=== PATIENT | female | born 1945 | race Caucasian/White ===

== ENCOUNTER → 2016-06-04 | Outpatient (CLI) | payer MEDICARE ==
[~2016-06-04] MED LIST: AMOX-355 PO; ATEN1TAB46 PO; AZTH50T PO; CALC-80 PO; CLON2TAB3 PO; FLC1T PO; FLUO40CA PO; HYDR-3583 PO; HYDR1TAB PO; MAGN400T6 PO; OXAP600T2 PO; PANT40TA PO; POTA20PA3 PO; PRD20T PO; SIMV80TA3 PO
--- OUTSIDE RECORDS SUMMARY | 2016-06-04 14:27 | XMS REPORT | Continuity of Care Document ---
Author Author [facility] Organization [facility] Address Unknown Phone Unavailable Allergies Active Description Code Type Severity Reaction Onset Reported/Identified Relationship to Patient Clinical Status Yes latex [id number] Drug Allergy Unknown N/A 05/16/2005 Yes Sulfa (Sulfonamide Antibiotics) [id number] Drug Allergy Unknown N/A 05/16/2005 Medications Problems Date Dx Coded Attending Type Code Diagnosis Diagnosed By 02/11/2010 Ot 530.81 02/11/2010 Ot 535.40 02/28/2010 Ot 575.11 11/26/2010 Ot 558.9 11/26/2010 Ot 783.21 01/19/2011 Ot 787.91 03/02/2011 Ot 787.91 04/21/2014 MIRIAN ARNOLD MD Ot 401.9 04/21/2014 MIRIAN ARNOLD MD Ot 780.2 04/21/2014 MIRIAN ARNOLD MD Ot 780.4 04/21/2014 MIRIAN ARNOLD MD Ot V76.12 05/08/2014 MIRIAN ARNOLD MD Ot 401.9 05/08/2014 MIRIAN ARNOLD MD Ot 780.2 05/08/2014 MIRIAN ARNOLD MD Ot 780.4 05/08/2014 MIRIAN ARNOLD MD Ot V76.12 03/29/2015 Ot V76.12 03/29/2015 Ot 530.81 03/29/2015 Ot 575.8 03/29/2015 Ot V72.81 03/29/2015 Ot V74.8 03/29/2015 Ot 787.91 03/29/2015 Ot V49.81 03/29/2015 Ot V76.12 03/29/2015 Ot 787.91 03/29/2015 Ot 786.50 03/29/2015 Ot V76.12 03/29/2015 Ot 789.00 03/29/2015 Ot V81.5 03/29/2015 MIRIAN ARNOLD MD Ot 610.1 03/29/2015 MIRIAN ARNOLD MD Ot V76.12 03/29/2015 MIRIAN ARNOLD MD Ot 401.9 03/29/2015 MIRIAN ARNOLD MD Ot 780.2 03/29/2015 MIRIAN ARNOLD MD Ot 780.4 03/29/2015 MIRIAN ARNOLD MD Ot V76.12 04/19/2015 LILIAN DOBSON Ot Z12.31 Procedures Results Encounters ACCT No. Visit Date/Time Discharge Status Pt. Type Provider Facility Loc./Unit Complaint [id number] 03/31/2014 13:56:00 2013 23:59:59 CLS Outpatient MIRIAN ARNOLD MD [facility] RAD [id number] 03/28/2013 08:54:00 2012 23:59:59 CLS Outpatient MIRIAN ARNOLD MD [facility] RAD [id number] 03/29/2015 12:47:00 ACT Outpatient LILIAN DOBSON [facility] RAD [id number] 05/04/2012 08:32:00 Document Registration [id number] 03/10/2012 09:19:00 Document Registration [id number] 04/08/2011 06:10:00 Document Registration [id number] 03/03/2011 00:00:00 Document Registration [id number] 02/17/2011 08:47:00 Document Registration [id number] 01/20/2011 00:00:00 Document Registration [id number] 12/03/2010 10:49:00 Document Registration [id number] 11/26/2010 08:55:00 Document Registration [id number] 10/22/2010 10:15:00 Document Registration [id number] 02/28/2010 05:38:00 Document Registration [id number] 02/25/2010 09:09:00 Document Registration [id number] 02/12/2010 09:01:00 Document Registration [id number] 02/11/2010 07:52:00 Document Registration [id number] 02/05/2010 08:40:00 Document Registration
--- NOTE | 2016-06-04 18:59 | Diagnostic Imaging Report ---
Digital mammogram bilateral screening. This study was compared to the prior exams of 03/29/2015, 03/31/2014, and 03/28/2013. At this time, there are no current complaints. The current study was also evaluated with a Computer Aided Detection (CAD) system. FINDINGS: The fibroglandular tissue in both breasts is heterogeneously dense. This does limit the sensitivity of this exam. Overall, there does not appear to have been any significant change when compared to the prior study. No primary or secondary sign of malignancy is noted. IMPRESSION: There is no radiographic evidence for malignancy. ACR BI-RADS Category 2: Benign findings. Result letter will be mailed to the patient. Note: At least 10% of breast cancer is not imaged by mammography. Dictated by: Dictated on workstation # [id number]
== END ==
LOC: RAD 14:24
PROVIDERS: ATTEND Nurse Practitioner Family
DX: Z12.31 Encounter for screening mammogram for malignant neoplasm of breast (principal)
CPT/HCPCS: 77067

== ENCOUNTER 2016-11-19 11:18 | Inpatient (IN) | payer MEDICARE ==
[~2016-11-19] VITALS: Ht 154.9 cm; Wt 70.4 kg
[2016-11-19 11:33] LABS: BASOPHILS % (AUTO) 0 % (0-10); EOSINOPHILS # (AUTO) 0.1 10^3/uL (0.0-0.3); EOSINOPHILS % (AUTO) 1 % (0-10); LYMPHOCYTES # (AUTO) 1.3 X 10^3 (1.0-4.0); LYMPHOCYTES % (AUTO) 19 % (12-44); MEAN CORPUSCULAR HEMOGLOBIN 31 PG (25-34); MEAN CORPUSCULAR HGB CONC 34 G/DL (32-36); MEAN CORPUSCULAR VOLUME 93 FL (80-99); MEAN PLATELET VOLUME 8.7 FL (7.4-10.4); MONOCYTES # (AUTO) 0.7 X 10^3 (0.0-1.0); MONOCYTES % (AUTO) 9 % (0-12); NEUTROPHILS % (AUTO) 71 % (42-75); PLATELET COUNT 195 10^3/uL (130-400); RED CELL DISTRIBUTION WIDTH 12.8 % (10.0-14.5); WHITE BLOOD COUNT 7.1 10^3/uL (4.3-11.0)
[2016-11-19 11:44] LABS: INR 0.9 (0.8-1.4); PROTHROMBIN TIME PATIENT 12.1 SEC (12.2-14.7)
--- NOTE | 2016-11-19 11:52 | ED Neurological Problem ---
General Chief Complaint: Neuro-Stroke Like Symptoms Stated Complaint: UNSTEADY Nursing Triage Note: ASSISTED PT OUT OF CAR. STATES SHE STARTED ACTING DIFFERENT YESTERDAY. HAVING TROUBLE WALKING AND ACTING "LAZY LIKE". PT STATES THIS MORNING SHE IS HAVING TROUBLE WITH CORDINATION ET NOT ABLE TO HOLD THINGS OR MAKE HER BED ALSO HAVING TROUBLE SAYING WHAT SHE WANTS TO SAY. Nursing Sepsis Screen: No Definite Risk Source: patient Exam Limitations: no limitations History of Present Illness Time seen by provider: 11:22 Initial Comments Here with who reports that the patient has not been acting right since yesterday with increasing confusion and difficulty with moving all of her extremities. Reports that she seems to be terribly uncoordinated and is now having difficulty with speech. Unsure of the cause. Reports taking her meds as directed. No report of fever or vomiting. Patient is slow talking but does answer questions and follows simple commands but appears to be globally weak. No recent injuries reported or noted. Timing/Duration: increasing Severity: moderate, severe Associated Symptoms: confusion, No fever/chills, No nausea/vomiting, slurred speech, trouble walking, weakness Allergies and Home Medications Allergies Coded Allergies: Sulfa (Sulfonamide Antibiotics) (Verified Allergy, Unknown, 05/16/05) latex (Verified Allergy, Unknown, 05/16/05) Home Medications Atenolol/Chlorthalidone 1 Each Tablet, 1 EACH PO DAILY, (Reported) Azathioprine 50 Mg Tablet, 112.5 MG PO EVENING MEAL, (Reported) Calcium Carbonate/Vitamin D3 1 Each Tablet, 1 EACH PO BID, (Reported) Clonazepam 2 Mg Tablet, 10 MG PO HS, (Reported) Fluoxetine Hcl 40 Mg Capsule, 1 EACH PO DAILY, (Reported) Folic Acid 1 Mg Tab, 1 EACH PO HS, (Reported) Oxaprozin 600 Mg Tablet, 1,200 MG PO DAILY, (Reported) Pantoprazole Sodium 40 Mg Tablet.dr, 40 MG PO DAILY, (Reported) Potassium Chloride 20 Meq Packet, 40 MEQ PO BID, (Reported) Constitutional: see HPI, No chills, No fever, malaise, weakness Eyes: No Symptoms Reported Ears, Nose, Mouth, Throat: no symptoms reported Respiratory: no symptoms reported Cardiovascular: no symptoms reported Gastrointestinal: No abdominal pain, No nausea, No vomiting Genitourinary: No dysuria, No pain : No Musculoskeletal: No back pain Skin: no symptoms reported Psychiatric/Neurological: See HPI, Cognitive Dysfunction, Weakness Endocrine: No Symptoms Reported All Other Systems Reviewed Negative Unless Noted: Yes Past Erkncug-Quuznj-Jmgvos Hx Patient Social History Alcohol Use: Denies Use Recreational Drug Use: No Smoking Status: Never a Smoker Recent Foreign Travel: No Contact w/Someone Who Travel: No Recent Infectious Disease Expo: No Surgeries HX Surgeries: Yes Surgeries: Breast, Hysterectomy Respiratory Hx Respiratory Disorders: No Cardiovascular Hx Cardiac Disorders: Yes Cardiac Disorders: Hypertension Neurological Hx Neurological Disorders: Yes Reproductive System Hx Reproductive Disorders: No Sexually Transmitted Disease: No Genitourinary Hx Genitourinary Disorders: No Gastrointestinal Hx Gastrointestinal Disorders: Yes Gastrointestinal Disorders: Colitis, Gastroesophageal Reflux Musculoskeletal Hx Musculoskeletal Disorders: Yes (ARTHRITIS/CHRONIC FATIGUE SYNDROME) Endocrine Hx Endocrine Disorders: No HEENT HX ENT Disorders: No Psychosocial Hx Psychiatric Problems: No Behavioral Health Disorders: Anxiety Blood Transfusions Hx Blood Disorders: No Reviewed Nursing Assessment Reviewed/Agree w Nursing PMH: Yes Family Medical History Significant Family History: No Pertinent Family Hx Physical Exam Vital Signs Vital Sign - Last 12Hours 11/19/16 11:18 Temp 98.0 Pulse 58 Resp 16 B/P (MAP) 153/75 Pulse Ox 93 Capillary Refill : Less Than 3 Seconds General Appearance: WD/WN, mild distress (confusion) HEENT: PERRL/EOMI, pharynx normal Neck: full range of motion, supple Respiratory: lungs clear, normal breath sounds Cardiovascular: regular rate, rhythm, no murmur Peripheral Pulses: 2+ Dorsalis Pedis (R), 2+ Left Dors-Pedis (L), 2+ Radial Pulses (R), 2+ Radial Pulses (L) Gastrointestinal: non tender, soft Back: normal inspection, no CVA tenderness, no vertebral tenderness Extremities: non-tender, normal inspection Neurologic/Psychiatric: alert, motor weakness (global), depressed affect, disoriented x 3 Crainal Nerves: normal hearing, abnormal speech (slowed with word searching), No facial asymmetry, No facial paresthesias, No facial weakness Coordination/Gait: abnormal gait, other (slowed and discoordinated heel-to- porter bilaterally. Unable to perform finger to nose due to discoordination.) Motor/Sensory: no sensory deficit, weak motor strength RUE, weak motor strength LUE, weak motor strength RLE, weak motor strength LLE Skin: normal color, warm/dry Progress/Results/Core Measures Results/Orders Lab Results Laboratory Tests Test 11/19/16 11:25 11/19/16 11:55 Range/Units White Blood Count 7.1 4.3-11.0 10^3/uL Red Blood Count 4.30 L 4.35-5.85 10^6/uL Hemoglobin 13.5 11.5-16.0 G/DL Hematocrit 40 35-52 % Mean Corpuscular Volume 93 80-99 FL Mean Corpuscular Hemoglobin 31 25-34 PG Mean Corpuscular Hemoglobin Concent 34 32-36 G/DL Red Cell Distribution Width 12.8 10.0-14.5 % Platelet Count 195 130-400 10^3/uL Mean Platelet Volume 8.7 7.4-10.4 FL Neutrophils (%) (Auto) 71 42-75 % Lymphocytes (%) (Auto) 19 12-44 % Monocytes (%) (Auto) 9 0-12 % Eosinophils (%) (Auto) 1 0-10 % Basophils (%) (Auto) 0 0-10 % Neutrophils # (Auto) 5.0 1.8-7.8 X 10^3 Lymphocytes # (Auto) 1.3 1.0-4.0 X 10^3 Monocytes # (Auto) 0.7 0.0-1.0 X 10^3 Eosinophils # (Auto) 0.1 0.0-0.3 10^3/uL Basophils # (Auto) 0.0 0.0-0.1 10^3/uL Prothrombin Time 12.1 L 12.2-14.7 SEC INR Comment 0.9 0.8-1.4 Activated Partial Thromboplast Time 24 24-35 SEC D-Dimer 0.48 0.00-0.49 UG/ML Sodium Level 134 L 135-145 MMOL/L Potassium Level 4.5 3.6-5.0 MMOL/L Chloride Level 106 98-107 MMOL/L Carbon Dioxide Level 21 21-32 MMOL/L Anion Gap 7 5-14 MMOL/L Blood Urea Nitrogen 18 7-18 MG/DL Creatinine 1.10 0.60-1.30 MG/DL Estimat Glomerular Filtration Rate 49 BUN/Creatinine Ratio 16 Glucose Level 111 H 70-105 MG/DL Calcium Level 9.5 8.5-10.1 MG/DL Total Bilirubin 0.5 0.1-1.0 MG/DL Aspartate Amino Transf (AST/SGOT) 33 5-34 U/L Alanine Aminotransferase (ALT/SGPT) 27 0-55 U/L Alkaline Phosphatase 54 40-136 U/L Troponin I < 0.30 <0.30 NG/ML Total Protein 7.6 6.4-8.2 GM/DL Albumin 4.2 3.2-4.5 GM/DL Urine Color YELLOW Urine Clarity VERY CLOUDY H Urine pH 5 5-9 Urine Specific [place] 1.020 1.016-1.022 Urine Protein 1+ H NEGATIVE Urine Glucose (UA) NEGATIVE NEGATIVE Urine Ketones NEGATIVE NEGATIVE Urine Nitrite NEGATIVE NEGATIVE Urine Bilirubin NEGATIVE NEGATIVE Urine Urobilinogen NORMAL NORMAL MG/DL Urine Leukocyte Esterase 3+ H NEGATIVE Urine RBC (Auto) 1+ H NEGATIVE Urine RBC 0-2 /HPF Urine WBC 25-50 H /HPF Urine Squamous Epithelial Cells 25-50 H /HPF Urine Crystals NONE /LPF Urine Bacteria TRACE /HPF Urine Casts NONE /LPF Urine Mucus NEGATIVE /LPF Urine Culture Indicated YES My Orders Orders - PARI RAYA MD Cbc With Automated Diff (11/19/16 11:23) Protime With Inr (11/19/16 11:23) Partial Thromboplastin Time (11/19/16 11:23) Comprehensive Metabolic Panel (11/19/16 11:23) Fibrin Degradation Products (11/19/16 11:23) Troponin I (11/19/16 11:23) Ua Culture If Indicated (11/19/16 11:23) Chest 1 View, Ap/Pa Only (11/19/16 11:23) Ekg Tracing (11/19/16 11:23) Nothing By Mouth (11/19/16 Dinner) Accucheck Stat ONCE (11/19/16 11:23) Saline Lock/Iv-Start (11/19/16 11:23) Saline Lock/Iv-Start (11/19/16 11:23) Vital Signs - Stroke Q15M (11/19/16 11:23) Ct Head Wo-R/O Stroke (11/19/16 11:23) O2 (11/19/16 11:23) Intake & Output 06,14,22 (11/19/16 11:23) Monitor-Rhythm Ecg Trace Only (11/19/16 11:23) Dysphagia Screening Tool (11/19/16 11:23) Urine Culture (11/19/16 11:55) Acetaminophen Tablet (Tylenol Tablet) (11/19/16 13:19) Vital Signs/I&O Vital Sign - Last 12Hours 11/19/16 11:18 Temp 98.0 Pulse 58 Resp 16 B/P (MAP) 153/75 Pulse Ox 93 Blood Pressure Mean: 101 Point of Care Testing Finger Stick Blood Glucose: 110 Progress Note : Progress Note Seen and evaluated on arrival. Stroke activation done as last him well time 18- 24 hours ago. Stroke scale done and shows 4 on scale. See attached accurate. This is mostly related to local weakness and difficulty with speech. Patient is not candidate for TPA due to timeframe. This was discussed with the who verbalize understanding. IV, labs, EKG, CT, chest x-ray and UA ordered. Monitor patient. 1300: CT scan findings noted. 1309: Case discussed with Dr. Echeverria who accepts patient for admission, observation status. Patient has passed her dysphagia screen. Patient is complaining of headache but is doing better currently. Tylenol 1 g by mouth given. Patient and family agree with plan. ECG Initial ECG Impression Date: Nov 19, 2016 Initial ECG Impression Time: 11:32 Initial ECG Rate: 69 Initial ECG Rhythm: Normal Sinus Initial ECG Comparisson: Unchanged Comment Sinus rhythm with normal axis. No evidence of ST elevation ID. Similar to previous of 25 February 2010. Interpreted by me. Diagnostic Imaging Diagonstic Imaging: CT Plain Films/CT/US/NM/MRI: head Comments [facility] [place] NAME: MARINE SAMPSON [facility] REC#: [id number] PT STATUS: REG ER : 1945 PHYSICIAN: PARI RAYA MD ADMIT DATE: 11/19/16/ER Draft Date of Exam:11/19/16 CT HEAD WO-R/O STROKE INDICATION: Left-sided weakness. Altered mental status. COMPARISON: 03/31/2014 TECHNIQUE: Routine noncontrast CT of the head was performed. FINDINGS: Since the previous exam, there has been interval development of a fairly well-circumscribed area of decreased attenuation within the periventricular deep white matter of the posterior right frontal lobe adjacent to the posterior horn of the right lateral ventricle. The appearance is suggestive of nonacute infarct. 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 There is no large area of loss of rob-white matter junction differentiation to suggest a large acute territorial infarct. Ventricles and cortical sulci are age-appropriate. There is no significant mass effect or midline shift. There is no evidence of intra-or extra-axial intracranial hemorrhage. No extra-axial masses or fluid collections are seen. IMPRESSION: 1. Interval development of a well-circumscribed area of decreased attenuation within the periventricular deep white matter of the posterior right frontal lobe. Findings are consistent with old infarct. 2. Interval development of punctate areas of old lacunar infarcts within the bilateral cerebellar hemispheres. In lieu of the above findings, this also raises the suspicion for possible history of thromboembolic event. 3. No evidence of intracranial mass or hemorrhage. Dictated on workstation # [id number] Dict: 11/19/16 1149 Trans: 11/19/16 1205 [facility] [id number] Interpreted by: RUSS RUIZ Electronically signed by: Diagonstic Imaging: Xray Plain Films/CT/US/NM/MRI: chest Comments [facility]. [place], [place] NAME: MARINE SAMPSON [facility] REC#: [id number] PT STATUS: REG ER : 1945 PHYSICIAN: PARI RAYA MD ADMIT DATE: 11/19/16/ER Draft Date of Exam:11/19/16 CHEST 1 VIEW, AP/PA ONLY INDICATION: Unsteady gait. Weakness. COMPARISON: None FINDINGS: Single frontal view of the chest demonstrates normal heart size and pulmonary vascularity. The lungs are well aerated and clear. No large pleural effusion or pneumothorax is seen. The visualized osseous structures show no acute abnormalities. IMPRESSION: 1. No acute cardiopulmonary process. Dictated on workstation # [id number] Dict: 11/19/16 1155 Trans: 11/19/16 1202 [place] [id number] Interpreted by: RUSS RUIZ Electronically signed by: Departure Communication Time/Spoke to Admitting Phy: 13:09 Impression Impression: Primary Impression: Altered mental status Qualified Codes: R41.82 - Altered mental status, unspecified Disposition: ADMITTED INPATIENT Condition: Stable Decision to Admit Reason: Admit from ER (General) Decision to Admit/Date: Nov 19, 2016 Time/Decision to Admit Time: 13:09 Departure-Patient Inst. Referrals: CHRISTINE ECHEVERRIA MD (PCP/Family) Primary Care Physician PARI RAYA MD Nov 19, 2016 11:52
[2016-11-19 11:55] LABS: ALANINE AMINOTRANSFERASE 27 U/L (0-55); ALBUMIN 4.2 GM/DL (3.2-4.5); ANION GAP 7 MMOL/L (5-14); ASPARTATE AMINO TRANSFERASE 33 U/L (5-34); BILIRUBIN,TOTAL 0.5 MG/DL (0.1-1.0); BLOOD UREA NITROGEN 18 MG/DL (7-18); BUN/CREATININE RATIO 16; CALCIUM 9.5 MG/DL (8.5-10.1); CARBON DIOXIDE 21 MMOL/L (21-32); CHLORIDE 106 MMOL/L (98-107); GFR ESTIMATED 49; GLUCOSE 111 MG/DL (70-105); POTASSIUM 4.5 MMOL/L (3.6-5.0); SODIUM 134 MMOL/L (135-145); TOTAL PROTEIN 7.6 GM/DL (6.4-8.2)
[2016-11-19 12:01] LABS: TROPONIN I < 0.30 NG/ML (<0.30)
--- NOTE | 2016-11-19 12:03 | Diagnostic Imaging Report ---
INDICATION: Unsteady gait. Weakness. COMPARISON: None FINDINGS: Single frontal view of the chest demonstrates normal heart size and pulmonary vascularity. The lungs are well aerated and clear. No large pleural effusion or pneumothorax is seen. The visualized osseous structures show no acute abnormalities. IMPRESSION: 1. No acute cardiopulmonary process. Dictated by: Dictated on workstation # [id number]
--- NOTE | 2016-11-19 12:06 | Diagnostic Imaging Report ---
INDICATION: Left-sided weakness. Altered mental status. COMPARISON: 03/31/2014 TECHNIQUE: Routine noncontrast CT of the head was performed. FINDINGS: Since the previous exam, there has been interval development of a fairly well-circumscribed area of decreased attenuation within the periventricular deep white matter of the posterior right frontal lobe adjacent to the posterior horn of the right lateral ventricle. The appearance is suggestive of nonacute infarct. 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 There is no large area of loss of rob-white matter junction differentiation to suggest a large acute territorial infarct. Ventricles and cortical sulci are age-appropriate. There is no significant mass effect or midline shift. There is no evidence of intra-or extra-axial intracranial hemorrhage. No extra-axial masses or fluid collections are seen. IMPRESSION: 1. Interval development of a well-circumscribed area of decreased attenuation within the periventricular deep white matter of the posterior right frontal lobe. Findings are consistent with old infarct. 2. Interval development of punctate areas of old lacunar infarcts within the bilateral cerebellar hemispheres. In lieu of the above findings, this also raises the suspicion for possible history of thromboembolic event. 3. No evidence of intracranial mass or hemorrhage. Dictated by: Dictated on workstation # [id number]
[2016-11-19 12:16] LABS: BILIRUBIN,URINE NEGATIVE (NEGATIVE); KETONES,URINE NEGATIVE (NEGATIVE); LEUKOCYTE ESTERASE ,URINE 3+ (NEGATIVE); NITRITE,URINE NEGATIVE (NEGATIVE); PH,URINE 5 (5-9); PROTEIN,URINE 1+ (NEGATIVE); UROBILINOGEN,URINE NORMAL (NORMAL)
[2016-11-19 12:30] LABS: SQUAMOUS EPITHELIAL CELL,UR 25-50 /HPF; WBC,URINE 25-50 /HPF
[2016-11-19] MEDS ORDERED: ACETAMINOPHEN 500 MG TAB (TYLENOL) PO STA (13:19)
[2016-11-19] MEDS ORDERED: PRAV80TA2 PO (13:56)
[2016-11-19] MEDS ORDERED: MESA1.2T2 PO (13:56)
[2016-11-19] MEDS ORDERED: SPIR25TA3 PO (13:56)
[2016-11-19] MEDS ORDERED: CLON0.5T3 PO (13:56)
[2016-11-19] MEDS ORDERED: LOSA100T28 PO (13:56)
[2016-11-19] MEDS ORDERED: PRAM0.5T9 PO (13:56)
[2016-11-19] MEDS ORDERED: DENO60DI SQ (13:56)
[2016-11-19] MEDS ORDERED: SUCR1TAB PO (13:56)
[2016-11-19] MEDS ORDERED: TIMO5DRO5 OU (13:56)
[2016-11-19] MEDS ORDERED: DIPH1TAB25 PO (13:56)
[2016-11-19] MEDS ORDERED: OMEG-9 PO (13:56)
[2016-11-19] MEDS ORDERED: LORA10TA44 PO (13:56)
[2016-11-19] MEDS ORDERED: POTA20TA8 PO (13:56)
[2016-11-19] MEDS ORDERED: BIMA2.5D4 OU (13:56)
[2016-11-19 14:15] VITALS: BP 150/68
[2016-11-19] MEDS: NS IV 1000 ML 1,000 ML IV SCH (15:09)
[2016-11-19 16:50] VITALS: BP 145/80
[2016-11-19] MEDS ORDERED: SUCRALFATE 1 GM (CARAFATE) TAB PO PRN (19:15)
--- NOTE | 2016-11-19 19:15 | History & Physicial ---
History of Present Illness History of Present Illness Reason for visit/HPI PT REPORTS THAT SHE STARTED TO FEEL POORLY YESTERDAY. SHE REPORTS THAT SHE HAD A WEIRD SENSATION IN HER HEAD, FELT LIKE SHE HAD A VICE AROUND HER HEAD ALL DAY TODAY. SHE REPORTS A BAD NIGHT YESTERDAY - WITH SIGNIFICANTLY RESTLESS LEGS AND WOKE UP FEELING FUZZY HEADED AND WEAK. SHE REPORTS THAT SHE WAS NOT ABLE TO MOVE HER ARMS OR LEGS CORRECTLY AND COULD NOT STAND ON HER OWN. AT THIS TIME SHE IS FEELING BETTER, HER WEAKNESS IS IMPROVED, BUT SHE IS NOT YET BACK TO NORMAL. Date of Admission Nov 19, 2016 at 13:15 Date Seen by Provider: Nov 19, 2016 Time Seen by Provider: 18:30 I consulted on this patient on 11/19/16 19:10 Attending Physician Christine Echeverria MD Admitting Physician Christine Echeverria MD Consult Allergies and Home Medications Allergies Coded Allergies: Sulfa (Sulfonamide Antibiotics) (Verified Allergy, Unknown, 05/16/05) latex (Verified Allergy, Unknown, 05/16/05) Home Medications Azathioprine 50 Mg Tablet, 75 MG PO 1700, (Reported) TAKES 1 & 1/2 (50MG) TABLET Bimatoprost 2.5 Ml Drops, 1 DROP OU HS, (Reported) Calcium Carbonate/Vitamin D3 1 Each Tablet, 1 TAB PO HS, (Reported) Clonazepam 0.5 Mg Tablet, 1 MG PO HS, (Reported) TAKES 2 (0.5MG) TABLETS Denosumab 60 Mg/1 Ml Disp.syrin, 60 MG SQ EVERY 6 MONTHS, (Reported) Diphenoxylate HCl/Atropine 1 Each Tablet, 1 TAB PO HS PRN for DIARRHEA, ( Reported) Fluoxetine Hcl 40 Mg Capsule, 40 MG PO DAILY, (Reported) Folic Acid 1 Mg Tab, 1 MG PO 1200, (Reported) Loratadine 10 Mg Tab.rapdis, 10 MG PO DAILY, (Reported) Losartan Potassium 100 Mg Tablet, 100 MG PO HS, (Reported) Mesalamine 1.2 Gm Tablet.dr, 1.2 GM PO HS, (Reported) [place]-3/Dha/Epa/Fish Oil 1 Each Capsule.dr, 1,400 MG PO 1700, (Reported) Potassium Chloride 20 Meq Tab.er.prt, 20 MEQ PO DAILY, (Reported) Pramipexole Di-HCl 0.5 Mg Tablet, 0.5 MG PO HS, (Reported) Pravastatin Sodium 80 Mg Tablet, 80 MG PO HS, (Reported) Spironolactone 25 Mg Tablet, 25 MG PO DAILY, (Reported) Sucralfate 1 Gm Tablet, 1 GM PO BID PRN for STOMACH UPSET, (Reported) Timolol Maleate 5 Ml Drops, 1 DROP OU BID, (Reported) Past [id number] Hx Patient Social History Marrital Status: Living Status: LIVES AT HOME WITH SPOUSE Employed/Student: retired Alcohol Use: Denies Use Recreational Drug Use: No Smoking Status: Never a Smoker 2nd Hand Smoke Exposure: No Physical Abuse Screen: No Sexual Abuse: No Recent Foreign Travel: No Contact w/other who traveled: No Recent Hopitalizations: No (2005. strep, hysterectomy, lumpectomy, collapsed at work 15 years ago) Recent Infectious Disease Expo: No Seasonal Allergies Seasonal Allergies: No Surgeries HX Surgeries: Yes Surgeries: Breast, Hysterectomy Respiratory Hx Respiratory Disorders: No Cardiovascular Hx Cardiovascular Disorders: Yes Cardiac Disorders: Hypertension Neurological Hx Neurological Disorders: Yes Neurological Disorders: TIA Reproductive System : No Hx Reproductive Disorders: No Sexually Transmitted Disease: No Female Reproductive Disorders: Denies Genitourinary Hx Genitourinary Disorders: No Gastrointestinal Hx Gastrointestinal Disorders: Yes Gastrointestinal Disorders: Colitis, Gastroesophageal Reflux, Liver Disease/ Jaundice, Hemorrhoids Musculoskeletal Hx Musculoskeletal Disorders: Yes (ARTHRITIS/CHRONIC FATIGUE SYNDROME) Musculoskeletal Disorders: Arthritis Endocrine Hx Endocrine Disorders: No HEENT HX ENT Disorders: No HEENT Disorders: Cataract, Glaucoma Loss of Vision: Denies Hearing Impairment: Denies Cancer Hx Cancer: No Psychosocial Hx Psychiatric Problems: Yes Behavioral Health Disorders: Anxiety Blood Transfusions Hx Blood Disorders: No Adverse Reaction to a Blood Tr: No Reviewed Nursing Assessment Reviewed/Agree w Nursing PMH: Yes Family Medical History Significant Family History: Hypertension Constitutional: No chills, No fever, malaise, weakness EENTM: No blurred vision, No double vision, No hoarseness, No throat pain Respiratory: No cough, No dyspnea on exertion, No short of breath Cardiovascular: No chest pain, No edema, No palpitations Gastrointestinal: No abdominal pain, No constipation, No diarrhea, No nausea, No vomiting Genitourinary: no symptoms reported : No Musculoskeletal: muscle weakness Skin: No change in color, No lesions, No rash Psychiatric/Neurological: Anxiety, Weakness All Other Systems Reviewed Negative Unless Noted: Yes Physical Exam Vital Signs Vital Sign - Last 12Hours 11/19/16 11/19/16 11:18 14:10 Temp 98.0 Pulse 58 Resp 16 B/P (MAP) 153/75 Pulse Ox 93 O2 Delivery Room Air Capillary Refill : Less Than 3 Seconds General Appearance: No Apparent Distress, WD/WN Eyes: Bilateral Eye EOMI, Bilateral Eye Normal Inspection, Bilateral Eye PERRL HEENT: PERRL/EOMI, Pharynx Normal Neck: Full Range of Motion, Supple Respiratory: Chest Non Tender, Lungs Clear, Normal Breath Sounds, No Accessory Muscle Use, No Respiratory Distress Cardiovascular: Regular Rate, Rhythm, No Edema Gastrointestinal: Normal Bowel Sounds, No Organomegaly, Non Tender, Soft Rectal: Deferred Extremity: Normal Capillary Refill, Non Tender, No Calf Tenderness, No Pedal Edema Neurologic/Psychiatric: Alert, Oriented x3, No Motor/Sensory Deficits, Normal Mood/Affect, nuclear physician II-XII Norm as Tested Skin: Normal Color, Warm/Dry Lymphatic: No Adenopathy Assessment/Plan Assessment and Plan WEAKNESS CONFUSION HX OF TIA HYPERTENSION ANXIETY RESTLESS LEG SYNDROME WEAKNESS AND CONFUSION - IMPROVED AFTER IV FLUIDS, CONTINUE WITH SUPPORTIVE CARE. - CHECK MRI OF BRAIN AND CAROTID ULTRASOUND - CT OF HEAD SHOWED THE FOLLOWING: IMPRESSION: 1. Interval development of a well-circumscribed area of decreased attenuation within the periventricular deep white matter of the posterior right frontal lobe. Findings are consistent with old infarct. 2. Interval development of punctate areas of old lacunar infarcts within the bilateral cerebellar hemispheres. In lieu of the above findings, this also raises the suspicion for possible history of thromboembolic event. 3. No evidence of intracranial mass or hemorrhage. Dictated on workstation # [id number] Interpreted by: RUSS RUIZ Electronically signed by: RUSS RUIZ 11/19/16 2692 HYPERTENSION - START HOME REGIMEN OF [place], HOLD SPIRONOLACTONE. MONITOR BLOOD PRESSURES SERIALLY. ANXIETY - 1/2 DOSE OF CLONAZEPAM TO BE RESTARTED. RESTLESS LEG SYNDROME - REQUIP RESTARTED. DVT PROPHYLAXIS - START SCD'S GI PROPHYLAXIS - PEPCID TO BE STARTED. Problems: Admission Diagnosis WEAKNESS CONFUSION HX OF TIA HYPERTENSION ANXIETY RESTLESS LEG SYNDROME Clinical Quality Measures DVT/VTE Risk/Contraindication: Risk Factor Score Per Nursin RFS Level Per Nursing on Admit: 2=Moderate CHRISTINE ECHEVERRIA MD Nov 19, 2016 19:15
[2016-11-19] MEDS ORDERED: ASPIRIN E.C. 325 MG (ECOTRIN) TABLET PO NR (19:38)
[2016-11-19 20:00] VITALS: BP 144/68
[2016-11-19] MEDS: TIMOLOL MALEATE 0.5% 5 ML (TIMOPTIC) BTL OU SCH (20:31)
[2016-11-19] MEDS: LATANOPROST 0.005% (XALATAN) OPHTH SOLN 2.5 ML OU SCH (20:31)
[2016-11-19] MEDS: LOSARTAN 50 MG (COZAAR) TAB PO SCH (20:32)
[2016-11-19] MEDS: clonazePAM 0.5 MG (KlonoPIN) TAB PO SCH (20:33)
[2016-11-19] MEDS: PRAMIPEXOLE 0.5 MG TAB (MIRAPEX) PO SCH (20:34)
[2016-11-19] MEDS: ATORVASTATIN 80 MG (LIPITOR) TABLET PO SCH (20:34)
[2016-11-20] VITALS (7 sets, daily range): BP systolic 125–157; BP diastolic 60–84
[2016-11-20 06:19] LABS: BASOPHILS % (AUTO) 0 % (0-10); EOSINOPHILS # (AUTO) 0.1 10^3/uL (0.0-0.3); EOSINOPHILS % (AUTO) 1 % (0-10); LYMPHOCYTES # (AUTO) 1.6 X 10^3 (1.0-4.0); LYMPHOCYTES % (AUTO) 22 % (12-44); MEAN CORPUSCULAR HEMOGLOBIN 32 PG (25-34); MEAN CORPUSCULAR HGB CONC 34 G/DL (32-36); MEAN CORPUSCULAR VOLUME 93 FL (80-99); MEAN PLATELET VOLUME 9.1 FL (7.4-10.4); MONOCYTES # (AUTO) 0.7 X 10^3 (0.0-1.0); MONOCYTES % (AUTO) 9 % (0-12); NEUTROPHILS # (AUTO) 4.9 X 10^3 (1.8-7.8); NEUTROPHILS % (AUTO) 67 % (42-75); PLATELET COUNT 174 10^3/uL (130-400); RED BLOOD COUNT 3.98 10^6/uL (4.35-5.85); RED CELL DISTRIBUTION WIDTH 12.8 % (10.0-14.5); WHITE BLOOD COUNT 7.3 10^3/uL (4.3-11.0)
[2016-11-20 06:38] LABS: ALANINE AMINOTRANSFERASE 21 U/L (0-55); ALBUMIN 3.9 GM/DL (3.2-4.5); ANION GAP 9 MMOL/L (5-14); ASPARTATE AMINO TRANSFERASE 27 U/L (5-34); BILIRUBIN,TOTAL 0.5 MG/DL (0.1-1.0); BLOOD UREA NITROGEN 16 MG/DL (7-18); BUN/CREATININE RATIO 18; CALCIUM 8.9 MG/DL (8.5-10.1); CARBON DIOXIDE 20 MMOL/L (21-32); CHLORIDE 107 MMOL/L (98-107); CREATININE SERUM 0.88 MG/DL (0.60-1.30); GFR ESTIMATED > 60; GLUCOSE 99 MG/DL (70-105); POTASSIUM 4.1 MMOL/L (3.6-5.0); SODIUM 136 MMOL/L (135-145); TOTAL PROTEIN 6.8 GM/DL (6.4-8.2)
--- NOTE | 2016-11-20 09:01 | Progress Note (SOAP) ---
Subjective Date Seen by Provider: Nov 20, 2016 Time Seen by Provider: 09:00 Subjective/Events-last exam PT FEELING BETTER TODAY - SHE STATES THAT SHE DOES FEEL STRONGER TODAY. SHE STATES THAT SHE IS NOT HAVING DIZZINESS, NAUSEA CHEST PAIN. Review of Systems General: No Chills, Fatigue HEENT: No Head Aches Pulmonary: No Dyspnea, No Cough Cardiovascular: No: Chest Pain, Palpitations Gastrointestinal: No: Nausea, Abdominal Pain Neurological: Weakness Objective Exam Vital Signs Date Time Temp Pulse Resp B/P (MAP) Pulse Ox O2 Delivery O2 Flow Rate FiO2 11/20/16 08:00 97.4 65 16 132/79 98 Room Air 11/20/16 04:00 98.0 62 18 132/67 95 Room Air 11/20/16 00:00 98.6 61 16 130/60 94 Room Air 11/19/16 20:00 97.9 62 18 144/68 99 Room Air 11/19/16 16:50 97.5 61 18 145/80 97 Room Air 11/19/16 14:15 58 16 150/68 100 Room Air 11/19/16 14:10 Room Air 11/19/16 13:43 57 18 98 11/19/16 11:18 98.0 58 16 153/75 93 I & O 11/20/16 07:00 Intake Total 600 ml Output Total 800 ml Balance -200 ml Capillary Refill : Less Than 3 Seconds General Appearance: No Apparent Distress, WD/WN HEENT: PERRL/EOMI, Pharynx Normal Neck: Full Range of Motion, Supple Respiratory: Chest Non Tender, Lungs Clear, Normal Breath Sounds Cardiovascular: Regular Rate, Rhythm Gastrointestinal: normal bowel sounds, non tender, soft Extremity: No Pedal Edema Neurologic/Psychiatric: Alert, Oriented x3, No Motor/Sensory Deficits Skin: Warm/Dry Lymphatic: No Adenopathy Results Lab Laboratory Tests 11/19/16 11:25: White Blood Count 7.1, Red Blood Count 4.30L, Hemoglobin 13.5, Hematocrit 40, Mean Corpuscular Volume 93, Mean Corpuscular Hemoglobin 31, Mean Corpuscular Hemoglobin Concent 34, Red Cell Distribution Width 12.8, Platelet Count 195, Mean Platelet Volume 8.7, Neutrophils (%) (Auto) 71, Lymphocytes (%) (Auto) 19, Monocytes (%) (Auto) 9, Eosinophils (%) (Auto) 1, Basophils (%) (Auto) 0, Neutrophils # (Auto) 5.0, Lymphocytes # (Auto) 1.3, Monocytes # (Auto) 0.7, Eosinophils # (Auto) 0.1, Basophils # (Auto) 0.0, Prothrombin Time 12.1L, INR Comment 0.9, Activated Partial Thromboplast Time 24, D-Dimer 0.48, Sodium Level 134L, Potassium Level 4.5, Chloride Level 106, Carbon Dioxide Level 21, Anion Gap 7, Blood Urea Nitrogen 18, Creatinine 1.10, Estimat Glomerular Filtration Rate 49, BUN/Creatinine Ratio 16, Glucose Level 111H, Calcium Level 9.5, Total Bilirubin 0.5, Aspartate Amino Transf (AST/SGOT) 33, Alanine Aminotransferase ( ALT/SGPT) 27, Alkaline Phosphatase 54, Troponin I < 0.30, Total Protein 7.6, Albumin 4.2 11/19/16 11:37: Glucometer 110 11/19/16 11:55: Urine Color YELLOW, Urine Clarity VERY CLOUDYH, Urine pH 5, Urine Specific [place] 1.020, Urine Protein 1+H, Urine Glucose (UA) NEGATIVE, Urine Ketones NEGATIVE, Urine Nitrite NEGATIVE, Urine Bilirubin NEGATIVE, Urine Urobilinogen NORMAL, Urine Leukocyte Esterase 3+H, Urine RBC (Auto) 1+H, Urine RBC 0-2, Urine WBC 25-50H, Urine Squamous Epithelial Cells 25-50H, Urine Crystals NONE, Urine Bacteria TRACE, Urine Casts NONE, Urine Mucus NEGATIVE, Urine Culture Indicated YES 11/20/16 05:38: White Blood Count 7.3, Red Blood Count 3.98L, Hemoglobin 12.6, Hematocrit 37, Mean Corpuscular Volume 93, Mean Corpuscular Hemoglobin 32, Mean Corpuscular Hemoglobin Concent 34, Red Cell Distribution Width 12.8, Platelet Count 174, Mean Platelet Volume 9.1, Neutrophils (%) (Auto) 67, Lymphocytes (%) (Auto) 22, Monocytes (%) (Auto) 9, Eosinophils (%) (Auto) 1, Basophils (%) (Auto) 0, Neutrophils # (Auto) 4.9, Lymphocytes # (Auto) 1.6, Monocytes # (Auto) 0.7, Eosinophils # (Auto) 0.1, Basophils # (Auto) 0.0, Sodium Level 136, Potassium Level 4.1, Chloride Level 107, Carbon Dioxide Level 20L, Anion Gap 9, Blood Urea Nitrogen 16, Creatinine 0.88, Estimat Glomerular Filtration Rate > 60, BUN/ Creatinine Ratio 18, Glucose Level 99, Calcium Level 8.9, Total Bilirubin 0.5, Aspartate Amino Transf (AST/SGOT) 27, Alanine Aminotransferase (ALT/SGPT) 21, Alkaline Phosphatase 44, Total Protein 6.8, Albumin 3.9 Microbiology 11/19/16 Urine Culture - Preliminary, Resulted Group B Streptococci See Comments Assessment/Plan Assessment/Plan Assess & Plan/Chief Complaint WEAKNESS CONFUSION HX OF TIA HYPERTENSION ANXIETY RESTLESS LEG SYNDROME WEAKNESS AND CONFUSION - IMPROVED AFTER IV FLUIDS, CONTINUE WITH SUPPORTIVE CARE. - CHECK MRI OF BRAIN AND CAROTID ULTRASOUND - CT OF HEAD SHOWED THE FOLLOWING: IMPRESSION: 1. Interval development of a well-circumscribed area of decreased attenuation within the periventricular deep white matter of the posterior right frontal lobe. Findings are consistent with old infarct. 2. Interval development of punctate areas of old lacunar infarcts within the bilateral cerebellar hemispheres. In lieu of the above findings, this also raises the suspicion for possible history of thromboembolic event. 3. No evidence of intracranial mass or hemorrhage. Dictated on workstation # [id number] Interpreted by: RUSS RUIZ Electronically signed by: RUSS RUIZ 11/19/16 [id number] HYPERTENSION - START HOME REGIMEN OF [place], HOLD SPIRONOLACTONE. MONITOR BLOOD PRESSURES SERIALLY. ANXIETY - 1/2 DOSE OF CLONAZEPAM TO BE RESTARTED. RESTLESS LEG SYNDROME - REQUIP RESTARTED. DVT PROPHYLAXIS - START SCD'S GI PROPHYLAXIS - PEPCID TO BE STARTED. Clinical Quality Measures DVT/VTE Risk/Contraindication: Risk Factor Score Per Nursin RFS Level Per Nursing on Admit: 2=Moderate CHRISTIEN LUNDY MD Nov 20, 2016 09:01
--- NOTE | 2016-11-20 09:42 | Diagnostic Imaging Report ---
PROCEDURE: MR imaging of the brain without contrast. TECHNIQUE: Multiplanar, multisequence MR imaging of the brain was performed without contrast. INDICATION: Unsteadiness, weakness accompanied by head pain. Also with confusion. COMPARISON: 08/12/2007 FINDINGS: There are multiple predominantly right-sided supratentorial foci of edema and abnormal diffusion restriction in the parietal and occipital lobes suggestive of multiple small punctate foci of acute to subacute ischemia. The largest confluent area of suspected recent infarct adjacent to the posterior body of the right lateral ventricle measures 15 mm x 8mm. None of the foci exert a mass effect. There are at least 2 tiny peripheral cortical foci in the high posterior left frontal lobe and the high posterior left parietal lobes near the vertex. The brainstem and posterior fossa were unremarkable. Findings on the right suggest multiple foci of ischemia on a watershed infarct basis. Correlation with a CT angiography of the neck and head recommended as further evaluation. No hemorrhagic component or resultant mass effect. Orbits and paranasal sinuses are unremarkable. No abnormal extra-axial fluid collection. The basilar cisterns are patent. The sulci were non-effaced. IMPRESSION: Multiple small bilateral predominantly supratentorial, right greater than left, areas of small cortical infarct. On the right, these are predominately along the MCA/[employer] junction and are likely of a watershed basis. Correlative CT angio neck and head recommended as further evaluation. A few tiny left-sided cortical infarcts peripherally are noted, as well. No posterior fossa or brainstem ischemia. No hemorrhagic component or mass effect. I will phone these results to the ordering physician. Dictated by: Dictated on workstation # [id number]
[2016-11-20] MEDS: FLUoxetine HCL 20 MG (PROzac) CAP PO SCH (10:12)
[2016-11-20] MEDS: cefTRIAXone INJECTION 1,000 MG in NS (IVPB) 50 ML IV SCH (10:13)
[2016-11-20] MEDS: KCL 20 MEQ TAB (K-DUR) PO SCH (10:13)
[2016-11-20] MEDS: ASPIRIN E.C. 325 MG (ECOTRIN) TABLET PO SCH (10:13)
[2016-11-20] MEDS: TIMOLOL MALEATE 0.5% 5 ML (TIMOPTIC) BTL OU SCH ×2 (10:13→20:24)
[2016-11-20] MEDS ORDERED: CLOPIDOGREL 75 MG (PLAVIX) TABLET PO NR (10:15)
--- NOTE | 2016-11-20 11:00 | Diagnostic Imaging Report ---
PROCEDURE: US Carotid Duplex Bilateral. TECHNIQUE: Multiple real-time grayscale images were obtained over the carotid arteries in various projections bilaterally. Additional duplex Doppler and color Doppler images were also obtained. INDICATION: CVA. Altered mental status. Speech difficulty. FINDINGS: There is no significant plaque seen on grayscale images. Color Doppler demonstrates patency of the common, internal and external carotid arteries bilaterally. Antegrade flow in the vertebral arteries is seen on both sides. Peak systolic velocities in the right the ICA is 55, 69 and 70 cm/s from proximal to distal and on the left side is 77, 71 and 90 cm/s. ICA over CCA ratio is up to 1.3 on the right side and up to one on the left side. IMPRESSION: Estimated underlying stenosis is in the range of 0-40% bilaterally. Dictated by: Dictated on workstation # [id number]
[2016-11-20] MEDS ORDERED: IOHEXOL 350 MG/ML 100 ML (OMNIPAQUE 350) VIAL IV ONE (11:15)
[2016-11-20] MEDS: NS IV 1000 ML 1,000 ML IV SCH ×2 (11:34→16:07)
--- NOTE | 2016-11-20 14:45 | Physical Therapy Evaluation ---
PT Evaluation-General Medical Diagnosis Admission Date Nov 20, 2016 at 09:52 Medical Diagnosis: AMS Onset Date: Nov 19, 2016 Therapy Diagnosis Therapy Diagnosis: debility Height/Weight Height (Feet): 5 Height (Inches): 1.00 Weight (Pounds): 155 Weight (Ounces): 5.0 Precautions Precautions/Isolations: Fall Prevention, Standard Precautions Referral Physician: Juwan Reason for Referral: Evaluation/Treatment Medical History Pertinent Medical History: HTN Additional Medical History restless leg syndrome, anxiety Current History to ER via spouse; reported patient was acting "different", unable to hold things , etc. Reviewed History: Yes Social History Home: Multilevel Current Living Status: Spouse PT Steps Into Home: 3 PT Steps Inside Home: 14 Prior/Core FIM Prior Level of Function Functional [place] Measure 0=Not Assessed/NA 4=Minimal Assistance 1=Total Assistance 5=Supervision or Setup 2=Maximal Assistance 6=Modified [place] 3=Moderate Assistance 7=Complete [place] Bed Mobility: 7 Transfers (B,C,W/C) (FIM): 7 Gait: 7 PT Evaluation-Current Subjective Agrees to PT. Pain Numeric Pain Scale: 0-No Pain Location: No Pain Reported Objective Patient Orientation: Normal For Age Problem Solving: Fair ROM/Strength ROM Lower Extremities bilateral LE WNL Strenght Lower Extremities left knee flexion/extension 4/5; hip flexion 4/5; ankle dorsi/plantarflexion 4/5 right knee flexion/extension 4/5; hip flexion 4/5; ankle dorsi/plantarflexion 4/ 5 Integumentary/Posture Integumentary refer to nursing notes Bowel Incontinence: No Bladder Incontinence: No Posture WNL Neuromuscular (Tone, Coordination, Reflexes) grossly intact Sensory Vision: glaucoma Hearing: Functional Sensation Right Lower Extremit: Intact Sensation Left Lower Extremity: Intact Transfers Functional [place] Measure 0=Not Assessed/NA 4=Minimal Assistance 1=Total Assistance 5=Supervision or Setup 2=Maximal Assistance 6=Modified [place] 3=Moderate Assistance 7=Complete [place] Transfers (B, C, W/C) (FIM): 7 Scootin Rollin Supine to/from Sit: 7 Sit to/from Stand: 7 Gait Mode of Locomotion: Walk Anticipated Mode of Locomotion: Walk Gait (FIM): 6 Distance (FIM): 3=150 ft Distance: 800' Gait Level of Assist: 6 Gait Persons Needed: 1 Gait Assistive Device: FWW Comments/Gait Description safe and functional with FWW Stairs Stairs (FIM): 5 #of Steps: 12 Level of Assist: 5 Balance Sitting Static: Normal Sitting Dynamic: Normal Standing Static: Normal Standing Dynamic: Normal Assessment/Needs 71 y.o. female, will benefit from short term skilled PT to address functional strength and mobility to improve current LOF and to safely return to home at maximum. Rehab Potential: Good PT Short Term Goals Short Term Goals Time Frame: Nov 22, 2016 Transfers (B,C,W/C) (FIM): 7 Gait (FIM): 6 Distance (FIM): 3=150 ft Gait Level of Assist: 6 Gait Assistive Device: FWW PT Plan Treatment/Plan Treatment Plan: Continue Plan of Care Treatment Plan: Education, Functional Activity Noah, Functional Strength, Gait , Safety, Therapeutic Exercise Treatment Duration: Nov 22, 2016 Frequency: Daily Estimated Hrs Per Day: .25 hour per day Patient and/or Family Agrees t: Yes Safety Risks/Education Patient Education: Gait Training, Steps Teaching Recipient: Patient Teaching Methods: Demonstration, Discussion Response to Teaching: Verbalize Understanding, Return Demonstration Discharge Recommendations Therapy D/C Recommendations: Home w/ Family Support Equpiment Recommendations-D/C: Front Wheeled Walker Time/GCodes Time In: 1410 Time Out: 1435 Total Billed Treatment Time: 25 [facility] C[facility] Necessary: WILLIAMS Stone PT Nov 20, 2016 14:45
--- NOTE | 2016-11-20 16:48 | Occupational Therapy Eval ---
OT Evaluation-General/PLF Medical Diagnosis Admission Date Nov 20, 2016 at 09:52 Medical Diagnosis: AMS Onset Date: Nov 19, 2016 Therapy Diagnosis Therapy Diagnosis: Weakness Height/Weight Height (Feet): 5 Height (Inches): 1.00 Weight (Pounds): 155 Weight (Ounces): 5.0 Precautions Precautions/Isolations: Fall Prevention, Standard Precautions Safety Interventions: Bed Exit Alarm, Reorient-Attempt, Reorient-PRN Referral Physician: Juwan Referral Reason: Activity Tolerance, Self Care, Evaluation/Treatment, Strengthening/ROM Medical History Pertinent Medical History: Arthritis, GERD, HTN Additional Medical History Breast surgery, hysterectomy, anxiety, TIA, old infarct Current History Pt. states that she became very weak at home. States that she couldnt move her legs or arms well. States that she wasn't dizzy, but just wasnt "thinking" straight. Reviewed History: Yes Social History Home: Multilevel (Bedroom on second floor) Current Living Status: Spouse Entry Into Home: Stairs With Railing Steps Into Home: 3 Steps Inside Home: 14 ADL-Prior Level of Function ADL PLOF Comments Pt. states that she was independent with all tasks, and that her spouse assisted her. States that she does not drive due to visual issues. DME/Equipment: Bath Chair, Tub/Shower Occupation: Retired from [employer] Self: No OT Current Status Subjective No pain reported. Pt. states that she is "feeling better" today. Appearance Pt. in bed. Agrees to work with OT. Mental Status/Objective Patient Orientation: Person Attachments: IV Current Glasses/Contacts: Yes Hand Dominance: Right Upper Extremity ROM Pt. is able to demonstrate full ROM in bilateral UE. Upper Extremity Coordination intact Upper Extremity Strength 3+/5 bilateral UE strength ADL-Treatment Functional [place] Measure 0=Not Assessed/NA 4=Minimal Assistance 1=Total Assistance 5=Supervision or Setup 2=Maximal Assistance 6=Modified [place] 3=Moderate Assistance 7=Complete IndependenceIRFPAI Quality Coding Scale 6 Independent with activity with or without an assistive device 5 Patient requires set up or clean up by helper. Patient completes activity by themselves 4 Supervision or touching assist (CGA). [place] provide cues , steadying assist 3 The helper provides less than half the effort to complete the activity 2 The helper provides more than half the effort to complete the activity 1 Dependent. The helper does all the effort to complete an activity 7 Patient refused to complete or attempt activity 9 The patient did not perform the activity before the current illness or injury 88 Not attempted due to Medical conditions or safety concerns Bathing (FIM): 5 (Pt. completely showered with SBA. Pt. stood for most of shower, closed eyes to wash hair. Tolerated this well. OT close due to first time seeing pt. Pt. states that her spouse will be with her for these things at all times at home.) Lower Body Dressing (FIM): 7 (Pt. able to doff/don socks independently. No other street clothing available. Able to doff underwear, and was going to call spouse to bring her new ones.) Transfers (B, C, W/C) (FIM): 5 (Pt. requires SBA with walker due to stating that she still "feels a little week." Spouse will be with her.) Shower Transfer (FIM): 5 Other Treatments Pt. demonstrates ability to shower, and don hospital gown, socks. Pt. is educated on safety, energy conservation, and taking her time at home. Verbalizes understanding. Pt. states that she feels like she is doing better. Does report that her spouse will not "leave my side" when she gets home. Pt. is able to transfer back to bed independently after shower. Education OT Patient Education: Correct positioning, Energy conservation, Modified ADL techniques, Progress toward Goal/Update tx plan, Purpose of tx/functional activities, Reviewed precautions, Rehab process, Transfer techniques Teaching Recipient: Patient Teaching Methods: Demonstration, Discussion Response to Teaching: Verbalize Understanding, Return Demonstration OT Short Term Goals Short Term Goals Transfers (B,C,W/C) (FIM): 7 1=Demonstrate adherence to instructed precautions during ADL tasks. 2=Patient will verbalize/demonstrate understanding of assistive devices/ modifications for ADL. 3=Patient will improve strength/tolerance for activity to enable patient to perform ADL's. OT Improvement Rn Goals Halfway Goals Time Frame: Nov 20, 2016 Additional Goals: 1-Demonstrate ADL Tasks, 2-Verbalize Understanding, 3- ImproveStrength/Noah 1=Demonstrate adherence to instructed precautions during ADL tasks. 2=Patient will verbalize/demonstrate understanding of assistive devices/ modifications for ADL. 3=Patient will improve strength/tolerance for activity to enable patient to perform ADL's. All goals met. Pt. is able to complete ADL tasks with SBA/Mod I. Pt. will fully have SBA/supervision at home with spouse per her report. OT Education/Plan Problem List/Assessment Assessment: No Skilled OT Needs ID'd Discharge Recommendations Plan/Recommendations: Discharge/Goals Met Therapy D/C Recommendations: Home w/ Family Support Target Placement Home with spouse assist. Treatment Plan/Plan of Care Treatment,Training & Education: Yes Treatment Duration: Nov 20, 2016 Frequency: 1 time per month Estimated Hrs Per Day: .5 hour per day Agreement: Yes Rehab Potential: Good Time/GCodes Start Time: 14:35 Stop Time: 15:15 Total Time Billed (hr/min): 40 Billed Treatment Time 1, EVM x 15minutes, ADL x 25minutes TANNER GONZALEZ OT Nov 20, 2016 16:48
--- NOTE | 2016-11-20 17:09 | Diagnostic Imaging Report ---
PROCEDURE: CT angiography of the head and CT angiography of the neck with and without contrast. TECHNIQUE: Contiguous noncontrast images were obtained from the skull base through the vertex. After intravenous contrast administration, helical CT angiography of the neck was performed. Source data was reformatted into multiple MIP projections. Delayed post contrast acquisition was also obtained. INDICATION: Altered mental status. 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 FINDINGS: CTA neck: There is a right paratracheal area of fullness seen probably related to the unopacified azygos arch. The aortic arch is patent, and the origins of the great vessels are patent. The right common carotid and right subclavian and the brachiocephalic arteries are all patent. The internal carotid artery demonstrates no significant stenosis. The right vertebral artery is relatively small but appears patent. The left common carotid artery, the left internal and left external carotid arteries are all patent with no significant stenosis. The left vertebral artery appears patent. Soft tissues in the neck demonstrate symmetric parotid, submandibular, and thyroid glands with no definite abnormality. The larynx and the mucosal pharyngeal space appear intact. The paranasal sinuses appear clear. CTA head: The left vertebral artery is dominant, and the small right vertebral artery is patent. The basilar artery is patent. Both posterior cerebral arteries appear patent. In the anterior circulation, the internal carotid arteries demonstrate atherosclerotic plaque within the cavernous and supraclinoid segments without high-grade stenosis evident. The middle and anterior cerebral arteries appears patent. The major venous sinuses appear patent. The parenchymal phase demonstrates hypodensity in the right parietal region corresponding to the acute infarct earlier seen on MRI, although the hypodensity is slightly larger which may relate to background chronic ischemic findings in the white matter. There is no enhancing mass. IMPRESSION: CTA neck: There is no significant carotid artery stenosis. CTA head: 1. The major intracranial vessels are patent with no high-grade stenosis, occlusion, or aneurysm seen. 2. Right parietal periventricular white matter hypodensity corresponds to area of acute infarct seen on MRI with possible chronic component. Dictated by: Dictated on workstation # [id number]
[2016-11-20] MEDS: LATANOPROST 0.005% (XALATAN) OPHTH SOLN 2.5 ML OU SCH (20:24)
[2016-11-20] MEDS: PRAMIPEXOLE 0.5 MG TAB (MIRAPEX) PO SCH (20:25)
[2016-11-20] MEDS: clonazePAM 0.5 MG (KlonoPIN) TAB PO SCH (20:25)
[2016-11-20] MEDS: ATORVASTATIN 80 MG (LIPITOR) TABLET PO SCH (20:25)
[2016-11-20] MEDS: LOSARTAN 50 MG (COZAAR) TAB PO SCH (20:25)
[2016-11-21 04:02] VITALS: BP 153/63
--- NOTE | 2016-11-21 07:37 | Physician Query Clarification ---
PQ-Link Manifestation-Etiology Admission/Discharge Admission Date: Nov 20, 2016 at 09:52 Discharge Date: The medical record reflects the following clinical scenario: History/Risk Factors: Hypertension History of TIA Clinical Findings: Difficulty walking, unsteady gait,uncoordinated,muscle weakness, confusion, slurred speech,headache. Multiple small bilateral predominantly supratentorial, right greater than left, areas of small cortical infarct. Treatment: Plavix 75mg,Aspirin,325mg Question: Can you specify if the symptoms of difficulty walking, unsteadiness, muscle weakness, confusion, slurred speech and headache are due to/associated with TIA or CVA? Please clarify and document a response below PHYSICIAN RESPONSE Manifestation due to/assoic: Other,explanation/clinical finding (TIA, UTI) In responding to this query, please exercise your independent professional judgment. The purpose of this communication is to more accurately reflect the complexity of your patients condition. The fact that a question is asked does not imply that any particular answer is desired or expected. Thank you for your timely response to this clarification. Requestors name: Danuta Rodriguez [facility] Phone # [phone] [phone] THIS PHYSICIAN QUERY FORM IS A PERMANENT PART OF THE MEDICAL RECORD DANUTA RODRIGUEZ Nov 21, 2016 07:37 CHRISTINE LUNDY MD Nov 26, 2016 13:51
--- NOTE | 2016-11-21 07:48 | Physician Query Clarification ---
PQ-Intro New Diagnosis Admission/Discharge Admission Date: Nov 20, 2016 at 09:52 Discharge Date: The medical record reflects the following clinical scenario: History/Risk Factors: Weakness Altered mental status Clinical Findings: Urine clarity-Very Cloudy, UA-Urine protein 1+, Urine leukocyte Esterase 3+, Urine RBC 1+, Urine WBC 25-50 and Urine Squamous epith cells 25-50. Urine culture->100,000 Group B Strep Treatment: IV Cefriaxone Sodium/Sodium Chloride. Question: What condition best reflects the above clinical scenario? Please document below. 1. UTI due to Group B Strep. 2. Abnormal UA and positive urine culture only. 3. Other, with explanation of the clinical findings. 4. Clinically undetermined, no explanation for the clinical findings. PHYSICIAN RESPONSE What condition reflects above: 1 In responding to this query, please exercise your independent professional judgment. The purpose of this communication is to more accurately reflect the complexity of your patients condition. The fact that a question is asked does not imply that any particular answer is desired or expected. Thank you for your timely response to this clarification. Requestors name: Danuta Rodriguez [facility] Phone # ext [phone] or [phone] THIS PHYSICIAN QUERY FORM IS A PERMANENT PART OF THE MEDICAL RECORD DANUTA RODRIGUEZ Nov 21, 2016 07:48 CHRISTINE LUNDY MD Nov 26, 2016 13:51
[2016-11-21 07:51] VITALS: BP 138/60
[2016-11-21] MEDS: cefTRIAXone INJECTION 1,000 MG in NS (IVPB) 50 ML IV SCH (08:43)
[2016-11-21] MEDS: KCL 20 MEQ TAB (K-DUR) PO SCH (08:43)
[2016-11-21] MEDS: FLUoxetine HCL 20 MG (PROzac) CAP PO SCH (08:43)
[2016-11-21] MEDS: ASPIRIN E.C. 325 MG (ECOTRIN) TABLET PO SCH (08:43)
[2016-11-21] MEDS: TIMOLOL MALEATE 0.5% 5 ML (TIMOPTIC) BTL OU SCH (08:44)
[2016-11-21] MEDS ORDERED: CLOPIDOGREL 75 MG (PLAVIX) TABLET PO SCH (09:00)
[2016-11-21] MEDS ORDERED: CLOP75TA28 PO (10:11)
[2016-11-21] MEDS ORDERED: AMOX-358 PO (10:11)
[2016-11-21] MEDS ORDERED: ASPI-983 PO (10:11)
[2016-11-21] MEDS ORDERED: LACT1CAP87 PO (10:11)
--- NOTE | 2016-11-21 10:14 | Discharge Inst-Complex ---
PDI Med Rec & Follow Up Appt. New Medications: Amoxicillin/Potassium Clav (Augmentin 875-125 Tablet) 1 Each Tablet 1 EACH PO BID for 5 Days, #10 TAB Aspirin (Aspirin EC) 81 Mg Tablet.dr 81 MG PO DAILY for 30 Days, #30 TAB 11 Refills Lactobacillus Acidophilus (Acidophilus Lactobacilli) 1 Each Capsule 1 EACH PO BID for 7 Days, #14 CAP Clopidogrel Bisulfate (Clopidogrel) 75 Mg Tablet 75 MG PO DAILY for 30 Days, #30 TAB 6 Refills Continued Medications: Azathioprine (Imuran) 50 Mg Tablet 75 MG PO 1700, TAB TAKES 1 & 1/2 (50MG) TABLET Bimatoprost (Lumigan) 2.5 Ml Drops 1 DROP OU HS, DROPS Calcium Carbonate/Vitamin D3 (Calcium 600 + D Caplet) 1 Each Tablet 1 TAB PO HS, TAB Clonazepam (Clonazepam) 0.5 Mg Tablet 1 MG PO HS, TAB TAKES 2 (0.5MG) TABLETS Denosumab (Prolia) 60 Mg/1 Ml Disp.syrin 60 MG SQ EVERY 6 MONTHS, SYRINGE Diphenoxylate HCl/Atropine (Diphenoxylate-Atrop 2.5-0.025) 1 Each Tablet 1 TAB PO HS PRN for DIARRHEA, TAB Fluoxetine Hcl (Fluoxetine Hcl) 40 Mg Capsule 40 MG PO DAILY, CAP Folic Acid (Folic Acid Tab) 1 Mg Tab 1 MG PO 1200, TAB Loratadine (Alavert) 10 Mg Tab.rapdis 10 MG PO DAILY, TAB Losartan Potassium (Losartan Potassium) 100 Mg Tablet 100 MG PO HS, TAB Mesalamine (Lialda) 1.2 Gm Tablet. 1.2 GM PO HS, TAB [place]-3/Dha/Epa/Fish Oil (Fish Oil 1,400 mg Softgel) 1 Each Capsule.dr 1400 MG PO 1700, CAP Potassium Chloride (Klor-Con M20) 20 Meq Tab.er.prt 20 MEQ PO DAILY, TAB Pramipexole Di-HCl (Pramipexole Dihydrochloride) 0.5 Mg Tablet 0.5 MG PO HS, TAB Pravastatin Sodium (Pravastatin Sodium) 80 Mg Tablet 80 MG PO HS, TAB Spironolactone (Spironolactone) 25 Mg Tablet 25 MG PO DAILY, TAB Sucralfate (Sucralfate) 1 Gm Tablet 1 GM PO BID PRN for STOMACH UPSET, TAB Timolol Maleate (Timolol Maleate 0.5%) 5 Ml Drops 1 DROP OU BID, EA Prescription: Transmitted to Pharmacy Patient Instructions: [facility] APPT IN 2 WEEKS, [facility] WILL BE CALLING WITH AN APPT FOR DR. RM - NEUROLOGIST IN [place] Activity, Diet and PDI Resume Normal Activity: Yes Discharge Diet: Other Diet (RESUME HOME DIET) Drink 6-8 Glasses of Fluid/Day: Yes Driving Instructions: No Driving/Refer to Return to The Hospital For: ANY CONCERN FOR WORSENING SYMPTOMS, INCREASE IN CONFUSION, WORSENING WEAKNESS, ALTERED MENTAL STATUS, OR OTHER LIFETHREATENING CONCERNS Symptoms to Reoprt to : Fever Over 101 Degrees F, Pain/Pressure in Chest, Memory Changes Suddenly, Questions/Concerns, Shortness of Breath For Problems or Questions: Contact Your Physician, Go to Emergency Room CHRISTINE LUNDY MD Nov 21, 2016 10:13
--- NOTE | 2016-11-21 10:22 | Discharge Summary ---
Diagnosis/Chief Complaint Date of Admission Nov 20, 2016 at 09:52 Date of Discharge Discharge Date: Nov 21, 2016 Discharge Time: 1200 Admission Diagnosis Admission Diagnosis WEAKNESS CONFUSION HX OF TIA HYPERTENSION ANXIETY RESTLESS LEG SYNDROME Discharge Diagnosis PARIETAL STROKE WEAKNESS URINARY TRACT INFECTION CONFUSION HX OF TIA HYPERTENSION ANXIETY RESTLESS LEG SYNDROME Reason Hospital Visit PT REPORTS THAT SHE STARTED TO FEEL POORLY YESTERDAY. SHE REPORTS THAT SHE HAD A WEIRD SENSATION IN HER HEAD, FELT LIKE SHE HAD A VICE AROUND HER HEAD ALL DAY TODAY. SHE REPORTS A BAD NIGHT YESTERDAY - WITH SIGNIFICANTLY RESTLESS LEGS AND WOKE UP FEELING FUZZY HEADED AND WEAK. SHE REPORTS THAT SHE WAS NOT ABLE TO MOVE HER ARMS OR LEGS CORRECTLY AND COULD NOT STAND ON HER OWN. AT THIS TIME SHE IS FEELING BETTER, HER WEAKNESS IS IMPROVED, BUT SHE IS NOT YET BACK TO NORMAL. Discharge Summary Discharge Physical Examination Allergies: Coded Allergies: Sulfa (Sulfonamide Antibiotics) (Verified Allergy, Unknown, 05/16/05) latex (Verified Allergy, Unknown, 05/16/05) Vitals & I&Os Vital Signs Date Time Temp Pulse Resp B/P (MAP) Pulse Ox O2 Delivery O2 Flow Rate FiO2 11/21/16 07:51 97.3 64 18 138/60 98 Room Air General Appearance: Alert, Oriented X3, Cooperative, No Acute Distress HEENT: Atraumatic, PERRLA, Mucous Memb Moist/[place] Respiratory: Clear to Auscultation, Normal Air Movement Cardiovascular: Regular Rate Abdominal: Normal Bowel Sounds, Soft, No Tenderness Extremities: No Clubbing, No Cyanosis, No Edema, Normal Pulses, No Tenderness/ Swelling Skin: No Rashes, No Breakdown Neuro: Normal Gait, Normal Speech, Strength at 5/5 X4 Ext, Cranial Nerves 3-12 NL Psych/Mental Status: Mental Status NL, Mood NL Hospital Course PARIETAL STROKE WEAKNESS URINARY TRACT INFECTION CONFUSION HX OF TIA HYPERTENSION ANXIETY RESTLESS LEG SYNDROME ADMISSION NOTE: WEAKNESS AND CONFUSION - IMPROVED AFTER IV FLUIDS, CONTINUE WITH SUPPORTIVE CARE. - CHECK MRI OF BRAIN AND CAROTID ULTRASOUND - CT OF HEAD SHOWED THE FOLLOWING: IMPRESSION: 1. Interval development of a well-circumscribed area of decreased attenuation within the periventricular deep white matter of the posterior right frontal lobe. Findings are consistent with old infarct. 2. Interval development of punctate areas of old lacunar infarcts within the bilateral cerebellar hemispheres. In lieu of the above findings, this also raises the suspicion for possible history of thromboembolic event. 3. No evidence of intracranial mass or hemorrhage. Dictated on workstation # [id number] Interpreted by: RUSS RUIZ Electronically signed by: RUSS RUIZ 11/19/16 1707 HYPERTENSION - START HOME REGIMEN OF [place], HOLD SPIRONOLACTONE. MONITOR BLOOD PRESSURES SERIALLY. UTI - GROUP B STREP - AUGMENTIN OUTPATIENT X 5 MORE DAYS. ANXIETY - 1/2 DOSE OF CLONAZEPAM TO BE RESTARTED. RESTLESS LEG SYNDROME - REQUIP RESTARTED. DVT PROPHYLAXIS - START SCD'S GI PROPHYLAXIS - PEPCID TO BE STARTED. MRI OF BRAIN SHOWED THE FOLLOWING: IMPRESSION: Multiple small bilateral predominantly supratentorial, right greater than left, areas of small cortical infarct. On the right,these are predominately along the MCA/[employer] junction and are likely of a watershed basis. Correlative CT angio neck and head recommended as further evaluation. A few tiny left-sided cortical infarcts peripherally are noted,as well. No posterior fossa or brainstem ischemia. No hemorrhagic component or mass effect. Dictated by: Interpreted by: ROLANDO MORALES Electronically signed by: ROLANDO MORALES 11/20/16 1710 CAROTID ULTRASOUND:IMPRESSION: Estimated underlying stenosis is in the range of 0-40% bilaterally. REFERRAL TO DR. RM - NEUROLOGIST IN [place] - CONTINUE WITH PLAVIX AND ASPIRIN , STATIN, PHYSICAL THERAPY OUTPATIENT. DISCHARGE TO HOME TODAY Discharge Condition at discharge IMPROVING Instructions to patient/family Please see electonic discharge instructions given to patient. Discharge Medications Reviewed and agree with Discharge Medication list on patient's Discharge Instruction sheet Clinical Quality Measures DVT/VTE Risk/Contraindication: Risk Factor Score Per Nursin RFS Level Per Nursing on Admit: 2=Moderate CHRISTINE LUNDY MD Nov 21, 2016 10:22
== END 2016-11-21 11:20 | disposition home or self-care (01) | DRG 65 ==
LOC: EDUNIT# 11:18 → ER 11:21 → 4TH 13:15 → UNDOADMOB 13:15 → 4TH 14:10 → INTOOBSV 11-20 09:52 → OBSVTOIN 11-20 09:52 → UNDODISIN 11-21 11:20 → ENPENDDIS 11-21 12:00
PROVIDERS: ADMIT Family Medicine; ATTEND Family Medicine
DX: I63.511 Cerebral infarction due to unspecified occlusion or stenosis of right middle cerebral artery (principal); N39.0 Urinary tract infection, site not specified; B95.1 Streptococcus, group B, as the cause of diseases classified elsewhere; R26.81 Unsteadiness on feet; R26.89 Other abnormalities of gait and mobility; M62.81 Muscle weakness (generalized); R47.81 Slurred speech; R41.0 Disorientation, unspecified; I10 Essential (primary) hypertension; G25.81 Restless legs syndrome; K76.9 Liver disease, unspecified; H40.9 Unspecified glaucoma; K21.9 Gastro-esophageal reflux disease without esophagitis; M19.91 Primary osteoarthritis, unspecified site; R53.82 Chronic fatigue, unspecified; F41.9 Anxiety disorder, unspecified; Z86.73 Personal history of transient ischemic attack (TIA), and cerebral infarction without residual deficits
CPT/HCPCS: 36415; 70450; 70496; 70498; 70551; 71010; 80053; 81000; 82962; 84484; 85025; 85379; 85610; 85730; 87088; 93005; 93041; 93306; 93880; G0378

== ENCOUNTER 2017-01-07 09:56 | Outpatient (RCR) | payer MEDICARE ==
[~2017-01-07 09:56] MED LIST changes: +AMOX-358 PO; +ASPI-983 PO; +BIMA2.5D4 OU; +CLON0.5T3 PO; +CLOP75TA28 PO; +DENO60DI SQ; +DIPH1TAB25 PO; +LACT1CAP87 PO; +LORA10TA44 PO; +LOSA100T28 PO; +MESA1.2T2 PO; +OMEG-9 PO; +POTA20TA8 PO; +PRAM0.5T9 PO; +PRAV80TA2 PO; +SPIR25TA3 PO; +SUCR1TAB PO; +TIMO5DRO5 OU
== END 2017-01-10 | disposition home or self-care (01) ==
PROVIDERS: ATTEND Nurse Practitioner Family
DX: K21.9 Gastro-esophageal reflux disease without esophagitis; I69.991 Dysphagia following unspecified cerebrovascular disease

== ENCOUNTER 2017-05-24 09:01 | Inpatient (IN) | payer MEDICARE ==
[~2017-05-24] VITALS: Ht 157.5 cm; Wt 69.5 kg
[2017-05-24 09:20] LABS: BASOPHILS # (AUTO) 0.1 10^3/uL (0.0-0.1); BASOPHILS % (AUTO) 1 % (0-10); EOSINOPHILS % (AUTO) 0 % (0-10); HEMATOCRIT 43 % (35-52); HEMOGLOBIN 14.7 G/DL (11.5-16.0); LYMPHOCYTES # (AUTO) 1.5 X 10^3 (1.0-4.0); LYMPHOCYTES % (AUTO) 18 % (12-44); MEAN CORPUSCULAR HEMOGLOBIN 33 PG (25-34); MEAN CORPUSCULAR HGB CONC 34 G/DL (32-36); MEAN CORPUSCULAR VOLUME 95 FL (80-99); MONOCYTES # (AUTO) 0.9 X 10^3 (0.0-1.0); MONOCYTES % (AUTO) 10 % (0-12); NEUTROPHILS # (AUTO) 6.1 X 10^3 (1.8-7.8); NEUTROPHILS % (AUTO) 71 % (42-75); PLATELET COUNT 236 10^3/uL (130-400); RED BLOOD COUNT 4.49 10^6/uL (4.35-5.85); RED CELL DISTRIBUTION WIDTH 12.9 % (10.0-14.5); WHITE BLOOD COUNT 8.6 10^3/uL (4.3-11.0)
--- NOTE | 2017-05-24 09:21 | ED Neurological Problem ---
General Stated Complaint: POSSIBLE STROKE Source: patient, spouse Exam Limitations: clinical condition History of Present Illness Date Seen by Provider: May 24, 2017 Time Seen by Provider: 09:10 Initial Comments Patient presents to ER by primary conveyance with a chief complaint that last night her found her propped up against the wall after hearing a thud upstairs. She states she fell in her left side of her parietal scalp was hurting but she does not have a knot there. She doesn't member she had lost consciousness and does not member much or what she was doing prior to during or after the fall. She is complaining of some right side parietal scalp pain. She states she has a history of a TIA in the past. She is on aspirin and Plavix but no other blood thinners. She does not have any heart history although she has been put on a monitor by Dr. Andujar looking for atrial fibrillation. She's also been complaining of acid reflux the last day or so. She says she routinely takes Pepcid for this. She has no smoking or drinking history. She is prediabetic. Allergies and Home Medications Allergies Coded Allergies: Sulfa (Sulfonamide Antibiotics) (Verified Allergy, Unknown, 05/16/05) latex (Verified Allergy, Unknown, 05/16/05) Home Medications Amoxicillin/Potassium Clav 1 Each Tablet, 1 EACH PO BID for 5 Days, #10 Prescribed by: CHRISTINE LUNDY on 11/21/16 1011 Aspirin 81 Mg Tablet.dr, 81 MG PO DAILY for 30 Days, #30 Ref 11 Prescribed by: CHRISTINE LUNDY on 11/21/16 1011 Azathioprine 50 Mg Tablet, 75 MG PO 1700, (Reported) TAKES 1 & 1/2 (50MG) TABLET Bimatoprost 2.5 Ml Drops, 1 DROP OU HS, (Reported) Calcium Carbonate/Vitamin D3 1 Each Tablet, 1 TAB PO HS, (Reported) Clonazepam 0.5 Mg Tablet, 1 MG PO HS, (Reported) TAKES 2 (0.5MG) TABLETS Clopidogrel Bisulfate 75 Mg Tablet, 75 MG PO DAILY for 30 Days, #30 Ref 6 Prescribed by: CHRISTINE LUNDY on 11/21/16 1011 Denosumab 60 Mg/1 Ml Disp.syrin, 60 MG SQ EVERY 6 MONTHS, (Reported) Diphenoxylate HCl/Atropine 1 Each Tablet, 1 TAB PO HS PRN for DIARRHEA, ( Reported) Fluoxetine Hcl 40 Mg Capsule, 40 MG PO DAILY, (Reported) Folic Acid 1 Mg Tab, 1 MG PO 1200, (Reported) Lactobacillus Acidophilus 1 Each Capsule, 1 EACH PO BID for 7 Days, #14 Prescribed by: CHRISTINE LUNDY on 11/21/16 1011 Loratadine 10 Mg Tab.rapdis, 10 MG PO DAILY, (Reported) Losartan Potassium 100 Mg Tablet, 100 MG PO HS, (Reported) Mesalamine 1.2 Gm Tablet.dr, 1.2 GM PO HS, (Reported) [place]-3/Dha/Epa/Fish Oil 1 Each Capsule.dr, 1,400 MG PO 1700, (Reported) Potassium Chloride 20 Meq Tab.er.prt, 20 MEQ PO DAILY, (Reported) Pramipexole Di-HCl 0.5 Mg Tablet, 0.5 MG PO HS, (Reported) Pravastatin Sodium 80 Mg Tablet, 80 MG PO HS, (Reported) Spironolactone 25 Mg Tablet, 25 MG PO DAILY, (Reported) Sucralfate 1 Gm Tablet, 1 GM PO BID PRN for STOMACH UPSET, (Reported) Timolol Maleate 5 Ml Drops, 1 DROP OU BID, (Reported) Constitutional: No chills, No diaphoresis, No fever, No malaise Eyes: Denies Blindness, Denies Blurred Vision, Denies Pain, Denies Photophobia Ears, Nose, Mouth, Throat: denies ear pain, denies ear discharge Respiratory: No cough, No short of breath Cardiovascular: No chest pain, No edema, No palpitations Gastrointestinal: No abdominal pain, No constipation, No diarrhea, No nausea Genitourinary: No discharge, No dysuria Musculoskeletal: No back pain, No joint pain Skin: No pruritus, No rash Past Fokrpku-Ytvuke-Ohxqls Hx Patient Social History Alcohol Use: Denies Use Recreational Drug Use: No Smoking Status: Current Everyday Smoker 2nd Hand Smoke Exposure: No Recent Foreign Travel: No Contact w/Someone Who Travel: No Recent Hopitalizations: No (2005. strep, hysterectomy, lumpectomy, collapsed at work 15 years ago) Seasonal Allergies Seasonal Allergies: No Surgeries History of Surgeries: Yes Surgeries: Breast, Hysterectomy Respiratory History of Respiratory Disorde: No Currently Using CPAP: No Currently Using BIPAP: No Cardiovascular History of Cardiac Disorders: No Cardiac Disorders: Hypertension Neurological History of Neurological Disord: No Neurological Disorders: TIA Reproductive System Hx Reproductive Disorders: No Sexually Transmitted Disease: No Female Reproductive Disorders: Denies Genitourinary History of Genitourinary Disor: No Gastrointestinal History of Gastrointestinal Di: Yes Gastrointestinal Disorders: Colitis, Gastroesophageal Reflux, Liver Disease/ Jaundice, Hemorrhoids Musculoskeletal History of Musculoskeletal Dis: Yes Musculoskeletal Disorders: Arthritis Endocrine History of Endocrine Disorders: Yes (DIET CONTROLLED DM ) HEENT History of HEENT Disorders: Yes HEENT Disorders: Cataract, Glaucoma Loss of Vision: Denies Hearing Impairment: Denies Cancer History of Cancer: No Psychosocial History of Psychiatric Problem: Yes Behavioral Health Disorders: Anxiety Integumentary History of Skin or Integumenta: No Blood Transfusions History of Blood Disorders: No Adverse Reaction to a Blood Tr: No Family Medical History Significant Family History: Hypertension Physical Exam Vital Signs Vital Signs - First Documented 05/24/17 09:34 Temp 97.9 Pulse 62 Resp 22 B/P (MAP) 173/91 (118) Pulse Ox 97 Capillary Refill : General Appearance: WD/WN, no apparent distress HEENT: PERRL/EOMI, normal ENT inspection, TMs normal, pharynx normal Neck: non-tender, full range of motion, supple, normal inspection Respiratory: chest non-tender, lungs clear, normal breath sounds, no respiratory distress, no accessory muscle use Cardiovascular: normal peripheral pulses, regular rate, rhythm, systolic murmur Peripheral Pulses: 2+ Radial Pulses (R), 2+ Radial Pulses (L) Gastrointestinal: normal bowel sounds, non tender, soft Extremities: normal range of motion, non-tender, normal inspection, no pedal edema, no calf tenderness, normal capillary refill Neurologic/Psychiatric: alert, normal mood/affect, oriented x 3, other (right lower extremity 2 out of 5 strength and right upper extremity has some drift. She has little dysarthria difficulty getting out her words but no confusion, or other speech disorder.) Crainal Nerves: normal hearing, normal speech, PERRL Motor/Sensory: no sensory deficit Skin: normal color, warm/dry Stroke Onset of Symptoms Date of Onset of Symptoms: May 23, 2017 Time of Symptom Onset: 10:00 Onset of Symptoms: Yes Symptoms onset unknown: No NIH Stroke Scale Assessment Select: Initial Level of Consciousness: 0=Alert (0), Level of Consciousness- Questions: 0=Answers both month/age (0), LOC Commands: 0=Performs both tasks (0) , Gaze: Normal (0), Visual Tang: 0=No visual loss (0), Facial Movement ( Facial Paresis): 0=Normal symmetrical mnt (0), Motor Function-Arms Right: 1= Drift (1), Motor Function-Arms Left: 0=No drift (0), Motor Function-Legs Right: 2=Some effort/gravity (2), Motor Function-Legs Left: 0=No drift (0), Limb Ataxia : 0=Absent (0), Sensory: 0=Normal:no loss (0), Best Language: 0=No aphasia (0), Dysarthria: 1=Mild to moderate loss (1), Extinction & Inattention: 0=No abnormality (0), Total: 4 Stroke Thrombolytic Exclusion Age 18 or Over: Yes Acute intenal hemorrhage: No History of CVA: No Uncontrolled Coagulation Defec: No Intracranial Hemorrhage: No Severe Hypertension: No GI or Bleed: No Subarachnoid Hemorrhage: No Intracranial Neoplasm/Aneurysm: No Oral Anticoagulants: No Surgery or Trauma: No Puncture of Non-Compressible V: No Recent CPR: No Diabetic Hemorrhagic Retinopat: No Organ Biopsy: No Recent Obstetric Delivery: No Glucose: No Significant Hepatic Dysfunctio: No NIH Stoke Scale >22: No Bacterial Endocarditis: No Pericarditis: No Improving Symptoms: No Platelets: No TPA Contraindication: Yes IV - TPa Received IV - TPa Procedure Performed?: No Progress/Results/Core Measures Results/Orders Lab Results Laboratory Tests Test 05/24/17 09:14 05/24/17 11:41 Range/Units White Blood Count 8.6 4.3-11.0 10^3/uL Red Blood Count 4.49 4.35-5.85 10^6/uL Hemoglobin 14.7 11.5-16.0 G/DL Hematocrit 43 35-52 % Mean Corpuscular Volume 95 80-99 FL Mean Corpuscular Hemoglobin 33 25-34 PG Mean Corpuscular Hemoglobin Concent 34 32-36 G/DL Red Cell Distribution Width 12.9 10.0-14.5 % Platelet Count 236 130-400 10^3/uL Mean Platelet Volume 9.0 7.4-10.4 FL Neutrophils (%) (Auto) 71 42-75 % Lymphocytes (%) (Auto) 18 12-44 % Monocytes (%) (Auto) 10 0-12 % Eosinophils (%) (Auto) 0 0-10 % Basophils (%) (Auto) 1 0-10 % Neutrophils # (Auto) 6.1 1.8-7.8 X 10^3 Lymphocytes # (Auto) 1.5 1.0-4.0 X 10^3 Monocytes # (Auto) 0.9 0.0-1.0 X 10^3 Eosinophils # (Auto) 0.0 0.0-0.3 10^3/uL Basophils # (Auto) 0.1 0.0-0.1 10^3/uL Prothrombin Time 11.5 L 12.2-14.7 SEC INR Comment 0.8 0.8-1.4 Activated Partial Thromboplast Time 24 24-35 SEC D-Dimer 0.39 0.00-0.49 UG/ML Sodium Level 132 L 135-145 MMOL/L Potassium Level 5.6 H 3.6-5.0 MMOL/L Chloride Level 104 98-107 MMOL/L Carbon Dioxide Level 17 L 21-32 MMOL/L Anion Gap 11 5-14 MMOL/L Blood Urea Nitrogen 18 7-18 MG/DL Creatinine 1.11 0.60-1.30 MG/DL Estimat Glomerular Filtration Rate 49 BUN/Creatinine Ratio 16 Glucose Level 99 70-105 MG/DL Calcium Level 9.4 8.5-10.1 MG/DL Total Bilirubin 0.3 0.1-1.0 MG/DL Aspartate Amino Transf (AST/SGOT) 32 5-34 U/L Alanine Aminotransferase (ALT/SGPT) 23 0-55 U/L Alkaline Phosphatase 46 40-136 U/L Troponin I < 0.30 <0.30 NG/ML Total Protein 7.8 6.4-8.2 GM/DL Albumin 4.3 3.2-4.5 GM/DL Urine Color YELLOW Urine Clarity CLEAR Urine pH 6.5 5-9 Urine Specific [place] 1.005 L 1.016-1.022 Urine Protein NEGATIVE NEGATIVE Urine Glucose (UA) NEGATIVE NEGATIVE Urine Ketones NEGATIVE NEGATIVE Urine Nitrite NEGATIVE NEGATIVE Urine Bilirubin NEGATIVE NEGATIVE Urine Urobilinogen NORMAL NORMAL MG/DL Urine Leukocyte Esterase NEGATIVE NEGATIVE Urine RBC (Auto) NEGATIVE NEGATIVE Urine RBC NONE /HPF Urine WBC NONE /HPF Urine Squamous Epithelial Cells 10-25 H /HPF Urine Crystals NONE /LPF Urine Bacteria NEGATIVE /HPF Urine Casts NONE /LPF Urine Mucus NEGATIVE /LPF Urine Culture Indicated NO My Orders Orders - ZENAIDA NUR Cbc With Automated Diff (05/24/17:16) Protime With Inr (05/24/17 09:16) Partial Thromboplastin Time (05/24/17:16) Comprehensive Metabolic Panel (05/24/17:) Fibrin Degradation Products (05/24/17:) Troponin I (05/24/17:16) Ua Culture If Indicated (05/24/17:16) Chest 1 View, Ap/Pa Only (05/24/17:16) Ekg Tracing (05/24/17:16) Nothing By Mouth (05/24/17 Lunch) Accucheck Stat ONCE (05/24/17:16) Saline Lock/Iv-Start (05/24/17:16) Saline Lock/Iv-Start (05/24/17:16) Vital Signs - Stroke Q15M (05/24/17 09:16) Ct Head Wo-R/O Stroke (05/24/17:16) O2 (05/24/17:16) Intake & Output 06,14,22 (05/24/17:16) Monitor-Rhythm Ecg Trace Only (05/24/17:16) Dysphagia Screening Tool (05/24/17 09:16) Ct Angio Head/Neck (05/24/17 09:41) Iohexol Injection (Omnipaque 350 Mg/Ml 1 (05/24/17 10:00) Ns (Ivpb) (Sodium Chloride 0.9%) (05/24/17 10:00) Pharmacy Communication (Pharmacy Communi (05/24/17 09:46) Fentanyl Injection (Sublimaze Injection (05/24/17 10:00) Ns Iv 1000 Ml (Sodium Chloride 0.9%) (05/24/17 10:00) Medications Given in ED Current Medications Medications Dose Ordered Sig/Bety Route Start Time Stop Time Status Last Admin Dose Admin Fentanyl Citrate 50 mcg ONCE ONCE IVP 05/24/17 10:00 05/24/17 10:01 DC 05/24/17 10:56 50 MCG Iohexol 100 ml ONCE ONCE IV 05/24/17 10:00 05/24/17 10:01 DC 05/24/17 11:29 85 ML Sodium Chloride 250 ml ONCE ONCE IV 05/24/17 10:00 05/24/17 10:01 DC 05/24/17 11:29 80 ML Vital Signs/I&O Vital Sign - Last 12Hours 05/24/17 09:34 Temp 97.9 Pulse 62 Resp 22 B/P (MAP) 173/91 (118) Pulse Ox 97 Progress Note : Time: 09:37 Progress Note Fall, syncopal episode possible stroke versus TIA. She is outside the window for TPA. Initial CT scan is unremarkable. ECG Initial ECG Impression Date: May 24, 2017 Initial ECG Impression Time: 10:17 Initial ECG Rate: 62 Initial ECG Rhythm: Normal Sinus Initial ECG Intervals: Normal Initial ECG Impression: Normal Initial ECG Comparisson: Unchanged Comment No T-wave elevation or depression. Sinus rhythm Diagnostic Imaging Diagonstic Imaging: CT Plain Films/CT/US/NM/MRI: head Comments No acute intracranial hemorrhage, mass effect or tumor. [facility] [place] [place] NAME: MARINE SAMPSON [facility] REC#: [id number] PT STATUS: REG ER : 1945 PHYSICIAN: ZENAIDA NUR MD ADMIT DATE: 05/24/17/ER Draft Date of Exam:05/24/17 CT HEAD WO-R/O STROKE EXAM: CT HEAD WO-R/O STROKE INDICATION: Right leg weakness. Slow speech. COMPARISON: CTA head and neck 11/20/2016. 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 No CT evidence of an acute infarction. No intracranial hemorrhage, mass effect, hydrocephalus or extra-axial fluid collection. Osseous structures are intact. The visualized paranasal sinuses and mastoids are clear. IMPRESSION: No acute intracranial CT findings. Dictated on workstation # [id number] Dict: 05/24/17925 Trans: 05/24/17930 [id number] Interpreted by: ALEJO PLASENCIA MD Electronically signed by: Reviewed: Reviewed by Me Diagonstic Imaging: Xray Plain Films/CT/US/NM/MRI: chest (1v) Comments [facility] [place] [place] NAME: MARINE SAMPSON [facility] REC#: [id number] PT STATUS: REG ER : 1945 PHYSICIAN: ZENAIDA NUR MD ADMIT DATE: 05/24/17/ER Draft Date of Exam:05/24/17 CHEST 1 VIEW, AP/PA ONLY INDICATION: Stroke. Comparison is made with prior examination from 11/19/16. FINDINGS: The heart size, mediastinal configuration, and pulmonary vascularity are within normal limits. There is no pleural effusion, pneumothorax, or pneumonia. The osseous structures are unremarkable. IMPRESSION: No acute cardiopulmonary abnormality. Dictated on workstation # [id number] Dict: 05/24/1731 Trans: 05/24/17 0934 [facility] [id number] Interpreted by: MINNIE JADE MD Electronically signed by: Reviewed: Reviewed by Me Diagonstic Imaging: CT (angio) Plain Films/CT/US/NM/MRI: head (/neck) Comments NAME: MARINE SAMPSON [facility] REC#: [id number] PT STATUS: REG ER : 1945 PHYSICIAN: ZENAIDA NUR MD ADMIT DATE: 05/24/17/ER Draft Date of Exam:05/24/17 CT ANGIO HEAD/NECK PROCEDURE: CT angiography of the head and CT angiography of the neck with and without contrast. TECHNIQUE: Contiguous noncontrast images were obtained from the skull base through the vertex. After intravenous contrast administration, helical CT angiography of the neck was performed. Source data was reformatted into multiple MIP projections. Delayed post contrast acquisition was also obtained. INDICATION: Right leg weakness. Slurred speech. COMPARISON: CT head without contrast 05/24/2017. FINDINGS: A noncontrast head CT was not repeated. Again seen is chronic encephalomalacia in the posterior right frontal lobe. No abnormal intracranial enhancement. No hydrocephalus. No extra-axial fluid collections. Mild scattered atherosclerotic calcifications. Retropharyngeal course of the carotid arteries. Less than 50% narrowing of the cavernous ICAs bilaterally. The basilar, bilateral carotid, anterior cerebral, middle cerebral and posterior cerebral arteries demonstrate no high-grade narrowing, aneurysm or dissection. There is greater than 50% narrowing of the distal right vertebral artery at its confluence with the contralateral vertebral artery which has progressed since the prior exam. The superior, right anterior inferior and right posterior inferior cerebellar arteries are patent. The left posterior inferior and anterior inferior cerebellar arteries are not well seen, similar to the prior exam. The dural venous sinuses are patent. Moderate spondylotic changes in the cervical spine. The visualized paravertebral soft tissues are unremarkable. IMPRESSION: 1. High-grade narrowing of the distal right vertebral artery near its confluence with the left vertebral artery has progressed since the prior exam. The basilar remains widely patent. 2. Remainder stable. No other high-grade narrowing, aneurysm or dissection in the head and neck. 3. Although a noncontrast head CT was not repeated, there remains no acute intracranial CT findings on the contrast-enhanced images. Dictated on workstation # [id number] Dict: 05/24/17 1150 Trans: 05/24/17 1218 [place] [id number] Interpreted by: ALEJO PLASENCIA MD Electronically signed by: Reviewed: Reviewed by Me Consults Consults : Consults Notes [facility] neurologist called discussed and he agrees with not doing TPA because she is out of the window. He recommends inpatient workup for possible stroke. CTA head and neck. Departure Communication (Admissions) Time/Spoke to Admitting Phy: 12:24 Communication Discussed case lab imaging and findings with Dr. Kebede. He agrees that the findings on the CT angiogram do not correlate to today's symptoms. He will take care of the patient and tomorrow morning the primary care physician will take over the case and decide whether further workup besides the MRI labs and cardiac monitoring are necessary inpt. Impression Impression: Primary Impression: Transient cerebral ischemia Qualified Codes: G45.9 - Transient cerebral ischemic attack, unspecified Additional Impression: Acute right-sided weakness Disposition: ADMITTED INPATIENT Condition: Stable Admissions Decision to Admit Reason: Admit from ER (General) Decision to Admit/Date: May 24, 2017 Time/Decision to Admit Time: 12:35 Departure-Patient Inst. Referrals: CHRISTINE LUNDY MD (PCP/Family) Primary Care Physician Copy Copies To 1: CHRISTINE LUNDY MD, TITUS J May 24, 2017 09:21
[2017-05-24 09:29] LABS: INR 0.8 (0.8-1.4); PROTHROMBIN TIME PATIENT 11.5 SEC (12.2-14.7)
--- NOTE | 2017-05-24 09:31 | Diagnostic Imaging Report ---
EXAM: CT HEAD WO-R/O STROKE INDICATION: Right leg weakness. Slow speech. COMPARISON: CTA head and neck 11/20/2016. 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 No CT evidence of an acute infarction. No intracranial hemorrhage, mass effect, hydrocephalus or extra-axial fluid collection. Osseous structures are intact. The visualized paranasal sinuses and mastoids are clear. IMPRESSION: No acute intracranial CT findings. Dictated by: Dictated on workstation # [id number]
[2017-05-24 09:32] LABS: FIBRIN DEGRADATION PRODUCTS 0.39 UG/ML (0.00-0.49)
--- NOTE | 2017-05-24 09:34 | Diagnostic Imaging Report ---
INDICATION: Stroke. Comparison is made with prior examination from 11/19/16. FINDINGS: The heart size, mediastinal configuration, and pulmonary vascularity are within normal limits. There is no pleural effusion, pneumothorax, or pneumonia. The osseous structures are unremarkable. IMPRESSION: No acute cardiopulmonary abnormality. Dictated by: Dictated on workstation # [id number]
[2017-05-24 09:39] LABS: ALANINE AMINOTRANSFERASE 23 U/L (0-55); ALBUMIN 4.3 GM/DL (3.2-4.5); ALKALINE PHOSPHATASE 46 U/L (40-136); BILIRUBIN,TOTAL 0.3 MG/DL (0.1-1.0); BUN/CREATININE RATIO 16; CALCIUM 9.4 MG/DL (8.5-10.1); CARBON DIOXIDE 17 MMOL/L (21-32); CHLORIDE 104 MMOL/L (98-107); CREATININE SERUM 1.11 MG/DL (0.60-1.30); GFR ESTIMATED 49; GLUCOSE 99 MG/DL (70-105); SODIUM 132 MMOL/L (135-145); TOTAL PROTEIN 7.8 GM/DL (6.4-8.2)
[2017-05-24 09:50] LABS: POTASSIUM 5.6 MMOL/L (3.6-5.0)
[2017-05-24] MEDS ORDERED: NS IV 1000 ML 1,000 ML IV SCH (10:00)
[2017-05-24] MEDS ORDERED: fentaNYL INJECTION 100 MCG/2 ML AMP IVP ONE (10:00)
[2017-05-24] MEDS ORDERED: NS 250 ML (IVPB) BAG IV ONE (10:00)
[2017-05-24] MEDS ORDERED: IOHEXOL 350 MG/ML 100 ML (OMNIPAQUE 350) VIAL IV ONE (10:00)
[2017-05-24 11:56] LABS: BILIRUBIN,URINE NEGATIVE (NEGATIVE); CLARITY,URINE CLEAR; COLOR,URINE YELLOW; GLUCOSE, URINE (UA) NEGATIVE (NEGATIVE); KETONES,URINE NEGATIVE (NEGATIVE); LEUKOCYTE ESTERASE ,URINE NEGATIVE (NEGATIVE); NITRITE,URINE NEGATIVE (NEGATIVE); PH,URINE 6.5 (5-9); PROTEIN,URINE NEGATIVE (NEGATIVE); UROBILINOGEN,URINE NORMAL (NORMAL)
[2017-05-24 12:03] LABS: BACTERIA,URINE NEGATIVE /HPF
--- NOTE | 2017-05-24 12:18 | Diagnostic Imaging Report ---
PROCEDURE: CT angiography of the head and CT angiography of the neck with and without contrast. TECHNIQUE: Contiguous noncontrast images were obtained from the skull base through the vertex. After intravenous contrast administration, helical CT angiography of the neck was performed. Source data was reformatted into multiple MIP projections. Delayed post contrast acquisition was also obtained. INDICATION: Right leg weakness. Slurred speech. COMPARISON: CT head without contrast 05/24/2017. FINDINGS: A noncontrast head CT was not repeated. Again seen is chronic encephalomalacia in the posterior right frontal lobe. No abnormal intracranial enhancement. No hydrocephalus. No extra-axial fluid collections. Mild scattered atherosclerotic calcifications. Retropharyngeal course of the carotid arteries. Less than 50% narrowing of the cavernous ICAs bilaterally. The basilar, bilateral carotid, anterior cerebral, middle cerebral and posterior cerebral arteries demonstrate no high-grade narrowing, aneurysm or dissection. There is greater than 50% narrowing of the distal right vertebral artery at its confluence with the contralateral vertebral artery which has progressed since the prior exam. The superior, right anterior inferior and right posterior inferior cerebellar arteries are patent. The left posterior inferior and anterior inferior cerebellar arteries are not well seen, similar to the prior exam. The dural venous sinuses are patent. Moderate spondylotic changes in the cervical spine. The visualized paravertebral soft tissues are unremarkable. IMPRESSION: 1. High-grade narrowing of the distal right vertebral artery near its confluence with the left vertebral artery has progressed since the prior exam. The basilar remains widely patent. 2. Remainder stable. No other high-grade narrowing, aneurysm or dissection in the head and neck. 3. Although a noncontrast head CT was not repeated, there remains no acute intracranial CT findings on the contrast-enhanced images. Dictated by: Dictated on workstation # [id number]
[2017-05-24 14:38] VITALS: BP 173/91
[2017-05-24] MEDS ORDERED: ONDANSETRON 4 MG/2 ML (SDV) Z0FRAN IV PRN (15:45)
[2017-05-24] MEDS ORDERED: RECEIVED CONTRAST (Hold Metformin) IV SCH (15:45)
[2017-05-24] MEDS ORDERED: CATHETER FLUSH 10 ML SYR IV PRN (15:45)
[2017-05-24 17:14] VITALS: BP 140/64
[2017-05-24] MEDS ORDERED: FLUO40CA PO (17:21)
[2017-05-24] MEDS ORDERED: ASPI-983 PO (17:21)
[2017-05-24] MEDS ORDERED: CLOP75TA28 PO (17:21)
[2017-05-24] MEDS ORDERED: AZAT50TA PO (18:18)
[2017-05-24] MEDS ORDERED: FOLI1TAB24 PO (18:20)
[2017-05-24] MEDS ORDERED: FAMO-119 PO (18:48)
[2017-05-24 20:00] VITALS: BP 112/65
[2017-05-24] MEDS ORDERED: PATIENT MAY USE OWN MED,SINGLE MED PO SCH ×2 (20:30)
[2017-05-24] MEDS ORDERED: PRAMIPEXOLE 0.5 MG TAB (MIRAPEX) PO SCH (21:00)
[2017-05-24] MEDS ORDERED: LOSARTAN 100 MG (COZAAR) TABLET PO SCH (21:00)
[2017-05-24] MEDS: CATHETER FLUSH 10 ML SYR IV SCH (21:46)
[2017-05-25] VITALS (7 sets, daily range): BP systolic 124–153; BP diastolic 58–78
[2017-05-25 06:08] LABS: BASOPHILS % (AUTO) 0 % (0-10); EOSINOPHILS % (AUTO) 0 % (0-10); HEMATOCRIT 38 % (35-52); LYMPHOCYTES # (AUTO) 1.3 X 10^3 (1.0-4.0); LYMPHOCYTES % (AUTO) 17 % (12-44); MEAN CORPUSCULAR HEMOGLOBIN 33 PG (25-34); MEAN CORPUSCULAR HGB CONC 34 G/DL (32-36); MEAN CORPUSCULAR VOLUME 95 FL (80-99); MEAN PLATELET VOLUME 8.6 FL (7.4-10.4); MONOCYTES # (AUTO) 0.8 X 10^3 (0.0-1.0); MONOCYTES % (AUTO) 9 % (0-12); NEUTROPHILS # (AUTO) 5.9 X 10^3 (1.8-7.8); NEUTROPHILS % (AUTO) 73 % (42-75); PLATELET COUNT 188 10^3/uL (130-400); RED BLOOD COUNT 3.99 10^6/uL (4.35-5.85); RED CELL DISTRIBUTION WIDTH 12.8 % (10.0-14.5)
[2017-05-25] MEDS: CATHETER FLUSH 10 ML SYR IV SCH ×3 (06:10→21:15)
[2017-05-25 06:25] LABS: BUN/CREATININE RATIO 16; CALCIUM 8.7 MG/DL (8.5-10.1); CARBON DIOXIDE 18 MMOL/L (21-32); CHLORIDE 108 MMOL/L (98-107); CREATININE SERUM 0.87 MG/DL (0.60-1.30); GFR ESTIMATED > 60; GLUCOSE 97 MG/DL (70-105); POTASSIUM 4.2 MMOL/L (3.6-5.0); SODIUM 136 MMOL/L (135-145)
[2017-05-25] MEDS ORDERED: INFLUENZA TRIvalent 2017-2018 0.5 ML/45 MCG SYR IM ONE (07:45)
[2017-05-25] MEDS ORDERED: FLUoxetine HCL 20 MG (PROzac) CAP PO SCH (09:00)
[2017-05-25] MEDS ORDERED: CLOPIDOGREL 75 MG (PLAVIX) TABLET PO SCH (09:00)
--- NOTE | 2017-05-25 09:13 | History & Physicial ---
History of Present Illness History of Present Illness Reason for visit/HPI PT IS A 71 Y/O FEMALE WHO IS KNOWN TO ME FROM CLINIC. SHE PRESENTED TO THE HOSPITAL WITH SYMPTOMS OF RECURRENT STROKE. SHE WAS AT HOME, HER HEARD A LOUD NOISE AND FOUND HER AGAINST THE WALL WITH COMPLAINT OF WEAKNESS AND HER LEFT LEG NOT WORKING CORRECTLY. SHE HAD IMAGING WHICH SHOWED A CHANGE FROM HER CTA IN NOVEMBER OF 2016 - HER RIGHT DISTAL VERTEBRAL ARTERY HAS A HIGH GRADE STENOSIS. SHE WAS THUS ADMITTED FOR FURTHER WORK-UP AND THERAPY. Date of Admission May 24, 2017 at 12:30 Date Seen by Provider: May 25, 2017 Time Seen by Provider: 08:10 I consulted on this patient on 05/25/17 09:08 Attending Physician CHRISTINE ECHEVERRIA MD Admitting Physician Christine Echeverria MD Consult Allergies and Home Medications Allergies Coded Allergies: Sulfa (Sulfonamide Antibiotics) (Verified Allergy, Unknown, 05/16/05) latex (Verified Allergy, Unknown, 05/16/05) Home Medications Aspirin 81 Mg Tablet.dr, 81 MG PO DAILY, (Reported) Azathioprine 50 Mg Tablet, 75 MG PO DAILY, (Reported) TAKES 1 & 1/2 OF A (50 MG) TABLET Bimatoprost 2.5 Ml Drops, 1 DROP OU HS, (Reported) Clonazepam 0.5 Mg Tablet, 1 MG PO HS, (Reported) TAKES 2 (0.5MG) TABLETS Clopidogrel Bisulfate 75 Mg Tablet, 75 MG PO DAILY, (Reported) Denosumab 60 Mg/1 Ml Disp.syrin, 60 MG SQ EVERY 6 MONTHS, (Reported) Diphenoxylate HCl/Atropine 1 Each Tablet, 1 TAB PO HS PRN for DIARRHEA, ( Reported) Famotidine 20 Mg Tablet, 20 MG PO HS PRN for HEARTBURN, (Reported) Fluoxetine HCl 40 Mg Capsule, 40 MG PO DAILY, (Reported) Folic Acid 1 Mg Tablet, 1 MG PO 1200, (Reported) Losartan Potassium 100 Mg Tablet, 100 MG PO HS, (Reported) Mesalamine 1.2 Gm Tablet.dr, 1.2 GM PO HS, (Reported) [place]-3/Dha/Epa/Fish Oil 1 Each Capsule.dr, 1,400 MG PO 1700, (Reported) Pramipexole Di-HCl 0.5 Mg Tablet, 0.5 MG PO HS, (Reported) Pravastatin Sodium 80 Mg Tablet, 80 MG PO HS, (Reported) Spironolactone 25 Mg Tablet, 25 MG PO DAILY, (Reported) LAST FILLED 02/08/17 #90 Timolol Maleate 5 Ml Drops, 1 DROP OU BID, (Reported) Past Agmdjtm-Rtgfbk-Mawpet Hx Patient Social History Marrital Status: Employed/Student: retired Alcohol Use: Denies Use Recreational Drug Use: No Smoking Status: Never a Smoker 2nd Hand Smoke Exposure: No Physical Abuse Screen: No Sexual Abuse: No Recent Foreign Travel: No Contact w/other who traveled: No Recent Hopitalizations: No (2005. strep, hysterectomy, lumpectomy, collapsed at work 15 years ago) Recent Infectious Disease Expo: No Immunizations Up To Date Tetanus Booster (TDap): Unknown Date of Pneumonia Vaccine: Jan 11, 2017 Seasonal Allergies Seasonal Allergies: No Surgeries Yes Breast, Hysterectomy, Lumpectomy Respiratory No Currently Using CPAP: No Currently Using BIPAP: No Cardiovascular Yes Atrial Fibrillation, Hypertension Neurological Yes (chronic fatigue syndrome) TIA Reproductive System Hx Reproductive Disorders: No Sexually Transmitted Disease: No Female Reproductive Disorders: Denies Genitourinary No Gastrointestinal Yes Colitis, Gastroesophageal Reflux, Liver Disease/Jaundice, Hemorrhoids Musculoskeletal Yes Arthritis Endocrine History of Endocrine Disorders: Yes (DIET CONTROLLED DM ) Endocrine Disorders: Lupus HEENT History of HEENT Disorders: Yes HEENT Disorders: Cataract, Glaucoma Loss of Vision: Denies Hearing Impairment: Denies Cancer No Psychosocial History of Psychiatric Problem: Yes Behavioral Health Disorders: Anxiety Integumentary History of Skin or Integumenta: No Blood Transfusions History of Blood Disorders: No Adverse Reaction to a Blood Tr: No Reviewed Nursing Assessment Reviewed/Agree w Nursing PMH: Yes Family Medical History Significant Family History: Hypertension Constitutional: No chills, No fever, malaise, weakness EENTM: No hearing loss, No vision loss, No throat pain Respiratory: No cough, No dyspnea on exertion, No short of breath, No wheezing Cardiovascular: No chest pain, No edema, No palpitations Gastrointestinal: No abdominal pain, No nausea, No vomiting Genitourinary: No decreased output, No nocturia Musculoskeletal: No gout, No joint pain, muscle weakness (LEFT LEG) Psychiatric/Neurological: Denies Anxiety, Denies Depressed, Denies Numbness, Weakness (LEFT LEG AND HAND) All Other Systems Reviewed Negative Unless Noted: Yes Physical Exam Vital Signs Vital Signs - First Documented 05/24/17 05/24/17 09:34 14:30 Temp 97.9 Pulse 62 Resp 22 B/P (MAP) 173/91 (118) Pulse Ox 97 O2 Delivery Room Air Capillary Refill : Less Than 3 Seconds General Appearance: No Apparent Distress, WD/WN Eyes: Bilateral Eye Normal Inspection, Bilateral Eye PERRL, Bilateral Eye EOMI HEENT: PERRL/EOMI, Pharynx Normal Neck: Full Range of Motion, Supple Respiratory: Chest Non Tender, Lungs Clear, Normal Breath Sounds, No Accessory Muscle Use Cardiovascular: Regular Rate, Rhythm, No Edema, Normal Peripheral Pulses Gastrointestinal: Normal Bowel Sounds, Soft Rectal: Deferred Back: Normal Inspection Extremity: Normal Capillary Refill, Non Tender, No Pedal Edema Neurologic/Psychiatric: Alert, Oriented x3, Normal Mood/Affect, Motor Weakness (LEFT LEG WEAKNESS,LEFT HAND WEAKNESS) Lymphatic: No Adenopathy Assessment/Plan Assessment and Plan RIGHT VERTEBRAL ARTERY STENOSIS TIA HYPERTENSION GENERALIZED WEAKNESS HYPERLIPIDEMIA RIGHT VERTEBRAL ARTERY STENOSIS - PT'S CTA SHOWED RIGHT VERTEBRAL ARTERY STENOSIS - MRI PENDING, WILL NEED TO REFER TO NEUROLOGIST AT ON DISCHARGE, CONTINUE WITH PLAVIX AND ASPIRIN AND CHOLESTEROL CONTROL. TIA HYPERTENSION - RESUME HOME MEDICATIONS. GENERALIZED WEAKNESS - START PHYSICAL THERAPY HYPERLIPIDEMIA - RESUME HOME MEDICATIONS Problems: Admission Diagnosis RIGHT VERTEBRAL ARTERY STENOSIS TIA HYPERTENSION GENERALIZED WEAKNESS HYPERLIPIDEMIA Clinical Quality Measures DVT/VTE Risk/Contraindication: Risk Factor Score Per Nursin RFS Level Per Nursing on Admit: 2=Moderate Stroke: Date of last known well: May 23, 2017 Time of last known well: 10:00 Symptoms onset unknown: No CHRISTINE ECHEVERRIA MD May 25, 2017 09:13
[2017-05-25] MEDS ORDERED: FAMOTIDINE 20 MG (PEPCID) TABLET PO PRN (09:15)
[2017-05-25] MEDS ORDERED: DIPHENOXYLATE/ATROPINE 2.5MG/0.025MG (LOMOTIL) TAB PO PRN (10:13)
[2017-05-25] MEDS ORDERED: GADOBUTROL 7.5 MMOL/7.5 ML (GADAVIST) VIAL IV ONE (10:45)
[2017-05-25] MEDS: CLOPIDOGREL 75 MG (PLAVIX) TABLET PO SCH (10:48)
[2017-05-25] MEDS: azaTHIOprine (IMURAN) 50 MG TAB PO SCH (10:48)
[2017-05-25] MEDS: SPIRONOLACTONE 25 MG (ALDACTONE) TAB PO SCH (10:48)
[2017-05-25] MEDS: ASPIRIN 81 MG CHEW (CHILDREN'S ASA) PO SCH (10:48)
[2017-05-25] MEDS: FOLIC ACID 1 MG TAB PO SCH (10:48)
[2017-05-25] MEDS: FLUoxetine HCL 20 MG (PROzac) CAP PO SCH (10:50)
[2017-05-25] MEDS: TIMOLOL MALEATE 0.5% 5 ML (TIMOPTIC) BTL OU SCH ×2 (10:51→21:14)
--- NOTE | 2017-05-25 11:18 | Physical Therapy Evaluation ---
PT Evaluation-General Medical Diagnosis Admission Date May 24, 2017 at 12:30 Medical Diagnosis: TIA Onset Date: May 24, 2017 Therapy Diagnosis Therapy Diagnosis: generalized weakness/debility Height/Weight Height (Feet): 5 Height (Inches): 2.00 Weight (Pounds): 153 Weight (Ounces): 3.0 Precautions Precautions/Isolations: Fall Prevention Weight Bear Status Right Lower Extremity: Right Full Weight Bearing Left Lower Extremity: Left Full Weight Bearing Referral Physician: Delio Reason for Referral: Evaluation/Treatment Medical History Pertinent Medical History: Arthritis, GERD, HTN Additional Medical History TIA November 2016 Current History ED via spouse secondary to spouse found patient leaning against the wall after hearing a "thud". Slow speech Reviewed History: Yes Social History Home: Single Level Current Living Status: Spouse Prior/[facility] Prior Level of Function Functional [place] Measure 0=Not Assessed/NA 4=Minimal Assistance 1=Total Assistance 5=Supervision or Setup 2=Maximal Assistance 6=Modified [place] 3=Moderate Assistance 7=Complete [place] Bed Mobility: 7 Transfers (B,C,W/C) (FIM): 6 Gait: 6 patient uses FWW or cane PRN PT Evaluation-Current Subjective Patient agrees to PT. No c/o. Pain Numeric Pain Scale: 0-No Pain Location: No Pain Reported Objective Patient Orientation: Normal For Age Problem Solving: Fair ROM/Strength ROM Lower Extremities bilateral LE WNL Strength Lower Extremities right knee flexion/extension 4/5; hip flexion 4/5; DF/PF 4/5; abd/add 4/5 left knee flexion/extension 4/5; hip flexion 4/5; DF/PF 4/5; abd/add 4/5 Integumentary/Posture Integumentary refer to nursing notes Bowel Incontinence: No Bladder Incontinence: No Posture WNL Neuromuscular (Tone, Coordination, Reflexes) Grossly intact with tone and reflexes, Patient is inconsistent with coordination with demonstration of reciprocal pattern with good foot clearance and then a shuffle gait sequence. Sensory Vision: Wears Glasses Hearing: Functional Sensation Right Lower Extremit: Intact Sensation Left Lower Extremity: Intact Transfers Functional [place] Measure 0=Not Assessed/NA 4=Minimal Assistance 1=Total Assistance 5=Supervision or Setup 2=Maximal Assistance 6=Modified [place] 3=Moderate Assistance 7=Complete [place] Transfers (B, C, W/C) (FIM): 6 Scootin Rollin Supine to/from Sit: 6 Sit to/from Stand: 6 Gait Mode of Locomotion: Walk Anticipated Mode of Locomotion: Walk Gait (FIM): 6 Distance (FIM): 3=150 ft Distance: 275' Gait Level of Assist: 6 Gait Persons Needed: 1 Gait Assistive Device: FWW Comments/Gait Description very, very slow, reciprocal pattern/inconsistent shuffle gait to bilateral foot clearance no LOB or unsteadiness Balance Sitting Static: Normal Sitting Dynamic: Normal Standing Static: Normal Standing Dynamic: Normal Assessment/Needs 71 y.o. female, will be seen short term by skilled PT to address functional strength and mobility to ensure safe return to home. Patient findings are inconsistent in MMT, gait training, etc. Rehab Potential: Good PT Prison Goals Prison Goals PT Felt Strip Finisher Goals Time Frame: Jun 01, 2017 Transfers (B,C,W/C) (FIM): 6 Gait (FIM): 6 Gait distance (FIM): 3=150 ft Gait Level of Assist: 6 Gait Assistive Device: FWW Stairs (FIM): 5 # of Steps: 12 Stairs Level Of Assist: 5 PT Plan Treatment/Plan Treatment Plan: Continue Plan of Care Treatment Plan: Education, Functional Activity Noah, Functional Strength, Gait , Safety, Therapeutic Exercise, Transfers Treatment Duration: Jun 01, 2017 Frequency: 6 times per week Estimated Hrs Per Day: .25 hour per day Patient and/or Family Agrees t: Yes Safety Risks/Education Patient Education: Gait Training Teaching Recipient: Patient Teaching Methods: Demonstration, Discussion Response to Teaching: Return Demonstration, Reinforcement Needed Discharge Recommendations Therapy D/C Recommendations: Home w/ Family Support Time/GCodes Time In: 950 Time Out: 1005 Total Billed Treatment Time: 15 Total Billed Treatment 1 visit [facility] 15 min WILLIAMS LOPEZ PT May 25, 2017 11:18
--- NOTE | 2017-05-25 11:29 | Diagnostic Imaging Report ---
CLINICAL INDICATION: Patient has had right leg weakness x1 day. Patient has history of stroke in 11/2016. EXAM: MRI of the brain performed without and with 10 cc of Gadavist IV contrast. Sequences include axial DWI, ADC map, coronal gradient echo, axial T2, axial FLAIR, axial T1, axial T1 post IV contrast, coronal T1 fat-sat post IV contrast, and sagittal T1 post IV contrast. COMPARISON: None. FINDINGS: There is interval development of a roughly 2.1 cm x 0.5 cm area of diffusion restriction and mild high T2 signal involving the parasagittal posterior left frontal lobe region. There are no other areas of acute cerebral infarct seen. There is interval evolution of the previously seen patchy and scattered areas of acute cerebral infarct involving the posterior right cerebral hemisphere and small scattered areas involving the high left posterior cerebral hemisphere with associated residual high T2 signal and chronic infarct changes. There is an area of patchy increased DWI signal in the posterior right frontal lobe valentino radiata region which has normalized ADC map and no IV contrast enhancement. This area is located in the previous area of acute cerebral infarct and an area of subacute infarct cannot be completely excluded. There are focal and patchy areas of high T2 signal white matter changes seen within both cerebral hemispheres and bilateral cerebellum with evolution of the previously seen areas of acute cerebral infarct, as described above. There is no abnormal IV contrast enhancement seen on this exam. There is no intracranial hemorrhage, brain herniation, or hydrocephalus. The brain parenchymal volume appears appropriate for patient's age. The [place] vascular structures show no gross abnormality as visualized. Basal cisterns are unremarkable. Empty sella turcica is again seen. The extracranial soft tissue, skull, and orbits are unremarkable. Paranasal sinuses and temporal bone structures show no significant abnormality. IMPRESSION: 1: Interval development of a small area of acute cerebral infarct involving the posterior left frontal lobe parasagittal region. 2: There is a small area of possible subacute infarct involving the posterior right frontal lobe valentino radiata region, which is located in the area of previous acute cerebral infarct. 3: Interval evolution and now chronic ischemic changes involving the previously seen scattered and patchy areas of acute cerebral infarct involving the bilateral posterior cerebral hemispheres (right side much more than the left). 4: Chronic small vessel ischemic disease. Results of this report were discussed with Dr. Ray Kebede via the telephone on 05/25/2017 at 1120 hours. Dictated by: Dictated on workstation # [id number]
[2017-05-25] MEDS: OMEGA 3 (FISH OIL) 1000 MG CAP PO SCH (16:04)
--- NOTE | 2017-05-25 16:36 | Occupational Therapy Eval ---
OT Evaluation-General/PLF Medical Diagnosis Admission Date May 24, 2017 at 12:30 Medical Diagnosis: TIA Onset Date: May 24, 2017 Therapy Diagnosis Therapy Diagnosis: Weakness Height/Weight Height (Feet): 5 Height (Inches): 2.00 Weight (Pounds): 153 Weight (Ounces): 3.0 Precautions Precautions/Isolations: Fall Prevention, Standard Precautions Safety Interventions: Bed Exit Alarm Referral Physician: Delio Referral Reason: Activity Tolerance, Self Care, Evaluation/Treatment, Strengthening/ROM Medical History Pertinent Medical History: Arthritis, GERD, HTN Additional Medical History TIA, hysterectomy Current History Pt. fell at home. Brought to ER. Ruling out TIA vs. CVA with testing. Reviewed History: Yes Social History Home: Single Level Current Living Status: Spouse Entry Into Home: Level Entry Steps Inside Home: 14 (To second floor but doesn't use second floor.) ADL-Prior Level of Function ADL PLOF Comments Pt. states that she doesn't drive but was independent with ADLs. DME/Equipment: Tub/Shower DME/Equipment Comments Pt. has a walker, cane. States that she uses both. Drive Self: No OT Current Status Subjective Pt. states that she doesn't feel well, but can't articulate what hurts. Appearance Pt. in bed. Agrees to work with OT. Mental Status/Objective Patient Orientation: Unable to Assess Current Hand Dominance: Right Upper Extremity ROM Pt. demonstrates approximately 60 degrees shoulder flexion for OT in right shoulder. Full ROM noted in left shoulder. Upper Extremity Strength When pt. is asked to squeeze OT's hand with right hand, she can barely squeeze it. Left hand WFL. ADL-Treatment Functional [place] Measure 0=Not Assessed/NA 4=Minimal Assistance 1=Total Assistance 5=Supervision or Setup 2=Maximal Assistance 6=Modified [place] 3=Moderate Assistance 7=Complete IndependenceIRFPAI Quality Coding Scale 6 Independent with activity with or without an assistive device 5 Patient requires set up or clean up by helper. Patient completes activity by themselves 4 Supervision or touching assist (CGA). [place] provide cues , steadying assist 3 The helper provides less than half the effort to complete the activity 2 The helper provides more than half the effort to complete the activity 1 Dependent. The helper does all the effort to complete an activity 7 Patient refused to complete or attempt activity 9 The patient did not perform the activity before the current illness or injury 88 Not attempted due to Medical conditions or safety concerns Bathing (FIM): 4 (CGA in stance to spongebathe all parts.) Upper Body Dressing (FIM): 5 (SBA to doff shirt. No street clothing available so pt. dons hospital gown.) Lower Body Dressing (FIM): 4 (CGA in stance to pull down pants. Please see note.) Transfers (B, C, W/C) (FIM): 4 (CGA for sit-stand.) Other Treatments Pt. states that she remembers OT from last time. States, "you threw me in the shower with my clothes on and we had a good time!" OT brought up previous note and let pt. know how good she did last time. That she did shower with OT assist , but that she didn't need OT. Pt. laughs and says, "you are probably right." Pt. is somewhat inconsistent throughout treatment. Pt. can barely move right UE or demonstrate adequate strength with testing. However, demonstrates little difficulty to hold washcloth, wash all parts, and reach for items on table with right UE. Pt. asks OT to do things such as remove pants and socks. With prompting however, pt. is able to do this on her own. Pt. tells OT story about a nurse tech that had to be told to pull down her pants when she was toileting. However, during evaluation, it is noted that pt. has no trouble with this. Talked with nursing and PT after evaluation. PT had inconsistency as well. All needs were met in room and pt. comfortable. Will continue to assess pt. while she is in hospital. Education OT Patient Education: Correct positioning, Modified ADL techniques, Progress toward Goal/Update tx plan, Purpose of tx/functional activities, Reviewed precautions, Rehab process, Transfer techniques Teaching Recipient: Patient Teaching Methods: Demonstration, Discussion Response to Teaching: Verbalize Understanding, Return Demonstration OT Short Term Goals Short Term Goals 1=Demonstrate adherence to instructed precautions during ADL tasks. 2=Patient will verbalize/demonstrate understanding of assistive devices/ modifications for ADL. 3=Patient will improve strength/tolerance for activity to enable patient to perform ADL's. OT Lead Pharmacy Technician Goals Lead Pharmacy Technician Goals Time Frame: Jun 01, 2017 Eating (FIM): 6 Grooming(FIM): 6 Bathing(FIM): 5 Upper Body Dressing(FIM): 5 Lower Body Dressing(FIM): 5 Toileting(FIM): 6 Transfers (B,C,W/C) (FIM): 6 Toilet/Commode Transfer(FIM): 6 Shower Transfer(FIM): 5 Additional Goals: 1-Demonstrate ADL Tasks, 2-Verbalize Understanding, 3- ImproveStrength/Noah 1=Demonstrate adherence to instructed precautions during ADL tasks. 2=Patient will verbalize/demonstrate understanding of assistive devices/ modifications for ADL. 3=Patient will improve strength/tolerance for activity to enable patient to perform ADL's. OT Education/Plan Problem List/Assessment Assessment: Decreased Activ Tolerance, Decreased UE Strength, Dependent Transfers, Impaired Bed Mobility, Impaired Cognition, Impaired Coordination, Impaired Funct Balance, Impaired I ADL's, Impaired Self-Care Skills, Restricted Funct UE ROM Discharge Recommendations Plan/Recommendations: Continue POC Therapy D/C Recommendations: Home w/ Family Support Equpiment Recommendations-D/C: Extended Bath Bench Barriers to Progress Cognition and inconsistency with her own abilities. Target Placement Home with spouse. Treatment Plan/Plan of Care Treatment,Training & Education: Yes Patient would benefit from OT for education, treatment and training to promote independence in ADL's, mobility, safety and/or upper extremity function for ADL' s. Plan of Care: ADL Retraining, Functional Mobility, UE Funct Exercise/Act Treatment Duration: Jun 01, 2017 Frequency: 5 times per week Estimated Hrs Per Day: .25 hour per day Agreement: Yes Rehab Potential: Fair Time/GCodes Start Time: 11:30 Stop Time: 12:00 Total Time Billed (hr/min): 30 Billed Treatment Time 1, EVM x 15minutes, ADL x 15minutes TANNER GONZALEZ OT May 25, 2017 16:36
[2017-05-25] MEDS ORDERED: MESALAMINE 1.2 GM PO SCH (21:00)
[2017-05-25] MEDS: LOSARTAN 100 MG (COZAAR) TABLET PO SCH (21:14)
[2017-05-25] MEDS: clonazePAM 1 MG (KlonoPIN) TAB PO SCH (21:14)
[2017-05-25] MEDS: PRAMIPEXOLE 0.5 MG TAB (MIRAPEX) PO SCH (21:14)
[2017-05-25] MEDS: ATORVASTATIN 20 MG (LIPITOR) TABLET PO SCH (21:14)
[2017-05-25] MEDS: LATANOPROST 0.005% (XALATAN) OPHTH SOLN 2.5 ML OU SCH (21:14)
[2017-05-26 04:24] VITALS: BP 120/71
[2017-05-26] MEDS: CATHETER FLUSH 10 ML SYR IV SCH ×3 (06:32→22:01)
[2017-05-26 08:00] VITALS: BP 145/65
[2017-05-26] MEDS: SPIRONOLACTONE 25 MG (ALDACTONE) TAB PO SCH (08:48)
[2017-05-26] MEDS: CLOPIDOGREL 75 MG (PLAVIX) TABLET PO SCH (08:48)
[2017-05-26] MEDS: ASPIRIN 81 MG CHEW (CHILDREN'S ASA) PO SCH (08:48)
[2017-05-26] MEDS: azaTHIOprine (IMURAN) 50 MG TAB PO SCH (08:48)
[2017-05-26] MEDS: TIMOLOL MALEATE 0.5% 5 ML (TIMOPTIC) BTL OU SCH ×2 (08:49→20:40)
[2017-05-26] MEDS: FLUoxetine HCL 20 MG (PROzac) CAP PO SCH (08:49)
--- NOTE | 2017-05-26 09:11 | Progress Note (SOAP) ---
Subjective Date Seen by Provider: May 26, 2017 Time Seen by Provider: 08:46 Subjective/Events-last exam PT IS A 71 Y/O FEMALE WHO IS KNOWN TO ME FROM CLINIC. SHE STATES THAT SHE CONTINUES TO HAVE WEAKNESS OF HER LEFT AND RIGHT LOWER LEGS - LEFT GREATER THAN RIGHT. SHE DENIES CHEST PAIN, SHORTNESS OF BREATH, DIZZINESS, BUT DOES HAVE THE PERSISTENT WEAKNESS. SHE REPORTS THAT SHE THINKS THAT SHE HAD THE STROKE AFTER SHE REACHED ACROSS HER BODY WITH HER RIGHT ARM TO PUT SOMETHING UP IN THE CABINET AND SHE TURNED HER HEAD TO THE RIGHT LOOKING OVER HER RIGHT SHOULDER CAUSING A "KINK" IN HER NECK AND THEN SHE REPORTS THAT SHE BLINKED HER EYES AND WAS "DOWN" ON THE GROUND. Review of Systems General: Fatigue HEENT: No Head Aches, No Visual Changes Pulmonary: No Dyspnea, No Cough Cardiovascular: No: Chest Pain Gastrointestinal: No: Nausea, Abdominal Pain Musculoskeletal: No: neck pain Neurological: Weakness (LOWER LEGS AND UPPER EXTREMITIES - LEFT GREATER THAN RIGHT) Objective Exam Vital Signs Date Time Temp Pulse Resp B/P (MAP) Pulse Ox O2 Delivery O2 Flow Rate FiO2 05/26/17 07:00 54 05/26/17 04:24 96.9 57 18 120/71 (87) 97 Room Air 05/26/17 01:00 56 05/25/17 23:14 97.7 63 20 124/58 (80) 97 Room Air 05/25/17 20:43 97.7 66 18 126/58 (80) 98 Room Air 05/25/17 19:00 75 05/25/17 16:00 97.7 65 20 130/60 (83) 98 Room Air 05/25/17 13:00 66 05/25/17 12:30 98.7 68 20 148/78 (101) 98 Room Air I & O 05/26/17 07:00 Intake Total 1480 ml Output Total 1150 ml Balance 330 ml Capillary Refill : Less Than 3 SecondsLess Than 3 Seconds General Appearance: No Apparent Distress, WD/WN HEENT: PERRL/EOMI Respiratory: Chest Non Tender, Lungs Clear, Normal Breath Sounds Cardiovascular: Regular Rate, Rhythm Gastrointestinal: normal bowel sounds, non tender, soft Extremity: Normal Capillary Refill Neurologic/Psychiatric: Alert, Oriented x3, No Motor/Sensory Deficits, Normal Mood/Affect Skin: Warm/Dry Assessment/Plan Assessment/Plan Assess & Plan/Chief Complaint RIGHT VERTEBRAL ARTERY STENOSIS STROKE HYPERTENSION GENERALIZED WEAKNESS HYPERLIPIDEMIA RIGHT VERTEBRAL ARTERY STENOSIS - PT'S CTA SHOWED RIGHT VERTEBRAL ARTERY STENOSIS - MRI PENDING, WILL NEED TO REFER TO NEUROLOGIST AT ON DISCHARGE, CONTINUE WITH PLAVIX AND ASPIRIN AND CHOLESTEROL CONTROL. STROKE - MRI REPORT FOLLOWS:IMPRESSION: 1: Interval development of a small area of acute cerebral infarct involving the posterior left frontal lobe parasagittal region. 2: There is a small area of possible subacute infarct involving the posterior right frontal lobe valentino radiata region, which is located in the area of previous acute cerebral infarct. 3: Interval evolution and now chronic ischemic changes involving the previously seen scattered and patchy areas of acute cerebral infarct involving the bilateral posterior cerebral hemispheres (right side much more than the left). 4: Chronic small vessel ischemic disease. HYPERTENSION - RESUME HOME MEDICATIONS. GENERALIZED WEAKNESS - START PHYSICAL THERAPY HYPERLIPIDEMIA - RESUME HOME MEDICATIONS PLAN FOR THIS PATIENT IS TRANSFER FROM 4TH FLOOR TO INPATIENT REHAB - I HAVE ATTEMPTED TO CALL PT'S DTR-IN-LAW AT PT'S REQUEST. I WILL WORK ON GETTING PT AN APPT WITH NEUROLOGY OUTPATIENT TO EVALUATE POSSIBLE PROCEDURES/STENTING FOR HER POSTERIOR VERTEBRAL ARTERY. Clinical Quality Measures DVT/VTE Risk/Contraindication: Risk Factor Score Per Nursin RFS Level Per Nursing on Admit: 2=Moderate Stroke: Date of last known well: May 23, 2017 Time of last known well: 10:00 Symptoms onset unknown: CHRISTINE Novoa MD May 26, 2017 09:11
--- NOTE | 2017-05-26 10:35 | Occupational Ther Daily Note ---
OT Current Status-Daily Note Subjective Pt alert, sitting in recliner. Pt finishing up breakfast. Pt agreed to therapy. Mental Status/Objective Patient Orientation: Person, Place, Time, Situation Functional [place] Measure 0=Not Assessed/NA 4=Minimal Assistance 1=Total Assistance 5=Supervision or Setup 2=Maximal Assistance 6=Modified [place] 3=Moderate Assistance 7=Complete [place] Attachments: IV ADL-Treatment After set up, pt able to wash upper body and lower body with cleansing cloths. Pt takes increased time to complete tasks, slow movement. Pt stood with SBA to hike pants up and down over hips. Pt able to reach to feet. Pt has hospital gown and is able to thread arms through sleeves. After therapy, PT took over care of pt. Bathing (FIM): 5 Upper Body (FIM): 5 Lower Body Dressing (FIM): 5 OT Short Term Goals Short Term Goals 1=Demonstrate adherence to instructed precautions during ADL tasks. 2=Patient will verbalize/demonstrate understanding of assistive devices/ modifications for ADL. 3=Patient will improve strength/tolerance for activity to enable patient to perform ADL's. OT Prison Goals Prison Goals Time Frame: Jun 01, 2017 Eating (FIM): 6 Grooming(FIM): 6 Bathing(FIM): 5 Upper Body Dressing(FIM): 5 Lower Body Dressing(FIM): 5 Toileting(FIM): 6 Transfers (B,C,W/C) (FIM): 6 Toilet/Commode Transfer(FIM): 6 Shower Transfer(FIM): 5 Additional Goals: 1-Demonstrate ADL Tasks, 2-Verbalize Understanding, 3- ImproveStrength/Noah 1=Demonstrate adherence to instructed precautions during ADL tasks. 2=Patient will verbalize/demonstrate understanding of assistive devices/ modifications for ADL. 3=Patient will improve strength/tolerance for activity to enable patient to perform ADL's. OT Education/Plan Discharge Recommendations Plan/Recommendations: Continue POC Treatment Plan/Plan of Care Patient would benefit from OT for education, treatment and training to promote independence in ADL's, mobility, safety and/or upper extremity function for ADL' s. Plan of Care: ADL Retraining, Functional Mobility, UE Funct Exercise/Act Treatment Duration: Jun 01, 2017 Frequency: 5 times per week Estimated Hrs Per Day: .25 hour per day Agreement: Yes Rehab Potential: Fair Time/GCodes Start Time: 10:05 Stop Time: 10:25 Total Time Billed (hr/min): 20 Billed Treatment Time 1 visit-ADL 1 (20 min) FILIBERTO MEJIA May 26, 2017 10:35
--- NOTE | 2017-05-26 10:43 | Physical Therapy Daily Note ---
PT Daily Note-Current Subjective Patient just complete with OT. Agrees to PT. Pain Numeric Pain Scale: 0-No Pain Location: No Pain Reported Mental Status Patient Orientation: Normal For Age Transfers Functional [place] Measure 0=Not Assessed/NA 4=Minimal Assistance 1=Total Assistance 5=Supervision or Setup 2=Maximal Assistance 6=Modified [place] 3=Moderate Assistance 7=Complete IndependenceIRFPAI Quality Coding Scale 6 Independent with activity with or without an assistive device 5 Patient requires set up or clean up by helper. Patient completes activity by themselves 4 Supervision or touching assist (CGA). [place] provide cues , steadying assist 3 The helper provides less than half the effort to complete the activity 2 The helper provides more than half the effort to complete the activity 1 Dependent. The helper does all the effort to complete an activity 7 Patient refused to complete or attempt activity 9 The patient did not perform the activity before the current illness or injury 88 Not attempted due to Medical conditions or safety concerns Transfers (B, C, W/C) (FIM): 6 Scootin Sit to/from Stand: 6 Weight Bearing Right Lower Extremity: Right Full Weight Bearing Left Lower Extremity: Left Full Weight Bearing Gait Training Gait (FIM): 6 Distance (FIM): 3=150 ft Distance: 300' x 2 Gait Level of Assist: 6 Gait Assistive Device: FWW slow, reciprocal pattern, no deviation Stair Training Stair Training: Handrails/: 1 handrail Stairs (FIM): 5 #of Steps: 12 Stairs: Pattern: Step to Level of Assist: 5 Assessment Current Status: Excellent Progress Patient is currently at [facility] with all gross motor skills safely. Patient performed all tasks without difficulty and demonstrated safe functional mobility. All functional goals attained. PT Chcf Goals Chcf Goals PT Chcf Goals Time Frame: Jun 01, 2017 Transfers (B,C,W/C) (FIM): 6 Gait (FIM): 6 Gait distance (FIM): 3=150 ft Gait Level of Assist: 6 Gait Assistive Device: FWW Stairs (FIM): 5 # of Steps: 12 Stairs Level Of Assist: 5 PT Plan Treatment/Plan Treatment Plan: Continue Plan of Care (per dr ho) Treatment Plan: Education, Functional Activity Noah, Functional Strength, Gait , Safety, Therapeutic Exercise, Transfers Treatment Duration: Jun 01, 2017 Frequency: 6 times per week Estimated Hrs Per Day: .25 hour per day Patient and/or Family Agrees t: Yes Time/GCodes Time In: 1025 Time Out: 1037 Total Billed Treatment Time: 12 Total Billed Treatment 1 visit FA 12 min WILLIAMS LOPEZ PT May 26, 2017 10:43
[2017-05-26 12:00] VITALS: BP 134/63
[2017-05-26] MEDS: FOLIC ACID 1 MG TAB PO SCH (12:56)
[2017-05-26 15:49] VITALS: BP 131/73
[2017-05-26] MEDS: OMEGA 3 (FISH OIL) 1000 MG CAP PO SCH (17:56)
[2017-05-26 20:00] VITALS: BP_SYST 124; BP_SYST 133; BP_DIAS 57; BP_DIAS 63
[2017-05-26] MEDS: clonazePAM 1 MG (KlonoPIN) TAB PO SCH (20:39)
[2017-05-26] MEDS: ATORVASTATIN 20 MG (LIPITOR) TABLET PO SCH (20:39)
[2017-05-26] MEDS: LOSARTAN 100 MG (COZAAR) TABLET PO SCH (20:39)
[2017-05-26] MEDS: PRAMIPEXOLE 0.5 MG TAB (MIRAPEX) PO SCH (20:39)
[2017-05-26] MEDS: LATANOPROST 0.005% (XALATAN) OPHTH SOLN 2.5 ML OU SCH (20:40)
[2017-05-27] VITALS: BP 139/62
[2017-05-27 03:59] VITALS: BP 124/59
[2017-05-27] MEDS: CATHETER FLUSH 10 ML SYR IV SCH (06:29)
[2017-05-27 08:00] VITALS: BP 136/59
--- NOTE | 2017-05-27 09:18 | Discharge Summary ---
Diagnosis/Chief Complaint Date of Admission May 24, 2017 at 12:30 Date of Discharge Discharge Date: May 27, 2017 Discharge Time: 09:00 Admission Diagnosis Admission Diagnosis RIGHT VERTEBRAL ARTERY STENOSIS WITH STROKE HYPERTENSION GENERALIZED WEAKNESS HYPERLIPIDEMIA Discharge Diagnosis RIGHT VERTEBRAL ARTERY STENOSIS WITH STROKE HYPERTENSION GENERALIZED WEAKNESS HYPERLIPIDEMIA Reason Hospital Visit PT IS A 71 Y/O FEMALE WHO IS KNOWN TO ME FROM CLINIC. SHE PRESENTED TO THE HOSPITAL WITH SYMPTOMS OF RECURRENT STROKE. SHE WAS AT HOME, HER HEARD A LOUD NOISE AND FOUND HER AGAINST THE WALL WITH COMPLAINT OF WEAKNESS AND HER LEFT LEG NOT WORKING CORRECTLY. SHE HAD IMAGING WHICH SHOWED A CHANGE FROM HER CTA IN NOVEMBER OF 2016 - HER RIGHT DISTAL VERTEBRAL ARTERY HAS A HIGH GRADE STENOSIS. SHE WAS THUS ADMITTED FOR FURTHER WORK-UP AND THERAPY. Discharge Summary Discharge Physical Examination Allergies: Coded Allergies: Sulfa (Sulfonamide Antibiotics) (Verified Allergy, Unknown, 05/16/05) latex (Verified Allergy, Unknown, 05/16/05) Vitals & I&Os Vital Signs Date Time Temp Pulse Resp B/P (MAP) Pulse Ox O2 Delivery O2 Flow Rate FiO2 05/27/17 08:00 97.2 59 16 136/59 (84) 98 Room Air General Appearance: Alert, Oriented X3, Cooperative, No Acute Distress HEENT: Atraumatic, PERRLA, Mucous Memb Moist/[place] Respiratory: Clear to Auscultation, Normal Air Movement Cardiovascular: Regular Rate, Normal S1, Normal S2 Abdominal: Normal Bowel Sounds, Soft Extremities: No Clubbing, No Cyanosis Skin: No Rashes, No Breakdown Neuro: Cranial Nerves 3-12 NL, Other (RIGHT AND LEFT HAND WEAKNESS, LOWER EXTREMITY WEAKNESS, LEFT GREATER THAN RIGHT) Psych/Mental Status: Mental Status NL, Mood NL Hospital Course RIGHT VERTEBRAL ARTERY STENOSIS STROKE HYPERTENSION GENERALIZED WEAKNESS HYPERLIPIDEMIA RIGHT VERTEBRAL ARTERY STENOSIS - PT'S CTA SHOWED RIGHT VERTEBRAL ARTERY STENOSIS - MRI PENDING, WILL NEED TO REFER TO NEUROLOGIST AT ON DISCHARGE, CONTINUE WITH PLAVIX AND ASPIRIN AND CHOLESTEROL CONTROL. STROKE - MRI REPORT FOLLOWS:IMPRESSION: 1: Interval development of a small area of acute cerebral infarct involving the posterior left frontal lobe parasagittal region. 2: There is a small area of possible subacute infarct involving the posterior right frontal lobe valentino radiata region, which is located in the area of previous acute cerebral infarct. 3: Interval evolution and now chronic ischemic changes involving the previously seen scattered and patchy areas of acute cerebral infarct involving the bilateral posterior cerebral hemispheres (right side much more than the left). 4: Chronic small vessel ischemic disease. HYPERTENSION - RESUME HOME MEDICATIONS. GENERALIZED WEAKNESS - START PHYSICAL THERAPY HYPERLIPIDEMIA - RESUME HOME MEDICATIONS I HAVE DISCUSSED HER CASE WITH [facility] NEUROLOGIST AND HE RECOMMENDED CONTINUED TREATMENT OF HER STROKE WITH PLAVIX, ASPIRIN, PRAVASTATIN. HE STATES THAT HE WILL SEE HER IN HIS CLINIC IN THE NEXT 2-3 WEEKS AND THERE IS REALLY NO INTERVENTION THAT CAN OCCUR AT THIS TIME. THE PT IS TOO HIGH FUNCTIONING FOR INPATIENT REHAB AND SHE WOULD LIKE TO GO TO [facility] FOR THERAPY. Discharge Condition at discharge IMPROVING - SLOWLY Instructions to patient/family Please see electronic discharge instructions given to patient. Discharge Medications Reviewed and agree with Discharge Medication list on patient's Discharge Instruction sheet Clinical Quality Measures DVT/VTE Risk/Contraindication: Risk Factor Score Per Nursin RFS Level Per Nursing on Admit: 2=Moderate Stroke: Date of last known well: May 23, 2017 Time of last known well: 10:00 Symptoms onset unknown: No CHRISTINE LUNDY MD May 27, 2017 09:18
--- NOTE | 2017-05-27 09:22 | Discharge Inst-Skilled Nursing ---
Discharge Inst-Skilled NF Patient Instructions Patient Problems: RIGHT VERTEBRAL ARTERY STENOSIS STROKE HYPERTENSION GENERALIZED WEAKNESS HYPERLIPIDEMIA RIGHT VERTEBRAL ARTERY STENOSIS - PT'S CTA SHOWED RIGHT VERTEBRAL ARTERY STENOSIS - MRI PENDING, WILL NEED TO REFER TO NEUROLOGIST AT ON DISCHARGE, CONTINUE WITH PLAVIX AND ASPIRIN AND CHOLESTEROL CONTROL. STROKE - MRI REPORT FOLLOWS:IMPRESSION: 1: Interval development of a small area of acute cerebral infarct involving the posterior left frontal lobe parasagittal region. 2: There is a small area of possible subacute infarct involving the posterior right frontal lobe valentino radiata region, which is located in the area of previous acute cerebral infarct. 3: Interval evolution and now chronic ischemic changes involving the previously seen scattered and patchy areas of acute cerebral infarct involving the bilateral posterior cerebral hemispheres (right side much more than the left). 4: Chronic small vessel ischemic disease. Goal: HOME WITH IN 2 WEEKS Consult/Follow Up/Orders Follow Up Appt.: 1 WEEK WITH [facility] Skilled NF Admit to: [facility] Certification ([facility]) I certify that SNF services are required to be given on an inpatient basis because of the above named patient's need for fci care on a continuing basis for the conditions(s) for which he/she was receiving inpatient hospital services prior to his/her transfer to the SNF. Shelter Facility Order: Nursing Services, Explosive Operator Grenade-Evaluate & Treat, Physical Therapy-Evaluate & Treat Discharge Diet: Regular Diet Daily Activity as Tolerated: Yes New & Resume Previous Orders Christine Echeverria May 27, 2017 09:21 Medication List: Active Scripts Active Reported Pepcid (Famotidine) 20 Mg Tablet 20 Mg PO HS PRN Folic Acid 1 Mg Tablet 1 Mg PO 1200 Azathioprine 50 Mg Tablet 75 Mg PO DAILY TAKES 1 & 1/2 OF A (50 MG) TABLET Aspirin EC (Aspirin) 81 Mg Tablet. 81 Mg PO DAILY Fluoxetine HCl 40 Mg Capsule 40 Mg PO DAILY Clopidogrel (Clopidogrel Bisulfate) 75 Mg Tablet 75 Mg PO DAILY Spironolactone 25 Mg Tablet 25 Mg PO DAILY LAST FILLED 02/08/17 #90 Timolol Maleate 0.5% (Timolol Maleate) 5 Ml Drops 1 Drop OU BID Lumigan (Bimatoprost) 2.5 Ml Drops 1 Drop OU HS Fish Oil 1,400 mg Softgel ([place]-3/Dha/Epa/Fish Oil) 1 Each Capsule. 1,400 Mg PO 1700 Prolia (Denosumab) 60 Mg/1 Ml Disp.syrin 60 Mg SQ EVERY 6 MONTHS Pramipexole Dihydrochloride (Pramipexole Di-HCl) 0.5 Mg Tablet 0.5 Mg PO HS Clonazepam 0.5 Mg Tablet 1 Mg PO HS TAKES 2 (0.5MG) TABLETS Pravastatin Sodium 80 Mg Tablet 80 Mg PO HS Losartan Potassium 100 Mg Tablet 100 Mg PO HS Diphenoxylate-Atrop 2.5-0.025 (Diphenoxylate HCl/Atropine) 1 Each Tablet 1 Tab PO HS PRN Lialda (Mesalamine) 1.2 Gm Tablet. 1.2 Gm PO HS My orders: Orders - CHRISTINE ECHEVERRIA MD Attending Discharge (05/27/17 09:19) CHRISTINE ECHEVERRIA MD May 27, 2017 09:22
[2017-05-27] MEDS: FLUoxetine HCL 20 MG (PROzac) CAP PO SCH (09:29)
[2017-05-27] MEDS: ASPIRIN 81 MG CHEW (CHILDREN'S ASA) PO SCH (09:29)
[2017-05-27] MEDS: azaTHIOprine (IMURAN) 50 MG TAB PO SCH (09:29)
[2017-05-27] MEDS: TIMOLOL MALEATE 0.5% 5 ML (TIMOPTIC) BTL OU SCH (09:29)
[2017-05-27] MEDS: SPIRONOLACTONE 25 MG (ALDACTONE) TAB PO SCH (09:29)
[2017-05-27] MEDS: CLOPIDOGREL 75 MG (PLAVIX) TABLET PO SCH (09:30)
--- NOTE | 2017-05-27 10:34 | Physical Therapy Daily Note ---
PT Daily Note-Current Subjective Pt agreeable to PT. Reports her strength is improving. Reports on Thursday she could not move at all and now she can. Reports she has poor vision and has no peripheral vision. Pain Numeric Pain Scale: 0-No Pain Location: No Pain Reported Mental Status Patient Orientation: Person, Place, Time, Situation Transfers Functional [place] Measure 0=Not Assessed/NA 4=Minimal Assistance 1=Total Assistance 5=Supervision or Setup 2=Maximal Assistance 6=Modified [place] 3=Moderate Assistance 7=Complete IndependenceIRFPAI Quality Coding Scale 6 Independent with activity with or without an assistive device 5 Patient requires set up or clean up by helper. Patient completes activity by themselves 4 Supervision or touching assist (CGA). [place] provide cues , steadying assist 3 The helper provides less than half the effort to complete the activity 2 The helper provides more than half the effort to complete the activity 1 Dependent. The helper does all the effort to complete an activity 7 Patient refused to complete or attempt activity 9 The patient did not perform the activity before the current illness or injury 88 Not attempted due to Medical conditions or safety concerns Transfers (B, C, W/C) (FIM): 6 (requires extra time.) Supine to/from Sit: 6 Sit to/from Stand: 6 Pt requires extra time for transfers but does not need assist. Pt was able to use her R UE to work the lever to lower the foot rest on her recliner. Pt demonstrates correct hand placement with sit to from stand transfers and is able to transfer in a controlled manner. She transferred in/out of bed without assist. Weight Bearing Right Lower Extremity: Right Full Weight Bearing Left Lower Extremity: Left Full Weight Bearing Gait Training Gait (FIM): 6 Distance (FIM): 3=150 ft Distance: 200 ft Gait Level of Assist: 6 (mod indep) Gait Assistive Device: FWW Pt walks with a slow gait pattern but has equal step length, step through bilaterally, heel strike and toe off bilaterally. She was able to sidestep x 8 ft with FWW. She stopped on 2 occasions during gait to talk with this therapist and was able to lift her hands off the walker and stand unsupported in a steady and safe manner. No noted LOB throughout upright mobility. Treatments Functional gait and transfer training as well as standing static and dynamic balance. Assessment Current Status: Good Progress Pt is mod indep with functional gait and transfers. No noted LOB episodes throughout treatment time this date. Pt is slow with gait but steady. PT Information Systems Project Manager Goals Fdc Goals PT Fdc Goals Time Frame: Jun 01, 2017 Transfers (B,C,W/C) (FIM): 6 (met) Gait (FIM): 6 (met) Gait distance (FIM): 3=150 ft Gait Level of Assist: 6 Gait Assistive Device: FWW Stairs (FIM): 5 # of Steps: 12 Stairs Level Of Assist: 5 PT Plan Treatment/Plan Treatment Plan: Continue Plan of Care Treatment Plan: Education, Functional Activity [place], Functional Strength, Gait , Safety, Therapeutic Exercise, Transfers Treatment Duration: Jun 01, 2017 Frequency: 6 times per week Estimated Hrs Per Day: .25 hour per day Patient and/or Family Agrees t: Yes Safety Risks/Education Patient Education: Safety Issues Teaching Recipient: Patient Teaching Methods: Discussion Response to Teaching: Verbalize Understanding Pt expresses that her peripheral vision is impaired; educated pt on scanning the environment for safety with obstacles. Discharge Recommendations Therapy D/C Recommendations: Physical Therapy Home Care Time/GCodes Time In: 940 Time Out: 1005 Total Billed Treatment Time: 25 Total Billed Treatment visit FA 25 FILIBERTO RAMACHANDRAN PT May 27, 2017 10:34
--- NOTE | 2017-05-27 11:47 | Occupational Ther Daily Note ---
OT Current Status-Daily Note Subjective Pt sitting in chair, agrees to treatment. Mental Status/Objective Functional [place] Measure 0=Not Assessed/NA 4=Minimal Assistance 1=Total Assistance 5=Supervision or Setup 2=Maximal Assistance 6=Modified [place] 3=Moderate Assistance 7=Complete [place] ADL-Treatment Pt declined shower, but would like a sponge bath today. Pt completed sponge bath while seated in chair. Pt able to wash/dry all areas with modified independence and increased time. Pt does not have any clothes available so donned hospital gown after set up. Pt donned underwear with modified independence. Takes increased time to complete task, but no physical assist needed. Pt doffed/donned socks without assistance. Pt sit to stand with modified independence. Gait to restroom with FWW, no LOB noted. Pt stood at sink to brush teeth with modified independence. Pt has no difficulty opening toothpaste or taking soft work wrapper layer and examiner toothbrush. Pt demonstrated ability to perform toilet transfer with modified independence using grab bar. Pt returned to chair with modified independence. Pt requires increased time for all functional tasks, but does not need assist. Pt sitting in chair with needs met after session. Grooming (FIM): 6 Bathing (FIM): 6 Lower Body Dressing (FIM): 6 Toilet/Commode Transfer (FIM): 6 OT Short Term Goals Short Term Goals 1=Demonstrate adherence to instructed precautions during ADL tasks. 2=Patient will verbalize/demonstrate understanding of assistive devices/ modifications for ADL. 3=Patient will improve strength/tolerance for activity to enable patient to perform ADL's. OT Alf Goals Supervisor Grading Goals Time Frame: Jun 01, 2017 Eating (FIM): 6 Grooming(FIM): 6 Bathing(FIM): 5 Upper Body Dressing(FIM): 5 Lower Body Dressing(FIM): 5 Toileting(FIM): 6 Transfers (B,C,W/C) (FIM): 6 Toilet/Commode Transfer(FIM): 6 Shower Transfer(FIM): 5 Additional Goals: 1-Demonstrate ADL Tasks, 2-Verbalize Understanding, 3- ImproveStrength/Noah 1=Demonstrate adherence to instructed precautions during ADL tasks. 2=Patient will verbalize/demonstrate understanding of assistive devices/ modifications for ADL. 3=Patient will improve strength/tolerance for activity to enable patient to perform ADL's. OT Education/Plan Discharge Recommendations Plan/Recommendations: Continue POC Treatment Plan/Plan of Care Patient would benefit from OT for education, treatment and training to promote independence in ADL's, mobility, safety and/or upper extremity function for ADL' s. Plan of Care: ADL Retraining, Functional Mobility, UE Funct Exercise/Act Treatment Duration: Jun 01, 2017 Frequency: 5 times per week Estimated Hrs Per Day: .25 hour per day Agreement: Yes Rehab Potential: Fair Time/GCodes Start Time: 10:40 Stop Time: 11:19 Total Time Billed (hr/min): 39 Billed Treatment Time 1 visit, ADLx3(39minutes) TALIA HAMM OT May 27, 2017 11:47
[2017-05-27 12:00] VITALS: BP 145/65
[2017-05-27] MEDS: FOLIC ACID 1 MG TAB PO SCH (12:37)
--- OUTSIDE RECORDS SUMMARY | 2017-05-27 12:46 | XMS REPORT | CCD ---
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 Role Phone PP Unavailable CCM Unavailable Summary Purpose Interface Exchange Insurance Providers Payer name Policy type / Coverage type Covered libertarian ID Effective Begin Date Effective End Date WPS Medicare Part B Medicare Part B [id number] Unknown Unknown [facility] Medicare Part B [id number] Unknown Unknown Family history Mother Diagnosis Age At Onset Anemia Unknown Hyperlipidemia Unknown Osteoporosis Unknown Coronary Artery Disease Unknown Arthritis Unknown Glaucoma Unknown Father Diagnosis Age At Onset Hypertension Unknown Alcoholism Unknown Brother Diagnosis Age At Onset Colon cancer Unknown Sister Diagnosis Age At Onset Breast cancer Unknown Grandmother Diagnosis Age At Onset Heart Attack Unknown Aunt Diagnosis Age At Onset Diabetes Unknown Daughter Diagnosis Age At Onset No Family Disease Entered N/A Social History Social History Element Codes Description Effective Dates Marital status Unknown [place] 10/11/2014 Number of children Unknown 3 10/11/[address]: 627430786 Never smoker 10/11/[address]: 526287152 Never drinks alcohol 10/11/2014 Allergies, Adverse Reactions, Alerts Allergies, Adverse Reactions, Alerts data not found Past Medical History Illness Codes Condition Status Onset Date Resolved Date Essential (primary) hypertension ICD-9: 401.9 ICD-10: I10 Active 10/10/2014 Unknown Mixed hyperlipidemia ICD-9: 272.4 ICD-10: E78.2 Active 05/20/2016 Unknown Muscle weakness (generalized) ICD-9: 728.87 ICD-10: M62.81 Active 12/05/2016 Unknown Cerebral infarction, unspecified ICD-9: 434.91 ICD-10: I63.9 Active 12/05/2016 Unknown Allergic rhinitis due to pollen ICD-9: 477.0 ICD-10: J30.1 Active 12/05/2016 Unknown Gastro-esophageal reflux disease without esophagitis ICD-9: 530.81 ICD-10: K21.9 Active 12/05/2016 Unknown Encounter for general adult medical examination with abnormal findings ICD-9: V70.0 ICD-10: Z00.01 Active 08/21/2016 Unknown Type 2 diabetes mellitus without complications ICD-9: 250.00 ICD-10: E11.9 Active 01/22/2016 Unknown Encounter for immunization ICD-9: V03.82 ICD-10: Z23 Active 02/19/2016 Unknown Abnormal weight gain ICD-9: 783.1 ICD-10: R63.5 Active 01/22/2016 Unknown Actinic keratosis ICD- 9: 702.0 ICD-10: L57.0 Active 01/22/2016 Unknown Encounter for immunization ICD-9: V04.81 ICD-10: Z23 Active 01/22/2016 Unknown Family history of other endocrine, nutritional and metabolic diseases ICD-9: V18.19 ICD-10: Z83.49 Active 01/22/2016 Unknown Other fatigue ICD-9: 780.79 ICD-10: R53.83 Active 01/22/2016 Unknown Other depressive episodes ICD-9: 311 ICD-10: F32.8 Active 10/10/2014 Unknown Vitamin D deficiency, unspecified ICD-9: 268.9 ICD-10: E55.9 Active 08/22/2015 Unknown Encounter for general adult medical examination without abnormal findings ICD-9: V70.0 ICD-10: Z00.00 Active 07/18/2015 Unknown Diabetes Unknown Active 04/17/2015 Unknown Benign paroxysmal vertigo, unspecified ear ICD-9: 386.11 ICD-10: H81.10 Active 04/16/2015 Unknown Edema, unspecified ICD -9: 782.3 ICD-10: R60.9 Active 02/05/2015 Unknown DEPRESSIVE DISORDER NEC ICD-9: 311 Active 10/10/2014 Unknown ESOPHAGEAL REFLUX ICD- 9: 530.81 Active 10/10/2014 Unknown ESSENTIAL HYPERTENSION ICD-9: 401.9 Active 10/10/2014 Unknown HYPERLIPIDEMIA ICD-9: 272.4 Active 10/10/2014 Unknown RESTLESS LEGS SYNDROME ICD-9: 333.94 Active 10/10/2014 Unknown Depression Unknown Active 10/11/2014 Unknown Hyperlipidemia Unknown Active 10/11/2014 Unknown Hypertension Unknown Active 10/11/2014 Unknown Problems Condition Codes Effective Dates Condition Status Essential (primary) hypertension ICD-9: 401.9 ICD-10: I10 10/10/2014 Active Mixed hyperlipidemia ICD-9: 272.4 ICD-10: E78.2 05/20/2016 Active Muscle weakness (generalized) ICD-9: 728.87 ICD-10: M62.81 12/05/2016 Active Cerebral infarction, unspecified ICD-9: 434.91 ICD-10: I63.9 12/05/2016 Active Allergic rhinitis due to pollen ICD-9: 477.0 ICD-10: J30.1 12/05/2016 Active Gastro-esophageal reflux disease without esophagitis ICD-9: 530.81 ICD-10: K21.9 12/05/2016 Active Encounter for general adult medical examination with abnormal findings ICD-9: V70.0 ICD-10: Z00.01 08/21/2016 Active Type 2 diabetes mellitus without complications ICD-9: 250.00 ICD-10: E11.9 01/22/2016 Active Encounter for immunization ICD-9: V03.82 ICD-10: Z23 02/19/2016 Active Abnormal weight gain ICD-9: 783.1 ICD-10: R63.5 01/22/2016 Active Actinic keratosis ICD- 9: 702.0 ICD-10: L57.0 01/22/2016 Active Encounter for immunization ICD-9: V04.81 ICD-10: Z23 01/22/2016 Active Family history of other endocrine, nutritional and metabolic diseases ICD-9: V18.19 ICD-10: Z83.49 01/22/2016 Active Other fatigue ICD-9: 780.79 ICD-10: R53.83 01/22/2016 Active Other depressive episodes ICD-9: 311 ICD-10: F32.8 10/10/2014 Active Vitamin D deficiency, unspecified ICD-9: 268.9 ICD-10: E55.9 08/22/2015 Active Encounter for general adult medical examination without abnormal findings ICD-9: V70.0 ICD-10: Z00.00 07/18/2015 Active Diabetes Unknown 04/17/2015 Active Benign paroxysmal vertigo, unspecified ear ICD-9: 386.11 ICD-10: H81.10 04/16/2015 Active Edema, unspecified ICD -9: 782.3 ICD-10: R60.9 02/05/2015 Active DEPRESSIVE DISORDER NEC ICD-9: 311 10/10/2014 Active ESOPHAGEAL REFLUX ICD- 9: 530.81 10/10/2014 Active ESSENTIAL HYPERTENSION ICD-9: 401.9 10/10/2014 Active HYPERLIPIDEMIA ICD-9: 272.4 10/10/2014 Active RESTLESS LEGS SYNDROME ICD-9: 333.94 10/10/2014 Active Depression Unknown 10/11/2014 Active Hyperlipidemia Unknown 10/11/2014 Active Hypertension Unknown 10/11/2014 Active Medications Medication Codes Instructions Start Date Stop Date Status Fill Instructions hi5 Test strips RxNorm: TEST 1 TIME DAILY 201707/07/2018 Active clonazepam 0.5 mg tablet RxNorm: 507711 Tablet(s) TAKE 2 TABLETS BY MOUTH AT BEDTIME NEEDED 04/14/2017 07/12/2017 Active Lomotil 2.5 mg-0.025 mg tablet RxNorm: 6767928 1 Tablet(s) PO daily as needed 03/17/2017 09/12/2017 Active Mirapex 0.5 mg tablet RxNorm: 194686 TAKE ONE TABLET BY MOUTH EVERY NIGHT AT BEDTIME 01/19/2017 07/17/2017 Active clonazepam 0.5 mg tablet RxNorm: 450929 Tablet(s) TAKE 2 TABLETS BY MOUTH AT BEDTIME NEEDED 01/12/2017 04/09/2017 Inactive tramadol 50 mg tablet RxNorm: 028235 1-2 Tablet(s) PO Q6 PRN pain 12/31/2016 01/04/2017 Inactive folic acid 1 mg tablet RxNorm: 682585 TAKE ONE TABLET BY MOUTH DAILY 12/24/2016 12/18/2017 Active tramadol 50 mg tablet RxNorm: 086560 1-2 Tablet(s) PO Q6 PRN pain 12/12/2016 12/16/2016 Inactive tramadol 50 mg tablet RxNorm: 071965 1-2 Tablet(s) PO Q6 PRN pain 12/12/2016 12/11/2016 Inactive clonazepam 0.5 mg tablet RxNorm: 629589 Tablet(s) TAKE 2 TABLETS BY MOUTH AT BEDTIME NEEDED 12/09/2016 01/11/2017 Inactive pravastatin 80 mg tablet RxNorm: 084058 TAKE ONE TABLET BY MOUTH EVERY EVENING 11/11/2016 08/07/2017 Active Prozac 40 mg capsule RxNorm: 200420 TAKE ONE CAPSULE BY MOUTH DAILY 10/29/2016 07/25/2017 Active Mirapex 0.5 mg tablet RxNorm: 949993 TAKE ONE TABLET BY MOUTH EVERY NIGHT AT BEDTIME 10/29/2016 01/18/2017 Inactive spironolactone 25 mg tablet RxNorm: 079885 TAKE ONE TABLET BY MOUTH DAILY 10/29/2016 12/04/2016 Inactive clonazepam 0.5 mg tablet RxNorm: 579826 Tablet(s) TAKE 2 TABLETS BY MOUTH AT BEDTIME NEEDED 09/24/2016 11/22/2016 Inactive Lomotil 2.5 mg-0.025 mg tablet RxNorm: 2428572 1 Tablet(s) PO daily as needed 07/30/2016 01/23/2017 Inactive sucralfate 1 gram tablet RxNorm: 243644 TAKE ONE-HALF TABLET BY MOUTH TWO TIMES A DAY ONE HOUR BEFORE MEALS 07/28/201610/25 Inactive losartan 100 mg tablet RxNorm: 356828 TAKE ONE TABLET BY MOUTH DAILY 07/28/2016 01/23/2017 Inactive Lialda 1.2 gram tablet,delayed release RxNorm: 987536 3 Tablet(s) PO daily 07/02/2016 10/29/2016 Inactive Mirapex 0.5 mg tablet RxNorm: 514211 TAKE ONE TABLET BY MOUTH EVERY NIGHT AT BEDTIME 06/27/2016 10/24/2016 Inactive clonazepam 0.5 mg tablet RxNorm: 095020 Tablet(s) TAKE 2 TABLETS BY MOUTH AT BEDTIME NEEDED 06/27/2016 01/11/2017 Inactive clonazepam 0.5 mg tablet RxNorm: 764444 Tablet(s) TAKE 2 TABLETS BY MOUTH AT BEDTIME NEEDED 04/29/2016 06/25/2016 Inactive folic acid 1 mg tablet RxNorm: 851549 TAKE ONE TABLET BY MOUTH DAILY 02/28/2016 11/23/2016 Inactive clonazepam 0.5 mg tablet RxNorm: 011702 Tablet(s) TAKE 2 TABLETS BY MOUTH AT BEDTIME NEEDED 02/26/2016 01/11/2017 Inactive OneTouch Ultra Test strips RxNorm: TEST ONCE DAILY 02/25/2016 08/22/2016 Inactive sucralfate 1 gram tablet RxNorm: 441816 TAKE ONE-HALF TABLET BY MOUTH TWO TIMES A DAY ONE HOUR BEFORE MEALS 01/28/201607/25 Inactive Mirapex 0.5 mg tablet RxNorm: 665035 TAKE ONE TABLET BY MOUTH EVERY NIGHT AT BEDTIME 01/28/2016 06/25/2016 Inactive spironolactone 25 mg tablet RxNorm: 706018 TAKE ONE TABLET BY MOUTH DAILY 01/28/2016 10/23/2016 Inactive Klor-Con M20 mEq tablet,extended release RxNorm: 272049 TAKE ONE TABLET BY MOUTH THREE TIMES A DAY 12/05/2015 08/30/2016 Inactive Lomotil 2.5 mg-0.025 mg tablet RxNorm: 1488613 1 Tablet(s) PO daily as needed 12/05/2015 01/11/2017 Inactive losartan 100 mg tablet RxNorm: 635767 TAKE ONE TABLET BY MOUTH DAILY 11/22/2015 07/27/2016 Inactive amlodipine 5 mg tablet RxNorm: 915259 TAKE ONE TABLET BY MOUTH DAILY 11/13/2015 11/06/2016 Inactive Refill not appropriate clonazepam 0.5 mg tablet RxNorm: 472598 Tablet(s) TAKE 2 TABLETS BY MOUTH AT BEDTIME NEEDED 11/08/2015 01/11/2017 Inactive clonazepam 0.5 mg tablet RxNorm: 203104 Tablet(s) TAKE 2 TABLETS BY MOUTH AT BEDTIME NEEDED 11/02/2015 01/29/2016 Inactive Prozac 40 mg capsule RxNorm: 895390 1 Capsule(s) PO daily 10/3010/24/2016 Inactive pravastatin 80 mg tablet RxNorm: 657205 1 Tablet(s) PO QPM 10/23/2016 Inactive OneTouch Ultra Test strips RxNorm: TEST ONCE DAILY 10/30/2015 01/27/2016 Inactive Imuran 50 mg tablet RxNorm: 964917 1.5 (75) Tablet(s) PO daily 08/17/2015 08/10/2016 Inactive K75.4 clonazepam 0.5 mg tablet RxNorm: 797722 Tablet(s) TAKE 2 TABLETS BY MOUTH AT BEDTIME NEEDED 08/10/2015 01/11/2017 Inactive Imuran 50 mg tablet RxNorm: 539770 1.5 (75) Tablet(s) PO daily 08/10/2015 08/16/2015 Inactive OneTouch Ultra Test strips RxNorm: TEST ONCE DAILY 08/09/2015 10/29/2015 Inactive Vitamin D2 50,000 unit capsule RxNorm: 949428 1 Capsule(s) PO QW 08/07/2015 01/11/2017 Inactive Mirapex 0.5 mg tablet RxNorm: 504945 Tablet(s) TAKE ONE TABLET BY MOUTH EVERY NIGHT AT BEDTIME 07/19/2015 01/14/2016 Inactive Lomotil 2.5 mg-0.025 mg tablet RxNorm: 0715969 1 Tablet(s) PO daily as needed 06/06/2015 01/11/2017 Inactive clonazepam 0.5 mg tablet RxNorm: 475946 Tablet(s) TAKE 2 TABLETS BY MOUTH AT BEDTIME NEEDED 05/10/2015 08/06/2015 Inactive sucralfate 1 gram tablet RxNorm: 209304 TAKE ONE-HALF TABLET BY MOUTH TWO TIMES A DAY ONE HOUR BEFORE MEALS 05/04/201501/26 Inactive meclizine 25 mg tablet RxNorm: 228813 1/2-1 Tablet(s) PO Q6 PRN 03/15/2015 No Stop Date Active spironolactone 25 mg tablet RxNorm: 144208 1 Tablet(s) PO daily 03/14/2015 01/27/2016 Inactive spironolactone 25 mg tablet RxNorm: 235147 1 Tablet(s) PO daily 03/14/2015 03/13/2015 Inactive clonazepam 0.5 mg tablet RxNorm: 968932 TAKE 2 TABLETS BY MOUTH AT BEDTIME NEEDED 02/08/2015 05/02/2015 Inactive folic acid 1 mg tablet RxNorm: 280257 1 Tablet(s) PO daily 02/01/2016 Inactive clonazepam 0.5 mg tablet RxNorm: 776895 TAKE 2 TABLETS BY MOUTH AT BEDTIME NEEDED 02/06/2015 02/08/2015 Inactive amlodipine 10 mg tablet RxNorm: 159912 1/2 Tablet(s) PO daily 02/06/2015 07/18/2015 Inactive this replaces her 5mg pill OneTouch Ultra Test strips RxNorm: TEST ONCE DAILY 01/30/2015 07/28/2015 Inactive Mirapex 0.5 mg tablet RxNorm: 575960 TAKE ONE TABLET BY MOUTH EVERY NIGHT AT BEDTIME 01/29/2015 07/18/2015 Inactive sucralfate 1 gram tablet RxNorm: 256723 TAKE ONE-HALF TABLET BY MOUTH TWO TIMES A DAY ONE HOUR BEFORE MEALS 01/11/201504/10 Inactive OneTouch Ultra Test strips RxNorm: 1 Miscellaneous daily 11/1401/29/2015 Inactive amlodipine 10 mg tablet RxNorm: 197113 1 Tablet(s) PO daily 02/05/2015 Inactive this replaces her 5mg pill clonazepam 0.5 mg tablet RxNorm: 847026 2 Tablet(s) PO QHS 10/201402/05/2015 Inactive sucralfate 1 gram tablet RxNorm: 355333 1/2 Tablet(s) PO BID 1 hour before meal 10/11/2014 01/08/2015 Inactive losartan 100 mg tablet RxNorm: 648933 1 Tablet(s) PO daily 04/201410/05/2015 Inactive amlodipine 5 mg tablet RxNorm: 775197 1 Tablet(s) PO daily 04/201410/30/2014 Inactive Imuran 50 mg tablet RxNorm: 006393 1.5 (75) Tablet(s) PO daily 10/11/2014 08/09/2015 Inactive Lomotil 2.5 mg-0.025 mg tablet RxNorm: 2656053 1 Tablet(s) PO daily as needed 10/11/2014 06/05/2015 Inactive pravastatin 80 mg tablet RxNorm: 105535 1 Tablet(s) PO QPM 04/201410/05/2015 Inactive Klor-Con M20 mEq tablet,extended release RxNorm: 587605 1 Tablet(s) PO TID 10/11/2014 10/05/2015 Inactive Mirapex 0.5 mg tablet RxNorm: 417363 1 Tablet(s) PO QHS 201401/28/2015 Inactive Prozac 40 mg capsule RxNorm: 145505 1 Capsule(s) PO daily 10/1110/05/2015 Inactive Plavix 75 mg tablet RxNorm: 606142 1 Tablet(s) PO daily No Start Date Active Calcium + D oral RxNorm: 107034 oral No Start Date Active timolol 0.5 % eye drops RxNorm: 030994 1 Drop(s) OPH BID No Start Date Active Lumigan 0.01 % eye drops RxNorm: 3246761 1 Drop(s) OPH QHS No Start Date Active Prolia 60 mg/mL subcutaneous syringe RxNorm: 516882 1 Milliliter(s) SQ every 6 months No Start Date Active Alavert 10 mg disintegrating tablet RxNorm: 580455 1 Tablet(s) PO daily as needed No Start Date Active Vitamin D2 50,000 unit capsule RxNorm: 545905 1 Capsule(s) PO QW No Start Date 08/06/2015 Inactive OneTouch Ultra Test strips RxNorm: 1 Miscellaneous daily No Start Date 11/13/2014 Inactive Lomotil 2.5 mg-0.025 mg tablet RxNorm: 9678165 1 Tablet(s) PO daily as needed No Start Date 10/10/2014 Inactive folic acid 1 mg tablet RxNorm: 804523 1 Tablet(s) PO daily No Start Date 02/06/2015 Inactive amlodipine 5 mg tablet RxNorm: 408025 1 Tablet(s) PO daily No Start Date 10/10/2014 Inactive Imuran 50 mg tablet RxNorm: 158013 1 1/2 (75) Tablet(s) PO daily No Start Date 10/10/2014 Inactive Boniva 3 mg/3 mL intravenous syringe RxNorm: 167554 Milliliter(s) IV No Start Date 07/18/2015 Inactive potassium chloride 20 meq RxNorm: 368567 1 PO TID No Start Date 10/10/2014 Inactive sucralfate 1 gram tablet RxNorm: 185351 1/2 Tablet(s) PO BID 1 hour before meal No Start Date 10/10/2014 Inactive losartan 100 mg tablet RxNorm: 457425 1 Tablet(s) PO daily No Start Date 10/10/2014 Inactive Vitamin D3 2,000 unit tablet RxNorm: 317732 1 Tablet(s) PO daily No Start Date 08/23/2015 Inactive Prozac 40 mg capsule RxNorm: 422102 1 Capsule(s) PO daily No Start Date 10/10/2014 Inactive clonazepam 0.5 mg tablet RxNorm: 808120 2 Tablet(s) PO QHS No Start Date 10/16/2014 Inactive amlodipine 5 mg tablet RxNorm: 800023 1 Tablet(s) PO daily No Start Date 08/22/2015 Inactive pravastatin 80 mg tablet RxNorm: 972330 1 Tablet(s) PO QPM No Start Date 10/10/2014 Inactive Lialda 1.2 gram tablet,delayed release RxNorm: 083594 3 Tablet(s) PO daily No Start Date 07/01/2016 Inactive Medication Administered No Medication Administered data Immunizations Vaccine Codes Date Status Pneumococcal (Adult) CVX: 133 02/20/2016 completed Influenza CVX: 141 01/23/2016 completed Assessments Condition Codes Effective Dates Muscle weakness (generalized) ICD-10: M62.81 ICD-9: 728.87 02/17/2017 Essential (primary) hypertension ICD-10: I10 ICD-9: 401.9 02/17/2017 Mixed hyperlipidemia ICD-10: E78.2 ICD-9: 272.4 02/17/2017 Gastro-esophageal reflux disease without esophagitis ICD-10 : K21.9 ICD-9: 530.81 12/05/2016 Allergic rhinitis due to pollen ICD-10: J30.1 ICD-9: 477.0 12/05/2016 Cerebral infarction, unspecified ICD-10: I63.9 ICD-9: 434.91 12/05/2016 Encounter for general adult medical examination with abnormal findings ICD-10: Z00.01 ICD-9: V70.0 08/21/2016 Type 2 diabetes mellitus without complications ICD-10: E11.9 ICD-9: 250.00 08/19/2016 Encounter for immunization ICD-10: Z23 ICD-9: V03.82 02/20/2016 Family history of other endocrine, nutritional and metabolic diseases ICD-10: Z83.49 ICD-9: V18.19 01/23/2016 Actinic keratosis ICD-10: L57.0 ICD-9: 702.0 01/23/2016 Encounter for immunization ICD-10: Z23 ICD-9: V04.81 01/23/2016 Other fatigue ICD-10: R53.83 ICD-9: 780.79 01/23/2016 Abnormal weight gain ICD-10: R63.5 ICD-9: 783.1 01/23/2016 Vitamin D deficiency, unspecified ICD-10: E55.9 ICD-9: 268.9 08/23/2015 Other depressive episodes ICD-10: F32.8 ICD-9: 311 08/23/2015 Encounter for general adult medical examination without abnormal findings ICD-10: Z00.00 ICD-9: V70.0 07/19/2015 Benign paroxysmal vertigo, unspecified ear ICD-10: H81.10 ICD-9: 386.11 04/17/2015 Edema, unspecified ICD-10: R60.9 ICD-9: 782.3 02/06/2015 RESTLESS LEGS SYNDROME ICD-9: 333.94 05/2014 ESSENTIAL HYPERTENSION ICD-9: 401.9 12/13 DEPRESSIVE DISORDER NEC ICD-9: 311 2014 ESOPHAGEAL REFLUX ICD-9: 530.81 2014 HYPERLIPIDEMIA ICD-9: 272.4 12/13/2014 Reason For Visit Reason For Visit Effective Dates Notes hypertension 02/17/2017 hypertension 01/02/2017 hypertension 12/05/2016 Annual Medicare Wellness Exam 08/21/2016 diabetes mellitus 08/19/2016 diabetes mellitus 05/20/2016 diabetes mellitus 01/23/2016 diabetes mellitus 09/26/2015 vertigo 08/23/2015 Annual Medicare Wellness Exam 07/19/2015 vertigo 04/17/2015 vertigo 03/15/2015 edema 02/06/2015 hypertension 12/13/2014 hypertension 10/11/2014 Results Observation Observation Code Item Item Code Result Date Metabolic Ord15 NA 131 mEq/L 05/08/2017 Metabolic Ord15 K 4.0 mEq/L 05/08/2017 Metabolic Ord15 CL 100 mEq/L 05/08/2017 Metabolic Ord15 CO2 22.0 mEq/L 05/08/2017 Metabolic Ord15 GLUCOSE 98 mg/dL 05/08/2017 Metabolic Ord15 BUN 18 mg/dL 05/08/2017 Metabolic Ord15 Creat 1.0 mg/dL 05/08/2017 Metabolic Ord15 B/C Ratio 18.8 Ratio 05/08/2017 Metabolic Ord15 eGFR 61 ml/min/1.73m2 05/08/2017 Metabolic Ord15 Osmo 265 mOsmo 05/08/2017 Metabolic Ord15 ANION GAP 13 05/08/2017 Metabolic Ord15 CALCIUM 8.8 mg/dL 05/08/2017 Sed Rate Ord21 ESR 15 mm/hr 04/14/2017 Vitamin D 25 Oh [id number] VITAMIN D, 25 HYDROXY 29.88 ng/mL Comp Metabolic Mlg523 NA 136 mEq/L 04/14/2017 Comp Metabolic Wns499 K 4.4 mEq/L 04/14/2017 Comp Metabolic Vsi809 CL 104 mEq/L 04/14/2017 Comp Metabolic Ain361 CO2 21.0 mEq/L 04/14/2017 Comp Metabolic Myd617 ANION GAP 15 04/14/2017 Comp Metabolic Gwy056 GLUCOSE 112 mg/dL 04/14/2017 Comp Metabolic Bar985 Creat 1.1 mg/dL 04/14/2017 Comp Metabolic Mii546 eGFR 51 ml/min/1.73m2 04/14/2017 Comp Metabolic Mtq895 BUN 16 mg/dL 04/14/2017 Comp Metabolic Abp436 B/C Ratio 14.3 Ratio 04/14/2017 Comp Metabolic Hyc829 CALCIUM 8.9 mg/dL 04/14/2017 Comp Metabolic Tlv143 ALK PHOS 39 U/L 04/14/2017 Comp Metabolic Tqk210 AST(SGOT) 24 U/L 04/14/2017 Comp Metabolic Tkc262 ALT(SGPT) 18 U/L 04/14/2017 Comp Metabolic Jkg159 BILI T 0.5 mg/dL 04/14/2017 Comp Metabolic Kks723 ALBUMIN 4.3 g/dL 04/14/2017 Comp Metabolic Pob766 TPRO 6.8 g/dL 04/14/2017 Comp Metabolic Odq100 GLOB 2.5 g/dL 04/14/2017 Comp Metabolic Zml493 A/G Ratio 1.7 Ratio 04/14/2017 Comp Metabolic Tow594 Osmo 274 mOsmo 04/14/2017 Cbc With Differential Ord2 WBC 7.45 K/ul 04/14/2017 Cbc With Differential Ord2 RBC 4.20 M/ul 04/14/2017 Cbc With Differential Ord2 HGB 13.4 g/dl 04/14/2017 Cbc With Differential Ord2 HCT 40.3 % 04/14/2017 Cbc With Differential Ord2 Neut% 70.8 % 04/14/2017 Cbc With Differential Ord2 Lymph% 19.7 % 04/14/2017 Cbc With Differential Ord2 MCV 96.0 fl 04/14/2017 Cbc With Differential Ord2 MCH 31.9 pg 04/14/2017 Cbc With Differential Ord2 Ashley% 9.1 % 04/14/2017 Cbc With Differential Ord2 MCHC 33.3 pg 04/14/2017 Cbc With Differential Ord2 Eos% 0.1 % 04/14/2017 Cbc With Differential Ord2 Baso% 0.3 % 04/14/2017 Cbc With Differential Ord2 PLT 207 K/ul 04/14/2017 Cbc With Differential Ord2 Neut ABS# 5.27 K/ul 04/14/2017 Cbc With Differential Ord2 RDW 13.3 % 04/14/2017 Cbc With Differential Ord2 Lymph ABS# 1.47 K/ul 04/14/2017 Cbc With Differential Ord2 Ashley ABS# 0.7 K/ul 04/14/2017 Cbc With Differential Ord2 Eos ABS# 0.0 K/ul 04/14/2017 Cbc With Differential Ord2 Baso ABS# 0.0 K/ul 04/14/2017 C-Reactive Protein Qnt Crqnt CRP 0.1 mg/dl 04/14/2017 Vitamin D 25 Oh [id number] VITAMIN D, 25 HYDROXY 36.00 ng/mL Sed Rate Ord21 ESR 16 mm/hr 02/09/2017 C-Reactive Protein Qnt Crqnt CRP 0.1 mg/dl 02/09/2017 Comp Metabolic Aee157 NA 135 mEq/L 02/09/2017 Comp Metabolic Moj541 K 4.4 mEq/L 02/09/2017 Comp Metabolic Fyl523 CL 102 mEq/L 02/09/2017 Comp Metabolic Svd874 CO2 23.0 mEq/L 02/09/2017 Comp Metabolic Dcj438 ANION GAP 14 02/09/2017 Comp Metabolic Ozr352 GLUCOSE 98 mg/dL 02/09/2017 Comp Metabolic Fob586 Creat 0.9 mg/dL 02/09/2017 Comp Metabolic Nrt138 eGFR 65 ml/min/1.73m2 02/09/2017 Comp Metabolic Roz338 BUN 18 mg/dL 02/09/2017 Comp Metabolic Wkh458 B/C Ratio 19.8 Ratio 02/09/2017 Comp Metabolic Wso665 CALCIUM 9.2 mg/dL 02/09/2017 Comp Metabolic Xbv630 ALK PHOS 42 U/L 02/09/2017 Comp Metabolic Ppt680 AST(SGOT) 24 U/L 02/09/2017 Comp Metabolic Dxy467 ALT(SGPT) 16 U/L 02/09/2017 Comp Metabolic Rcl679 BILI T 0.4 mg/dL 02/09/2017 Comp Metabolic Drn904 ALBUMIN 4.4 g/dL 02/09/2017 Comp Metabolic Ktu163 TPRO 7.0 g/dL 02/09/2017 Comp Metabolic Vpt596 GLOB 2.6 g/dL 02/09/2017 Comp Metabolic Pxz991 A/G Ratio 1.7 Ratio 02/09/2017 Comp Metabolic Pki855 Osmo 272 mOsmo 02/09/2017 Cbc With Differential Ord2 WBC 7.27 K/ul 02/09/2017 Cbc With Differential Ord2 RBC 4.19 M/ul 02/09/2017 Cbc With Differential Ord2 HGB 13.6 g/dl 02/09/2017 Cbc With Differential Ord2 Neut% 75.8 % 02/09/2017 Cbc With Differential Ord2 HCT 39.7 % 02/09/2017 Cbc With Differential Ord2 Lymph% 14.6 % 02/09/2017 Cbc With Differential Ord2 MCV 94.7 fl 02/09/2017 Cbc With Differential Ord2 MCH 32.5 pg 02/09/2017 Cbc With Differential Ord2 Ashley% 8.7 % 02/09/2017 Cbc With Differential Ord2 Eos% 0.6 % 02/09/2017 Cbc With Differential Ord2 MCHC 34.3 pg 02/09/2017 Cbc With Differential Ord2 Baso% 0.3 % 02/09/2017 Cbc With Differential Ord2 PLT 221 K/ul 02/09/2017 Cbc With Differential Ord2 Neut ABS# 5.52 K/ul 02/09/2017 Cbc With Differential Ord2 RDW 13.4 % 02/09/2017 Cbc With Differential Ord2 Lymph ABS# 1.06 K/ul 02/09/2017 Cbc With Differential Ord2 Ashley ABS# 0.6 K/ul 02/09/2017 Cbc With Differential Ord2 Eos ABS# 0.0 K/ul 02/09/2017 Cbc With Differential Ord2 Baso ABS# 0.0 K/ul 02/09/2017 %Hba1C Hvd389 % HbA1c 80546-3 6.1 % 05/20/2016 %Hba1C Rwg132 Gluc Ave 128 mg/dL 05/20/2016 Lipid Ord30 CHOL 212 mg/dL 05/20/2016 Lipid Ord30 HDL 52.0 mg/dl 05/20/2016 Lipid Ord30 TRIG 149 mg/dL 05/20/2016 Lipid Ord30 LDL 130 mg/dL 05/20/2016 Lipid Ord30 C/HDL 4.1 Ratio 05/20/2016 Vitamin D 25 Oh [id number] VITAMIN D, 25 HYDROXY 51.65 ng/mL C-Reactive Protein Qnt Crqnt CRP 0.1 mg/dl 04/21/2016 Sed Rate Ord21 ESR 26 mm/hr 04/21/2016 Bili D Ord93 BILI D 0.1 mg/dL 04/21/2016 Bili D Ord93 BILI I 0.4 mg/dL 04/21/2016 Cbc With Differential Ord2 WBC 6.49 K/ul 04/21/2016 Cbc With Differential Ord2 RBC 4.28 M/ul 04/21/2016 Cbc With Differential Ord2 HGB 13.7 g/dl 04/21/2016 Cbc With Differential Ord2 HCT 40.9 % 04/21/2016 Cbc With Differential Ord2 Neut% 68.1 % 04/21/2016 Cbc With Differential Ord2 MCV 95.6 fl 04/21/2016 Cbc With Differential Ord2 Lymph% 21.4 % 04/21/2016 Cbc With Differential Ord2 MCH 32.0 pg 04/21/2016 Cbc With Differential Ord2 Ashley% 9.1 % 04/21/2016 Cbc With Differential Ord2 MCHC 33.5 pg 04/21/2016 Cbc With Differential Ord2 Eos% 1.1 % 04/21/2016 Cbc With Differential Ord2 PLT 190 K/ul 04/21/2016 Cbc With Differential Ord2 Baso% 0.3 % 04/21/2016 Cbc With Differential Ord2 Neut ABS# 4.42 K/ul 04/21/2016 Cbc With Differential Ord2 RDW 13.3 % 04/21/2016 Cbc With Differential Ord2 Lymph ABS# 1.39 K/ul 04/21/2016 Cbc With Differential Ord2 Ashley ABS# 0.6 K/ul 04/21/2016 Cbc With Differential Ord2 Eos ABS# 0.1 K/ul 04/21/2016 Cbc With Differential Ord2 Baso ABS# 0.0 K/ul 04/21/2016 Comp Metabolic Hly095 NA 134 mEq/L 04/21/2016 Comp Metabolic Sea481 K 5.0 mEq/L 04/21/2016 Comp Metabolic Dql179 CL 103 mEq/L 04/21/2016 Comp Metabolic Ttc998 CO2 24.0 mEq/L 04/21/2016 Comp Metabolic Php288 ANION GAP 12 04/21/2016 Comp Metabolic Mty483 GLUCOSE 122 mg/dL 04/21/2016 Comp Metabolic Kft949 Creat 1.1 mg/dL 04/21/2016 Comp Metabolic Xrv730 eGFR 52 ml/min/1.73m2 04/21/2016 Comp Metabolic Djo196 BUN 24 mg/dL 04/21/2016 Comp Metabolic Chv887 B/C Ratio 21.6 Ratio 04/21/2016 Comp Metabolic Ofk205 CALCIUM 9.7 mg/dL 04/21/2016 Comp Metabolic Bnn577 ALK PHOS 51 U/L 04/21/2016 Comp Metabolic Kxt609 AST(SGOT) 23 U/L 04/21/2016 Comp Metabolic Jmb735 ALT(SGPT) 17 U/L 04/21/2016 Comp Metabolic Vhm491 BILI T 0.5 mg/dL 04/21/2016 Comp Metabolic Fds508 ALBUMIN 4.4 g/dL 04/21/2016 Comp Metabolic Nyz672 TPRO 7.3 g/dL 04/21/2016 Comp Metabolic Dup577 GLOB 2.9 g/dL 04/21/2016 Comp Metabolic Nzo153 A/G Ratio 1.5 Ratio 04/21/2016 Comp Metabolic Kjo505 Osmo 274 mOsmo 04/21/2016 Comp Metabolic Qzg489 NA 133 mEq/L 03/18/2016 Comp Metabolic Nxj491 K 4.9 mEq/L 03/18/2016 Comp Metabolic Udf464 CL 102 mEq/L 03/18/2016 Comp Metabolic Qzn068 CO2 25.0 mEq/L 03/18/2016 Comp Metabolic Yhb734 ANION GAP 11 03/18/2016 Comp Metabolic Rsp884 GLUCOSE 114 mg/dL 03/18/2016 Comp Metabolic Uyt664 Creat 1.1 mg/dL 03/18/2016 Comp Metabolic Evc231 eGFR 54 ml/min/1.73m2 03/18/2016 Comp Metabolic Juw768 BUN 23 mg/dL 03/18/2016 Comp Metabolic Fjo071 B/C Ratio 21.3 Ratio 03/18/2016 Comp Metabolic Gmy089 CALCIUM 9.7 mg/dL 03/18/2016 Comp Metabolic Emi694 ALK PHOS 54 U/L 03/18/2016 Comp Metabolic Fxc106 AST(SGOT) 21 U/L 03/18/2016 Comp Metabolic Khn550 ALT(SGPT) 15 U/L 03/18/2016 Comp Metabolic Ied845 BILI T 0.4 mg/dL 03/18/2016 Comp Metabolic Taa346 ALBUMIN 4.4 g/dL 03/18/2016 Comp Metabolic Ijy363 TPRO 7.4 g/dL 03/18/2016 Comp Metabolic Izd945 GLOB 3.0 g/dL 03/18/2016 Comp Metabolic Sko761 A/G Ratio 1.5 Ratio 03/18/2016 Comp Metabolic Vla763 Osmo 271 mOsmo 03/18/2016 Vitamin D 25 Oh Tvn9133 VITAMIN D, 25 HYDROXY 46.10 ng/mL Sed Rate Ord21 ESR 26 mm/hr 02/13/2016 Comp Metabolic Tfj711 NA 133 mEq/L 02/13/2016 Comp Metabolic Uzi888 K 4.8 mEq/L 02/13/2016 Comp Metabolic Vdb465 CL 104 mEq/L 02/13/2016 Comp Metabolic Beo922 CO2 23.0 mEq/L 02/13/2016 Comp Metabolic Ehg824 ANION GAP 11 02/13/2016 Comp Metabolic Qzx034 GLUCOSE 104 mg/dL 02/13/2016 Comp Metabolic Urz496 Creat 1.0 mg/dL 02/13/2016 Comp Metabolic Zew489 eGFR 56 ml/min/1.73m2 02/13/2016 Comp Metabolic Poi883 BUN 25 mg/dL 02/13/2016 Comp Metabolic Ckl525 B/C Ratio 24.0 Ratio 02/13/2016 Comp Metabolic Bis248 CALCIUM 9.1 mg/dL 02/13/2016 Comp Metabolic Eev523 ALK PHOS 43 U/L 02/13/2016 Comp Metabolic Wpt086 AST(SGOT) 21 U/L 02/13/2016 Comp Metabolic Bhi498 ALT(SGPT) 17 U/L 02/13/2016 Comp Metabolic Uql723 BILI T 0.4 mg/dL 02/13/2016 Comp Metabolic Ikt034 ALBUMIN 4.3 g/dL 02/13/2016 Comp Metabolic Uab313 TPRO 7.1 g/dL 02/13/2016 Comp Metabolic Jfs109 GLOB 2.9 g/dL 02/13/2016 Comp Metabolic Qqd786 A/G Ratio 1.5 Ratio 02/13/2016 Comp Metabolic Haw494 Osmo 271 mOsmo 02/13/2016 C-Reactive Protein Qnt Crqnt CRP 0.1 mg/dl 02/13/2016 Cbc With Differential Ord2 WBC 6.31 K/ul 02/13/2016 Cbc With Differential Ord2 RBC 4.31 M/ul 02/13/2016 Cbc With Differential Ord2 HGB 13.6 g/dl 02/13/2016 Cbc With Differential Ord2 Neut% 70.7 % 02/13/2016 Cbc With Differential Ord2 HCT 40.3 % 02/13/2016 Cbc With Differential Ord2 MCV 93.5 fl 02/13/2016 Cbc With Differential Ord2 Lymph% 18.5 % 02/13/2016 Cbc With Differential Ord2 MCH 31.6 pg 02/13/2016 Cbc With Differential Ord2 Ashley% 9.7 % 02/13/2016 Cbc With Differential Ord2 MCHC 33.7 pg 02/13/2016 Cbc With Differential Ord2 Eos% 0.8 % 02/13/2016 Cbc With Differential Ord2 Baso% 0.3 % 02/13/2016 Cbc With Differential Ord2 PLT 203 K/ul 02/13/2016 Cbc With Differential Ord2 RDW 13.6 % 02/13/2016 Cbc With Differential Ord2 Neut ABS# 4.46 K/ul 02/13/2016 Cbc With Differential Ord2 Lymph ABS# 1.17 K/ul 02/13/2016 Cbc With Differential Ord2 Ashley ABS# 0.6 K/ul 02/13/2016 Cbc With Differential Ord2 Eos ABS# 0.1 K/ul 02/13/2016 Cbc With Differential Ord2 Baso ABS# 0.0 K/ul 02/13/2016 Comp Metabolic Fak605 NA 132 mEq/L 10/08/2015 Comp Metabolic Bei471 K 4.7 mEq/L 10/08/2015 Comp Metabolic Rlw301 CL 101 mEq/L 10/08/2015 Comp Metabolic Xmx528 CO2 24.0 mEq/L 10/08/2015 Comp Metabolic Kzp386 ANION GAP 12 10/08/2015 Comp Metabolic Bct111 GLUCOSE 85 mg/dL 10/08/2015 Comp Metabolic Lkm191 Creat 0.9 mg/dL 10/08/2015 Comp Metabolic Zak800 eGFR 66 ml/min/1.73m2 10/08/2015 Comp Metabolic Zdk409 BUN 29 mg/dL 10/08/2015 Comp Metabolic Vdi187 B/C Ratio 32.2 Ratio 10/08/2015 Comp Metabolic Crn140 CALCIUM 9.1 mg/dL 10/08/2015 Comp Metabolic Rhz414 ALK PHOS 40 U/L 10/08/2015 Comp Metabolic Tqq503 AST(SGOT) 18 U/L 10/08/2015 Comp Metabolic Oqx413 ALT(SGPT) 14 U/L 10/08/2015 Comp Metabolic Rit465 BILI T 0.3 mg/dL 10/08/2015 Comp Metabolic Hfl009 ALBUMIN 4.1 g/dL 10/08/2015 Comp Metabolic Kzs333 TPRO 6.8 g/dL 10/08/2015 Comp Metabolic Mpd095 GLOB 2.7 g/dL 10/08/2015 Comp Metabolic Yiv870 A/G Ratio 1.5 Ratio 10/08/2015 Comp Metabolic Qyl380 Osmo 270 mOsmo 10/08/2015 C-Reactive Protein Qnt Crqnt CRP 1.0 mg/dl 10/08/2015 Cbc With Differential Ord2 WBC 7.45 K/ul 10/08/2015 Cbc With Differential Ord2 RBC 3.98 M/ul 10/08/2015 Cbc With Differential Ord2 HGB 12.5 g/dl 10/08/2015 Cbc With Differential Ord2 HCT 38.2 % 10/08/2015 Cbc With Differential Ord2 Neut% 72.2 % 10/08/2015 Cbc With Differential Ord2 MCV 96.0 fl 10/08/2015 Cbc With Differential Ord2 Lymph% 16.6 % 10/08/2015 Cbc With Differential Ord2 MCH 31.4 pg 10/08/2015 Cbc With Differential Ord2 Ashley% 10.5 % 10/08/2015 Cbc With Differential Ord2 MCHC 32.7 pg 10/08/2015 Cbc With Differential Ord2 Eos% 0.4 % 10/08/2015 Cbc With Differential Ord2 PLT 189 K/ul 10/08/2015 Cbc With Differential Ord2 Baso% 0.3 % 10/08/2015 Cbc With Differential Ord2 RDW 13.2 % 10/08/2015 Cbc With Differential Ord2 Neut ABS# 5.38 K/ul 10/08/2015 Cbc With Differential Ord2 Lymph ABS# 1.24 K/ul 10/08/2015 Cbc With Differential Ord2 Ashley ABS# 0.8 K/ul 10/08/2015 Cbc With Differential Ord2 Eos ABS# 0.0 K/ul 10/08/2015 Cbc With Differential Ord2 Baso ABS# 0.0 K/ul 10/08/2015 Vitamin D 25 Oh Hxn9287 VITAMIN D, 25 HYDROXY 54.28 ng/mL Sed Rate Ord21 ESR 20 mm/hr 10/08/2015 Free T4 Cfx031 FREE T4 0.80 ng/dL 09/26/2015 Tsh Ord6 hTSH II 1.72 uIU/mL 09/26/2015 Comp Metabolic Fdk045 NA 133 mEq/L 08/06/2015 Comp Metabolic Rds196 K 4.6 mEq/L 08/06/2015 Comp Metabolic Pxd909 CL 102 mEq/L 08/06/2015 Comp Metabolic Yzx862 CO2 24.0 mEq/L 08/06/2015 Comp Metabolic Vjh552 ANION GAP 12 08/06/2015 Comp Metabolic Uop199 GLUCOSE 105 mg/dL 08/06/2015 Comp Metabolic Cvl686 Creat 1.0 mg/dL 08/06/2015 Comp Metabolic Mtm494 eGFR 60 ml/min/1.73m2 08/06/2015 Comp Metabolic Ugj846 BUN 28 mg/dL 08/06/2015 Comp Metabolic Yri725 B/C Ratio 28.6 Ratio 08/06/2015 Comp Metabolic Kdk807 CALCIUM 9.2 mg/dL 08/06/2015 Comp Metabolic Xtf952 ALK PHOS 42 U/L 08/06/2015 Comp Metabolic Ttj065 AST(SGOT) 20 U/L 08/06/2015 Comp Metabolic Flw910 ALT(SGPT) 16 U/L 08/06/2015 Comp Metabolic Ueu861 BILI T 0.3 mg/dL 08/06/2015 Comp Metabolic Ypw569 ALBUMIN 4.3 g/dL 08/06/2015 Comp Metabolic Aqj989 TPRO 6.9 g/dL 08/06/2015 Comp Metabolic Gym977 GLOB 2.7 g/dL 08/06/2015 Comp Metabolic Lcz629 A/G Ratio 1.6 Ratio 08/06/2015 Comp Metabolic Bfw168 Osmo 272 mOsmo 08/06/2015 C-Reactive Protein Qnt Crqnt CRP 0.00 mg/dl 08/06/2015 Vitamin D 25 Oh Ubm9965 VITAMIN D, 25 HYDROXY 36.25 ng/mL Sed Rate Ord21 ESR 17 mm/hr 08/06/2015 Cbc With Differential Ord2 WBC 6.41 K/ul 08/06/2015 Cbc With Differential Ord2 RBC 3.98 M/ul 08/06/2015 Cbc With Differential Ord2 HGB 12.6 g/dl 08/06/2015 Cbc With Differential Ord2 HCT 37.5 % 08/06/2015 Cbc With Differential Ord2 Neut% 69.9 % 08/06/2015 Cbc With Differential Ord2 MCV 94.2 fl 08/06/2015 Cbc With Differential Ord2 Lymph% 20.4 % 08/06/2015 Cbc With Differential Ord2 Ashley% 8.9 % 08/06/2015 Cbc With Differential Ord2 MCH 31.7 pg 08/06/2015 Cbc With Differential Ord2 Eos% 0.6 % 08/06/2015 Cbc With Differential Ord2 MCHC 33.6 pg 08/06/2015 Cbc With Differential Ord2 PLT 216 K/ul 08/06/2015 Cbc With Differential Ord2 Baso% 0.2 % 08/06/2015 Cbc With Differential Ord2 Neut ABS# 4.48 K/ul 08/06/2015 Cbc With Differential Ord2 RDW 13.6 % 08/06/2015 Cbc With Differential Ord2 Lymph ABS# 1.31 K/ul 08/06/2015 Cbc With Differential Ord2 Ashley ABS# 0.6 K/ul 08/06/2015 Cbc With Differential Ord2 Eos ABS# 0.0 K/ul 08/06/2015 Cbc With Differential Ord2 Baso ABS# 0.0 K/ul 08/06/2015 Cbc With Differential Ord2 New Analyzer Notice Please note new ref ranges starting 04-25-2015 due to implemntation of new five part differential hematolgy analyzer. 08/06/2015 Vitamin D 25 Oh Dfp6770 VITAMIN D, 25 HYDROXY 47.62 ng/mL C-Reactive Protein Qnt Crqnt CRP 0.00 mg/dl 04/04/2015 Cbc With Differential Ord2 WBC 5.1 K/uL 04/04/2015 Cbc With Differential Ord2 LYM 1.4 K/uL 04/04/2015 Cbc With Differential Ord2 LYM% 27.6 % 04/04/2015 Cbc With Differential Ord2 NEUT/GRAN 3.4 K/uL 04/04/2015 Cbc With Differential Ord2 NEUT/GRAN % 66.4 % 04/04/2015 Cbc With Differential Ord2 MID 0.3 K/uL 04/04/2015 Cbc With Differential Ord2 MID% 6.0 % 04/04/2015 Cbc With Differential Ord2 RBC 4.58 M/uL 04/04/2015 Cbc With Differential Ord2 HGB 13.8 g/dL 04/04/2015 Cbc With Differential Ord2 HCT 44.9 % 04/04/2015 Cbc With Differential Ord2 MCV 98 fL 04/04/2015 Cbc With Differential Ord2 MCH 30 pg 04/04/2015 Cbc With Differential Ord2 MCHC 31 g/dL 04/04/2015 Cbc With Differential Ord2 PLT 243 K/uL 04/04/2015 Cbc With Differential Ord2 RDW 13.0 % 04/04/2015 Comp Metabolic Svx440 NA 132 mEq/L 04/04/2015 Comp Metabolic Xwj105 K 4.6 mEq/L 04/04/2015 Comp Metabolic Mbo477 CL 100 mEq/L 04/04/2015 Comp Metabolic Oet609 CO2 22.0 mEq/L 04/04/2015 Comp Metabolic Nwt269 ANION GAP 15 04/04/2015 Comp Metabolic Hxv616 GLUCOSE 118 mg/dL 04/04/2015 Comp Metabolic Cqm125 Creat 1.0 mg/dL 04/04/2015 Comp Metabolic Vrk933 eGFR 60 ml/min/1.73m2 04/04/2015 Comp Metabolic Vqb338 BUN 18 mg/dL 04/04/2015 Comp Metabolic Fqg218 B/C Ratio 18.4 Ratio 04/04/2015 Comp Metabolic Tqs827 CALCIUM 9.6 mg/dL 04/04/2015 Comp Metabolic Qxw801 ALK PHOS 63 U/L 04/04/2015 Comp Metabolic Heb947 AST(SGOT) 17 U/L 04/04/2015 Comp Metabolic Dhw511 ALT(SGPT) 13 U/L 04/04/2015 Comp Metabolic Oat618 BILI T 0.5 mg/dL 04/04/2015 Comp Metabolic Mpd845 ALBUMIN 4.6 g/dL 04/04/2015 Comp Metabolic Clo634 TPRO 7.4 g/dL 04/04/2015 Comp Metabolic Flm309 GLOB 2.8 g/dL 04/04/2015 Comp Metabolic Cqk855 A/G Ratio 1.6 Ratio 04/04/2015 Comp Metabolic Icg697 Osmo 268 mOsmo 04/04/2015 Bili D Ord93 BILI D 0.1 mg/dL 04/04/2015 Bili D Ord93 BILI I 0.4 mg/dL 04/04/2015 %Hba1C Sob657 % HbA1c 41802-1 5.7 % 04/04/2015 %Hba1C Sue897 Gluc Ave 117 mg/dL 04/04/2015 Sed Rate Ord21 ESR 16 mm/hr 04/04/2015 Lipid Ord30 CHOL 214 mg/dL 04/04/2015 Lipid Ord30 HDL 61.0 mg/dl 04/04/2015 Lipid Ord30 TRIG 155 mg/dL 04/04/2015 Lipid Ord30 LDL 122 mg/dL 04/04/2015 Lipid Ord30 C/HDL 3.5 Ratio 04/04/2015 %Hba1C Iff363 % HbA1c 04746-6 5.9 % 11/28/2014 %Hba1C Smr051 Gluc Ave 123 mg/dL 11/28/2014 C-Reactive Protein Qnt Crqnt CRP 0.00 mg/dl 11/27/2014 Lipid Ord30 CHOL 196 mg/dL 11/27/2014 Lipid Ord30 HDL 60.0 mg/dl 11/27/2014 Lipid Ord30 TRIG 158 mg/dL 11/27/2014 Lipid Ord30 LDL 104 mg/dL 11/27/2014 Lipid Ord30 C/HDL 3.3 Ratio 11/27/2014 Hepatic Krg674 ALBUMIN 4.4 g/dL 11/27/2014 Hepatic Tof376 TPRO 7.0 g/dL 11/27/2014 Hepatic Zsf157 GLOB 2.6 g/dL 11/27/2014 Hepatic Zcq143 A/G Ratio 1.7 Ratio 11/27/2014 Hepatic Ilt031 ALK PHOS 63 U/L 11/27/2014 Hepatic Tsu870 ALT(SGPT) 14 U/L 11/27/2014 Hepatic Tyh715 AST(SGOT) 19 U/L 11/27/2014 Hepatic Sso261 BILI T 0.4 mg/dL 11/27/2014 Hepatic Fqo656 BILI D 0.1 mg/dL 11/27/2014 Hepatic Lfg090 BILI I 0.3 mg/dL 11/27/2014 Sed Rate Ord21 ESR 19 mm/hr 11/27/2014 Metabolic Ord15 NA 135 mEq/L 11/27/2014 Metabolic Ord15 K 4.4 mEq/L 11/27/2014 Metabolic Ord15 CL 102 mEq/L 11/27/2014 Metabolic Ord15 CO2 28.0 mEq/L 11/27/2014 Metabolic Ord15 GLUCOSE 119 mg/dL 11/27/2014 Metabolic Ord15 BUN 17 mg/dL 11/27/2014 Metabolic Ord15 Creat 0.9 mg/dL 11/27/2014 Metabolic Ord15 B/C Ratio 19.3 Ratio 11/27/2014 Metabolic Ord15 eGFR 68 ml/min/1.73m2 11/27/2014 Metabolic Ord15 Osmo 273 mOsmo 11/27/2014 Metabolic Ord15 ANION GAP 9 11/27/2014 Metabolic Ord15 CALCIUM 9.7 mg/dL 11/27/2014 Cbc With Differential Ord2 WBC 5.9 K/uL 11/27/2014 Cbc With Differential Ord2 LYM 1.4 K/uL 11/27/2014 Cbc With Differential Ord2 LYM% 24.5 % 11/27/2014 Cbc With Differential Ord2 NEUT/GRAN 4.0 K/uL 11/27/2014 Cbc With Differential Ord2 NEUT/GRAN % 68.5 % 11/27/2014 Cbc With Differential Ord2 MID 0.4 K/uL 11/27/2014 Cbc With Differential Ord2 MID% 7.0 % 11/27/2014 Cbc With Differential Ord2 RBC 4.31 M/uL 11/27/2014 Cbc With Differential Ord2 HGB 13.2 g/dL 11/27/2014 Cbc With Differential Ord2 HCT 40.9 % 11/27/2014 Cbc With Differential Ord2 MCV 95 fL 11/27/2014 Cbc With Differential Ord2 MCH 31 pg 11/27/2014 Cbc With Differential Ord2 MCHC 32 g/dL 11/27/2014 Cbc With Differential Ord2 PLT 211 K/uL 11/27/2014 Cbc With Differential Ord2 RDW 14.8 % 11/27/2014 Review of Systems System Result Effective Dates Constitutional No recent illness 2016 Constitutional No anorexia 02/17/2017 Constitutional No night sweats 2016 Constitutional No chills 02/17/2017 Constitutional No diaphoresis 02/17/2017 Constitutional fatigue 02/17/2017 Constitutional No fever 02/17/2017 Constitutional No insomnia 02/17/2017 Constitutional No malaise 02/17/2017 Eyes No eye discharge 02/17/2017 Eyes No eye erythema 02/17/2017 Ears/Nose/Throat/Neck No headache 2016 Ears/Nose/Throat/Neck nasal allergies 10/2016 Ears/Nose/Throat/Neck nasal discharge 10/2016 Cardiovascular No chest pain/pressure 10/2016 Cardiovascular No dyspnea 02/17/2017 Respiratory No productive sputum 2016 Respiratory No cough 02/17/2017 Respiratory No dyspnea 02/17/2017 Gastrointestinal No abdominal pain 2016 Gastrointestinal No constipation 2016 Gastrointestinal No diarrhea 02/17/2017 Gastrointestinal No gastroesophageal reflux 02/17/2017 Genitourinary/Nephrology No dysuria 02/17 Musculoskeletal No joint complaint 2016 Musculoskeletal muscle weakness 2016 Dermatologic No rash 02/17/2017 Neurologic No alteration of consciousness 02/17/2017 Endocrine No dry or coarse skin 2016 Psychiatric No anxiety 02/17/2017 Neurologic weakness 02/17/2017 Constitutional No recent illness 2016 Constitutional No anorexia 01/02/2017 Constitutional No night sweats 2016 Constitutional No chills 01/02/2017 Constitutional No diaphoresis 01/02/2017 Constitutional fatigue 01/02/2017 Constitutional No fever 01/02/2017 Constitutional No insomnia 01/02/2017 Constitutional No malaise 01/02/2017 Constitutional No weight loss 01/02/2017 Constitutional No weight gain 01/02/2017 Eyes No eye discharge 01/02/2017 Eyes No eye erythema 01/02/2017 Ears/Nose/Throat/Neck No headache 2016 Ears/Nose/Throat/Neck nasal allergies Ears/Nose/Throat/Neck nasal discharge Cardiovascular No chest pain/pressure Cardiovascular No dyspnea 01/02/2017 Respiratory No productive sputum 2016 Respiratory No cough 01/02/2017 Respiratory No dyspnea 01/02/2017 Gastrointestinal No abdominal pain 2016 Gastrointestinal No constipation 2016 Gastrointestinal No diarrhea 01/02/2017 Gastrointestinal No gastroesophageal reflux 01/02/2017 Genitourinary/Nephrology No dysuria 01/02 Musculoskeletal No joint complaint 2016 Musculoskeletal muscle weakness 2016 Dermatologic No rash 01/02/2017 Neurologic No alteration of consciousness 01/02/2017 Endocrine No dry or coarse skin 2016 Constitutional recent illness 12/05/2016 Constitutional No chills 12/05/2016 Constitutional No diaphoresis 12/05/2016 Constitutional No fever 12/05/2016 Eyes No eye discharge 12/05/2016 Eyes No eye erythema 12/05/2016 Ears/Nose/Throat/Neck nasal allergies Ears/Nose/Throat/Neck nasal discharge Cardiovascular No chest pain/pressure Cardiovascular No dyspnea 12/05/2016 Respiratory No cough 12/05/2016 Respiratory No dyspnea 12/05/2016 Gastrointestinal No abdominal pain 2016 Musculoskeletal No joint complaint 2016 Dermatologic No rash 12/05/2016 Neurologic No alteration of consciousness 12/05/2016 Constitutional No anorexia 12/05/2016 Constitutional No night sweats 2016 Constitutional fatigue 12/05/2016 Constitutional No malaise 12/05/2016 Constitutional No weight loss 12/05/2016 Constitutional No weight gain 12/05/2016 Constitutional No insomnia 12/05/2016 Ears/Nose/Throat/Neck No headache 2016 Respiratory No productive sputum 2016 Gastrointestinal No constipation 2016 Gastrointestinal No diarrhea 12/05/2016 Gastrointestinal No gastroesophageal reflux 12/05/2016 Genitourinary/Nephrology No dysuria 12/05 Musculoskeletal muscle weakness 2016 Endocrine No dry or coarse skin 2016 Constitutional No recent illness 2016 Constitutional No chills 08/21/2016 Constitutional No diaphoresis 08/21/2016 Constitutional No fever 08/21/2016 Eyes No eye discharge 08/21/2016 Eyes No eye erythema 08/21/2016 Ears/Nose/Throat/Neck nasal allergies 02/2017 Ears/Nose/Throat/Neck nasal discharge 02/2017 Cardiovascular No chest pain/pressure 02/2017 Cardiovascular No dyspnea 08/21/2016 Respiratory No cough 08/21/2016 Gastrointestinal No abdominal pain 2016 Musculoskeletal No joint complaint 2016 Dermatologic No rash 08/21/2016 Neurologic No alteration of consciousness 08/21/2016 Respiratory No dyspnea 08/21/2016 Constitutional No recent illness 2016 Constitutional No anorexia 08/19/2016 Constitutional No night sweats 2016 Constitutional No chills 08/19/2016 Constitutional No diaphoresis 08/19/2016 Constitutional fatigue 08/19/2016 Constitutional No fever 08/19/2016 Constitutional malaise 08/19/2016 Eyes No eye discharge 08/19/2016 Eyes No eye erythema 08/19/2016 Ears/Nose/Throat/Neck No headache 2016 Ears/Nose/Throat/Neck nasal allergies 12/2016 Ears/Nose/Throat/Neck nasal discharge 12/2016 Ears/Nose/Throat/Neck No sore throat 12/2016 Ears/Nose/Throat/Neck No otalgia 2016 Ears/Nose/Throat/Neck No sinus congestion 08/19/2016 Cardiovascular No chest pain/pressure 12/2016 Cardiovascular No dyspnea 08/19/2016 Cardiovascular No edema 08/19/2016 Respiratory No cough 08/19/2016 Gastrointestinal No abdominal pain 2016 Gastrointestinal gastroesophageal reflux 08/19/2016 Genitourinary/Nephrology No dysuria 08/19 Musculoskeletal No joint complaint 2016 Dermatologic No rash 08/19/2016 Dermatologic No sores 08/19/2016 Neurologic No alteration of consciousness 08/19/2016 Neurologic dizziness 08/19/2016 Psychiatric No anxiety 08/19/2016 Psychiatric No depression 08/19/2016 Constitutional No recent illness 2016 Constitutional No chills 05/20/2016 Constitutional No diaphoresis 05/20/2016 Constitutional No fever 05/20/2016 Eyes No eye discharge 05/20/2016 Eyes No eye erythema 05/20/2016 Ears/Nose/Throat/Neck No headache 2016 Ears/Nose/Throat/Neck No nasal allergies 05/20/2016 Ears/Nose/Throat/Neck No nasal discharge 05/20/2016 Ears/Nose/Throat/Neck No sore throat 10/2016 Ears/Nose/Throat/Neck No otalgia 2016 Ears/Nose/Throat/Neck No sinus congestion 05/20/2016 Cardiovascular No chest pain/pressure 10/2016 Cardiovascular No dyspnea 05/20/2016 Cardiovascular No edema 05/20/2016 Respiratory No cough 05/20/2016 Gastrointestinal No abdominal pain 2016 Musculoskeletal No joint complaint 2016 Dermatologic No rash 05/20/2016 Dermatologic No sores 05/20/2016 Neurologic No alteration of consciousness 05/20/2016 Ears/Nose/Throat/Neck dizziness 2016 Respiratory No dyspnea 05/20/2016 Neurologic No mental status change 2016 Constitutional recent illness 01/23/2016 Constitutional No anorexia 01/23/2016 Constitutional No night sweats 2015 Constitutional No chills 01/23/2016 Constitutional No diaphoresis 01/23/2016 Constitutional fatigue 01/23/2016 Constitutional No fever 01/23/2016 Constitutional malaise 01/23/2016 Eyes No eye discharge 01/23/2016 Eyes No eye erythema 01/23/2016 Ears/Nose/Throat/Neck dizziness 2015 Ears/Nose/Throat/Neck No headache 2015 Ears/Nose/Throat/Neck nasal allergies 03/2016 Ears/Nose/Throat/Neck nasal discharge 03/2016 Ears/Nose/Throat/Neck No sore throat 03/2016 Ears/Nose/Throat/Neck No otalgia 2015 Ears/Nose/Throat/Neck No sinus congestion 01/23/2016 Cardiovascular No chest pain/pressure 03/2016 Cardiovascular No dyspnea 01/23/2016 Cardiovascular No edema 01/23/2016 Respiratory No cough 01/23/2016 Gastrointestinal No abdominal pain 2015 Gastrointestinal gastroesophageal reflux 01/23/2016 Genitourinary/Nephrology No dysuria 01/22 Musculoskeletal No joint complaint 2015 Dermatologic No rash 01/23/2016 Dermatologic No sores 01/23/2016 Neurologic No alteration of consciousness 01/23/2016 Neurologic dizziness 01/23/2016 Psychiatric No anxiety 01/23/2016 Psychiatric No depression 01/23/2016 Constitutional recent illness 09/26/2015 Constitutional No anorexia 09/26/2015 Constitutional No night sweats 2015 Constitutional No chills 09/26/2015 Constitutional No diaphoresis 09/26/2015 Constitutional fatigue 09/26/2015 Constitutional No fever 09/26/2015 Constitutional No insomnia 09/26/2015 Constitutional No malaise 09/26/2015 Eyes No eye discharge 09/26/2015 Eyes No eye erythema 09/26/2015 Ears/Nose/Throat/Neck dizziness 2015 Ears/Nose/Throat/Neck No headache 2015 Ears/Nose/Throat/Neck nasal allergies Ears/Nose/Throat/Neck No nasal discharge 09/26/2015 Ears/Nose/Throat/Neck No sore throat Ears/Nose/Throat/Neck No otalgia 2015 Ears/Nose/Throat/Neck No sinus congestion 09/26/2015 Cardiovascular No chest pain/pressure Cardiovascular No dyspnea 09/26/2015 Cardiovascular No edema 09/26/2015 Respiratory No cough 09/26/2015 Gastrointestinal No abdominal pain 2015 Gastrointestinal gastroesophageal reflux 09/26/2015 Genitourinary/Nephrology No dysuria 09/25 Musculoskeletal No joint complaint 2015 Dermatologic No rash 09/26/2015 Dermatologic No sores 09/26/2015 Neurologic No alteration of consciousness 09/26/2015 Neurologic dizziness 09/26/2015 Psychiatric No anxiety 09/26/2015 Psychiatric No depression 09/26/2015 Constitutional recent illness 08/23/2015 Constitutional No anorexia 08/23/2015 Constitutional No night sweats 2015 Constitutional No chills 08/23/2015 Constitutional No diaphoresis 08/23/2015 Constitutional fatigue 08/23/2015 Constitutional No fever 08/23/2015 Constitutional No insomnia 08/23/2015 Constitutional No malaise 08/23/2015 Eyes No eye discharge 08/23/2015 Eyes No eye erythema 08/23/2015 Ears/Nose/Throat/Neck dizziness 2015 Ears/Nose/Throat/Neck No headache 2015 Ears/Nose/Throat/Neck nasal allergies 03/2016 Ears/Nose/Throat/Neck No nasal discharge 08/23/2015 Ears/Nose/Throat/Neck No sore throat 03/2016 Ears/Nose/Throat/Neck No otalgia 2015 Ears/Nose/Throat/Neck No sinus congestion 08/23/2015 Cardiovascular No chest pain/pressure 03/2016 Cardiovascular No dyspnea 08/23/2015 Cardiovascular No edema 08/23/2015 Respiratory No cough 08/23/2015 Gastrointestinal No abdominal pain 2015 Gastrointestinal gastroesophageal reflux 08/23/2015 Genitourinary/Nephrology No dysuria 08/22 Musculoskeletal No joint complaint 2015 Dermatologic No rash 08/23/2015 Dermatologic No sores 08/23/2015 Neurologic No alteration of consciousness 08/23/2015 Neurologic dizziness 08/23/2015 Psychiatric No anxiety 08/23/2015 Psychiatric No depression 08/23/2015 Constitutional No recent illness 2015 Constitutional No night sweats 2015 Constitutional No chills 07/19/2015 Constitutional No diaphoresis 07/19/2015 Constitutional fatigue 07/19/2015 Constitutional No fever 07/19/2015 Constitutional No insomnia 07/19/2015 Constitutional No malaise 07/19/2015 Eyes No eye discharge 07/19/2015 Eyes No eye erythema 07/19/2015 Ears/Nose/Throat/Neck No dizziness 2015 Ears/Nose/Throat/Neck No headache 2015 Ears/Nose/Throat/Neck nasal allergies 10/2015 Ears/Nose/Throat/Neck No nasal discharge 07/19/2015 Ears/Nose/Throat/Neck No sore throat 10/2015 Ears/Nose/Throat/Neck No otalgia 2015 Ears/Nose/Throat/Neck No sinus congestion 07/19/2015 Cardiovascular No chest pain/pressure 10/2015 Cardiovascular No dyspnea 07/19/2015 Cardiovascular No edema 07/19/2015 Respiratory No cough 07/19/2015 Gastrointestinal No abdominal pain 2015 Gastrointestinal gastroesophageal reflux 07/19/2015 Genitourinary/Nephrology No dysuria 07/18 Musculoskeletal No joint complaint 2015 Dermatologic No rash 07/19/2015 Dermatologic No sores 07/19/2015 Neurologic No alteration of consciousness 07/19/2015 Psychiatric No anxiety 07/19/2015 Psychiatric No depression 07/19/2015 Respiratory No chest congestion 2015 Gastrointestinal No vomiting 07/19/2015 Gastrointestinal No nausea 07/19/2015 Constitutional recent illness 04/17/2015 Constitutional No anorexia 04/17/2015 Constitutional No night sweats 2015 Constitutional No chills 04/17/2015 Constitutional No diaphoresis 04/17/2015 Constitutional fatigue 04/17/2015 Constitutional No fever 04/17/2015 Constitutional No insomnia 04/17/2015 Constitutional No malaise 04/17/2015 Eyes No eye discharge 04/17/2015 Eyes No eye erythema 04/17/2015 Ears/Nose/Throat/Neck dizziness 2015 Ears/Nose/Throat/Neck No headache 2015 Ears/Nose/Throat/Neck nasal allergies 08/2015 Ears/Nose/Throat/Neck No nasal discharge 04/17/2015 Ears/Nose/Throat/Neck No otalgia 2015 Ears/Nose/Throat/Neck No sinus congestion 04/17/2015 Ears/Nose/Throat/Neck No sore throat 08/2015 Cardiovascular No chest pain/pressure 08/2015 Cardiovascular No dyspnea 04/17/2015 Cardiovascular No edema 04/17/2015 Respiratory No cough 04/17/2015 Gastrointestinal No abdominal pain 2015 Gastrointestinal gastroesophageal reflux 04/17/2015 Genitourinary/Nephrology No dysuria 04/17 Musculoskeletal No joint complaint 2015 Dermatologic No rash 04/17/2015 Dermatologic No sores 04/17/2015 Neurologic No alteration of consciousness 04/17/2015 Neurologic dizziness 04/17/2015 Psychiatric No anxiety 04/17/2015 Psychiatric No depression 04/17/2015 Constitutional recent illness 03/15/2015 Constitutional No anorexia 03/15/2015 Constitutional No night sweats 2014 Constitutional No chills 03/15/2015 Constitutional No diaphoresis 03/15/2015 Constitutional fatigue 03/15/2015 Constitutional No fever 03/15/2015 Constitutional No insomnia 03/15/2015 Constitutional No malaise 03/15/2015 Constitutional No weight loss 03/15/2015 Constitutional No weight gain 03/15/2015 Eyes No eye discharge 03/15/2015 Eyes No eye erythema 03/15/2015 Ears/Nose/Throat/Neck dizziness 2014 Ears/Nose/Throat/Neck No headache 2014 Ears/Nose/Throat/Neck No nasal discharge 03/15/2015 Ears/Nose/Throat/Neck nasal allergies 06/2014 Ears/Nose/Throat/Neck No otalgia 2014 Ears/Nose/Throat/Neck No sinus congestion 03/15/2015 Ears/Nose/Throat/Neck No sore throat 06/2014 Cardiovascular No chest pain/pressure 06/2014 Cardiovascular No dyspnea 03/15/2015 Cardiovascular No edema 03/15/2015 Respiratory No cough 03/15/2015 Gastrointestinal gastroesophageal reflux 03/15/2015 Gastrointestinal No abdominal pain 2014 Genitourinary/Nephrology No dysuria 03/15 Musculoskeletal No joint complaint 2014 Dermatologic No rash 03/15/2015 Dermatologic No sores 03/15/2015 Neurologic No alteration of consciousness 03/15/2015 Neurologic dizziness 03/15/2015 Constitutional No recent illness 2014 Constitutional No anorexia 02/06/2015 Constitutional No night sweats 2014 Constitutional No chills 02/06/2015 Constitutional No diaphoresis 02/06/2015 Constitutional No fatigue 02/06/2015 Constitutional No fever 02/06/2015 Constitutional No insomnia 02/06/2015 Constitutional No malaise 02/06/2015 Constitutional No weight loss 02/06/2015 Constitutional No weight gain 02/06/2015 Eyes No eye discharge 02/06/2015 Eyes No eye erythema 02/06/2015 Ears/Nose/Throat/Neck nasal allergies Ears/Nose/Throat/Neck nasal discharge Ears/Nose/Throat/Neck No otalgia 2014 Ears/Nose/Throat/Neck No sinus congestion 02/06/2015 Ears/Nose/Throat/Neck No sore throat Cardiovascular No chest pain/pressure Cardiovascular No dyspnea 02/06/2015 Cardiovascular edema 02/06/2015 Respiratory No productive sputum 2014 Respiratory No chest congestion 2014 Respiratory cough 02/06/2015 Gastrointestinal No abdominal pain 2014 Gastrointestinal No constipation 2014 Gastrointestinal No diarrhea 02/06/2015 Genitourinary/Nephrology No dysuria 02/06 Musculoskeletal No joint complaint 2014 Dermatologic No rash 02/06/2015 Dermatologic No sores 02/06/2015 Neurologic No alteration of consciousness 02/06/2015 Gastrointestinal gastroesophageal reflux 02/06/2015 Constitutional No recent illness 2014 Constitutional No chills 12/13/2014 Constitutional fatigue 12/13/2014 Constitutional No fever 12/13/2014 Ears/Nose/Throat/Neck No dizziness 2014 Ears/Nose/Throat/Neck No dysphagia 2014 Ears/Nose/Throat/Neck No nasal allergies 12/13/2014 Ears/Nose/Throat/Neck No sore throat 05/2014 Ears/Nose/Throat/Neck No postnasal drip 12/13/2014 Cardiovascular No chest pain/pressure 05/2014 Cardiovascular No dyspnea 12/13/2014 Cardiovascular No edema 12/13/2014 Cardiovascular No exercise intolerance Cardiovascular No fatigue 12/13/2014 Cardiovascular No near-syncope/dizziness 12/13/2014 Respiratory No chest tightness 2014 Respiratory No cough 12/13/2014 Respiratory No dyspnea 12/13/2014 Respiratory No pedal edema 12/13/2014 Gastrointestinal No abdominal pain 2014 Gastrointestinal No constipation 2014 Gastrointestinal No diarrhea 12/13/2014 Gastrointestinal No gastroesophageal reflux 12/13/2014 Gastrointestinal No nausea 12/13/2014 Gastrointestinal No vomiting 12/13/2014 Genitourinary/Nephrology No dysuria 12/13 Genitourinary/Nephrology No nocturia 05/2014 Genitourinary/Nephrology No urinary incontinence 12/13/2014 Musculoskeletal stiffness 12/13/2014 Musculoskeletal No swelling 12/13/2014 Musculoskeletal arthralgia(s) 12/13/2014 Musculoskeletal No muscle weakness 2014 Musculoskeletal No myalgias 12/13/2014 Dermatologic No rash 12/13/2014 Dermatologic No sores 12/13/2014 Dermatologic No scar 12/13/2014 Neurologic No dizziness 12/13/2014 Neurologic No headache 12/13/2014 Neurologic No neck pain 12/13/2014 Neurologic No syncope 12/13/2014 Psychiatric No anxiety 12/13/2014 Psychiatric No depression 12/13/2014 Constitutional No recent illness 2014 Constitutional No chills 10/11/2014 Constitutional fatigue 10/11/2014 Constitutional No fever 10/11/2014 Constitutional No insomnia 10/11/2014 Constitutional No malaise 10/11/2014 Eyes No blindness 10/11/2014 Eyes No vision change 10/11/2014 Ears/Nose/Throat/Neck No dental pain 04/2014 Ears/Nose/Throat/Neck No dizziness 2014 Ears/Nose/Throat/Neck No dysphagia 2014 Ears/Nose/Throat/Neck No headache 2014 Ears/Nose/Throat/Neck No hearing loss 04/2014 Ears/Nose/Throat/Neck No nasal allergies 10/11/2014 Ears/Nose/Throat/Neck No sore throat 04/2014 Ears/Nose/Throat/Neck No postnasal drip 10/11/2014 Ears/Nose/Throat/Neck No sinus congestion 10/11/2014 Cardiovascular No chest pain/pressure 04/2014 Cardiovascular No dyspnea 10/11/2014 Cardiovascular No edema 10/11/2014 Cardiovascular No exercise intolerance Cardiovascular No fatigue 10/11/2014 Cardiovascular No near-syncope/dizziness 10/11/2014 Respiratory No chest tightness 2014 Respiratory No cough 10/11/2014 Respiratory No dyspnea 10/11/2014 Respiratory No pedal edema 10/11/2014 Gastrointestinal No abdominal pain 2014 Gastrointestinal No constipation 2014 Gastrointestinal No diarrhea 10/11/2014 Gastrointestinal No gastroesophageal reflux 10/11/2014 Gastrointestinal No nausea 10/11/2014 Gastrointestinal No vomiting 10/11/2014 Genitourinary/Nephrology No dysuria 10/11 Genitourinary/Nephrology No nocturia 04/2014 Genitourinary/Nephrology No urinary incontinence 10/11/2014 Musculoskeletal stiffness 10/11/2014 Musculoskeletal No swelling 10/11/2014 Musculoskeletal No muscle weakness 2014 Musculoskeletal No myalgias 10/11/2014 Dermatologic No rash 10/11/2014 Dermatologic No sores 10/11/2014 Dermatologic No scar 10/11/2014 Neurologic No dizziness 10/11/2014 Neurologic No headache 10/11/2014 Neurologic No neck pain 10/11/2014 Neurologic No syncope 10/11/2014 Psychiatric No anxiety 10/11/2014 Psychiatric No depression 10/11/2014 Musculoskeletal arthralgia(s) 10/11/2014 Physical Exam Exam Name System Name Item Name Status Result Effective Dates Notes Full Exam - General 1994 Constitutional general appearance Overall: well developed 02/17/2017 None Full Exam - General 1994 Constitutional general appearance Overall: in no acute distress 02/17/2017 None Full Exam - General 1994 Constitutional general appearance Overall: well nourished 02/17/2017 None Full Exam - General 1994 Constitutional general appearance Hygiene/Attention to Grooming: good hygiene 02/17/2017 None Full Exam - General 1994 Constitutional general appearance Assistive Device: cane 02/17/2017 None Full Exam - General 1994 Eyes conjunctiva /eyelids Overall: conjunctiva clear 02/17/2017 None Full Exam - General 1994 Eyes conjunctiva /eyelids Overall: eyelids normal 02/17/2017 None Full Exam - General 1994 Ears/Nose/Throat lips/teeth/gingiva Overall: benign lips 02/17/2017 None Full Exam - General 1994 Ears/Nose/Throat oral cavity/pharynx/larynx Overall: oral mucosa clear 02/17/2017 None Full Exam - General 1994 Respiratory auscultation Overall: breath sounds clear bilaterally 02/17/2017 None Full Exam - General 1994 Respiratory respiratory effort/rhythm Overall: no retractions 02/17/2017 None Full Exam - General 1994 Respiratory respiratory effort/rhythm Overall: normal rate 02/17/2017 None Full Exam - General 1994 Cardiovascular auscultation of heart Overall: regular rate 02/17/2017 None Full Exam - General 1994 Cardiovascular auscultation of heart Overall: normal heart sounds 02/17/2017 None Full Exam - General 1994 Abdomen abdominal exam Overall: no tenderness 02/17/2017 None Full Exam - General 1994 Abdomen abdominal exam Overall: normal bowel sounds 02/17/2017 None Full Exam - General 1994 Musculoskeletal spine, ribs and pelvis Overall: good posture 02/17/2017 None Full Exam - General 1994 Musculoskeletal head and neck Overall: head atraumatic 02/17/2017 None Full Exam - General 1994 Integument inspection of skin Overall: few scattered moles, no gross abnormalities 02/17/2017 None Full Exam - General 1994 Neurologic cranial nerves Overall: crainial nerves 2 - 12 grossly intact 02/17/2017 None Full Exam - General 1994 Psychiatric orientation/consciousness Overall: oriented to person, place and time 02/17/2017 None Full Exam - General 1994 Psychiatric mood and affect Overall: normal mood and affect 02/17/2017 None Full Exam - General 1994 Constitutional general appearance Overall: well developed 01/02/2017 None Full Exam - General 1994 Constitutional general appearance Overall: in no acute distress 01/02/2017 None Full Exam - General 1994 Constitutional general appearance Overall: well nourished 01/02/2017 None Full Exam - General 1994 Constitutional general appearance Hygiene/Attention to Grooming: good hygiene 01/02/2017 None Full Exam - General 1994 Eyes conjunctiva /eyelids Overall: conjunctiva clear 01/02/2017 None Full Exam - General 1994 Eyes conjunctiva /eyelids Overall: eyelids normal 01/02/2017 None Full Exam - General 1994 Ears/Nose/Throat lips/teeth/gingiva Overall: benign lips 01/02/2017 None Full Exam - General 1994 Ears/Nose/Throat oral cavity/pharynx/larynx Overall: oral mucosa clear 01/02/2017 None Full Exam - General 1994 Respiratory auscultation Overall: breath sounds clear bilaterally 01/02/2017 None Full Exam - General 1994 Respiratory respiratory effort/rhythm Overall: no retractions 01/02/2017 None Full Exam - General 1994 Respiratory respiratory effort/rhythm Overall: normal rate 01/02/2017 None Full Exam - General 1994 Cardiovascular auscultation of heart Overall: regular rate 01/02/2017 None Full Exam - General 1994 Cardiovascular auscultation of heart Overall: normal heart sounds 01/02/2017 None Full Exam - General 1994 Abdomen abdominal exam Overall: no tenderness 01/02/2017 None Full Exam - General 1994 Abdomen abdominal exam Overall: normal bowel sounds 01/02/2017 None Full Exam - General 1994 Musculoskeletal spine, ribs and pelvis Overall: good posture 01/02/2017 None Full Exam - General 1994 Musculoskeletal head and neck Overall: head atraumatic 01/02/2017 None Full Exam - General 1994 Integument inspection of skin Overall: few scattered moles, no gross abnormalities 01/02/2017 None Full Exam - General 1994 Neurologic cranial nerves Overall: crainial nerves 2 - 12 grossly intact 01/02/2017 None Full Exam - General 1994 Psychiatric orientation/consciousness Overall: oriented to person, place and time 01/02/2017 None Full Exam - General 1994 Psychiatric mood and affect Overall: normal mood and affect 01/02/2017 None Full Exam - General 1994 Constitutional general appearance Assistive Device: cane 01/02/2017 None Full Exam - General 1994 Constitutional general appearance Overall: well developed 12/05/2016 None Full Exam - General 1994 Constitutional general appearance Overall: in no acute distress 12/05/2016 None Full Exam - General 1994 Constitutional general appearance Overall: well nourished 12/05/2016 None Full Exam - General 1994 Constitutional general appearance Hygiene/Attention to Grooming: good hygiene 12/05/2016 None Full Exam - General 1994 Eyes conjunctiva /eyelids Overall: conjunctiva clear 12/05/2016 None Full Exam - General 1994 Eyes conjunctiva /eyelids Overall: eyelids normal 12/05/2016 None Full Exam - General 1994 Ears/Nose/Throat lips/teeth/gingiva Overall: benign lips 12/05/2016 None Full Exam - General 1994 Ears/Nose/Throat oral cavity/pharynx/larynx Overall: oral mucosa clear 12/05/2016 None Full Exam - General 1994 Respiratory auscultation Overall: breath sounds clear bilaterally 12/05/2016 None Full Exam - General 1994 Respiratory respiratory effort/rhythm Overall: no retractions 12/05/2016 None Full Exam - General 1994 Respiratory respiratory effort/rhythm Overall: normal rate 12/05/2016 None Full Exam - General 1994 Cardiovascular auscultation of heart Overall: regular rate 12/05/2016 None Full Exam - General 1994 Cardiovascular auscultation of heart Overall: normal heart sounds 12/05/2016 None Full Exam - General 1994 Musculoskeletal spine, ribs and pelvis Overall: good posture 12/05/2016 None Full Exam - General 1994 Musculoskeletal head and neck Overall: head atraumatic 12/05/2016 None Full Exam - General 1994 Neurologic cranial nerves Overall: crainial nerves 2 - 12 grossly intact 12/05/2016 None Full Exam - General 1994 Psychiatric orientation/consciousness Overall: oriented to person, place and time 12/05/2016 None Full Exam - General 1994 Psychiatric mood and affect Overall: normal mood and affect 12/05/2016 None Full Exam - General 1994 Constitutional general appearance Assistive Device: walker 12/05/2016 None Full Exam - General 1994 Abdomen abdominal exam Overall: normal bowel sounds 12/05/2016 None Full Exam - General 1994 Abdomen abdominal exam Overall: no tenderness 12/05/2016 None Full Exam - General 1994 Integument inspection of skin Overall: few scattered moles, no gross abnormalities 12/05/2016 None Full Exam - General 1994 Constitutional general appearance Hygiene/Attention to Grooming: good hygiene 08/21/2016 None Full Exam - General 1994 Eyes conjunctiva /eyelids Overall: conjunctiva clear 08/21/2016 None Full Exam - General 1994 Eyes conjunctiva /eyelids Overall: eyelids normal 08/21/2016 None Full Exam - General 1994 Ears/Nose/Throat lips/teeth/gingiva Overall: benign lips 08/21/2016 None Full Exam - General 1994 Ears/Nose/Throat oral cavity/pharynx/larynx Overall: oral mucosa clear 08/21/2016 None Full Exam - General 1994 Respiratory auscultation Overall: breath sounds clear bilaterally 08/21/2016 None Full Exam - General 1994 Respiratory respiratory effort/rhythm Overall: no retractions 08/21/2016 None Full Exam - General 1994 Respiratory respiratory effort/rhythm Overall: normal rate 08/21/2016 None Full Exam - General 1994 Cardiovascular auscultation of heart Overall: regular rate 08/21/2016 None Full Exam - General 1994 Cardiovascular auscultation of heart Overall: normal heart sounds 08/21/2016 None Full Exam - General 1994 Musculoskeletal spine, ribs and pelvis Overall: good posture 08/21/2016 None Full Exam - General 1994 Musculoskeletal head and neck Overall: head atraumatic 08/21/2016 None Full Exam - General 1994 Neurologic cranial nerves Overall: crainial nerves 2 - 12 grossly intact 08/21/2016 None Full Exam - General 1994 Psychiatric orientation/consciousness Overall: oriented to person, place and time 08/21/2016 None Full Exam - General 1994 Psychiatric mood and affect Overall: normal mood and affect 08/21/2016 None Full Exam - General 1994 Constitutional general appearance Overall: in no acute distress 08/21/2016 None Full Exam - General 1994 Constitutional general appearance Overall: well developed 08/21/2016 None Full Exam - General 1994 Constitutional general appearance Overall: well nourished 08/21/2016 None Full Exam - General 1994 Constitutional general appearance Development: well developed 08/19/2016 None Full Exam - General 1994 Constitutional general appearance Development: appears stated age 2508/19/2016 None Full Exam - General 1994 Constitutional general appearance Hygiene/Attention to Grooming: good hygiene 08/19/2016 None Full Exam - General 1994 Eyes conjunctiva /eyelids Overall: conjunctiva clear 08/19/2016 None Full Exam - General 1994 Eyes conjunctiva /eyelids Overall: cornea clear 08/19/2016 None Full Exam - General 1994 Eyes conjunctiva /eyelids Overall: eyelids normal 08/19/2016 None Full Exam - General 1994 Eyes pupils and irises Overall: pupils equal, round, reactive to light and accomodation 08/19/2016 None Full Exam - General 1994 Ears/Nose/Throat otoscopic exam Overall: external auditory canals clear 08/19/2016 None Full Exam - General 1994 Ears/Nose/Throat otoscopic exam Overall: tympanic membranes clear 08/19/2016 None Full Exam - General 1994 Ears/Nose/Throat lips/teeth/gingiva Overall: benign lips 08/19/2016 None Full Exam - General 1994 Ears/Nose/Throat lips/teeth/gingiva Overall: normal dentition 08/19/2016 None Full Exam - General 1994 Ears/Nose/Throat oral cavity/pharynx/larynx Overall: oral mucosa clear 08/19/2016 None Full Exam - General 1994 Ears/Nose/Throat oral cavity/pharynx/larynx Overall: oropharyngeal mucosa clear 08/19/2016 None Full Exam - General 1994 Ears/Nose/Throat oral cavity/pharynx/larynx Overall: hypopharynx benign 08/19/2016 None Full Exam - General 1994 Ears/Nose/Throat oral cavity/pharynx/larynx Overall: no masses 08/19/2016 None Full Exam - General 1994 Respiratory auscultation Overall: breath sounds clear bilaterally 08/19/2016 None Full Exam - General 1994 Respiratory respiratory effort/rhythm Overall: no retractions 08/19/2016 None Full Exam - General 1994 Respiratory respiratory effort/rhythm Overall: normal rate 08/19/2016 None Full Exam - General 1994 Cardiovascular extremities Edema present: severity 1+ - 4 +: trace 08/19/2016 None Full Exam - General 1994 Cardiovascular auscultation of heart Overall: regular rate 08/19/2016 None Full Exam - General 1994 Cardiovascular auscultation of heart Overall: normal heart sounds 08/19/2016 None Full Exam - General 1994 Abdomen abdominal exam Overall: no tenderness 08/19/2016 None Full Exam - General 1994 Abdomen abdominal exam Overall: normal bowel sounds 08/19/2016 None Full Exam - General 1994 Lymphatic neck nodes Overall: anterior cervical chain benign 08/19/2016 None Full Exam - General 1994 Lymphatic neck nodes Overall: posterior cervical chain benign 08/19/2016 None Full Exam - General 1994 Musculoskeletal spine, ribs and pelvis Overall: spine benign 08/19/2016 None Full Exam - General 1994 Musculoskeletal spine, ribs and pelvis Overall: sacroiliac joint benign 08/19/2016 None Full Exam - General 1994 Musculoskeletal spine, ribs and pelvis Overall: good posture 08/19/2016 None Full Exam - General 1994 Musculoskeletal head and neck Overall: head atraumatic 08/19/2016 None Full Exam - General 1994 Musculoskeletal head and neck Overall: cervical spine benign 08/19/2016 None Full Exam - General 1994 Integument inspection of skin Rash/Lesions: patch 08/19/2016 on left breast - inner upper quadrant - irritated lesion about 0.5cm in size - treated with cryotherapy today Full Exam - General 1994 Neurologic deep tendon reflexes Overall: deep tendon reflexes intact 08/19/2016 None Full Exam - General 1994 Neurologic cranial nerves Overall: crainial nerves 2 - 12 grossly intact 08/19/2016 None Full Exam - General 1994 Psychiatric orientation/consciousness Overall: oriented to person, place and time 08/19/2016 None Full Exam - General 1994 Psychiatric mood and affect Overall: normal mood and affect 08/19/2016 None Full Exam - General 1994 Constitutional general appearance Hygiene/Attention to Grooming: good hygiene 05/20/2016 None Full Exam - General 1994 Eyes conjunctiva /eyelids Overall: conjunctiva clear 05/20/2016 None Full Exam - General 1994 Eyes conjunctiva /eyelids Overall: eyelids normal 05/20/2016 None Full Exam - General 1994 Eyes pupils and irises Overall: pupils equal, round, reactive to light and accomodation 05/20/2016 None Full Exam - General 1994 Ears/Nose/Throat otoscopic exam Overall: external auditory canals clear 05/20/2016 None Full Exam - General 1994 Ears/Nose/Throat otoscopic exam Overall: tympanic membranes clear 05/20/2016 None Full Exam - General 1994 Ears/Nose/Throat lips/teeth/gingiva Overall: benign lips 05/20/2016 None Full Exam - General 1995 Ears/Nose/Throat lips/teeth/gingiva Overall: normal dentition 05/20/2016 None Full Exam - General 1995 Ears/Nose/Throat oral cavity/pharynx/larynx Overall: oral mucosa clear 05/20/2016 None Full Exam - General 1995 Ears/Nose/Throat oral cavity/pharynx/larynx Overall: oropharyngeal mucosa clear 05/20/2016 None Full Exam - General 1994 Ears/Nose/Throat oral cavity/pharynx/larynx Overall: no masses 05/20/2016 None Full Exam - General 1994 Respiratory auscultation Overall: breath sounds clear bilaterally 05/20/2016 None Full Exam - General 1994 Respiratory respiratory effort/rhythm Overall: no retractions 05/20/2016 None Full Exam - General 1994 Respiratory respiratory effort/rhythm Overall: normal rate 05/20/2016 None Full Exam - General 1994 Cardiovascular auscultation of heart Overall: regular rate 05/20/2016 None Full Exam - General 1994 Cardiovascular auscultation of heart Overall: normal heart sounds 05/20/2016 None Full Exam - General 1994 Abdomen abdominal exam Overall: normal bowel sounds 05/20/2016 None Full Exam - General 1994 Lymphatic neck nodes Overall: anterior cervical chain benign 05/20/2016 None Full Exam - General 1994 Lymphatic neck nodes Overall: posterior cervical chain benign 05/20/2016 None Full Exam - General 1994 Musculoskeletal spine, ribs and pelvis Overall: good posture 05/20/2016 None Full Exam - General 1994 Musculoskeletal head and neck Overall: head atraumatic 05/20/2016 None Full Exam - General 1994 Neurologic cranial nerves Overall: crainial nerves 2 - 12 grossly intact 05/20/2016 None Full Exam - General 1994 Psychiatric orientation/consciousness Overall: oriented to person, place and time 05/20/2016 None Full Exam - General 1994 Psychiatric mood and affect Overall: normal mood and affect 05/20/2016 None Full Exam - General 1994 Constitutional general appearance Overall: well developed 05/20/2016 None Full Exam - General 1994 Constitutional general appearance Overall: in no acute distress 05/20/2016 None Full Exam - General 1994 Constitutional general appearance Overall: well nourished 05/20/2016 None Full Exam - General 1994 Cardiovascular extremities Overall: no clubbing 05/20/2016 None Full Exam - General 1994 Musculoskeletal gait and station Overall: normal gait 05/20/2016 None Full Exam - General 1994 Musculoskeletal gait and station Overall: normal station 05/20/2016 None Full Exam - General 1994 Psychiatric appearance Overall: well-groomed, good eye contact 05/20/2016 None Full Exam - General 1994 Constitutional general appearance Development: well developed 01/23/2016 None Full Exam - General 1994 Constitutional general appearance Development: appears stated age 1001/23/2016 None Full Exam - General 1994 Constitutional general appearance Hygiene/Attention to Grooming: good hygiene 01/23/2016 None Full Exam - General 1994 Eyes conjunctiva /eyelids Overall: conjunctiva clear 01/23/2016 None Full Exam - General 1994 Eyes conjunctiva /eyelids Overall: cornea clear 01/23/2016 None Full Exam - General 1994 Eyes conjunctiva /eyelids Overall: eyelids normal 01/23/2016 None Full Exam - General 1994 Eyes pupils and irises Overall: pupils equal, round, reactive to light and accomodation 01/23/2016 None Full Exam - General 1994 Ears/Nose/Throat otoscopic exam Overall: external auditory canals clear 01/23/2016 None Full Exam - General 1994 Ears/Nose/Throat otoscopic exam Overall: tympanic membranes clear 01/23/2016 None Full Exam - General 1994 Ears/Nose/Throat lips/teeth/gingiva Overall: benign lips 01/23/2016 None Full Exam - General 1994 Ears/Nose/Throat lips/teeth/gingiva Overall: normal dentition 01/23/2016 None Full Exam - General 1994 Ears/Nose/Throat oral cavity/pharynx/larynx Overall: oral mucosa clear 01/23/2016 None Full Exam - General 1994 Ears/Nose/Throat oral cavity/pharynx/larynx Overall: oropharyngeal mucosa clear 01/23/2016 None Full Exam - General 1994 Ears/Nose/Throat oral cavity/pharynx/larynx Overall: hypopharynx benign 01/23/2016 None Full Exam - General 1994 Ears/Nose/Throat oral cavity/pharynx/larynx Overall: no masses 01/23/2016 None Full Exam - General 1994 Respiratory auscultation Overall: breath sounds clear bilaterally 01/23/2016 None Full Exam - General 1994 Respiratory respiratory effort/rhythm Overall: no retractions 01/23/2016 None Full Exam - General 1994 Respiratory respiratory effort/rhythm Overall: normal rate 01/23/2016 None Full Exam - General 1994 Cardiovascular extremities Edema present: severity 1+ - 4 +: trace 01/23/2016 None Full Exam - General 1994 Cardiovascular auscultation of heart Overall: regular rate 01/23/2016 None Full Exam - General 1994 Cardiovascular auscultation of heart Overall: normal heart sounds 01/23/2016 None Full Exam - General 1994 Abdomen abdominal exam Overall: no tenderness 01/23/2016 None Full Exam - General 1994 Abdomen abdominal exam Overall: normal bowel sounds 01/23/2016 None Full Exam - General 1994 Lymphatic neck nodes Overall: anterior cervical chain benign 01/23/2016 None Full Exam - General 1994 Lymphatic neck nodes Overall: posterior cervical chain benign 01/23/2016 None Full Exam - General 1994 Musculoskeletal spine, ribs and pelvis Overall: spine benign 01/23/2016 None Full Exam - General 1994 Musculoskeletal spine, ribs and pelvis Overall: sacroiliac joint benign 01/23/2016 None Full Exam - General 1994 Musculoskeletal spine, ribs and pelvis Overall: good posture 01/23/2016 None Full Exam - General 1994 Musculoskeletal head and neck Overall: head atraumatic 01/23/2016 None Full Exam - General 1994 Musculoskeletal head and neck Overall: cervical spine benign 01/23/2016 None Full Exam - General 1994 Integument inspection of skin Rash/Lesions: patch 01/23/2016 on left breast - inner upper quadrant - irritated lesion about 0.5cm in size - treated with cryotherapy today Full Exam - General 1994 Neurologic deep tendon reflexes Overall: deep tendon reflexes intact 01/23/2016 None Full Exam - General 1994 Neurologic cranial nerves Overall: crainial nerves 2 - 12 grossly intact 01/23/2016 None Full Exam - General 1994 Psychiatric orientation/consciousness Overall: oriented to person, place and time 01/23/2016 None Full Exam - General 1994 Psychiatric mood and affect Overall: normal mood and affect 01/23/2016 None Full Exam - General 1994 Constitutional general appearance Development: well developed 09/26/2015 None Full Exam - General 1994 Constitutional general appearance Development: appears stated age 0609/26/2015 None Full Exam - General 1994 Constitutional general appearance Hygiene/Attention to Grooming: good hygiene 09/26/2015 None Full Exam - General 1994 Eyes conjunctiva /eyelids Overall: conjunctiva clear 09/26/2015 None Full Exam - General 1994 Eyes conjunctiva /eyelids Overall: cornea clear 09/26/2015 None Full Exam - General 1994 Eyes conjunctiva /eyelids Overall: eyelids normal 09/26/2015 None Full Exam - General 1994 Eyes pupils and irises Overall: pupils equal, round, reactive to light and accomodation 09/26/2015 None Full Exam - General 1994 Ears/Nose/Throat otoscopic exam Overall: external auditory canals clear 09/26/2015 None Full Exam - General 1994 Ears/Nose/Throat otoscopic exam Overall: tympanic membranes clear 09/26/2015 None Full Exam - General 1994 Ears/Nose/Throat lips/teeth/gingiva Overall: benign lips 09/26/2015 None Full Exam - General 1994 Ears/Nose/Throat lips/teeth/gingiva Overall: normal dentition 09/26/2015 None Full Exam - General 1994 Ears/Nose/Throat oral cavity/pharynx/larynx Overall: oral mucosa clear 09/26/2015 None Full Exam - General 1994 Ears/Nose/Throat oral cavity/pharynx/larynx Overall: oropharyngeal mucosa clear 09/26/2015 None Full Exam - General 1994 Ears/Nose/Throat oral cavity/pharynx/larynx Overall: hypopharynx benign 09/26/2015 None Full Exam - General 1994 Ears/Nose/Throat oral cavity/pharynx/larynx Overall: no masses 09/26/2015 None Full Exam - General 1994 Respiratory auscultation Overall: breath sounds clear bilaterally 09/26/2015 None Full Exam - General 1994 Respiratory respiratory effort/rhythm Overall: no retractions 09/26/2015 None Full Exam - General 1994 Respiratory respiratory effort/rhythm Overall: normal rate 09/26/2015 None Full Exam - General 1994 Cardiovascular extremities Edema present: severity 1+ - 4 +: trace 09/26/2015 None Full Exam - General 1994 Cardiovascular auscultation of heart Overall: regular rate 09/26/2015 None Full Exam - General 1994 Cardiovascular auscultation of heart Overall: normal heart sounds 09/26/2015 None Full Exam - General 1994 Abdomen abdominal exam Overall: no tenderness 09/26/2015 None Full Exam - General 1994 Abdomen abdominal exam Overall: normal bowel sounds 09/26/2015 None Full Exam - General 1994 Lymphatic neck nodes Overall: anterior cervical chain benign 09/26/2015 None Full Exam - General 1994 Lymphatic neck nodes Overall: posterior cervical chain benign 09/26/2015 None Full Exam - General 1994 Musculoskeletal spine, ribs and pelvis Overall: spine benign 09/26/2015 None Full Exam - General 1994 Musculoskeletal spine, ribs and pelvis Overall: sacroiliac joint benign 09/26/2015 None Full Exam - General 1994 Musculoskeletal spine, ribs and pelvis Overall: good posture 09/26/2015 None Full Exam - General 1994 Musculoskeletal head and neck Overall: head atraumatic 09/26/2015 None Full Exam - General 1994 Musculoskeletal head and neck Overall: cervical spine benign 09/26/2015 None Full Exam - General 1994 Neurologic deep tendon reflexes Overall: deep tendon reflexes intact 09/26/2015 None Full Exam - General 1994 Neurologic cranial nerves Overall: crainial nerves 2 - 12 grossly intact 09/26/2015 None Full Exam - General 1994 Psychiatric orientation/consciousness Overall: oriented to person, place and time 09/26/2015 None Full Exam - General 1994 Psychiatric mood and affect Overall: normal mood and affect 09/26/2015 None Full Exam - General 1994 Integument inspection of skin Rash/Lesions: patch 09/26/2015 on left breast - inner upper quadrant - irritated lesion about 0.5cm in size - treated with cryotherapy today Full Exam - General 1994 Constitutional general appearance Development: well developed 08/23/2015 None Full Exam - General 1994 Constitutional general appearance Development: appears stated age 0508/23/2015 None Full Exam - General 1994 Constitutional general appearance Hygiene/Attention to Grooming: good hygiene 08/23/2015 None Full Exam - General 1994 Eyes conjunctiva /eyelids Overall: conjunctiva clear 08/23/2015 None Full Exam - General 1994 Eyes conjunctiva /eyelids Overall: cornea clear 08/23/2015 None Full Exam - General 1994 Eyes conjunctiva /eyelids Overall: eyelids normal 08/23/2015 None Full Exam - General 1994 Eyes pupils and irises Overall: pupils equal, round, reactive to light and accomodation 08/23/2015 None Full Exam - General 1994 Ears/Nose/Throat otoscopic exam Overall: external auditory canals clear 08/23/2015 None Full Exam - General 1994 Ears/Nose/Throat otoscopic exam Overall: tympanic membranes clear 08/23/2015 None Full Exam - General 1994 Ears/Nose/Throat lips/teeth/gingiva Overall: benign lips 08/23/2015 None Full Exam - General 1994 Ears/Nose/Throat lips/teeth/gingiva Overall: normal dentition 08/23/2015 None Full Exam - General 1994 Ears/Nose/Throat oral cavity/pharynx/larynx Overall: oral mucosa clear 08/23/2015 None Full Exam - General 1994 Ears/Nose/Throat oral cavity/pharynx/larynx Overall: oropharyngeal mucosa clear 08/23/2015 None Full Exam - General 1994 Ears/Nose/Throat oral cavity/pharynx/larynx Overall: hypopharynx benign 08/23/2015 None Full Exam - General 1994 Ears/Nose/Throat oral cavity/pharynx/larynx Overall: no masses 08/23/2015 None Full Exam - General 1994 Respiratory auscultation Overall: breath sounds clear bilaterally 08/23/2015 None Full Exam - General 1994 Respiratory respiratory effort/rhythm Overall: no retractions 08/23/2015 None Full Exam - General 1994 Respiratory respiratory effort/rhythm Overall: normal rate 08/23/2015 None Full Exam - General 1994 Cardiovascular extremities Edema present: severity 1+ - 4 +: trace 08/23/2015 None Full Exam - General 1994 Cardiovascular auscultation of heart Overall: regular rate 08/23/2015 None Full Exam - General 1994 Cardiovascular auscultation of heart Overall: normal heart sounds 08/23/2015 None Full Exam - General 1994 Abdomen abdominal exam Overall: no tenderness 08/23/2015 None Full Exam - General 1994 Abdomen abdominal exam Overall: normal bowel sounds 08/23/2015 None Full Exam - General 1994 Lymphatic neck nodes Overall: anterior cervical chain benign 08/23/2015 None Full Exam - General 1994 Lymphatic neck nodes Overall: posterior cervical chain benign 08/23/2015 None Full Exam - General 1994 Musculoskeletal spine, ribs and pelvis Overall: spine benign 08/23/2015 None Full Exam - General 1994 Musculoskeletal spine, ribs and pelvis Overall: sacroiliac joint benign 08/23/2015 None Full Exam - General 1994 Musculoskeletal spine, ribs and pelvis Overall: good posture 08/23/2015 None Full Exam - General 1994 Musculoskeletal head and neck Overall: head atraumatic 08/23/2015 None Full Exam - General 1994 Musculoskeletal head and neck Overall: cervical spine benign 08/23/2015 None Full Exam - General 1994 Integument inspection of skin Overall: few scattered moles, no gross abnormalities 08/23/2015 None Full Exam - General 1994 Neurologic deep tendon reflexes Overall: deep tendon reflexes intact 08/23/2015 None Full Exam - General 1994 Neurologic cranial nerves Overall: crainial nerves 2 - 12 grossly intact 08/23/2015 None Full Exam - General 1994 Psychiatric orientation/consciousness Overall: oriented to person, place and time 08/23/2015 None Full Exam - General 1994 Psychiatric mood and affect Overall: normal mood and affect 08/23/2015 None Full Exam - General 1994 Constitutional general appearance Development: well developed 07/19/2015 None Full Exam - General 1994 Constitutional general appearance Development: appears stated age 0407/19/2015 None Full Exam - General 1994 Constitutional general appearance Hygiene/Attention to Grooming: good hygiene 07/19/2015 None Full Exam - General 1994 Eyes conjunctiva /eyelids Overall: conjunctiva clear 07/19/2015 None Full Exam - General 1994 Eyes conjunctiva /eyelids Overall: cornea clear 07/19/2015 None Full Exam - General 1994 Eyes conjunctiva /eyelids Overall: eyelids normal 07/19/2015 None Full Exam - General 1994 Eyes pupils and irises Overall: pupils equal, round, reactive to light and accomodation 07/19/2015 None Full Exam - General 1994 Ears/Nose/Throat otoscopic exam Overall: external auditory canals clear 07/19/2015 None Full Exam - General 1994 Ears/Nose/Throat otoscopic exam Overall: tympanic membranes clear 07/19/2015 None Full Exam - General 1994 Ears/Nose/Throat lips/teeth/gingiva Overall: benign lips 07/19/2015 None Full Exam - General 1994 Ears/Nose/Throat lips/teeth/gingiva Overall: normal dentition 07/19/2015 None Full Exam - General 1994 Ears/Nose/Throat oral cavity/pharynx/larynx Overall: oral mucosa clear 07/19/2015 None Full Exam - General 1994 Ears/Nose/Throat oral cavity/pharynx/larynx Overall: oropharyngeal mucosa clear 07/19/2015 None Full Exam - General 1994 Ears/Nose/Throat oral cavity/pharynx/larynx Overall: no masses 07/19/2015 None Full Exam - General 1994 Respiratory auscultation Overall: breath sounds clear bilaterally 07/19/2015 None Full Exam - General 1994 Respiratory respiratory effort/rhythm Overall: no retractions 07/19/2015 None Full Exam - General 1994 Respiratory respiratory effort/rhythm Overall: normal rate 07/19/2015 None Full Exam - General 1994 Cardiovascular extremities Edema present: severity 1+ - 4 +: trace 07/19/2015 None Full Exam - General 1994 Cardiovascular auscultation of heart Overall: regular rate 07/19/2015 None Full Exam - General 1994 Cardiovascular auscultation of heart Overall: normal heart sounds 07/19/2015 None Full Exam - General 1994 Abdomen abdominal exam Overall: no tenderness 07/19/2015 None Full Exam - General 1994 Abdomen abdominal exam Overall: normal bowel sounds 07/19/2015 None Full Exam - General 1994 Lymphatic neck nodes Overall: anterior cervical chain benign 07/19/2015 None Full Exam - General 1994 Lymphatic neck nodes Overall: posterior cervical chain benign 07/19/2015 None Full Exam - General 1994 Musculoskeletal spine, ribs and pelvis Overall: good posture 07/19/2015 None Full Exam - General 1994 Musculoskeletal head and neck Overall: head atraumatic 07/19/2015 None Full Exam - General 1994 Musculoskeletal head and neck Overall: cervical spine benign 07/19/2015 None Full Exam - General 1994 Integument inspection of skin Overall: few scattered moles, no gross abnormalities 07/19/2015 None Full Exam - General 1994 Neurologic cranial nerves Overall: crainial nerves 2 - 12 grossly intact 07/19/2015 None Full Exam - General 1994 Psychiatric orientation/consciousness Overall: oriented to person, place and time 07/19/2015 None Full Exam - General 1994 Psychiatric mood and affect Overall: normal mood and affect 07/19/2015 None Full Exam - General 1994 Constitutional general appearance Development: well developed 04/17/2015 None Full Exam - General 1994 Constitutional general appearance Development: appears stated age 0104/17/2015 None Full Exam - General 1994 Constitutional general appearance Hygiene/Attention to Grooming: good hygiene 04/17/2015 None Full Exam - General 1994 Eyes conjunctiva /eyelids Overall: conjunctiva clear 04/17/2015 None Full Exam - General 1994 Eyes conjunctiva /eyelids Overall: cornea clear 04/17/2015 None Full Exam - General 1994 Eyes conjunctiva /eyelids Overall: eyelids normal 04/17/2015 None Full Exam - General 1994 Eyes pupils and irises Overall: pupils equal, round, reactive to light and accomodation 04/17/2015 None Full Exam - General 1994 Ears/Nose/Throat otoscopic exam Overall: external auditory canals clear 04/17/2015 None Full Exam - General 1994 Ears/Nose/Throat otoscopic exam Overall: tympanic membranes clear 04/17/2015 None Full Exam - General 1994 Ears/Nose/Throat lips/teeth/gingiva Overall: benign lips 04/17/2015 None Full Exam - General 1994 Ears/Nose/Throat lips/teeth/gingiva Overall: normal dentition 04/17/2015 None Full Exam - General 1994 Ears/Nose/Throat oral cavity/pharynx/larynx Overall: oral mucosa clear 04/17/2015 None Full Exam - General 1994 Ears/Nose/Throat oral cavity/pharynx/larynx Overall: oropharyngeal mucosa clear 04/17/2015 None Full Exam - General 1994 Ears/Nose/Throat oral cavity/pharynx/larynx Overall: hypopharynx benign 04/17/2015 None Full Exam - General 1994 Ears/Nose/Throat oral cavity/pharynx/larynx Overall: no masses 04/17/2015 None Full Exam - General 1994 Respiratory auscultation Overall: breath sounds clear bilaterally 04/17/2015 None Full Exam - General 1994 Respiratory respiratory effort/rhythm Overall: no retractions 04/17/2015 None Full Exam - General 1994 Respiratory respiratory effort/rhythm Overall: normal rate 04/17/2015 None Full Exam - General 1994 Cardiovascular extremities Edema present: severity 1+ - 4 +: trace 04/17/2015 None Full Exam - General 1994 Cardiovascular auscultation of heart Overall: regular rate 04/17/2015 None Full Exam - General 1994 Cardiovascular auscultation of heart Overall: normal heart sounds 04/17/2015 None Full Exam - General 1994 Abdomen abdominal exam Overall: no tenderness 04/17/2015 None Full Exam - General 1994 Abdomen abdominal exam Overall: normal bowel sounds 04/17/2015 None Full Exam - General 1994 Lymphatic neck nodes Overall: anterior cervical chain benign 04/17/2015 None Full Exam - General 1994 Lymphatic neck nodes Overall: posterior cervical chain benign 04/17/2015 None Full Exam - General 1994 Musculoskeletal spine, ribs and pelvis Overall: spine benign 04/17/2015 None Full Exam - General 1994 Musculoskeletal spine, ribs and pelvis Overall: sacroiliac joint benign 04/17/2015 None Full Exam - General 1994 Musculoskeletal spine, ribs and pelvis Overall: good posture 04/17/2015 None Full Exam - General 1994 Musculoskeletal head and neck Overall: head atraumatic 04/17/2015 None Full Exam - General 1994 Musculoskeletal head and neck Overall: cervical spine benign 04/17/2015 None Full Exam - General 1994 Integument inspection of skin Overall: few scattered moles, no gross abnormalities 04/17/2015 None Full Exam - General 1994 Neurologic deep tendon reflexes Overall: deep tendon reflexes intact 04/17/2015 None Full Exam - General 1994 Neurologic cranial nerves Overall: crainial nerves 2 - 12 grossly intact 04/17/2015 None Full Exam - General 1994 Psychiatric orientation/consciousness Overall: oriented to person, place and time 04/17/2015 None Full Exam - General 1994 Psychiatric mood and affect Overall: normal mood and affect 04/17/2015 None Full Exam - General 1994 Constitutional general appearance Development: well developed 03/15/2015 None Full Exam - General 1994 Constitutional general appearance Development: appears stated age 1203/15/2015 None Full Exam - General 1994 Constitutional general appearance Hygiene/Attention to Grooming: good hygiene 03/15/2015 None Full Exam - General 1994 Eyes conjunctiva /eyelids Overall: conjunctiva clear 03/15/2015 None Full Exam - General 1994 Eyes conjunctiva /eyelids Overall: cornea clear 03/15/2015 None Full Exam - General 1994 Eyes conjunctiva /eyelids Overall: eyelids normal 03/15/2015 None Full Exam - General 1994 Eyes pupils and irises Overall: pupils equal, round, reactive to light and accomodation 03/15/2015 None Full Exam - General 1994 Ears/Nose/Throat otoscopic exam Overall: external auditory canals clear 03/15/2015 None Full Exam - General 1994 Ears/Nose/Throat otoscopic exam Overall: tympanic membranes clear 03/15/2015 None Full Exam - General 1994 Ears/Nose/Throat lips/teeth/gingiva Overall: benign lips 03/15/2015 None Full Exam - General 1994 Ears/Nose/Throat lips/teeth/gingiva Overall: normal dentition 03/15/2015 None Full Exam - General 1994 Ears/Nose/Throat oral cavity/pharynx/larynx Overall: oral mucosa clear 03/15/2015 None Full Exam - General 1994 Ears/Nose/Throat oral cavity/pharynx/larynx Overall: oropharyngeal mucosa clear 03/15/2015 None Full Exam - General 1994 Ears/Nose/Throat oral cavity/pharynx/larynx Overall: hypopharynx benign 03/15/2015 None Full Exam - General 1994 Ears/Nose/Throat oral cavity/pharynx/larynx Overall: no masses 03/15/2015 None Full Exam - General 1994 Respiratory auscultation Overall: breath sounds clear bilaterally 03/15/2015 None Full Exam - General 1994 Respiratory respiratory effort/rhythm Overall: no retractions 03/15/2015 None Full Exam - General 1994 Respiratory respiratory effort/rhythm Overall: normal rate 03/15/2015 None Full Exam - General 1994 Cardiovascular auscultation of heart Overall: regular rate 03/15/2015 None Full Exam - General 1994 Cardiovascular auscultation of heart Overall: normal heart sounds 03/15/2015 None Full Exam - General 1994 Abdomen abdominal exam Overall: no tenderness 03/15/2015 None Full Exam - General 1994 Abdomen abdominal exam Overall: normal bowel sounds 03/15/2015 None Full Exam - General 1994 Lymphatic neck nodes Overall: anterior cervical chain benign 03/15/2015 None Full Exam - General 1994 Lymphatic neck nodes Overall: posterior cervical chain benign 03/15/2015 None Full Exam - General 1994 Musculoskeletal spine, ribs and pelvis Overall: spine benign 03/15/2015 None Full Exam - General 1994 Musculoskeletal spine, ribs and pelvis Overall: sacroiliac joint benign 03/15/2015 None Full Exam - General 1994 Musculoskeletal spine, ribs and pelvis Overall: good posture 03/15/2015 None Full Exam - General 1994 Musculoskeletal head and neck Overall: head atraumatic 03/15/2015 None Full Exam - General 1994 Musculoskeletal head and neck Overall: cervical spine benign 03/15/2015 None Full Exam - General 1994 Integument inspection of skin Overall: few scattered moles, no gross abnormalities 03/15/2015 None Full Exam - General 1994 Neurologic deep tendon reflexes Overall: deep tendon reflexes intact 03/15/2015 None Full Exam - General 1994 Neurologic cranial nerves Overall: crainial nerves 2 - 12 grossly intact 03/15/2015 None Full Exam - General 1994 Psychiatric orientation/consciousness Overall: oriented to person, place and time 03/15/2015 None Full Exam - General 1994 Psychiatric mood and affect Overall: normal mood and affect 03/15/2015 None Full Exam - General 1994 Cardiovascular extremities Edema present: severity 1+ - 4 +: trace 03/15/2015 None Full Exam - General 1994 Constitutional general appearance Development: well developed 02/06/2015 None Full Exam - General 1994 Constitutional general appearance Development: appears stated age 1002/06/2015 None Full Exam - General 1994 Constitutional general appearance Hygiene/Attention to Grooming: good hygiene 02/06/2015 None Full Exam - General 1994 Eyes conjunctiva /eyelids Overall: conjunctiva clear 02/06/2015 None Full Exam - General 1994 Eyes conjunctiva /eyelids Overall: cornea clear 02/06/2015 None Full Exam - General 1994 Eyes conjunctiva /eyelids Overall: eyelids normal 02/06/2015 None Full Exam - General 1994 Eyes pupils and irises Overall: pupils equal, round, reactive to light and accomodation 02/06/2015 None Full Exam - General 1994 Ears/Nose/Throat otoscopic exam Overall: external auditory canals clear 02/06/2015 None Full Exam - General 1994 Ears/Nose/Throat otoscopic exam Overall: tympanic membranes clear 02/06/2015 None Full Exam - General 1994 Ears/Nose/Throat lips/teeth/gingiva Overall: benign lips 02/06/2015 None Full Exam - General 1994 Ears/Nose/Throat lips/teeth/gingiva Overall: normal dentition 02/06/2015 None Full Exam - General 1994 Ears/Nose/Throat oral cavity/pharynx/larynx Overall: oral mucosa clear 02/06/2015 None Full Exam - General 1994 Ears/Nose/Throat oral cavity/pharynx/larynx Overall: oropharyngeal mucosa clear 02/06/2015 None Full Exam - General 1994 Ears/Nose/Throat oral cavity/pharynx/larynx Overall: hypopharynx benign 02/06/2015 None Full Exam - General 1994 Ears/Nose/Throat oral cavity/pharynx/larynx Overall: no masses 02/06/2015 None Full Exam - General 1994 Respiratory auscultation Overall: breath sounds clear bilaterally 02/06/2015 None Full Exam - General 1994 Respiratory respiratory effort/rhythm Overall: no retractions 02/06/2015 None Full Exam - General 1994 Respiratory respiratory effort/rhythm Overall: normal rate 02/06/2015 None Full Exam - General 1994 Cardiovascular auscultation of heart Overall: regular rate 02/06/2015 None Full Exam - General 1994 Cardiovascular auscultation of heart Overall: normal heart sounds 02/06/2015 None Full Exam - General 1994 Abdomen abdominal exam Overall: no tenderness 02/06/2015 None Full Exam - General 1994 Abdomen abdominal exam Overall: normal bowel sounds 02/06/2015 None Full Exam - General 1994 Lymphatic neck nodes Overall: anterior cervical chain benign 02/06/2015 None Full Exam - General 1994 Lymphatic neck nodes Overall: posterior cervical chain benign 02/06/2015 None Full Exam - General 1994 Musculoskeletal spine, ribs and pelvis Overall: spine benign 02/06/2015 None Full Exam - General 1994 Musculoskeletal spine, ribs and pelvis Overall: sacroiliac joint benign 02/06/2015 None Full Exam - General 1994 Musculoskeletal spine, ribs and pelvis Overall: good posture 02/06/2015 None Full Exam - General 1994 Musculoskeletal head and neck Overall: head atraumatic 02/06/2015 None Full Exam - General 1994 Musculoskeletal head and neck Overall: cervical spine benign 02/06/2015 None Full Exam - General 1994 Integument inspection of skin Overall: few scattered moles, no gross abnormalities 02/06/2015 None Full Exam - General 1994 Neurologic deep tendon reflexes Overall: deep tendon reflexes intact 02/06/2015 None Full Exam - General 1994 Neurologic cranial nerves Overall: crainial nerves 2 - 12 grossly intact 02/06/2015 None Full Exam - General 1994 Psychiatric orientation/consciousness Overall: oriented to person, place and time 02/06/2015 None Full Exam - General 1994 Psychiatric mood and affect Overall: normal mood and affect 02/06/2015 None Full Exam - General 1994 Cardiovascular extremities Edema present: severity 1+ - 4 +: 1-2+ L>R 02/06/2015 None Full Exam - General 1994 Constitutional general appearance Development: well developed 12/13/2014 None Full Exam - General 1994 Constitutional general appearance Development: appears stated age 0912/13/2014 None Full Exam - General 1994 Constitutional general appearance Hygiene/Attention to Grooming: good hygiene 12/13/2014 None Full Exam - General 1994 Eyes conjunctiva /eyelids Overall: conjunctiva clear 12/13/2014 None Full Exam - General 1994 Eyes conjunctiva /eyelids Overall: cornea clear 12/13/2014 None Full Exam - General 1994 Eyes conjunctiva /eyelids Overall: eyelids normal 12/13/2014 None Full Exam - General 1994 Eyes pupils and irises Overall: pupils equal, round, reactive to light and accomodation 12/13/2014 None Full Exam - General 1994 Ears/Nose/Throat otoscopic exam Overall: external auditory canals clear 12/13/2014 None Full Exam - General 1994 Ears/Nose/Throat otoscopic exam Overall: tympanic membranes clear 12/13/2014 None Full Exam - General 1994 Ears/Nose/Throat lips/teeth/gingiva Overall: benign lips 12/13/2014 None Full Exam - General 1994 Ears/Nose/Throat lips/teeth/gingiva Overall: normal dentition 12/13/2014 None Full Exam - General 1994 Ears/Nose/Throat oral cavity/pharynx/larynx Overall: oral mucosa clear 12/13/2014 None Full Exam - General 1994 Ears/Nose/Throat oral cavity/pharynx/larynx Overall: oropharyngeal mucosa clear 12/13/2014 None Full Exam - General 1994 Ears/Nose/Throat oral cavity/pharynx/larynx Overall: hypopharynx benign 12/13/2014 None Full Exam - General 1994 Ears/Nose/Throat oral cavity/pharynx/larynx Overall: no masses 12/13/2014 None Full Exam - General 1994 Respiratory auscultation Overall: breath sounds clear bilaterally 12/13/2014 None Full Exam - General 1994 Respiratory respiratory effort/rhythm Overall: no retractions 12/13/2014 None Full Exam - General 1994 Respiratory respiratory effort/rhythm Overall: normal rate 12/13/2014 None Full Exam - General 1994 Cardiovascular extremities Overall: no clubbing 12/13/2014 None Full Exam - General 1994 Cardiovascular auscultation of heart Overall: regular rate 12/13/2014 None Full Exam - General 1994 Cardiovascular auscultation of heart Overall: normal heart sounds 12/13/2014 None Full Exam - General 1994 Abdomen abdominal exam Overall: no tenderness 12/13/2014 None Full Exam - General 1994 Abdomen abdominal exam Overall: normal bowel sounds 12/13/2014 None Full Exam - General 1994 Lymphatic neck nodes Overall: anterior cervical chain benign 12/13/2014 None Full Exam - General 1994 Lymphatic neck nodes Overall: posterior cervical chain benign 12/13/2014 None Full Exam - General 1994 Musculoskeletal spine, ribs and pelvis Overall: spine benign 12/13/2014 None Full Exam - General 1994 Musculoskeletal spine, ribs and pelvis Overall: sacroiliac joint benign 12/13/2014 None Full Exam - General 1994 Musculoskeletal spine, ribs and pelvis Overall: good posture 12/13/2014 None Full Exam - General 1994 Musculoskeletal head and neck Overall: head atraumatic 12/13/2014 None Full Exam - General 1994 Musculoskeletal head and neck Overall: cervical spine benign 12/13/2014 None Full Exam - General 1994 Integument inspection of skin Overall: few scattered moles, no gross abnormalities 12/13/2014 None Full Exam - General 1994 Neurologic deep tendon reflexes Overall: deep tendon reflexes intact 12/13/2014 None Full Exam - General 1994 Neurologic cranial nerves Overall: crainial nerves 2 - 12 grossly intact 12/13/2014 None Full Exam - General 1994 Psychiatric orientation/consciousness Overall: oriented to person, place and time 12/13/2014 None Full Exam - General 1994 Psychiatric mood and affect Overall: normal mood and affect 12/13/2014 None Full Exam - General 1994 Constitutional general appearance Development: well developed 10/11/2014 None Full Exam - General 1994 Constitutional general appearance Development: appears stated age 0710/11/2014 None Full Exam - General 1994 Constitutional general appearance Hygiene/Attention to Grooming: good hygiene 10/11/2014 None Full Exam - General 1994 Eyes conjunctiva /eyelids Overall: conjunctiva clear 10/11/2014 None Full Exam - General 1994 Eyes conjunctiva /eyelids Overall: cornea clear 10/11/2014 None Full Exam - General 1994 Eyes conjunctiva /eyelids Overall: eyelids normal 10/11/2014 None Full Exam - General 1994 Eyes pupils and irises Overall: pupils equal, round, reactive to light and accomodation 10/11/2014 None Full Exam - General 1994 Ears/Nose/Throat otoscopic exam Overall: external auditory canals clear 10/11/2014 None Full Exam - General 1994 Ears/Nose/Throat otoscopic exam Overall: tympanic membranes clear 10/11/2014 None Full Exam - General 1994 Ears/Nose/Throat lips/teeth/gingiva Overall: benign lips 10/11/2014 None Full Exam - General 1994 Ears/Nose/Throat lips/teeth/gingiva Overall: normal dentition 10/11/2014 None Full Exam - General 1994 Ears/Nose/Throat oral cavity/pharynx/larynx Overall: oral mucosa clear 10/11/2014 None Full Exam - General 1994 Ears/Nose/Throat oral cavity/pharynx/larynx Overall: oropharyngeal mucosa clear 10/11/2014 None Full Exam - General 1994 Ears/Nose/Throat oral cavity/pharynx/larynx Overall: hypopharynx benign 10/11/2014 None Full Exam - General 1994 Ears/Nose/Throat oral cavity/pharynx/larynx Overall: no masses 10/11/2014 None Full Exam - General 1994 Respiratory auscultation Overall: breath sounds clear bilaterally 10/11/2014 None Full Exam - General 1994 Respiratory respiratory effort/rhythm Overall: no retractions 10/11/2014 None Full Exam - General 1994 Respiratory respiratory effort/rhythm Overall: normal rate 10/11/2014 None Full Exam - General 1994 Cardiovascular extremities Overall: no clubbing 10/11/2014 None Full Exam - General 1994 Cardiovascular auscultation of heart Overall: regular rate 10/11/2014 None Full Exam - General 1994 Cardiovascular auscultation of heart Overall: normal heart sounds 10/11/2014 None Full Exam - General 1994 Abdomen abdominal exam Overall: no tenderness 10/11/2014 None Full Exam - General 1994 Abdomen abdominal exam Overall: normal bowel sounds 10/11/2014 None Full Exam - General 1994 Lymphatic neck nodes Overall: anterior cervical chain benign 10/11/2014 None Full Exam - General 1994 Lymphatic neck nodes Overall: posterior cervical chain benign 10/11/2014 None Full Exam - General 1994 Musculoskeletal spine, ribs and pelvis Overall: spine benign 10/11/2014 None Full Exam - General 1994 Musculoskeletal spine, ribs and pelvis Overall: sacroiliac joint benign 10/11/2014 None Full Exam - General 1994 Musculoskeletal spine, ribs and pelvis Overall: good posture 10/11/2014 None Full Exam - General 1994 Musculoskeletal head and neck Overall: head atraumatic 10/11/2014 None Full Exam - General 1994 Musculoskeletal head and neck Overall: cervical spine benign 10/11/2014 None Full Exam - General 1994 Integument inspection of skin Overall: few scattered moles, no gross abnormalities 10/11/2014 None Full Exam - General 1994 Neurologic deep tendon reflexes Overall: deep tendon reflexes intact 10/11/2014 None Full Exam - General 1994 Neurologic cranial nerves Overall: crainial nerves 2 - 12 grossly intact 10/11/2014 None Full Exam - General 1994 Psychiatric orientation/consciousness Overall: oriented to person, place and time 10/11/2014 None Full Exam - General 1994 Psychiatric mood and affect Overall: normal mood and affect 10/11/2014 None Procedures Procedure Codes Date PPPS, SUBSEQ VISIT CPT -4: G0439 08/21/2016 PNEUMOCOCCAL VACC [address]: 11474308 CPT-4: 32993 02/20/2016 ADMIN PNEUMOCOCCAL VACCINE SNOMED CT: 76243022 CPT-4: G0009 02/20/2016 ADMIN INFLUENZA VIRUS VAC CPT-4: G0008 01/23/2016 FLU VACC 4 KATIE 3 YRS PLUS IM SNOMED CT: 10615571 CPT-4: 24667 01/23/2016 PPPS, SUBSEQ VISIT CPT -4: G0439 07/19/2015 Vital Signs Date Vital 02/17/2017 Blood Pressure 1: 144/86 Code : 8480-6 BMI: 28.7 Code : 90056-7 Heart Rate 1 : 64 bpm Height: 5'1" SpO2: 96% Weight: 152 lbs 01/02/2017 Blood Pressure 1: 132/78 Code : 8480-6 BMI: 28.3 Code : 53601-9 Heart Rate 1 : 71 bpm Height: 5'1" SpO2: 97% Weight: 150 lbs 12/05/2016 Blood Pressure 1: 140/76 Code : 8480-6 BMI: 29.5 Code : 22038-0 Heart Rate 1 : 66 bpm Height: 5'1" SpO2: 98% Weight: 156 lbs 08/21/2016 Blood Pressure 1: 142/78 Code : 8480-6 BMI: 29.9 Code : 29618-3 Heart Rate 1 : 62 bpm Height: 5'1" SpO2: 98% Waist Measure (cm): 79 cm Weight: 158 lbs 08/19/2016 Blood Pressure 1: 142/78 Code : 8480-6 BMI: 29.9 Code : 87569-1 Heart Rate 1 : 62 bpm Height: 5'1" SpO2: 98% Weight: 158 lbs 05/20/2016 Blood Pressure 1: 152/76 Code : 8480-6 Blood Pressure 1: 144/80 Code: 8480-6 BMI: 29.3 Code: 00943-6 Heart Rate 1: 60 bpm Height: 5'1" SpO2: 95% Weight: 155 lbs 01/23/2016 Blood Pressure 1: 138/78 Code : 8480-6 BMI: 29.7 Code : 76841-1 Heart Rate 1 : 64 bpm Height: 5'1" SpO2: 98% Weight: 157 lbs 09/26/2015 Blood Pressure 1: 136/76 Code : 8480-6 BMI: 28.3 Code : 49481-3 Heart Rate 1 : 70 bpm Height: 5'1" SpO2: 98% Weight: 150 lbs 08/23/2015 Blood Pressure 1: 126/78 Code : 8480-6 BMI: 27.8 Code : 85227-0 Heart Rate 1 : 68 bpm Height: 5'1" SpO2: 97% Weight: 147 lbs 07/19/2015 Blood Pressure 1: 146/70 Code : 8480-6 BMI: 26.8 Code : 35508-0 Heart Rate 1 : 58 bpm Height: 5'1" SpO2: 96% Waist Measure (cm): 84 cm Weight: 142 lbs 04/17/2015 Blood Pressure 1: 132/62 Code : 8480-6 BMI: 25.3 Code : 30591-6 Heart Rate 1 : 98 bpm Height: 5'1" SpO2: 97% Weight: 134 lbs 03/15/2015 Blood Pressure 1: 158/72 Code : 8480-6 Blood Pressure 1: 160/70 Code: 8480-6 BMI: 25.5 Code: 73470-4 Heart Rate 1: 74 bpm Heart Rate 1: 72 bpm Height: 5'1" Height: SpO2: 98% Weight: Weight: 135 lbs 02/06/2015 Blood Pressure 1: 142/82 Code : 8480-6 BMI: 25.5 Code : 06335-9 Heart Rate 1 : 82 bpm Height: 5'1" SpO2: 96% Weight: 135 lbs 12/13/2014 Blood Pressure 1: 136/64 Code : 8480-6 BMI: 24.9 Code : 75613-2 Heart Rate 1 : 86 bpm Height: 5'1" SpO2: 95% Weight: 132 lbs 10/11/2014 Blood Pressure 1: 140/80 Code : 8480-6 BMI: 25.1 Code : 96883-0 Heart Rate 1 : 72 bpm Height: 5'1" Weight: 133 lbs Functional Status No Functional Status data History of Present Illness Symptom Name Status Result Effective Date Notes hypertension Quality primary hypertension 02/17/2017 None hypertension Onset and Resolution ongoing 02/17/2017 None hypertension Onset of Symptom during adulthood 02/17/2017 None hypertension Blood Pressure Values pt checking blood pressure - see scanned document 02/17/2017 None hypertension Severity not consistently severe symptoms, the symptoms fluctuate from no symptoms to anxiety and headaches 02/17/2017 None hypertension Frequency of Episodes unchanged 02/17/2017 None hypertension Alleviating Factors medication 02/17/2017 None hypertension Pertinent Findings dizziness 02/17/2017 -has vertigo hypertension Pertinent Findings dyspnea 02/17/2017 with exertion- worse with this time of the year with allergies hypertension Pertinent Findings Denies edema 02/17/2017 None hypertension Quality primary hypertension 01/02/2017 None hypertension Onset and Resolution ongoing 01/02/2017 None hypertension Onset of Symptom during adulthood 01/02/2017 None hypertension Blood Pressure Values pt checking blood pressure - see scanned document 01/02/2017 None hypertension Severity not consistently severe symptoms, the symptoms fluctuate from no symptoms to anxiety and headaches 01/02/2017 None hypertension Frequency of Episodes unchanged 01/02/2017 None hypertension Alleviating Factors medication 01/02/2017 None hypertension Pertinent Findings dizziness 01/02/2017 -has vertigo hypertension Pertinent Findings dyspnea 01/02/2017 with exertion- worse with this time of the year with allergies hypertension Pertinent Findings Denies edema 01/02/2017 None hypertension Quality primary hypertension 12/05/2016 None hypertension Onset and Resolution ongoing 12/05/2016 None hypertension Onset of Symptom during adulthood 12/05/2016 None hypertension Blood Pressure Values pt checking blood pressure - see scanned document 12/05/2016 None hypertension Alleviating Factors medication 12/05/2016 None hypertension Pertinent Findings dizziness 12/05/2016 -has vertigo hypertension Pertinent Findings dyspnea 12/05/2016 with exertion- worse with this time of the year with allergies hypertension Pertinent Findings Denies edema 12/05/2016 None hypertension Severity not consistently severe symptoms, the symptoms fluctuate from no symptoms to anxiety and headaches 12/05/2016 None hypertension Frequency of Episodes unchanged 12/05/2016 None Annual Medicare Wellness Exam Alcohol Use does not drink any alcohol 08/21/2016 None Annual Medicare Wellness Exam Aspirin Use no 08/21/2016 None Annual Medicare Wellness Exam Blood Glucose (self reported) borderline high (100-125) 08/21/2016 None Annual Medicare Wellness Exam Blood Pressure (self reported ) low / normal (120/80) 08/21/2016 None Annual Medicare Wellness Exam Cholesterol (self reported) borderline high (200-239) 08/21/2016 None Annual Medicare Wellness Exam Depression (last 6 months) some of the time 08/21/2016 None Annual Medicare Wellness Exam Depression or Hopelessness almost never 08/21/2016 None Annual Medicare Wellness Exam Describe Your Health good 08/21/2016 None Annual Medicare Wellness Exam Exercise Habits exercises 7 days per week 08/21/2016 None Annual Medicare Wellness Exam Exercise Habits exercises 15 minutes per day 08/21/2016 None Annual Medicare Wellness Exam Handling Stress usually jean effectively 08/21/2016 None Annual Medicare Wellness Exam Hemaglobin A-1C (self reported ) don't know 08/21/2016 None Annual Medicare Wellness Exam Hemaglobin A-1C (self reported ) desireable (6 or lower) 08/21/2016 None Annual Medicare Wellness Exam Hours of Sleep 7 08/21/2016 None Annual Medicare Wellness Exam Interaction with Friends no 08/21/2016 None Annual Medicare Wellness Exam Interests & Pleasure some of the time 08/21/2016 None Annual Medicare Wellness Exam Life Satisfaction satisfied 08/21/2016 None Annual Medicare Wellness Exam Motor Vehicle Safety always fastens seat belt: y 08/21/2016 None Annual Medicare Wellness Exam Motor Vehicle Safety drives after drinking: n 08/21/2016 None Annual Medicare Wellness Exam Motor Vehicle Safety rides with someone who has been drinking: n 2016 None Annual Medicare Wellness Exam Nutrition servings of fried food / high fat foods per day: 0 2016 None Annual Medicare Wellness Exam Nutrition servings of high fiber / whole grain per day: 1 08/21/2016 None Annual Medicare Wellness Exam Nutrition servings of vegetables / fruit per day: 3 08/21/2016 None Annual Medicare Wellness Exam Smoking and Tobacco Use non smoker 08/21/2016 None Annual Medicare Wellness Exam Social & Emotional Support sometimes 08/21/2016 None Annual Medicare Wellness Exam Stress some of the time 08/21/2016 None Annual Medicare Wellness Exam Sun Exposure protects skin when outdoors: y 08/21/2016 None diabetes mellitus Quality non-insulin dependent 08/19/2016 None diabetes mellitus Severity mild 08/19/2016 None diabetes mellitus Alleviating Factors diet 08/19/2016 None diabetes mellitus Alleviating Factors exercise 08/19/2016 None diabetes mellitus Exacerbating Factors diet 08/19/2016 None diabetes mellitus Pertinent Findings nausea 08/19/2016 "sometimes" diabetes mellitus Pertinent Findings numbness 08/19/2016 "sometimes" diabetes mellitus Pertinent Findings tingling 08/19/2016 "sometimes" hypertension Onset and Resolution ongoing 08/19/2016 None hypertension Onset of Symptom during adulthood 08/19/2016 None hypertension Blood Pressure Values pt checking blood pressure - see scanned document 08/19/2016 None hypertension Alleviating Factors medication 08/19/2016 None hypertension Pertinent Findings dyspnea 08/19/2016 with exertion- worse with this time of the year with allergies hypertension Pertinent Findings Denies edema 08/19/2016 None hypertension Pertinent Findings dizziness 08/19/2016 -has vertigo diabetes mellitus Test results Pt checking blood glucose at home, see scanned readings 2016 None diabetes mellitus Glucose monitoring occasional glucose testing 08/19/2016 None cough Quality intermittent 08/19/2016 None cough Quality dry 12/2016 None cough Onset and Resolution ongoing 08/19/2016 None cough Onset of Symptom 3+ months ago 08/19/2016 None cough Pertinent Findings post nasal drip 08/19/2016 None cough Pertinent Findings nasal congestion 08/19/2016 None hypertension Quality primary hypertension 08/19/2016 None diabetes mellitus Quality non-insulin dependent 05/20/2016 None diabetes mellitus Severity mild 05/20/2016 None diabetes mellitus Alleviating Factors diet 05/20/2016 None diabetes mellitus Alleviating Factors exercise 05/20/2016 None diabetes mellitus Exacerbating Factors diet 05/20/2016 None diabetes mellitus Pertinent Findings nausea 05/20/2016 only when she has vertigo 2-3 times per month diabetes mellitus Pertinent Findings numbness 05/20/2016 "sometimes" diabetes mellitus Pertinent Findings tingling 05/20/2016 "sometimes" hypertension Onset and Resolution ongoing 05/20/2016 None hypertension Onset of Symptom during adulthood 05/20/2016 None hypertension Blood Pressure Values pt checking blood pressure - see scanned document 05/20/2016 None hypertension Alleviating Factors medication 05/20/2016 None hypertension Pertinent Findings dyspnea 05/20/2016 with exertion- nothing new hypertension Pertinent Findings edema 05/20/2016 in bilateral legs- she does have compression socks, but she has not worn them often diabetes mellitus Quality non-insulin dependent 01/23/2016 None diabetes mellitus Severity mild 01/23/2016 None diabetes mellitus Alleviating Factors diet 01/23/2016 None diabetes mellitus Alleviating Factors exercise 01/23/2016 None diabetes mellitus Exacerbating Factors diet 01/23/2016 None diabetes mellitus Pertinent Findings nausea 01/23/2016 only when she has vertigo 2-3 times per month diabetes mellitus Pertinent Findings numbness 01/23/2016 "sometimes" diabetes mellitus Pertinent Findings tingling 01/23/2016 "sometimes" hypertension Onset and Resolution ongoing 01/23/2016 None hypertension Onset of Symptom during adulthood 01/23/2016 None hypertension Blood Pressure Values pt checking blood pressure - see scanned document 01/23/2016 None hypertension Alleviating Factors medication 01/23/2016 None hypertension Pertinent Findings dyspnea 01/23/2016 with exertion- nothing new hypertension Pertinent Findings edema 01/23/2016 in bilateral legs- she does have compression socks, but she has not worn them often diabetes mellitus Test results Pt checking blood glucose at home, see scanned readings 2015 None diabetes mellitus Glucose monitoring occasional glucose testing 01/23/2016 (3 times per week) nasal discharge Location in both nares 01/23/2016 None nasal discharge Quality intermittent 01/23/2016 None nasal discharge Onset and Resolution ongoing 01/23/2016 None nasal discharge Exacerbating Factors allergen exposure 01/23/2016 None diabetes mellitus Quality non-insulin dependent 09/26/2015 None diabetes mellitus Severity mild 09/26/2015 None diabetes mellitus Alleviating Factors diet 09/26/2015 None diabetes mellitus Alleviating Factors exercise 09/26/2015 None diabetes mellitus Exacerbating Factors diet 09/26/2015 None diabetes mellitus Pertinent Findings nausea 09/26/2015 only when she has vertigo diabetes mellitus Pertinent Findings Denies numbness 09/26/2015 None diabetes mellitus Pertinent Findings Denies tingling 09/26/2015 None hypertension Onset and Resolution ongoing 09/26/2015 None hypertension Onset of Symptom during adulthood 09/26/2015 None hypertension Alleviating Factors medication 09/26/2015 None hypertension Pertinent Findings Denies dyspnea 09/26/2015 None hypertension Pertinent Findings edema 09/26/2015 in her right ankle/lower leg mainly diabetes mellitus Test results Pt checking blood glucose at home, see scanned readings 2015 None diabetes mellitus Glucose monitoring occasional glucose testing 09/26/2015 - checks about every 3rd day- fasting hypertension Blood Pressure Values pt checking blood pressure - see scanned document 09/26/2015 None vertigo Quality intermittent 08/23/2015 None vertigo Onset and Resolution ongoing 08/23/2015 None vertigo Pertinent Findings dizziness 08/23/2015 None vertigo Frequency of Episodes weekly 08/23/2015 3-4 times per month diabetes mellitus Quality non-insulin dependent 08/23/2015 None diabetes mellitus Severity mild 08/23/2015 None diabetes mellitus Test results Pt checking blood glucose at home, see scanned readings 2015 None diabetes mellitus Glucose monitoring occasional glucose testing 08/23/2015 - checking every 3rd day diabetes mellitus Alleviating Factors diet 08/23/2015 None diabetes mellitus Alleviating Factors exercise 08/23/2015 None diabetes mellitus Exacerbating Factors diet 08/23/2015 None diabetes mellitus Pertinent Findings nausea 08/23/2015 only when she has vertigo diabetes mellitus Pertinent Findings Denies numbness 08/23/2015 None diabetes mellitus Pertinent Findings Denies tingling 08/23/2015 None hypertension Onset and Resolution ongoing 08/23/2015 None hypertension Onset of Symptom during adulthood 08/23/2015 None hypertension Alleviating Factors medication 08/23/2015 None hypertension Pertinent Findings Denies dyspnea 08/23/2015 None hypertension Pertinent Findings edema 08/23/2015 in her right ankle/lower leg mainly Annual Medicare Wellness Exam Alcohol Use does not drink any alcohol 07/19/2015 None Annual Medicare Wellness Exam Aspirin Use no 07/19/2015 None Annual Medicare Wellness Exam Blood Glucose (self reported) borderline high (100-125) 07/19/2015 None Annual Medicare Wellness Exam Blood Pressure (self reported ) borderline (120/80 - 139/89) 07/19/2015 None Annual Medicare Wellness Exam Cholesterol (self reported) borderline high (200-239) 07/19/2015 None Annual Medicare Wellness Exam Depression (last 6 months) almost never 07/19/2015 None Annual Medicare Wellness Exam Depression or Hopelessness almost never 07/19/2015 None Annual Medicare Wellness Exam Describe Your Health fair 07/19/2015 None Annual Medicare Wellness Exam Exercise Habits does not exercise 07/19/2015 None Annual Medicare Wellness Exam Handling Stress often has problems coping 07/19/2015 None Annual Medicare Wellness Exam Hemaglobin A-1C (self reported ) desireable (6 or lower) 07/19/2015 None Annual Medicare Wellness Exam Hours of Sleep 8 07/19/2015 None Annual Medicare Wellness Exam Interaction with Friends no 07/19/2015 None Annual Medicare Wellness Exam Interests & Pleasure some of the time 07/19/2015 None Annual Medicare Wellness Exam Life Satisfaction satisfied 07/19/2015 None Annual Medicare Wellness Exam Motor Vehicle Safety always fastens seat belt: y 07/19/2015 None Annual Medicare Wellness Exam Motor Vehicle Safety drives after drinking: n 07/19/2015 None Annual Medicare Wellness Exam Motor Vehicle Safety rides with someone who has been drinking: n 2015 None Annual Medicare Wellness Exam Nutrition servings of fried food / high fat foods per day: 0 2015 None Annual Medicare Wellness Exam Nutrition servings of high fiber / whole grain per day: 2 07/19/2015 None Annual Medicare Wellness Exam Nutrition servings of vegetables / fruit per day: 1 07/19/2015 None Annual Medicare Wellness Exam Social & Emotional Support rarely 07/19/2015 None Annual Medicare Wellness Exam Stress some of the time 07/19/2015 None Annual Medicare Wellness Exam Sun Exposure protects skin when outdoors: y 07/19/2015 None vertigo Quality intermittent 04/17/2015 None vertigo Onset and Resolution ongoing 04/17/2015 None vertigo Pertinent Findings dizziness 04/17/2015 None blood pressure followup Quality chronic 04/17/2015 None blood pressure followup Onset and Resolution ongoing 04/17/2015 None blood pressure followup Onset of Symptom during adulthood 04/17/2015 None blood pressure followup Blood Pressure Values pt checking blood pressure - see scanned document 04/17 None blood pressure followup Severity mild 04/17/2015 None blood pressure followup Frequency of Episodes increasing 04/17/2015 None blood pressure followup Triggers pt checking blood pressure - see scanned document 04/17/2015 None blood pressure followup Alleviating Factors medication 04/17/2015 None vertigo Quality intermittent 03/15/2015 None vertigo Onset and Resolution ongoing 03/15/2015 None vertigo Pertinent Findings dizziness 03/15/2015 None blood pressure followup Quality chronic 03/15/2015 None blood pressure followup Onset and Resolution ongoing 03/15/2015 None blood pressure followup Onset of Symptom during adulthood 03/15/2015 None blood pressure followup Blood Pressure Values pt checking blood pressure - see scanned document 03/15 None blood pressure followup Severity mild 03/15/2015 None blood pressure followup Frequency of Episodes increasing 03/15/2015 None blood pressure followup Triggers pt checking blood pressure - see scanned document 03/15/2015 None blood pressure followup Alleviating Factors medication 03/15/2015 None edema Onset and Resolution sudden in onset 02/06/2015 None edema Onset of Symptom 1 months ago 02/06/2015 None edema Pertinent Findings Denies dyspnea 02/06/2015 None cough Quality dry None cough Quality hacking 02/06/2015 None cough Onset of Symptom 6 months ago 02/06/2015 None cough Pertinent Findings Denies chest discomfort 02/06/2015 None edema Limitation on Activities does not limit activities 02/06/2015 None edema Frequency of Episodes unchanged 02/06/2015 None edema Triggers no known associated factors 02/06/2015 None edema Exacerbating Factors medication 02/06/2015 amlodipine edema Quality chronic 02/06/2015 None hypertension Quality intermittent 12/13/2014 None hypertension Blood Pressure Values patient checking blood pressure at home - did not bring in readings 12/13/2014 occasionally- reports seems to be controlled hypertension Pertinent Findings dizziness 12/13/2014 occasional spells- had a CT done a few months ago, but unsure of results hypertension Pertinent Findings Denies dyspnea 12/13/2014 None hypertension Pertinent Findings edema 12/13/2014 evening her feet and ankle at night fatigue Onset and Resolution ongoing 12/13/2014 chronic fatigue syndrome- sees Jaswant Brooks in [place] diabetes mellitus Quality NIDDM 12/13/2014 None diabetes mellitus Pertinent Findings dizziness 12/13/2014 occasional diabetes mellitus Pertinent Findings Denies dyspnea 12/13/2014 None hyperlipidemia Onset and Resolution ongoing 12/13/2014 None diabetes mellitus Quality NIDDM 10/11/2014 None diabetes mellitus Glucose monitoring twice daily 10/11/2014 no meds, just diet - bs this am 104 hyperlipidemia Onset and Resolution ongoing 10/11/2014 None fatigue Onset and Resolution ongoing 10/11/2014 chronic fatigue syndrome- sees Jaswant Brooks in [place] hypertension Quality intermittent 10/11/2014 None hypertension Blood Pressure Values patient checking blood pressure at home - did not bring in readings 10/11/2014 occasionally- reports seems to be controlled hypertension Pertinent Findings dizziness 10/11/2014 occasional spells- had a CT done a few months ago, but unsure of results hypertension Pertinent Findings edema 10/11/2014 evening her feet and ankle at night hypertension Pertinent Findings Denies dyspnea 10/11/2014 None diabetes mellitus Pertinent Findings dizziness 10/11/2014 occasional diabetes mellitus Pertinent Findings Denies dyspnea 10/11/2014 None Advance Directives No Advance Directive data Encounters Encounter Performer Location Codes Date ([id number]) [id number] EST. PATIENT, LEVEL IV Diagnosis: Essential (primary) hypertension[ICD10: I10] Diagnosis: Muscle weakness (generalized)[ICD10: M62.81] Diagnosis: Mixed hyperlipidemia[ICD10: E78.2] Maria Luisa Echeverria MD, [facility] CPT-4: 08361 02/17/2017 ([id number]) 79392 EST. PATIENT, LEVEL III Diagnosis: Essential (primary) hypertension[ICD10: I10] Diagnosis: Muscle weakness (generalized)[ICD10: M62.81] Diamond Echeverria MD, [facility] CPT-4: 70776 01/02/2017 ([id number]) 00087 EST. PATIENT, LEVEL IV Diagnosis: Muscle weakness (generalized)[ICD10: M62.81] Diagnosis: Cerebral infarction, unspecified[ICD10: I63.9] Diagnosis: Essential (primary) hypertension[ICD10: I10] Diagnosis: Gastro-esophageal reflux disease without esophagitis[ICD10: K21.9] Diagnosis: Allergic rhinitis due to pollen[ICD10: J30.1] Diamond Echeverria MD, [facility] CPT-4: 96517 12/05/2016 ([id number]) 94498 EST. PATIENT, LEVEL IV Diagnosis: Essential (primary) hypertension[ICD10: I10] Diagnosis: Type 2 diabetes mellitus without complications[ICD10: E11.9] Maria Luisa Echeverria MD [facility] CPT-4: 23904 08/19/2016 [id number] EST. PATIENT, LEVEL IV Diagnosis: Essential (primary) hypertension[ICD10: I10] Diagnosis: Type 2 diabetes mellitus without complications[ICD10: E11.9] Diagnosis: Mixed hyperlipidemia[ICD10: E78.2] Ashley Echeverria MD, [facility] CPT-4: 74323 05/20/2016 ([id number]) 49454 EST. PATIENT, LEVEL IV Diagnosis: Type 2 diabetes mellitus without complications[ICD10: E11.9] Diagnosis: Family history of other endocrine, nutritional and metabolic diseases [ICD10: Z83.49] Diagnosis: Other fatigue[ICD10: R53.83] Diagnosis: Abnormal weight gain[ICD10: R63.5] Diagnosis: Actinic keratosis[ICD10: L57.0] Maria Luisa Echeverria MD [facility] CPT- 4: 02271 01/23/2016 ([id number]) 05751 EST. PATIENT, LEVEL IV Diagnosis: Family history of other endocrine, nutritional and metabolic diseases [ICD10: Z83.49] Diagnosis: Other fatigue[ICD10: R53.83] Diagnosis: Abnormal weight gain[ICD10: R63.5] Diagnosis: Actinic keratosis[ICD10: L57.0] Diagnosis: Type 2 diabetes mellitus without complications[ICD10: E11.9] Maria Luisa Echeverria MD, [facility] CPT-4: 51183 09/26/2015 [id number]) [id number] EST. PATIENT, LEVEL IV Diagnosis: Essential (primary) hypertension[ICD10: I10] Diagnosis: Type 2 diabetes mellitus without complications[ICD10: E11.9] Diagnosis: Other depressive episodes[ICD10: F32.8] Diagnosis: Vitamin D deficiency, unspecified[ICD10: E55.9] Maria Luisa Echeverria MD [facility] CPT-4: 05180 08/23/2015 [id number] 19586 EST. PATIENT, LEVEL IV Diagnosis: Essential (primary) hypertension[ICD10: I10] Diagnosis: Benign paroxysmal vertigo, unspecified ear[ICD10: H81.10] Diagnosis: Type 2 diabetes mellitus without complications[ICD10: E11.9] Maria Luisa Echeverria MD, [facility] CPT-4: 63934 04/17/2015 ([id number] EST. PATIENT, LEVEL III Diagnosis: Essential (primary) hypertension[ICD10: I10] Diagnosis: Benign paroxysmal vertigo, unspecified ear[ICD10: H81.10] Diamond Echeverria MD , [facility] CPT-4: 07553 03/15/2015 ([id number]) 61413 EST. PATIENT, LEVEL III Diagnosis: Essential (primary) hypertension[ICD10: I10] Diagnosis: Edema, unspecified[ICD10: R60.9] Diamond Echeverria MD, [facility] CPT-4: 04541 02/06/2015 ([id number]) 13977 EST. PATIENT, LEVEL IV Diagnosis: ESSENTIAL HYPERTENSION[ICD9: 401.9] Diagnosis: HYPERLIPIDEMIA[ICD9: 272.4] Diagnosis: DEPRESSIVE DISORDER NEC[ICD9: 311] Diagnosis: ESOPHAGEAL REFLUX[ICD9: 530.81] Diagnosis: RESTLESS LEGS SYNDROME[ICD9: 333.94] Maria Luisa Echeverria MD, [facility] CPT-4: 56218 12/13/2014 ([id number]) OFFICE VISIT, NEW - LEVEL 4 Diagnosis: ESSENTIAL HYPERTENSION[ICD9: 401.9] Diagnosis: HYPERLIPIDEMIA[ICD9: 272.4] Diagnosis: DEPRESSIVE DISORDER NEC[ICD9: 311] Diagnosis: ESOPHAGEAL REFLUX[ICD9: 530.81] Diagnosis: RESTLESS LEGS SYNDROME[ICD9: 333.94] Maria Luisa Echeverria MD, [facility] CPT-4: 07087 10/11/2014 Plan of Care Planned Activity Notes Codes Status Date Appointment: Maria Luisa Echeverria WPtel: [address] [place], [place] [id number] (15 min) Moderate 02/17/2017 Patient Education: Patient Medication Summary Completed 02/17/2017 Care Plan: Referral Order SNOMED-CT : [id number] Pending 02/17/2017 Appointment: Diamond Sawyer WPtel: [address] [place], [place] [phone] (30 min) Complex 01/02/2017 Patient Education: Patient Medication Summary Completed 01/02/2017 [facility] [phone] [phone] [place] (15 min) Moderate 12/05/2016 Patient Education: Patient Medication Summary Completed 12/05/2016 Patient Education: Hypertension Completed 12/05/2016 App[facility]ment: [facility] [phone] [facility] [place] [facility] - Annual Wellness Visit 08/21/2016 Patient Education: Patient Medication Summary Completed 08/21/2016 Appointment: Maria Luisa Echeverria WPtel: [facility] [place] (15 min) Moderate 08/19/2016 Patient Education: Patient Medication Summary Completed 08/19/2016 Appointment: Ashley Wooten WPtel: [facility] [place] (15 min) Moderate 05/20/2016 Patient Education: Patient Medication Summary Completed 05/20/2016 Care Plan: Free T4 Pending 03/07/2016 Care Plan: Tsh Pending 03/07/2016 Appointment: Injection 02/20/2016 Patient Education: Patient Medication Summary Completed 02/20/2016 Appointment: Maria Luisa Echeverria WPtel: [facility] [place] (15 min) Moderate 01/23/2016 Patient Education: Patient Medication Summary Completed 01/23/2016 Appointment: [facility] [place] (15 min) Moderate 09/26/2015 Patient Education: Patient Medication Summary Completed 09/26/2015 Patient Education: Patient Medication Summary Completed 08/23/2015 Appointment: Maria Luisa [facility]verria [facility] [place] (15 min) Moderate 08/22/2015 Appointment: Maria Luisa Echeverria WPtel: [facility] [place] (15 min) Moderate 08/15/2015 Appointment: [facility] - Annual Wellness Visit 07/19/2015 Patient Education: Patient Medication Summary Completed 07/19/2015 Appointment: [facility] [phone] [phone] (15 min) Moderate 04/17/2015 Patient Education: Patient Medication Summary Completed 04/17/2015 Patient Education: Hypertension Completed 04/17/2015 Appointment: (15 min) Moderate 03/15/2015 Patient Education: Patient Medication Summary Completed 03/15/2015 Patient Education: Hypertension Completed 03/15/2015 Appointment: (15 min) Moderate 02/06/2015 Patient Education: Patient Medication Summary Completed 02/06/2015 Patient Education: Hypertension Completed 02/06/2015 Appointment: [facility] [phone] [facility] (15 min) Moderate 12/13/2014 Patient Education: Patient Medication Summary Completed 12/13/2014 Appointment: Mraia Luisa [facility] [phone] [facility] [place] ([place] New Patient 10/11/2014 Appointment: Maria Luisa [facility]cheverria [facility] (15 min) Moderate 10/11/2014 Patient Education: Patient Medication Summary Completed 10/11/2014 Patient Education: Hypertension Completed 10/11/2014 Referral: Lizz Andujar Referral Completed Instructions No Instructions
--- OUTSIDE RECORDS SUMMARY | 2017-05-27 12:49 | XMS REPORT | CCD ---
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 Role Phone PP Unavailable CCM Unavailable Summary Purpose Interface Exchange Insurance Providers Payer name Policy type / Coverage type Covered democrat ID Effective Begin Date Effective End Date WPS Medicare Part B Medicare Part B [id number] Unknown Unknown [facility] Medicare Part B [id number] Unknown Unknown Family history Mother Diagnosis Age [...] Unknown 5 10/11/[address]: 906579454 Never smoker 10/11/[address]: 081329737 Never drinks alcohol 10/11/2014 Allergies, Adverse Reactions, [...] Start Date Stop Date Status Fill Instructions losartan 100 mg tablet RxNorm: 025657 TAKE ONE TABLET BY MOUTH DAILY 05/11/2017 05/05/2018 Active OneTouch Ultra Test strips RxNorm: TEST 1 TIME DAILY 201707/07/2018 Active clonazepam 0.5 mg tablet RxNorm: 756323 Tablet(s) TAKE 2 TABLETS BY MOUTH AT BEDTIME NEEDED 04/14/2017 07/12/2017 Active Lomotil 2.5 mg-0.025 mg tablet RxNorm: 2593629 1 Tablet(s) PO daily as needed 03/17/2017 09/12/2017 Active Mirapex 0.5 mg tablet RxNorm: 816677 TAKE ONE TABLET BY MOUTH EVERY NIGHT AT BEDTIME 01/19/2017 07/17/2017 Active clonazepam 0.5 mg tablet RxNorm: 789028 Tablet(s) TAKE 2 TABLETS BY MOUTH AT BEDTIME NEEDED 01/12/2017 04/09/2017 Inactive tramadol 50 mg tablet RxNorm: 501661 1-2 Tablet(s) PO Q6 PRN pain 12/31/2016 01/04/2017 Inactive folic acid 1 mg tablet RxNorm: 291103 TAKE ONE TABLET BY MOUTH DAILY 12/24/2016 12/18/2017 Active tramadol 50 mg tablet RxNorm: 359241 1-2 Tablet(s) PO Q6 PRN pain 12/12/2016 12/16/2016 Inactive tramadol 50 mg tablet RxNorm: 031147 1-2 Tablet(s) PO Q6 PRN pain 12/12/2016 12/11/2016 Inactive clonazepam 0.5 mg tablet RxNorm: 360815 Tablet(s) TAKE 2 TABLETS BY MOUTH AT BEDTIME NEEDED 12/09/2016 01/11/2017 Inactive pravastatin 80 mg tablet RxNorm: 883662 TAKE ONE TABLET BY MOUTH EVERY EVENING 11/11/2016 08/07/2017 Active Prozac 40 mg capsule RxNorm: 240361 TAKE ONE CAPSULE BY MOUTH DAILY 10/29/2016 07/25/2017 Active Mirapex 0.5 mg tablet RxNorm: 656735 TAKE ONE TABLET BY MOUTH EVERY NIGHT AT BEDTIME 10/29/2016 01/18/2017 Inactive spironolactone 25 mg tablet RxNorm: 909962 TAKE ONE TABLET BY MOUTH DAILY 10/29/2016 12/04/2016 Inactive clonazepam 0.5 mg tablet RxNorm: 207913 Tablet(s) TAKE 2 TABLETS BY MOUTH AT BEDTIME NEEDED 09/24/2016 11/22/2016 Inactive Lomotil 2.5 mg-0.025 mg tablet RxNorm: 5279534 1 Tablet(s) PO daily as needed 07/30/2016 01/23/2017 Inactive sucralfate 1 gram tablet RxNorm: 496300 TAKE ONE-HALF TABLET BY MOUTH TWO TIMES A DAY ONE HOUR BEFORE MEALS 07/28/201610/25 Inactive losartan 100 mg tablet RxNorm: 829505 TAKE ONE TABLET BY MOUTH DAILY 07/28/2016 01/23/2017 Inactive Lialda 1.2 gram tablet,delayed release RxNorm: 044710 3 Tablet(s) PO daily 07/02/2016 10/29/2016 Inactive Mirapex 0.5 mg tablet RxNorm: 651740 TAKE ONE TABLET BY MOUTH EVERY NIGHT AT BEDTIME 06/27/2016 10/24/2016 Inactive clonazepam 0.5 mg tablet RxNorm: 813961 Tablet(s) TAKE 2 TABLETS BY MOUTH AT BEDTIME NEEDED 06/27/2016 01/11/2017 Inactive clonazepam 0.5 mg tablet RxNorm: 288725 Tablet(s) TAKE 2 TABLETS BY MOUTH AT BEDTIME NEEDED 04/29/2016 06/25/2016 Inactive folic acid 1 mg tablet RxNorm: 240796 TAKE ONE TABLET BY MOUTH DAILY 02/28/2016 11/23/2016 Inactive clonazepam 0.5 mg tablet RxNorm: 814286 Tablet(s) TAKE 2 TABLETS BY MOUTH AT BEDTIME NEEDED 02/26/2016 01/11/2017 Inactive OneTouch Ultra Test strips RxNorm: TEST ONCE DAILY 02/25/2016 08/22/2016 Inactive sucralfate 1 gram tablet RxNorm: 933380 TAKE ONE-HALF TABLET BY MOUTH TWO TIMES A DAY ONE HOUR BEFORE MEALS 01/28/201607/25 Inactive Mirapex 0.5 mg tablet RxNorm: 014125 TAKE ONE TABLET BY MOUTH EVERY NIGHT AT BEDTIME 01/28/2016 06/25/2016 Inactive spironolactone 25 mg tablet RxNorm: 504845 TAKE ONE TABLET BY MOUTH DAILY 01/28/2016 10/23/2016 Inactive Klor-Con M20 mEq tablet,extended release RxNorm: 817659 TAKE ONE TABLET BY MOUTH THREE TIMES A DAY 12/05/2015 08/30/2016 Inactive Lomotil 2.5 mg-0.025 mg tablet RxNorm: 7346774 1 Tablet(s) PO daily as needed 12/05/2015 01/11/2017 Inactive losartan 100 mg tablet RxNorm: 377893 TAKE ONE TABLET BY MOUTH DAILY 11/22/2015 07/27/2016 Inactive amlodipine 5 mg tablet RxNorm: 570900 TAKE ONE TABLET BY MOUTH DAILY 11/13/2015 11/06/2016 Inactive Refill not appropriate clonazepam 0.5 mg tablet RxNorm: 968215 Tablet(s) TAKE 2 TABLETS BY MOUTH AT BEDTIME NEEDED 11/08/2015 01/11/2017 Inactive clonazepam 0.5 mg tablet RxNorm: 862539 Tablet(s) TAKE 2 TABLETS BY MOUTH AT BEDTIME NEEDED 11/02/2015 01/29/2016 Inactive Prozac 40 mg capsule RxNorm: 954431 1 Capsule(s) PO daily 10/3010/24/2016 Inactive pravastatin 80 mg tablet RxNorm: 742431 1 Tablet(s) PO QPM 10/23/2016 Inactive OneTouch Ultra Test strips RxNorm: TEST ONCE DAILY 10/30/2015 01/27/2016 Inactive Imuran 50 mg tablet RxNorm: 585974 1.5 (75) Tablet(s) PO daily 08/17/2015 08/10/2016 Inactive K75.4 clonazepam 0.5 mg tablet RxNorm: 361990 Tablet(s) TAKE 2 TABLETS BY MOUTH AT BEDTIME NEEDED 08/10/2015 01/11/2017 Inactive Imuran 50 mg tablet RxNorm: 815858 1.5 (75) Tablet(s) PO daily 08/10/2015 08/16/2015 Inactive OneTouch Ultra Test strips RxNorm: TEST ONCE DAILY 08/09/2015 10/29/2015 Inactive Vitamin D2 50,000 unit capsule RxNorm: 614182 1 Capsule(s) PO QW 08/07/2015 01/11/2017 Inactive Mirapex 0.5 mg tablet RxNorm: 429004 Tablet(s) TAKE ONE TABLET BY MOUTH EVERY NIGHT AT BEDTIME 07/19/2015 01/14/2016 Inactive Lomotil 2.5 mg-0.025 mg tablet RxNorm: 3534779 1 Tablet(s) PO daily as needed 06/06/2015 01/11/2017 Inactive clonazepam 0.5 mg tablet RxNorm: 544697 Tablet(s) TAKE 2 TABLETS BY MOUTH AT BEDTIME NEEDED 05/10/2015 08/06/2015 Inactive sucralfate 1 gram tablet RxNorm: 751975 TAKE ONE-HALF TABLET BY MOUTH TWO TIMES A DAY ONE HOUR BEFORE MEALS 05/04/201501/26 Inactive meclizine 25 mg tablet RxNorm: 180928 1/2-1 Tablet(s) PO Q6 PRN 03/15/2015 No Stop Date Active spironolactone 25 mg tablet RxNorm: 360985 1 Tablet(s) PO daily 03/14/2015 01/27/2016 Inactive spironolactone 25 mg tablet RxNorm: 558109 1 Tablet(s) PO daily 03/14/2015 03/13/2015 Inactive clonazepam 0.5 mg tablet RxNorm: 723914 TAKE 2 TABLETS BY MOUTH AT BEDTIME NEEDED 02/08/2015 05/02/2015 Inactive folic acid 1 mg tablet RxNorm: 625603 1 Tablet(s) PO daily 02/01/2016 Inactive clonazepam 0.5 mg tablet RxNorm: 564522 TAKE 2 TABLETS BY MOUTH AT BEDTIME NEEDED 02/06/2015 02/08/2015 Inactive amlodipine 10 mg tablet RxNorm: 753347 1/2 Tablet(s) PO daily 02/06/2015 07/18/2015 Inactive this replaces her 5mg pill OneTouch Ultra Test strips RxNorm: TEST ONCE DAILY 01/30/2015 07/28/2015 Inactive Mirapex 0.5 mg tablet RxNorm: 445223 TAKE ONE TABLET BY MOUTH EVERY NIGHT AT BEDTIME 01/29/2015 07/18/2015 Inactive sucralfate 1 gram tablet RxNorm: 867441 TAKE ONE-HALF TABLET BY MOUTH TWO TIMES A DAY ONE HOUR BEFORE MEALS 01/11/201504/10 Inactive OneTouch Ultra Test strips RxNorm: 1 Miscellaneous daily 11/1401/29/2015 Inactive amlodipine 10 mg tablet RxNorm: 725510 1 Tablet(s) PO daily 02/05/2015 Inactive this replaces her 5mg pill clonazepam 0.5 mg tablet RxNorm: 444608 2 Tablet(s) PO QHS 10/201402/05/2015 Inactive sucralfate 1 gram tablet RxNorm: 316846 1/2 Tablet(s) PO BID 1 hour before meal 10/11/2014 01/08/2015 Inactive losartan 100 mg tablet RxNorm: 941911 1 Tablet(s) PO daily 04/201410/05/2015 Inactive amlodipine 5 mg tablet RxNorm: 021204 1 Tablet(s) PO daily 04/201410/30/2014 Inactive Imuran 50 mg tablet RxNorm: 076024 1.5 (75) Tablet(s) PO daily 10/11/2014 08/09/2015 Inactive Lomotil 2.5 mg-0.025 mg tablet RxNorm: 5902571 1 Tablet(s) PO daily as needed 10/11/2014 06/05/2015 Inactive pravastatin 80 mg tablet RxNorm: 602747 1 Tablet(s) PO QPM 04/201410/05/2015 Inactive Klor-Con M20 mEq tablet,extended release RxNorm: 929271 1 Tablet(s) PO TID 10/11/2014 10/05/2015 Inactive Mirapex 0.5 mg tablet RxNorm: 524265 1 Tablet(s) PO QHS 201401/28/2015 Inactive Prozac 40 mg capsule RxNorm: 788663 1 Capsule(s) PO daily 10/1110/05/2015 Inactive Plavix 75 mg tablet RxNorm: 755794 1 Tablet(s) PO daily No Start Date Active Calcium + D oral RxNorm: 416243 oral No Start Date Active timolol 0.5 % eye drops RxNorm: 001529 1 Drop(s) OPH BID No Start Date Active Lumigan 0.01 % eye drops RxNorm: 8474031 1 Drop(s) OPH QHS No Start Date Active Prolia 60 mg/mL subcutaneous syringe RxNorm: 673176 1 Milliliter(s) SQ every 6 months No Start Date Active Alavert 10 mg disintegrating tablet RxNorm: 107133 1 Tablet(s) PO daily as needed No Start Date Active Vitamin D2 50,000 unit capsule RxNorm: 508805 1 Capsule(s) PO QW No Start Date 08/06/2015 Inactive OneTouch Ultra Test strips RxNorm: 1 Miscellaneous daily No Start Date 11/13/2014 Inactive Lomotil 2.5 mg-0.025 mg tablet RxNorm: 6016110 1 Tablet(s) PO daily as needed No Start Date 10/10/2014 Inactive folic acid 1 mg tablet RxNorm: 294669 1 Tablet(s) PO daily No Start Date 02/06/2015 Inactive amlodipine 5 mg tablet RxNorm: 280348 1 Tablet(s) PO daily No Start Date 10/10/2014 Inactive Imuran 50 mg tablet RxNorm: 427864 1 1/2 (75) Tablet(s) PO daily No Start Date 10/10/2014 Inactive Boniva 3 mg/3 mL intravenous syringe RxNorm: 610202 Milliliter(s) IV No Start Date 07/18/2015 Inactive potassium chloride 20 meq RxNorm: 087868 1 PO TID No Start Date 10/10/2014 Inactive sucralfate 1 gram tablet RxNorm: 842662 1/2 Tablet(s) PO BID 1 hour before meal No Start Date 10/10/2014 Inactive losartan 100 mg tablet RxNorm: 602341 1 Tablet(s) PO daily No Start Date 10/10/2014 Inactive Vitamin D3 2,000 unit tablet RxNorm: 760370 1 Tablet(s) PO daily No Start Date 08/23/2015 Inactive Prozac 40 mg capsule RxNorm: 732063 1 Capsule(s) PO daily No Start Date 10/10/2014 Inactive clonazepam 0.5 mg tablet RxNorm: 808745 2 Tablet(s) PO QHS No Start Date 10/16/2014 Inactive amlodipine 5 mg tablet RxNorm: 590346 1 Tablet(s) PO daily No Start Date 08/22/2015 Inactive pravastatin 80 mg tablet RxNorm: 720428 1 Tablet(s) PO QPM No Start Date 10/10/2014 Inactive Lialda 1.2 gram tablet,delayed release RxNorm: 951694 3 Tablet(s) PO daily No Start Date 07/01/2016 Inactive Medication Administered No Medication Administered data Immunizations Vaccine Codes Date Status Pneumococcal (Adult) CVX: 133 02/20/2016 completed Influenza CVX: 141 01/23/2016 completed Assessments Condition Codes Effective Dates Muscle weakness (generalized) ICD-10: M62.81 ICD-9: 728.87 02/17/2017 Mixed hyperlipidemia ICD-10: E78.2 ICD-9: 272.4 02/17/2017 Essential (primary) hypertension ICD-10: I10 ICD-9: 401.9 02/17/2017 Gastro-esophageal reflux disease without esophagitis ICD-10 : K21.9 ICD-9: 530.81 12/05/2016 Cerebral infarction, unspecified ICD-10: I63.9 ICD-9: 434.91 12/05/2016 Allergic rhinitis due to pollen ICD-10: J30.1 ICD-9: 477.0 12/05/2016 Encounter for general adult medical examination with abnormal findings ICD-10: Z00.01 ICD-9: V70.0 08/21/2016 Type 2 diabetes mellitus without complications ICD-10: E11.9 ICD-9: 250.00 08/19/2016 Encounter for immunization ICD-10: Z23 ICD-9: V03.82 02/20/2016 Abnormal weight gain ICD-10: R63.5 ICD-9: 783.1 01/23/2016 Family history of other endocrine, nutritional and metabolic diseases ICD-10: Z83.49 ICD-9: V18.19 01/23/2016 Actinic keratosis ICD-10: L57.0 ICD-9: 702.0 01/23/2016 Other fatigue ICD-10: R53.83 ICD-9: 780.79 01/23/2016 Encounter for immunization ICD-10: Z23 ICD-9: V04.81 01/23/2016 Vitamin D deficiency, unspecified ICD-10: E55.9 ICD-9: 268.9 08/23/2015 Other depressive episodes ICD-10: F32.8 ICD-9: 311 08/23/2015 Encounter for general adult medical examination without abnormal findings ICD-10: Z00.00 ICD-9: V70.0 07/19/2015 Benign paroxysmal vertigo, unspecified ear ICD-10: H81.10 ICD-9: 386.11 04/17/2015 Edema, unspecified ICD-10: R60.9 ICD-9: 782.3 02/06/2015 RESTLESS LEGS SYNDROME ICD-9: 333.94 05/2014 ESSENTIAL HYPERTENSION ICD-9: 401.9 12/13 HYPERLIPIDEMIA ICD-9: 272.4 12/13/2014 ESOPHAGEAL REFLUX ICD-9: 530.81 2014 DEPRESSIVE DISORDER NEC ICD-9: 311 2014 Reason For Visit Reason For Visit Effective [...] 05/08/2017 Metabolic Ord15 CALCIUM 8.8 mg/dL 05/08/2017 Cbc With Differential Ord2 WBC 7.45 K/ul 04/14/2017 Cbc With Differential Ord2 RBC 4.20 M/ul 04/14/2017 Cbc With Differential Ord2 HGB 13.4 g/dl 04/14/2017 Cbc With Differential Ord2 Neut% 70.8 % 04/14/2017 Cbc With Differential Ord2 HCT 40.3 % 04/14/2017 Cbc With Differential Ord2 MCV 96.0 fl 04/14/2017 Cbc With Differential Ord2 Lymph% 19.7 % 04/14/2017 Cbc With Differential Ord2 MCH 31.9 pg 04/14/2017 Cbc With Differential Ord2 Door% 9.1 % 04/14/2017 Cbc With Differential Ord2 MCHC 33.3 pg 04/14/2017 Cbc With Differential Ord2 Eos% 0.1 % 04/14/2017 Cbc With Differential Ord2 PLT 207 K/ul 04/14/2017 Cbc With Differential Ord2 Baso% 0.3 % 04/14/2017 Cbc With Differential Ord2 RDW 13.3 % 04/14/2017 Cbc With Differential Ord2 Neut ABS# 5.27 K/ul 04/14/2017 Cbc With Differential Ord2 Lymph ABS# 1.47 K/ul 04/14/2017 Cbc With Differential Ord2 Door ABS# 0.7 K/ul 04/14/2017 Cbc With Differential Ord2 Eos ABS# 0.0 K/ul 04/14/2017 Cbc With Differential Ord2 Baso ABS# 0.0 K/ul 04/14/2017 Comp Metabolic Mwg745 NA 136 mEq/L 04/14/2017 Comp Metabolic Lvn827 K 4.4 mEq/L 04/14/2017 Comp Metabolic Bka311 CL 104 mEq/L 04/14/2017 Comp Metabolic Olb458 CO2 21.0 mEq/L 04/14/2017 Comp Metabolic Ivr484 ANION GAP 15 04/14/2017 Comp Metabolic Tbk767 GLUCOSE 112 mg/dL 04/14/2017 Comp Metabolic Vvy018 Creat 1.1 mg/dL 04/14/2017 Comp Metabolic Hdn553 eGFR 51 ml/min/1.73m2 04/14/2017 Comp Metabolic Ain132 BUN 16 mg/dL 04/14/2017 Comp Metabolic Tmb042 B/C Ratio 14.3 Ratio 04/14/2017 Comp Metabolic Hnl588 CALCIUM 8.9 mg/dL 04/14/2017 Comp Metabolic Cng366 ALK PHOS 39 U/L 04/14/2017 Comp Metabolic Ufd831 AST(SGOT) 24 U/L 04/14/2017 Comp Metabolic Ywj965 ALT(SGPT) 18 U/L 04/14/2017 Comp Metabolic Hvb350 BILI T 0.5 mg/dL 04/14/2017 Comp Metabolic Ozp308 ALBUMIN 4.3 g/dL 04/14/2017 Comp Metabolic Kck986 TPRO 6.8 g/dL 04/14/2017 Comp Metabolic Sih787 GLOB 2.5 g/dL 04/14/2017 Comp Metabolic Jqz259 A/G Ratio 1.7 Ratio 04/14/2017 Comp Metabolic Ozo547 Osmo 274 mOsmo 04/14/2017 Vitamin D 25 Oh Pbx4355 VITAMIN D, 25 HYDROXY 29.88 ng/mL Sed Rate Ord21 ESR 15 mm/hr 04/14/2017 C-Reactive Protein Qnt Crqnt CRP 0.1 mg/dl 04/14/2017 Vitamin D 25 Oh Dlq1487 VITAMIN D, 25 HYDROXY 36.00 ng/mL Sed Rate Ord21 ESR 16 mm/hr 02/09/2017 Cbc With Differential Ord2 WBC 7.27 K/ul 02/09/2017 Cbc With Differential Ord2 RBC 4.19 M/ul 02/09/2017 Cbc With Differential Ord2 HGB 13.6 g/dl 02/09/2017 Cbc With Differential Ord2 Neut% 75.8 % 02/09/2017 Cbc With Differential Ord2 HCT 39.7 % 02/09/2017 Cbc With Differential Ord2 MCV 94.7 fl 02/09/2017 Cbc With Differential Ord2 Lymph% 14.6 % 02/09/2017 Cbc With Differential Ord2 MCH 32.5 pg 02/09/2017 Cbc With Differential Ord2 Door% 8.7 % 02/09/2017 Cbc With Differential Ord2 Eos% 0.6 % 02/09/2017 Cbc With Differential Ord2 MCHC 34.3 pg 02/09/2017 Cbc With Differential Ord2 Baso% 0.3 % 02/09/2017 Cbc With Differential Ord2 PLT 221 K/ul 02/09/2017 Cbc With Differential Ord2 RDW 13.4 % 02/09/2017 Cbc With Differential Ord2 Neut ABS# 5.52 K/ul 02/09/2017 Cbc With Differential Ord2 Lymph ABS# 1.06 K/ul 02/09/2017 Cbc With Differential Ord2 Door ABS# 0.6 K/ul 02/09/2017 Cbc With Differential Ord2 Eos ABS# 0.0 K/ul 02/09/2017 Cbc With Differential Ord2 Baso ABS# 0.0 K/ul 02/09/2017 Comp Metabolic Wqx713 NA 135 mEq/L 02/09/2017 Comp Metabolic Zbl167 K 4.4 mEq/L 02/09/2017 Comp Metabolic Knl110 CL 102 mEq/L 02/09/2017 Comp Metabolic Zgb579 CO2 23.0 mEq/L 02/09/2017 Comp Metabolic Lcy659 ANION GAP 14 02/09/2017 Comp Metabolic Hrz328 GLUCOSE 98 mg/dL 02/09/2017 Comp Metabolic Wgd409 Creat 0.9 mg/dL 02/09/2017 Comp Metabolic Ion624 eGFR 65 ml/min/1.73m2 02/09/2017 Comp Metabolic Akn115 BUN 18 mg/dL 02/09/2017 Comp Metabolic Gsy983 B/C Ratio 19.8 Ratio 02/09/2017 Comp Metabolic Jrq764 CALCIUM 9.2 mg/dL 02/09/2017 Comp Metabolic Sve705 ALK PHOS 42 U/L 02/09/2017 Comp Metabolic Vjg606 AST(SGOT) 24 U/L 02/09/2017 Comp Metabolic Diu193 ALT(SGPT) 16 U/L 02/09/2017 Comp Metabolic Osx286 BILI T 0.4 mg/dL 02/09/2017 Comp Metabolic Wwa485 ALBUMIN 4.4 g/dL 02/09/2017 Comp Metabolic Ftp922 TPRO 7.0 g/dL 02/09/2017 Comp Metabolic Upm802 GLOB 2.6 g/dL 02/09/2017 Comp Metabolic Fwf126 A/G Ratio 1.7 Ratio 02/09/2017 Comp Metabolic Lie198 Osmo 272 mOsmo 02/09/2017 C-Reactive Protein Qnt Crqnt CRP 0.1 mg/dl 02/09/2017 %Hba1C Fyy560 % HbA1c 21243-3 6.1 % 05/20/2016 %Hba1C Wsv226 Gluc Ave 128 mg/dL 05/20/2016 Lipid Ord30 CHOL 212 mg/dL 05/20/2016 Lipid Ord30 HDL 52.0 mg/dl 05/20/2016 Lipid Ord30 TRIG 149 mg/dL 05/20/2016 Lipid Ord30 LDL 130 mg/dL 05/20/2016 Lipid Ord30 C/HDL 4.1 Ratio 05/20/2016 Comp Metabolic Jed171 NA 134 mEq/L 04/21/2016 Comp Metabolic Faz904 K 5.0 mEq/L 04/21/2016 Comp Metabolic Lsh143 CL 103 mEq/L 04/21/2016 Comp Metabolic Exz369 CO2 24.0 mEq/L 04/21/2016 Comp Metabolic Chi864 ANION GAP 12 04/21/2016 Comp Metabolic Jiu780 GLUCOSE 122 mg/dL 04/21/2016 Comp Metabolic Xns294 Creat 1.1 mg/dL 04/21/2016 Comp Metabolic Loq074 eGFR 52 ml/min/1.73m2 04/21/2016 Comp Metabolic Jzw624 BUN 24 mg/dL 04/21/2016 Comp Metabolic Tck579 B/C Ratio 21.6 Ratio 04/21/2016 Comp Metabolic Pzl052 CALCIUM 9.7 mg/dL 04/21/2016 Comp Metabolic Pae816 ALK PHOS 51 U/L 04/21/2016 Comp Metabolic Vyb841 AST(SGOT) 23 U/L 04/21/2016 Comp Metabolic Txb416 ALT(SGPT) 17 U/L 04/21/2016 Comp Metabolic Nlo806 BILI T 0.5 mg/dL 04/21/2016 Comp Metabolic Fws677 ALBUMIN 4.4 g/dL 04/21/2016 Comp Metabolic Mcf312 TPRO 7.3 g/dL 04/21/2016 Comp Metabolic Dvj428 GLOB 2.9 g/dL 04/21/2016 Comp Metabolic Sxr660 A/G Ratio 1.5 Ratio 04/21/2016 Comp Metabolic Bwp344 Osmo 274 mOsmo 04/21/2016 Cbc With Differential Ord2 WBC 6.49 K/ul 04/21/2016 Cbc With Differential Ord2 RBC 4.28 M/ul 04/21/2016 Cbc With Differential Ord2 HGB 13.7 g/dl 04/21/2016 Cbc With Differential Ord2 HCT 40.9 % 04/21/2016 Cbc With Differential Ord2 Neut% 68.1 % 04/21/2016 Cbc With Differential Ord2 Lymph% 21.4 % 04/21/2016 Cbc With Differential Ord2 MCV 95.6 fl 04/21/2016 Cbc With Differential Ord2 MCH 32.0 pg 04/21/2016 Cbc With Differential Ord2 Door% 9.1 % 04/21/2016 Cbc With Differential Ord2 MCHC 33.5 pg 04/21/2016 Cbc With Differential Ord2 Eos% 1.1 % 04/21/2016 Cbc With Differential Ord2 Baso% 0.3 % 04/21/2016 Cbc With Differential Ord2 PLT 190 K/ul 04/21/2016 Cbc With Differential Ord2 RDW 13.3 % 04/21/2016 Cbc With Differential Ord2 Neut ABS# 4.42 K/ul 04/21/2016 Cbc With Differential Ord2 Lymph ABS# 1.39 K/ul 04/21/2016 Cbc With Differential Ord2 Door ABS# 0.6 K/ul 04/21/2016 Cbc With Differential Ord2 Eos ABS# 0.1 K/ul 04/21/2016 Cbc With Differential Ord2 Baso ABS# 0.0 K/ul 04/21/2016 Vitamin D 25 Oh Qcx6728 VITAMIN D, 25 HYDROXY 51.65 ng/mL Bili D Ord93 BILI D 0.1 mg/dL 04/21/2016 Bili D Ord93 BILI I 0.4 mg/dL 04/21/2016 Sed Rate Ord21 ESR 26 mm/hr 04/21/2016 C-Reactive Protein Qnt Crqnt CRP 0.1 mg/dl 04/21/2016 Comp Metabolic Nao541 NA 133 mEq/L 03/18/2016 Comp Metabolic Bpx444 K 4.9 mEq/L 03/18/2016 Comp Metabolic Gxu044 CL 102 mEq/L 03/18/2016 Comp Metabolic Iof861 CO2 25.0 mEq/L 03/18/2016 Comp Metabolic Bav385 ANION GAP 11 03/18/2016 Comp Metabolic Rzh122 GLUCOSE 114 mg/dL 03/18/2016 Comp Metabolic Fmj152 Creat 1.1 mg/dL 03/18/2016 Comp Metabolic Cqq931 eGFR 54 ml/min/1.73m2 03/18/2016 Comp Metabolic Iml479 BUN 23 mg/dL 03/18/2016 Comp Metabolic Pii437 B/C Ratio 21.3 Ratio 03/18/2016 Comp Metabolic Sbs331 CALCIUM 9.7 mg/dL 03/18/2016 Comp Metabolic Nzb798 ALK PHOS 54 U/L 03/18/2016 Comp Metabolic Jba613 AST(SGOT) 21 U/L 03/18/2016 Comp Metabolic Jec689 ALT(SGPT) 15 U/L 03/18/2016 Comp Metabolic Kgv491 BILI T 0.4 mg/dL 03/18/2016 Comp Metabolic Kkh870 ALBUMIN 4.4 g/dL 03/18/2016 Comp Metabolic Xba636 TPRO 7.4 g/dL 03/18/2016 Comp Metabolic Nsd192 GLOB 3.0 g/dL 03/18/2016 Comp Metabolic Pfa809 A/G Ratio 1.5 Ratio 03/18/2016 Comp Metabolic Exc980 Osmo 271 mOsmo 03/18/2016 Sed Rate Ord21 ESR 26 mm/hr 02/13/2016 Cbc With Differential Ord2 WBC 6.31 [...] 31.6 pg 02/13/2016 Cbc With Differential Ord2 Door% 9.7 % 02/13/2016 Cbc With Differential Ord2 Eos% 0.8 % 02/13/2016 Cbc With Differential Ord2 MCHC 33.7 pg 02/13/2016 Cbc With Differential Ord2 Baso% 0.3 % 02/13/2016 Cbc With Differential Ord2 PLT 203 K/ul 02/13/2016 Cbc With Differential Ord2 RDW 13.6 % 02/13/2016 Cbc With Differential Ord2 Neut ABS# 4.46 K/ul 02/13/2016 Cbc With Differential Ord2 Lymph ABS# 1.17 K/ul 02/13/2016 Cbc With Differential Ord2 Door ABS# 0.6 K/ul 02/13/2016 Cbc With Differential Ord2 Eos ABS# 0.1 K/ul 02/13/2016 Cbc With Differential Ord2 Baso ABS# 0.0 K/ul 02/13/2016 C-Reactive Protein Qnt Crqnt CRP 0.1 mg/dl 02/13/2016 Comp Metabolic Mwa382 NA 133 mEq/L 02/13/2016 Comp Metabolic Wzw016 K 4.8 mEq/L 02/13/2016 Comp Metabolic Qxq310 CL 104 mEq/L 02/13/2016 Comp Metabolic Dwq511 CO2 23.0 mEq/L 02/13/2016 Comp Metabolic Beh542 ANION GAP 11 02/13/2016 Comp Metabolic Wck606 GLUCOSE 104 mg/dL 02/13/2016 Comp Metabolic Xjz623 Creat 1.0 mg/dL 02/13/2016 Comp Metabolic Rad447 eGFR 56 ml/min/1.73m2 02/13/2016 Comp Metabolic Pin197 BUN 25 mg/dL 02/13/2016 Comp Metabolic Tgd622 B/C Ratio 24.0 Ratio 02/13/2016 Comp Metabolic Jwv215 CALCIUM 9.1 mg/dL 02/13/2016 Comp Metabolic Zde238 ALK PHOS 43 U/L 02/13/2016 Comp Metabolic Aht656 AST(SGOT) 21 U/L 02/13/2016 Comp Metabolic Lso072 ALT(SGPT) 17 U/L 02/13/2016 Comp Metabolic Ylm860 BILI T 0.4 mg/dL 02/13/2016 Comp Metabolic Ped789 ALBUMIN 4.3 g/dL 02/13/2016 Comp Metabolic Zdx131 TPRO 7.1 g/dL 02/13/2016 Comp Metabolic Zbl333 GLOB 2.9 g/dL 02/13/2016 Comp Metabolic Euz932 A/G Ratio 1.5 Ratio 02/13/2016 Comp Metabolic Pue566 Osmo 271 mOsmo 02/13/2016 Vitamin D 25 Oh Qvm3380 VITAMIN D, 25 HYDROXY 46.10 ng/mL Vitamin D 25 Oh Pku5798 VITAMIN D, 25 HYDROXY 54.28 ng/mL Cbc With Differential Ord2 WBC 7.45 K/ul 10/08/2015 Cbc With Differential Ord2 RBC 3.98 M/ul 10/08/2015 Cbc With Differential Ord2 HGB 12.5 g/dl 10/08/2015 Cbc With Differential Ord2 HCT 38.2 % 10/08/2015 Cbc With Differential Ord2 Neut% 72.2 % 10/08/2015 Cbc With Differential Ord2 MCV 96.0 fl 10/08/2015 Cbc With Differential Ord2 Lymph% 16.6 % 10/08/2015 Cbc With Differential Ord2 Door% 10.5 % 10/08/2015 Cbc With Differential Ord2 MCH 31.4 pg 10/08/2015 Cbc With Differential Ord2 MCHC 32.7 pg 10/08/2015 Cbc With Differential Ord2 Eos% 0.4 % 10/08/2015 Cbc With Differential Ord2 Baso% 0.3 % 10/08/2015 Cbc With Differential Ord2 PLT 189 K/ul 10/08/2015 Cbc With Differential Ord2 RDW 13.2 % 10/08/2015 Cbc With Differential Ord2 Neut ABS# 5.38 K/ul 10/08/2015 Cbc With Differential Ord2 Lymph ABS# 1.24 K/ul 10/08/2015 Cbc With Differential Ord2 Door ABS# 0.8 K/ul 10/08/2015 Cbc With Differential Ord2 Eos ABS# 0.0 K/ul 10/08/2015 Cbc With Differential Ord2 Baso ABS# 0.0 K/ul 10/08/2015 C-Reactive Protein Qnt Crqnt CRP 1.0 mg/dl 10/08/2015 Comp Metabolic Tnt959 NA 132 mEq/L 10/08/2015 Comp Metabolic Fre045 K 4.7 mEq/L 10/08/2015 Comp Metabolic Bqo754 CL 101 mEq/L 10/08/2015 Comp Metabolic Bfn894 CO2 24.0 mEq/L 10/08/2015 Comp Metabolic Pka031 ANION GAP 12 10/08/2015 Comp Metabolic Oso976 GLUCOSE 85 mg/dL 10/08/2015 Comp Metabolic Yxc475 Creat 0.9 mg/dL 10/08/2015 Comp Metabolic Ukg519 eGFR 66 ml/min/1.73m2 10/08/2015 Comp Metabolic Emn740 BUN 29 mg/dL 10/08/2015 Comp Metabolic Hea926 B/C Ratio 32.2 Ratio 10/08/2015 Comp Metabolic Ofi764 CALCIUM 9.1 mg/dL 10/08/2015 Comp Metabolic Mho273 ALK PHOS 40 U/L 10/08/2015 Comp Metabolic Dnq877 AST(SGOT) 18 U/L 10/08/2015 Comp Metabolic Byu139 ALT(SGPT) 14 U/L 10/08/2015 Comp Metabolic Yok441 BILI T 0.3 mg/dL 10/08/2015 Comp Metabolic Chv131 ALBUMIN 4.1 g/dL 10/08/2015 Comp Metabolic Wax180 TPRO 6.8 g/dL 10/08/2015 Comp Metabolic Hbt920 GLOB 2.7 g/dL 10/08/2015 Comp Metabolic Fsk297 A/G Ratio 1.5 Ratio 10/08/2015 Comp Metabolic Zhs918 Osmo 270 mOsmo 10/08/2015 Sed Rate Ord21 ESR 20 mm/hr 10/08/2015 Tsh Ord6 hTSH II 1.72 uIU/mL 09/26/2015 Free T4 Grl960 FREE T4 0.80 ng/dL 09/26/2015 Comp Metabolic Snp366 NA 133 mEq/L 08/06/2015 Comp Metabolic Gke001 K 4.6 mEq/L 08/06/2015 Comp Metabolic Fhx419 CL 102 mEq/L 08/06/2015 Comp Metabolic Ewq492 CO2 24.0 mEq/L 08/06/2015 Comp Metabolic Uif637 ANION GAP 12 08/06/2015 Comp Metabolic Ttj839 GLUCOSE 105 mg/dL 08/06/2015 Comp Metabolic Iee252 Creat 1.0 mg/dL 08/06/2015 Comp Metabolic Hfk802 eGFR 60 ml/min/1.73m2 08/06/2015 Comp Metabolic Beo386 BUN 28 mg/dL 08/06/2015 Comp Metabolic Pbf716 B/C Ratio 28.6 Ratio 08/06/2015 Comp Metabolic Cbx508 CALCIUM 9.2 mg/dL 08/06/2015 Comp Metabolic Duu496 ALK PHOS 42 U/L 08/06/2015 Comp Metabolic Azt371 AST(SGOT) 20 U/L 08/06/2015 Comp Metabolic Mdz975 ALT(SGPT) 16 U/L 08/06/2015 Comp Metabolic Hsy749 BILI T 0.3 mg/dL 08/06/2015 Comp Metabolic Fyh165 ALBUMIN 4.3 g/dL 08/06/2015 Comp Metabolic Coc692 TPRO 6.9 g/dL 08/06/2015 Comp Metabolic Kio264 GLOB 2.7 g/dL 08/06/2015 Comp Metabolic Vbe372 A/G Ratio 1.6 Ratio 08/06/2015 Comp Metabolic Gph944 Osmo 272 mOsmo 08/06/2015 C-Reactive Protein Qnt Crqnt CRP 0.00 mg/dl 08/06/2015 Vitamin D 25 Oh Ubs3593 VITAMIN D, 25 HYDROXY 36.25 ng/mL Cbc With Differential Ord2 WBC 6.41 K/ul 08/06/2015 Cbc With Differential Ord2 RBC 3.98 M/ul 08/06/2015 Cbc With Differential Ord2 HGB 12.6 g/dl 08/06/2015 Cbc With Differential Ord2 Neut% 69.9 % 08/06/2015 Cbc With Differential Ord2 HCT 37.5 % 08/06/2015 Cbc With Differential Ord2 Lymph% 20.4 % 08/06/2015 Cbc With Differential Ord2 MCV 94.2 fl 08/06/2015 Cbc With Differential Ord2 MCH 31.7 pg 08/06/2015 Cbc With Differential Ord2 Door% 8.9 % 08/06/2015 Cbc With Differential Ord2 MCHC 33.6 pg 08/06/2015 Cbc With Differential Ord2 Eos% 0.6 % 08/06/2015 Cbc With Differential Ord2 Baso% 0.2 % 08/06/2015 Cbc With Differential Ord2 PLT 216 K/ul 08/06/2015 Cbc With Differential Ord2 RDW 13.6 % 08/06/2015 Cbc With Differential Ord2 Neut ABS# 4.48 K/ul 08/06/2015 Cbc With Differential Ord2 Lymph ABS# 1.31 K/ul 08/06/2015 Cbc With Differential Ord2 Door ABS# 0.6 K/ul 08/06/2015 Cbc With Differential Ord2 Eos ABS# 0.0 K/ul 08/06/2015 Cbc With Differential Ord2 Baso ABS# 0.0 K/ul 08/06/2015 Cbc With Differential Ord2 New Analyzer Notice Please note new ref ranges starting 04-25-2015 due to implemntation of new five part differential hematolgy analyzer. 08/06/2015 Sed Rate Ord21 ESR 17 mm/hr 08/06/2015 %Hba1C Ymp923 % HbA1c 95925-6 5.7 % 04/04/2015 %Hba1C Qhs646 Gluc Ave 117 mg/dL 04/04/2015 C-Reactive Protein Qnt Crqnt CRP 0.00 mg/dl 04/04/2015 Sed Rate Ord21 ESR 16 mm/hr 04/04/2015 Lipid Ord30 CHOL 214 mg/dL 04/04/2015 Lipid Ord30 HDL 61.0 mg/dl 04/04/2015 Lipid Ord30 TRIG 155 mg/dL 04/04/2015 Lipid Ord30 LDL 122 mg/dL 04/04/2015 Lipid Ord30 C/HDL 3.5 Ratio 04/04/2015 Bili D Ord93 BILI D 0.1 mg/dL 04/04/2015 Bili D Ord93 BILI I 0.4 mg/dL 04/04/2015 Vitamin D 25 Oh Niu0488 VITAMIN D, 25 HYDROXY 47.62 ng/mL Cbc With Differential Ord2 WBC 5.1 K/uL [...] Ord2 RDW 13.0 % 04/04/2015 Comp Metabolic Vyc471 NA 132 mEq/L 04/04/2015 Comp Metabolic Cik138 K 4.6 mEq/L 04/04/2015 Comp Metabolic Bxc161 CL 100 mEq/L 04/04/2015 Comp Metabolic Kqr316 CO2 22.0 mEq/L 04/04/2015 Comp Metabolic Wqh042 ANION GAP 15 04/04/2015 Comp Metabolic Bfu626 GLUCOSE 118 mg/dL 04/04/2015 Comp Metabolic Yat612 Creat 1.0 mg/dL 04/04/2015 Comp Metabolic Hvl644 eGFR 60 ml/min/1.73m2 04/04/2015 Comp Metabolic Hga378 BUN 18 mg/dL 04/04/2015 Comp Metabolic Bxs543 B/C Ratio 18.4 Ratio 04/04/2015 Comp Metabolic Exp626 CALCIUM 9.6 mg/dL 04/04/2015 Comp Metabolic Tro530 ALK PHOS 63 U/L 04/04/2015 Comp Metabolic Ugr264 AST(SGOT) 17 U/L 04/04/2015 Comp Metabolic Jsa168 ALT(SGPT) 13 U/L 04/04/2015 Comp Metabolic Jox015 BILI T 0.5 mg/dL 04/04/2015 Comp Metabolic Vcq018 ALBUMIN 4.6 g/dL 04/04/2015 Comp Metabolic Zrg733 TPRO 7.4 g/dL 04/04/2015 Comp Metabolic Jlv007 GLOB 2.8 g/dL 04/04/2015 Comp Metabolic Tui468 A/G Ratio 1.6 Ratio 04/04/2015 Comp Metabolic Bdj586 Osmo 268 mOsmo 04/04/2015 %Hba1C Jfa645 % HbA1c 57836-9 5.9 % 11/28/2014 %Hba1C Koi526 Gluc Ave 123 mg/dL 11/28/2014 C-Reactive Protein Qnt Crqnt CRP 0.00 mg/dl 11/27/2014 Lipid Ord30 CHOL 196 mg/dL 11/27/2014 Lipid Ord30 HDL 60.0 mg/dl 11/27/2014 Lipid Ord30 TRIG 158 mg/dL 11/27/2014 Lipid Ord30 LDL 104 mg/dL 11/27/2014 Lipid Ord30 C/HDL 3.3 Ratio 11/27/2014 Hepatic Mzv572 ALBUMIN 4.4 g/dL 11/27/2014 Hepatic Qjl242 TPRO 7.0 g/dL 11/27/2014 Hepatic Qos689 GLOB 2.6 g/dL 11/27/2014 Hepatic Xgf653 A/G Ratio 1.7 Ratio 11/27/2014 Hepatic Fdh564 ALK PHOS 63 U/L 11/27/2014 Hepatic Gbc854 ALT(SGPT) 14 U/L 11/27/2014 Hepatic Ika705 AST(SGOT) 19 U/L 11/27/2014 Hepatic Jsq397 BILI T 0.4 mg/dL 11/27/2014 Hepatic Hsj092 BILI D 0.1 mg/dL 11/27/2014 Hepatic Vrs214 BILI I 0.3 mg/dL 11/27/2014 Sed Rate [...] Exam - General 1995 Ears/Nose/Throat lips/teeth/gingiva Overall: benign lips 05/20/2016 None [...] PNEUMOCOCCAL VACC [address]: 92829759 CPT-4: 86901 02/20/2016 ADMIN PNEUMOCOCCAL VACCINE SNOMED CT: 00163024 CPT-4: G0009 02/20/2016 ADMIN INFLUENZA VIRUS VAC CPT-4: G0008 01/23/2016 FLU VACC 4 KATIE 3 YRS PLUS IM SNOMED CT: 00054596 CPT-4: 41980 01/23/2016 PPPS, SUBSEQ VISIT CPT -4: G0439 07/19/2015 Vital Signs Date Vital 02/17/2017 Blood Pressure 1: 144/86 Code : 8480-6 BMI: 28.7 Code : 03137-7 Heart Rate 1 : 64 bpm Height: 5'1" SpO2: 96% Weight: 152 lbs 01/02/2017 Blood Pressure 1: 132/78 Code : 8480-6 BMI: 28.3 Code : 86099-7 Heart Rate 1 : 71 bpm Height: 5'1" SpO2: 97% Weight: 150 lbs 12/05/2016 Blood Pressure 1: 140/76 Code : 8480-6 BMI: 29.5 Code : 79073-7 Heart Rate 1 : 66 bpm Height: 5'1" SpO2: 98% Weight: 156 lbs 08/21/2016 Blood Pressure 1: 142/78 Code : 8480-6 BMI: 29.9 Code : 34340-1 Heart Rate 1 : 62 bpm Height: 5'1" SpO2: 98% Waist Measure (cm): 79 cm Weight: 158 lbs 08/19/2016 Blood Pressure 1: 14278 Code : 8480-6 BMI: 29.9 Code : 96638-2 Heart Rate 1 : 62 bpm Height: 5'1" SpO2: 98% Weight: 158 lbs 05/20/2016 Blood Pressure 1: 152/76 Code : 8480-6 Blood Pressure 1: 144/80 Code: 8480-6 BMI: 29.3 Code: 05918-6 Heart Rate 1: 60 bpm Height: 5'1" SpO2: 95% Weight: 155 lbs 01/23/2016 Blood Pressure 1: 138/78 Code : 8480-6 BMI: 29.7 Code : 68418-4 Heart Rate 1 : 64 bpm Height: 5'1" SpO2: 98% Weight: 157 lbs 09/26/2015 Blood Pressure 1: 136/76 Code : 8480-6 BMI: 28.3 Code : 40323-3 Heart Rate 1 : 70 bpm Height: 5'1" SpO2: 98% Weight: 150 lbs 08/23/2015 Blood Pressure 1: 126/78 Code : 8480-6 BMI: 27.8 Code : 48333-5 Heart Rate 1 : 68 bpm Height: 5'1" SpO2: 97% Weight: 147 lbs 07/19/2015 Blood Pressure 1: 146/70 Code : 8480-6 BMI: 26.8 Code : 85566-7 Heart Rate 1 : 58 bpm Height: 5'1" SpO2: 96% Waist Measure (cm): 84 cm Weight: 142 lbs 04/17/2015 Blood Pressure 1: 132/62 Code : 8480-6 BMI: 25.3 Code : 78039-8 Heart Rate 1 : 98 bpm Height: 5'1" SpO2: 97% Weight: 134 lbs 03/15/2015 Blood Pressure 1: 158/72 Code : 8480-6 Blood Pressure 1: 160/70 Code: 8480-6 BMI: 25.5 Code: 85334-4 Heart Rate 1: 74 bpm Heart Rate 1: 72 bpm Height: 5'1" Height: SpO2: 98% Weight: 135 lbs Weight: 02/06/2015 Blood Pressure 1: 142/82 Code : 8480-6 BMI: 25.5 Code : 30619-4 Heart Rate 1 : 82 bpm Height: 5'1" SpO2: 96% Weight: 135 lbs 12/13/2014 Blood Pressure 1: 136/64 Code : 8480-6 BMI: 24.9 Code : 67482-0 Heart Rate 1 : 86 bpm Height: 5'1" SpO2: 95% Weight: 132 lbs 10/11/2014 Blood Pressure 1: 140/80 Code : 8480-6 BMI: 25.1 Code : 35147-6 Heart Rate 1 : 72 bpm Height: [...] data Encounters Encounter Performer Location Codes Date ([id number]) 82476 EST. PATIENT, LEVEL IV Diagnosis: Essential (primary) hypertension[ICD10: I10] Diagnosis: Muscle weakness (generalized)[ICD10: M62.81] Diagnosis: Mixed hyperlipidemia[ICD10: E78.2] Maria Luisa Echeverria MD, [facility] CPT-4: 75310 02/17/2017 [id number]) [id number] EST. PATIENT, LEVEL III Diagnosis: Essential (primary) hypertension[ICD10: I10] Diagnosis: Muscle weakness (generalized)[ICD10: M62.81] Diamond Echeverria MD, [facility] CPT-4: 52279 01/02/2017 [id number]) 30719 EST. PATIENT, LEVEL IV Diagnosis: Muscle weakness (generalized)[ICD10: M62.81] Diagnosis: Cerebral infarction, unspecified[ICD10: I63.9] Diagnosis: Essential (primary) hypertension[ICD10: I10] Diagnosis: Gastro-esophageal reflux disease without esophagitis[ICD10: K21.9] Diagnosis: Allergic rhinitis due to pollen[ICD10: J30.1] Diamond Echeverria MD, [facility] CPT-4: 39246 12/05/2016 [id number]) [id number] EST. PATIENT, LEVEL IV Diagnosis: Essential (primary) hypertension[ICD10: I10] Diagnosis: Type 2 diabetes mellitus without complications[ICD10: E11.9] Maria Luisa Echeverria MD [facility] CPT-4: 25865 08/19/2016 88795 EST. PATIENT, LEVEL IV Diagnosis: Essential (primary) hypertension[ICD10: I10] Diagnosis: Type 2 diabetes mellitus without complications[ICD10: E11.9] Diagnosis: Mixed hyperlipidemia[ICD10: E78.2] Ashley Echeverria MD [facility] CPT-4: 49726 05/20/2016 ([id number]) 85899 EST. PATIENT, LEVEL IV Diagnosis: Type 2 diabetes mellitus without complications[ICD10: E11.9] Diagnosis: Family history of other endocrine, nutritional and metabolic diseases [ICD10: Z83.49] Diagnosis: Other fatigue[ICD10: R53.83] Diagnosis: Abnormal weight gain[ICD10: R63.5] Diagnosis: Actinic keratosis[ICD10: L57.0] Maria Luisa Echeverria MD [facility] CPT- 4: 54833 01/23/2016 ([id number]) 59832 EST. PATIENT, LEVEL IV Diagnosis: Family history of other endocrine, nutritional and metabolic diseases [ICD10: Z83.49] Diagnosis: Other fatigue[ICD10: R53.83] Diagnosis: Abnormal weight gain[ICD10: R63.5] Diagnosis: Actinic keratosis[ICD10: L57.0] Diagnosis: Type 2 diabetes mellitus without complications[ICD10: E11.9] Maria Luisa Echeverria MD [facility] CPT-4: 17150 09/26/2015 ([id number]) 13485 EST. PATIENT, LEVEL IV Diagnosis: Essential (primary) hypertension[ICD10: I10] Diagnosis: Type 2 diabetes mellitus without complications[ICD10: E11.9] Diagnosis: Other depressive episodes[ICD10: F32.8] Diagnosis: Vitamin D deficiency, unspecified[ICD10: E55.9] Maria Luisa Echeverria MD [facility] CPT-4: 53036 08/23/2015 ([id number]) 00640 EST. PATIENT, LEVEL IV Diagnosis: Essential (primary) hypertension[ICD10: I10] Diagnosis: Benign paroxysmal vertigo, unspecified ear[ICD10: H81.10] Diagnosis: Type 2 diabetes mellitus without complications[ICD10: E11.9] Maria Luisa Echeverria MD, [facility] CPT-4: 53431 04/17/2015 [id number] 53715 EST. PATIENT, LEVEL III Diagnosis: Essential (primary) hypertension[ICD10: I10] Diagnosis: Benign paroxysmal vertigo, unspecified ear[ICD10: H81.10] Diamond Echeverria MD , [facility] CPT-4: 58950 03/15/2015 ([id number] 33836 EST. PATIENT, LEVEL III Diagnosis: Essential (primary) hypertension[ICD10: I10] Diagnosis: Edema, unspecified[ICD10: R60.9] Diamond Echeverria MD, [facility] CPT-4: 10662 02/06/2015 ([id number]) 06368 EST. PATIENT, LEVEL IV Diagnosis: ESSENTIAL HYPERTENSION[ICD9: 401.9] Diagnosis: HYPERLIPIDEMIA[ICD9: 272.4] Diagnosis: DEPRESSIVE DISORDER NEC[ICD9: 311] Diagnosis: ESOPHAGEAL REFLUX[ICD9: 530.81] Diagnosis: RESTLESS LEGS SYNDROME[ICD9: 333.94] Maria Luisa Echeverria MD, [facility] CPT-4: 91133 12/13/2014 ([id number]) OFFICE VISIT, NEW - LEVEL 4 Diagnosis: ESSENTIAL HYPERTENSION[ICD9: 401.9] Diagnosis: HYPERLIPIDEMIA[ICD9: 272.4] Diagnosis: DEPRESSIVE DISORDER NEC[ICD9: 311] Diagnosis: ESOPHAGEAL REFLUX[ICD9: 530.81] Diagnosis: RESTLESS LEGS SYNDROME[ICD9: 333.94] Maria Luisa Echeverrai MD, [facility] CPT-4: 69018 10/11/2014 Plan of Care Planned Activity Notes Codes Status Date Visit Plan: Hypertension - well controlled - continue with current medications, continue with no added salt diet. Pt has been encouraged to exercise daily. The pt has been advised to call the office if there are any acute concerns about change in blood pressure readings at home. Stroke - question of afib - recommendation of Neurologist is for a referral to Dr. Andujar - possibly needs a lynxs device. Hyperlipidemia - pt has been counseled about appropriate diet, exercise, and need for low fat food choices. I have discussed the need for the patient to take medications as prescribed. If the patient has negative side effects from the medication, they are to CALL the office and not abruptly discontinue the medication without discussion with a practitioner in the office. We will check labs in 3-6 months for follow up on the patient's chronic medical problem and to assure normal liver response to medications. 02/17/2017 Appointment: Maria Luisa Echeverria WPtel: [facility] (15 min) Moderate 02/17/2017 Patient Education: Patient Medication Summary Completed 02/17/2017 Care Plan: Referral Order SNOMED-CT : [id number] Pending 02/17/2017 Visit Plan: Hypertension - well controlled - continue with current medications, continue with no added salt diet. Pt has been encouraged to exercise daily. The pt has been advised to call the office if there are any acute concerns about change in blood pressure readings at home. Weakness-recent stroke-strength improving-no changes 01/02/2017 Appointment: Diamond Sawyer WPtel: [phone] (30 min) Complex 01/02/2017 Patient Education: Patient Medication Summary Completed 01/02/2017 Visit Plan: Hypertension - well controlled - continue with current medications, continue with no added salt diet. Pt has been encouraged to exercise daily. The pt has been advised to call the office if there are any acute concerns about change in blood pressure readings at home. Generalized weakness-gait fgtjdghoqwd-VML-lvyhkqja PT-patient to use 4 wheeled walker GERD- dysphagia-refer for speech eval-start pepcid twice daily Allergies-chronic- restart allergy pill as directed 12/05/2016 Appointment: Diamond Sawyer WPtel: [phone] [place] (15 min) Moderate 12/05/2016 Patient Education: Patient Medication Summary Completed 12/05/2016 Patient Education: Hypertension Completed 12/05/2016 Visit Plan: Medicare Exam - today we discussed the patients past history, immunizations, preventative exams/evaluations - colonoscopy, fecal occult blood testing, routine labs for renal function, glucose, cholesterol, osteoporosis evaluations, cardiovascular testing and cancer screenings. We have also discussed mental health and the signs/symptoms of depression. The patient was advised of home safety evaluations and the need to make sure that as the aging process continues, we need to be aware of different ways to make the home a safer place to reside. The patient has also been counseled that exercise is necessary - and of utmost importance as we age to help decrease fall risk and to maintain independence in the home. Today we discussed the need for the patient to create paperwork for Advanced directives as well as for the patient to provide this office with a copy of her DOPA paperwork for health care surrogate. 08/21/2016 Appointment: Ashley Wooten WPtel: [phone] [facility] [facility] - Annual Wellness Visit 08/21/2016 Patient Education: Patient Medication Summary Completed 08/21/2016 Visit Plan: Hypertension - well controlled - continue with current medications, continue with no added salt diet. Pt has been encouraged to exercise daily. The pt has been advised to call the office if there are any acute concerns about change in blood pressure readings at home. Diabetes Mellitus - controlled - per recent FSBS reports. I have recommended for the patient to have follow up labs prior to the next office visit. The patient has been instructed to continue with current medications as previously directed, continue with regular FSBS monitoring to assure continued control of diabetes. Pt to call for any acute concerns, complaints, or if the blood glucose readings are starting to become less controlled. 08/19/2016 Appointment: Maria Luisa Echeverria WPtel: [phone] [facility] (15 min) Moderate 08/19/2016 Patient Education: Patient Medication Summary Completed 08/19/2016 Visit Plan: Hypertension - well controlled - continue with current medications, continue with no added salt diet. Pt has been encouraged to exercise daily. The pt has been advised to call the office if there are any acute concerns about change in blood pressure readings at home. Diabetes Mellitus - controlled - per recent FSBS reports. I have recommended for the patient to have follow up labs prior to the next office visit. The patient has been instructed to continue with current medications as previously directed, continue with regular FSBS monitoring to assure continued control of diabetes. Pt to call for any acute concerns, complaints, or if the blood glucose readings are starting to become less controlled. Hyperlipidemia - pt has been counseled about appropriate diet, exercise, and need for low fat food choices. I have discussed the need for the patient to take medications as prescribed. If the patient has negative side effects from the medication, they are to CALL the office and not abruptly discontinue the medication without discussion with a practitioner in the office. We will check labs in 3-6 months for follow up on the patient's chronic medical problem and to assure normal liver response to medications. 05/20/2016 Appointment: Ashley Wooten WPtel: [phone] [facility] (15 min) Moderate 05/20/2016 Patient Education: Patient Medication Summary Completed 05/20/2016 Care Plan: Free T4 Pending 03/07/2016 Care Plan: Tsh Pending 03/07/2016 Appointment: Injection 02/20/2016 Patient Education: Patient Medication Summary Completed 02/20/2016 Visit Plan: Diabetes Mellitus - controlled - per recent FSBS reports. I have recommended for the patient to have follow up labs prior to the next office visit. The patient has been instructed to continue with current medications as previously directed, continue with regular FSBS monitoring to assure continued control of diabetes. Pt to call for any acute concerns, complaints, or if the blood glucose readings are starting to become less controlled. Hypertension - well controlled - continue with current medications, continue with no added salt diet. Pt has been encouraged to exercise daily. The pt has been advised to call the office if there are any acute concerns about change in blood pressure readings at home. FLU SHOT TODAY 01/23/2016 Appointment: Maria Luisa Echeverria [facility]el[phone] [place] (15 min) Moderate 01/23/2016 Patient Education: Patient Medication Summary Completed 01/23/2016 Visit Plan: Diabetes Mellitus - controlled - per recent FSBS reports. I have recommended for the patient to have follow up labs prior to the next office visit. The patient has been instructed to continue with current medications as previously directed, continue with regular FSBS monitoring to assure continued control of diabetes. Pt to call for any acute concerns, complaints, or if the blood glucose readings are starting to become less controlled. Hypertension - well controlled - continue with current medications, continue with no added salt diet. Pt has been encouraged to exercise daily. The pt has been advised to call the office if there are any acute concerns about change in blood pressure readings at home. 09/26/2015 Appointment: Maria Luisa Echeverria WPtel: [facility]5 [facility] (15 min) Moderate 09/26/2015 Patient Education: Patient Medication Summary Completed 09/26/2015 Visit Plan: Hypertension - well controlled - continue with current medications, continue with no added salt diet. Pt has been encouraged to exercise daily. The pt has been advised to call the office if there are any acute concerns about change in blood pressure readings at home. Diabetes Mellitus - controlled - per recent FSBS reports. I have recommended for the patient to have follow up labs prior to the next office visit. The patient has been instructed to continue with current medications as previously directed, continue with regular FSBS monitoring to assure continued control of diabetes. Pt to call for any acute concerns, complaints, or if the blood glucose readings are starting to become less controlled. Depression - stable Vitamin D Deficiency - continue with supplementation as previously directed. 08/23/2015 Patient Education: Patient Medication Summary Completed 08/23/2015 Appointment: Maria Luisa Echeverria WPtel: [facility] (15 min) Moderate 08/22/2015 Appointment: Maria Luisa Echeverria WPtel: [facility] (15 min) Moderate 08/15/2015 Visit Plan: Medicare Exam - today we discussed the patients past history, immunizations, preventative exams/evaluations - colonoscopy, fecal occult blood testing, routine labs for renal function, glucose, cholesterol, osteoporosis evaluations, cardiovascular testing and cancer screenings. We have also discussed mental health and the signs/symptoms of depression. The patient was advised of home safety evaluations and the need to make sure that as the aging process continues, we need to be aware of different ways to make the home a safer place to reside. The patient has also been counseled that exercise is necessary - and of utmost importance as we age to help decrease fall risk and to maintain independece in the home. Today we discussed the need for the patient to create paperwork for Advanced directives as well as for the patient to provide this office with a copy of her DOPA paperwork for health care surrogate. 07/19/2015 Appointment: [facility] - Annual Wellness Visit 07/19/2015 Patient Education: Patient Medication Summary Completed 07/19/2015 Visit Plan: Hypertension - uncontrolled - the patient's medications have been modified as documented in the visit note. The patient has been counseled to cut back on salt in diet for a no added salt diet, low fat diet, start an exercise program with low weight bearing exercises and higher aerobic activity for heart health. The patient is to check blood pressure readings as an outpatient and either fax, call, or email the readings to the office next week for practitioner to review. The pt is to call for acute concerns. BPPV - Benign Paroxysmal Positional Vertigo - discussed diagnosis with the patient, offered the pt the appropriate additional information in hand- out. Pt instructed in home exercises to help alleviate and prevent future recurrent episodes of vertigo. Pt informed that if symptoms worsen, call the office for further instructions/medication interventions. Diet controlled DM - no current medications - monitor symtoms, pt can decrease FSBS checks to three times a week. 04/17/2015 Appointment: Maria Luisa Echeverria WPtel: [facility] (15 min) Moderate 04/17/2015 Patient Education: Patient Medication Summary Completed 04/17/2015 Patient Education: Hypertension Completed 04/17/2015 Visit Plan: Hypertension - well controlled - continue with current medications, continue with no added salt diet. Pt has been encouraged to exercise daily. The pt has been advised to call the office if there are any acute concerns about change in blood pressure readings at home. BPPV - Benign Paroxysmal Positional Vertigo - discussed diagnosis with the patient, offered the pt the appropriate additional information in hand-out. Pt instructed in home exercises to help alleviate and prevent future recurrent episodes of vertigo. Pt informed that if symptoms worsen, call the office for further instructions/medication interventions. 03/15/2015 Appointment: (15 min) Moderate 03/15/2015 Patient Education: Patient Medication Summary Completed 03/15/2015 Patient Education: Hypertension Completed 03/15/2015 Visit Plan: Hypertension - uncontrolled - the patient's medications have been modified as documented in the visit note. The patient has been counseled to cut back on salt in diet for a no added salt diet, low fat diet, start an exercise program with low weight bearing exercises and higher aerobic activity for heart health. The patient is to check blood pressure readings as an outpatient and either fax, call, or email the readings to the office next week for practitioner to review. The pt is to call for acute concerns. Edema - pt has been advised to elevate legs to prevent dependent edema , compression has been recommended to help to naturally decrease peripheral edema. Diuretic use has been discussed and pt has been instructed in appropriate use of such medication as necessary to further attempt to reduce peripheral edema. 02/06/2015 Appointment: (15 min) Moderate 02/06/2015 Patient Education: Patient Medication Summary Completed 02/06/2015 Patient Education: Hypertension Completed 02/06/2015 Visit Plan: Diabetes Mellitus - controlled - per recent FSBS reports. I have recommended for the patient to have follow up labs prior to the next office visit. The patient has been instructed to continue with current medications as previously directed, continue with regular FSBS monitoring to assure continued control of diabetes. Pt to call for any acute concerns, complaints, or if the blood glucose readings are starting to become less controlled. Hypertension - well controlled - continue with current medications, continue with no added salt diet. Pt has been encouraged to exercise daily. The pt has been advised to call the office if there are any acute concerns about change in blood pressure readings at home. Hyperlipidemia - pt has been counseled about appropriate diet, exercise, and need for low fat food choices. I have discussed the need for the patient to take medications as prescribed. If the patient has negative side effects from the medication, they are to CALL the office and not abruptly discontinue the medication without discussion with a practitioner in the office. We will check labs in 3-6 months for follow up on the patient's chronic medical problem and to assure normal liver response to medications. 12/13/2014 Appointment: Maria Luisa Echeverria WPtel: [phone] [id number] (15 min) Moderate 12/13/2014 Patient Education: Patient Medication Summary Completed 12/13/2014 Visit Plan: Hypertension - well controlled - continue with current medications, continue with no added salt diet. Pt has been encouraged to exercise daily. The pt has been advised to call the office if there are any acute concerns about change in blood pressure readings at home. Hyperlipidemia - pt has been counseled about appropriate diet, exercise, and need for low fat food choices. I have discussed the need for the patient to take medications as prescribed. If the patient has negative side effects from the medication, they are to CALL the office and not abruptly discontinue the medication without discussion with a practitioner in the office. We will check labs in 3-6 months for follow up on the patient's chronic medical problem and to assure normal liver response to medications. Restless Leg Syndrome - uncontrolled symptoms - I have recommended pt to start on a low dose of iron two to three times a week - to take with orange juice. Pt is to alert me if the symptoms do not improve and we will start on a medication such as mirapex. Esophageal Reflux - the patient has been counseled against excessive intake of caffeine, spicy foods, peppermint, and cinnamon - all of which can exacerbate esophageal reflux. The patient is to take medications as prescribed and call the office if the symptoms are not improving. Chronic Depression and anxiety - the pt has symptoms of chronic anxiety and depression that have been fairly well controlled since the last office visit. The pt has expected periods of exacerbation with abatement of the symptoms with change in situational exposure. No change in current medications. 10/11/2014 Appointment: Maria Luisa Echeverria WPtel: [id number] [place] ([place] New Patient 10/11/2014 Appointment: Maria Luisa Echeverria WPtel: [id number] (15 min) Moderate 10/11/2014 Patient Education: Patient Medication Summary Completed 10/11/2014 Patient Education: Hypertension Completed 10/11/2014 Referral: Lizz Andujar Referral Completed Instructions Comment DECREASE SODIUM/SALT INTAKE COMPRESSION STOCKINGS INCREASE WATER INTAKE DEREASE AMLODIPINE TO 1/2 TAB DAILY COMPRESSION STOCKINGS -ON IN THE MORNING AND OFF AT BEDTIME . Hypertension - uncontrolled - the patient's medications have been modified as documented in the visit note. The patient has been counseled to cut back on salt in diet for a no added salt diet, low fat diet, start an exercise program with low weight bearing exercises and higher aerobic activity for heart health. The patient is to check blood pressure readings as an outpatient and either fax , call, or email the readings to the office next week for practitioner to review. The pt is to call for acute concerns. Edema - pt has been advised to elevate legs to prevent dependent edema, compression has been recommended to help to naturally decrease peripheral edema. Diuretic use has been discussed and pt has been instructed in appropriate use of such medication as necessary to further attempt to reduce peripheral edema. . Diabetes Mellitus - controlled - per recent FSBS reports. I have recommended for the patient to have follow up labs prior to the next office visit. The patient has been instructed to continue with current medications as previously directed, continue with regular FSBS monitoring to assure continued control of diabetes. Pt to call for any acute concerns, complaints, or if the blood glucose readings are starting to become less controlled. Hypertension - well controlled - continue with current medications, continue with no added salt diet. Pt has been encouraged to exercise daily. The pt has been advised to call the office if there are any acute concerns about change in blood pressure readings at home. . Hypertension - well controlled - continue with current medications, continue with no added salt diet. Pt has been encouraged to exercise daily. The pt has been advised to call the office if there are any acute concerns about change in blood pressure readings at home. Diabetes Mellitus - controlled - per recent FSBS reports. I have recommended for the patient to have follow up labs prior to the next office visit. The patient has been instructed to continue with current medications as previously directed, continue with regular FSBS monitoring to assure continued control of diabetes. Pt to call for any acute concerns, complaints, or if the blood glucose readings are starting to become less controlled. START SPIRONOLACTONE 25MG DAILY CONTINUE AMLODIPINE 5MG DAILY MONITOR BLOOD PRESSURE AND PULSE AT HOME AND BRING IN READINGS FOR REVIEW . Hypertension - well controlled - continue with current medications, continue with no added salt diet. Pt has been encouraged to exercise daily. The pt has been advised to call the office if there are any acute concerns about change in blood pressure readings at home. BPPV - Benign Paroxysmal Positional Vertigo - discussed diagnosis with the patient, offered the pt the appropriate additional information in hand-out. Pt instructed in home exercises to help alleviate and prevent future recurrent episodes of vertigo. Pt informed that if symptoms worsen, call the office for further instructions/medication interventions. . Hypertension - well controlled - continue with current medications, continue with no added salt diet. Pt has been encouraged to exercise daily. The pt has been advised to call the office if there are any acute concerns about change in blood pressure readings at home. Weakness-recent stroke-strength improving-no changes . Medicare Exam - today we discussed the patients past history, immunizations, preventative exams/evaluations - colonoscopy, fecal occult blood testing, routine labs for renal function, glucose, cholesterol, osteoporosis evaluations, cardiovascular testing and cancer screenings. We have also discussed mental health and the signs/symptoms of depression. The patient was advised of home safety evaluations and the need to make sure that as the aging process continues, we need to be aware of different ways to make the home a safer place to reside. The patient has also been counseled that exercise is necessary - and of utmost importance as we age to help decrease fall risk and to maintain independece in the home. Today we discussed the need for the patient to create paperwork for Advanced directives as well as for the patient to provide this office with a copy of her DOPA paperwork for health care surrogate. . Diabetes Mellitus - controlled - per recent FSBS reports. I have recommended for the patient to have follow up labs prior to the next office visit. The patient has been instructed to continue with current medications as previously directed, continue with regular FSBS monitoring to assure continued control of diabetes. Pt to call for any acute concerns, complaints, or if the blood glucose readings are starting to become less controlled. Hypertension - well controlled - continue with current medications, continue with no added salt diet. Pt has been encouraged to exercise daily. The pt has been advised to call the office if there are any acute concerns about change in blood pressure readings at home. Hyperlipidemia - pt has been counseled about appropriate diet, exercise, and need for low fat food choices. I have discussed the need for the patient to take medications as prescribed. If the patient has negative side effects from the medication, they are to CALL the office and not abruptly discontinue the medication without discussion with a practitioner in the office. We will check labs in 3-6 months for follow up on the patient's chronic medical problem and to assure normal liver response to medications. stop AMLODIPINE - due to swelling in ankles vitamin D 2000 units three times weekly while on the Vitamin D 50,000 unit and then once this is finished, take the 2000 units daily. . Hypertension - well controlled - continue with current medications, continue with no added salt diet. Pt has been encouraged to exercise daily. The pt has been advised to call the office if there are any acute concerns about change in blood pressure readings at home. Diabetes Mellitus - controlled - per recent FSBS reports. I have recommended for the patient to have follow up labs prior to the next office visit. The patient has been instructed to continue with current medications as previously directed, continue with regular FSBS monitoring to assure continued control of diabetes. Pt to call for any acute concerns, complaints, or if the blood glucose readings are starting to become less controlled. Depression - stable Vitamin D Deficiency - continue with supplementation as previously directed. PEPCID 20MG TWICE DAILY OK TO RESTART ALLERGY PILL SPEECH THERAPY TO EVALUATE AND TREAT . Hypertension - well controlled - continue with current medications, continue with no added salt diet. Pt has been encouraged to exercise daily. The pt has been advised to call the office if there are any acute concerns about change in blood pressure readings at home. Generalized weakness-gait lacgmxeccsq-WIL-cfaeaapt PT-patient to use 4 wheeled walker LMLM-wgrhqvfcn-hoqur for speech eval-start pepcid twice daily Bkcmqzepa-cvouzuw-onghiwd allergy pill as directed . Hypertension - well controlled - continue with current medications, continue with no added salt diet. Pt has been encouraged to exercise daily. The pt has been advised to call the office if there are any acute concerns about change in blood pressure readings at home. Stroke - question of afib - recommendation of Neurologist is for a referral to Dr. Andujar - possibly needs a lynxs device. Hyperlipidemia - pt has been counseled about appropriate diet, exercise, and need for low fat food choices. I have discussed the need for the patient to take medications as prescribed. If the patient has negative side effects from the medication, they are to CALL the office and not abruptly discontinue the medication without discussion with a practitioner in the office. We will check labs in 3-6 months for follow up on the patient's chronic medical problem and to assure normal liver response to medications. . Hypertension - well controlled - continue with current medications, continue with no added salt diet. Pt has been encouraged to exercise daily. The pt has been advised to call the office if there are any acute concerns about change in blood pressure readings at home. Diabetes Mellitus - controlled - per recent FSBS reports. I have recommended for the patient to have follow up labs prior to the next office visit. The patient has been instructed to continue with current medications as previously directed, continue with regular FSBS monitoring to assure continued control of diabetes. Pt to call for any acute concerns, complaints, or if the blood glucose readings are starting to become less controlled. Hyperlipidemia - pt has been counseled about appropriate diet, exercise, and need for low fat food choices. I have discussed the need for the patient to take medications as prescribed. If the patient has negative side effects from the medication, they are to CALL the office and not abruptly discontinue the medication without discussion with a practitioner in the office. We will check labs in 3-6 months for follow up on the patient's chronic medical problem and to assure normal liver response to medications. mirapex is for night-time dose at night to be used for restless legs at night . Hypertension - well controlled - continue with current medications, continue with no added salt diet. Pt has been encouraged to exercise daily. The pt has been advised to call the office if there are any acute concerns about change in blood pressure readings at home. Hyperlipidemia - pt has been counseled about appropriate diet, exercise, and need for low fat food choices. I have discussed the need for the patient to take medications as prescribed. If the patient has negative side effects from the medication, they are to CALL the office and not abruptly discontinue the medication without discussion with a practitioner in the office. We will check labs in 3-6 months for follow up on the patient's chronic medical problem and to assure normal liver response to medications. Restless Leg Syndrome - uncontrolled symptoms - I have recommended pt to start on a low dose of iron two to three times a week - to take with orange juice. Pt is to alert me if the symptoms do not improve and we will start on a medication such as mirapex. Esophageal Reflux - the patient has been counseled against excessive intake of caffeine, spicy foods, peppermint, and cinnamon - all of which can exacerbate esophageal reflux. The patient is to take medications as prescribed and call the office if the symptoms are not improving. Chronic Depression and anxiety - the pt has symptoms of chronic anxiety and depression that have been fairly well controlled since the last office visit. The pt has expected periods of exacerbation with abatement of the symptoms with change in situational exposure. No change in current medications. . Medicare Exam - today we discussed the patients past history, immunizations, preventative exams/evaluations - colonoscopy, fecal occult blood testing, routine labs for renal function, glucose, cholesterol, osteoporosis evaluations, cardiovascular testing and cancer screenings. We have also discussed mental health and the signs/symptoms of depression. The patient was advised of home safety evaluations and the need to make sure that as the aging process continues, we need to be aware of different ways to make the home a safer place to reside. The patient has also been counseled that exercise is necessary - and of utmost importance as we age to help decrease fall risk and to maintain independence in the home. Today we discussed the need for the patient to create paperwork for Advanced directives as well as for the patient to provide this office with a copy of her DOPA paperwork for health care surrogate. change the time of the losartan to evening dosing and keep the norvasc and spironolactone as currently taking. . Hypertension - uncontrolled - the patient's medications have been modified as documented in the visit note. The patient has been counseled to cut back on salt in diet for a no added salt diet, low fat diet, start an exercise program with low weight bearing exercises and higher aerobic activity for heart health. The patient is to check blood pressure readings as an outpatient and either fax , call, or email the readings to the office next week for practitioner to review. The pt is to call for acute concerns. BPPV - Benign Paroxysmal Positional Vertigo - discussed diagnosis with the patient, offered the pt the appropriate additional information in hand-out. Pt instructed in home exercises to help alleviate and prevent future recurrent episodes of vertigo. Pt informed that if symptoms worsen, call the office for further instructions/medication interventions. Diet controlled DM - no current medications - monitor symtoms, pt can decrease FSBS checks to three times a week. . Diabetes Mellitus - controlled - per recent FSBS reports. I have recommended for the patient to have follow up labs prior to the next office visit. The patient has been instructed to continue with current medications as previously directed, continue with regular FSBS monitoring to assure continued control of diabetes. Pt to call for any acute concerns, complaints, or if the blood glucose readings are starting to become less controlled. Hypertension - well controlled - continue with current medications, continue with no added salt diet. Pt has been encouraged to exercise daily. The pt has been advised to call the office if there are any acute concerns about change in blood pressure readings at home. FLU SHOT TODAY
--- OUTSIDE RECORDS SUMMARY | 2017-05-27 12:49 | XMS REPORT | Continuity of Care Document ---
Author Author [facility] Organization [facility] Address Unknown Phone Unavailable Allergies Active Description Code Type Severity Reaction Onset Reported/Identified Relationship to Patient Clinical Status Yes latex [id number] Drug Allergy Unknown N/A 05/16/2005 Yes Sulfa (Sulfonamide Antibiotics) [id number] Drug Allergy Unknown N/A 2005 Yes No Allergy Information Available [id number] Drug Allergy Unknown N/A 2016 Medications There is no data. Problems Date Dx Coded Attending Type Code Diagnosis Diagnosed By 02/11/2010 Ot 530.81 02/11/2010 Ot 535.40 02/28/2010 Ot 575.11 11/26/2010 Ot 558.9 11/26/2010 Ot 783.21 01/19/2011 Ot 787.91 DIARRHEA 03/02/2011 Ot 787.91 DIARRHEA 04/21/2014 MIRIAN ARNOLD MD Ot 401.9 04/21/2014 [...] 03/29/2015 Ot 789.00 03/29/2015 Ot V81.5 03/29/2015 CLAYTON KANG, MIRIAN Israel Ot 610.1 03/29/2015 CLAYTON KANG, MIRIAN Israel Ot V76.12 03/29/2015 CLAYTON KANG, MIRIAN Israel Ot 401.9 03/29/2015 CLAYTON KANG, MIRIAN Israel Ot 780.2 03/29/2015 CLAYTON KANG, MIRIAN Israel Ot 780.4 03/29/2015 CLAYTON KANG, MIRIAN Israel Ot V76.12 04/19/2015 LILIAN DOBSON Ot Z12.31 06/03/2016 Ot 787.91 DIARRHEA 06/03/2016 Ot V49.81 ASYMPT POSTMENOPAUSAL STATUS (AGE-RELATE 06/03/2016 Ot V76.12 OTH SCREEN MAMMO-MALIGN NEOPLASM OF MARK 06/03/2016 Ot 787.91 DIARRHEA 06/03/2016 Ot 786.50 CHEST PAIN NOS 06/03/2016 Ot V76.12 OTH SCREEN MAMMO-MALIGN NEOPLASM OF MARK 06/03/2016 Ot 789.00 ABDOMINAL PAIN, UNSPECIFIED SITE 06/03/2016 Ot V81.5 SCREEN FOR NEPHROPATHY 06/03/2016 MIRIAN ARNOLD MD Ot 610.1 DIFFUS CYSTIC MASTOPATHY 06/03/2016 MIRIAN ARNOLD MD Ot V76.12 OTH SCREEN MAMMO-MALIGN NEOPLASM OF MARK 06/03/2016 MIRIAN ARNOLD MD Ot 401.9 HYPERTENSION NOS 06/03/2016 MIRIAN ARNOLD MD Ot 780.2 SYNCOPE AND COLLAPSE 06/03/2016 MIRIAN ARNOLD MD Ot 780.4 DIZZINESS AND GIDDINESS 06/03/2016 MIRIAN ARNOLD MD Ot V76.12 OTH SCREEN MAMMO-MALIGN NEOPLASM OF MARK 06/03/2016 LILIAN DOBSON Ot Z12.31 ENCNTR SCREEN MAMMOGRAM FOR MALIGNANT NE 06/05/2016 TABITHA ALEJO APRN Ot Z12.31 ENCNTR SCREEN MAMMOGRAM FOR MALIGNANT NE 06/05/2016 TABITHA ALEJO APRN Ot Z12.31 ENCNTR SCREEN MAMMOGRAM FOR MALIGNANT NE 06/25/2016 TABITHA ALEJO APRN Ot Z12.31 ENCNTR SCREEN MAMMOGRAM FOR MALIGNANT NE 11/21/2016 CHRISTINE LUNDY MD Ot B95.1 STREPTOCOCCUS, GROUP B, CAUSING DISEASES 11/21/2016 CHRISTINE LUNDY MD Ot F41.9 ANXIETY DISORDER, UNSPECIFIED 11/21/2016 CHRISTINE LUNDY MD Ot G25.81 RESTLESS LEGS SYNDROME 11/21/2016 CHRISTINE LUNDY MD Ot H40.9 UNSPECIFIED GLAUCOMA 11/21/2016 CHRISTINE LUNDY MD Ot I10 ESSENTIAL (PRIMARY) HYPERTENSION 11/21/2016 CHRISTINE LUNDY MD Ot I63.511 CEREB INFRC D/T UNSP OCCLS OR STENOS OF 11/21/2016 CHRISTINE LUNDY MD Ot K21.9 GASTRO-ESOPHAGEAL REFLUX DISEASE WITHOUT 11/21/2016 CHRISTINE LUNDY MD Ot K76.9 LIVER DISEASE, UNSPECIFIED 11/21/2016 CHRISTINE LUNDY MD Ot M19.91 PRIMARY OSTEOARTHRITIS, UNSPECIFIED SITE 11/21/2016 CHRISTINE LUNDY MD Ot M62.81 MUSCLE WEAKNESS (GENERALIZED) 11/21/2016 CHRISTINE LUNDY MD Ot N39.0 URINARY TRACT INFECTION, SITE NOT SPECIF 11/21/2016 CHRISTINE LUNDY MD Ot R26.2 DIFFICULTY IN WALKING, NOT ELSEWHERE CLA 11/21/2016 CHRISTINE LUNDY MD Ot R26.81 UNSTEADINESS ON FEET 11/21/2016 CHRISTINE LUNDY MD Ot R26.89 OTHER ABNORMALITIES OF GAIT AND MOBILITY 11/21/2016 CHRISTINE LUNDY MD Ot R41.0 DISORIENTATION, UNSPECIFIED 11/21/2016 CHRISTINE LUNDY MD Ot R47.81 SLURRED SPEECH 11/21/2016 CHRISTINE LUNDY MD Ot R51 HEADACHE 11/21/2016 CHRISTINE LUNDY MD Ot R53.82 CHRONIC FATIGUE, UNSPECIFIED 11/21/2016 CHRISTINE LUNDY MD Ot Z86.73 PRSNL HX OF TIA (TIA), AND CEREB INFRC W 11/21/2016 CHRISTINE LUNDY MD Ot F41.9 ANXIETY DISORDER, UNSPECIFIED 11/21/2016 CHRISTINE LUNDY MD Ot G25.81 RESTLESS LEGS SYNDROME 11/21/2016 NIKKIE MD, CHRISTINE A Ot H40.9 UNSPECIFIED GLAUCOMA 11/21/2016 CHRISTINE LUNDY MD Ot I10 ESSENTIAL (PRIMARY) HYPERTENSION 11/21/2016 CHRISTINE LUNDY MD, Ot K21.9 GASTRO-ESOPHAGEAL REFLUX DISEASE WITHOUT 11/21/2016 CHRISITNE LUNDY MD Ot K76.9 LIVER DISEASE, UNSPECIFIED 11/21/2016 CHRISTINE LUNDY MD Ot M19.91 PRIMARY OSTEOARTHRITIS, UNSPECIFIED SITE 11/21/2016 CHRISTINE LUNDY MD Ot M62.81 MUSCLE WEAKNESS (GENERALIZED) 11/21/2016 CHRISTINE LUNDY MD Ot R26.2 DIFFICULTY IN WALKING, NOT ELSEWHERE CLA 11/21/2016 CHRISTINE LUNDY MD Ot R26.81 UNSTEADINESS ON FEET 11/21/2016 CHRISTINE LUNDY MD Ot R26.89 OTHER ABNORMALITIES OF GAIT AND MOBILITY 11/21/2016 CHRISTINE LUNDY MD Ot R41.0 DISORIENTATION, UNSPECIFIED 11/21/2016 CHRISTINE LUNDY MD Ot R47.81 SLURRED SPEECH 11/21/2016 CHRISTINE LUNDY MD Ot R51 HEADACHE 11/21/2016 CHRISTINE LUNDY MD Ot R53.82 CHRONIC FATIGUE, UNSPECIFIED 11/21/2016 CHRISTINE LUNDY MD Ot Z86.73 PRSNL HX OF TIA (TIA), AND CEREB INFRC W 11/21/2016 CHRISTINE LUNDY MD Ot F41.9 ANXIETY DISORDER, UNSPECIFIED 11/21/2016 CHRISTINE LUNDY MD, Ot G25.81 RESTLESS LEGS SYNDROME 11/21/2016 CHRISTINE LUNDY MD Ot H40.9 UNSPECIFIED GLAUCOMA 11/21/2016 CHRISTINE LUNDY MD Ot I10 ESSENTIAL (PRIMARY) HYPERTENSION 11/21/2016 CHRISTINE LUNDY MD, Ot K21.9 GASTRO-ESOPHAGEAL REFLUX DISEASE WITHOUT 11/21/2016 CHRISTINE LUNDY MD Ot K76.9 LIVER DISEASE, UNSPECIFIED 11/21/2016 CHRISTINE LUNDY MD Ot M19.91 PRIMARY OSTEOARTHRITIS, UNSPECIFIED SITE 11/21/2016 CHRISTINE LUNDY MD Ot M62.81 MUSCLE WEAKNESS (GENERALIZED) 11/21/2016 CHRISTINE LUNDY MD Ot R26.2 DIFFICULTY IN WALKING, NOT ELSEWHERE CLA 11/21/2016 NIKKIE MD, CHRISTINE A Ot R26.81 UNSTEADINESS ON FEET 11/21/2016 CHRISTINE LUNDY MD Ot R26.89 OTHER ABNORMALITIES OF GAIT AND MOBILITY 11/21/2016 CHRISTINE LUNDY MD Ot R41.0 DISORIENTATION, UNSPECIFIED 11/21/2016 CHRISTINE LUNDY MD Ot R47.81 SLURRED SPEECH 11/21/2016 CHRISTINE LUNDY MD Ot R51 HEADACHE 11/21/2016 CHRISTINE LUNDY MD Ot R53.82 CHRONIC FATIGUE, UNSPECIFIED 11/21/2016 CHRISTINE LUNDY MD Ot Z86.73 PRSNL HX OF TIA (TIA), AND CEREB INFRC W 12/04/2016 LILIAN DOBSON TREE GIRDLER Ot I63.9 CEREBRAL INFARCTION, UNSPECIFIED 12/08/2016 LILIAN DOBSON TREE GIRDLER Ot I63.9 CEREBRAL INFARCTION, UNSPECIFIED 01/10/2017 LILIAN DOBSON TREE GIRDLER Ot 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 01/10/2017 LILIAN DOBSONP Ot K21.9 GASTRO-ESOPHAGEAL REFLUX DISEASE WITHOUT 01/14/2017 LILIAN DOBSON TREE GIRDLER Ot I63.9 CEREBRAL INFARCTION, UNSPECIFIED 02/13/2017 LILIAN DOBSON TREE GIRDLER Ot I63.9 CEREBRAL INFARCTION, UNSPECIFIED 03/23/2017 IVAN BAH MD Ot E11.9 TYPE 2 DIABETES MELLITUS WITHOUT COMPLIC 03/23/2017 IVAN BAH MD Ot E78.2 MIXED HYPERLIPIDEMIA 03/23/2017 IVAN BAH MD Ot I10 ESSENTIAL (PRIMARY) HYPERTENSION 03/23/2017 IVAN BAH MD Ot I63.9 CEREBRAL INFARCTION, UNSPECIFIED 03/23/2017 IVAN BAH MD Ot I65.23 OCCLUSION AND STENOSIS OF BILATERAL CARRILLO 03/23/2017 IVAN BAH MD Ot M81.0 AGE-RELATED OSTEOPOROSIS W/O CURRENT PAT 03/23/2017 IVAN BAH MD, Ot Z82.49 FAMILY HX OF ISCHEM HEART DIS AND OTH DI 03/23/2017 IVAN BAH MD Ot Z88.2 ALLERGY STATUS TO SULFONAMIDES STATUS 04/09/2017 IVAN BAH MD Ot E11.9 TYPE 2 DIABETES MELLITUS WITHOUT COMPLIC 04/09/2017 IVAN BAH MD Ot E78.2 MIXED HYPERLIPIDEMIA 04/09/2017 IVAN BAH MD Ot I10 ESSENTIAL (PRIMARY) HYPERTENSION 04/09/2017 IVAN BAH MD Ot I63.9 CEREBRAL INFARCTION, UNSPECIFIED 04/09/2017 IVAN BAH MD Ot I65.23 OCCLUSION AND STENOSIS OF BILATERAL CARRILLO 04/09/2017 IVAN BAH MD Ot M81.0 AGE-RELATED OSTEOPOROSIS W/O CURRENT PAT 04/09/2017 IVAN BAH MD Ot Z82.49 FAMILY HX OF ISCHEM HEART DIS AND OTH DI 04/09/2017 IVAN BAH MD Ot Z88.2 ALLERGY STATUS TO SULFONAMIDES STATUS 04/17/2017 IVAN BAH MD Ot E11.9 TYPE 2 DIABETES MELLITUS WITHOUT COMPLIC 04/17/2017 IVAN BAH MD Ot E78.2 MIXED HYPERLIPIDEMIA 04/17/2017 IVAN BAH MD Ot I10 ESSENTIAL (PRIMARY) HYPERTENSION 04/17/2017 IVAN BAH MD Ot I63.9 CEREBRAL INFARCTION, UNSPECIFIED 04/17/2017 IVAN BAH MD Ot I65.23 OCCLUSION AND STENOSIS OF BILATERAL CARRILLO 04/17/2017 IVAN BAH MD Ot M81.0 AGE-RELATED OSTEOPOROSIS W/O CURRENT PAT 04/17/2017 IVAN BAH MD Ot Z82.49 FAMILY HX OF ISCHEM HEART DIS AND OTH DI 04/17/2017 IVAN BAH MD Ot Z88.2 ALLERGY STATUS TO SULFONAMIDES STATUS Procedures There is no data. Results Test Result Range Complete blood count (CBC) with automated white blood cell (WBC) differential - 11/19/16 11:25 Blood leukocytes automated count (number/volume) 7.1 10*3/uL 4.3-11.0 Blood erythrocytes automated count (number/volume) 4.30 10*6/uL 4.35-5.85 Venous blood hemoglobin measurement (mass/volume) 13.5 g/dL 11.5-16.0 Blood hematocrit (volume fraction) 40 % 35-52 Automated erythrocyte mean corpuscular volume 93 [foz_us] 80-99 Automated erythrocyte mean corpuscular hemoglobin (mass per erythrocyte) 31 pg 25-34 Automated erythrocyte mean corpuscular hemoglobin concentration measurement ( mass/volume) 34 g/dL 32-36 Automated erythrocyte distribution width ratio 12.8 % 10.0-14.5 Automated blood platelet count (count/volume) 195 10*3/uL 130-400 Automated blood platelet mean volume measurement 8.7 [foz_us] 7.4-10.4 Automated blood neutrophils/100 leukocytes 71 % 42-75 Automated blood lymphocytes/100 leukocytes 19 % 12-44 Blood monocytes/100 leukocytes 9 % 0-12 Automated blood eosinophils/100 leukocytes 1 % 0-10 Automated blood basophils/100 leukocytes 0 % 0-10 Blood neutrophils automated count (number/volume) 5.0 10*3 1.8-7.8 Blood lymphocytes automated count (number/volume) 1.3 10*3 1.0-4.0 Blood monocytes automated count (number/volume) 0.7 10*3 0.0-1.0 Automated eosinophil count 0.1 10*3/uL 0.0-0.3 Automated blood basophil count (count/volume) 0.0 10*3/uL 0.0-0.1 PT panel in platelet poor plasma by coagulation assay - 11/19/16 11:25 Prothrombin time (PT) in platelet poor plasma by coagulation assay 12.1 s 12.2-14.7 INR in platelet poor plasma or blood by coagulation assay 0.9 0.8-1.4 Activated partial thromboplastin time (aPTT) in platelet poor plasma bycoagulation assay - 11/19/16 11:25 Activated partial thromboplastin time (aPTT) in platelet poor plasma bycoagulation assay 24 s 24-35 Fibrin D-dimer FEU measurement in platelet poor plasma (mass/volume) - 11:25 Fibrin D-dimer FEU measurement in platelet poor plasma (mass/volume) 0.48 ug/mL 0.00-0.49 Comprehensive metabolic panel - 11/19/16 11:25 Serum or plasma sodium measurement (moles/volume) 134 mmol/L 135-145 Serum or plasma potassium measurement (moles/volume) 4.5 mmol/L 3.6-5.0 Serum or plasma chloride measurement (moles/volume) 106 mmol/L 98-107 Carbon dioxide 21 mmol/L 21-32 Serum or plasma anion gap determination (moles/volume) 7 mmol/L 5-14 Serum or plasma urea nitrogen measurement (mass/volume) 18 mg/dL 7-18 Serum or plasma creatinine measurement (mass/volume) 1.10 mg/dL 0.60-1.30 Serum or plasma urea nitrogen/creatinine mass ratio 16 NRG Serum or plasma creatinine measurement with calculation of estimated glomerular filtration rate 49 NRG Serum or plasma glucose measurement (mass/volume) 111 mg/dL 70-105 Serum or plasma calcium measurement (mass/volume) 9.5 mg/dL 8.5-10.1 Serum or plasma total bilirubin measurement (mass/volume) 0.5 mg/dL 0.1-1.0 Serum or plasma alkaline phosphatase measurement (enzymatic activity/volume) 54 U/L 40-136 Serum or plasma aspartate aminotransferase measurement (enzymatic activity/ volume) 33 U/L 5-34 Serum or plasma alanine aminotransferase measurement (enzymatic activity/volume ) 27 U/L 0-55 Serum or plasma protein measurement (mass/volume) 7.6 g/dL 6.4-8.2 Serum or plasma albumin measurement (mass/volume) 4.2 g/dL 3.2-4.5 Serum or plasma troponin i.cardiac measurement (mass/volume) - 11/19/16 11:25 Serum or plasma troponin i.cardiac measurement (mass/volume) < ng/ mL <0.30 Capillary blood glucose measurement by glucometer (mass/volume) - 11/19/16 11: 37 Capillary blood glucose measurement by glucometer (mass/volume) 110 mg/dL 70-110 Complete urinalysis with reflex to culture - 11/19/16 11:55 Urine color determination YELLOW NRG Urine clarity determination VERY CLOUDY NRG Urine pH measurement by test strip 5 5-9 Specific gravity of urine by test strip 1.020 1.016- 1.022 Urine protein assay by test strip, semi-quantitative 1+ NEGATIVE Urine glucose detection by automated test strip NEGATIVE NEGATIVE Erythrocytes detection in urine sediment by light microscopy 1+ NEGATIVE Urine ketones detection by automated test strip NEGATIVE NEGATIVE Urine nitrite detection by test strip NEGATIVE NEGATIVE Urine total bilirubin detection by test strip NEGATIVE NEGATIVE Urine urobilinogen measurement by automated test strip (mass/volume) NORMAL NORMAL Urine leukocyte esterase detection by dipstick 3+ NEGATIVE Automated urine sediment erythrocyte count by microscopy (number/high power field) [HPF] NRG Automated urine sediment leukocyte count by microscopy (number/high power field ) [HPF] NRG Bacteria detection in urine sediment by light microscopy TRACE NRG Squamous epithelial cells detection in urine sediment by light microscopy 25-50 NRG Crystals detection in urine sediment by light microscopy NONE NRG Casts detection in urine sediment by light microscopy NONE NRG Mucus detection in urine sediment by light microscopy NEGATIVE NRG Complete urinalysis with reflex to culture YES NRG Bacterial urine culture - 11/19/16 11:55 Bacterial urine culture SEE COMMEN NRG COLONY COUNT . NRG Complete blood count (CBC) with automated white blood cell (WBC) differential - 11/20/16 05:38 Blood leukocytes automated count (number/volume) 7.3 10*3/uL 4.3-11.0 Blood erythrocytes automated count (number/volume) 3.98 10*6/uL 4.35-5.85 Venous blood hemoglobin measurement (mass/volume) 12.6 g/dL 11.5-16.0 Blood hematocrit (volume fraction) 37 % 35-52 Automated erythrocyte mean corpuscular volume 93 [foz_us] 80-99 Automated erythrocyte mean corpuscular hemoglobin (mass per erythrocyte) 32 pg 25-34 Automated erythrocyte mean corpuscular hemoglobin concentration measurement ( mass/volume) 34 g/dL 32-36 Automated erythrocyte distribution width ratio 12.8 % 10.0-14.5 Automated blood platelet count (count/volume) 174 10*3/uL 130-400 Automated blood platelet mean volume measurement 9.1 [foz_us] 7.4-10.4 Automated blood neutrophils/100 leukocytes 67 % 42-75 Automated blood lymphocytes/100 leukocytes 22 % 12-44 Blood monocytes/100 leukocytes 9 % 0-12 Automated blood eosinophils/100 leukocytes 1 % 0-10 Automated blood basophils/100 leukocytes 0 % 0-10 Blood neutrophils automated count (number/volume) 4.9 10*3 1.8-7.8 Blood lymphocytes automated count (number/volume) 1.6 10*3 1.0-4.0 Blood monocytes automated count (number/volume) 0.7 10*3 0.0-1.0 Automated eosinophil count 0.1 10*3/uL 0.0-0.3 Automated blood basophil count (count/volume) 0.0 10*3/uL 0.0-0.1 Comprehensive metabolic panel - 11/20/16 05:38 Serum or plasma sodium measurement (moles/volume) 136 mmol/L 135-145 Serum or plasma potassium measurement (moles/volume) 4.1 mmol/L 3.6-5.0 Serum or plasma chloride measurement (moles/volume) 107 mmol/L 98-107 Carbon dioxide 20 mmol/L 21-32 Serum or plasma anion gap determination (moles/volume) 9 mmol/L 5-14 Serum or plasma urea nitrogen measurement (mass/volume) 16 mg/dL 7-18 Serum or plasma creatinine measurement (mass/volume) 0.88 mg/dL 0.60-1.30 Serum or plasma urea nitrogen/creatinine mass ratio 18 NRG Serum or plasma creatinine measurement with calculation of estimated glomerular filtration rate > NRG Serum or plasma glucose measurement (mass/volume) 99 mg/dL 70-105 Serum or plasma calcium measurement (mass/volume) 8.9 mg/dL 8.5-10.1 Serum or plasma total bilirubin measurement (mass/volume) 0.5 mg/dL 0.1-1.0 Serum or plasma alkaline phosphatase measurement (enzymatic activity/volume) 44 U/L 40-136 Serum or plasma aspartate aminotransferase measurement (enzymatic activity/ volume) 27 U/L 5-34 Serum or plasma alanine aminotransferase measurement (enzymatic activity/volume ) 21 U/L 0-55 Serum or plasma protein measurement (mass/volume) 6.8 g/dL 6.4-8.2 Serum or plasma albumin measurement (mass/volume) 3.9 g/dL 3.2-4.5 Encounters ACCT No. Visit Date/Time Discharge Status Pt. Type Provider Facility Loc./Unit Complaint [id number] 02/25/2017 08:36:00 02/25/2017 23:59:59 CLS Outpatient IVAN BAH MD [facility] CATH CRYPTOGENIC CVA [id number] 02/13/2017 13:30:00 02/13/2017 15:33:00 DIS Outpatient LILIAN DOBSON [facility] REHAB CVA;REFLUX, DYSPHAGIA POST STROKE [id number] 01/07/2017 09:56:00 01/10/2017 00:01:00 DIS Outpatient LILIAN DOBSON [facility] REHAB CVA;REFLUX, DYSPHAGIA POST STROKE [id number] 11/20/2016 09:52:00 11/21/2016 11:20:00 DIS Inpatient NIKKIE KANG, CHRISTINE Bolaños [facility] 4TH AMS [id number] 06/04/2016 14:24:00 06/04/2016 23:59:59 CLS Outpatient MELO TABITHAMESHA Israel APRN [facility] RAD SCREENING [id number] 03/29/2015 12:47:00 03/29/2015 23:59:59 CLS Outpatient LILIAN DOBSON [facility] RAD ROUTINE SCREENING [id number] 03/31/2014 13:56:00 03/31/2014 23:59:59 CLS Outpatient MIRIAN ARNOLD MD [facility] RAD HTN,SYNCOPE,VERTIGO, SCREENING [id number] 03/28/2013 08:54:00 03/28/2013 23:59:59 CLS Outpatient MIRIAN ARNOLD MD [facility] RAD SCREENING [id number] 05/26/2017 09:15:00 Document Registration [id number] 05/04/2012 08:32:00 Document Registration [id number] 03/10/2012 09:19:00 Document Registration [id number] 04/08/2011 06:10:00 Document Registration [id number] 03/03/2011 00:00:00 Document Registration [id number] 02/17/2011 08:47:00 Document Registration [id number] 01/20/2011 00:00:00 Document Registration [id number] 12/03/2010 10:49:00 Document Registration [id number] 11/26/2010 08:55:00 Document Registration [id number] 10/22/2010 10:15:00 Document Registration [id number] 02/28/2010 05:38:00 Document Registration [id number] 02/25/2010 09:09:00 Document Registration [id number] 02/12/2010 09:01:00 Document Registration [id number] 02/11/2010 07:52:00 Document Registration [id number] 02/05/2010 08:40:00 Document Registration
[2017-05-27 15:46] VITALS: BP 145/65
--- OUTSIDE RECORDS SUMMARY | 2017-05-28 09:44 | XMS REPORT | Continuity of Care Document ---
Author Author [facility] Organization [facility] Address Unknown Phone Unavailable Allergies Active Description Code Type Severity Reaction Onset Reported/Identified Relationship to Patient Clinical Status Yes latex [id number] Drug Allergy Unknown N/A 05/16/2005 Yes Sulfa (Sulfonamide Antibiotics) [id number] Drug Allergy Unknown N/A 2005 Yes No Allergy Information Available [id number] Drug Allergy Unknown N/A 2016 Medications There [...] LUNDY MD Ot H40.9 UNSPECIFIED GLAUCOMA 11/21/2016 CHRSITINE LUNDY MD Ot I10 ESSENTIAL (PRIMARY) HYPERTENSION [...] AND CEREB INFRC W 12/04/2016 LILIAN DOBSON NURSE WOUND Ot I63.9 CEREBRAL INFARCTION, UNSPECIFIED 12/08/2016 LILIAN DOBSON NURSE WOUND Ot I63.9 CEREBRAL INFARCTION, UNSPECIFIED 01/10/2017 LILIAN DOBSON NURSE WOUND Ot 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 Type Provider Facility Loc./Unit Complaint [id number] 02/25/2017 08:36:00 02/25/2017 23:59:59 CLS Outpatient IVAN BAH MD [facility] CATH CRYPTOGENIC CVA [id number] 02/13/2017 13:30:00 02/13/2017 15:33:00 DIS Outpatient LILIAN DOBSON [facility] REHAB CVA;REFLUX, DYSPHAGIA POST STROKE [id number] 01/07/2017 09:56:00 01/10/2017 00:01:00 DIS Outpatient LILIAN DOSBON [facility] REHAB CVA;REFLUX, DYSPHAGIA POST STROKE [id number] 11/20/2016 09:52:00 11/21/2016 11:20:00 DIS Inpatient NIKIKE KANG, CHRISTINE Bolaños [facility] 4TH AMS [id number] 06/04/2016 14:24:00 06/04/2016 23:59:59 CLS Outpatient MELO TABITHAMESHA Israel APRN [facility] RAD SCREENING [id number] 03/29/2015 12:47:00 03/29/2015 23:59:59 CLS Outpatient LILIAN DOBSON [facility] RAD ROUTINE SCREENING [id number] 03/31/2014 13:56:00 03/31/2014 23:59:59 CLS Outpatient MIRIAN ARNOLD MD [facility] RAD HTN,SYNCOPE,VERTIGO, SCREENING [id number] 03/28/2013 08:54:00 03/28/2013 23:59:59 CLS Outpatient MIRIAN ARNOLD MD [facility] RAD SCREENING [id number] 05/26/2017 09:15:00 Document Registration [id number] 05/04/2012 08:32:00 Document Registration [id number] 03/10/2012 09:19:00 Document Registration [id number] 04/08/2011 06:10:00 Document Registration [id number] 03/03/2011 00:00:00 Document Registration [id number] 02/17/2011 08:47:00 Document Registration [id number] 01/20/2011 00:00:00 Document Registration [id number] 12/03/2010 10:49:00 Document Registration [id number] 11/26/2010 08:55:00 Document Registration [id number] 10/22/2010 10:15:00 Document Registration [id number] 02/28/2010 05:38:00 Document Registration [id number] 02/25/2010 09:09:00 Document Registration [id number] 02/12/2010 09:01:00 Document Registration [id number] 02/11/2010 07:52:00 Document Registration [id number] 02/05/2010 08:40:00 Document Registration
== END 2017-05-27 15:15 | DRG 65 ==
LOC: EDUNIT# 09:01 → ER 09:02 → ICU 12:30 → 4TH 14:52
PROVIDERS: ADMIT Internal Medicine; ATTEND Internal Medicine
DX: I63.211 Cerebral infarction due to unspecified occlusion or stenosis of right vertebral artery (principal); G81.94 Hemiplegia, unspecified affecting left nondominant side; R47.1 Dysarthria and anarthria; R51 Headache; R29.704 NIHSS score 4; I10 Essential (primary) hypertension; I48.91 Unspecified atrial fibrillation; E11.9 Type 2 diabetes mellitus without complications; K21.9 Gastro-esophageal reflux disease without esophagitis; R53.82 Chronic fatigue, unspecified; F17.200 Nicotine dependence, unspecified, uncomplicated; L93.0 Discoid lupus erythematosus; E78.00 Pure hypercholesterolemia, unspecified; E78.5 Hyperlipidemia, unspecified; M19.91 Primary osteoarthritis, unspecified site; H40.9 Unspecified glaucoma; F41.9 Anxiety disorder, unspecified; K76.9 Liver disease, unspecified; K64.9 Unspecified hemorrhoids; W19.XXXA Unspecified fall, initial encounter; Y92.009 Unspecified place in unspecified non-institutional (private) residence as the place of occurrence of the external cause; Z86.73 Personal history of transient ischemic attack (TIA), and cerebral infarction without residual deficits; Z79.02 Long term (current) use of antithrombotics/antiplatelets; Z79.82 Long term (current) use of aspirin; Z87.19 Personal history of other diseases of the digestive system; Z88.2 Allergy status to sulfonamides
CPT/HCPCS: 36415; 70450; 70496; 70498; 70553; 71045; 80048; 80053; 81000; 84484; 85025; 85379; 85610; 85730; 93005; 93041; 96361; 96374

== ENCOUNTER 2017-10-16 12:35 | Outpatient (CLI) | payer MEDICARE ==
[~2017-10-16] VITALS: Ht 157.5 cm; Wt 69.5 kg
[~2017-10-16 12:35] MED LIST changes: +AZAT50TA PO; +CLON0.5T13 PO; -CLON0.5T3 PO; +FAMO-119 PO; +FOLI1TAB24 PO; -SPIR25TA3 PO; +SPIR25TA5 PO
[2017-10-16 12:40] VITALS: BP 150/61
[2017-10-16 15:13] LABS: APPEARANCE,CSF CLEAR; COLOR,CSF COLORLESS; CSF TUBE NUMBER 4; RED BLOOD CELL,CSF 0 CELLS (0-0); WHITE BLOOD CELL,CSF 0 CELLS (0-5)
--- NOTE | 2017-10-16 15:13 | Anesthesia-Procedure Note ---
Procedures/Interventions Procedure Start/Stop/Diagnosis Date of Procedure: Oct 16, 2017 Start Time: 14:35 Referring Physician: Ashley Wooten APRN Stop Time: 14:55 Lumbar Puncture Discussed Risk,Benefits: Yes Patient Consents: Yes Position: Lying, Left Sterile Technique: Yes Opening Pressure: 20.5 Fluid Color: Clear Spinal Needle Used: Other (25 g pencan) Procedure Notes To SDC. Patient to left side lying position. Hips and back palpated. L3/4 interspace ID'd. beta prep x 3, Fenestrated drape placed on back, wiped dry. 4cc of 1% lidocaine skin local. 18g introducer with 25 g Pencan. Multiple redirections. +CSF flow, opening pressure as above. 4 vials of CSF with 1-2cc in each, labeled and to lab by RN. Needle removed. To supine position. Instructed not to take blood thinners until tomorrow. May be dismissed in 30 minutes as long as not problems noted. VANESSA MARTINEZ CRNA Oct 16, 2017 15:13
[2017-10-16 15:33] LABS: CSF GLUCOSE 54 MG/DL (50-80); CSF TOTAL PROTEIN 79 MG/DL (15-40)
== END 2017-10-16 15:45 | disposition home or self-care (01) ==
LOC: SDC 12:35
PROVIDERS: ATTEND Nurse Practitioner Family
DX: I63.9 Cerebral infarction, unspecified (principal); D89.89 Other specified disorders involving the immune mechanism, not elsewhere classified
CPT/HCPCS: 82945; 84157; 89051

== ENCOUNTER 2017-11-19 14:10 | Outpatient (RCR) | payer MEDICARE | END 2017-11-19 15:19 | disposition home or self-care (01) | PROVIDERS: ATTEND Family Medicine | DX: I69.351 Hemiplegia and hemiparesis following cerebral infarction affecting right dominant side (principal); E11.9 Type 2 diabetes mellitus without complications; M32.9 Systemic lupus erythematosus, unspecified ==

== ENCOUNTER 2017-12-23 10:52 | Emergency (ER) | payer MEDICARE ==
[~2017-12-23] VITALS: Ht 154.9 cm; Wt 68.0 kg
[~2017-12-23 10:52] MED LIST changes: -LOSA100T28 PO; +LOSA100T8 PO
--- OUTSIDE RECORDS SUMMARY | 2017-12-23 10:57 | XMS REPORT | Encounter Summary ---
Author Author [facility] Organization [facility] Address Unknown Phone Unavailable Care Team Providers Care Edging Machine Operator Name Role Phone Maria Luisa Echeverria MD PCP Encounter Details Date Type Department Care Team Description 10/02/2017 Ancillary Rad Outpatient, Radiologist Diagnosis unknown Orders [address] [place] [address] Social History Tobacco Use Types Packs/Day Years Used Date Never Smoker Smokeless Tobacco: Never Used Alcohol Use Drinks/Week oz/Week Comments No Sex Assigned at Date Recorded Not on file as of this encounter Plan of Treatment Not on fileas of this encounter Results * MRI HEAD EXTERNAL IMAGING (05/25/2017) Narrative Performed At This order has been auto finalized and does not contain a result. in this encounter Visit Diagnoses Diagnosis Diagnosis unknown Other unknown and unspecified cause of morbidity or mortality
--- OUTSIDE RECORDS SUMMARY | 2017-12-23 10:57 | XMS REPORT | Encounter Summary ---
Author Author [facility] Organization [facility] Address Unknown Phone Unavailable Care Team Providers Care Research & Insights Executive Name Role Phone Maria Luisa Echeverria MD PCP Reason for Visit * Reason Comments General Question Encounter Details Date Type Department Care Team Description 10/09/2017 Telephone [facility] Edmar Macario DO General Question Physicians-Neurology [address] [facility] [place] [address] [place] [address] [place], [place] [phone] Social History Tobacco Use Types Packs/Day Years Used Date Never Smoker Smokeless Tobacco: Never Used Alcohol Use Drinks/Week oz/Week Comments No Sex Assigned at Date Recorded Not on file as of this encounter Miscellaneous Notes * Telephone Encounter - Sri Roque LPN - 10/09/2017 1:07 PM CDT PCP office notified of diagnosis * Telephone Encounter - Sri Roque LPN - 10/09/2017 7:29 AM CDT Received phone call from pt's PCP office stating that Dr. Macario wanted pt to have a LP done. They were wanting to know what the associated diagnosis is for that procedure. Please advise? in this encounter Plan of Treatment Not on fileas of this encounter Visit Diagnoses Not on filein this encounter
--- OUTSIDE RECORDS SUMMARY | 2017-12-23 10:57 | XMS REPORT | Clinical Summary ---
Author Author [facility] Organization [facility] Address Unknown Phone Unavailable Care Team Providers Care [employer] Name Role Phone Maria Luisa Echeverria MD PCP Source Comments Some departments are not documenting in the electronic medical record. If you do not see the information that you expected, contact Release of Information in the Health Information Management department at [phone] for further assistance in locating additional records.[facility] Allergies Active Allergy Reactions Severity Noted Date Comments Latex ANAPHYLAXIS High 09/16/2017 Sulfa (Sulfonamide RASH Medium 09/16/2017 Antibiotics) Current Medications Prescription Sig. Disp. Refills Start End Date Status Date clonazePAM (KLONOPIN) 0.5 Take 0.5 mg by mouth Active mg tablet twice daily. amLODIPine (NORVASC) 5 mg Take 5 mg by mouth daily. Active tablet fluoxetine(+) (PROZAC) 40 Take 40 mg by mouth Active mg capsule daily. folic acid (FOLVITE) 1 mg Take 1 mg by mouth daily. Active tablet azaTHIOprine (IMURAN) 50 Take 50 mg by mouth Active mg tabletIndications: daily. Take 1.5 daily ergocalciferol (VITAMIN Take 1 capsule by mouth Active D-2) 50,000 unit capsule every 7 days. clopiDOGrel (PLAVIX) 75 Take 75 mg by mouth Active mg tablet daily. blood-glucose meter (ONE Use as directed. Active TOUCH ULTRA BONUS PACK MISC) pravastatin (PRAVACHOL) Take 80 mg by mouth at Active 80 mg tablet bedtime daily. diphenoxylate/atropine Take 1 tablet by mouth Active (LOMOTIL) 2.5/0.025 mg four times daily as tablet needed for Diarrhea. losartan(+) (COZAAR) 100 Take 100 mg by mouth Active mg tablet daily. pramipexole (MIRAPEX) 0.5 Take 0.5 mg by mouth Active mg tablet three times daily. timolol maleate 1 drop twice daily. Active (TIMOPTIC) 0.5 % ophthalmic drops Bimatoprost (LUMIGAN) Place into or around Active 0.01 % drop eye(s). denosumab (PROLIA) 60 Inject 60 mg under the Active mg/mL syrg skin once. 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 The etiology of her stroke remains cryptogenic at this time. With the scattered appearance of her infarcts I would be most concerned for a cardiac source. She has been evaluated for this and in fact already had the implantable monitor in place when she had her second stroke. Without any clear evidence of a cardiac source, my differential would also include an autoimmune or vasculitis type etiology with her history. The vertebral artery stenosis does not appear to be the cause of her most recent stroke because it was located in an area supplied by the anterior circulation. It is somewhat concerning that it developed within 6 months are less. - She is currently on ASA and Plavix. From a stroke standpoint she may continue on monotherapy with ASA or Plavix. There is no evidence for terminal block assembler dual antiplatelet therapy for stroke - Agree with cardiology evaluation and recommend to continue with Linq, implantable cafeteria monitor - Recommend Lumbar puncture to evaluate for any autoimmune or inflammatory process. Would check CSF cell count, glucose, and protein. Could on additional test if results are abnormal. If there is evidence of an autoimmune process she will need to follow up with her radiation safety officer. - Consider repeat CTA neck to evaluate area of stenosis to determine if it has progressed further and/or to see if may have been an etiology other than athero - ongoing secondary stroke risk factor modification o Goal LDL less than 100 o Goal Hgb A1C less than 7 o Goal SBP less than 140 - Stroke education provided to patient and Encounters Date Type Specialty Care Team Description 10/09/2017 Telephone Neurology Edmar Macario DO General Question 10/02/2017 Ancillary Radiology Outpatient, Radiologist Diagnosis unknown Orders from Last 3 Months Social History Tobacco Use Types Packs/Day Years Used Date Never Smoker Smokeless Tobacco: Never Used Alcohol Use Drinks/Week oz/Week Comments No Sex Assigned at Date Recorded Not on file Last Filed Vital Signs Vital Sign Reading Time Taken Blood Pressure 165/76 09/16/2017 11:45 AM CDT Pulse 61 09/16/2017 11:45 AM CDT Temperature - - Respiratory Rate - - Oxygen Saturation - - Inhaled Oxygen - - Concentration Weight 72.6 kg (160 lb) 09/16/2017 11:45 AM CDT Height 154.9 cm (5' 1") 09/16/2017 11:45 AM CDT Body Mass Index 30.23 09/16/2017 11:45 AM CDT Plan of Treatment Health Maintenance Due Date Last Done Comments HEPATITIS C SCREENING 1945 PHYSICAL (COMPREHENSIVE) 11/15/1954 EXAM PERTUSSIS VACCINE 11/15/1958 TETANUS VACCINE 11/15/1964 BREAST CANCER SCREENING 1987 COLORECTAL CANCER 11/15/1997 SCREENING SHINGLES RECOMBINANT 11/15/1997 VACCINE (1 of 2) OSTEOPOROSIS SCREENING 11/15/2012 PNEUMONIA (PCV13/PPSV23) 11/15/2012 VACCINES (1 of 2 - PCV13) INFLUENZA VACCINE 01/11/2018 Results Not on filefrom Last 3 Months
--- OUTSIDE RECORDS SUMMARY | 2017-12-23 11:05 | XMS REPORT | Continuity of Care Document ---
Author Author [facility] Organization [facility] Address Unknown Phone Unavailable Allergies Active Description Code Type Severity Reaction Onset Reported/Identified Relationship to Patient Clinical Status Yes latex [id number] Drug Allergy Unknown N/A 05/16/2005 Yes Sulfa (Sulfonamide Antibiotics) [id number] Drug Allergy Unknown N/A 2005 Yes No Allergy Information Available [id number] Drug Allergy Unknown N/A 2016 Medications There [...] AND CEREB INFRC W 12/04/2016 LILIAN DOBSON [employer] Ot I63.9 CEREBRAL INFARCTION, UNSPECIFIED 12/08/2016 LILIAN DOBSON [employer] OPERATOR Ot I63.9 CEREBRAL INFARCTION, UNSPECIFIED 01/10/2017 LILIAN DOBSON [employer] OPERATOR Ot 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 01/10/2017 LILIAN DOBSONP Ot K21.9 GASTRO-ESOPHAGEAL REFLUX DISEASE WITHOUT 01/14/2017 LILIAN DOBSON [employer] OPERATOR Ot I63.9 CEREBRAL INFARCTION, UNSPECIFIED 02/13/2017 LILIAN DOBSON [employer] OPERATOR Ot I63.9 CEREBRAL INFARCTION, UNSPECIFIED 03/23/2017 IVAN [...] Ot Z88.2 ALLERGY STATUS TO SULFONAMIDES STATUS 05/27/2017 FALLON KANG, STEPHANE Sheikh Ot E11.9 TYPE 2 DIABETES MELLITUS WITHOUT COMPLIC 05/27/2017 FALLON KANG, STEPHANE Sheikh Ot E78.00 PURE HYPERCHOLESTEROLEMIA, UNSPECIFIED 05/27/2017 FALLON KANG, STEPHANE Sheikh Ot E78.5 HYPERLIPIDEMIA, UNSPECIFIED 05/27/2017 FALLON KANG, STEPHANE Sheikh Ot F17.200 NICOTINE DEPENDENCE, UNSPECIFIED, UNCOMP 05/27/2017 STEPHANE LEHMAN MD Ot F41.9 ANXIETY DISORDER, UNSPECIFIED 05/27/2017 FALLON KANG, STEPHANE Sheikh Ot G81.94 HEMIPLEGIA, UNSPECIFIED AFFECTING LEFT N 05/27/2017 STEPHANE LEHMAN MD Ot H40.9 UNSPECIFIED GLAUCOMA 05/27/2017 STEPHANE LEHMAN MD Ot I10 ESSENTIAL (PRIMARY) HYPERTENSION 05/27/2017 FALLON KANG, STEPHANE Sheikh Ot I48.91 UNSPECIFIED ATRIAL FIBRILLATION 05/27/2017 STEPHANE LEHMAN MD Ot I63.211 CEREBRAL INFRC DUE TO UNSP OCCLS OR STEN 05/27/2017 STEPHANE LEHMAN MD Ot K21.9 GASTRO-ESOPHAGEAL REFLUX DISEASE WITHOUT 05/27/2017 STEPHANE LEHMAN MD Ot K64.9 UNSPECIFIED HEMORRHOIDS 05/27/2017 STEPHANE LEHMAN MD, Ot K76.9 LIVER DISEASE, UNSPECIFIED 05/27/2017 STEPHANE LEHMAN MD Ot L93.0 DISCOID LUPUS ERYTHEMATOSUS 05/27/2017 STEPHANE LEHMAN MD, Ot M19.91 PRIMARY OSTEOARTHRITIS, UNSPECIFIED SITE 05/27/2017 STEPHANE LEHMAN MD, Ot R29.704 NIHSS SCORE 4 05/27/2017 STEPHANE LEHMAN MD, Ot R47.1 DYSARTHRIA AND ANARTHRIA 05/27/2017 STEPHANE LEHMAN MD, Ot R51 HEADACHE 05/27/2017 STEPHANE LEHMNA MD, Ot R53.82 CHRONIC FATIGUE, UNSPECIFIED 05/27/2017 STEPHANE LEHMAN MD Ot W19.XXXA UNSPECIFIED FALL, INITIAL ENCOUNTER 05/27/2017 FALLON KANG, STEPHANE Sheikh Ot Y92.[address] [facility] ([facility] 05/27/2017 STEPHANE LEHMAN MD Ot Z79.02 [facility] (CURRENT) USE OF ANTITHROMBOTI 05/27/2017 STEPHANE LEHMAN MD Ot Z79.82 [facility] (CURRENT) USE OF ASPIRIN 05/27/2017 STEPHANE LEHMAN MD Ot Z86.73 PRSNL HX OF TIA (TIA), AND CEREB INFRC W 05/27/2017 STEPHANE LEHMAN MD Ot Z87.19 PERSONAL HISTORY OF OTHER DISEASES OF TH 05/27/2017 STEPHANE LEHMAN MD Ot Z88.2 ALLERGY STATUS TO SULFONAMIDES STATUS 10/07/2017 CHRISTINE LUNDY MD Ot E11.9 TYPE 2 DIABETES MELLITUS WITHOUT COMPLIC 10/07/2017 CHRISTINE LUNDY MD Ot I69.351 HEMIPLGA FOLLOWING CEREBRAL INFRC AFF RI 10/07/2017 CHRISTINE LUNDY MD, Ot M32.9 SYSTEMIC LUPUS ERYTHEMATOSUS, UNSPECIFIE 10/08/2017 TABITHA ALEJO APRN Ot Z01.818 ENCOUNTER FOR OTHER PREPROCEDURAL EXAMIN 10/08/2017 TABITHA ALEJO APRN Ot Z86.2 PRSNL HISTORY OF DIS OF THE BLD/BLD-FORM 10/08/2017 MELOTABITHA [employer] PU[employer] Ot Z86.73 PRSNL HX OF TIA (TIA), AND CEREB INFRC W 10/16/2017 Ot 789.00 ABDOMINAL PAIN, UNSPECIFIED SITE 10/16/2017 Ot V81.5 SCREEN FOR NEPHROPATHY 10/16/2017 MIRIAN ARNOLD MD Ot 610.1 DIFFUS CYSTIC MASTOPATHY 10/16/2017 MIRIAN ARNOLD MD Ot V76.12 OTH SCREEN MAMMO-MALIGN NEOPLASM OF MARK 10/16/2017 MIRIAN ARNOLD MD Ot 401.9 HYPERTENSION NOS 10/16/2017 MIRIAN ARNOLD MD Ot 780.2 SYNCOPE AND COLLAPSE 10/16/2017 MIRIAN ARNOLD MD Ot 780.4 DIZZINESS AND GIDDINESS 10/16/2017 MIRIAN ARNOLD MD Ot V76.12 OTH SCREEN MAMMO-MALIGN NEOPLASM OF MARK 10/16/2017 LILIAN DOBSON Ot Z12.31 ENCNTR SCREEN MAMMOGRAM FOR MALIGNANT NE 10/16/2017 TABITHA ALEJO APRN Ot Z12.31 ENCNTR SCREEN MAMMOGRAM FOR MALIGNANT NE 10/16/2017 IVAN BAH MD Ot E11.9 TYPE 2 DIABETES MELLITUS WITHOUT COMPLIC 10/16/2017 IVAN BAH MD Ot E78.2 MIXED HYPERLIPIDEMIA 10/16/2017 IVAN BAH MD Ot I10 ESSENTIAL (PRIMARY) HYPERTENSION 10/16/2017 IVAN BAH MD Ot I63.9 CEREBRAL INFARCTION, UNSPECIFIED 10/16/2017 IVAN BAH MD Ot I65.23 OCCLUSION AND STENOSIS OF BILATERAL CARRILLO 10/16/2017 IVAN BAH MD Ot M81.0 AGE-RELATED OSTEOPOROSIS W/O CURRENT PAT 10/16/2017 IVAN BAH MD Ot Z82.49 FAMILY HX OF ISCHEM HEART DIS AND OTH DI 10/16/2017 IVAN BAH MD Ot Z88.2 ALLERGY STATUS TO SULFONAMIDES STATUS 10/16/2017 CHRISTINE LUNDY MD Ot E11.9 TYPE 2 DIABETES MELLITUS WITHOUT COMPLIC 10/16/2017 CHRISTINE LUNDY MD Ot I69.351 HEMIPLGA FOLLOWING CEREBRAL INFRC AFF RI 10/16/2017 CHRISTINE LUNDY MD Ot M32.9 SYSTEMIC LUPUS ERYTHEMATOSUS, UNSPECIFIE 10/16/2017 TABITHA ALEJO APRN Ot Z01.818 ENCOUNTER FOR OTHER PREPROCEDURAL EXAMIN 10/16/2017 TABITHA ALEJO [employer] Ot Z86.2 PRSNL HISTORY OF DIS OF THE BLD/BLD-FORM 10/16/2017 TABITHA ALEJO [employer] Ot Z86.73 PRSNL HX OF TIA (TIA), AND CEREB INFRC W 10/16/2017 TABITHA ALEJO APRN Ot 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 MECHANISM 10/16/2017 TABITHA ALEJO [employer] Ot I63.9 CEREBRAL INFARCTION, UNSPECIFIED 10/19/2017 TABITHA ALEJO APRN Ot 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 MECHANISM 10/19/2017 TABITHA ALEJO APRN Ot I63.9 CEREBRAL INFARCTION, UNSPECIFIED 10/27/2017 TABITHA ALEJO APRN Ot Z01.818 ENCOUNTER FOR OTHER PREPROCEDURAL EXAMIN 10/27/2017 TABITHA ALEJO APRN Ot Z86.2 PRSNL HISTORY OF DIS OF THE BLD/BLD-FORM 10/27/2017 TABITHA ALEJO APRN Ot Z86.73 PRSNL HX OF TIA (TIA), AND CEREB INFRC W 11/02/2017 CHRISTINE LUNDY MD Ot E11.9 TYPE 2 DIABETES MELLITUS WITHOUT COMPLIC 11/02/2017 CHRISTINE LUNDY MD Ot I69.351 HEMIPLGA FOLLOWING CEREBRAL INFRC AFF RI 11/02/2017 CHRISTINE LUNDY MD Ot M32.9 SYSTEMIC LUPUS ERYTHEMATOSUS, UNSPECIFIE 11/04/2017 TABITHA ALEJO APRN Ot Z01.818 ENCOUNTER FOR OTHER PREPROCEDURAL EXAMIN 11/04/2017 TABITHA ALEJO APRN Ot Z86.2 PRSNL HISTORY OF DIS OF THE BLD/BLD-FORM 11/04/2017 TABITHA ALEJO APRN Ot Z86.73 PRSNL HX OF TIA (TIA), AND CEREB INFRC W 11/04/2017 CHRISTINE LUNDY MD Ot E11.9 TYPE 2 DIABETES MELLITUS WITHOUT COMPLIC 11/04/2017 NIKKIE KANG, CHRISTINE Miky Ot I69.351 HEMIPLGA FOLLOWING CEREBRAL INFRC AFF RI 11/04/2017 CHRISTINE LUNDY MD Miky Ot M32.9 SYSTEMIC LUPUS ERYTHEMATOSUS, UNSPECIFIE 11/19/2017 CHRISTINE LUNDY MD Ot E11.9 TYPE 2 DIABETES MELLITUS WITHOUT COMPLIC 11/19/2017 CHRISTINE LUNDY MD Ot I69.351 HEMIPLGA FOLLOWING CEREBRAL INFRC AFF RI 11/19/2017 CHRISTINE LUNDY MD Miky Ot M32.9 SYSTEMIC LUPUS ERYTHEMATOSUS, UNSPECIFIE Procedures There is no data. Results Test [...] plasma albumin measurement (mass/volume) 3.9 g/dL 3.2-4.5 Complete blood count (CBC) with automated white blood cell (WBC) differential - 05/24/17 09:14 Blood leukocytes automated count (number/volume) 8.6 10*3/uL 4.3-11.0 Blood erythrocytes automated count (number/volume) 4.49 10*6/uL 4.35-5.85 Venous blood hemoglobin measurement (mass/volume) 14.7 g/dL 11.5-16.0 Blood hematocrit (volume fraction) 43 % 35-52 Automated erythrocyte mean corpuscular volume 95 [foz_us] 80-99 Automated erythrocyte mean corpuscular hemoglobin (mass per erythrocyte) 33 pg 25-34 Automated erythrocyte mean corpuscular hemoglobin concentration measurement ( mass/volume) 34 g/dL 32-36 Automated erythrocyte distribution width ratio 12.9 % 10.0-14.5 Automated blood platelet count (count/volume) 236 10*3/uL 130-400 Automated blood platelet mean volume measurement 9.0 [foz_us] 7.4-10.4 Automated blood neutrophils/100 leukocytes 71 % 42-75 Automated blood lymphocytes/100 leukocytes 18 % 12-44 Blood monocytes/100 leukocytes 10 % 0-12 Automated blood eosinophils/100 leukocytes 0 % 0-10 Automated blood basophils/100 leukocytes 1 % 0-10 Blood neutrophils automated count (number/volume) 6.1 10*3 1.8-7.8 Blood lymphocytes automated count (number/volume) 1.5 10*3 1.0-4.0 Blood monocytes automated count (number/volume) 0.9 10*3 0.0-1.0 Automated eosinophil count 0.0 10*3/uL 0.0-0.3 Automated blood basophil count (count/volume) 0.1 10*3/uL 0.0-0.1 PT panel in platelet poor plasma by coagulation assay - 05/24/17 09:14 Prothrombin time (PT) in platelet poor plasma by coagulation assay 11.5 s 12.2-14.7 INR in platelet poor plasma or blood by coagulation assay 0.8 0.8-1.4 Activated partial thromboplastin time (aPTT) in platelet poor plasma bycoagulation assay - 05/24/17 09:14 Activated partial thromboplastin time (aPTT) in platelet poor plasma bycoagulation assay 24 s 24-35 Fibrin D-dimer FEU measurement in platelet poor plasma (mass/volume) - 09:14 Fibrin D-dimer FEU measurement in platelet poor plasma (mass/volume) 0.39 ug/mL 0.00-0.49 Comprehensive metabolic panel - 05/24/17 09:14 Serum or plasma sodium measurement (moles/volume) 132 mmol/L 135-145 Serum or plasma potassium measurement (moles/volume) 5.6 mmol/L 3.6-5.0 Serum or plasma chloride measurement (moles/volume) 104 mmol/L 98-107 Carbon dioxide 17 mmol/L 21-32 Serum or plasma anion gap determination (moles/volume) 11 mmol/L 5-14 Serum or plasma urea nitrogen measurement (mass/volume) 18 mg/dL 7-18 Serum or plasma creatinine measurement (mass/volume) 1.11 mg/dL 0.60-1.30 Serum or plasma urea nitrogen/creatinine mass ratio 16 NRG Serum or plasma creatinine measurement with calculation of estimated glomerular filtration rate 49 NRG Serum or plasma glucose measurement (mass/volume) 99 mg/dL 70-105 Serum or plasma calcium measurement (mass/volume) 9.4 mg/dL 8.5-10.1 Serum or plasma total bilirubin measurement (mass/volume) 0.3 mg/dL 0.1-1.0 Serum or plasma alkaline phosphatase measurement (enzymatic activity/volume) 46 U/L 40-136 Serum or plasma aspartate aminotransferase measurement (enzymatic activity/ volume) 32 U/L 5-34 Serum or plasma alanine aminotransferase measurement (enzymatic activity/volume ) 23 U/L 0-55 Serum or plasma protein measurement (mass/volume) 7.8 g/dL 6.4-8.2 Serum or plasma albumin measurement (mass/volume) 4.3 g/dL 3.2-4.5 Serum or plasma troponin i.cardiac measurement (mass/volume) - 05/24/17 09:14 Serum or plasma troponin i.cardiac measurement (mass/volume) < ng/ mL <0.30 Complete urinalysis with reflex to culture - 05/24/17 11:41 Urine color determination YELLOW NRG Urine clarity determination CLEAR NRG Urine pH measurement by test strip 6.5 5-9 Specific gravity of urine by test strip 1.005 1.016- 1.022 Urine protein assay by test strip, semi-quantitative NEGATIVE NEGATIVE Urine glucose detection by automated test strip NEGATIVE NEGATIVE Erythrocytes detection in urine sediment by light microscopy NEGATIVE NEGATIVE Urine ketones detection by automated test strip NEGATIVE NEGATIVE Urine nitrite detection by test strip NEGATIVE NEGATIVE Urine total bilirubin detection by test strip NEGATIVE NEGATIVE Urine urobilinogen measurement by automated test strip (mass/volume) NORMAL NORMAL Urine leukocyte esterase detection by dipstick NEGATIVE NEGATIVE Automated urine sediment erythrocyte count by microscopy (number/high power field) NONE NRG Automated urine sediment leukocyte count by microscopy (number/high power field ) NONE NRG Bacteria detection in urine sediment by light microscopy NEGATIVE NRG Squamous epithelial cells detection in urine sediment by light microscopy 10-25 NRG Crystals detection in urine sediment by light microscopy NONE NRG Casts detection in urine sediment by light microscopy NONE NRG Mucus detection in urine sediment by light microscopy NEGATIVE NRG Complete urinalysis with reflex to culture NO NRG Complete blood count (CBC) with automated white blood cell (WBC) differential - 05/25/17 06:01 Blood leukocytes automated count (number/volume) 8.0 10*3/uL 4.3-11.0 Blood erythrocytes automated count (number/volume) 3.99 10*6/uL 4.35-5.85 Venous blood hemoglobin measurement (mass/volume) 13.0 g/dL 11.5-16.0 Blood hematocrit (volume fraction) 38 % 35-52 Automated erythrocyte mean corpuscular volume 95 [foz_us] 80-99 Automated erythrocyte mean corpuscular hemoglobin (mass per erythrocyte) 33 pg 25-34 Automated erythrocyte mean corpuscular hemoglobin concentration measurement ( mass/volume) 34 g/dL 32-36 Automated erythrocyte distribution width ratio 12.8 % 10.0-14.5 Automated blood platelet count (count/volume) 188 10*3/uL 130-400 Automated blood platelet mean volume measurement 8.6 [foz_us] 7.4-10.4 Automated blood neutrophils/100 leukocytes 73 % 42-75 Automated blood lymphocytes/100 leukocytes 17 % 12-44 Blood monocytes/100 leukocytes 9 % 0-12 Automated blood eosinophils/100 leukocytes 0 % 0-10 Automated blood basophils/100 leukocytes 0 % 0-10 Blood neutrophils automated count (number/volume) 5.9 10*3 1.8-7.8 Blood lymphocytes automated count (number/volume) 1.3 10*3 1.0-4.0 Blood monocytes automated count (number/volume) 0.8 10*3 0.0-1.0 Automated eosinophil count 0.0 10*3/uL 0.0-0.3 Automated blood basophil count (count/volume) 0.0 10*3/uL 0.0-0.1 Whole blood basic metabolic panel - 05/25/17 06:01 Serum or plasma sodium measurement (moles/volume) 136 mmol/L 135-145 Serum or plasma potassium measurement (moles/volume) 4.2 mmol/L 3.6-5.0 Serum or plasma chloride measurement (moles/volume) 108 mmol/L 98-107 Carbon dioxide 18 mmol/L 21-32 Serum or plasma anion gap determination (moles/volume) 10 mmol/L 5-14 Serum or plasma urea nitrogen measurement (mass/volume) 14 mg/dL 7-18 Serum or plasma creatinine measurement (mass/volume) 0.87 mg/dL 0.60-1.30 Serum or plasma urea nitrogen/creatinine mass ratio 16 NRG Serum or plasma creatinine measurement with calculation of estimated glomerular filtration rate > NRG Serum or plasma glucose measurement (mass/volume) 97 mg/dL 70-105 Serum or plasma calcium measurement (mass/volume) 8.7 mg/dL 8.5-10.1 Complete blood count (CBC) with automated white blood cell (WBC) differential - 10/07/17 09:12 Blood leukocytes automated count (number/volume) 6.2 10*3/uL 4.3-11.0 Blood erythrocytes automated count (number/volume) 4.11 10*6/uL 4.35-5.85 Venous blood hemoglobin measurement (mass/volume) 13.3 g/dL 11.5-16.0 Blood hematocrit (volume fraction) 39 % 35-52 Automated erythrocyte mean corpuscular volume 94 [foz_us] 80-99 Automated erythrocyte mean corpuscular hemoglobin (mass per erythrocyte) 32 pg 25-34 Automated erythrocyte mean corpuscular hemoglobin concentration measurement ( mass/volume) 35 g/dL 32-36 Automated erythrocyte distribution width ratio 13.3 % 10.0-14.5 Automated blood platelet count (count/volume) 217 10*3/uL 130-400 Automated blood platelet mean volume measurement 8.8 [foz_us] 7.4-10.4 Automated blood neutrophils/100 leukocytes 69 % 42-75 Automated blood lymphocytes/100 leukocytes 21 % 12-44 Blood monocytes/100 leukocytes 9 % 0-12 Automated blood eosinophils/100 leukocytes 0 % 0-10 Automated blood basophils/100 leukocytes 1 % 0-10 Blood neutrophils automated count (number/volume) 4.3 10*3 1.8-7.8 Blood lymphocytes automated count (number/volume) 1.3 10*3 1.0-4.0 Blood monocytes automated count (number/volume) 0.6 10*3 0.0-1.0 Automated eosinophil count 0.0 10*3/uL 0.0-0.3 Automated blood basophil count (count/volume) 0.0 10*3/uL 0.0-0.1 PT panel in platelet poor plasma by coagulation assay - 10/07/17 09:12 Prothrombin time (PT) in platelet poor plasma by coagulation assay 12.0 s 12.2-14.7 INR in platelet poor plasma or blood by coagulation assay 0.9 0.8-1.4 Activated partial thromboplastin time (aPTT) in platelet poor plasma bycoagulation assay - 10/07/17 09:12 Activated partial thromboplastin time (aPTT) in platelet poor plasma bycoagulation assay 24 s 24-35 Cerebrospinal fluid cell count - 10/16/17 14:51 Cerebrospinal fluid appearance description CLEAR NRG Cerebrospinal fluid color identification COLORLESS NRG Cerebrospinal fluid leukocytes count (number/volume) 0 % 0-5 Cerebrospinal fluid erythrocytes count (number/volume) 0 % 0-0 Manual cerebrospinal fluid lymphocytes/100 leukocytes TNP NRG Manual cerebrospinal fluid mononuclear cells/100 leukocytes TNP NRG Manual cerebrospinal fluid polymorphonuclear cells/100 leukocytes TNP NRG Cerebrospinal fluid cell count on specimen from last tube collected 4 NRG Cerebrospinal fluid glucose measurement (mass/volume) - 10/16/17 14:51 Cerebrospinal fluid glucose measurement (mass/volume) 54 mg/dL 50-80 Cerebrospinal fluid protein measurement (mass/volume) - 10/16/17 14:51 Cerebrospinal fluid protein measurement (mass/volume) 79 mg/dL 15-40 Encounters ACCT No. Visit Date/Time Discharge Status Pt. Type Provider Facility Loc./Unit Complaint [id number] 11/09/2017 09:57:00 11/09/2017 23:59:59 CLS Outpatient CHRISTINE LUNDY MD [facility] REHAB UPPER AND LOWER EXT WEAKNESS; HX OF STROKE [id number] 10/16/2017 12:35:00 10/16/2017 15:45:00 DIS Outpatient [facility] MULTIPLE CRYPTOGENIC STROKES [id number] 10/07/2017 08:31:00 10/07/2017 23:59:59 CLS Outpatient TABITHA ALEJO APRN [facility] RAD HX STROKE,AUTO IMMUNE [id number] 05/24/2017 12:30:00 05/27/2017 15:15:00 DIS Inpatient FALLON KANG, STEPHANE Sheikh [facility] 4TH POSS CVA/TIA [id number] 02/25/2017 08:36:00 02/25/2017 23:59:59 CLS Outpatient NIURKA KANG, IVAN Gimenez [facility] CATH CRYPTOGENIC CVA [id number] 02/13/2017 13:30:00 02/13/2017 15:33:00 DIS Outpatient LILIAN DOBSON [facility] REHAB CVA;REFLUX, DYSPHAGIA POST STROKE [id number] 01/07/2017 09:56:00 01/10/2017 00:01:00 DIS Outpatient LILIAN DOBSON [facility] REHAB CVA;REFLUX, DYSPHAGIA POST STROKE [id number] 11/20/2016 09:52:00 11/21/2016 11:20:00 DIS Inpatient CHRISTINE LUNDY MD [facility] 4TH AMS [id number] 06/04/2016 14:24:00 06/04/2016 23:59:59 CLS Outpatient TABITHA ALEJO APRN [facility] RAD SCREENING [id number] 03/29/2015 12:47:00 03/29/2015 23:59:59 CLS Outpatient LILIAN DOBSON [facility] RAD ROUTINE SCREENING [id number] 03/31/2014 13:56:00 03/31/2014 23:59:59 CLS Outpatient MIRIAN ARNOLD MD [facility] RAD HTN,SYNCOPE,VERTIGO, SCREENING [id number] 03/28/2013 08:54:00 03/28/2013 23:59:59 CLS Outpatient MIRIAN ARNODL MD [facility] RAD SCREENING [id number] 12/23/2017 10:53:00 ACT Emergency ZENAIDA NUR MD [facility] ER ALLERGIC REACTION [id number] 05/04/2012 08:32:00 Document Registration [id number] 03/10/2012 09:19:00 Document Registration [id number] 04/08/2011 06:10:00 Document Registration [id number] 03/03/2011 00:00:00 Document Registration [id number] 02/17/2011 08:47:00 Document Registration [id number] 01/20/2011 00:00:00 Document Registration [id number] 12/03/2010 10:49:00 Document Registration [id number] 11/26/2010 08:55:00 Document Registration [id number] 10/22/2010 10:15:00 Document Registration [id number] 02/28/2010 05:38:00 Document Registration [id number] 02/25/2010 09:09:00 Document Registration [id number] 02/12/2010 09:01:00 Document Registration [id number] 02/11/2010 07:52:00 Document Registration [id number] 02/05/2010 08:40:00 Document Registration
--- NOTE | 2017-12-23 11:33 | ED Integumentary General ---
General Chief Complaint: Allergic Reaction Stated Complaint: ALLERGIC REACTION Nursing Triage Note: PT STATES SHE STARTED A NEW MEDICATION, AMLODAPINE, AND HAS DEVELOPED A FACIAL RASH, VERBALIZED HER TONGUE FEELS ENLARGED AND IS REPORTING SHALLOW FEELING RESPIRATIONS. SYMPTOMS BEGAM IN THE SECOND WEEK OF AUGUST, PRESENTING TODAY BECAUSE SYMPTOMS WORSENED PER PT Source: patient, spouse Exam Limitations: no limitations History of Present Illness Date Seen by Provider: Dec 23, 2017 Time Seen by Provider: 11:10 Initial Comments Patient present to ER by private conveyance with her and a chief complaint that since middle of August she started having a rash on her face and feeling like her throat was closing off. She's had no problems breathing or stridor or wheezing. She says last couple days got worse. Most recently she was seen by her certified ophthalmic technician and he started her on a steroid cream but she has not picked up and started using it yet. She does use Alavert occasionally and Pepcid occasionally. 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 She thinks that since she started amlodipine within a few weeks prior to her rash starting up that the amlodipine is to cause and her certified ophthalmic technician has told her to stop it so she stopped using it yesterday. She is just worried that this might progress and get worse so she decided to come on at the ER to be checked out. She has an appointment next week on Thursday with Dr. Echeverria and next week on Thursday she is seeing the certified ophthalmic technician again for her liver ultrasound. Allergies and Home Medications Allergies Coded Allergies: Sulfa (Sulfonamide Antibiotics) (Verified Allergy, Unknown, 05/16/05) latex (Verified Allergy, Unknown, 05/16/05) Home Medications Aspirin 81 Mg Tablet.dr, 81 MG PO DAILY, (Reported) Azathioprine 50 Mg Tablet, 75 MG PO DAILY, (Reported) TAKES 1 & 1/2 OF A (50 MG) TABLET Bimatoprost 2.5 Ml Drops, 1 DROP OU HS, (Reported) Clonazepam 0.5 Mg Tablet, 1 MG PO HS, (Reported) TAKES 2 (0.5MG) TABLETS Clopidogrel Bisulfate 75 Mg Tablet, 75 MG PO DAILY, (Reported) Denosumab 60 Mg/1 Ml Disp.syrin, 60 MG SQ EVERY 6 MONTHS, (Reported) Diphenoxylate HCl/Atropine 1 Each Tablet, 1 TAB PO HS PRN for DIARRHEA, ( Reported) Famotidine 20 Mg Tablet, 20 MG PO HS PRN for HEARTBURN, (Reported) Fluoxetine HCl 40 Mg Capsule, 40 MG PO DAILY, (Reported) Folic Acid 1 Mg Tablet, 1 MG PO 1200, (Reported) Losartan Potassium 100 Mg Tablet, 100 MG PO HS, (Reported) Mesalamine 1.2 Gm Tablet.dr, 1.2 GM PO HS, (Reported) Echo-3/Dha/Epa/Fish Oil 1 Each Capsule.dr, 1,400 MG PO 1700, (Reported) Pramipexole Di-HCl 0.5 Mg Tablet, 0.5 MG PO HS, (Reported) Pravastatin Sodium 80 Mg Tablet, 80 MG PO HS, (Reported) Timolol Maleate 5 Ml Drops, 1 DROP OU BID, (Reported) Patient Home Medication List Home Medication List Reviewed: Yes Review of Systems Review of Systems Constitutional: No chills, No diaphoresis EENTM: No ear pain, No eye pain Respiratory: No cough, No short of breath, No stridor, No wheezing Cardiovascular: No chest pain, No palpitations Gastrointestinal: No abdominal pain, No nausea, No vomiting Past Tqqwpkf-Jiauym-Pldyer Hx Patient Social History Alcohol Use: Denies Use Recreational Drug Use: No Smoking Status: Never a Smoker 2nd Hand Smoke Exposure: No Recent Foreign Travel: No Contact w/Someone Who Travel: No Recent Infectious Disease Expo: No Recent Hopitalizations: No (2005. strep, hysterectomy, lumpectomy, collapsed at work 15 years ago) Immunizations Up To Date Tetanus Booster (TDap): Unknown Date of Pneumonia Vaccine: Jan 11, 2017 Seasonal Allergies Seasonal Allergies: No Past Medical History Surgeries: Yes Breast, Hysterectomy, Lumpectomy Respiratory: No Currently Using CPAP: No Currently Using BIPAP: No Cardiac: Yes (STENT PLACEMENT) Atrial Fibrillation, Hypertension Neurological: Yes (chronic fatigue syndrome) TIA : No Reproductive Disorders: No Female Reproductive Disorders: Denies Sexually Transmitted Disease: No Genitourinary: No Gastrointestinal: Yes Colitis, Gastroesophageal Reflux, Liver Disease/Jaundice, Hemorrhoids Musculoskeletal: Yes Arthritis Endocrine: Yes (DIET CONTROLLED DM ) Diabetes, Non-Insulin dep, Lupus HEENT: Yes Cataract, Glaucoma Loss of Vision: Denies Hearing Impairment: Denies Cancer: No Psychosocial: Yes Anxiety Integumentary: No Blood Disorders: No Adverse Reaction/Blood Tranf: No Family Medical History Hypertension Physical Exam Vital Signs Vital Signs - First Documented 12/23/17 11:03 Temp 97.9 Pulse 64 Resp 20 B/P (MAP) 143/72 (95) Pulse Ox 96 O2 Delivery Room Air Capillary Refill : Less Than 3 Seconds General Appearance: WD/WN, no apparent distress HEENT: PERRL/EOMI, pharynx normal Neck: non-tender, full range of motion, supple, normal inspection Cardiovascular: normal peripheral pulses, regular rate, rhythm, no edema Respiratory: chest non-tender, lungs clear, normal breath sounds, no respiratory distress, no accessory muscle use Neurologic/Psychiatric: alert, normal mood/affect, oriented x 3 Skin: other (nasolabial rash in the folds under the lower bilateral eyelid, erythematous mildly scaling plaque) Progress/Results/Core Measures Results/Orders Vital Signs/I&O 12/23/17 11:03 Temp 97.9 Pulse 64 Resp 20 B/P (MAP) 143/72 (95) Pulse Ox 96 O2 Delivery Room Air Blood Pressure Mean: 95 Progress Progress Note : Time: 11:33 Progress Note We have assured her done counseling and I recommended she go and excelsior picker the steroid cream and use it as prescribed. Discontinue the use amlodipine and just to help placate her concerns for angioedema since August we'll encourage for the next 5-7 days that she take Pepcid twice a day and Alavert twice a day. She already has these medicines at home. Departure Impression Primary Impression: Rash of face Disposition: HOME, SELF-CARE Condition: Stable Departure-Patient Inst. Decision time for Depature: 11:34 Referrals: CHRISTINE ECHEVERRIA MD (PCP/Family) Primary Care Physician Patient Instructions: Skin Rash (DC) Add. Discharge Instructions: Start taking your Pepcid one tablet twice a day for the next 7 days. Start taking your Alavert one tablet twice a day for the next 7 days. Keep your follow-up appointments with your certified ophthalmic technician and primary care provider next week. Return to the ER if you have difficulty breathing. All discharge instructions reviewed with patient and/or family. Voiced understanding. ZENAIDA NUR Dec 23, 2017 11:33
[2017-12-23 11:52] VITALS: BP 143/72
== END 2017-12-23 11:50 | disposition home or self-care (01) ==
LOC: EDUNIT# 10:52 → ER 10:53
DX: R21 Rash and other nonspecific skin eruption (principal); I48.91 Unspecified atrial fibrillation; I10 Essential (primary) hypertension; E11.65 Type 2 diabetes mellitus with hyperglycemia; F41.9 Anxiety disorder, unspecified; K21.9 Gastro-esophageal reflux disease without esophagitis; Z87.19 Personal history of other diseases of the digestive system; Z86.73 Personal history of transient ischemic attack (TIA), and cerebral infarction without residual deficits; Z88.2 Allergy status to sulfonamides; Z91.040 Latex allergy status; Z79.82 Long term (current) use of aspirin; Z79.02 Long term (current) use of antithrombotics/antiplatelets; Z90.710 Acquired absence of both cervix and uterus; Z95.5 Presence of coronary angioplasty implant and graft
CPT/HCPCS: 99282

== ENCOUNTER 2018-04-05 12:30 | Observation (INO) | payer MEDICARE ==
[2018-04-05] VITALS (8 sets, daily range): BP systolic 119–166; BP diastolic 49–93
[~2018-04-05] VITALS: Ht 154.9 cm; Wt 73.1 kg
--- NOTE | 2018-04-05 12:49 | ED Neurological Problem ---
General Stated Complaint: L SIDE WEAKNESS/NUMBNESS Source: patient Exam Limitations: no limitations (TEENA DURÁN APRN) History of Present Illness Date Seen by Provider: Apr 05, 2018 Time Seen by Provider: 12:46 Initial Comments To ER complaint by her with reports of right sided arm and leg weakness. She has a history of stroke in November 2016 and May 2017. During the May 2017 stroke she had right arm and leg weakness. These were her lasting deficits. However these deficits did improve with physical therapy and rehabilitation. This morning she awakened at 9 AM feeling fine and normal per her baseline. Shortly thereafter between 9 and 10 (exact time unknown) she developed shaking of the right arm and right leg and the shaking has resolved but now she feels weakness in the right arm and right leg more than typical. She denies any other current illnesses aside from a runny nose. Timing/Duration: 1-3 hours Severity: moderate Associated Symptoms: nausea/vomiting (TEENA DURÁN APRN) Allergies and Home Medications Allergies Coded Allergies: Sulfa (Sulfonamide Antibiotics) (Verified Allergy, Unknown, 04/05/18) latex (Verified Allergy, Unknown, 04/05/18) Home Medications Aspirin 81 Mg Tablet.dr, 81 MG PO DAILY, (Reported) Azathioprine 50 Mg Tablet, 75 MG PO DAILY, (Reported) TAKES 1 & 1/2 OF A (50 MG) TABLET Bimatoprost 2.5 Ml Drops, 1 DROP OU HS, (Reported) Clonazepam 0.5 Mg Tablet, 1 MG PO HS, (Reported) TAKES 2 (0.5MG) TABLETS Clopidogrel Bisulfate 75 Mg Tablet, 75 MG PO DAILY, (Reported) Denosumab 60 Mg/1 Ml Disp.syrin, 60 MG SQ EVERY 6 MONTHS, (Reported) Diphenoxylate HCl/Atropine 1 Each Tablet, 1 TAB PO HS PRN for DIARRHEA, ( Reported) Famotidine 20 Mg Tablet, 20 MG PO HS PRN for HEARTBURN, (Reported) Fluoxetine HCl 40 Mg Capsule, 40 MG PO DAILY, (Reported) Folic Acid 1 Mg Tablet, 1 MG PO 1200, (Reported) Losartan Potassium 100 Mg Tablet, 100 MG PO HS, (Reported) Mesalamine 1.2 Gm Tablet.dr, 1.2 GM PO HS, (Reported) [place]-3/Dha/Epa/Fish Oil 1 Each Capsule.dr, 1,400 MG PO 1700, (Reported) Pramipexole Di-HCl 0.5 Mg Tablet, 0.5 MG PO HS, (Reported) Pravastatin Sodium 80 Mg Tablet, 80 MG PO HS, (Reported) Timolol Maleate 5 Ml Drops, 1 DROP OU BID, (Reported) Patient Home Medication List Home Medication List Reviewed: Yes (TEENA DURÁN APRN) Review of Systems Review of Systems Constitutional: see HPI Eyes: No Symptoms Reported Ears, Nose, Mouth, Throat: no symptoms reported Respiratory: no symptoms reported Cardiovascular: no symptoms reported Genitourinary: no symptoms reported Musculoskeletal: see HPI Skin: no symptoms reported Psychiatric/Neurological: See HPI Endocrine: No Symptoms Reported Hematologic/Lymphatic: No Symptoms Reported (TEENA DURÁN APRN) Past Ozqxojh-Rgjwvq-Uemjjv Hx Patient Social History 2nd Hand Smoke Exposure: No Recent Foreign Travel: No Contact w/Someone Who Travel: No Recent Hopitalizations: No (2005. strep, hysterectomy, lumpectomy, collapsed at work 15 years ago) (TEENA DURÁN APRN) Immunizations Up To Date Tetanus Booster (TDap): Unknown Date of Pneumonia Vaccine: Jan 11, 2017 (TEENA DURÁN APRN) Seasonal Allergies Seasonal Allergies: No (TEENA DURÁN APRN) Past Medical History Surgeries: Yes Breast, Hysterectomy, Lumpectomy Respiratory: No Currently Using CPAP: No Currently Using BIPAP: No Cardiac: Yes (STENT PLACEMENT) Atrial Fibrillation, Hypertension Neurological: Yes (chronic fatigue syndrome) TIA Reproductive Disorders: No Female Reproductive Disorders: Denies Sexually Transmitted Disease: No Genitourinary: No Gastrointestinal: Yes Colitis, Gastroesophageal Reflux, Liver Disease/Jaundice, Hemorrhoids Musculoskeletal: Yes Arthritis Endocrine: Yes (DIET CONTROLLED DM ) Diabetes, Non-Insulin dep, Lupus HEENT: Yes Cataract, Glaucoma Loss of Vision: Denies Hearing Impairment: Denies Cancer: No Psychosocial: Yes Anxiety Integumentary: No Blood Disorders: No Adverse Reaction/Blood Tranf: No (TEENA DURÁN APRN) Family Medical History Hypertension (TEENA DURÁN APRN) Physical Exam Vital Signs Capillary Refill : (TEENA DURÁN APRN) Height, Weight, BMI Height: 5'1.00" Weight: 150lbs. 3.0oz. [id number]; 28.0 BMI Method:Stated General Appearance: WD/WN, no apparent distress HEENT: PERRL/EOMI, normal ENT inspection Neck: non-tender, full range of motion Respiratory: no respiratory distress, no accessory muscle use Cardiovascular: regular rate, rhythm, no murmur Gastrointestinal: normal bowel sounds, soft Extremities: normal range of motion, non-tender Neurologic/Psychiatric: alert, normal mood/affect, oriented x 3 Crainal Nerves: normal hearing, normal speech, PERRL Motor/Sensory: sensory deficit, weak motor strength RLE Skin: normal color, warm/dry (TEENA DURÁN APRN) Stroke Onset of Symptoms Date of Onset of Symptoms: Apr 05, 2018 Time of Symptom Onset: 12:49 Onset of Symptoms: Yes Symptoms onset unknown: Yes (TEENA DURÁN APRN) NIH Stroke Scale Assessment Select: Initial Level of Consciousness: 0=Alert (0), Level of Consciousness- Questions: 0=Answers both month/age (0), LOC Commands: 0=Performs both tasks (0) , Gaze: Normal (0), Visual Tang: 0=No visual loss (0), Facial Movement ( Facial Paresis): 0=Normal symmetrical mnt (0), Motor Function-Arms Right: 0=No drift (0), Motor Function-Arms Left: 0=No drift (0), Motor Function-Legs Right: 1=Drift (1), Motor Function-Legs Left: 0=No drift (0), Limb Ataxia: 1=Present in one limb (1), Sensory: 1=Mild to Moderate loss (1), Best Language: 0=No aphasia (0), Dysarthria: 0=Normal (0), Extinction & Inattention: 0=No abnormality (0), Total: 3 Stroke Thrombolytic Exclusion Age 18 or Over: Yes Acute intenal hemorrhage: No History of CVA: No Uncontrolled Coagulation Defec: Yes Intracranial Hemorrhage: No Severe Hypertension: Yes GI or Bleed: No Subarachnoid Hemorrhage: No Intracranial Neoplasm/Aneurysm: No Oral Anticoagulants: No Surgery or Trauma: No Puncture of Non-Compressible V: No Recent CPR: No Diabetic Hemorrhagic Retinopat: No Organ Biopsy: No Recent Obstetric Delivery: No Glucose: No Significant Hepatic Dysfunctio: No NIH Stoke Scale >22: No Bacterial Endocarditis: No Pericarditis: No Improving Symptoms: No Platelets: No TPA Contraindication: Yes (TEENA DURÁN APRN) Progress/Results/Core Measures Results/Orders Lab Results Laboratory Tests Test 04/05/18 13:00 04/05/18 13:07 04/05/18 13:45 Range/Units Prothrombin Time 11.8 L 12.2-14.7 SEC INR Comment 0.9 0.8-1.4 Activated Partial Thromboplast Time 25 24-35 SEC D-Dimer 0.39 0.00-0.49 UG/ML White Blood Count 6.5 4.3-11.0 10^3/uL Red Blood Count 4.48 4.35-5.85 10^6/uL Hemoglobin 14.5 11.5-16.0 G/DL Hematocrit 42 35-52 % Mean Corpuscular Volume 93 80-99 FL Mean Corpuscular Hemoglobin 32 25-34 PG Mean Corpuscular Hemoglobin Concent 35 32-36 G/DL Red Cell Distribution Width 13.2 10.0-14.5 % Platelet Count 191 130-400 10^3/uL Mean Platelet Volume 8.7 7.4-10.4 FL Neutrophils (%) (Auto) 69 42-75 % Lymphocytes (%) (Auto) 21 12-44 % Monocytes (%) (Auto) 9 0-12 % Eosinophils (%) (Auto) 1 0-10 % Basophils (%) (Auto) 1 0-10 % Neutrophils # (Auto) 4.5 1.8-7.8 X 10^3 Lymphocytes # (Auto) 1.3 1.0-4.0 X 10^3 Monocytes # (Auto) 0.6 0.0-1.0 X 10^3 Eosinophils # (Auto) 0.1 0.0-0.3 10^3/uL Basophils # (Auto) 0.0 0.0-0.1 10^3/uL Sodium Level 136 135-145 MMOL/L Potassium Level 4.2 3.6-5.0 MMOL/L Chloride Level 107 98-107 MMOL/L Carbon Dioxide Level 19 L 21-32 MMOL/L Anion Gap 10 5-14 MMOL/L Blood Urea Nitrogen 12 7-18 MG/DL Creatinine 0.87 0.60-1.30 MG/DL Estimat Glomerular Filtration Rate > 60 BUN/Creatinine Ratio 14 Glucose Level 98 70-105 MG/DL Calcium Level 8.8 8.5-10.1 MG/DL Corrected Calcium 8.6 8.5-10.1 MG/DL Total Bilirubin 0.4 0.1-1.0 MG/DL Aspartate Amino Transf (AST/SGOT) 47 H 5-34 U/L Alanine Aminotransferase (ALT/SGPT) 31 0-55 U/L Alkaline Phosphatase 42 40-136 U/L Troponin I < 0.30 <0.30 NG/ML Total Protein 7.1 6.4-8.2 GM/DL Albumin 4.2 3.2-4.5 GM/DL Urine Color YELLOW Urine Clarity CLEAR Urine pH 8 5-9 Urine Specific [place] 1.010 L 1.016-1.022 Urine Protein NEGATIVE NEGATIVE Urine Glucose (UA) NEGATIVE NEGATIVE Urine Ketones NEGATIVE NEGATIVE Urine Nitrite NEGATIVE NEGATIVE Urine Bilirubin NEGATIVE NEGATIVE Urine Urobilinogen NORMAL NORMAL MG/DL Urine Leukocyte Esterase NEGATIVE NEGATIVE Urine RBC (Auto) NEGATIVE NEGATIVE Urine RBC NONE /HPF Urine WBC RARE /HPF Urine Squamous Epithelial Cells 0-2 /HPF Urine Crystals NONE /LPF Urine Bacteria NEGATIVE /HPF Urine Casts NONE /LPF Urine Mucus NEGATIVE /LPF Urine Culture Indicated NO (PARI RAYA MD) Medications Given in ED Current Medications Medications Dose Ordered Sig/Bety Route Start Time Stop Time Status Last Admin Dose Admin Carvedilol 3.125 mg ONCE ONCE PO 04/05/18 13:00 04/05/18 13:01 DC 04/05/18 13:53 3.125 MG (PARI RAYA MD) Progress Progress Note : Progress Note Seen and evaluated with Teena Durán APRN. I agree with above except as indicated. I have reviewed and agree with the plan of care. I have reviewed patient's past medical history including MRI. We will do a stroke workup. Continue to monitor patient. 1430: Choked workup and labs essentially negative. We are evaluating blood pressure to see if that is a part of the issue. Patient was given her home med dosing. Monitor patient. (PARI RAYA MD) Initial ECG Impression Date: Apr 05, 2018 Initial ECG Impression Time: 13:40 Initial ECG Rate: 56 Initial ECG Rhythm: Normal Sinus Initial ECG Impression: Normal Comment Sinus rhythm with normal axis. No evidence of ST elevation IA. Similar to previous. Interpreted by me. (PARI RAYA MD) Departure Communication (Admissions) Time/Spoke to Admitting Phy: 18:02 Patient's symptoms did transiently improve before she developed "tightness in her body" and flushing. We will admit for observation.Discussed with Dr Truong and she agrees with observation admission. 1424-I discussed the case with Dr. Raya who has also examined the patient. Symptoms may be due to hypertensive urgency. Blood pressure is still 175/115. Heart rate 80s to 90s sinus without ectopy. She still reports right-sided weakness. I'll give her her home dose of olmesartan since she did not have that or her carvedilol this morning. 1612-blood pressure down to 149/71. Alert and oriented and visiting with family at the bedside. States she is overall feeling better. (TEENA DURÁN APRN) Impression Primary Impression: Right sided weakness Additional Impressions: History of CVA (cerebrovascular accident) Hypertensive urgency Disposition: ADMITTED INPATIENT Condition: Stable Admissions Decision to Admit Reason: Admit from ER (General) Decision to Admit/Date: Apr 05, 2018 Time/Decision to Admit Time: 17:30 (TEENA DURÁN APRN) Departure-Patient Inst. Decision time for Depature: 14:05 (TEENA DURÁN APRN) Referrals: CHRISTINE LUNDY MD (PCP/Family) Primary Care Physician Patient Instructions: High Blood Pressure Emergencies Add. Discharge Instructions: 1. Return to ER for any concerns 2. Follow-up with your doctor next week 3. TEENA DURÁN APRN Apr 05, 2018 12:49 PARI RAYA MD Apr 05, 2018 14:33
[2018-04-05] MEDS ORDERED: CARVEDILOL 3.125 MG (COREG) TABLET PO ONE (13:00)
[2018-04-05 13:20] LABS: BASOPHILS % (AUTO) 1 % (0-10); EOSINOPHILS # (AUTO) 0.1 10^3/uL (0.0-0.3); EOSINOPHILS % (AUTO) 1 % (0-10); HEMATOCRIT 42 % (35-52); HEMOGLOBIN 14.5 G/DL (11.5-16.0); LYMPHOCYTES # (AUTO) 1.3 X 10^3 (1.0-4.0); LYMPHOCYTES % (AUTO) 21 % (12-44); MEAN CORPUSCULAR HEMOGLOBIN 32 PG (25-34); MEAN CORPUSCULAR HGB CONC 35 G/DL (32-36); MEAN CORPUSCULAR VOLUME 93 FL (80-99); MEAN PLATELET VOLUME 8.7 FL (7.4-10.4); MONOCYTES # (AUTO) 0.6 X 10^3 (0.0-1.0); MONOCYTES % (AUTO) 9 % (0-12); NEUTROPHILS # (AUTO) 4.5 X 10^3 (1.8-7.8); NEUTROPHILS % (AUTO) 69 % (42-75); PLATELET COUNT 191 10^3/uL (130-400); RED BLOOD COUNT 4.48 10^6/uL (4.35-5.85); RED CELL DISTRIBUTION WIDTH 13.2 % (10.0-14.5); WHITE BLOOD COUNT 6.5 10^3/uL (4.3-11.0)
--- NOTE | 2018-04-05 13:20 | Diagnostic Imaging Report ---
INDICATION: Left-sided weakness. TIME OF EXAM: 1:11 PM COMPARISON: Correlation is made with prior chest from 05/24/2017. FINDINGS: Cardiac monitoring device overlies the left heart. Lungs are clear. No infiltrate or failure is detected. No effusion or pneumothorax is identified. IMPRESSION: No acute cardiopulmonary process is detected. Dictated by: Dictated on workstation # [id number]
[2018-04-05 13:31] LABS: FIBRIN DEGRADATION PRODUCTS 0.39 UG/ML (0.00-0.49); INR 0.9 (0.8-1.4); PROTHROMBIN TIME PATIENT 11.8 SEC (12.2-14.7)
--- NOTE | 2018-04-05 13:33 | Diagnostic Imaging Report ---
PROCEDURE: CT head wo r/o stroke. TECHNIQUE: Multiple contiguous axial images were obtained through the brain without the use of intravenous contrast. INDICATION: Left-sided weakness and numbness. Comparison is made with prior head CT from 10/07/2017. The ventricular size and sulcal pattern appear stable. Small areas of encephalomalacia right valentino radiata and right occipital lobe appears similar to prior exam and consistent with prior infarct. No midline shift or hemorrhage is detected. Cisterns are patent. Visualized paranasal sinuses are clear. IMPRESSION: Stable chronic changes when compared with exam from 10/07/2017. No acute features detected. Results were called to the emergency department prior to this dictation. Dictated by: Dictated on workstation # [id number]
[2018-04-05 13:34] LABS: ALANINE AMINOTRANSFERASE 31 U/L (0-55); ALBUMIN 4.2 GM/DL (3.2-4.5); ALKALINE PHOSPHATASE 42 U/L (40-136); BILIRUBIN,TOTAL 0.4 MG/DL (0.1-1.0); BUN/CREATININE RATIO 14; CALCIUM 8.8 MG/DL (8.5-10.1); CARBON DIOXIDE 19 MMOL/L (21-32); CHLORIDE 107 MMOL/L (98-107); CREATININE SERUM 0.87 MG/DL (0.60-1.30); GFR ESTIMATED > 60; GLUCOSE 98 MG/DL (70-105); POTASSIUM 4.2 MMOL/L (3.6-5.0); SODIUM 136 MMOL/L (135-145); TOTAL PROTEIN 7.1 GM/DL (6.4-8.2)
[2018-04-05 13:55] LABS: BILIRUBIN,URINE NEGATIVE (NEGATIVE); CLARITY,URINE CLEAR; COLOR,URINE YELLOW; GLUCOSE, URINE (UA) NEGATIVE (NEGATIVE); KETONES,URINE NEGATIVE (NEGATIVE); LEUKOCYTE ESTERASE ,URINE NEGATIVE (NEGATIVE); NITRITE,URINE NEGATIVE (NEGATIVE); PH,URINE 8 (5-9); PROTEIN,URINE NEGATIVE (NEGATIVE); UROBILINOGEN,URINE NORMAL (NORMAL)
[2018-04-05 14:02] LABS: BACTERIA,URINE NEGATIVE /HPF; SQUAMOUS EPITHELIAL CELL,UR 0-2 /HPF; WBC,URINE RARE /HPF
[2018-04-05] MEDS ORDERED: OLMESARTAN 20 MG (BENICAR) TABLET PO ONE (14:15)
[2018-04-05] MEDS ORDERED: cloNIDine 0.1 MG (CATAPRES) TAB PO ONE (15:15)
[2018-04-05] MEDS ORDERED: hydrALAZINE (APESOLINE) 20 MG/ML VIAL IV ONE (15:15)
[2018-04-05] MEDS ORDERED: KETOROLAC 30 MG/ML VIAL IVP ONE (16:15)
[2018-04-05] MEDS ORDERED: FAMOTIDINE 20MG/2ML IV (PEPCID) IV STA (16:34)
[2018-04-05] MEDS ORDERED: methylPREDNISolone 125 MG (Solu-MEDROL) VIAL IV STA (16:34)
[2018-04-05] MEDS ORDERED: diphenhydrAMINE 25 MG TAB (BENADRYL) PO ONE (16:45)
--- OUTSIDE RECORDS SUMMARY | 2018-04-05 17:18 | XMS REPORT | Clinical Summary ---
Author Author [facility] Organization [facility] Address Unknown Phone Unavailable Care Team Providers Care Fur Tinter Name Role Phone PCP Unavailable Allergies Not on File Current Medications Not on file Active Problems Not on file Social History Tobacco Use Types Packs/Day Years Used Date Never Assessed Sex Assigned at Date Recorded Not on file Last Filed Vital Signs Not on file Plan of Treatment Not on file Results Not on filefrom Last 3 Months
--- OUTSIDE RECORDS SUMMARY | 2018-04-05 17:19 | XMS REPORT | Clinical Summary ---
Author Author [facility] Organization [facility] Address Unknown Phone Unavailable Care Team Providers Care Sausage Stringer Name Role Phone Maria Luisa Echeverria MD PCP Source Comments Some departments are not documenting in the electronic medical record. If you do not see the information that you expected, contact Release of Information in the Health Information Management department at [phone] for further assistance in locating additional records.[facility] Allergies Comments Active Allergy Reactions Severity Noted Date Latex ANAPHYLAXIS High 09/16/2017 Sulfa (Sulfonamide RASH Medium 09/16/2017 Antibiotics) Medications End Date Status Medication Sig Dispensed Refills Start Date Active clonazePAM (KLONOPIN) 0.5 Take 0.5 mg 0 mg tablet by mouth twice daily. Active amLODIPine (NORVASC) 5 mg Take 5 mg by 0 tablet mouth daily. Active fluoxetine(+) (PROZAC) 40 Take 40 mg by 0 mg capsule mouth daily. Active folic acid (FOLVITE) 1 mg Take 1 mg by 0 tablet mouth daily. Active azaTHIOprine (IMURAN) 50 Take 50 mg by 0 mg tabletIndications: mouth daily. Take 1.5 daily Active ergocalciferol (VITAMIN Take 1 0 D-2) 50,000 unit capsule capsule by mouth every 7 days. Active clopiDOGrel (PLAVIX) 75 Take 75 mg by 0 mg tablet mouth daily. Active blood-glucose meter (ONE Use as 0 TOUCH ULTRA BONUS PACK directed. [facility] [place]) Active pravastatin (PRAVACHOL) Take 80 mg by 0 80 mg tablet mouth at bedtime daily. Active diphenoxylate/atropine Take 1 tablet 0 (LOMOTIL) 2.5/0.025 mg by mouth four tablet times daily as needed for Diarrhea. Active losartan(+) (COZAAR) 100 Take 100 mg 0 mg tablet by mouth daily. Active pramipexole (MIRAPEX) 0.5 Take 0.5 mg 0 mg tablet by mouth three times daily. Active timolol maleate 1 drop twice 0 (TIMOPTIC) 0.5 % daily. ophthalmic drops Active Bimatoprost (LUMIGAN) Place into 0 0.01 % drop or around eye(s). Active denosumab (PROLIA) 60 Inject 60 mg 0 mg/mL syrg under the skin once. Active Problems Problem Noted Date [...] or Plavix. There is no evidence for correction dual antiplatelet therapy for stroke - Agree with cardiology evaluation and recommend to continue with Linq, implantable teletypesetter monitor - Recommend Lumbar puncture to evaluate for any autoimmune or inflammatory process. Would check CSF cell count, glucose, and protein. Could on additional test if results are abnormal. If there is evidence of an autoimmune process she will need to follow up with her repair order clerk. - Consider repeat CTA neck to evaluate area of stenosis to determine if it has progressed further and/or to see if may have been an etiology other than athero - ongoing secondary stroke risk factor modification o Goal LDL less than 100 o Goal Hgb A1C less than 7 o Goal SBP less than 140 - Stroke education provided to patient and Social History Date Tobacco Use Types Packs/Day Years Used Never Smoker Smokeless Tobacco: Never Used Alcohol Use Drinks/Week oz/Week Comments No Sex Assigned at Date Recorded Not on file Industry Job Start Date Occupation Not on file Not on file Not on file Travel End Travel History Travel Start No recent travel history available. Last Filed Vital Signs Time Taken Vital Sign Reading 09/16/2017 11:45 AM CDT Blood Pressure 165/76 09/16/2017 11:45 AM CDT Pulse 61 - Temperature - - Respiratory Rate - - Oxygen Saturation - - Inhaled Oxygen - Concentration 09/16/2017 11:45 AM CDT Weight 72.6 kg (160 lb) 09/16/2017 11:45 AM CDT Height 154.9 cm (5' 1") 09/16/2017 11:45 AM CDT Body Mass Index 30.23 Plan of Treatment Health Maintenance Due Date Last Done Comments HEPATITIS C SCREENING 1945 PHYSICAL (COMPREHENSIVE) 11/15/1954 EXAM DTAP/TDAP VACCINES (1 - 11/15/1965 Tdap) BREAST CANCER SCREENING 1987 COLORECTAL CANCER 11/15/1997 SCREENING SHINGLES RECOMBINANT 11/15/1997 VACCINE (1 of 2) OSTEOPOROSIS 11/15/2012 SCREENING/MONITORING PNEUMONIA (PCV13/PPSV23) 11/15/2012 VACCINES (1 of 2 - PCV13) INFLUENZA VACCINE 11/11/2017 Results Not on filefrom Last 3 Months Insurance Payer Benefit Subscriber ID Type Phone Address Plan / Group MEDICARE MEDICARE xxxxxxxxxx Medicare PART A AND B BCBS [place] [employer]BS xxxxxxxxxxxx Medicare SUPPLEMENT Advance Directives Patient has advance care planning documents on file. For more information, please contact: [facility] [address] [place] [address]
--- OUTSIDE RECORDS SUMMARY | 2018-04-05 17:23 | XMS REPORT | CCD ---
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 Name Role Phone PP Unavailable CCM Unavailable Summary Purpose Interface Exchange Insurance Providers Payer name Policy type / Coverage type Covered green party ID Effective Begin Date Effective End Date WPS Medicare Part B Medicare Part B [id number] 2017 Unknown [facility] Medicare Part B [id number] Unknown Family history Mother Diagnosis Age At [...] Unknown 5 10/11/[address]: 772705889 Never smoker 10/11/[address]: 361429703 Never drinks alcohol 10/11/2014 Allergies, Adverse Reactions, Alerts Substance Reaction Codes Entered Date Inactivated Date Status Latex Unknown 10/11/2014 No Inactive Date Active SULFA(SULFONAMIDE ANTIBIOTICS) Unknown 10/11/2014 No Inactive Date Active THIAZIDE-RELATED- BENZHYDRAZIDES Unknown 10/11/2014 No Inactive Date Active Past Medical History Illness Codes Condition Status Onset Date Resolved Date Encounter for immunization ICD-9: V03.82 ICD-10: Z23 Active 02/19/2016 Unknown Essential (primary) hypertension ICD-9: 401.1 ICD-10: I10 Active 08/25/2017 Unknown Muscle weakness (generalized) ICD-9: 728.87 ICD-10: M62.81 Active 12/05/2016 Unknown Type 2 diabetes mellitus without complications ICD-9: 250.00 ICD-10: E11.9 Active 01/22/2016 Unknown Encounter for general adult medical examination with abnormal findings ICD-9: V70.0 ICD-10: Z00.01 Active 08/21/2016 Unknown 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 artery ICD-9: 434.10 ICD-10: I66.01 Active 06/17/2017 Unknown Cerebral infarction, unspecified ICD-9: 434.91 ICD-10: I63.9 Active 12/05/2016 Unknown Essential (primary) hypertension ICD-9: 401.9 ICD-10: I10 Active 10/10/2014 Unknown Mixed hyperlipidemia ICD-9: 272.4 ICD-10: E78.2 Active 05/20/2016 Unknown Allergic rhinitis due to pollen ICD-9: 477.0 ICD-10: J30.1 Active 12/05/2016 Unknown Gastro-esophageal reflux disease without esophagitis ICD-9: 530.81 ICD-10: K21.9 Active 12/05/2016 Unknown Abnormal weight gain ICD-9: 783.1 ICD-10: [...] Problems Condition Codes Effective Dates Condition Status Encounter for immunization ICD-9: V03.82 ICD-10: Z23 02/19/2016 Active Essential (primary) hypertension ICD-9: 401.1 ICD-10: I10 08/25/2017 Active Muscle weakness (generalized) ICD-9: 728.87 ICD-10: M62.81 12/05/2016 Active Type 2 diabetes mellitus without complications ICD-9: 250.00 ICD-10: E11.9 01/22/2016 Active Encounter for general adult medical examination with abnormal findings ICD-9: V70.0 ICD-10: Z00.01 08/21/2016 Active 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 artery ICD-9: 434.10 ICD-10: I66.01 06/17/2017 Active Cerebral infarction, unspecified ICD-9: 434.91 ICD-10: I63.9 12/05/2016 Active Essential (primary) hypertension ICD-9: 401.9 ICD-10: I10 10/10/2014 Active Mixed hyperlipidemia ICD-9: 272.4 ICD-10: E78.2 05/20/2016 Active Allergic rhinitis due to pollen ICD-9: 477.0 ICD-10: J30.1 12/05/2016 Active Gastro-esophageal reflux disease without esophagitis ICD-9: 530.81 ICD-10: K21.9 12/05/2016 Active Abnormal weight gain ICD-9: 783.1 ICD-10: [...] Start Date Stop Date Status Fill Instructions Benicar 40 mg tablet RxNorm: 460386 1 Tablet(s) PO daily 201707/23/2018 Active This replaces losartan Benicar 40 mg tablet RxNorm: 159420 1 Tablet(s) PO daily 201702/23/2018 Inactive This replaces losartan clonazepam 0.5 mg tablet RxNorm: 844879 Tablet(s) TAKE 2 TABLETS BY MOUTH AT BEDTIME NEEDED 01/20/2018 04/19/2018 Active Coreg 3.125 mg tablet RxNorm: 994659 1/2 Tablet(s) PO BID 201704/27/2018 Active Mirapex 0.5 mg tablet RxNorm: 418731 TAKE ONE TABLET BY MOUTH EVERY NIGHT AT BEDTIME 12/21/2017 05/19/2018 Active Plavix 75 mg tablet RxNorm: 237125 TAKE ONE TABLET BY MOUTH DAILY 12/11/2017 03/05/2019 Active folic acid 1 mg tablet RxNorm: 753510 TAKE ONE TABLET BY MOUTH DAILY 12/11/2017 12/05/2018 Active Aspirin Low Dose 81 mg tablet,delayed release RxNorm: 497397 TAKE ONE TABLET BY MOUTH DAILY 11/24/2017 12/28/2017 Inactive Request already responded to by other means (e.g. phone or fax) Aspirin Low Dose 81 mg tablet,delayed release RxNorm: 391813 1 Tablet(s) PO daily 11/18/2017 11/17/2017 Inactive Aspirin Low Dose 81 mg tablet,delayed release RxNorm: 564922 1 Tablet(s) PO daily 11/18/2017 11/23/2017 Inactive clonazepam 0.5 mg tablet RxNorm: 414842 Tablet(s) TAKE 2 TABLETS BY MOUTH AT BEDTIME NEEDED 10/23/2017 01/19/2018 Inactive Lomotil 2.5 mg-0.025 mg tablet RxNorm: 8720904 1 Tablet(s) PO daily as needed 09/28/2017 03/26/2018 Active pravastatin 80 mg tablet RxNorm: 557500 TAKE ONE TABLET BY MOUTH EVERY EVENING 08/19/2017 11/11/2018 Active clonazepam 0.5 mg tablet RxNorm: 762038 Tablet(s) TAKE 2 TABLETS BY MOUTH AT BEDTIME NEEDED 07/24/2017 10/20/2017 Inactive Mirapex 0.5 mg tablet RxNorm: 899725 TAKE ONE TABLET BY MOUTH EVERY NIGHT AT BEDTIME 07/23/2017 12/19/2017 Inactive Vitamin D2 50,000 unit capsule RxNorm: 780004 1 Capsule(s) PO QW 07/22/2017 07/21/2017 Inactive Vitamin D2 50,000 unit capsule RxNorm: 817096 1 Capsule(s) PO QW 07/22/2017 10/19/2017 Inactive amlodipine 5 mg tablet RxNorm: 253113 1 Tablet(s) PO daily 01/201812/28/2017 Inactive Refill not appropriate Prozac 40 mg capsule RxNorm: 937535 TAKE ONE CAPSULE BY MOUTH DAILY 06/24/2017 06/18/2018 Active Plavix 75 mg tablet RxNorm: 255209 TAKE ONE TABLET BY MOUTH DAILY 06/18/2017 12/10/2017 Inactive Lomotil 2.5 mg-0.025 mg tablet RxNorm: 9818849 1 Tablet(s) PO daily as needed 06/04/2017 11/17/2017 Inactive losartan 100 mg tablet RxNorm: 159265 TAKE ONE TABLET BY MOUTH DAILY 05/11/2017 02/23/2018 Inactive OneTouch Ultra Test strips RxNorm: TEST 1 TIME DAILY 201707/07/2018 Active clonazepam 0.5 mg tablet RxNorm: 862696 Tablet(s) TAKE 2 TABLETS BY MOUTH AT BEDTIME NEEDED 04/14/2017 11/17/2017 Inactive Lomotil 2.5 mg-0.025 mg tablet RxNorm: 7350662 1 Tablet(s) PO daily as needed 03/17/2017 06/03/2017 Inactive Mirapex 0.5 mg tablet RxNorm: 462943 TAKE ONE TABLET BY MOUTH EVERY NIGHT AT BEDTIME 01/19/2017 07/17/2017 Inactive clonazepam 0.5 mg tablet RxNorm: 419031 Tablet(s) TAKE 2 TABLETS BY MOUTH AT BEDTIME NEEDED 01/12/2017 04/09/2017 Inactive tramadol 50 mg tablet RxNorm: 383965 1-2 Tablet(s) PO Q6 PRN pain 12/31/2016 08/24/2017 Inactive folic acid 1 mg tablet RxNorm: 802141 TAKE ONE TABLET BY MOUTH DAILY 12/24/2016 12/10/2017 Inactive tramadol 50 mg tablet RxNorm: 188759 1-2 Tablet(s) PO Q6 PRN pain 12/12/2016 12/16/2016 Inactive tramadol 50 mg tablet RxNorm: 595305 1-2 Tablet(s) PO Q6 PRN pain 12/12/2016 12/11/2016 Inactive clonazepam 0.5 mg tablet RxNorm: 755315 Tablet(s) TAKE 2 TABLETS BY MOUTH AT BEDTIME NEEDED 12/09/2016 01/11/2017 Inactive pravastatin 80 mg tablet RxNorm: 125890 TAKE ONE TABLET BY MOUTH EVERY EVENING 11/11/2016 08/07/2017 Inactive Mirapex 0.5 mg tablet RxNorm: 388831 TAKE ONE TABLET BY MOUTH EVERY NIGHT AT BEDTIME 10/29/2016 01/18/2017 Inactive Prozac 40 mg capsule RxNorm: 043201 TAKE ONE CAPSULE BY MOUTH DAILY 10/29/2016 06/23/2017 Inactive spironolactone 25 mg tablet RxNorm: 896709 TAKE ONE TABLET BY MOUTH DAILY 10/29/2016 12/04/2016 Inactive clonazepam 0.5 mg tablet RxNorm: 455248 Tablet(s) TAKE 2 TABLETS BY MOUTH AT BEDTIME NEEDED 09/24/2016 11/22/2016 Inactive Lomotil 2.5 mg-0.025 mg tablet RxNorm: 5071703 1 Tablet(s) PO daily as needed 07/30/2016 01/23/2017 Inactive sucralfate 1 gram tablet RxNorm: 701365 TAKE ONE-HALF TABLET BY MOUTH TWO TIMES A DAY ONE HOUR BEFORE MEALS 07/28/201608/24 Inactive losartan 100 mg tablet RxNorm: 656127 TAKE ONE TABLET BY MOUTH DAILY 07/28/2016 01/23/2017 Inactive Lialda 1.2 gram tablet,delayed release RxNorm: 696297 3 Tablet(s) PO daily 07/02/2016 08/24/2017 Inactive Mirapex 0.5 mg tablet RxNorm: 798542 TAKE ONE TABLET BY MOUTH EVERY NIGHT AT BEDTIME 06/27/2016 10/24/2016 Inactive clonazepam 0.5 mg tablet RxNorm: 331773 Tablet(s) TAKE 2 TABLETS BY MOUTH AT BEDTIME NEEDED 06/27/2016 01/11/2017 Inactive clonazepam 0.5 mg tablet RxNorm: 002965 Tablet(s) TAKE 2 TABLETS BY MOUTH AT BEDTIME NEEDED 04/29/2016 06/25/2016 Inactive folic acid 1 mg tablet RxNorm: 174842 TAKE ONE TABLET BY MOUTH DAILY 02/28/2016 11/23/2016 Inactive clonazepam 0.5 mg tablet RxNorm: 525377 Tablet(s) TAKE 2 TABLETS BY MOUTH AT BEDTIME NEEDED 02/26/2016 01/11/2017 Inactive OneTouch Ultra Test strips RxNorm: TEST ONCE DAILY 02/25/2016 08/22/2016 Inactive sucralfate 1 gram tablet RxNorm: 236125 TAKE ONE-HALF TABLET BY MOUTH TWO TIMES A DAY ONE HOUR BEFORE MEALS 01/28/201607/25 Inactive Mirapex 0.5 mg tablet RxNorm: 094016 TAKE ONE TABLET BY MOUTH EVERY NIGHT AT BEDTIME 01/28/2016 06/25/2016 Inactive spironolactone 25 mg tablet RxNorm: 518933 TAKE ONE TABLET BY MOUTH DAILY 01/28/2016 10/23/2016 Inactive Lomotil 2.5 mg-0.025 mg tablet RxNorm: 8364662 1 Tablet(s) PO daily as needed 12/05/2015 01/11/2017 Inactive Klor-Con M20 mEq tablet,extended release RxNorm: 321846 TAKE ONE TABLET BY MOUTH THREE TIMES A DAY 12/05/2015 08/24/2017 Inactive losartan 100 mg tablet RxNorm: 586249 TAKE ONE TABLET BY MOUTH DAILY 11/22/2015 07/27/2016 Inactive amlodipine 5 mg tablet RxNorm: 835053 TAKE ONE TABLET BY MOUTH DAILY 11/13/2015 11/06/2016 Inactive Refill not appropriate clonazepam 0.5 mg tablet RxNorm: 171798 Tablet(s) TAKE 2 TABLETS BY MOUTH AT BEDTIME NEEDED 11/08/2015 01/11/2017 Inactive clonazepam 0.5 mg tablet RxNorm: 543457 Tablet(s) TAKE 2 TABLETS BY MOUTH AT BEDTIME NEEDED 11/02/2015 01/29/2016 Inactive Prozac 40 mg capsule RxNorm: 958300 1 Capsule(s) PO daily 10/3010/24/2016 Inactive pravastatin 80 mg tablet RxNorm: 539791 1 Tablet(s) PO QPM 10/23/2016 Inactive OneTouch Ultra Test strips RxNorm: TEST ONCE DAILY 10/30/2015 01/27/2016 Inactive Imuran 50 mg tablet RxNorm: 262899 1.5 (75) Tablet(s) PO daily 08/17/2015 08/10/2016 Inactive K75.4 clonazepam 0.5 mg tablet RxNorm: 866513 Tablet(s) TAKE 2 TABLETS BY MOUTH AT BEDTIME NEEDED 08/10/2015 01/11/2017 Inactive Imuran 50 mg tablet RxNorm: 233898 1.5 (75) Tablet(s) PO daily 08/10/2015 08/16/2015 Inactive OneTouch Ultra Test strips RxNorm: TEST ONCE DAILY 08/09/2015 10/29/2015 Inactive Vitamin D2 50,000 unit capsule RxNorm: 022000 1 Capsule(s) PO QW 08/07/2015 01/11/2017 Inactive Mirapex 0.5 mg tablet RxNorm: 686312 Tablet(s) TAKE ONE TABLET BY MOUTH EVERY NIGHT AT BEDTIME 07/19/2015 01/14/2016 Inactive Lomotil 2.5 mg-0.025 mg tablet RxNorm: 7888325 1 Tablet(s) PO daily as needed 06/06/2015 01/11/2017 Inactive clonazepam 0.5 mg tablet RxNorm: 750202 Tablet(s) TAKE 2 TABLETS BY MOUTH AT BEDTIME NEEDED 05/10/2015 08/06/2015 Inactive sucralfate 1 gram tablet RxNorm: 432952 TAKE ONE-HALF TABLET BY MOUTH TWO TIMES A DAY ONE HOUR BEFORE MEALS 05/04/201501/26 Inactive meclizine 25 mg tablet RxNorm: 401598 1/2-1 Tablet(s) PO Q6 PRN 03/15/2015 08/24/2017 Inactive spironolactone 25 mg tablet RxNorm: 931123 1 Tablet(s) PO daily 03/14/2015 01/27/2016 Inactive spironolactone 25 mg tablet RxNorm: 472812 1 Tablet(s) PO daily 03/14/2015 03/13/2015 Inactive clonazepam 0.5 mg tablet RxNorm: 479231 TAKE 2 TABLETS BY MOUTH AT BEDTIME NEEDED 02/08/2015 05/02/2015 Inactive folic acid 1 mg tablet RxNorm: 315019 1 Tablet(s) PO daily 02/01/2016 Inactive clonazepam 0.5 mg tablet RxNorm: 812408 TAKE 2 TABLETS BY MOUTH AT BEDTIME NEEDED 02/06/2015 02/08/2015 Inactive amlodipine 10 mg tablet RxNorm: 123032 1/2 Tablet(s) PO daily 02/06/2015 07/18/2015 Inactive this replaces her 5mg pill OneTouch Ultra Test strips RxNorm: TEST ONCE DAILY 01/30/2015 07/28/2015 Inactive Mirapex 0.5 mg tablet RxNorm: 925157 TAKE ONE TABLET BY MOUTH EVERY NIGHT AT BEDTIME 01/29/2015 07/18/2015 Inactive sucralfate 1 gram tablet RxNorm: 870454 TAKE ONE-HALF TABLET BY MOUTH TWO TIMES A DAY ONE HOUR BEFORE MEALS 01/11/201504/10 Inactive OneTouch Ultra Test strips RxNorm: 1 Miscellaneous daily 11/1401/29/2015 Inactive amlodipine 10 mg tablet RxNorm: 655442 1 Tablet(s) PO daily 02/05/2015 Inactive this replaces her 5mg pill clonazepam 0.5 mg tablet RxNorm: 621899 2 Tablet(s) PO QHS 10/201402/05/2015 Inactive sucralfate 1 gram tablet RxNorm: 871936 1/2 Tablet(s) PO BID 1 hour before meal 10/11/2014 01/08/2015 Inactive losartan 100 mg tablet RxNorm: 953793 1 Tablet(s) PO daily 04/201410/05/2015 Inactive amlodipine 5 mg tablet RxNorm: 835533 1 Tablet(s) PO daily 04/201410/30/2014 Inactive Imuran 50 mg tablet RxNorm: 930232 1.5 (75) Tablet(s) PO daily 10/11/2014 08/09/2015 Inactive Lomotil 2.5 mg-0.025 mg tablet RxNorm: 6230899 1 Tablet(s) PO daily as needed 10/11/2014 06/05/2015 Inactive pravastatin 80 mg tablet RxNorm: 410519 1 Tablet(s) PO QPM 04/201410/05/2015 Inactive Klor-Con M20 mEq tablet,extended release RxNorm: 308214 1 Tablet(s) PO TID 10/11/2014 10/05/2015 Inactive Mirapex 0.5 mg tablet RxNorm: 379213 1 Tablet(s) PO QHS 201401/28/2015 Inactive Prozac 40 mg capsule RxNorm: 587856 1 Capsule(s) PO daily 10/1110/05/2015 Inactive Colazal 750 mg capsule RxNorm: 973640 1 Capsule(s) PO TID No Start Date Active Combigan 0.2 %-0.5 % eye drops RxNorm: 797261 1 Drop(s) ophthalmic (eye) BID No Start Date Active Lumigan 0.01 % eye drops RxNorm: 9788293 1 Drop(s) OPH QHS No Start Date Active Prolia 60 mg/mL subcutaneous syringe RxNorm: 631878 1 Milliliter(s) SQ every 6 months No Start Date Active Vitamin D2 50,000 unit capsule RxNorm: 309803 1 Capsule(s) PO QW No Start Date 08/06/2015 Inactive OneTouch Ultra Test strips RxNorm: 1 Miscellaneous daily No Start Date 11/13/2014 Inactive Plavix 75 mg tablet RxNorm: 265088 1 Tablet(s) PO daily No Start Date 06/17/2017 Inactive Lomotil 2.5 mg-0.025 mg tablet RxNorm: 7928635 1 Tablet(s) PO daily as needed No Start Date 10/10/2014 Inactive folic acid 1 mg tablet RxNorm: 934935 1 Tablet(s) PO daily No Start Date 02/06/2015 Inactive amlodipine 5 mg tablet RxNorm: 848529 1 Tablet(s) PO daily No Start Date 10/10/2014 Inactive Imuran 50 mg tablet RxNorm: 713262 1 1/2 (75) Tablet(s) PO daily No Start Date 10/10/2014 Inactive Boniva 3 mg/3 mL intravenous syringe RxNorm: 152786 Milliliter(s) IV No Start Date 07/18/2015 Inactive potassium chloride 20 meq RxNorm: 429942 1 PO TID No Start Date 10/10/2014 Inactive sucralfate 1 gram tablet RxNorm: 783019 1/2 Tablet(s) PO BID 1 hour before meal No Start Date 10/10/2014 Inactive losartan 100 mg tablet RxNorm: 798671 1 Tablet(s) PO daily No Start Date 10/10/2014 Inactive Vitamin D3 2,000 unit tablet RxNorm: 781457 1 Tablet(s) PO daily No Start Date 08/23/2015 Inactive Calcium + D oral RxNorm: 165381 oral No Start Date 08/24/2017 Inactive Prozac 40 mg capsule RxNorm: 231641 1 Capsule(s) PO daily No Start Date 10/10/2014 Inactive timolol 0.5 % eye drops RxNorm: 630297 1 Drop(s) OPH BID No Start Date 12/28/2017 Inactive clonazepam 0.5 mg tablet RxNorm: 421417 2 Tablet(s) PO QHS No Start Date 10/16/2014 Inactive amlodipine 5 mg tablet RxNorm: 841016 1 Tablet(s) PO daily No Start Date 08/22/2015 Inactive pravastatin 80 mg tablet RxNorm: 785193 1 Tablet(s) PO QPM No Start Date 10/10/2014 Inactive Lialda 1.2 gram tablet,delayed release RxNorm: 700414 3 Tablet(s) PO daily No Start Date 07/01/2016 Inactive Alavert 10 mg disintegrating tablet RxNorm: 819836 1 Tablet(s) PO daily as needed No Start Date 08/24/2017 Inactive Medication Administered No Medication Administered data Immunizations Vaccine Codes Date Status Influenza CVX: 141 12/29/2017 completed Pneumococcal (Adult) CVX: 133 02/20/2016 completed Influenza CVX: 141 01/23/2016 completed Assessments Condition Codes Effective Dates Encounter for immunization ICD-10: Z23 ICD-9: V03.82 01/12/2018 Muscle weakness (generalized) ICD-10: M62.81 ICD-9: 728.87 01/12/2018 Type 2 diabetes mellitus without complications ICD-10: E11.9 ICD-9: 250.00 01/12/2018 Essential (primary) hypertension ICD-10: I10 ICD-9: 401.1 01/12/2018 Encounter for general adult medical examination with abnormal findings ICD-10: Z00.01 ICD-9: V70.0 09/17/2017 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 artery ICD- 10: I66.01 ICD-9: 434.10 08/25/2017 Essential (primary) hypertension ICD-10: I10 ICD-9: 401.9 07/21/2017 Mixed hyperlipidemia ICD-10: E78.2 ICD-9: 272.4 02/17/2017 Gastro-esophageal reflux disease without esophagitis ICD-10 : K21.9 ICD-9: 530.81 12/05/2016 Cerebral infarction, unspecified ICD-10: I63.9 ICD-9: 434.91 12/05/2016 Allergic rhinitis due to pollen ICD-10: J30.1 ICD-9: 477.0 12/05/2016 Abnormal weight gain ICD-10: R63.5 ICD-9: 783.1 [...] Reason For Visit Effective Dates Notes hypertension 01/12/2018 hypertension 12/29/2017 Annual Medicare Wellness Exam 09/17/2017 hypertension 08/25/2017 hypertension 07/21/2017 hypertension 06/17/2017 hypertension 02/17/2017 hypertension 01/02/2017 hypertension 12/05/2016 Annual Medicare Wellness Exam 08/21/2016 diabetes mellitus 08/19/2016 diabetes mellitus 05/20/2016 diabetes mellitus 01/23/2016 diabetes mellitus 09/26/2015 vertigo 08/23/2015 Annual Medicare Wellness Exam 07/19/2015 vertigo 04/17/2015 vertigo 03/15/2015 edema 02/06/2015 hypertension 12/13/2014 hypertension 10/11/2014 Results Observation Observation Code Item Item Code Result Date C-Reactive Protein Qnt Crqnt CRP 0.1 mg/dl 02/23/2018 Cbc With Differential Ord2 WBC 5.82 K/ul 02/23/2018 Cbc With Differential Ord2 RBC 4.42 M/ul 02/23/2018 Cbc With Differential Ord2 HGB 14.1 g/dl 02/23/2018 Cbc With Differential Ord2 Neut% 68.6 % 02/23/2018 Cbc With Differential Ord2 HCT 41.5 % 02/23/2018 Cbc With Differential Ord2 MCV 93.9 fl 02/23/2018 Cbc With Differential Ord2 Lymph% 21.3 % 02/23/2018 Cbc With Differential Ord2 Todd% 8.8 % 02/23/2018 Cbc With Differential Ord2 MCH 31.9 pg 02/23/2018 Cbc With Differential Ord2 MCHC 34.0 pg 02/23/2018 Cbc With Differential Ord2 Eos% 1.0 % 02/23/2018 Cbc With Differential Ord2 Baso% 0.3 % 02/23/2018 Cbc With Differential Ord2 PLT 199 K/ul 02/23/2018 Cbc With Differential Ord2 Neut ABS# 3.99 K/ul 02/23/2018 Cbc With Differential Ord2 RDW 13.5 % 02/23/2018 Cbc With Differential Ord2 Lymph ABS# 1.24 K/ul 02/23/2018 Cbc With Differential Ord2 Todd ABS# 0.5 K/ul 02/23/2018 Cbc With Differential Ord2 Eos ABS# 0.1 K/ul 02/23/2018 Cbc With Differential Ord2 Baso ABS# 0.0 K/ul 02/23/2018 Comp Metabolic Pmw443 NA 136 mEq/L 02/23/2018 Comp Metabolic Btc182 K 4.0 mEq/L 02/23/2018 Comp Metabolic Wqp266 CL 105 mEq/L 02/23/2018 Comp Metabolic Ngw563 CO2 20.0 mEq/L 02/23/2018 Comp Metabolic Teb586 ANION GAP 15 02/23/2018 Comp Metabolic Zya699 GLUCOSE 129 mg/dL 02/23/2018 Comp Metabolic Rao650 Creat 0.9 mg/dL 02/23/2018 Comp Metabolic Qna047 eGFR 66 ml/min/1.73m2 02/23/2018 Comp Metabolic Jib179 BUN 11 mg/dL 02/23/2018 Comp Metabolic Cdx540 B/C Ratio 12.2 Ratio 02/23/2018 Comp Metabolic Exv516 CALCIUM 8.6 mg/dL 02/23/2018 Comp Metabolic Pzu082 ALK PHOS 43 U/L 02/23/2018 Comp Metabolic Exl719 AST(SGOT) 33 U/L 02/23/2018 Comp Metabolic Wdx576 ALT(SGPT) 24 U/L 02/23/2018 Comp Metabolic Yaq915 BILI T 0.5 mg/dL 02/23/2018 Comp Metabolic Oqs126 ALBUMIN 4.2 g/dL 02/23/2018 Comp Metabolic Cpf165 TPRO 6.8 g/dL 02/23/2018 Comp Metabolic Asy951 GLOB 2.6 g/dL 02/23/2018 Comp Metabolic Bqp738 A/G Ratio 1.6 Ratio 02/23/2018 Comp Metabolic Ovi604 Osmo 273 mOsmo 02/23/2018 Vitamin D 25 Oh [id number] VITAMIN D, 25 HYDROXY 29.25 ng/mL Sed Rate Ord21 ESR 8 mm/hr 02/23/2018 Hepatic Ukg371 ALBUMIN 4.3 g/dL 01/05/2018 Hepatic Lkp774 TPRO 6.7 g/dL 01/05/2018 Hepatic Yjj029 GLOB 2.5 g/dL 01/05/2018 Hepatic Emf659 A/G Ratio 1.7 Ratio 01/05/2018 Hepatic Hnv947 ALK PHOS 53 U/L 01/05/2018 Hepatic Rui777 ALT(SGPT) 31 U/L 01/05/2018 Hepatic Tee428 AST(SGOT) 44 U/L 01/05/2018 Hepatic Wsq605 BILI T 0.4 mg/dL 01/05/2018 Hepatic Tta933 BILI D 0.1 mg/dL 01/05/2018 Hepatic Dby572 BILI I 0.3 mg/dL 01/05/2018 Comp Metabolic Gei499 NA 133 mEq/L 10/20/2017 Comp Metabolic Cud447 K 4.1 mEq/L 10/20/2017 Comp Metabolic Hia750 CL 103 mEq/L 10/20/2017 Comp Metabolic Ovx986 CO2 23.0 mEq/L 10/20/2017 Comp Metabolic Mfq157 ANION GAP 11 10/20/2017 Comp Metabolic Etz967 GLUCOSE 118 mg/dL 10/20/2017 Comp Metabolic Whn534 Creat 0.9 mg/dL 10/20/2017 Comp Metabolic Ajm033 eGFR 64 ml/min/1.73m2 10/20/2017 Comp Metabolic Btw869 BUN 14 mg/dL 10/20/2017 Comp Metabolic Xva894 B/C Ratio 15.2 Ratio 10/20/2017 Comp Metabolic Vca418 CALCIUM 8.8 mg/dL 10/20/2017 Comp Metabolic Bzg680 ALK PHOS 43 U/L 10/20/2017 Comp Metabolic Alp930 AST(SGOT) 31 U/L 10/20/2017 Comp Metabolic Ulf074 ALT(SGPT) 25 U/L 10/20/2017 Comp Metabolic Myk485 BILI T 0.4 mg/dL 10/20/2017 Comp Metabolic Jgb947 ALBUMIN 4.1 g/dL 10/20/2017 Comp Metabolic Sti184 TPRO 6.6 g/dL 10/20/2017 Comp Metabolic Zii699 GLOB 2.5 g/dL 10/20/2017 Comp Metabolic Sfe086 A/G Ratio 1.6 Ratio 10/20/2017 Comp Metabolic Dzo776 Osmo 268 mOsmo 10/20/2017 Vitamin D 25 Oh Nin4998 VITAMIN D, 25 HYDROXY 42.65 ng/mL C-Reactive Protein Qnt Crqnt CRP 0.1 mg/dl 10/20/2017 Cbc With Differential Ord2 WBC 5.46 K/ul 10/20/2017 Cbc With Differential Ord2 RBC 4.41 M/ul 10/20/2017 Cbc With Differential Ord2 HGB 14.1 g/dl 10/20/2017 Cbc With Differential Ord2 Neut% 69.3 % 10/20/2017 Cbc With Differential Ord2 HCT 41.6 % 10/20/2017 Cbc With Differential Ord2 Lymph% 21.2 % 10/20/2017 Cbc With Differential Ord2 MCV 94.3 fl 10/20/2017 Cbc With Differential Ord2 MCH 32.0 pg 10/20/2017 Cbc With Differential Ord2 Todd% 8.6 % 10/20/2017 Cbc With Differential Ord2 MCHC 33.9 pg 10/20/2017 Cbc With Differential Ord2 Eos% 0.5 % 10/20/2017 Cbc With Differential Ord2 Baso% 0.4 % 10/20/2017 Cbc With Differential Ord2 PLT 209 K/ul 10/20/2017 Cbc With Differential Ord2 RDW 13.1 % 10/20/2017 Cbc With Differential Ord2 Neut ABS# 3.78 K/ul 10/20/2017 Cbc With Differential Ord2 Lymph ABS# 1.16 K/ul 10/20/2017 Cbc With Differential Ord2 Todd ABS# 0.5 K/ul 10/20/2017 Cbc With Differential Ord2 Eos ABS# 0.0 K/ul 10/20/2017 Cbc With Differential Ord2 Baso ABS# 0.0 K/ul 10/20/2017 Sed Rate Ord21 ESR 10 mm/hr 10/20/2017 Cbc With Differential Ord2 WBC 6.41 K/ul 07/21/2017 Cbc With Differential Ord2 RBC 4.35 M/ul 07/21/2017 Cbc With Differential Ord2 HGB 14.0 g/dl 07/21/2017 Cbc With Differential Ord2 Neut% 70.8 % 07/21/2017 Cbc With Differential Ord2 HCT 41.3 % 07/21/2017 Cbc With Differential Ord2 MCV 94.9 fl 07/21/2017 Cbc With Differential Ord2 Lymph% 18.7 % 07/21/2017 Cbc With Differential Ord2 Todd% 9.7 % 07/21/2017 Cbc With Differential Ord2 MCH 32.2 pg 07/21/2017 Cbc With Differential Ord2 MCHC 33.9 pg 07/21/2017 Cbc With Differential Ord2 Eos% 0.5 % 07/21/2017 Cbc With Differential Ord2 PLT 216 K/ul 07/21/2017 Cbc With Differential Ord2 Baso% 0.3 % 07/21/2017 Cbc With Differential Ord2 RDW 13.3 % 07/21/2017 Cbc With Differential Ord2 Neut ABS# 4.54 K/ul 07/21/2017 Cbc With Differential Ord2 Lymph ABS# 1.20 K/ul 07/21/2017 Cbc With Differential Ord2 Todd ABS# 0.6 K/ul 07/21/2017 Cbc With Differential Ord2 Eos ABS# 0.0 K/ul 07/21/2017 Cbc With Differential Ord2 Baso ABS# 0.0 K/ul 07/21/2017 Sed Rate Ord21 ESR 14 mm/hr 07/21/2017 Comp Metabolic Lbz047 NA 135 mEq/L 07/21/2017 Comp Metabolic Abx176 K 4.5 mEq/L 07/21/2017 Comp Metabolic Cnv011 CL 101 mEq/L 07/21/2017 Comp Metabolic Bap155 CO2 26.0 mEq/L 07/21/2017 Comp Metabolic Iia502 ANION GAP 13 07/21/2017 Comp Metabolic Aqa434 GLUCOSE 97 mg/dL 07/21/2017 Comp Metabolic Xdp958 Creat 0.9 mg/dL 07/21/2017 Comp Metabolic Rdd734 eGFR 66 ml/min/1.73m2 07/21/2017 Comp Metabolic Kuu608 BUN 13 mg/dL 07/21/2017 Comp Metabolic Rso081 B/C Ratio 14.4 Ratio 07/21/2017 Comp Metabolic Qwx899 CALCIUM 9.2 mg/dL 07/21/2017 Comp Metabolic Nau440 ALK PHOS 46 U/L 07/21/2017 Comp Metabolic Rxs857 AST(SGOT) 31 U/L 07/21/2017 Comp Metabolic Zbb993 ALT(SGPT) 19 U/L 07/21/2017 Comp Metabolic Lid675 BILI T 0.5 mg/dL 07/21/2017 Comp Metabolic Osl785 ALBUMIN 4.5 g/dL 07/21/2017 Comp Metabolic Ett767 TPRO 7.2 g/dL 07/21/2017 Comp Metabolic Oga830 GLOB 2.7 g/dL 07/21/2017 Comp Metabolic Pnv125 A/G Ratio 1.7 Ratio 07/21/2017 Comp Metabolic Cmg676 Osmo 270 mOsmo 07/21/2017 Vitamin D 25 Oh [id number] VITAMIN D, 25 HYDROXY 31.39 ng/mL C-Reactive Protein Qnt Crqnt CRP 0.1 mg/dl 07/21/2017 Metabolic Ord15 NA 131 mEq/L 05/08/2017 Metabolic [...] 40.3 % 04/14/2017 Cbc With Differential Ord2 Lymph% 19.7 % 04/14/2017 Cbc With Differential Ord2 MCV 96.0 fl 04/14/2017 Cbc With Differential Ord2 Todd% 9.1 % 04/14/2017 Cbc With Differential Ord2 MCH 31.9 pg 04/14/2017 Cbc With Differential Ord2 MCHC 33.3 pg 04/14/2017 Cbc With Differential Ord2 Eos% 0.1 % 04/14/2017 Cbc With Differential Ord2 Baso% 0.3 % 04/14/2017 Cbc With Differential Ord2 PLT 207 K/ul 04/14/2017 Cbc With Differential Ord2 Neut ABS# 5.27 K/ul 04/14/2017 Cbc With Differential Ord2 RDW 13.3 % 04/14/2017 Cbc With Differential Ord2 Lymph ABS# 1.47 K/ul 04/14/2017 Cbc With Differential Ord2 Todd ABS# 0.7 K/ul 04/14/2017 Cbc With Differential Ord2 Eos ABS# 0.0 K/ul 04/14/2017 Cbc With Differential Ord2 Baso ABS# 0.0 K/ul 04/14/2017 Comp Metabolic Auy415 NA 136 mEq/L 04/14/2017 Comp Metabolic Bwt797 K 4.4 mEq/L 04/14/2017 Comp Metabolic Dgb410 CL 104 mEq/L 04/14/2017 Comp Metabolic Dbj630 CO2 21.0 mEq/L 04/14/2017 Comp Metabolic Wno795 ANION GAP 15 04/14/2017 Comp Metabolic Jzo860 GLUCOSE 112 mg/dL 04/14/2017 Comp Metabolic Vlq971 Creat 1.1 mg/dL 04/14/2017 Comp Metabolic Fri715 eGFR 51 ml/min/1.73m2 04/14/2017 Comp Metabolic Iml008 BUN 16 mg/dL 04/14/2017 Comp Metabolic Ldv404 B/C Ratio 14.3 Ratio 04/14/2017 Comp Metabolic Opa565 CALCIUM 8.9 mg/dL 04/14/2017 Comp Metabolic Pol942 ALK PHOS 39 U/L 04/14/2017 Comp Metabolic Pcv918 AST(SGOT) 24 U/L 04/14/2017 Comp Metabolic Ohb525 ALT(SGPT) 18 U/L 04/14/2017 Comp Metabolic Rej127 BILI T 0.5 mg/dL 04/14/2017 Comp Metabolic Pek706 ALBUMIN 4.3 g/dL 04/14/2017 Comp Metabolic Vhh244 TPRO 6.8 g/dL 04/14/2017 Comp Metabolic Jet872 GLOB 2.5 g/dL 04/14/2017 Comp Metabolic Gud949 A/G Ratio 1.7 Ratio 04/14/2017 Comp Metabolic Qgu855 Osmo 274 mOsmo 04/14/2017 Vitamin D 25 Oh Sli7025 VITAMIN D, 25 HYDROXY 29.88 ng/mL Sed Rate Ord21 ESR 15 mm/hr 04/14/2017 C-Reactive Protein Qnt Crqnt CRP 0.1 mg/dl 04/14/2017 C-Reactive Protein Qnt Crqnt CRP 0.1 mg/dl 02/09/2017 Comp Metabolic Hgk472 NA 135 mEq/L 02/09/2017 Comp Metabolic Tdr903 K 4.4 mEq/L 02/09/2017 Comp Metabolic Flf979 CL 102 mEq/L 02/09/2017 Comp Metabolic Vfv915 CO2 23.0 mEq/L 02/09/2017 Comp Metabolic Xoq748 ANION GAP 14 02/09/2017 Comp Metabolic Cwk396 GLUCOSE 98 mg/dL 02/09/2017 Comp Metabolic Oxi705 Creat 0.9 mg/dL 02/09/2017 Comp Metabolic Brj198 eGFR 65 ml/min/1.73m2 02/09/2017 Comp Metabolic Ktq602 BUN 18 mg/dL 02/09/2017 Comp Metabolic Djh042 B/C Ratio 19.8 Ratio 02/09/2017 Comp Metabolic Ody705 CALCIUM 9.2 mg/dL 02/09/2017 Comp Metabolic Bha903 ALK PHOS 42 U/L 02/09/2017 Comp Metabolic Guh712 AST(SGOT) 24 U/L 02/09/2017 Comp Metabolic Ayl694 ALT(SGPT) 16 U/L 02/09/2017 Comp Metabolic Cme417 BILI T 0.4 mg/dL 02/09/2017 Comp Metabolic Yxu037 ALBUMIN 4.4 g/dL 02/09/2017 Comp Metabolic Aoo319 TPRO 7.0 g/dL 02/09/2017 Comp Metabolic Xoz626 GLOB 2.6 g/dL 02/09/2017 Comp Metabolic Xtk708 A/G Ratio 1.7 Ratio 02/09/2017 Comp Metabolic Ufp798 Osmo 272 mOsmo 02/09/2017 Cbc With Differential Ord2 WBC 7.27 K/ul 02/09/2017 Cbc With Differential Ord2 RBC 4.19 M/ul 02/09/2017 Cbc With Differential Ord2 HGB 13.6 g/dl 02/09/2017 Cbc With Differential Ord2 HCT 39.7 % 02/09/2017 Cbc With Differential Ord2 Neut% 75.8 % 02/09/2017 Cbc With Differential Ord2 Lymph% 14.6 % 02/09/2017 Cbc With Differential Ord2 MCV 94.7 fl 02/09/2017 Cbc With Differential Ord2 MCH 32.5 pg 02/09/2017 Cbc With Differential Ord2 Todd% 8.7 % 02/09/2017 Cbc With Differential Ord2 [...] 1.06 K/ul 02/09/2017 Cbc With Differential Ord2 Todd ABS# 0.6 K/ul 02/09/2017 Cbc With Differential Ord2 Eos ABS# 0.0 K/ul 02/09/2017 Cbc With Differential Ord2 Baso ABS# 0.0 K/ul 02/09/2017 Vitamin D 25 Oh Xav7869 VITAMIN D, 25 HYDROXY 36.00 ng/mL Sed Rate Ord21 ESR 16 mm/hr 02/09/2017 %Hba1C Kpg134 % HbA1c 46896-9 6.1 % 05/20/2016 %Hba1C Wkm641 Gluc Ave 128 mg/dL 05/20/2016 Lipid Ord30 CHOL 212 mg/dL 05/20/2016 Lipid Ord30 HDL 52.0 mg/dl 05/20/2016 Lipid Ord30 TRIG 149 mg/dL 05/20/2016 Lipid Ord30 LDL 130 mg/dL 05/20/2016 Lipid Ord30 C/HDL 4.1 Ratio 05/20/2016 Comp Metabolic Zpk629 NA 134 mEq/L 04/21/2016 Comp Metabolic Dil563 K 5.0 mEq/L 04/21/2016 Comp Metabolic Kib211 CL 103 mEq/L 04/21/2016 Comp Metabolic Twf952 CO2 24.0 mEq/L 04/21/2016 Comp Metabolic Xki348 ANION GAP 12 04/21/2016 Comp Metabolic Vbs270 GLUCOSE 122 mg/dL 04/21/2016 Comp Metabolic Lrt677 Creat 1.1 mg/dL 04/21/2016 Comp Metabolic Hwa514 eGFR 52 ml/min/1.73m2 04/21/2016 Comp Metabolic Dgp963 BUN 24 mg/dL 04/21/2016 Comp Metabolic Qqj286 B/C Ratio 21.6 Ratio 04/21/2016 Comp Metabolic Cpi454 CALCIUM 9.7 mg/dL 04/21/2016 Comp Metabolic Geb770 ALK PHOS 51 U/L 04/21/2016 Comp Metabolic Buw609 AST(SGOT) 23 U/L 04/21/2016 Comp Metabolic Bna040 ALT(SGPT) 17 U/L 04/21/2016 Comp Metabolic Gxu164 BILI T 0.5 mg/dL 04/21/2016 Comp Metabolic Guj469 ALBUMIN 4.4 g/dL 04/21/2016 Comp Metabolic Sea970 TPRO 7.3 g/dL 04/21/2016 Comp Metabolic Iac045 GLOB 2.9 g/dL 04/21/2016 Comp Metabolic Lin870 A/G Ratio 1.5 Ratio 04/21/2016 Comp Metabolic Txy896 Osmo 274 mOsmo 04/21/2016 Cbc With Differential [...] 32.0 pg 04/21/2016 Cbc With Differential Ord2 Todd% 9.1 % 04/21/2016 Cbc With Differential Ord2 MCHC 33.5 pg 04/21/2016 Cbc With Differential Ord2 Eos% 1.1 % 04/21/2016 Cbc With Differential Ord2 PLT 190 K/ul 04/21/2016 Cbc With Differential Ord2 Baso% 0.3 % 04/21/2016 Cbc With Differential Ord2 RDW 13.3 % 04/21/2016 Cbc With Differential Ord2 Neut ABS# 4.42 K/ul 04/21/2016 Cbc With Differential Ord2 Lymph ABS# 1.39 K/ul 04/21/2016 Cbc With Differential Ord2 Todd ABS# 0.6 K/ul 04/21/2016 Cbc With Differential Ord2 Eos ABS# 0.1 K/ul 04/21/2016 Cbc With Differential Ord2 Baso ABS# 0.0 K/ul 04/21/2016 Bili D Ord93 BILI D 0.1 mg/dL 04/21/2016 Bili D Ord93 BILI I 0.4 mg/dL 04/21/2016 Vitamin D 25 Oh Qjd4038 VITAMIN D, 25 HYDROXY 51.65 ng/mL Sed Rate Ord21 ESR 26 mm/hr 04/21/2016 C-Reactive Protein Qnt Crqnt CRP 0.1 mg/dl 04/21/2016 Comp Metabolic Hzi383 NA 133 mEq/L 03/18/2016 Comp Metabolic Ywv015 K 4.9 mEq/L 03/18/2016 Comp Metabolic Myp949 CL 102 mEq/L 03/18/2016 Comp Metabolic Tnv641 CO2 25.0 mEq/L 03/18/2016 Comp Metabolic Isf815 ANION GAP 11 03/18/2016 Comp Metabolic Rrn384 GLUCOSE 114 mg/dL 03/18/2016 Comp Metabolic Zib951 Creat 1.1 mg/dL 03/18/2016 Comp Metabolic Hvd836 eGFR 54 ml/min/1.73m2 03/18/2016 Comp Metabolic Jvq701 BUN 23 mg/dL 03/18/2016 Comp Metabolic Ktv933 B/C Ratio 21.3 Ratio 03/18/2016 Comp Metabolic Cbr749 CALCIUM 9.7 mg/dL 03/18/2016 Comp Metabolic Yay948 ALK PHOS 54 U/L 03/18/2016 Comp Metabolic Pyl597 AST(SGOT) 21 U/L 03/18/2016 Comp Metabolic Tfd134 ALT(SGPT) 15 U/L 03/18/2016 Comp Metabolic Iei454 BILI T 0.4 mg/dL 03/18/2016 Comp Metabolic Jvc721 ALBUMIN 4.4 g/dL 03/18/2016 Comp Metabolic Ato446 TPRO 7.4 g/dL 03/18/2016 Comp Metabolic Jch548 GLOB 3.0 g/dL 03/18/2016 Comp Metabolic Oct371 A/G Ratio 1.5 Ratio 03/18/2016 Comp Metabolic Zqr288 Osmo 271 mOsmo 03/18/2016 Vitamin D 25 Oh Qhp6403 VITAMIN D, 25 HYDROXY 46.10 ng/mL Sed Rate Ord21 ESR 26 mm/hr 02/13/2016 Comp Metabolic Qmo266 NA 133 mEq/L 02/13/2016 Comp Metabolic Gkk687 K 4.8 mEq/L 02/13/2016 Comp Metabolic Akk593 CL 104 mEq/L 02/13/2016 Comp Metabolic Mmf985 CO2 23.0 mEq/L 02/13/2016 Comp Metabolic Vwo597 ANION GAP 11 02/13/2016 Comp Metabolic Byn006 GLUCOSE 104 mg/dL 02/13/2016 Comp Metabolic Xfs497 Creat 1.0 mg/dL 02/13/2016 Comp Metabolic Asn840 eGFR 56 ml/min/1.73m2 02/13/2016 Comp Metabolic Gjt424 BUN 25 mg/dL 02/13/2016 Comp Metabolic Mcv048 B/C Ratio 24.0 Ratio 02/13/2016 Comp Metabolic Kkb098 CALCIUM 9.1 mg/dL 02/13/2016 Comp Metabolic Isy938 ALK PHOS 43 U/L 02/13/2016 Comp Metabolic Dzi105 AST(SGOT) 21 U/L 02/13/2016 Comp Metabolic Kfi623 ALT(SGPT) 17 U/L 02/13/2016 Comp Metabolic Rmt598 BILI T 0.4 mg/dL 02/13/2016 Comp Metabolic Ysd795 ALBUMIN 4.3 g/dL 02/13/2016 Comp Metabolic Ori417 TPRO 7.1 g/dL 02/13/2016 Comp Metabolic Meq046 GLOB 2.9 g/dL 02/13/2016 Comp Metabolic Xvq702 A/G Ratio 1.5 Ratio 02/13/2016 Comp Metabolic Kzw816 Osmo 271 mOsmo 02/13/2016 C-Reactive Protein Qnt Crqnt CRP 0.1 mg/dl 02/13/2016 Cbc With Differential Ord2 WBC 6.31 K/ul 02/13/2016 Cbc With Differential Ord2 RBC 4.31 M/ul 02/13/2016 Cbc With Differential Ord2 HGB 13.6 g/dl 02/13/2016 Cbc With Differential Ord2 HCT 40.3 % 02/13/2016 Cbc With Differential Ord2 Neut% 70.7 % 02/13/2016 Cbc With Differential Ord2 Lymph% 18.5 % 02/13/2016 Cbc With Differential Ord2 MCV 93.5 fl 02/13/2016 Cbc With Differential Ord2 Todd% 9.7 % 02/13/2016 Cbc With Differential Ord2 MCH 31.6 pg 02/13/2016 Cbc With Differential Ord2 MCHC 33.7 pg 02/13/2016 Cbc With Differential Ord2 Eos% 0.8 % 02/13/2016 Cbc With Differential Ord2 Baso% 0.3 % 02/13/2016 Cbc With Differential Ord2 PLT 203 K/ul 02/13/2016 Cbc With Differential Ord2 Neut ABS# 4.46 K/ul 02/13/2016 Cbc With Differential Ord2 RDW 13.6 % 02/13/2016 Cbc With Differential Ord2 Lymph ABS# 1.17 K/ul 02/13/2016 Cbc With Differential Ord2 Todd ABS# 0.6 K/ul 02/13/2016 Cbc With Differential Ord2 Eos ABS# 0.1 K/ul 02/13/2016 Cbc With Differential Ord2 Baso ABS# 0.0 K/ul 02/13/2016 Comp Metabolic Wkt739 NA 132 mEq/L 10/08/2015 Comp Metabolic Byz343 K 4.7 mEq/L 10/08/2015 Comp Metabolic Wrv951 CL 101 mEq/L 10/08/2015 Comp Metabolic Blg862 CO2 24.0 mEq/L 10/08/2015 Comp Metabolic Owk747 ANION GAP 12 10/08/2015 Comp Metabolic Loh832 GLUCOSE 85 mg/dL 10/08/2015 Comp Metabolic Pvs991 Creat 0.9 mg/dL 10/08/2015 Comp Metabolic Kzt884 eGFR 66 ml/min/1.73m2 10/08/2015 Comp Metabolic Fin833 BUN 29 mg/dL 10/08/2015 Comp Metabolic Pdy721 B/C Ratio 32.2 Ratio 10/08/2015 Comp Metabolic Llw296 CALCIUM 9.1 mg/dL 10/08/2015 Comp Metabolic Wub767 ALK PHOS 40 U/L 10/08/2015 Comp Metabolic Qjr294 AST(SGOT) 18 U/L 10/08/2015 Comp Metabolic Xqg575 ALT(SGPT) 14 U/L 10/08/2015 Comp Metabolic Yry604 BILI T 0.3 mg/dL 10/08/2015 Comp Metabolic Fls248 ALBUMIN 4.1 g/dL 10/08/2015 Comp Metabolic Qfg291 TPRO 6.8 g/dL 10/08/2015 Comp Metabolic Ldj599 GLOB 2.7 g/dL 10/08/2015 Comp Metabolic Wrh611 A/G Ratio 1.5 Ratio 10/08/2015 Comp Metabolic Tkw281 Osmo 270 mOsmo 10/08/2015 C-Reactive Protein Qnt Crqnt CRP 1.0 mg/dl 10/08/2015 Cbc With Differential Ord2 WBC 7.45 K/ul 10/08/2015 Cbc With Differential Ord2 RBC 3.98 M/ul 10/08/2015 Cbc With Differential Ord2 HGB 12.5 g/dl 10/08/2015 Cbc With Differential Ord2 HCT 38.2 % 10/08/2015 Cbc With Differential Ord2 Neut% 72.2 % 10/08/2015 Cbc With Differential Ord2 Lymph% 16.6 % 10/08/2015 Cbc With Differential Ord2 MCV 96.0 fl 10/08/2015 Cbc With Differential Ord2 Todd% 10.5 % 10/08/2015 Cbc With Differential Ord2 MCH 31.4 pg 10/08/2015 Cbc With Differential Ord2 Eos% 0.4 % 10/08/2015 Cbc With Differential Ord2 MCHC 32.7 pg 10/08/2015 Cbc With Differential Ord2 PLT 189 K/ul 10/08/2015 Cbc With Differential Ord2 Baso% 0.3 % 10/08/2015 Cbc With Differential Ord2 RDW 13.2 % 10/08/2015 Cbc With Differential Ord2 Neut ABS# 5.38 K/ul 10/08/2015 Cbc With Differential Ord2 Lymph ABS# 1.24 K/ul 10/08/2015 Cbc With Differential Ord2 Todd ABS# 0.8 K/ul 10/08/2015 Cbc With Differential Ord2 Eos ABS# 0.0 K/ul 10/08/2015 Cbc With Differential Ord2 Baso ABS# 0.0 K/ul 10/08/2015 Sed Rate Ord21 ESR 20 mm/hr 10/08/2015 Vitamin D 25 Oh Glb6941 VITAMIN D, 25 HYDROXY 54.28 ng/mL Tsh Ord6 hTSH II 1.72 uIU/mL 09/26/2015 Free T4 Ueg768 FREE T4 0.80 ng/dL 09/26/2015 Comp Metabolic Hpx677 NA 133 mEq/L 08/06/2015 Comp Metabolic Qky560 K 4.6 mEq/L 08/06/2015 Comp Metabolic Xhz242 CL 102 mEq/L 08/06/2015 Comp Metabolic Xbz649 CO2 24.0 mEq/L 08/06/2015 Comp Metabolic Cgf835 ANION GAP 12 08/06/2015 Comp Metabolic Kmr477 GLUCOSE 105 mg/dL 08/06/2015 Comp Metabolic Hrl795 Creat 1.0 mg/dL 08/06/2015 Comp Metabolic Jqp998 eGFR 60 ml/min/1.73m2 08/06/2015 Comp Metabolic Xql176 BUN 28 mg/dL 08/06/2015 Comp Metabolic Anv722 B/C Ratio 28.6 Ratio 08/06/2015 Comp Metabolic Poh105 CALCIUM 9.2 mg/dL 08/06/2015 Comp Metabolic Lvy723 ALK PHOS 42 U/L 08/06/2015 Comp Metabolic Lfl141 AST(SGOT) 20 U/L 08/06/2015 Comp Metabolic Caa829 ALT(SGPT) 16 U/L 08/06/2015 Comp Metabolic Yky657 BILI T 0.3 mg/dL 08/06/2015 Comp Metabolic Cge482 ALBUMIN 4.3 g/dL 08/06/2015 Comp Metabolic Ceq427 TPRO 6.9 g/dL 08/06/2015 Comp Metabolic Akv920 GLOB 2.7 g/dL 08/06/2015 Comp Metabolic Bsr315 A/G Ratio 1.6 Ratio 08/06/2015 Comp Metabolic Owq735 Osmo 272 mOsmo 08/06/2015 C-Reactive Protein Qnt Crqnt CRP 0.00 mg/dl 08/06/2015 Vitamin D 25 Oh Hps6783 VITAMIN D, 25 HYDROXY 36.25 ng/mL Cbc [...] 20.4 % 08/06/2015 Cbc With Differential Ord2 Todd% 8.9 % 08/06/2015 Cbc With Differential Ord2 MCH 31.7 pg 08/06/2015 Cbc With Differential Ord2 MCHC 33.6 pg 08/06/2015 Cbc With Differential Ord2 Eos% 0.6 % 08/06/2015 Cbc With Differential Ord2 PLT 216 K/ul 08/06/2015 Cbc With Differential Ord2 Baso% 0.2 % 08/06/2015 Cbc With Differential Ord2 RDW 13.6 % 08/06/2015 Cbc With Differential Ord2 Neut ABS# 4.48 K/ul 08/06/2015 Cbc With Differential Ord2 Lymph ABS# 1.31 K/ul 08/06/2015 Cbc With Differential Ord2 Todd ABS# 0.6 K/ul 08/06/2015 Cbc With Differential Ord2 Eos ABS# 0.0 K/ul 08/06/2015 Cbc With Differential Ord2 Baso ABS# 0.0 K/ul 08/06/2015 Cbc With Differential Ord2 New Analyzer Notice Please note new ref ranges starting 04-25-2015 due to implemntation of new five part differential hematolgy analyzer. 08/06/2015 Sed Rate Ord21 ESR 17 mm/hr 08/06/2015 Bili D Ord93 BILI D 0.1 mg/dL 04/04/2015 Bili D Ord93 BILI I 0.4 mg/dL 04/04/2015 %Hba1C Sra082 % HbA1c 41223-0 5.7 % 04/04/2015 %Hba1C Rmb448 Gluc Ave 117 mg/dL 04/04/2015 Vitamin D 25 Oh Omx4375 VITAMIN D, 25 HYDROXY 47.62 ng/mL C-Reactive [...] Ord2 RDW 13.0 % 04/04/2015 Comp Metabolic Tnw669 NA 132 mEq/L 04/04/2015 Comp Metabolic Utr127 K 4.6 mEq/L 04/04/2015 Comp Metabolic Rhg420 CL 100 mEq/L 04/04/2015 Comp Metabolic Gqb516 CO2 22.0 mEq/L 04/04/2015 Comp Metabolic Zvr345 ANION GAP 15 04/04/2015 Comp Metabolic Cet106 GLUCOSE 118 mg/dL 04/04/2015 Comp Metabolic Bnh471 Creat 1.0 mg/dL 04/04/2015 Comp Metabolic Mqg853 eGFR 60 ml/min/1.73m2 04/04/2015 Comp Metabolic Uba445 BUN 18 mg/dL 04/04/2015 Comp Metabolic Psb944 B/C Ratio 18.4 Ratio 04/04/2015 Comp Metabolic Hqf424 CALCIUM 9.6 mg/dL 04/04/2015 Comp Metabolic Eyz536 ALK PHOS 63 U/L 04/04/2015 Comp Metabolic Awx156 AST(SGOT) 17 U/L 04/04/2015 Comp Metabolic Knz358 ALT(SGPT) 13 U/L 04/04/2015 Comp Metabolic Ryz059 BILI T 0.5 mg/dL 04/04/2015 Comp Metabolic Ymv745 ALBUMIN 4.6 g/dL 04/04/2015 Comp Metabolic Bvq953 TPRO 7.4 g/dL 04/04/2015 Comp Metabolic Oju786 GLOB 2.8 g/dL 04/04/2015 Comp Metabolic Rpv441 A/G Ratio 1.6 Ratio 04/04/2015 Comp Metabolic Tny966 Osmo 268 mOsmo 04/04/2015 Sed Rate Ord21 ESR 16 mm/hr 04/04/2015 Lipid Ord30 CHOL 214 mg/dL 04/04/2015 Lipid Ord30 HDL 61.0 mg/dl 04/04/2015 Lipid Ord30 TRIG 155 mg/dL 04/04/2015 Lipid Ord30 LDL 122 mg/dL 04/04/2015 Lipid Ord30 C/HDL 3.5 Ratio 04/04/2015 %Hba1C Ljg160 % HbA1c 35589-5 5.9 % 11/28/2014 %Hba1C Yyp824 Gluc Ave 123 mg/dL 11/28/2014 Sed Rate Ord21 ESR 19 mm/hr 11/27/2014 C-Reactive Protein Qnt Crqnt CRP 0.00 mg/dl 11/27/2014 Cbc With Differential Ord2 WBC 5.9 [...] With Differential Ord2 RDW 14.8 % 11/27/2014 Lipid Ord30 CHOL 196 mg/dL 11/27/2014 Lipid Ord30 HDL 60.0 mg/dl 11/27/2014 Lipid Ord30 TRIG 158 mg/dL 11/27/2014 Lipid Ord30 LDL 104 mg/dL 11/27/2014 Lipid Ord30 C/HDL 3.3 Ratio 11/27/2014 Metabolic Ord15 NA 135 mEq/L 11/27/2014 [...] 11/27/2014 Metabolic Ord15 CALCIUM 9.7 mg/dL 11/27/2014 Hepatic Zkm395 ALBUMIN 4.4 g/dL 11/27/2014 Hepatic Jnh014 TPRO 7.0 g/dL 11/27/2014 Hepatic Llp639 GLOB 2.6 g/dL 11/27/2014 Hepatic Ruc691 A/G Ratio 1.7 Ratio 11/27/2014 Hepatic Rlt803 ALK PHOS 63 U/L 11/27/2014 Hepatic Rze640 ALT(SGPT) 14 U/L 11/27/2014 Hepatic Fum192 AST(SGOT) 19 U/L 11/27/2014 Hepatic Mdg182 BILI T 0.4 mg/dL 11/27/2014 Hepatic Zyx153 BILI D 0.1 mg/dL 11/27/2014 Hepatic Czc897 BILI I 0.3 mg/dL 11/27/2014 Review of Systems System Result Effective Dates Constitutional recent illness 01/12/2018 Constitutional No anorexia 01/12/2018 Constitutional No night sweats 2017 Constitutional No chills 01/12/2018 Constitutional No diaphoresis 01/12/2018 Constitutional fatigue 01/12/2018 Constitutional No fever 01/12/2018 Constitutional malaise 01/12/2018 Eyes No eye discharge 01/12/2018 Eyes No eye erythema 01/12/2018 Ears/Nose/Throat/Neck dizziness 2017 Ears/Nose/Throat/Neck No headache 2017 Ears/Nose/Throat/Neck nasal allergies 05/2017 Ears/Nose/Throat/Neck nasal discharge 05/2017 Ears/Nose/Throat/Neck No sore throat 05/2017 Ears/Nose/Throat/Neck No otalgia 2017 Ears/Nose/Throat/Neck No sinus congestion 01/12/2018 Cardiovascular No chest pain/pressure 05/2017 Cardiovascular No dyspnea 01/12/2018 Cardiovascular No edema 01/12/2018 Respiratory No cough 01/12/2018 Gastrointestinal No abdominal pain 2017 Gastrointestinal gastroesophageal reflux 01/12/2018 Genitourinary/Nephrology No dysuria 01/12 Musculoskeletal No joint complaint 2017 Neurologic No alteration of consciousness 01/12/2018 Neurologic dizziness 01/12/2018 Psychiatric No anxiety 01/12/2018 Psychiatric No depression 01/12/2018 Cardiovascular hypertension 01/12/2018 Cardiovascular fatigue 01/12/2018 Constitutional recent illness 12/29/2017 Constitutional No anorexia 12/29/2017 Constitutional No night sweats 2017 Constitutional No chills 12/29/2017 Constitutional No diaphoresis 12/29/2017 Constitutional fatigue 12/29/2017 Constitutional No fever 12/29/2017 Constitutional malaise 12/29/2017 Eyes No eye discharge 12/29/2017 Eyes No eye erythema 12/29/2017 Ears/Nose/Throat/Neck dizziness 2017 Ears/Nose/Throat/Neck No headache 2017 Ears/Nose/Throat/Neck nasal allergies Ears/Nose/Throat/Neck nasal discharge Ears/Nose/Throat/Neck No sore throat Ears/Nose/Throat/Neck No otalgia 2017 Ears/Nose/Throat/Neck No sinus congestion 12/29/2017 Cardiovascular No chest pain/pressure Cardiovascular No dyspnea 12/29/2017 Cardiovascular No edema 12/29/2017 Respiratory No cough 12/29/2017 Gastrointestinal No abdominal pain 2017 Gastrointestinal gastroesophageal reflux 12/29/2017 Genitourinary/Nephrology No dysuria 12/29 Musculoskeletal No joint complaint 2017 Dermatologic No rash 12/29/2017 Dermatologic No sores 12/29/2017 Neurologic No alteration of consciousness 12/29/2017 Neurologic dizziness 12/29/2017 Psychiatric No anxiety 12/29/2017 Psychiatric No depression 12/29/2017 Constitutional No recent illness 2017 Constitutional No chills 09/17/2017 Constitutional No diaphoresis 09/17/2017 Constitutional No fever 09/17/2017 Eyes No eye erythema 09/17/2017 Ears/Nose/Throat/Neck No nasal discharge 09/17/2017 Cardiovascular No chest pain/pressure 10/2017 Cardiovascular No dyspnea 09/17/2017 Respiratory No cough 09/17/2017 Respiratory No dyspnea 09/17/2017 Neurologic No alteration of consciousness 09/17/2017 Neurologic No mental status change 2017 Constitutional recent illness 08/25/2017 Constitutional No anorexia 08/25/2017 Constitutional No night sweats 2017 Constitutional No chills 08/25/2017 Constitutional No diaphoresis 08/25/2017 Constitutional fatigue 08/25/2017 Constitutional No fever 08/25/2017 Constitutional malaise 08/25/2017 Eyes No eye discharge 08/25/2017 Eyes No eye erythema 08/25/2017 Ears/Nose/Throat/Neck dizziness 2017 Ears/Nose/Throat/Neck No headache 2017 Ears/Nose/Throat/Neck nasal allergies Ears/Nose/Throat/Neck nasal discharge Ears/Nose/Throat/Neck No sore throat Ears/Nose/Throat/Neck No otalgia 2017 Ears/Nose/Throat/Neck No sinus congestion 08/25/2017 Cardiovascular No chest pain/pressure Cardiovascular No dyspnea 08/25/2017 Cardiovascular No edema 08/25/2017 Respiratory No cough 08/25/2017 Gastrointestinal No abdominal pain 2017 Gastrointestinal gastroesophageal reflux 08/25/2017 Genitourinary/Nephrology No dysuria 08/25 Musculoskeletal No joint complaint 2017 Dermatologic No rash 08/25/2017 Dermatologic No sores 08/25/2017 Neurologic No alteration of consciousness 08/25/2017 Neurologic dizziness 08/25/2017 Psychiatric No anxiety 08/25/2017 Psychiatric No depression 08/25/2017 Constitutional recent illness 07/21/2017 Constitutional No anorexia 07/21/2017 Constitutional No night sweats 2017 Constitutional No chills 07/21/2017 Constitutional No diaphoresis 07/21/2017 Constitutional fatigue 07/21/2017 Constitutional No fever 07/21/2017 Constitutional malaise 07/21/2017 Eyes No eye discharge 07/21/2017 Eyes No eye erythema 07/21/2017 Ears/Nose/Throat/Neck dizziness 2017 Ears/Nose/Throat/Neck No headache 2017 Ears/Nose/Throat/Neck nasal allergies 01/2018 Ears/Nose/Throat/Neck nasal discharge 01/2018 Ears/Nose/Throat/Neck No sore throat 01/2018 Ears/Nose/Throat/Neck No otalgia 2017 Ears/Nose/Throat/Neck No sinus congestion 07/21/2017 Cardiovascular No chest pain/pressure 01/2018 Cardiovascular No dyspnea 07/21/2017 Cardiovascular No edema 07/21/2017 Respiratory No cough 07/21/2017 Gastrointestinal No abdominal pain 2017 Gastrointestinal gastroesophageal reflux 07/21/2017 Genitourinary/Nephrology No dysuria 07/21 Musculoskeletal No joint complaint 2017 Dermatologic No rash 07/21/2017 Dermatologic No sores 07/21/2017 Neurologic No alteration of consciousness 07/21/2017 Neurologic dizziness 07/21/2017 Psychiatric No anxiety 07/21/2017 Psychiatric No depression 07/21/2017 Constitutional recent illness 06/17/2017 Constitutional No anorexia 06/17/2017 Constitutional No night sweats 2017 Constitutional No chills 06/17/2017 Constitutional No diaphoresis 06/17/2017 Constitutional fatigue 06/17/2017 Constitutional No fever 06/17/2017 Constitutional malaise 06/17/2017 Eyes No eye discharge 06/17/2017 Eyes No eye erythema 06/17/2017 Ears/Nose/Throat/Neck dizziness 2017 Ears/Nose/Throat/Neck No headache 2017 Ears/Nose/Throat/Neck nasal allergies 10/2017 Ears/Nose/Throat/Neck nasal discharge 10/2017 Ears/Nose/Throat/Neck No sore throat 10/2017 Ears/Nose/Throat/Neck No otalgia 2017 Ears/Nose/Throat/Neck No sinus congestion 06/17/2017 Cardiovascular No chest pain/pressure 10/2017 Cardiovascular No dyspnea 06/17/2017 Cardiovascular No edema 06/17/2017 Respiratory No cough 06/17/2017 Gastrointestinal No abdominal pain 2017 Gastrointestinal gastroesophageal reflux 06/17/2017 Genitourinary/Nephrology No dysuria 06/17 Musculoskeletal No joint complaint 2017 Dermatologic No rash 06/17/2017 Dermatologic No sores 06/17/2017 Neurologic No alteration of consciousness 06/17/2017 Neurologic dizziness 06/17/2017 Psychiatric No anxiety 06/17/2017 Psychiatric No depression 06/17/2017 Constitutional No recent illness 2016 Constitutional No [...] 1994 Constitutional general appearance Development: well developed 01/12/2018 None Full Exam - General 1994 Constitutional general appearance Development: appears stated age 1001/12/2018 None Full Exam - General 1994 Constitutional general appearance Hygiene/Attention to Grooming: good hygiene 01/12/2018 None Full Exam - General 1994 Eyes conjunctiva /eyelids Overall: conjunctiva clear 01/12/2018 None Full Exam - General 1994 Eyes conjunctiva /eyelids Overall: cornea clear 01/12/2018 None Full Exam - General 1994 Eyes conjunctiva /eyelids Overall: eyelids normal 01/12/2018 None Full Exam - General 1994 Eyes pupils and irises Overall: pupils equal, round, reactive to light and accomodation 01/12/2018 None Full Exam - General 1994 Ears/Nose/Throat otoscopic exam Overall: external auditory canals clear 01/12/2018 None Full Exam - General 1994 Ears/Nose/Throat otoscopic exam Overall: tympanic membranes clear 01/12/2018 None Full Exam - General 1994 Ears/Nose/Throat lips/teeth/gingiva Overall: benign lips 01/12/2018 None Full Exam - General 1994 Ears/Nose/Throat lips/teeth/gingiva Overall: normal dentition 01/12/2018 None Full Exam - General 1994 Ears/Nose/Throat oral cavity/pharynx/larynx Overall: oral mucosa clear 01/12/2018 None Full Exam - General 1995 Ears/Nose/Throat oral cavity/pharynx/larynx Overall: oropharyngeal mucosa clear 01/12/2018 None Full Exam - General 1995 Ears/Nose/Throat oral cavity/pharynx/larynx Overall: hypopharynx benign 01/12/2018 None Full Exam - General 1995 Ears/Nose/Throat oral cavity/pharynx/larynx Overall: no masses 01/12/2018 None Full Exam - General 1994 Respiratory auscultation Overall: breath sounds clear bilaterally 01/12/2018 None Full Exam - General 1994 Respiratory respiratory effort/rhythm Overall: no retractions 01/12/2018 None Full Exam - General 1994 Respiratory respiratory effort/rhythm Overall: normal rate 01/12/2018 None Full Exam - General 1994 Cardiovascular extremities Edema present: severity 1+ - 4 +: trace 01/12/2018 None Full Exam - General 1994 Cardiovascular auscultation of heart Overall: regular rate 01/12/2018 None Full Exam - General 1994 Cardiovascular auscultation of heart Overall: normal heart sounds 01/12/2018 None Full Exam - General 1994 Musculoskeletal spine, ribs and pelvis Overall: good posture 01/12/2018 None Full Exam - General 1994 Musculoskeletal head and neck Overall: head atraumatic 01/12/2018 None Full Exam - General 1994 Musculoskeletal head and neck Overall: cervical spine benign 01/12/2018 None Full Exam - General 1994 Psychiatric orientation/consciousness Overall: oriented to person, place and time 01/12/2018 None Full Exam - General 1994 Psychiatric mood and affect Overall: normal mood and affect 01/12/2018 None Full Exam - General 1994 Constitutional general appearance Development: well developed 12/29/2017 None Full Exam - General 1994 Constitutional general appearance Development: appears stated age 0912/29/2017 None Full Exam - General 1994 Constitutional general appearance Hygiene/Attention to Grooming: good hygiene 12/29/2017 None Full Exam - General 1994 Eyes conjunctiva /eyelids Overall: conjunctiva clear 12/29/2017 None Full Exam - General 1994 Eyes conjunctiva /eyelids Overall: cornea clear 12/29/2017 None Full Exam - General 1994 Eyes conjunctiva /eyelids Overall: eyelids normal 12/29/2017 None Full Exam - General 1994 Eyes pupils and irises Overall: pupils equal, round, reactive to light and accomodation 12/29/2017 None Full Exam - General 1994 Ears/Nose/Throat otoscopic exam Overall: external auditory canals clear 12/29/2017 None Full Exam - General 1994 Ears/Nose/Throat otoscopic exam Overall: tympanic membranes clear 12/29/2017 None Full Exam - General 1994 Ears/Nose/Throat lips/teeth/gingiva Overall: benign lips 12/29/2017 None Full Exam - General 1994 Ears/Nose/Throat lips/teeth/gingiva Overall: normal dentition 12/29/2017 None Full Exam - General 1994 Ears/Nose/Throat oral cavity/pharynx/larynx Overall: oral mucosa clear 12/29/2017 None Full Exam - General 1994 Ears/Nose/Throat oral cavity/pharynx/larynx Overall: oropharyngeal mucosa clear 12/29/2017 None Full Exam - General 1994 Ears/Nose/Throat oral cavity/pharynx/larynx Overall: hypopharynx benign 12/29/2017 None Full Exam - General 1994 Ears/Nose/Throat oral cavity/pharynx/larynx Overall: no masses 12/29/2017 None Full Exam - General 1994 Respiratory auscultation Overall: breath sounds clear bilaterally 12/29/2017 None Full Exam - General 1994 Respiratory respiratory effort/rhythm Overall: no retractions 12/29/2017 None Full Exam - General 1994 Respiratory respiratory effort/rhythm Overall: normal rate 12/29/2017 None Full Exam - General 1994 Cardiovascular extremities Edema present: severity 1+ - 4 +: trace 12/29/2017 None Full Exam - General 1994 Cardiovascular auscultation of heart Overall: regular rate 12/29/2017 None Full Exam - General 1994 Cardiovascular auscultation of heart Overall: normal heart sounds 12/29/2017 None Full Exam - General 1994 Abdomen abdominal exam Overall: no tenderness 12/29/2017 None Full Exam - General 1994 Abdomen abdominal exam Overall: normal bowel sounds 12/29/2017 None Full Exam - General 1994 Lymphatic neck nodes Overall: anterior cervical chain benign 12/29/2017 None Full Exam - General 1994 Lymphatic neck nodes Overall: posterior cervical chain benign 12/29/2017 None Full Exam - General 1994 Musculoskeletal spine, ribs and pelvis Overall: spine benign 12/29/2017 None Full Exam - General 1994 Musculoskeletal spine, ribs and pelvis Overall: sacroiliac joint benign 12/29/2017 None Full Exam - General 1994 Musculoskeletal spine, ribs and pelvis Overall: good posture 12/29/2017 None Full Exam - General 1994 Musculoskeletal head and neck Overall: head atraumatic 12/29/2017 None Full Exam - General 1994 Musculoskeletal head and neck Overall: cervical spine benign 12/29/2017 None Full Exam - General 1994 Integument inspection of skin Rash/Lesions: patch 12/29/2017 on left breast - inner upper quadrant - irritated lesion about 0.5cm in size - treated with cryotherapy today Full Exam - General 1994 Neurologic cranial nerves Overall: crainial nerves 2 - 12 grossly intact 12/29/2017 None Full Exam - General 1994 Psychiatric orientation/consciousness Overall: oriented to person, place and time 12/29/2017 None Full Exam - General 1994 Psychiatric mood and affect Overall: normal mood and affect 12/29/2017 None Full Exam - General 1994 Constitutional general appearance Overall: well developed 09/17/2017 None Full Exam - General 1994 Constitutional general appearance Overall: in no acute distress 09/17/2017 None Full Exam - General 1994 Constitutional general appearance Overall: well nourished 09/17/2017 None Full Exam - General 1994 Eyes conjunctiva /eyelids Overall: conjunctiva clear 09/17/2017 None Full Exam - General 1994 Eyes conjunctiva /eyelids Overall: eyelids normal 09/17/2017 None Full Exam - General 1994 Ears/Nose/Throat lips/teeth/gingiva Overall: benign lips 09/17/2017 None Full Exam - General 1994 Respiratory respiratory effort/rhythm Overall: no retractions 09/17/2017 None Full Exam - General 1994 Respiratory respiratory effort/rhythm Overall: normal rate 09/17/2017 None Full Exam - General 1994 Musculoskeletal head and neck Overall: head atraumatic 09/17/2017 None Full Exam - General 1994 Neurologic cranial nerves Overall: crainial nerves 2 - 12 grossly intact 09/17/2017 None Full Exam - General 1994 Psychiatric orientation/consciousness Overall: oriented to person, place and time 09/17/2017 None Full Exam - General 1994 Psychiatric mood and affect Overall: normal mood and affect 09/17/2017 None Full Exam - General 1994 Psychiatric appearance Overall: well-groomed, good eye contact 09/17/2017 None Full Exam - General 1994 Constitutional general appearance Development: well developed 08/25/2017 None Full Exam - General 1994 Constitutional general appearance Development: appears stated age 0508/25/2017 None Full Exam - General 1994 Constitutional general appearance Hygiene/Attention to Grooming: good hygiene 08/25/2017 None Full Exam - General 1994 Eyes conjunctiva /eyelids Overall: conjunctiva clear 08/25/2017 None Full Exam - General 1994 Eyes conjunctiva /eyelids Overall: cornea clear 08/25/2017 None Full Exam - General 1994 Eyes conjunctiva /eyelids Overall: eyelids normal 08/25/2017 None Full Exam - General 1994 Eyes pupils and irises Overall: pupils equal, round, reactive to light and accomodation 08/25/2017 None Full Exam - General 1994 Ears/Nose/Throat otoscopic exam Overall: external auditory canals clear 08/25/2017 None Full Exam - General 1994 Ears/Nose/Throat otoscopic exam Overall: tympanic membranes clear 08/25/2017 None Full Exam - General 1994 Ears/Nose/Throat lips/teeth/gingiva Overall: benign lips 08/25/2017 None Full Exam - General 1994 Ears/Nose/Throat lips/teeth/gingiva Overall: normal dentition 08/25/2017 None Full Exam - General 1994 Ears/Nose/Throat oral cavity/pharynx/larynx Overall: oral mucosa clear 08/25/2017 None Full Exam - General 1994 Ears/Nose/Throat oral cavity/pharynx/larynx Overall: oropharyngeal mucosa clear 08/25/2017 None Full Exam - General 1994 Ears/Nose/Throat oral cavity/pharynx/larynx Overall: hypopharynx benign 08/25/2017 None Full Exam - General 1994 Ears/Nose/Throat oral cavity/pharynx/larynx Overall: no masses 08/25/2017 None Full Exam - General 1994 Respiratory auscultation Overall: breath sounds clear bilaterally 08/25/2017 None Full Exam - General 1994 Respiratory respiratory effort/rhythm Overall: no retractions 08/25/2017 None Full Exam - General 1994 Respiratory respiratory effort/rhythm Overall: normal rate 08/25/2017 None Full Exam - General 1994 Cardiovascular extremities Edema present: severity 1+ - 4 +: trace 08/25/2017 None Full Exam - General 1994 Cardiovascular auscultation of heart Overall: regular rate 08/25/2017 None Full Exam - General 1994 Cardiovascular auscultation of heart Overall: normal heart sounds 08/25/2017 None Full Exam - General 1994 Abdomen abdominal exam Overall: no tenderness 08/25/2017 None Full Exam - General 1994 Abdomen abdominal exam Overall: normal bowel sounds 08/25/2017 None Full Exam - General 1994 Lymphatic neck nodes Overall: anterior cervical chain benign 08/25/2017 None Full Exam - General 1994 Lymphatic neck nodes Overall: posterior cervical chain benign 08/25/2017 None Full Exam - General 1994 Musculoskeletal spine, ribs and pelvis Overall: spine benign 08/25/2017 None Full Exam - General 1994 Musculoskeletal spine, ribs and pelvis Overall: sacroiliac joint benign 08/25/2017 None Full Exam - General 1994 Musculoskeletal spine, ribs and pelvis Overall: good posture 08/25/2017 None Full Exam - General 1994 Musculoskeletal head and neck Overall: head atraumatic 08/25/2017 None Full Exam - General 1994 Musculoskeletal head and neck Overall: cervical spine benign 08/25/2017 None Full Exam - General 1994 Integument inspection of skin Rash/Lesions: patch 08/25/2017 on left breast - inner upper quadrant - irritated lesion about 0.5cm in size - treated with cryotherapy today Full Exam - General 1994 Neurologic cranial nerves Overall: crainial nerves 2 - 12 grossly intact 08/25/2017 None Full Exam - General 1994 Psychiatric orientation/consciousness Overall: oriented to person, place and time 08/25/2017 None Full Exam - General 1994 Psychiatric mood and affect Overall: normal mood and affect 08/25/2017 None Full Exam - General 1994 Constitutional general appearance Development: well developed 07/21/2017 None Full Exam - General 1994 Constitutional general appearance Development: appears stated age 0407/21/2017 None Full Exam - General 1994 Constitutional general appearance Hygiene/Attention to Grooming: good hygiene 07/21/2017 None Full Exam - General 1994 Eyes conjunctiva /eyelids Overall: conjunctiva clear 07/21/2017 None Full Exam - General 1994 Eyes conjunctiva /eyelids Overall: cornea clear 07/21/2017 None Full Exam - General 1994 Eyes conjunctiva /eyelids Overall: eyelids normal 07/21/2017 None Full Exam - General 1994 Eyes pupils and irises Overall: pupils equal, round, reactive to light and accomodation 07/21/2017 None Full Exam - General 1994 Ears/Nose/Throat otoscopic exam Overall: external auditory canals clear 07/21/2017 None Full Exam - General 1994 Ears/Nose/Throat otoscopic exam Overall: tympanic membranes clear 07/21/2017 None Full Exam - General 1994 Ears/Nose/Throat lips/teeth/gingiva Overall: benign lips 07/21/2017 None Full Exam - General 1994 Ears/Nose/Throat lips/teeth/gingiva Overall: normal dentition 07/21/2017 None Full Exam - General 1994 Ears/Nose/Throat oral cavity/pharynx/larynx Overall: oral mucosa clear 07/21/2017 None Full Exam - General 1994 Ears/Nose/Throat oral cavity/pharynx/larynx Overall: oropharyngeal mucosa clear 07/21/2017 None Full Exam - General 1994 Ears/Nose/Throat oral cavity/pharynx/larynx Overall: hypopharynx benign 07/21/2017 None Full Exam - General 1994 Ears/Nose/Throat oral cavity/pharynx/larynx Overall: no masses 07/21/2017 None Full Exam - General 1994 Respiratory auscultation Overall: breath sounds clear bilaterally 07/21/2017 None Full Exam - General 1994 Respiratory respiratory effort/rhythm Overall: no retractions 07/21/2017 None Full Exam - General 1994 Respiratory respiratory effort/rhythm Overall: normal rate 07/21/2017 None Full Exam - General 1994 Cardiovascular extremities Edema present: severity 1+ - 4 +: trace 07/21/2017 None Full Exam - General 1994 Cardiovascular auscultation of heart Overall: regular rate 07/21/2017 None Full Exam - General 1994 Cardiovascular auscultation of heart Overall: normal heart sounds 07/21/2017 None Full Exam - General 1994 Abdomen abdominal exam Overall: no tenderness 07/21/2017 None Full Exam - General 1994 Abdomen abdominal exam Overall: normal bowel sounds 07/21/2017 None Full Exam - General 1994 Lymphatic neck nodes Overall: anterior cervical chain benign 07/21/2017 None Full Exam - General 1994 Lymphatic neck nodes Overall: posterior cervical chain benign 07/21/2017 None Full Exam - General 1994 Musculoskeletal spine, ribs and pelvis Overall: spine benign 07/21/2017 None Full Exam - General 1994 Musculoskeletal spine, ribs and pelvis Overall: sacroiliac joint benign 07/21/2017 None Full Exam - General 1994 Musculoskeletal spine, ribs and pelvis Overall: good posture 07/21/2017 None Full Exam - General 1994 Musculoskeletal head and neck Overall: head atraumatic 07/21/2017 None Full Exam - General 1994 Musculoskeletal head and neck Overall: cervical spine benign 07/21/2017 None Full Exam - General 1994 Integument inspection of skin Rash/Lesions: patch 07/21/2017 on left breast - inner upper quadrant - irritated lesion about 0.5cm in size - treated with cryotherapy today Full Exam - General 1994 Neurologic cranial nerves Overall: crainial nerves 2 - 12 grossly intact 07/21/2017 None Full Exam - General 1994 Psychiatric orientation/consciousness Overall: oriented to person, place and time 07/21/2017 None Full Exam - General 1994 Psychiatric mood and affect Overall: normal mood and affect 07/21/2017 None Full Exam - General 1994 Constitutional general appearance Development: well developed 06/17/2017 None Full Exam - General 1994 Constitutional general appearance Development: appears stated age 0306/17/2017 None Full Exam - General 1994 Constitutional general appearance Hygiene/Attention to Grooming: good hygiene 06/17/2017 None Full Exam - General 1994 Eyes conjunctiva /eyelids Overall: conjunctiva clear 06/17/2017 None Full Exam - General 1994 Eyes conjunctiva /eyelids Overall: cornea clear 06/17/2017 None Full Exam - General 1994 Eyes conjunctiva /eyelids Overall: eyelids normal 06/17/2017 None Full Exam - General 1994 Eyes pupils and irises Overall: pupils equal, round, reactive to light and accomodation 06/17/2017 None Full Exam - General 1994 Ears/Nose/Throat otoscopic exam Overall: external auditory canals clear 06/17/2017 None Full Exam - General 1994 Ears/Nose/Throat otoscopic exam Overall: tympanic membranes clear 06/17/2017 None Full Exam - General 1994 Ears/Nose/Throat lips/teeth/gingiva Overall: benign lips 06/17/2017 None Full Exam - General 1994 Ears/Nose/Throat lips/teeth/gingiva Overall: normal dentition 06/17/2017 None Full Exam - General 1994 Ears/Nose/Throat oral cavity/pharynx/larynx Overall: oral mucosa clear 06/17/2017 None Full Exam - General 1994 Ears/Nose/Throat oral cavity/pharynx/larynx Overall: oropharyngeal mucosa clear 06/17/2017 None Full Exam - General 1994 Ears/Nose/Throat oral cavity/pharynx/larynx Overall: hypopharynx benign 06/17/2017 None Full Exam - General 1994 Ears/Nose/Throat oral cavity/pharynx/larynx Overall: no masses 06/17/2017 None Full Exam - General 1994 Respiratory auscultation Overall: breath sounds clear bilaterally 06/17/2017 None Full Exam - General 1994 Respiratory respiratory effort/rhythm Overall: no retractions 06/17/2017 None Full Exam - General 1994 Respiratory respiratory effort/rhythm Overall: normal rate 06/17/2017 None Full Exam - General 1994 Cardiovascular extremities Edema present: severity 1+ - 4 +: trace 06/17/2017 None Full Exam - General 1994 Cardiovascular auscultation of heart Overall: regular rate 06/17/2017 None Full Exam - General 1994 Cardiovascular auscultation of heart Overall: normal heart sounds 06/17/2017 None Full Exam - General 1994 Abdomen abdominal exam Overall: no tenderness 06/17/2017 None Full Exam - General 1994 Abdomen abdominal exam Overall: normal bowel sounds 06/17/2017 None Full Exam - General 1994 Lymphatic neck nodes Overall: anterior cervical chain benign 06/17/2017 None Full Exam - General 1994 Lymphatic neck nodes Overall: posterior cervical chain benign 06/17/2017 None Full Exam - General 1994 Musculoskeletal spine, ribs and pelvis Overall: spine benign 06/17/2017 None Full Exam - General 1994 Musculoskeletal spine, ribs and pelvis Overall: sacroiliac joint benign 06/17/2017 None Full Exam - General 1994 Musculoskeletal spine, ribs and pelvis Overall: good posture 06/17/2017 None Full Exam - General 1994 Musculoskeletal head and neck Overall: head atraumatic 06/17/2017 None Full Exam - General 1994 Musculoskeletal head and neck Overall: cervical spine benign 06/17/2017 None Full Exam - General 1994 Integument inspection of skin Rash/Lesions: patch 06/17/2017 on left breast - inner upper quadrant - irritated lesion about 0.5cm in size - treated with cryotherapy today Full Exam - General 1994 Neurologic deep tendon reflexes Overall: deep tendon reflexes intact 06/17/2017 None Full Exam - General 1994 Neurologic cranial nerves Overall: crainial nerves 2 - 12 grossly intact 06/17/2017 None Full Exam - General 1994 Psychiatric orientation/consciousness Overall: oriented to person, place and time 06/17/2017 None Full Exam - General 1994 Psychiatric mood and affect Overall: normal mood and affect 06/17/2017 None Full Exam - General 1994 Constitutional [...] lips 05/20/2016 None Full Exam - General 1994 Ears/Nose/Throat lips/teeth/gingiva Overall: normal dentition 05/20/2016 None Full Exam - General 1994 [...] lips 12/13/2014 None Full Exam - General 1995 Ears/Nose/Throat lips/teeth/gingiva Overall: normal dentition 12/13/2014 None Full Exam - General 1994 Ears/Nose/Throat oral cavity/pharynx/larynx Overall: oral mucosa clear 12/13/2014 None Full Exam - General 1994 Ears/Nose/Throat oral cavity/pharynx/larynx Overall: oropharyngeal mucosa clear 12/13/2014 None Full Exam - General 1995 Ears/Nose/Throat oral cavity/pharynx/larynx Overall: hypopharynx benign 12/13/2014 [...] affect 10/11/2014 None Procedures Procedure Codes Date ADMIN INFLUENZA VIRUS VAC CPT-4: G0008 12/29/2017 FLU VACC PRSV FREE INC ANTIG Formatting Model/CDA Sections, Assigned to/Tabitha Velasquez CPT-4: 48061Hihomzf 12/29/2017 PPPS, SUBSEQ VISIT CPT -4: G0439 09/17/2017 PPPS, SUBSEQ VISIT CPT -4: G0439 08/21/2016 PNEUMOCOCCAL VACC [address]: 12220763 CPT-4: 16618 02/20/2016 ADMIN PNEUMOCOCCAL VACCINE SNOMED CT: 89784011 CPT-4: G0009 02/20/2016 ADMIN INFLUENZA VIRUS VAC CPT-4: G0008 01/23/2016 FLU VACC 4 KATIE 3 YRS PLUS IM SNOMED CT: 48191576 CPT-4: 55895 01/23/2016 PPPS, SUBSEQ VISIT CPT -4: G0439 07/19/2015 Vital Signs Date Vital 01/12/2018 Blood Pressure 1: 124/70 Code : 8480-6 BMI: 30.2 Code : 22230-9 Heart Rate 1 : 59 bpm Height: 5'1" SpO2: 98% Weight: 160 lbs 12/29/2017 Blood Pressure 1: 148/82 Code : 8480-6 BMI: 30.4 Code : 98901-8 Heart Rate 1 : 60 bpm Height: 5'1" SpO2: 99% Weight: 161 lbs 09/17/2017 Height: Weight: 08/25/2017 Blood Pressure 1: 130/72 Code : 8480-6 BMI: 29.9 Code : 19438-6 Heart Rate 1 : 70 bpm Height: 5'1" SpO2: 93% Weight: 158 lbs 07/21/2017 Blood Pressure 1: 150/84 Code : 8480-6 BMI: 29.5 Code : 72922-7 Heart Rate 1 : 62 bpm Height: 5'1" SpO2: 98% Weight: 156 lbs 06/17/2017 Blood Pressure 1: 148/86 Code : 8480-6 BMI: 29.5 Code : 60705-6 Heart Rate 1 : 64 bpm Height: 5'1" SpO2: 98% Weight: 156 lbs 02/17/2017 Blood Pressure 1: 144/86 Code : 8480-6 BMI: 28.7 Code : 06664-4 Heart Rate 1 : 64 bpm Height: 5'1" SpO2: 96% Weight: 152 lbs 01/02/2017 Blood Pressure 1: 132/78 Code : 8480-6 BMI: 28.3 Code : 20932-0 Heart Rate 1 : 71 bpm Height: 5'1" SpO2: 97% Weight: 150 lbs 12/05/2016 Blood Pressure 1: 140/76 Code : 8480-6 BMI: 29.5 Code : 41143-8 Heart Rate 1 : 66 bpm Height: 5'1" SpO2: 98% Weight: 156 lbs 08/21/2016 Blood Pressure 1: 142/78 Code : 8480-6 BMI: 29.9 Code : 12145-1 Heart Rate 1 : 62 bpm Height: 5'1" SpO2: 98% Waist Measure (cm): 79 cm Weight: 158 lbs 08/19/2016 Blood Pressure 1: 142/78 Code : 8480-6 BMI: 29.9 Code : 07749-7 Heart Rate 1 : 62 bpm Height: 5'1" SpO2: 98% Weight: 158 lbs 05/20/2016 Blood Pressure 1: 152/76 Code : 8480-6 Blood Pressure 1: 144/80 Code: 8480-6 BMI: 29.3 Code: 86001-0 Heart Rate 1: 60 bpm Height: 5'1" SpO2: 95% Weight: 155 lbs 01/23/2016 Blood Pressure 1: 138/78 Code : 8480-6 BMI: 29.7 Code : 45451-6 Heart Rate 1 : 64 bpm Height: 5'1" SpO2: 98% Weight: 157 lbs 09/26/2015 Blood Pressure 1: 136/76 Code : 8480-6 BMI: 28.3 Code : 72275-3 Heart Rate 1 : 70 bpm Height: 5'1" SpO2: 98% Weight: 150 lbs 08/23/2015 Blood Pressure 1: 126/78 Code : 8480-6 BMI: 27.8 Code : 05478-8 Heart Rate 1 : 68 bpm Height: 5'1" SpO2: 97% Weight: 147 lbs 07/19/2015 Blood Pressure 1: 146/70 Code : 8480-6 BMI: 26.8 Code : 68324-4 Heart Rate 1 : 58 bpm Height: 5'1" SpO2: 96% Waist Measure (cm): 84 cm Weight: 142 lbs 04/17/2015 Blood Pressure 1: 132/62 Code : 8480-6 BMI: 25.3 Code : 19057-8 Heart Rate 1 : 98 bpm Height: 5'1" SpO2: 97% Weight: 134 lbs 03/15/2015 Blood Pressure 1: 158/72 Code : 8480-6 Blood Pressure 1: 160/70 Code: 8480-6 BMI: 25.5 Code: 86024-2 Heart Rate 1: 74 bpm Heart Rate 1: 72 bpm Height: 5'1" Height: SpO2: 98% Weight: 135 lbs Weight: 02/06/2015 Blood Pressure 1: 142/82 Code : 8480-6 BMI: 25.5 Code : 28280-6 Heart Rate 1 : 82 bpm Height: 5'1" SpO2: 96% Weight: 135 lbs 12/13/2014 Blood Pressure 1: 136/64 Code : 8480-6 BMI: 24.9 Code : 44672-2 Heart Rate 1 : 86 bpm Height: 5'1" SpO2: 95% Weight: 132 lbs 10/11/2014 Blood Pressure 1: 140/80 Code : 8480-6 BMI: 25.1 Code : 76138-5 Heart Rate 1 : 72 bpm Height: 5'1" Weight: 133 lbs Functional Status No Functional Status data History of Present Illness Symptom Name Status Result Effective Date Notes hypertension Quality chronic 01/12/2018 None hypertension Quality primary hypertension 01/12/2018 None hypertension Onset and Resolution ongoing 01/12/2018 None hypertension Onset of Symptom during adulthood 01/12/2018 None hypertension Blood Pressure Values pt checking blood pressure - see scanned document 01/12/2018 None hypertension Alleviating Factors medication 01/12/2018 None hypertension Pertinent Findings Denies dyspnea 01/12/2018 on exertion hypertension Pertinent Findings edema 01/12/2018 in the legs, ankles, and feet in the evenings diabetes mellitus Quality non-insulin dependent 01/12/2018 None diabetes mellitus Quality chronic 01/12/2018 None diabetes mellitus Alleviating Factors diet only 01/12/2018 None diabetes mellitus Exacerbating Factors diet 01/12/2018 None diabetes mellitus Glucose monitoring daily 01/12/2018 None diabetes mellitus Pertinent Findings Denies numbness 01/12/2018 None hypertension Quality primary hypertension 12/29/2017 None hypertension Onset and Resolution ongoing 12/29/2017 None hypertension Onset of Symptom during adulthood 12/29/2017 None hypertension Alleviating Factors medication 12/29/2017 None hypertension Pertinent Findings dyspnea 12/29/2017 on exertion hypertension Pertinent Findings edema 12/29/2017 in the legs, ankles, and feet in the evenings rash Location-Major on the upper body 12/29/2017 None rash Location-Head/Neck in the periorbital area 12/29/2017 None rash Location-Head/Neck in the perioral area 12/29/2017 None rash Triggers no known triggers 12/29/2017 None rash Quality acute None rash Quality improving 12/29/2017 None rash Onset and Resolution ongoing 12/29/2017 None rash Onset of Symptom several months ago 12/29/2017 None rash Color erythematous 12/29/2017 None rash Pertinent Findings itching 12/29/2017 and burning hypertension Quality chronic 12/29/2017 None hypertension Blood Pressure Values pt checking blood pressure - see scanned document 12/29/2017 None diabetes mellitus Quality non-insulin dependent 12/29/2017 None diabetes mellitus Glucose monitoring daily 12/29/2017 None diabetes mellitus Test results Pt checking blood glucose at home, see scanned readings 2017 None diabetes mellitus Alleviating Factors diet only 12/29/2017 None diabetes mellitus Exacerbating Factors diet 12/29/2017 None diabetes mellitus Quality chronic 12/29/2017 None Annual Medicare Wellness Exam Alcohol Use does not drink any alcohol 09/17/2017 None Annual Medicare Wellness Exam Aspirin Use yes 09/17/2017 81mg Annual Medicare Wellness Exam Blood Glucose (self reported) borderline high (100-125) 09/17/2017 None Annual Medicare Wellness Exam Blood Pressure (self reported ) borderline (120/80 - 139/89) 09/17/2017 None Annual Medicare Wellness Exam Cholesterol (self reported) don't know 09/17/2017 None Annual Medicare Wellness Exam Depression (last 6 months) some of the time 09/17/2017 None Annual Medicare Wellness Exam Depression or Hopelessness almost never 09/17/2017 None Annual Medicare Wellness Exam Describe Your Health good 09/17/2017 None Annual Medicare Wellness Exam Exercise Habits does not exercise 09/17/2017 None Annual Medicare Wellness Exam Handling Stress usually jean effectively 09/17/2017 None Annual Medicare Wellness Exam Hemaglobin A-1C (self reported ) don't know 09/17/2017 None Annual Medicare Wellness Exam Hours of Sleep 7 09/17/2017 None Annual Medicare Wellness Exam Interaction with Friends yes 09/17/2017 None Annual Medicare Wellness Exam Interests & Pleasure almost never 09/17/2017 None Annual Medicare Wellness Exam Life Satisfaction satisfied 09/17/2017 None Annual Medicare Wellness Exam Motor Vehicle Safety always fastens seat belt: y 09/17/2017 None Annual Medicare Wellness Exam Nutrition servings of vegetables / fruit per day: 2-3 09/17/2017 None Annual Medicare Wellness Exam Smoking and Tobacco Use non smoker 09/17/2017 None Annual Medicare Wellness Exam Social & Emotional Support sometimes 09/17/2017 None Annual Medicare Wellness Exam Stress some of the time 09/17/2017 None Annual Medicare Wellness Exam Sun Exposure protects skin when outdoors: n 09/17/2017 None hypertension Quality primary hypertension 08/25/2017 None hypertension Onset and Resolution ongoing 08/25/2017 None hypertension Onset of Symptom during adulthood 08/25/2017 None hypertension Blood Pressure Values patient checking blood pressure at home - did not bring in readings 08/25/2017 None hypertension Alleviating Factors medication 08/25/2017 None hypertension Pertinent Findings Denies dizziness 08/25/2017 -has not had any vertigo since stroke in February hypertension Pertinent Findings dyspnea 08/25/2017 on exertion hypertension Pertinent Findings edema 08/25/2017 ankles, tops of feet, hands muscle weakness Quality right-sided 08/25/2017 None muscle weakness Quality improving 08/25/2017 None muscle weakness Onset and Resolution improved during the day 08/25/2017 None muscle weakness Onset and Resolution ongoing 08/25/2017 None muscle weakness Frequency of Episodes daily 08/25/2017 None hypertension Pertinent Findings Denies anxiety 08/25/2017 None hypertension Pertinent Findings Denies decreased energy 08/25/2017 None hypertension Triggers no known associated factors 08/25/2017 None hypertension Quality primary hypertension 07/21/2017 None hypertension Onset and Resolution ongoing 07/21/2017 None hypertension Onset of Symptom during adulthood 07/21/2017 None hypertension Blood Pressure Values patient checking blood pressure at home - did not bring in readings 07/21/2017 None hypertension Alleviating Factors medication 07/21/2017 None hypertension Pertinent Findings Denies dizziness 07/21/2017 -has not had any vertigo since stroke in February hypertension Pertinent Findings dyspnea 07/21/2017 "some" hypertension Pertinent Findings Denies edema 07/21/2017 None muscle weakness Quality right-sided 07/21/2017 None muscle weakness Quality improving 07/21/2017 None muscle weakness Onset and Resolution ongoing 07/21/2017 None muscle weakness Frequency of Episodes daily 07/21/2017 None muscle weakness Onset and Resolution improved during the day 07/21/2017 None hypertension Quality primary hypertension 06/17/2017 None hypertension Onset and Resolution ongoing 06/17/2017 None hypertension Onset of Symptom during adulthood 06/17/2017 None hypertension Alleviating Factors medication 06/17/2017 None hypertension Pertinent Findings Denies dizziness 06/17/2017 -has not had any vertigo since stroke in February hypertension Pertinent Findings dyspnea 06/17/2017 "some" hypertension Pertinent Findings Denies edema 06/17/2017 None hypertension Blood Pressure Values patient checking blood pressure at home - did not bring in readings 06/17/2017 None muscle weakness Quality right-sided 06/17/2017 None muscle weakness Onset and Resolution ongoing 06/17/2017 None muscle weakness Quality improving 06/17/2017 None muscle weakness Frequency of Episodes daily 06/17/2017 None hypertension Quality primary hypertension 02/17/2017 None hypertension [...] Findings Denies dyspnea 10/11/2014 None Advance Directives Advance Directives Present Encounters Encounter Performer Location Codes Date ) 61951 EST. PATIENT, LEVEL III Diagnosis: Essential (primary) hypertension[ICD10: I10] Diagnosis: Type 2 diabetes mellitus without complications[ICD10: E11.9] Diagnosis: Encounter for immunization[ICD10: Z23] Diagnosis: Muscle weakness (generalized)[ICD10: M62.81] Maria Luisa Echeverria MD, [facility] CPT-4: 13167 01/12/2018 [id number]) 10199 EST. PATIENT, LEVEL IV Diagnosis: Essential (primary) hypertension[ICD10: I10] Diagnosis: Type 2 diabetes mellitus without complications[ICD10: E11.9] Diagnosis: Encounter for immunization[ICD10: Z23] Diagnosis: Muscle weakness (generalized)[ICD10: M62.81] Maria Luisa Echeverria MD, [facility] CPT-4: 00400 12/29/2017 ([id number]) 18785 EST. 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 PATIENT, LEVEL IV Diagnosis: Essential (primary) hypertension[ICD10: I10] Diagnosis: Muscle weakness (generalized)[ICD10: M62.81] Diagnosis: Mixed hyperlipidemia[ICD10: E78.2] Maria Luisa Echeverria MD [facility] CPT-4: 26648 02/17/2017 ([id number]) 11716 EST. PATIENT, LEVEL III Diagnosis: Essential (primary) hypertension[ICD10: I10] Diagnosis: Muscle weakness (generalized)[ICD10: M62.81] Diamond Echeverria MD, [facility] CPT-4: 08847 01/02/2017 ([id number]) 79906 EST. PATIENT, LEVEL IV Diagnosis: Muscle weakness (generalized)[ICD10: M62.81] Diagnosis: Cerebral infarction, unspecified[ICD10: I63.9] Diagnosis: Essential (primary) hypertension[ICD10: I10] Diagnosis: Gastro-esophageal reflux disease without esophagitis[ICD10: K21.9] Diagnosis: Allergic rhinitis due to pollen[ICD10: J30.1] Diamond Echeverria MD [facility] CPT-4: 61762 12/05/2016 [id number]) 90396 EST. PATIENT, LEVEL IV Diagnosis: Essential (primary) hypertension[ICD10: I10] Diagnosis: Type 2 diabetes mellitus without complications[ICD10: E11.9] Maria Luisa Echeverria MD [facility] CPT-4: 56781 08/19/2016 66936 EST. PATIENT, LEVEL IV Diagnosis: Essential (primary) hypertension[ICD10: I10] Diagnosis: Type 2 diabetes mellitus without complications[ICD10: E11.9] Diagnosis: Mixed hyperlipidemia[ICD10: E78.2] Ashley Echeverria MD, [facility] CPT-4: 45518 05/20/2016 [id number] 46762 EST. PATIENT, LEVEL IV Diagnosis: Type 2 diabetes mellitus without complications[ICD10: E11.9] Diagnosis: Family history of other endocrine, nutritional and metabolic diseases [ICD10: Z83.49] Diagnosis: Other fatigue[ICD10: R53.83] Diagnosis: Abnormal weight gain[ICD10: R63.5] Diagnosis: Actinic keratosis[ICD10: L57.0] Maria Luisa Echeverria MD, [facility] CPT- 4: 70173 01/23/2016 [id number]) 07170 EST. PATIENT, LEVEL IV Diagnosis: Family history of other endocrine, nutritional and metabolic diseases [ICD10: Z83.49] Diagnosis: Other fatigue[ICD10: R53.83] Diagnosis: Abnormal weight gain[ICD10: R63.5] Diagnosis: Actinic keratosis[ICD10: L57.0] Diagnosis: Type 2 diabetes mellitus without complications[ICD10: E11.9] Maria Luisa Echeverria MD, [facility] CPT-4: 00510 09/26/2015 [id number] 46062 EST. PATIENT, LEVEL IV Diagnosis: Essential (primary) hypertension[ICD10: I10] Diagnosis: Type 2 diabetes mellitus without complications[ICD10: E11.9] Diagnosis: Other depressive episodes[ICD10: F32.8] Diagnosis: Vitamin D deficiency, unspecified[ICD10: E55.9] Maria Luisa Echeverria MD [facility] CPT-4: 64566 08/23/2015 [id number]) 80066 EST. PATIENT, LEVEL IV Diagnosis: Essential (primary) hypertension[ICD10: I10] Diagnosis: Benign paroxysmal vertigo, unspecified ear[ICD10: H81.10] Diagnosis: Type 2 diabetes mellitus without complications[ICD10: E11.9] Maria Luisa Echeverria MD [facility] CPT-4: 59204 04/17/2015 [id number] 03520 EST. PATIENT, LEVEL III Diagnosis: Essential (primary) hypertension[ICD10: I10] Diagnosis: Benign paroxysmal vertigo, unspecified ear[ICD10: H81.10] Diamond Echeverria MD [facility] CPT-4: 92902 03/15/2015 [id number]) 18706 EST. PATIENT, LEVEL III Diagnosis: Essential (primary) hypertension[ICD10: I10] Diagnosis: Edema, unspecified[ICD10: R60.9] Diamond Echeverria MD, [facility] CPT-4: 20112 02/06/2015 ([id number]) 37986 EST. PATIENT, LEVEL IV Diagnosis: ESSENTIAL HYPERTENSION[ICD9: 401.9] Diagnosis: HYPERLIPIDEMIA[ICD9: 272.4] Diagnosis: DEPRESSIVE DISORDER NEC[ICD9: 311] Diagnosis: ESOPHAGEAL REFLUX[ICD9: 530.81] Diagnosis: RESTLESS LEGS SYNDROME[ICD9: 333.94] Maria Luisa Echeverria MD, [facility] CPT-4: 73445 12/13/2014 ([id number]) OFFICE VISIT, NEW - LEVEL 4 Diagnosis: ESSENTIAL HYPERTENSION[ICD9: 401.9] Diagnosis: HYPERLIPIDEMIA[ICD9: 272.4] Diagnosis: DEPRESSIVE DISORDER NEC[ICD9: 311] Diagnosis: ESOPHAGEAL REFLUX[ICD9: 530.81] Diagnosis: RESTLESS LEGS SYNDROME[ICD9: 333.94] Maria Luisa Echeverria MD, [facility] CPT-4: 96291 10/11/2014 Plan of Care Planned Activity Notes Codes Status Date Visit Plan: Hypertension - improved control - continue with current medications, continue with no added salt diet. Pt has been encouraged to exercise daily. The pt has been advised to call the office if there are any acute concerns about change in blood pressure readings at home. 01/12/2018 Appointment: Maria Luisa Echeverria WPtel: [address] [place], [place] [phone] (15 min) Moderate 01/12/2018 Patient Education: Patient Medication Summary Completed 01/12/2018 Patient Education: Diabetes Completed 01/12/2018 Visit Plan: Hypertension - well controlled - continue with current medications, continue with no added salt diet. Pt has been encouraged to exercise daily. The pt has been advised to call the office if there are any acute concerns about change in blood pressure readings at home. Abnormal glucose - discussed with pt - continue with daily blood glucose readings - supportive care at this time - no medications needed. Gait instability -she has finished therapy at this point in time - she reports that she stopped therapy when she [place] the [place]. She states that she does struggle with her strength. She states that she would rather do activities on her own rather than going to physical therapy. high dose flu shot today due to autoimmune deficiency 12/29/2017 Appointment: [facility] [phone] [facility] (15 min) Moderate 12/29/2017 Patient Education: Patient Medication Summary Completed 12/29/2017 Patient Education: Diabetes Completed 12/29/2017 Visit Plan: Medicare Exam - today we [...] her DOPA paperwork for health care surrogate. 09/17/2017 Patient Education: Patient Medication Summary Completed 09/17/2017 Visit Plan: Hypertension - well controlled - continue with current medications, continue with no added salt diet. Pt has been encouraged to exercise daily. The pt has been advised to call the office if there are any acute concerns about change in blood pressure readings at home. Right Middle Cerebral artery stroke - appt with neurology with Dr. Macario at [facility]. -pt has paperwork that she has to send in for the neurology department she has her appt on September 16. Gait instability -she has finished therapy at this point in time - she reports that she stopped therapy when she left the jail. She states that she does struggle with her strength. She states that she would rather do activities on her own rather than going to physical therapy. 08/25/2017 Appointment: Maria Luisa Echeverria [facility] [phone] [facility] (15 min) Moderate 08/25/2017 Patient Education: Patient Medication Summary Completed 08/25/2017 Visit Plan: Hypertension - uncontrolled - the [...] pt is to call for acute concerns. Restart amlodipine. Right Middle Cerebral artery stroke - appt with neurology with Dr. Macario at [facility]. - we had attempted to set this up - for the second time - apparently EDITH called her Dtr-In-Law - who informed them to call her - but she never got a phone call about the appointment and she would like it to be rescheduled. We will call EDITH again about scheduling her for an appt with Dr. Macario. Gait instability - continue with therapy. 07/21/2017 Appointment: Maria Luisa Echeverria [facility] [phone] [facility] (15 min) Moderate 07/21/2017 Patient Education: Patient Medication Summary Completed 07/21/2017 Visit Plan: Right Middle Cerebral artery stroke - appt with neurology with Dr. Macario at [facility]. Gait instability - appt with out physical therapy Hypertension - stable - continue with current treatment - monitor symptoms DM - diet controlled - 06/17/2017 Appointment: Maria Luisa Echeverria [facility] [phone] [facility] (15 min) Moderate 06/17/2017 Patient Education: Patient Medication Summary Completed 06/17/2017 Visit Plan: Hypertension - well controlled - [...] medications. 02/17/2017 Appointment: Maria Luisa Echeverria WPtel: [facility] (15 min) Moderate 02/17/2017 Patient Education: Patient Medication Summary Completed 02/17/2017 Care Plan: Referral Order SNOMED-CT : [id number] Pending 02/17/2017 Visit Plan: Hypertension - well controlled - continue with current medications, continue with no added salt diet. Pt has been encouraged to exercise daily. The pt has been advised to call the office if there are any acute concerns about change in blood pressure readings at home. Weakness-recent stroke-strength improving-no changes 01/02/2017 Appointment: Diamond Sawyer WPtel: [phone] [phone] (30 min) Complex 01/02/2017 Patient Education: Patient Medication Summary Completed 01/02/2017 Visit Plan: Hypertension - well controlled - continue with current medications, continue with no added salt diet. Pt has been encouraged to exercise daily. The pt has been advised to call the office if there are any acute concerns about change in blood pressure readings at home. Generalized weakness-gait awvaykbobnt-YVA-xnpcqqmf PT-patient to use 4 wheeled walker GERD- dysphagia-refer for speech eval-start pepcid twice daily Allergies-chronic- restart allergy pill as directed 12/05/2016 Appointment: Diamond Sawyer WPtel: [phone] [phone] [place] (15 min) Moderate 12/05/2016 Patient Education: [...] care surrogate. 08/21/2016 [facility]ment: [facility] [phone] [facility] [facility] - Annual Wellness Visit 08/21/2016 Patient Education: [...] controlled. 08/19/2016 Appointment: Maria Luisa Echeverria [facility] [phone] [facility] (15 min) Moderate 08/19/2016 Patient Education: Patient [...] to medications. 05/20/2016 Appointment: [facility] [phone] [facility] (15 min) Moderate 05/20/2016 Patient Education: Patient [...] TODAY 01/23/2016 Appointment: Maria Luisa Echeverria [facility] [phone] [facility] [place] (15 min) Moderate 01/23/2016 Patient Education: [...] home. 09/26/2015 Appointment: Maria Luisa Echeverria WPtel: [id number] (15 min) Moderate 09/26/2015 Patient Education: Patient [...] Completed 08/23/2015 Appointment: Maria Luisa Echeverria WPtel: [facility] (15 min) Moderate 08/22/2015 Appointment: Maria Luisa Echeverria WPtel: [facility] (15 min) Moderate 08/15/2015 Visit Plan: Medicare [...] paperwork for health care surrogate. 07/19/2015 Appointment: [facility] - Annual Wellness Visit 07/19/2015 Patient [...] week. 04/17/2015 Appointment: Maria Luisa Echeverria [facility] [phone] [facility] (15 min) Moderate 04/17/2015 Patient Education: Patient [...] 12/13/2014 Appointment: Maria Luisa Echeverria [facility]: [phone] [facility] (15 min) Moderate 12/13/2014 Patient Education: Patient [...] medications. 10/11/2014 Appointment: Maria Luisa Echeverria WPtel: [facility] [place] ([place] New Patient 10/11/2014 Appointment: Maria Luisa Echeverria WPtel: [facility] (15 min) Moderate 10/11/2014 Patient Education: Patient [...] further attempt to reduce peripheral edema. . Hypertension - uncontrolled - the patient's [...] pt is to call for acute concerns. Restart amlodipine. Right Middle Cerebral artery stroke - appt with neurology with Dr. Macario at [facility]. - we had attempted to set this up - for the second time - apparently EDITH called her Dtr-In-Law - who informed them to call her - but she never got a phone call about the appointment and she would like it to be rescheduled. We will call EDITH again about scheduling her for an appt with Dr. Macario. Gait instability - continue with therapy. . Diabetes Mellitus - controlled - per [...] to assure normal liver response to medications. stay off of the amlodipine and start on coreg 1/2 pill twice daily. get over the counter XYLIMELT tablets -these help with dry mouth . Hypertension - well controlled - continue with current medications, continue with no added salt diet. Pt has been encouraged to exercise daily. The pt has been advised to call the office if there are any acute concerns about change in blood pressure readings at home. Abnormal glucose - discussed with pt - continue with daily blood glucose readings - supportive care at this time - no medications needed. Gait instability -she has finished therapy at this point in time - she reports that she stopped therapy when she left the jail. She states that she does struggle with her strength. She states that she would rather do activities on her own rather than going to physical therapy. high dose flu shot today due to autoimmune deficiency . Medicare Exam - today we discussed [...] her DOPA paperwork for health care surrogate. PEPCID 20MG TWICE DAILY OK TO RESTART ALLERGY PILL SPEECH THERAPY TO EVALUATE AND TREAT . Hypertension - well controlled - continue with current medications, continue with no added salt diet. Pt has been encouraged to exercise daily. The pt has been advised to call the office if there are any acute concerns about change in blood pressure readings at home. Generalized weakness-gait xlihebtamml-NFY-jmwamnds PT-patient to use 4 wheeled walker MHWI-humhvgrst-ctcoc for speech eval-start pepcid twice daily Qzcnfxisc-awylkez-xoetfjq allergy pill as directed . Hypertension - improved control - continue with current medications, continue with no added salt diet. Pt has been encouraged to exercise daily. The pt has been advised to call the office if there are any acute concerns about change in blood pressure readings at home. . Right Middle Cerebral artery stroke - appt with neurology with Dr. Macario at [facility]. Gait instability - appt with outpt physical therapy Hypertension - stable - continue with current treatment - monitor symptoms DM - diet controlled - stop AMLODIPINE - due to swelling in [...] - continue with supplementation as previously directed. . Diabetes Mellitus - controlled - per [...] pressure readings at home. FLU SHOT TODAY change the time of the losartan to [...] change in blood pressure readings at home. Right Middle Cerebral artery stroke - appt with neurology with Dr. Macario at [facility]. -pt has paperwork that she has to send in for the neurology department she has her appt on September 16. Gait instability -she has finished therapy at this point in time - she reports that she stopped therapy when she left the jail. She states that she does struggle with her strength. She states that she would rather do activities on her own rather than going to physical therapy. . Medicare Exam - today we discussed [...] her DOPA paperwork for health care surrogate. mirapex is for night-time dose at night [...] DOPA paperwork for health care surrogate. . Hypertension - well controlled - continue with current medications, continue with no added salt diet. Pt has been encouraged to exercise daily. The pt has been advised to call the office if there are any acute concerns about change in blood pressure readings at home. Weakness-recent stroke-strength improving-no changes
--- OUTSIDE RECORDS SUMMARY | 2018-04-05 17:27 | XMS REPORT | CCD ---
Author Author [facility] Organization [facility] Address [address] [place] [address] Phone Care Team Providers Care Life Skills Educator Name Role Phone PP Unavailable CCM Unavailable Summary Purpose Interface Exchange Insurance Providers Payer name Policy type / Coverage type Covered libertarian ID Effective Begin Date Effective End Date WPS Medicare Part B Medicare Part B [id number] 2017 Unknown [facility] Medicare Part B [id number] Unknown Family history Mother Diagnosis Age At [...] Unknown 3 10/11/[address]: 007527931 Never smoker 10/11/[address]: 832065242 Never drinks alcohol 10/11/2014 Allergies, Adverse Reactions, [...] Start Date Stop Date Status Fill Instructions clonazepam 0.5 mg tablet RxNorm: 311880 Tablet(s) TAKE 2 TABLETS BY MOUTH AT BEDTIME NEEDED 01/20/2018 04/19/2018 Active Coreg 3.125 mg tablet RxNorm: 801988 1/2 Tablet(s) PO BID 201704/27/2018 Active Mirapex 0.5 mg tablet RxNorm: 854824 TAKE ONE TABLET BY MOUTH EVERY NIGHT AT BEDTIME 12/21/2017 05/19/2018 Active Plavix 75 mg tablet RxNorm: 493917 TAKE ONE TABLET BY MOUTH DAILY 12/11/2017 03/05/2019 Active folic acid 1 mg tablet RxNorm: 160591 TAKE ONE TABLET BY MOUTH DAILY 12/11/2017 12/05/2018 Active Aspirin Low Dose 81 mg tablet,delayed release RxNorm: 847132 TAKE ONE TABLET BY MOUTH DAILY 11/24/2017 12/28/2017 Inactive Request already responded to by other means (e.g. phone or fax) Aspirin Low Dose 81 mg tablet,delayed release RxNorm: 844759 1 Tablet(s) PO daily 11/18/2017 11/17/2017 Inactive Aspirin Low Dose 81 mg tablet,delayed release RxNorm: 294011 1 Tablet(s) PO daily 11/18/2017 11/23/2017 Inactive clonazepam 0.5 mg tablet RxNorm: 351150 Tablet(s) TAKE 2 TABLETS BY MOUTH AT BEDTIME NEEDED 10/23/2017 01/19/2018 Inactive Lomotil 2.5 mg-0.025 mg tablet RxNorm: 1892128 1 Tablet(s) PO daily as needed 09/28/2017 03/26/2018 Active pravastatin 80 mg tablet RxNorm: 585740 TAKE ONE TABLET BY MOUTH EVERY EVENING 08/19/2017 11/11/2018 Active clonazepam 0.5 mg tablet RxNorm: 446372 Tablet(s) TAKE 2 TABLETS BY MOUTH AT BEDTIME NEEDED 07/24/2017 10/20/2017 Inactive Mirapex 0.5 mg tablet RxNorm: 836993 TAKE ONE TABLET BY MOUTH EVERY NIGHT AT BEDTIME 07/23/2017 12/19/2017 Inactive Vitamin D2 50,000 unit capsule RxNorm: 791829 1 Capsule(s) PO QW 07/22/2017 07/21/2017 Inactive Vitamin D2 50,000 unit capsule RxNorm: 558865 1 Capsule(s) PO QW 07/22/2017 10/19/2017 Inactive amlodipine 5 mg tablet RxNorm: 209061 1 Tablet(s) PO daily 01/201812/28/2017 Inactive Refill not appropriate Prozac 40 mg capsule RxNorm: 756758 TAKE ONE CAPSULE BY MOUTH DAILY 06/24/2017 06/18/2018 Active Plavix 75 mg tablet RxNorm: 717803 TAKE ONE TABLET BY MOUTH DAILY 06/18/2017 12/10/2017 Inactive Lomotil 2.5 mg-0.025 mg tablet RxNorm: 7064861 1 Tablet(s) PO daily as needed 06/04/2017 11/17/2017 Inactive losartan 100 mg tablet RxNorm: 658535 TAKE ONE TABLET BY MOUTH DAILY 05/11/2017 05/05/2018 Active OneTouch Ultra Test strips RxNorm: TEST 1 TIME DAILY 201707/07/2018 Active clonazepam 0.5 mg tablet RxNorm: 197194 Tablet(s) TAKE 2 TABLETS BY MOUTH AT BEDTIME NEEDED 04/14/2017 11/17/2017 Inactive Lomotil 2.5 mg-0.025 mg tablet RxNorm: 6124027 1 Tablet(s) PO daily as needed 03/17/2017 06/03/2017 Inactive Mirapex 0.5 mg tablet RxNorm: 129732 TAKE ONE TABLET BY MOUTH EVERY NIGHT AT BEDTIME 01/19/2017 07/17/2017 Inactive clonazepam 0.5 mg tablet RxNorm: 978737 Tablet(s) TAKE 2 TABLETS BY MOUTH AT BEDTIME NEEDED 01/12/2017 04/09/2017 Inactive tramadol 50 mg tablet RxNorm: 104305 1-2 Tablet(s) PO Q6 PRN pain 12/31/2016 08/24/2017 Inactive folic acid 1 mg tablet RxNorm: 573643 TAKE ONE TABLET BY MOUTH DAILY 12/24/2016 12/10/2017 Inactive tramadol 50 mg tablet RxNorm: 730015 1-2 Tablet(s) PO Q6 PRN pain 12/12/2016 12/16/2016 Inactive tramadol 50 mg tablet RxNorm: 388013 1-2 Tablet(s) PO Q6 PRN pain 12/12/2016 12/11/2016 Inactive clonazepam 0.5 mg tablet RxNorm: 590641 Tablet(s) TAKE 2 TABLETS BY MOUTH AT BEDTIME NEEDED 12/09/2016 01/11/2017 Inactive pravastatin 80 mg tablet RxNorm: 511777 TAKE ONE TABLET BY MOUTH EVERY EVENING 11/11/2016 08/07/2017 Inactive Mirapex 0.5 mg tablet RxNorm: 514697 TAKE ONE TABLET BY MOUTH EVERY NIGHT AT BEDTIME 10/29/2016 01/18/2017 Inactive Prozac 40 mg capsule RxNorm: 115957 TAKE ONE CAPSULE BY MOUTH DAILY 10/29/2016 06/23/2017 Inactive spironolactone 25 mg tablet RxNorm: 097253 TAKE ONE TABLET BY MOUTH DAILY 10/29/2016 12/04/2016 Inactive clonazepam 0.5 mg tablet RxNorm: 155912 Tablet(s) TAKE 2 TABLETS BY MOUTH AT BEDTIME NEEDED 09/24/2016 11/22/2016 Inactive Lomotil 2.5 mg-0.025 mg tablet RxNorm: 0686959 1 Tablet(s) PO daily as needed 07/30/2016 01/23/2017 Inactive sucralfate 1 gram tablet RxNorm: 424405 TAKE ONE-HALF TABLET BY MOUTH TWO TIMES A DAY ONE HOUR BEFORE MEALS 07/28/201608/24 Inactive losartan 100 mg tablet RxNorm: 856359 TAKE ONE TABLET BY MOUTH DAILY 07/28/2016 01/23/2017 Inactive Lialda 1.2 gram tablet,delayed release RxNorm: 322862 3 Tablet(s) PO daily 07/02/2016 08/24/2017 Inactive Mirapex 0.5 mg tablet RxNorm: 664374 TAKE ONE TABLET BY MOUTH EVERY NIGHT AT BEDTIME 06/27/2016 10/24/2016 Inactive clonazepam 0.5 mg tablet RxNorm: 325100 Tablet(s) TAKE 2 TABLETS BY MOUTH AT BEDTIME NEEDED 06/27/2016 01/11/2017 Inactive clonazepam 0.5 mg tablet RxNorm: 514646 Tablet(s) TAKE 2 TABLETS BY MOUTH AT BEDTIME NEEDED 04/29/2016 06/25/2016 Inactive folic acid 1 mg tablet RxNorm: 692242 TAKE ONE TABLET BY MOUTH DAILY 02/28/2016 11/23/2016 Inactive clonazepam 0.5 mg tablet RxNorm: 729505 Tablet(s) TAKE 2 TABLETS BY MOUTH AT BEDTIME NEEDED 02/26/2016 01/11/2017 Inactive OneTouch Ultra Test strips RxNorm: TEST ONCE DAILY 02/25/2016 08/22/2016 Inactive sucralfate 1 gram tablet RxNorm: 867087 TAKE ONE-HALF TABLET BY MOUTH TWO TIMES A DAY ONE HOUR BEFORE MEALS 01/28/201607/25 Inactive Mirapex 0.5 mg tablet RxNorm: 940307 TAKE ONE TABLET BY MOUTH EVERY NIGHT AT BEDTIME 01/28/2016 06/25/2016 Inactive spironolactone 25 mg tablet RxNorm: 721691 TAKE ONE TABLET BY MOUTH DAILY 01/28/2016 10/23/2016 Inactive Lomotil 2.5 mg-0.025 mg tablet RxNorm: 4746505 1 Tablet(s) PO daily as needed 12/05/2015 01/11/2017 Inactive Klor-Con M20 mEq tablet,extended release RxNorm: 021888 TAKE ONE TABLET BY MOUTH THREE TIMES A DAY 12/05/2015 08/24/2017 Inactive losartan 100 mg tablet RxNorm: 833244 TAKE ONE TABLET BY MOUTH DAILY 11/22/2015 07/27/2016 Inactive amlodipine 5 mg tablet RxNorm: 336170 TAKE ONE TABLET BY MOUTH DAILY 11/13/2015 11/06/2016 Inactive Refill not appropriate clonazepam 0.5 mg tablet RxNorm: 228853 Tablet(s) TAKE 2 TABLETS BY MOUTH AT BEDTIME NEEDED 11/08/2015 01/11/2017 Inactive clonazepam 0.5 mg tablet RxNorm: 261500 Tablet(s) TAKE 2 TABLETS BY MOUTH AT BEDTIME NEEDED 11/02/2015 01/29/2016 Inactive Prozac 40 mg capsule RxNorm: 021273 1 Capsule(s) PO daily 10/3010/24/2016 Inactive pravastatin 80 mg tablet RxNorm: 942036 1 Tablet(s) PO QPM 10/23/2016 Inactive OneTouch Ultra Test strips RxNorm: TEST ONCE DAILY 10/30/2015 01/27/2016 Inactive Imuran 50 mg tablet RxNorm: 930438 1.5 (75) Tablet(s) PO daily 08/17/2015 08/10/2016 Inactive K75.4 clonazepam 0.5 mg tablet RxNorm: 839622 Tablet(s) TAKE 2 TABLETS BY MOUTH AT BEDTIME NEEDED 08/10/2015 01/11/2017 Inactive Imuran 50 mg tablet RxNorm: 052369 1.5 (75) Tablet(s) PO daily 08/10/2015 08/16/2015 Inactive OneTouch Ultra Test strips RxNorm: TEST ONCE DAILY 08/09/2015 10/29/2015 Inactive Vitamin D2 50,000 unit capsule RxNorm: 761741 1 Capsule(s) PO QW 08/07/2015 01/11/2017 Inactive Mirapex 0.5 mg tablet RxNorm: 092513 Tablet(s) TAKE ONE TABLET BY MOUTH EVERY NIGHT AT BEDTIME 07/19/2015 01/14/2016 Inactive Lomotil 2.5 mg-0.025 mg tablet RxNorm: 9348680 1 Tablet(s) PO daily as needed 06/06/2015 01/11/2017 Inactive clonazepam 0.5 mg tablet RxNorm: 710128 Tablet(s) TAKE 2 TABLETS BY MOUTH AT BEDTIME NEEDED 05/10/2015 08/06/2015 Inactive sucralfate 1 gram tablet RxNorm: 607123 TAKE ONE-HALF TABLET BY MOUTH TWO TIMES A DAY ONE HOUR BEFORE MEALS 05/04/201501/26 Inactive meclizine 25 mg tablet RxNorm: 219352 1/2-1 Tablet(s) PO Q6 PRN 03/15/2015 08/24/2017 Inactive spironolactone 25 mg tablet RxNorm: 969363 1 Tablet(s) PO daily 03/14/2015 01/27/2016 Inactive spironolactone 25 mg tablet RxNorm: 608741 1 Tablet(s) PO daily 03/14/2015 03/13/2015 Inactive clonazepam 0.5 mg tablet RxNorm: 672125 TAKE 2 TABLETS BY MOUTH AT BEDTIME NEEDED 02/08/2015 05/02/2015 Inactive folic acid 1 mg tablet RxNorm: 991743 1 Tablet(s) PO daily 02/01/2016 Inactive clonazepam 0.5 mg tablet RxNorm: 108161 TAKE 2 TABLETS BY MOUTH AT BEDTIME NEEDED 02/06/2015 02/08/2015 Inactive amlodipine 10 mg tablet RxNorm: 299392 1/2 Tablet(s) PO daily 02/06/2015 07/18/2015 Inactive this replaces her 5mg pill OneTouch Ultra Test strips RxNorm: TEST ONCE DAILY 01/30/2015 07/28/2015 Inactive Mirapex 0.5 mg tablet RxNorm: 332584 TAKE ONE TABLET BY MOUTH EVERY NIGHT AT BEDTIME 01/29/2015 07/18/2015 Inactive sucralfate 1 gram tablet RxNorm: 128930 TAKE ONE-HALF TABLET BY MOUTH TWO TIMES A DAY ONE HOUR BEFORE MEALS 01/11/201504/10 Inactive OneTouch Ultra Test strips RxNorm: 1 Miscellaneous daily 11/1401/29/2015 Inactive amlodipine 10 mg tablet RxNorm: 902440 1 Tablet(s) PO daily 02/05/2015 Inactive this replaces her 5mg pill clonazepam 0.5 mg tablet RxNorm: 834996 2 Tablet(s) PO QHS 10/201402/05/2015 Inactive sucralfate 1 gram tablet RxNorm: 819317 1/2 Tablet(s) PO BID 1 hour before meal 10/11/2014 01/08/2015 Inactive losartan 100 mg tablet RxNorm: 784381 1 Tablet(s) PO daily 04/201410/05/2015 Inactive amlodipine 5 mg tablet RxNorm: 099535 1 Tablet(s) PO daily 04/201410/30/2014 Inactive Imuran 50 mg tablet RxNorm: 404350 1.5 (75) Tablet(s) PO daily 10/11/2014 08/09/2015 Inactive Lomotil 2.5 mg-0.025 mg tablet RxNorm: 7890726 1 Tablet(s) PO daily as needed 10/11/2014 06/05/2015 Inactive pravastatin 80 mg tablet RxNorm: 449306 1 Tablet(s) PO QPM 04/201410/05/2015 Inactive Klor-Con M20 mEq tablet,extended release RxNorm: 673596 1 Tablet(s) PO TID 10/11/2014 10/05/2015 Inactive Mirapex 0.5 mg tablet RxNorm: 535418 1 Tablet(s) PO QHS 201401/28/2015 Inactive Prozac 40 mg capsule RxNorm: 874170 1 Capsule(s) PO daily 10/1110/05/2015 Inactive Colazal 750 mg capsule RxNorm: 354531 1 Capsule(s) PO TID No Start Date Active Combigan 0.2 %-0.5 % eye drops RxNorm: 960973 1 Drop(s) ophthalmic (eye) BID No Start Date Active Lumigan 0.01 % eye drops RxNorm: 2708375 1 Drop(s) OPH QHS No Start Date Active Prolia 60 mg/mL subcutaneous syringe RxNorm: 782292 1 Milliliter(s) SQ every 6 months No Start Date Active Vitamin D2 50,000 unit capsule RxNorm: 795214 1 Capsule(s) PO QW No Start Date 08/06/2015 Inactive OneTouch Ultra Test strips RxNorm: 1 Miscellaneous daily No Start Date 11/13/2014 Inactive Plavix 75 mg tablet RxNorm: 305210 1 Tablet(s) PO daily No Start Date 06/17/2017 Inactive Lomotil 2.5 mg-0.025 mg tablet RxNorm: 7320535 1 Tablet(s) PO daily as needed No Start Date 10/10/2014 Inactive folic acid 1 mg tablet RxNorm: 433007 1 Tablet(s) PO daily No Start Date 02/06/2015 Inactive amlodipine 5 mg tablet RxNorm: 253596 1 Tablet(s) PO daily No Start Date 10/10/2014 Inactive Imuran 50 mg tablet RxNorm: 338278 1 1/2 (75) Tablet(s) PO daily No Start Date 10/10/2014 Inactive Boniva 3 mg/3 mL intravenous syringe RxNorm: 703230 Milliliter(s) IV No Start Date 07/18/2015 Inactive potassium chloride 20 meq RxNorm: 128473 1 PO TID No Start Date 10/10/2014 Inactive sucralfate 1 gram tablet RxNorm: 475254 1/2 Tablet(s) PO BID 1 hour before meal No Start Date 10/10/2014 Inactive losartan 100 mg tablet RxNorm: 750922 1 Tablet(s) PO daily No Start Date 10/10/2014 Inactive Vitamin D3 2,000 unit tablet RxNorm: 017365 1 Tablet(s) PO daily No Start Date 08/23/2015 Inactive Calcium + D oral RxNorm: 831218 oral No Start Date 08/24/2017 Inactive Prozac 40 mg capsule RxNorm: 332145 1 Capsule(s) PO daily No Start Date 10/10/2014 Inactive timolol 0.5 % eye drops RxNorm: 908381 1 Drop(s) OPH BID No Start Date 12/28/2017 Inactive clonazepam 0.5 mg tablet RxNorm: 119035 2 Tablet(s) PO QHS No Start Date 10/16/2014 Inactive amlodipine 5 mg tablet RxNorm: 827360 1 Tablet(s) PO daily No Start Date 08/22/2015 Inactive pravastatin 80 mg tablet RxNorm: 791389 1 Tablet(s) PO QPM No Start Date 10/10/2014 Inactive Lialda 1.2 gram tablet,delayed release RxNorm: 658414 3 Tablet(s) PO daily No Start Date 07/01/2016 Inactive Alavert 10 mg disintegrating tablet RxNorm: 615892 1 Tablet(s) PO daily as needed No [...] Observation Code Item Item Code Result Date Cbc With Differential Ord2 WBC 5.82 K/ul 02/23/2018 Cbc With Differential Ord2 RBC 4.42 M/ul 02/23/2018 Cbc With Differential Ord2 HGB 14.1 g/dl 02/23/2018 Cbc With Differential Ord2 Neut% 68.6 % 02/23/2018 Cbc With Differential Ord2 HCT 41.5 % 02/23/2018 Cbc With Differential Ord2 MCV 93.9 fl 02/23/2018 Cbc With Differential Ord2 Lymph% 21.3 % 02/23/2018 Cbc With Differential Ord2 MCH 31.9 pg 02/23/2018 Cbc With Differential Ord2 [place]% 8.8 % 02/23/2018 Cbc With Differential Ord2 MCHC 34.0 pg 02/23/2018 Cbc With Differential Ord2 Eos% 1.0 % 02/23/2018 Cbc With Differential Ord2 PLT 199 K/ul 02/23/2018 Cbc With Differential Ord2 Baso% 0.3 % 02/23/2018 Cbc With Differential Ord2 RDW 13.5 % 02/23/2018 Cbc With Differential Ord2 Neut ABS# 3.99 K/ul 02/23/2018 Cbc With Differential Ord2 Lymph ABS# 1.24 K/ul 02/23/2018 Cbc With Differential Ord2 [place] ABS# 0.5 K/ul 02/23/2018 Cbc With Differential Ord2 Eos ABS# 0.1 K/ul 02/23/2018 Cbc With Differential Ord2 Baso ABS# 0.0 K/ul 02/23/2018 Hepatic Sow797 ALBUMIN 4.3 g/dL 01/05/2018 Hepatic Qbo369 TPRO 6.7 g/dL 01/05/2018 Hepatic Hra020 GLOB 2.5 g/dL 01/05/2018 Hepatic Tbb169 A/G Ratio 1.7 Ratio 01/05/2018 Hepatic Zcd363 ALK PHOS 53 U/L 01/05/2018 Hepatic Viw642 ALT(SGPT) 31 U/L 01/05/2018 Hepatic Gps217 AST(SGOT) 44 U/L 01/05/2018 Hepatic Gmy394 BILI T 0.4 mg/dL 01/05/2018 Hepatic Nyb118 BILI D 0.1 mg/dL 01/05/2018 Hepatic Nlk631 BILI I 0.3 mg/dL 01/05/2018 Comp Metabolic Rvc573 NA 133 mEq/L 10/20/2017 Comp Metabolic Wwp231 K 4.1 mEq/L 10/20/2017 Comp Metabolic Vfv489 CL 103 mEq/L 10/20/2017 Comp Metabolic Fwx896 CO2 23.0 mEq/L 10/20/2017 Comp Metabolic Zbs062 ANION GAP 11 10/20/2017 Comp Metabolic Vnc409 GLUCOSE 118 mg/dL 10/20/2017 Comp Metabolic Ojy838 Creat 0.9 mg/dL 10/20/2017 Comp Metabolic Wso103 eGFR 64 ml/min/1.73m2 10/20/2017 Comp Metabolic Pgm462 BUN 14 mg/dL 10/20/2017 Comp Metabolic Cvf606 B/C Ratio 15.2 Ratio 10/20/2017 Comp Metabolic Ouu184 CALCIUM 8.8 mg/dL 10/20/2017 Comp Metabolic Orc528 ALK PHOS 43 U/L 10/20/2017 Comp Metabolic Xfr851 AST(SGOT) 31 U/L 10/20/2017 Comp Metabolic Wbn852 ALT(SGPT) 25 U/L 10/20/2017 Comp Metabolic Lmz582 BILI T 0.4 mg/dL 10/20/2017 Comp Metabolic Ikv150 ALBUMIN 4.1 g/dL 10/20/2017 Comp Metabolic Eoc482 TPRO 6.6 g/dL 10/20/2017 Comp Metabolic Hii725 GLOB 2.5 g/dL 10/20/2017 Comp Metabolic Vae230 A/G Ratio 1.6 Ratio 10/20/2017 Comp Metabolic Stp903 Osmo 268 mOsmo 10/20/2017 Cbc With Differential Ord2 WBC 5.46 K/ul 10/20/2017 Cbc With Differential Ord2 RBC 4.41 M/ul 10/20/2017 Cbc With Differential Ord2 HGB 14.1 g/dl 10/20/2017 Cbc With Differential Ord2 HCT 41.6 % 10/20/2017 Cbc With Differential Ord2 Neut% 69.3 % 10/20/2017 Cbc With Differential Ord2 MCV 94.3 fl 10/20/2017 Cbc With Differential Ord2 Lymph% 21.2 % 10/20/2017 Cbc With Differential Ord2 MCH 32.0 pg 10/20/2017 Cbc With Differential Ord2 [place]% 8.6 % 10/20/2017 Cbc With Differential Ord2 Eos% 0.5 % 10/20/2017 Cbc With Differential Ord2 MCHC 33.9 pg 10/20/2017 Cbc With Differential Ord2 Baso% 0.4 % 10/20/2017 Cbc With Differential Ord2 PLT 209 K/ul 10/20/2017 Cbc With Differential Ord2 Neut ABS# 3.78 K/ul 10/20/2017 Cbc With Differential Ord2 RDW 13.1 % 10/20/2017 Cbc With Differential Ord2 Lymph ABS# 1.16 K/ul 10/20/2017 Cbc With Differential Ord2 [place] ABS# 0.5 K/ul 10/20/2017 Cbc With Differential Ord2 Eos ABS# 0.0 K/ul 10/20/2017 Cbc With Differential Ord2 Baso ABS# 0.0 K/ul 10/20/2017 Sed Rate Ord21 ESR 10 mm/hr 10/20/2017 Vitamin D 25 Oh Owc0006 VITAMIN D, 25 HYDROXY 42.65 ng/mL C-Reactive Protein Qnt Crqnt CRP 0.1 mg/dl 10/20/2017 Sed Rate Ord21 ESR 14 mm/hr 07/21/2017 Vitamin D 25 Oh Uuw6535 VITAMIN D, 25 HYDROXY 31.39 ng/mL Cbc With Differential Ord2 WBC 6.41 K/ul 07/21/2017 Cbc With Differential Ord2 RBC 4.35 M/ul 07/21/2017 Cbc With Differential Ord2 HGB 14.0 g/dl 07/21/2017 Cbc With Differential Ord2 Neut% 70.8 % 07/21/2017 Cbc With Differential Ord2 HCT 41.3 % 07/21/2017 Cbc With Differential Ord2 MCV 94.9 fl 07/21/2017 Cbc With Differential Ord2 Lymph% 18.7 % 07/21/2017 Cbc With Differential Ord2 [place]% 9.7 % 07/21/2017 Cbc With Differential Ord2 MCH 32.2 pg 07/21/2017 Cbc With Differential Ord2 Eos% 0.5 % 07/21/2017 Cbc With Differential Ord2 MCHC 33.9 pg 07/21/2017 Cbc With Differential Ord2 PLT 216 K/ul 07/21/2017 Cbc With Differential Ord2 Baso% 0.3 % 07/21/2017 Cbc With Differential Ord2 RDW 13.3 % 07/21/2017 Cbc With Differential Ord2 Neut ABS# 4.54 K/ul 07/21/2017 Cbc With Differential Ord2 Lymph ABS# 1.20 K/ul 07/21/2017 Cbc With Differential Ord2 [place] ABS# 0.6 K/ul 07/21/2017 Cbc With Differential Ord2 Eos ABS# 0.0 K/ul 07/21/2017 Cbc With Differential Ord2 Baso ABS# 0.0 K/ul 07/21/2017 Comp Metabolic Unb994 NA 135 mEq/L 07/21/2017 Comp Metabolic Gjq756 K 4.5 mEq/L 07/21/2017 Comp Metabolic Poe733 CL 101 mEq/L 07/21/2017 Comp Metabolic Sjx475 CO2 26.0 mEq/L 07/21/2017 Comp Metabolic Exh623 ANION GAP 13 07/21/2017 Comp Metabolic Syb491 GLUCOSE 97 mg/dL 07/21/2017 Comp Metabolic Twt226 Creat 0.9 mg/dL 07/21/2017 Comp Metabolic Msi878 eGFR 66 ml/min/1.73m2 07/21/2017 Comp Metabolic Niz354 BUN 13 mg/dL 07/21/2017 Comp Metabolic Rcc833 B/C Ratio 14.4 Ratio 07/21/2017 Comp Metabolic Ruv930 CALCIUM 9.2 mg/dL 07/21/2017 Comp Metabolic Jmt015 ALK PHOS 46 U/L 07/21/2017 Comp Metabolic Ozh365 AST(SGOT) 31 U/L 07/21/2017 Comp Metabolic Sud769 ALT(SGPT) 19 U/L 07/21/2017 Comp Metabolic Mrv842 BILI T 0.5 mg/dL 07/21/2017 Comp Metabolic Zvh391 ALBUMIN 4.5 g/dL 07/21/2017 Comp Metabolic Hdk626 TPRO 7.2 g/dL 07/21/2017 Comp Metabolic Znp768 GLOB 2.7 g/dL 07/21/2017 Comp Metabolic Jbn417 A/G Ratio 1.7 Ratio 07/21/2017 Comp Metabolic Ugs446 Osmo 270 mOsmo 07/21/2017 C-Reactive Protein Qnt Crqnt CRP 0.1 mg/dl [...] 05/08/2017 Metabolic Ord15 CALCIUM 8.8 mg/dL 05/08/2017 Vitamin D 25 Oh Mhb9532 VITAMIN D, 25 HYDROXY 29.88 ng/mL C-Reactive Protein Qnt Crqnt CRP 0.1 mg/dl 04/14/2017 Cbc With Differential Ord2 WBC 7.45 K/ul 04/14/2017 Cbc With Differential Ord2 RBC 4.20 M/ul 04/14/2017 Cbc With Differential Ord2 HGB 13.4 g/dl 04/14/2017 Cbc With Differential Ord2 HCT 40.3 % 04/14/2017 Cbc With Differential Ord2 Neut% 70.8 % 04/14/2017 Cbc With Differential Ord2 Lymph% 19.7 % 04/14/2017 Cbc With Differential Ord2 MCV 96.0 fl 04/14/2017 Cbc With Differential Ord2 [place]% 9.1 % 04/14/2017 Cbc With Differential Ord2 [...] 1.47 K/ul 04/14/2017 Cbc With Differential Ord2 [place] ABS# 0.7 K/ul 04/14/2017 Cbc With Differential Ord2 Eos ABS# 0.0 K/ul 04/14/2017 Cbc With Differential Ord2 Baso ABS# 0.0 K/ul 04/14/2017 Comp Metabolic Gzq251 NA 136 mEq/L 04/14/2017 Comp Metabolic Wdo480 K 4.4 mEq/L 04/14/2017 Comp Metabolic Aml233 CL 104 mEq/L 04/14/2017 Comp Metabolic Otm311 CO2 21.0 mEq/L 04/14/2017 Comp Metabolic Wgf267 ANION GAP 15 04/14/2017 Comp Metabolic Tkx421 GLUCOSE 112 mg/dL 04/14/2017 Comp Metabolic Syn520 Creat 1.1 mg/dL 04/14/2017 Comp Metabolic Fbt665 eGFR 51 ml/min/1.73m2 04/14/2017 Comp Metabolic Mgf225 BUN 16 mg/dL 04/14/2017 Comp Metabolic Rai938 B/C Ratio 14.3 Ratio 04/14/2017 Comp Metabolic Exu616 CALCIUM 8.9 mg/dL 04/14/2017 Comp Metabolic Brp636 ALK PHOS 39 U/L 04/14/2017 Comp Metabolic Gxl378 AST(SGOT) 24 U/L 04/14/2017 Comp Metabolic Zql854 ALT(SGPT) 18 U/L 04/14/2017 Comp Metabolic Phs158 BILI T 0.5 mg/dL 04/14/2017 Comp Metabolic Fsg814 ALBUMIN 4.3 g/dL 04/14/2017 Comp Metabolic Azs568 TPRO 6.8 g/dL 04/14/2017 Comp Metabolic Gzx273 GLOB 2.5 g/dL 04/14/2017 Comp Metabolic Xpm918 A/G Ratio 1.7 Ratio 04/14/2017 Comp Metabolic Eti786 Osmo 274 mOsmo 04/14/2017 Sed Rate Ord21 ESR 15 mm/hr 04/14/2017 C-Reactive Protein Qnt Crqnt CRP 0.1 mg/dl 02/09/2017 Cbc With Differential Ord2 WBC 7.27 K/ul 02/09/2017 Cbc With Differential Ord2 RBC 4.19 M/ul 02/09/2017 Cbc With Differential Ord2 HGB 13.6 g/dl 02/09/2017 Cbc With Differential Ord2 HCT 39.7 % 02/09/2017 Cbc With Differential Ord2 Neut% 75.8 % 02/09/2017 Cbc With Differential Ord2 MCV 94.7 fl 02/09/2017 Cbc With Differential Ord2 Lymph% 14.6 % 02/09/2017 Cbc With Differential Ord2 MCH 32.5 pg 02/09/2017 Cbc With Differential Ord2 [place]% 8.7 % 02/09/2017 Cbc With Differential Ord2 Eos% 0.6 % 02/09/2017 Cbc With Differential Ord2 MCHC 34.3 pg 02/09/2017 Cbc With Differential Ord2 PLT 221 K/ul 02/09/2017 Cbc With Differential Ord2 Baso% 0.3 % 02/09/2017 Cbc With Differential Ord2 Neut ABS# 5.52 K/ul 02/09/2017 Cbc With Differential Ord2 RDW 13.4 % 02/09/2017 Cbc With Differential Ord2 Lymph ABS# 1.06 K/ul 02/09/2017 Cbc With Differential Ord2 [place] ABS# 0.6 K/ul 02/09/2017 Cbc With Differential Ord2 Eos ABS# 0.0 K/ul 02/09/2017 Cbc With Differential Ord2 Baso ABS# 0.0 K/ul 02/09/2017 Vitamin D 25 Oh Buf6293 VITAMIN D, 25 HYDROXY 36.00 ng/mL Sed Rate Ord21 ESR 16 mm/hr 02/09/2017 Comp Metabolic Vwl597 NA 135 mEq/L 02/09/2017 Comp Metabolic Kzr181 K 4.4 mEq/L 02/09/2017 Comp Metabolic Ucf595 CL 102 mEq/L 02/09/2017 Comp Metabolic Vgn375 CO2 23.0 mEq/L 02/09/2017 Comp Metabolic Iro023 ANION GAP 14 02/09/2017 Comp Metabolic Jrn499 GLUCOSE 98 mg/dL 02/09/2017 Comp Metabolic Nll509 Creat 0.9 mg/dL 02/09/2017 Comp Metabolic Nkl252 eGFR 65 ml/min/1.73m2 02/09/2017 Comp Metabolic Pry510 BUN 18 mg/dL 02/09/2017 Comp Metabolic Nyz321 B/C Ratio 19.8 Ratio 02/09/2017 Comp Metabolic Jpi535 CALCIUM 9.2 mg/dL 02/09/2017 Comp Metabolic Xhj868 ALK PHOS 42 U/L 02/09/2017 Comp Metabolic Lbe247 AST(SGOT) 24 U/L 02/09/2017 Comp Metabolic Azk818 ALT(SGPT) 16 U/L 02/09/2017 Comp Metabolic Tdb720 BILI T 0.4 mg/dL 02/09/2017 Comp Metabolic Hoo935 ALBUMIN 4.4 g/dL 02/09/2017 Comp Metabolic Phl345 TPRO 7.0 g/dL 02/09/2017 Comp Metabolic Jlk632 GLOB 2.6 g/dL 02/09/2017 Comp Metabolic Swp860 A/G Ratio 1.7 Ratio 02/09/2017 Comp Metabolic Lga650 Osmo 272 mOsmo 02/09/2017 %Hba1C Gjh353 % HbA1c 94307-4 6.1 % 05/20/2016 %Hba1C Psh000 Gluc Ave 128 mg/dL 05/20/2016 Lipid Ord30 CHOL 212 mg/dL 05/20/2016 Lipid Ord30 HDL 52.0 mg/dl 05/20/2016 Lipid Ord30 TRIG 149 mg/dL 05/20/2016 Lipid Ord30 LDL 130 mg/dL 05/20/2016 Lipid Ord30 C/HDL 4.1 Ratio 05/20/2016 Sed Rate Ord21 ESR 26 mm/hr 04/21/2016 C-Reactive Protein Qnt Crqnt CRP 0.1 mg/dl 04/21/2016 Comp Metabolic Ali666 NA 134 mEq/L 04/21/2016 Comp Metabolic Kxs051 K 5.0 mEq/L 04/21/2016 Comp Metabolic Yhw335 CL 103 mEq/L 04/21/2016 Comp Metabolic Gef127 CO2 24.0 mEq/L 04/21/2016 Comp Metabolic Zgy577 ANION GAP 12 04/21/2016 Comp Metabolic Als695 GLUCOSE 122 mg/dL 04/21/2016 Comp Metabolic Lhs936 Creat 1.1 mg/dL 04/21/2016 Comp Metabolic Cfy995 eGFR 52 ml/min/1.73m2 04/21/2016 Comp Metabolic Nro836 BUN 24 mg/dL 04/21/2016 Comp Metabolic Afe377 B/C Ratio 21.6 Ratio 04/21/2016 Comp Metabolic Vwg851 CALCIUM 9.7 mg/dL 04/21/2016 Comp Metabolic Wmw090 ALK PHOS 51 U/L 04/21/2016 Comp Metabolic Eer872 AST(SGOT) 23 U/L 04/21/2016 Comp Metabolic Bbb631 ALT(SGPT) 17 U/L 04/21/2016 Comp Metabolic Wlu805 BILI T 0.5 mg/dL 04/21/2016 Comp Metabolic Wic273 ALBUMIN 4.4 g/dL 04/21/2016 Comp Metabolic Hab843 TPRO 7.3 g/dL 04/21/2016 Comp Metabolic Wgq740 GLOB 2.9 g/dL 04/21/2016 Comp Metabolic Jbb909 A/G Ratio 1.5 Ratio 04/21/2016 Comp Metabolic Ahe948 Osmo 274 mOsmo 04/21/2016 Bili D Ord93 BILI D 0.1 [...] 32.0 pg 04/21/2016 Cbc With Differential Ord2 [place]% 9.1 % 04/21/2016 Cbc With Differential Ord2 Eos% 1.1 % 04/21/2016 Cbc With Differential Ord2 MCHC 33.5 pg 04/21/2016 Cbc With Differential Ord2 PLT 190 K/ul 04/21/2016 Cbc With Differential Ord2 Baso% 0.3 % 04/21/2016 Cbc With Differential Ord2 Neut ABS# 4.42 K/ul 04/21/2016 Cbc With Differential Ord2 RDW 13.3 % 04/21/2016 Cbc With Differential Ord2 Lymph ABS# 1.39 K/ul 04/21/2016 Cbc With Differential Ord2 [place] ABS# 0.6 K/ul 04/21/2016 Cbc With Differential Ord2 Eos ABS# 0.1 K/ul 04/21/2016 Cbc With Differential Ord2 Baso ABS# 0.0 K/ul 04/21/2016 Vitamin D 25 Oh Ahv8019 VITAMIN D, 25 HYDROXY 51.65 ng/mL Comp Metabolic Pdo140 NA 133 mEq/L 03/18/2016 Comp Metabolic Hxo720 K 4.9 mEq/L 03/18/2016 Comp Metabolic Bfm359 CL 102 mEq/L 03/18/2016 Comp Metabolic Agt935 CO2 25.0 mEq/L 03/18/2016 Comp Metabolic Mzy978 ANION GAP 11 03/18/2016 Comp Metabolic Bii216 GLUCOSE 114 mg/dL 03/18/2016 Comp Metabolic Dhg297 Creat 1.1 mg/dL 03/18/2016 Comp Metabolic Wnb719 eGFR 54 ml/min/1.73m2 03/18/2016 Comp Metabolic Gkc193 BUN 23 mg/dL 03/18/2016 Comp Metabolic Rdm154 B/C Ratio 21.3 Ratio 03/18/2016 Comp Metabolic Zzn145 CALCIUM 9.7 mg/dL 03/18/2016 Comp Metabolic Khe420 ALK PHOS 54 U/L 03/18/2016 Comp Metabolic Fjs843 AST(SGOT) 21 U/L 03/18/2016 Comp Metabolic Dbt578 ALT(SGPT) 15 U/L 03/18/2016 Comp Metabolic Gud472 BILI T 0.4 mg/dL 03/18/2016 Comp Metabolic Afa278 ALBUMIN 4.4 g/dL 03/18/2016 Comp Metabolic Sxo430 TPRO 7.4 g/dL 03/18/2016 Comp Metabolic Ucp758 GLOB 3.0 g/dL 03/18/2016 Comp Metabolic Pvy890 A/G Ratio 1.5 Ratio 03/18/2016 Comp Metabolic Wib810 Osmo 271 mOsmo 03/18/2016 Vitamin D 25 Oh Bun3067 VITAMIN D, 25 HYDROXY 46.10 ng/mL Sed Rate Ord21 ESR 26 mm/hr 02/13/2016 Cbc With Differential Ord2 WBC 6.31 K/ul 02/13/2016 Cbc With Differential Ord2 RBC 4.31 M/ul 02/13/2016 Cbc With Differential Ord2 HGB 13.6 g/dl 02/13/2016 Cbc With Differential Ord2 HCT 40.3 % 02/13/2016 Cbc With Differential Ord2 Neut% 70.7 % 02/13/2016 Cbc With Differential Ord2 MCV 93.5 fl 02/13/2016 Cbc With Differential Ord2 Lymph% 18.5 % 02/13/2016 Cbc With Differential Ord2 [place]% 9.7 % 02/13/2016 Cbc With Differential Ord2 [...] 1.17 K/ul 02/13/2016 Cbc With Differential Ord2 [place] ABS# 0.6 K/ul 02/13/2016 Cbc With Differential Ord2 Eos ABS# 0.1 K/ul 02/13/2016 Cbc With Differential Ord2 Baso ABS# 0.0 K/ul 02/13/2016 C-Reactive Protein Qnt Crqnt CRP 0.1 mg/dl 02/13/2016 Comp Metabolic Kty123 NA 133 mEq/L 02/13/2016 Comp Metabolic Wus355 K 4.8 mEq/L 02/13/2016 Comp Metabolic Lah984 CL 104 mEq/L 02/13/2016 Comp Metabolic Ygo461 CO2 23.0 mEq/L 02/13/2016 Comp Metabolic Pfr949 ANION GAP 11 02/13/2016 Comp Metabolic Zxb236 GLUCOSE 104 mg/dL 02/13/2016 Comp Metabolic Alx120 Creat 1.0 mg/dL 02/13/2016 Comp Metabolic Crx711 eGFR 56 ml/min/1.73m2 02/13/2016 Comp Metabolic Rfl780 BUN 25 mg/dL 02/13/2016 Comp Metabolic Tyq130 B/C Ratio 24.0 Ratio 02/13/2016 Comp Metabolic Ihb447 CALCIUM 9.1 mg/dL 02/13/2016 Comp Metabolic Dvb759 ALK PHOS 43 U/L 02/13/2016 Comp Metabolic Pej323 AST(SGOT) 21 U/L 02/13/2016 Comp Metabolic Zvy725 ALT(SGPT) 17 U/L 02/13/2016 Comp Metabolic Amp257 BILI T 0.4 mg/dL 02/13/2016 Comp Metabolic Nkj056 ALBUMIN 4.3 g/dL 02/13/2016 Comp Metabolic Hfr023 TPRO 7.1 g/dL 02/13/2016 Comp Metabolic Ngt844 GLOB 2.9 g/dL 02/13/2016 Comp Metabolic Fen324 A/G Ratio 1.5 Ratio 02/13/2016 Comp Metabolic Ofr674 Osmo 271 mOsmo 02/13/2016 Comp Metabolic Swh017 NA 132 mEq/L 10/08/2015 Comp Metabolic Ljh607 K 4.7 mEq/L 10/08/2015 Comp Metabolic Ppb984 CL 101 mEq/L 10/08/2015 Comp Metabolic Ckk206 CO2 24.0 mEq/L 10/08/2015 Comp Metabolic Tpi880 ANION GAP 12 10/08/2015 Comp Metabolic Tak552 GLUCOSE 85 mg/dL 10/08/2015 Comp Metabolic Bti452 Creat 0.9 mg/dL 10/08/2015 Comp Metabolic Ost479 eGFR 66 ml/min/1.73m2 10/08/2015 Comp Metabolic Jdr806 BUN 29 mg/dL 10/08/2015 Comp Metabolic Zng775 B/C Ratio 32.2 Ratio 10/08/2015 Comp Metabolic Ysg124 CALCIUM 9.1 mg/dL 10/08/2015 Comp Metabolic Hzf574 ALK PHOS 40 U/L 10/08/2015 Comp Metabolic Iyr706 AST(SGOT) 18 U/L 10/08/2015 Comp Metabolic Rja028 ALT(SGPT) 14 U/L 10/08/2015 Comp Metabolic Kbv923 BILI T 0.3 mg/dL 10/08/2015 Comp Metabolic Uje247 ALBUMIN 4.1 g/dL 10/08/2015 Comp Metabolic Spi060 TPRO 6.8 g/dL 10/08/2015 Comp Metabolic Pri489 GLOB 2.7 g/dL 10/08/2015 Comp Metabolic Czu050 A/G Ratio 1.5 Ratio 10/08/2015 Comp Metabolic Qnp201 Osmo 270 mOsmo 10/08/2015 Cbc With Differential Ord2 WBC 7.45 K/ul 10/08/2015 Cbc With Differential Ord2 RBC 3.98 M/ul 10/08/2015 Cbc With Differential Ord2 HGB 12.5 g/dl 10/08/2015 Cbc With Differential Ord2 HCT 38.2 % 10/08/2015 Cbc With Differential Ord2 Neut% 72.2 % 10/08/2015 Cbc With Differential Ord2 Lymph% 16.6 % 10/08/2015 Cbc With Differential Ord2 MCV 96.0 fl 10/08/2015 Cbc With Differential Ord2 [place]% 10.5 % 10/08/2015 Cbc With Differential Ord2 MCH 31.4 pg 10/08/2015 Cbc With Differential Ord2 Eos% 0.4 % 10/08/2015 Cbc With Differential Ord2 MCHC 32.7 pg 10/08/2015 Cbc With Differential Ord2 Baso% 0.3 % 10/08/2015 Cbc With Differential Ord2 PLT 189 K/ul 10/08/2015 Cbc With Differential Ord2 Neut ABS# 5.38 K/ul 10/08/2015 Cbc With Differential Ord2 RDW 13.2 % 10/08/2015 Cbc With Differential Ord2 Lymph ABS# 1.24 K/ul 10/08/2015 Cbc With Differential Ord2 [place] ABS# 0.8 K/ul 10/08/2015 Cbc With Differential Ord2 Eos ABS# 0.0 K/ul 10/08/2015 Cbc With Differential Ord2 Baso ABS# 0.0 K/ul 10/08/2015 Sed Rate Ord21 ESR 20 mm/hr 10/08/2015 C-Reactive Protein Qnt Crqnt CRP 1.0 mg/dl 10/08/2015 Vitamin D 25 Oh Zlt4980 VITAMIN D, 25 HYDROXY 54.28 ng/mL Free T4 Lxm604 FREE T4 0.80 ng/dL 09/26/2015 Tsh Ord6 hTSH II 1.72 uIU/mL 09/26/2015 C-Reactive Protein Qnt Crqnt CRP 0.00 mg/dl 08/06/2015 Vitamin D 25 Oh Qzt7514 VITAMIN D, 25 HYDROXY 36.25 ng/mL Cbc [...] 94.2 fl 08/06/2015 Cbc With Differential Ord2 [place]% 8.9 % 08/06/2015 Cbc With Differential Ord2 MCH 31.7 pg 08/06/2015 Cbc With Differential Ord2 Eos% 0.6 % 08/06/2015 Cbc With Differential Ord2 MCHC 33.6 pg 08/06/2015 Cbc With Differential Ord2 Baso% 0.2 % 08/06/2015 Cbc With Differential Ord2 PLT 216 K/ul 08/06/2015 Cbc With Differential Ord2 Neut ABS# 4.48 K/ul 08/06/2015 Cbc With Differential Ord2 RDW 13.6 % 08/06/2015 Cbc With Differential Ord2 Lymph ABS# 1.31 K/ul 08/06/2015 Cbc With Differential Ord2 [place] ABS# 0.6 K/ul 08/06/2015 Cbc With Differential Ord2 Eos ABS# 0.0 K/ul 08/06/2015 Cbc With Differential Ord2 Baso ABS# 0.0 K/ul 08/06/2015 Cbc With Differential Ord2 New Analyzer Notice Please note new ref ranges starting 04-25-2015 due to implemntation of new five part differential hematolgy analyzer. 08/06/2015 Sed Rate Ord21 ESR 17 mm/hr 08/06/2015 Comp Metabolic Heq109 NA 133 mEq/L 08/06/2015 Comp Metabolic Bvh456 K 4.6 mEq/L 08/06/2015 Comp Metabolic Sfb234 CL 102 mEq/L 08/06/2015 Comp Metabolic Odr344 CO2 24.0 mEq/L 08/06/2015 Comp Metabolic Uin853 ANION GAP 12 08/06/2015 Comp Metabolic Ynr228 GLUCOSE 105 mg/dL 08/06/2015 Comp Metabolic Dem679 Creat 1.0 mg/dL 08/06/2015 Comp Metabolic Jzz659 eGFR 60 ml/min/1.73m2 08/06/2015 Comp Metabolic Jjq906 BUN 28 mg/dL 08/06/2015 Comp Metabolic Bez754 B/C Ratio 28.6 Ratio 08/06/2015 Comp Metabolic Ecg756 CALCIUM 9.2 mg/dL 08/06/2015 Comp Metabolic Xvf550 ALK PHOS 42 U/L 08/06/2015 Comp Metabolic Maw569 AST(SGOT) 20 U/L 08/06/2015 Comp Metabolic Iyy411 ALT(SGPT) 16 U/L 08/06/2015 Comp Metabolic Kah473 BILI T 0.3 mg/dL 08/06/2015 Comp Metabolic Vuk360 ALBUMIN 4.3 g/dL 08/06/2015 Comp Metabolic Pcc628 TPRO 6.9 g/dL 08/06/2015 Comp Metabolic Zek779 GLOB 2.7 g/dL 08/06/2015 Comp Metabolic Txc973 A/G Ratio 1.6 Ratio 08/06/2015 Comp Metabolic Phg115 Osmo 272 mOsmo 08/06/2015 Bili D Ord93 BILI D 0.1 mg/dL 04/04/2015 Bili D Ord93 BILI I 0.4 mg/dL 04/04/2015 C-Reactive Protein Qnt Crqnt CRP 0.00 mg/dl 04/04/2015 Comp Metabolic Unk660 NA 132 mEq/L 04/04/2015 Comp Metabolic Ozx239 K 4.6 mEq/L 04/04/2015 Comp Metabolic Skd416 CL 100 mEq/L 04/04/2015 Comp Metabolic Spe740 CO2 22.0 mEq/L 04/04/2015 Comp Metabolic Qat751 ANION GAP 15 04/04/2015 Comp Metabolic Hrg465 GLUCOSE 118 mg/dL 04/04/2015 Comp Metabolic Vlp647 Creat 1.0 mg/dL 04/04/2015 Comp Metabolic Tgk445 eGFR 60 ml/min/1.73m2 04/04/2015 Comp Metabolic Xvb503 BUN 18 mg/dL 04/04/2015 Comp Metabolic Huu952 B/C Ratio 18.4 Ratio 04/04/2015 Comp Metabolic Uji535 CALCIUM 9.6 mg/dL 04/04/2015 Comp Metabolic Tcx458 ALK PHOS 63 U/L 04/04/2015 Comp Metabolic Jwu454 AST(SGOT) 17 U/L 04/04/2015 Comp Metabolic Bxn787 ALT(SGPT) 13 U/L 04/04/2015 Comp Metabolic Udg725 BILI T 0.5 mg/dL 04/04/2015 Comp Metabolic Eln530 ALBUMIN 4.6 g/dL 04/04/2015 Comp Metabolic Plz888 TPRO 7.4 g/dL 04/04/2015 Comp Metabolic Dzl238 GLOB 2.8 g/dL 04/04/2015 Comp Metabolic Njz367 A/G Ratio 1.6 Ratio 04/04/2015 Comp Metabolic Tyf096 Osmo 268 mOsmo 04/04/2015 Sed Rate Ord21 ESR 16 mm/hr 04/04/2015 Cbc With Differential Ord2 WBC 5.1 [...] With Differential Ord2 RDW 13.0 % 04/04/2015 Vitamin D 25 Oh Auu3680 VITAMIN D, 25 HYDROXY 47.62 ng/mL %Hba1C Som247 % HbA1c 99178-5 5.7 % 04/04/2015 %Hba1C Hxy011 Gluc Ave 117 mg/dL 04/04/2015 Lipid Ord30 CHOL 214 mg/dL 04/04/2015 Lipid Ord30 HDL 61.0 mg/dl 04/04/2015 Lipid Ord30 TRIG 155 mg/dL 04/04/2015 Lipid Ord30 LDL 122 mg/dL 04/04/2015 Lipid Ord30 C/HDL 3.5 Ratio 04/04/2015 %Hba1C Hbm842 % HbA1c 85710-3 5.9 % 11/28/2014 %Hba1C Yhu438 Gluc Ave 123 mg/dL 11/28/2014 Sed Rate [...] Metabolic Ord15 CALCIUM 9.7 mg/dL 11/27/2014 Hepatic Fvb756 ALBUMIN 4.4 g/dL 11/27/2014 Hepatic Riq184 TPRO 7.0 g/dL 11/27/2014 Hepatic Lqy290 GLOB 2.6 g/dL 11/27/2014 Hepatic Lql389 A/G Ratio 1.7 Ratio 11/27/2014 Hepatic Efm095 ALK PHOS 63 U/L 11/27/2014 Hepatic Ylm236 ALT(SGPT) 14 U/L 11/27/2014 Hepatic Kzu893 AST(SGOT) 19 U/L 11/27/2014 Hepatic Ztg604 BILI T 0.4 mg/dL 11/27/2014 Hepatic Ifx904 BILI D 0.1 mg/dL 11/27/2014 Hepatic Yub184 BILI I 0.3 mg/dL 11/27/2014 Review of [...] dentition 01/12/2018 None Full Exam - General 1995 Ears/Nose/Throat oral cavity/pharynx/larynx Overall: oral mucosa clear 01/12/2018 None Full Exam - General 1995 Ears/Nose/Throat oral cavity/pharynx/larynx Overall: oropharyngeal mucosa clear 01/12/2018 None Full Exam - General 1994 Ears/Nose/Throat oral cavity/pharynx/larynx Overall: hypopharynx benign 01/12/2018 None Full Exam - General 1994 Ears/Nose/Throat oral cavity/pharynx/larynx Overall: no masses 01/12/2018 [...] sounds 05/20/2016 None Full Exam - General 1995 Lymphatic neck nodes Overall: anterior cervical chain [...] Formatting Model/CDA Sections, Assigned to/Tabitha Velasquez CPT-4: [id number] 12/29/2017 PPPS, SUBSEQ VISIT CPT -4: G0439 09/17/2017 PPPS, SUBSEQ VISIT CPT -4: G0439 08/21/2016 PNEUMOCOCCAL VACC [address]: 12570251 CPT-4: 97439 02/20/2016 ADMIN PNEUMOCOCCAL VACCINE SNOMED CT: 29004626 CPT-4: G0009 02/20/2016 ADMIN INFLUENZA VIRUS VAC CPT-4: G0008 01/23/2016 FLU VACC 4 KATIE 3 YRS PLUS IM SNOMED CT: 81387014 CPT-4: 40299 01/23/2016 PPPS, SUBSEQ VISIT CPT -4: G0439 07/19/2015 Vital Signs Date Vital 01/12/2018 Blood Pressure 1: 124/70 Code : 8480-6 BMI: 30.2 Code : 52154-8 Heart Rate 1 : 59 bpm Height: 5'1" SpO2: 98% Weight: 160 lbs 12/29/2017 Blood Pressure 1: 148/82 Code : 8480-6 BMI: 30.4 Code : 39516-1 Heart Rate 1 : 60 bpm Height: 5'1" SpO2: 99% Weight: 161 lbs 09/17/2017 Height: Weight: 08/25/2017 Blood Pressure 1: 130/72 Code : 8480-6 BMI: 29.9 Code : 07181-1 Heart Rate 1 : 70 bpm Height: 5'1" SpO2: 93% Weight: 158 lbs 07/21/2017 Blood Pressure 1: 150/84 Code : 8480-6 BMI: 29.5 Code : 97629-7 Heart Rate 1 : 62 bpm Height: 5'1" SpO2: 98% Weight: 156 lbs 06/17/2017 Blood Pressure 1: 148/86 Code : 8480-6 BMI: 29.5 Code : 35023-7 Heart Rate 1 : 64 bpm Height: 5'1" SpO2: 98% Weight: 156 lbs 02/17/2017 Blood Pressure 1: 144/86 Code : 8480-6 BMI: 28.7 Code : 98957-6 Heart Rate 1 : 64 bpm Height: 5'1" SpO2: 96% Weight: 152 lbs 01/02/2017 Blood Pressure 1: 132/78 Code : 8480-6 BMI: 28.3 Code : 27656-8 Heart Rate 1 : 71 bpm Height: 5'1" SpO2: 97% Weight: 150 lbs 12/05/2016 Blood Pressure 1: 140/76 Code : 8480-6 BMI: 29.5 Code : 45285-8 Heart Rate 1 : 66 bpm Height: 5'1" SpO2: 98% Weight: 156 lbs 08/21/2016 Blood Pressure 1: 142/78 Code : 8480-6 BMI: 29.9 Code : 48899-9 Heart Rate 1 : 62 bpm Height: 5'1" SpO2: 98% Waist Measure (cm): 79 cm Weight: 158 lbs 08/19/2016 Blood Pressure 1: 142/78 Code : 8480-6 BMI: 29.9 Code : 63714-7 Heart Rate 1 : 62 bpm Height: 5'1" SpO2: 98% Weight: 158 lbs 05/20/2016 Blood Pressure 1: 152/76 Code : 8480-6 Blood Pressure 1: 144/80 Code: 8480-6 BMI: 29.3 Code: 46698-6 Heart Rate 1: 60 bpm Height: 5'1" SpO2: 95% Weight: 155 lbs 01/23/2016 Blood Pressure 1: 138/78 Code : 8480-6 BMI: 29.7 Code : 79337-0 Heart Rate 1 : 64 bpm Height: 5'1" SpO2: 98% Weight: 157 lbs 09/26/2015 Blood Pressure 1: 136/76 Code : 8480-6 BMI: 28.3 Code : 27587-3 Heart Rate 1 : 70 bpm Height: 5'1" SpO2: 98% Weight: 150 lbs 08/23/2015 Blood Pressure 1: 126/78 Code : 8480-6 BMI: 27.8 Code : 87220-1 Heart Rate 1 : 68 bpm Height: 5'1" SpO2: 97% Weight: 147 lbs 07/19/2015 Blood Pressure 1: 146/70 Code : 8480-6 BMI: 26.8 Code : 07804-4 Heart Rate 1 : 58 bpm Height: 5'1" SpO2: 96% Waist Measure (cm): 84 cm Weight: 142 lbs 04/17/2015 Blood Pressure 1: 132/62 Code : 8480-6 BMI: 25.3 Code : 10333-1 Heart Rate 1 : 98 bpm Height: 5'1" SpO2: 97% Weight: 134 lbs 03/15/2015 Blood Pressure 1: 160/70 Code : 8480-6 Blood Pressure 1: 158/72 Code: 8480-6 BMI: 25.5 Code: 80944-4 Heart Rate 1: 72 bpm Heart Rate 1: 74 bpm Height: 5'1" Height: SpO2: 98% Weight: Weight: 135 lbs 02/06/2015 Blood Pressure 1: 142/82 Code : 8480-6 BMI: 25.5 Code : 83434-6 Heart Rate 1 : 82 bpm Height: 5'1" SpO2: 96% Weight: 135 lbs 12/13/2014 Blood Pressure 1: 136/64 Code : 8480-6 BMI: 24.9 Code : 63631-0 Heart Rate 1 : 86 bpm Height: 5'1" SpO2: 95% Weight: 132 lbs 10/11/2014 Blood Pressure 1: 140/80 Code : 8480-6 BMI: 25.1 Code : 66167-7 Heart Rate 1 : 72 bpm Height: [...] chronic fatigue syndrome- sees Jaswant Brooks in diabetes mellitus Quality NIDDM 12/13/2014 None diabetes [...] chronic fatigue syndrome- sees Jaswant Brooks in hypertension Quality intermittent 10/11/2014 None hypertension Blood [...] Present Encounters Encounter Performer Location Codes Date ([id number]) [id number] EST. PATIENT, LEVEL III Diagnosis: Essential (primary) hypertension[ICD10: I10] Diagnosis: Type 2 diabetes mellitus without complications[ICD10: E11.9] Diagnosis: Encounter for immunization[ICD10: Z23] Diagnosis: Muscle weakness (generalized)[ICD10: M62.81] [facility] CPT-4: 68921 01/12/2018 ([id number]) 27739 EST. PATIENT, LEVEL IV Diagnosis: Essential (primary) hypertension[ICD10: I10] Diagnosis: Type 2 diabetes mellitus without complications[ICD10: E11.9] Diagnosis: Encounter for immunization[ICD10: Z23] Diagnosis: Muscle weakness (generalized)[ICD10: M62.81] [facility] CPT-4: 76501 12/29/2017 ([id number]) 62967 EST. PATIENT, LEVEL IV Diagnosis: Essential (primary) hypertension[ICD10: I10] Diagnosis: Muscle weakness (generalized)[ICD10: M62.81] Diagnosis: 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 artery[ICD10: I66.01 ] [facility] CPT-4: 14872 08/25/2017 ([id number]) 43180 EST. PATIENT, LEVEL IV Diagnosis: Essential (primary) hypertension[ICD10: I10] Diagnosis: 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 artery[ICD10: I66.01 ] Maria Luisa Echeverria MD [facility] CPT-4: 74423 07/21/2017 ([id number]) 28562 EST. PATIENT, LEVEL IV Diagnosis: Essential (primary) hypertension[ICD10: I10] Diagnosis: Type 2 diabetes mellitus without complications[ICD10: E11.9] Diagnosis: 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 artery[ICD10: I66.01 ] Maria Luisa Echeverria MD [facility] CPT-4: 59383 06/17/2017 ([id number]) 79043 EST. PATIENT, LEVEL IV Diagnosis: Essential (primary) hypertension[ICD10: I10] Diagnosis: Muscle weakness (generalized)[ICD10: M62.81] Diagnosis: Mixed hyperlipidemia[ICD10: E78.2] Maria Luisa Echeverria MD [facility] CPT-4: 39258 02/17/2017 ([id number]) 74036 EST. PATIENT, LEVEL III Diagnosis: Essential (primary) hypertension[ICD10: I10] Diagnosis: Muscle weakness (generalized)[ICD10: M62.81] Diamond Echeverria MD [facility] CPT-4: 56305 01/02/2017 ([id number]) 14967 EST. PATIENT, LEVEL IV Diagnosis: Muscle weakness (generalized)[ICD10: M62.81] Diagnosis: Cerebral infarction, unspecified[ICD10: I63.9] Diagnosis: Essential (primary) hypertension[ICD10: I10] Diagnosis: Gastro-esophageal reflux disease without esophagitis[ICD10: K21.9] Diagnosis: Allergic rhinitis due to pollen[ICD10: J30.1] Diamond Echeverria MD [facility] CPT-4: 63452 12/05/2016 ([id number]) 19657 EST. PATIENT, LEVEL IV Diagnosis: Essential (primary) hypertension[ICD10: I10] Diagnosis: Type 2 diabetes mellitus without complications[ICD10: E11.9] Maria Luisa Echeverria MD [facility] CPT-4: 43960 08/19/2016 21921 EST. PATIENT, LEVEL IV Diagnosis: Essential (primary) hypertension[ICD10: I10] Diagnosis: Type 2 diabetes mellitus without complications[ICD10: E11.9] Diagnosis: Mixed hyperlipidemia[ICD10: E78.2] Ashley Echeverria MD, [facility] CPT-4: 78425 05/20/2016 ([id number]) 14271 EST. PATIENT, LEVEL IV Diagnosis: Type 2 diabetes mellitus without complications[ICD10: E11.9] Diagnosis: Family history of other endocrine, nutritional and metabolic diseases [ICD10: Z83.49] Diagnosis: Other fatigue[ICD10: R53.83] Diagnosis: Abnormal weight gain[ICD10: R63.5] Diagnosis: Actinic keratosis[ICD10: L57.0] Maria Luisa Echeverria MD, [facility] CPT- 4: 28262 01/23/2016 ([id number]) 19417 EST. PATIENT, LEVEL IV Diagnosis: Family history of other endocrine, nutritional and metabolic diseases [ICD10: Z83.49] Diagnosis: Other fatigue[ICD10: R53.83] Diagnosis: Abnormal weight gain[ICD10: R63.5] Diagnosis: Actinic keratosis[ICD10: L57.0] Diagnosis: Type 2 diabetes mellitus without complications[ICD10: E11.9] Maria Luisa Echeverria MD, [facility] CPT-4: 32692 09/26/2015 ([id number]) 90162 EST. PATIENT, LEVEL IV Diagnosis: Essential (primary) hypertension[ICD10: I10] Diagnosis: Type 2 diabetes mellitus without complications[ICD10: E11.9] Diagnosis: Other depressive episodes[ICD10: F32.8] Diagnosis: Vitamin D deficiency, unspecified[ICD10: E55.9] Maria Luisa Echeverria MD, [facility] CPT-4: 27278 08/23/2015 ([id number]) 65833 EST. PATIENT, LEVEL IV Diagnosis: Essential (primary) hypertension[ICD10: I10] Diagnosis: Benign paroxysmal vertigo, unspecified ear[ICD10: H81.10] Diagnosis: Type 2 diabetes mellitus without complications[ICD10: E11.9] Maria Luisa Echeverria MD, [facility] CPT-4: 21908 04/17/2015 ([id number]) 88760 EST. PATIENT, LEVEL III Diagnosis: Essential (primary) hypertension[ICD10: I10] Diagnosis: Benign paroxysmal vertigo, unspecified ear[ICD10: H81.10] Diamond Echeverria MD , [facility] CPT-4: 67469 03/15/2015 ([id number]) 59486 EST. PATIENT, LEVEL III Diagnosis: Essential (primary) hypertension[ICD10: I10] Diagnosis: Edema, unspecified[ICD10: R60.9] Diamond Echeverria MD, [facility] CPT-4: 66864 02/06/2015 ([id number]) 33116 EST. PATIENT, LEVEL IV Diagnosis: ESSENTIAL HYPERTENSION[ICD9: 401.9] Diagnosis: HYPERLIPIDEMIA[ICD9: 272.4] Diagnosis: DEPRESSIVE DISORDER NEC[ICD9: 311] Diagnosis: ESOPHAGEAL REFLUX[ICD9: 530.81] Diagnosis: RESTLESS LEGS SYNDROME[ICD9: 333.94] Maria Luisa Echeverria MD, [facility] CPT-4: 41933 12/13/2014 ([id number]) OFFICE VISIT, NEW - LEVEL 4 Diagnosis: ESSENTIAL HYPERTENSION[ICD9: 401.9] Diagnosis: HYPERLIPIDEMIA[ICD9: 272.4] Diagnosis: DEPRESSIVE DISORDER NEC[ICD9: 311] Diagnosis: ESOPHAGEAL REFLUX[ICD9: 530.81] Diagnosis: RESTLESS LEGS SYNDROME[ICD9: 333.94] Maria Luisa Echeverria MD, [facility] CPT-4: 56523 10/11/2014 Plan of Care Planned Activity Notes Codes Status Date Visit Plan: Hypertension - improved control - continue with current medications, continue with no added salt diet. Pt has been encouraged to exercise daily. The pt has been advised to call the office if there are any acute concerns about change in blood pressure readings at home. 01/12/2018 Appointment: Maria Luisa Echeverria WPtel: [address] [place], [place] [phone] (15 min) Moderate 01/12/2018 Patient Education: Patient [...] today due to autoimmune deficiency 12/29/2017 Appointment: [facility] [phone] [facility] (15 min) Moderate 12/29/2017 Patient Education: Patient [...] 08/25/2017 Appointment: [facility] [phone] [facility] (15 min) Moderate 08/25/2017 Patient Education: Patient [...] stroke - appt with neurology with Dr. Macraio at Neurology. - we had attempted to set this up - for the second time - apparently called her Dtr-In-Law - who informed them to call her - but she never got a phone call about the appointment and she would like it to be rescheduled. We will call again about scheduling her for an appt with Dr. Macario. Gait instability - continue with therapy. 07/21/2017 Appointment: Maria Luisa Echeverria WPtel: [facility] (15 min) Moderate 07/21/2017 Patient Education: Patient Medication Summary Completed 07/21/2017 Visit Plan: Right Middle Cerebral artery stroke - appt with neurology with Dr. Macario at Neurology. Gait instability - appt with [facility] physical therapy Hypertension - stable - continue with current treatment - monitor symptoms DM - diet controlled - 06/17/2017 Appointment: Maria Luisa Echeverria WPtel: [facility] (15 min) Moderate 06/17/2017 Patient Education: Patient [...] Maria Luisa Echeverria WPtel: [facility] (15 min) Moderate 02/17/2017 Patient Education: Patient Medication Summary Completed 02/17/2017 Care Plan: Referral Order SNOMED-CT : [id number] Pending 02/17/2017 Visit Plan: Hypertension - well controlled - continue with current medications, continue with no added salt diet. Pt has been encouraged to exercise daily. The pt has been advised to call the office if there are any acute concerns about change in blood pressure readings at home. Weakness-recent stroke-strength improving-no changes 01/02/2017 Appointment: Diamond Sawyer WPtel: [facility] [place] [phone] (30 min) Complex 01/02/2017 Patient Education: Patient Medication Summary Completed 01/02/2017 Visit Plan: Hypertension - well controlled - continue with current medications, continue with no added salt diet. Pt has been encouraged to exercise daily. The pt has been advised to call the office if there are any acute concerns about change in blood pressure readings at home. Generalized weakness-gait pyuhqfvjhks-MSD-fwlrfxgk PT-patient to use 4 wheeled walker GERD- dysphagia-refer for speech eval-start pepcid twice daily Allergies-chronic- restart allergy pill as directed 12/05/2016 Appointment: Diamond Sawyer WPtel: [phone] (15 min) Moderate 12/05/2016 Patient Education: Patient [...] surrogate. 08/21/2016 Appointment: Ashley Woot[facility] [phone] [facility] [facility] - Annual Wellness Visit 08/21/2016 Patient [...] 08/19/2016 Appointment: [facility]verria [facility] [phone] [facility] (15 min) Moderate 08/19/2016 Patient Education: Patient [...] to medications. 05/20/2016 Appointment: [facility] [address] [facility] (15 min) Moderate 05/20/2016 Patient Education: Patient [...] TODAY 01/23/2016 Appointment: [facility]verria [facility] [phone] [facility] (15 min) Moderate 01/23/2016 Patient Education: Patient [...] Maria Luisa Echeverria WPtel: [facility] (15 min) Moderate 09/26/2015 Patient Education: Patient [...] Maria Luisa Echeverria WPtel[facility] (15 min) Moderate 08/22/2015 Appointment: Maria Luisa Echeverria WPtel: [address] [place], [place] [id number] (15 min) Moderate 08/15/2015 Visit Plan: Medicare [...] paperwork for health care surrogate. 07/19/2015 Appointment: [facility] - Annual Wellness Visit 07/19/2015 Patient Education: [...] Maria Luisa Echeverria WPtel: [facility] (15 min) Moderate 04/17/2015 Patient Education: Patient [...] medications. 12/13/2014 Appointment: Maria Luisa Echeverria WPtel: [facility] [id number] (15 min) Moderate 12/13/2014 Patient Education: Patient [...] Maria Luisa Echeverria WPtel: [facility] [place] [place] ([place] New Patient 10/11/2014 Appointment: Maria Luisa Echeverria WPtel: [facility] [place] [place] (15 min) Moderate 10/11/2014 Patient Education: Patient Medication Summary Completed 10/11/2014 Patient Education: Hypertension Completed 10/11/2014 Referral: Lizz Andujar Referral Completed Instructions Comment . Hypertension - well controlled - continue [...] to assure normal liver response to medications. change the time of the losartan to [...] pressure readings at home. FLU SHOT TODAY stop AMLODIPINE - due to swelling in [...] continue with supplementation as previously directed. . Right Middle Cerebral artery stroke - appt with neurology with Dr. Macario at Neurology. Gait instability - appt with outpt physical therapy Hypertension - stable - continue with current treatment - monitor symptoms DM - diet controlled - . Hypertension - improved control - continue with current medications, continue with no added salt diet. Pt has been encouraged to exercise daily. The pt has been advised to call the office if there are any acute concerns about change in blood pressure readings at home. 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 Hypertension - well controlled - continue [...] to assure normal liver response to medications. START SPIRONOLACTONE 25MG DAILY CONTINUE AMLODIPINE 5MG [...] readings are starting to become less controlled. . Diabetes Mellitus - controlled - per [...] pressure readings at home. . Hypertension - uncontrolled - the patient's [...] - for the second time - apparently called her Dtr-In-Law - who informed them to call her - but she never got a phone call about the appointment and she would like it to be rescheduled. We will call again about scheduling her for an appt with Dr. Macario. Gait instability - continue with therapy. DECREASE SODIUM/SALT INTAKE COMPRESSION STOCKINGS INCREASE WATER [...] to reduce peripheral edema. . Hypertension - well controlled - continue [...] own rather than going to physical therapy. PEPCID 20MG TWICE DAILY OK TO RESTART ALLERGY PILL SPEECH THERAPY TO EVALUATE AND TREAT . Hypertension - well controlled - continue with current medications, continue with no added salt diet. Pt has been encouraged to exercise daily. The pt has been advised to call the office if there are any acute concerns about change in blood pressure readings at home. Generalized weakness-gait jstawjexkdw-TRV-utzpbpib PT-patient to use 4 wheeled walker MQWT-owiydwimm-nuokn for speech eval-start pepcid twice daily Rjxksbonw-yilkmyy-outveum allergy pill as directed . Medicare Exam - today we discussed [...]
--- OUTSIDE RECORDS SUMMARY | 2018-04-05 17:32 | XMS REPORT | Continuity of Care Document ---
Author Author [facility] Organization [facility] Address Unknown Phone Unavailable Allergies Active Description Code Type Severity Reaction Onset Reported/Identified Relationship to Patient Clinical Status Yes latex [id number] Drug Allergy Unknown N/A 05/16/2005 Yes Sulfa (Sulfonamide Antibiotics) [id number] Drug Allergy Unknown N/A 2005 Yes No Allergy Information Available [id number] Drug Allergy Unknown N/A 2016 Medications There [...] MD Ot H40.9 UNSPECIFIED GLAUCOMA 11/21/2016 CHRISTINE LUNYD MD Ot I10 ESSENTIAL (PRIMARY) HYPERTENSION 11/21/2016 [...] AND CEREB INFRC W 12/04/2016 LILIAN DOBSON FILLING AND STAPLING MACHINE OPERATOR Ot I63.9 CEREBRAL INFARCTION, UNSPECIFIED 12/08/2016 LILIAN DOBSON FILLING AND STAPLING MACHINE OPERATOR Ot I63.9 CEREBRAL INFARCTION, UNSPECIFIED 01/10/2017 LILIAN DOBSON FILLING AND STAPLING MACHINE OPERATOR Ot 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 01/10/2017 LILIAN DOBSONP Ot K21.9 GASTRO-ESOPHAGEAL REFLUX DISEASE WITHOUT 01/14/2017 LILIAN DOBSON FILLING AND STAPLING MACHINE OPERATOR Ot I63.9 CEREBRAL INFARCTION, UNSPECIFIED 02/13/2017 LILIAN DOBSON FILLING AND STAPLING MACHINE OPERATOR Ot I63.9 CEREBRAL INFARCTION, UNSPECIFIED 03/23/2017 [...] HEART DIS AND OTH DI 04/09/2017 IVAN ABH MD Ot Z88.2 ALLERGY STATUS TO SULFONAMIDES [...] LEHMAN MD, Ot R51 HEADACHE 05/27/2017 STEPHANE LEHMAN MD, Ot R53.82 CHRONIC FATIGUE, UNSPECIFIED 05/27/2017 STEPHANE LEHMAN MD Ot W19.XXXA UNSPECIFIED FALL, INITIAL ENCOUNTER 05/27/2017 FALLON KANG, STEPHANE Sheikh Ot Y92.[address] [facility]PR[facility] 05/27/2017 STEPHANE LEHMAN MD Ot Z79.02 JAIL (CURRENT) USE OF ANTITHROMBOTI 05/27/2017 STEPHANE LEHMAN MD Ot Z79.82 JAIL (CURRENT) USE OF ASPIRIN 05/27/2017 STEPHANE LEHMAN [...] OF DIS OF THE BLD/BLD-FORM 10/08/2017 MELOTABITHA CATALOGUE ILLUSTRATOR Ot Z86.73 PRSNL HX OF TIA (TIA), [...] FOR OTHER PREPROCEDURAL EXAMIN 10/16/2017 TABITHA ALEJO CATALOGUE ILLUSTRATOR Ot Z86.2 PRSNL HISTORY OF DIS OF THE BLD/BLD-FORM 10/16/2017 TABITHA ALEJO CATALOGUE ILLUSTRATOR Ot Z86.73 PRSNL HX OF TIA (TIA), AND CEREB INFRC W 10/16/2017 TABITHA ALEJO APRN Ot 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 MECHANISM 10/16/2017 TABITHA ALEJO CATALOGUE ILLUSTRATOR Ot I63.9 CEREBRAL INFARCTION, UNSPECIFIED 10/19/2017 TABITHA ALEJO APRN Ot 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 MECHANISM 10/19/2017 TABITHA ALEJO APRN Ot I63.9 CEREBRAL INFARCTION, UNSPECIFIED 10/27/2017 TABITHA LAEJO APRN Ot Z01.818 ENCOUNTER FOR OTHER PREPROCEDURAL [...] TYPE 2 DIABETES MELLITUS WITHOUT COMPLIC 11/04/2017 CHRISTINE LUNDY MD Ot I69.351 HEMIPLGA FOLLOWING CEREBRAL INFRC AFF RI 11/04/2017 CHRISTINE LUNDY MD Ot M32.9 SYSTEMIC LUPUS ERYTHEMATOSUS, UNSPECIFIE 11/19/2017 CHRISTINE LUNDY MD Ot E11.9 TYPE 2 DIABETES MELLITUS WITHOUT COMPLIC 11/19/2017 CHRISTINE LUNDY MD Ot I69.351 HEMIPLGA FOLLOWING CEREBRAL INFRC AFF RI 11/19/2017 CHRISTINE LUNDY MD Ot M32.9 SYSTEMIC LUPUS ERYTHEMATOSUS, UNSPECIFIE 12/23/2017 ZENAIDA NUR MD Ot E11.65 TYPE 2 DIABETES MELLITUS WITH HYPERGLYCE 12/23/2017 ZENAIDA NUR MD Ot F41.9 ANXIETY DISORDER, UNSPECIFIED 12/23/2017 ZENAIDA NUR MD Ot I10 ESSENTIAL (PRIMARY) HYPERTENSION 12/23/2017 ZENAIDA NUR MD Ot I48.91 UNSPECIFIED ATRIAL FIBRILLATION 12/23/2017 ZENAIDA NUR MD Ot K21.9 GASTRO-ESOPHAGEAL REFLUX DISEASE WITHOUT 12/23/2017 ZENAIDA NUR MD Ot R21 RASH AND OTHER NONSPECIFIC SKIN ERUPTION 12/23/2017 ZENAIDA NUR MD Ot Z79.02 OPERATIONS DIRECTOR (CURRENT) USE OF ANTITHROMBOTI 12/23/2017 ZENAIDA NUR MD Ot Z79.82 JAIL (CURRENT) USE OF ASPIRIN 12/23/2017 ZENAIDA NUR MD Ot Z86.73 PRSNL HX OF TIA (TIA), AND CEREB INFRC W 12/23/2017 ZENAIDA NUR MD Ot Z87.19 PERSONAL HISTORY OF OTHER DISEASES OF TH 12/23/2017 ZENAIDA NUR MD Ot Z88.2 ALLERGY STATUS TO SULFONAMIDES STATUS 12/23/2017 ZENAIDA NUR MD Ot Z90.710 ACQUIRED ABSENCE OF BOTH CERVIX AND UTER 12/23/2017 ZENAIDA NUR MD Ot Z91.040 LATEX ALLERGY STATUS 12/23/2017 ZENAIDA NUR MD Ot Z95.5 PRESENCE OF CORONARY ANGIOPLASTY IMPLANT 12/25/2017 ZENAIDA NUR MD Ot E11.65 TYPE 2 DIABETES MELLITUS WITH HYPERGLYCE 12/25/2017 ZENAIDA NUR MD Ot F41.9 ANXIETY DISORDER, UNSPECIFIED 12/25/2017 ZENAIDA NUR MD Ot I10 ESSENTIAL (PRIMARY) HYPERTENSION 12/25/2017 ZENAIDA NRU MD Ot I48.91 UNSPECIFIED ATRIAL FIBRILLATION 12/25/2017 ZENAIDA NUR MD Ot K21.9 GASTRO-ESOPHAGEAL REFLUX DISEASE WITHOUT 12/25/2017 ZENAIDA NUR MD Ot R21 RASH AND OTHER NONSPECIFIC SKIN ERUPTION 12/25/2017 ZENAIDA NUR MD Ot Z79.02 JAIL (CURRENT) USE OF ANTITHROMBOTI 12/25/2017 ZENAIDA NUR MD Ot Z79.82 JAIL (CURRENT) USE OF ASPIRIN 12/25/2017 ZENAIDA NUR MD Ot Z86.73 PRSNL HX OF TIA (TIA), AND CEREB INFRC W 12/25/2017 ZENAIDA NUR MD Ot Z87.19 PERSONAL HISTORY OF OTHER DISEASES OF TH 12/25/2017 ZENAIDA NUR MD Ot Z88.2 ALLERGY STATUS TO SULFONAMIDES STATUS 12/25/2017 ZENAIDA NUR MD Ot Z90.710 ACQUIRED ABSENCE OF BOTH CERVIX AND UTER 12/25/2017 ZENAIDA NUR MD Ot Z91.040 LATEX ALLERGY STATUS 12/25/2017 ZENAIDA NUR MD Ot Z95.5 PRESENCE OF CORONARY ANGIOPLASTY IMPLANT 12/29/2017 ZENAIDA NUR MD Ot E11.65 TYPE 2 DIABETES MELLITUS WITH HYPERGLYCE 12/29/2017 ZENAIDA NUR MD Ot F41.9 ANXIETY DISORDER, UNSPECIFIED 12/29/2017 ZENAIDA NUR MD Ot I10 ESSENTIAL (PRIMARY) HYPERTENSION 12/29/2017 ZENAIDA NUR MD Ot I48.91 UNSPECIFIED ATRIAL FIBRILLATION 12/29/2017 ZENAIDA NUR MD Ot K21.9 GASTRO-ESOPHAGEAL REFLUX DISEASE WITHOUT 12/29/2017 ZENAIDA NUR MD Ot R21 RASH AND OTHER NONSPECIFIC SKIN ERUPTION 12/29/2017 ZENAIDA NRU MD Ot Z79.02 OPERATIONS DIRECTOR (CURRENT) USE OF ANTITHROMBOTI 12/29/2017 ZENAIDA NUR MD Ot Z79.82 JAIL (CURRENT) USE OF ASPIRIN 12/29/2017 ZENAIDA NUR MD Ot Z86.73 PRSNL HX OF TIA (TIA), AND CEREB INFRC W 12/29/2017 ZENAIDA NUR MD Ot Z87.19 PERSONAL HISTORY OF OTHER DISEASES OF TH 12/29/2017 ZENAIDA NUR MD Ot Z88.2 ALLERGY STATUS TO SULFONAMIDES STATUS 12/29/2017 ZENAIDA NUR MD Ot Z90.710 ACQUIRED ABSENCE OF BOTH CERVIX AND UTER 12/29/2017 ZENAIDA NUR MD Ot Z91.040 LATEX ALLERGY STATUS 12/29/2017 ZENAIDA NUR MD Ot Z95.5 PRESENCE OF CORONARY ANGIOPLASTY IMPLANT Procedures There is no data. Results Test [...] Status Pt. Type Provider Facility Loc./Unit Complaint [id number] 12/23/2017 10:53:00 12/23/2017 11:50:00 DIS Emergency BOOM KANG, ZENAIDA Gimenez [facility] ER ALLERGIC REACTION [id number] 11/09/2017 09:57:00 11/09/2017 23:59:59 CLS Outpatient CHRISTINE LUNDY MD [facility] REHAB UPPER AND LOWER EXT WEAKNESS; HX OF STROKE [id number] 10/16/2017 12:35:00 10/16/2017 15:45:00 DIS Outpatient TABITHA ALEJO APRN [facility] MULTIPLE CRYPTOGENIC STROKES [id number] 10/07/2017 08:31:00 10/07/2017 23:59:59 CLS Outpatient TABITHA ALEJO APRN [facility] RAD HX STROKE,AUTO IMMUNE [id number] 05/24/2017 12:30:00 05/27/2017 15:15:00 DIS Inpatient FALLON KANG, STEPHANE Sheikh [facility] 4TH POSS CVA/TIA [id number] 02/25/2017 08:36:00 02/25/2017 23:59:59 CLS Outpatient IVAN BAH MD [facility] CATH CRYPTOGENIC CVA [id number] 02/13/2017 13:30:00 02/13/2017 15:33:00 DIS Outpatient LILIAN DOBSON [facility] REHAB CVA;REFLUX, DYSPHAGIA POST STROKE [id number] 01/07/2017 09:56:00 01/10/2017 00:01:00 DIS Outpatient LILIAN DOBSON [facility] REHAB CVA;REFLUX, DYSPHAGIA POST STROKE [id number] 11/20/2016 09:52:00 11/21/2016 11:20:00 DIS Inpatient CHRISTINE LUNDY MD [facility] 4TH AMS [id number] 06/04/2016 14:24:00 06/04/2016 23:59:59 CLS Outpatient TABITHA ALEJO APRN [facility] RAD SCREENING [id number] 03/29/2015 12:47:00 03/29/2015 23:59:59 CLS Outpatient LILIAN DOBSON [facility] RAD ROUTINE SCREENING [id number] 03/31/2014 13:56:00 03/31/2014 23:59:59 CLS Outpatient MIRIAN ARNOLD MD [facility] RAD HTN,SYNCOPE,VERTIGO, SCREENING [id number] 03/28/2013 08:54:00 03/28/2013 23:59:59 CLS Outpatient MIRIAN ARNOLD MD [facility] RAD SCREENING [id number] 05/04/2012 08:32:00 Document Registration [id number] 03/10/2012 09:19:00 Document Registration [id number] 04/08/2011 06:10:00 Document Registration [id number] 03/03/2011 00:00:00 Document Registration [id number] 02/17/2011 08:47:00 Document Registration [id number] 01/20/2011 00:00:00 Document Registration [id number] 12/03/2010 10:49:00 Document Registration [id number] 11/26/2010 08:55:00 Document Registration [id number] 10/22/2010 10:15:00 Document Registration [id number] 02/28/2010 05:38:00 Document Registration [id number] 02/25/2010 09:09:00 Document Registration [id number] 02/12/2010 09:01:00 Document Registration [id number] 02/11/2010 07:52:00 Document Registration [id number] 02/05/2010 08:40:00 Document Registration
[2018-04-05] MEDS ORDERED: CATHETER FLUSH 10 ML SYR IV PRN (18:15)
[2018-04-05] MEDS: CATHETER FLUSH 10 ML SYR IV SCH (21:20)
[2018-04-05] MEDS: CARVEDILOL 3.125 MG (COREG) TABLET PO SCH (21:20)
[2018-04-05] MEDS ORDERED: NON-FORMULARY MEDICATION 1 EA EA (Famotidine (Pepcid) 20 MG) PO PRN (22:30)
[2018-04-05] MEDS ORDERED: FAMOTIDINE 20 MG (PEPCID) TABLET PO PRN (23:15)
[2018-04-06] VITALS (9 sets, daily range): BP systolic 91–154; BP diastolic 53–93
[2018-04-06 04:14] LABS: CHOLESTEROL 206 MG/DL (< 200); HDL CHOLESTEROL 64 MG/DL (40-60); TRIGLYCERIDES 70 MG/DL (<150); VLDL CHOLESTEROL 14 MG/DL (5-40)
[2018-04-06] MEDS: CATHETER FLUSH 10 ML SYR IV SCH ×2 (06:18→13:58)
[2018-04-06] MEDS: CARVEDILOL 3.125 MG (COREG) TABLET PO SCH (08:17)
[2018-04-06] MEDS ORDERED: FLUoxetine HCL 20 MG (PROzac) CAP PO SCH (09:00)
[2018-04-06] MEDS ORDERED: TIMOLOL MALEATE 0.5% 5 ML (TIMOPTIC) BTL OU SCH (09:00)
[2018-04-06] MEDS ORDERED: CLOPIDOGREL 75 MG (PLAVIX) TABLET PO SCH (09:00)
[2018-04-06] MEDS ORDERED: ASPIRIN E.C. 81 MG (ECOTRIN) TAB PO SCH (09:00)
[2018-04-06] MEDS ORDERED: NON-FORMULARY MEDICATION 1 EA EA (Fluoxetine HCl 40 MG) PO SCH (09:00)
[2018-04-06] MEDS ORDERED: LOSARTAN 100 MG (COZAAR) TABLET PO SCH ×2 (09:00→21:00)
--- NOTE | 2018-04-06 10:22 | Short Stay Summary-Hospitalist ---
History of Present Illness HPI/Chief Complaint This is a 72-year-old white female well known to me. She presents to the emergency room after having had her right side feel weak and she fell down. She also felt like her head was in a vice. She had no nausea or vomiting. She presented to the emergency room with similar complaints and was found to be severely hypertensive. It was found that she had a little bit of weakness on the right side but she said this was subjectively improving. CT confirmed an old stroke in the past that was unchanged. Dr. Mayberry felt that TPA was not indicated at this time as the patient was improving and the blood pressure was out of control. The patient was given hydralazine to see if the blood pressure could be decreased but the patient then had a left great deal of flushing with that and felt like she was out of her body. She was then given Benadryl and Solu-Medrol with resolution of the flushing but then was unstable and unsteady and felt that she could not go home. Because of the lability of blood pressure she was admitted for observation overnight. This morning at the time of my interview she is almost completely back to her baseline and feels like perhaps she is subjectively just a little bit weaker than she had been. Her blood pressure has been stable overnight. Source: patient Exam Limitations: no limitations Date Seen 04/06/18 Time Seen by a Provider: 09:00 Attending Physician Karla Truong MD PCP Christine Echeverria MD Referring Physician Date of Admission Apr 05, 2018 at 16:57 Home Medications & Allergies Home Medications Reviewed patient Home Medication Reconciliation performed by pharmacy medication reconciliations structured cabling technician and/or nursing. Patients Allergies have been reviewed. Allergies Allergies Coded Allergies Sulfa (Sulfonamide Antibiotics) (Verified Allergy, Unknown, 04/05/18) latex (Verified Allergy, Unknown, 04/05/18) Past Jxpednj-Dpdurm-Gnjoyx Hx Past Med/Social Hx: Reviewed Nursing Past Med/Soc Hx Patient Social History Marrital Status: Employed/Student: retired Alcohol Use: Denies Use Recreational Drug Use: No Smoking Status: Never a Smoker 2nd Hand Smoke Exposure: No Physical Abuse Screen: No Sexual Abuse: No Recent Foreign Travel: No Contact w/other who traveled: No Recent Hopitalizations: No Recent Infectious Disease Expo: No Immunizations Up To Date Tetanus Booster (TDap): Unknown Date of Pneumonia Vaccine: Jan 11, 2017 Date of Influenza Vaccine: Dec 12, 2017 Seasonal Allergies Seasonal Allergies: No Past Medical History Surgeries: Breast, Hysterectomy, Lumpectomy Currently Using CPAP: No Currently Using BIPAP: No Cardiac: Atrial Fibrillation, Hypertension Neurological: Stroke, TIA Reproductive: No Sexually Transmitted Disease: No Female Reproductive Disorders: Denies Gastrointestinal: Colitis, Gastroesophageal Reflux, Liver Disease/Jaundice, Hemorrhoids Musculoskeletal: Arthritis Endocrine: Diabetes, Non-Insulin dep, Lupus Are Your Blood Sugars Over 250: No HEENT: Cataract, Glaucoma Loss of Vision: Bilateral Hearing Impairment: Denies Psychosocial: Anxiety History of Blood Disorders: No Adverse Reaction to Blood Adame: No Family History Completed stroke G8 BROTHER G8 SISTER Hypertension 19 MOTHER Neoplasm G8 BROTHER (colon cancer) Hypertension Review of Systems Constitutional: weakness EENTM: vision loss (From glaucoma) Respiratory: no symptoms reported Cardiovascular: no symptoms reported Gastrointestinal: no symptoms reported Genitourinary: no symptoms reported Musculoskeletal: muscle weakness (Right side), neck pain Skin: rash (Flushing of face) Physical Exam Physical Exam Vital Signs Vital Signs - First Documented 04/05/18 12:31 Temp 97.7 Pulse 62 Resp 17 B/P (MAP) 207/100 (135) Pulse Ox 100 O2 Delivery Room Air Capillary Refill : Less Than 3 Seconds Height, Weight, BMI Height: 5'1.00" Weight: 161lbs. 2.0oz. 73.295799ph; 30.2 BMI Method:Stated General Appearance: No Apparent Distress, WD/WN HEENT: Other (Pupils poorly reactive) Neck: Limited Range of Motion Respiratory: Chest Non Tender, Lungs Clear, Normal Breath Sounds, No Accessory Muscle Use, No Respiratory Distress Cardiovascular: Regular Rate, Rhythm, No Edema, No Gallop, No Murmur, Normal Peripheral Pulses Gastrointestinal: Normal Bowel Sounds, No Organomegaly, Non Tender, Soft Rectal: Deferred Back: Normal Inspection, No CVA Tenderness, No Vertebral Tenderness Extremity: Normal Inspection, Normal Range of Motion, No Pedal Edema Neurologic/Psychiatric: Alert, Oriented x3, No Motor/Sensory Deficits, summer law associate II- XII Norm as Tested, Depressed Affect Skin: Normal Color, Warm/Dry Results Results/Procedures Labs Laboratory Tests 04/05/18 13:07 Patient resulted labs reviewed. Imaging: Reviewed Imaging Report Short Stay Diagnosis Discharge Diagnosis-Short Stay Admission Diagnosis Hypertensive urgency Previous CVA with exacerbation previous symptoms secondary to hypertension resolved History of A. fib-currently in sinus Allergic reaction to hydralazine Final Discharge Diagnosis Hypertensive urgency Previous CVA with temporary exacerbation of symptoms resolved History of A. fib in sinus Conclusion Plan Plan is to continue to monitor her blood pressure throughout the day and then discharge her later this afternoon. Pressures been stable and I will probably not change any of her blood pressure medicines at this time as she has been on Coreg and Benicar as of outpatient with good control. Clinical Quality Measures DVT/VTE Risk/Contraindication: Risk Factor Score Per Nursin RFS Level Per Nursing on Admit: 4+=Very High Stroke: Date of last known well: Apr 05, 2018 Time of last known well: 12:49 Symptoms onset unknown: Yes Copy Copies To 1: CHRISTINE ECHEVERRIA MD, KATHLEEN M MD Apr 06, 2018 10:22
[2018-04-06] MEDS ORDERED: FOLIC ACID 1 MG TAB PO SCH (12:00)
[2018-04-06] MEDS ORDERED: clonazePAM 0.5 MG (KlonoPIN) TAB PO SCH (21:00)
[2018-04-06] MEDS ORDERED: LATANOPROST 0.005% (XALATAN) OPHTH SOLN 2.5 ML OU SCH (21:00)
[2018-04-06] MEDS ORDERED: NON-FORMULARY MEDICATION 1 EA EA (Bimatoprost (Lumigan) 1 DROP) OU SCH (21:00)
[2018-04-06] MEDS ORDERED: MESALAMINE 1.2 GM PO SCH (21:00)
[2018-04-06] MEDS ORDERED: PRAMIPEXOLE DI HCL 0.5 MG PO SCH (21:00)
[2018-04-06] MEDS ORDERED: ATORVASTATIN 20 MG (LIPITOR) TABLET PO SCH (21:00)
[2018-04-06] MEDS ORDERED: PRAMIPEXOLE 0.5 MG TAB (MIRAPEX) PO SCH (21:00)
[2018-04-06] MEDS ORDERED: NON-FORMULARY MEDICATION 1 EA EA (Pravastatin Sodium 80 MG) PO SCH (21:00)
== END 2018-04-06 10:33 | disposition home or self-care (01) ==
LOC: EDUNIT# 12:30 → ER 12:31 → UNDOADMOB 16:57 → ICU 16:57 → UNDODISOB 04-06 18:00
PROVIDERS: ADMIT Internal Medicine; ATTEND Internal Medicine
DX: I16.0 Hypertensive urgency (principal); G81.91 Hemiplegia, unspecified affecting right dominant side; I48.91 Unspecified atrial fibrillation; E11.9 Type 2 diabetes mellitus without complications; K21.9 Gastro-esophageal reflux disease without esophagitis; F41.9 Anxiety disorder, unspecified; R53.82 Chronic fatigue, unspecified; R23.2 Flushing; T46.5X5A Adverse effect of other antihypertensive drugs, initial encounter; Z86.73 Personal history of transient ischemic attack (TIA), and cerebral infarction without residual deficits; Z79.82 Long term (current) use of aspirin; Z79.899 Other long term (current) drug therapy
CPT/HCPCS: 36415; 51702; 70450; 71045; 80053; 80061; 81000; 82962; 84484; 85025; 85379; 85610; 85730; 93041

== ENCOUNTER → 2018-06-17 | Outpatient (CLI) | payer MEDICARE ==
[~2018-06-17] MED LIST changes: +LOSA100T57 PO; -LOSA100T8 PO
== END ==
LOC: CARD 10:42
PROVIDERS: ATTEND Physician Assistant
DX: I63.9 Cerebral infarction, unspecified (principal); I10 Essential (primary) hypertension; E78.2 Mixed hyperlipidemia; E66.9 Obesity, unspecified; I08.0 Rheumatic disorders of both mitral and aortic valves
CPT/HCPCS: 93306

== ENCOUNTER 2018-07-02 14:06 | Emergency (ER) | payer MEDICARE ==
[~2018-07-02] VITALS: Ht 165.1 cm; Wt 77.1 kg
--- OUTSIDE RECORDS SUMMARY | 2018-07-02 14:12 | XMS REPORT | Clinical Summary ---
Author Author [facility] Organization [facility] Address Unknown Phone Unavailable Care Team Providers Care Mine Utility Operator Name Role Phone PCP Unavailable Allergies Not [...]
--- OUTSIDE RECORDS SUMMARY | 2018-07-02 14:12 | XMS REPORT | Clinical Summary ---
Author Author [facility] Organization [facility] Address Unknown Phone Unavailable Care Team Providers Care Mill Hand Name Role Phone Maria Luisa Echeverria MD PCP Source Comments Some departments are not documenting in the electronic medical record. If you do not see the information that you expected, contact Release of Information in the Health Information Management department at [phone] for further assistance in locating additional records.[facility] Allergies Comments Active Allergy Reactions Severity Noted [...] as 0 TOUCH ULTRA BONUS PACK directed. [facility]) Active pravastatin (PRAVACHOL) Take 80 mg by [...] or Plavix. There is no evidence for fpc dual antiplatelet therapy for stroke - Agree with cardiology evaluation and recommend to continue with Linq, implantable surveillance system monitor - Recommend Lumbar puncture to evaluate for any autoimmune or inflammatory process. Would check CSF cell count, glucose, and protein. Could on additional test if results are abnormal. If there is evidence of an autoimmune process she will need to follow up with her special police officer. - Consider repeat CTA neck to [...] Not on filefrom Last 3 Months Insurance Type Payer Benefit Subscriber ID Effective Phone Address Plan / Dates Group Medicare MEDICARE MEDICARE xxxxxxxxxx 1995- PART A AND Present B Medicare BCBS [place] [employer] xxxxxxxxxxxx 2017-P SUPPLEMENT resent Advance Directives Patient has advance care planning documents on file. For more information, please contact: [facility] [address] [place] [address]
--- OUTSIDE RECORDS SUMMARY | 2018-07-02 14:16 | XMS REPORT | CCD ---
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 Name Role Phone PP Unavailable CCM Unavailable Summary Purpose Interface Exchange Insurance Providers Payer name Policy type / Coverage type Covered constitution party ID Effective Begin Date Effective End Date WPS Medicare Part B Medicare Part B [id number] 2017 Unknown [facility] Medicare Part B [id number] Unknown Family history Mother Diagnosis Age At [...] Unknown 3 10/11/[address]: 662892471 Never smoker 10/11/[address]: 667240025 Never drinks alcohol 10/11/2014 Allergies, Adverse Reactions, Alerts Substance Reaction Codes Entered Date Inactivated Date Status Latex Unknown 10/11/2014 No Inactive Date Active HYDRALAZINE hives Unknown 04/19/2018 No Inactive Date Active SULFA(SULFONAMIDE ANTIBIOTICS) Unknown 10/11/2014 No Inactive Date Active THIAZIDE-RELATED- BENZHYDRAZIDES Unknown 10/11/2014 No Inactive Date Active Past Medical History Illness Codes Condition Status Onset Date Resolved Date Essential (primary) hypertension ICD-9: 401.1 ICD-10: I10 Active 08/25/2017 Unknown Muscle weakness (generalized) ICD-9: 728.87 ICD-10: M62.81 Active 12/05/2016 Unknown Type 2 diabetes mellitus without complications ICD-9: 250.00 ICD-10: E11.9 Active 01/22/2016 Unknown Encounter for immunization ICD-9: V03.82 ICD-10: Z23 Active 02/19/2016 Unknown Encounter for general adult medical examination [...] Dates Condition Status Essential (primary) hypertension ICD-9: 401.1 ICD-10: I10 08/25/2017 Active Muscle weakness (generalized) ICD-9: 728.87 ICD-10: M62.81 12/05/2016 Active Type 2 diabetes mellitus without complications ICD-9: 250.00 ICD-10: E11.9 01/22/2016 Active Encounter for immunization ICD-9: V03.82 ICD-10: Z23 02/19/2016 Active Encounter for general adult medical examination [...] Start Date Stop Date Status Fill Instructions Prozac 40 mg capsule RxNorm: 733077 TAKE ONE CAPSULE BY MOUTH DAILY 06/25/2018 03/21/2019 Active losartan 100 mg tablet RxNorm: 417127 Tablet(s) TAKE ONE TABLET BY MOUTH DAILY 05/25/2018 05/19/2019 Active Mirapex 0.5 mg tablet RxNorm: 345047 TAKE ONE TABLET BY MOUTH EVERY NIGHT AT BEDTIME 05/25/2018 01/19/2019 Active Coreg 3.125 mg tablet RxNorm: 820706 1 Tablet(s) QAM 05/11/2018 10/07/2018 Active Lomotil 2.5 mg-0.025 mg tablet RxNorm: 8701565 1 Tablet(s) PO daily as needed 05/11/2018 11/04/2018 Active Plavix 75 mg tablet RxNorm: 353278 TAKE ONE TABLET BY MOUTH DAILY 04/26/2018 12/21/2018 Active Request already responded to by other means (e.g. phone or fax) clonazepam 0.5 mg tablet RxNorm: 851501 Tablet(s) TAKE 2 TABLETS BY MOUTH AT BEDTIME NEEDED 04/19/2018 07/17/2018 Active Plavix 75 mg tablet RxNorm: 942360 Tablet(s) TAKE ONE TABLET BY MOUTH DAILY 04/19/2018 04/25/2018 Inactive Coreg 3.125 mg tablet RxNorm: 603600 TAKE ONE-HALF TABLET BY MOUTH TWICE A DAY 04/19/2018 05/10/2018 Inactive Dabble DBuch Ultra Test strips RxNorm: TEST 1 TIME DAILY 201804/08/2019 Active Benicar 40 mg tablet RxNorm: 122510 1 Tablet(s) PO daily 201707/23/2018 Active This replaces losartan Benicar 40 mg tablet RxNorm: 545089 1 Tablet(s) PO daily 201702/23/2018 Inactive This replaces losartan clonazepam 0.5 mg tablet RxNorm: 307700 Tablet(s) TAKE 2 TABLETS BY MOUTH AT BEDTIME NEEDED 01/20/2018 04/18/2018 Inactive Coreg 3.125 mg tablet RxNorm: 906358 1/2 Tablet(s) PO BID 201704/18/2018 Inactive Mirapex 0.5 mg tablet RxNorm: 234241 TAKE ONE TABLET BY MOUTH EVERY NIGHT AT BEDTIME 12/21/2017 05/19/2018 Inactive folic acid 1 mg tablet RxNorm: 626482 TAKE ONE TABLET BY MOUTH DAILY 12/11/2017 12/05/2018 Active Plavix 75 mg tablet RxNorm: 164212 TAKE ONE TABLET BY MOUTH DAILY 12/11/2017 04/18/2018 Inactive Aspirin Low Dose 81 mg tablet,delayed release RxNorm: 264095 TAKE ONE TABLET BY MOUTH DAILY 11/24/2017 12/28/2017 Inactive Request already responded to by other means (e.g. phone or fax) Aspirin Low Dose 81 mg tablet,delayed release RxNorm: 367718 1 Tablet(s) PO daily 11/18/2017 11/17/2017 Inactive Aspirin Low Dose 81 mg tablet,delayed release RxNorm: 798332 1 Tablet(s) PO daily 11/18/2017 11/23/2017 Inactive clonazepam 0.5 mg tablet RxNorm: 613961 Tablet(s) TAKE 2 TABLETS BY MOUTH AT BEDTIME NEEDED 10/23/2017 04/18/2018 Inactive Lomotil 2.5 mg-0.025 mg tablet RxNorm: 2865755 1 Tablet(s) PO daily as needed 09/28/2017 03/25/2018 Inactive pravastatin 80 mg tablet RxNorm: 405167 TAKE ONE TABLET BY MOUTH EVERY EVENING 08/19/2017 11/11/2018 Active clonazepam 0.5 mg tablet RxNorm: 404274 Tablet(s) TAKE 2 TABLETS BY MOUTH AT BEDTIME NEEDED 07/24/2017 10/20/2017 Inactive Mirapex 0.5 mg tablet RxNorm: 443574 TAKE ONE TABLET BY MOUTH EVERY NIGHT AT BEDTIME 07/23/2017 12/19/2017 Inactive Vitamin D2 50,000 unit capsule RxNorm: 219095 1 Capsule(s) PO QW 07/22/2017 07/21/2017 Inactive Vitamin D2 50,000 unit capsule RxNorm: 543456 1 Capsule(s) PO QW 07/22/2017 10/19/2017 Inactive amlodipine 5 mg tablet RxNorm: 874672 1 Tablet(s) PO daily 01/201812/28/2017 Inactive Refill not appropriate Prozac 40 mg capsule RxNorm: 617222 TAKE ONE CAPSULE BY MOUTH DAILY 06/24/2017 06/18/2018 Inactive Plavix 75 mg tablet RxNorm: 958404 TAKE ONE TABLET BY MOUTH DAILY 06/18/2017 12/10/2017 Inactive Lomotil 2.5 mg-0.025 mg tablet RxNorm: 6293136 1 Tablet(s) PO daily as needed 06/04/2017 11/17/2017 Inactive losartan 100 mg tablet RxNorm: 530382 TAKE ONE TABLET BY MOUTH DAILY 05/11/2017 02/23/2018 Inactive OneTouch Ultra Test strips RxNorm: TEST 1 TIME DAILY 201704/13/2018 Inactive clonazepam 0.5 mg tablet RxNorm: 221989 Tablet(s) TAKE 2 TABLETS BY MOUTH AT BEDTIME NEEDED 04/14/2017 11/17/2017 Inactive Lomotil 2.5 mg-0.025 mg tablet RxNorm: 3102920 1 Tablet(s) PO daily as needed 03/17/2017 06/03/2017 Inactive Mirapex 0.5 mg tablet RxNorm: 909389 TAKE ONE TABLET BY MOUTH EVERY NIGHT AT BEDTIME 01/19/2017 07/17/2017 Inactive clonazepam 0.5 mg tablet RxNorm: 967987 Tablet(s) TAKE 2 TABLETS BY MOUTH AT BEDTIME NEEDED 01/12/2017 04/09/2017 Inactive tramadol 50 mg tablet RxNorm: 535462 1-2 Tablet(s) PO Q6 PRN pain 12/31/2016 08/24/2017 Inactive folic acid 1 mg tablet RxNorm: 503040 TAKE ONE TABLET BY MOUTH DAILY 12/24/2016 12/10/2017 Inactive tramadol 50 mg tablet RxNorm: 406357 1-2 Tablet(s) PO Q6 PRN pain 12/12/2016 12/16/2016 Inactive tramadol 50 mg tablet RxNorm: 735595 1-2 Tablet(s) PO Q6 PRN pain 12/12/2016 12/11/2016 Inactive clonazepam 0.5 mg tablet RxNorm: 090860 Tablet(s) TAKE 2 TABLETS BY MOUTH AT BEDTIME NEEDED 12/09/2016 01/11/2017 Inactive pravastatin 80 mg tablet RxNorm: 580037 TAKE ONE TABLET BY MOUTH EVERY EVENING 11/11/2016 08/07/2017 Inactive Mirapex 0.5 mg tablet RxNorm: 456354 TAKE ONE TABLET BY MOUTH EVERY NIGHT AT BEDTIME 10/29/2016 01/18/2017 Inactive Prozac 40 mg capsule RxNorm: 008100 TAKE ONE CAPSULE BY MOUTH DAILY 10/29/2016 06/23/2017 Inactive spironolactone 25 mg tablet RxNorm: 487651 TAKE ONE TABLET BY MOUTH DAILY 10/29/2016 12/04/2016 Inactive clonazepam 0.5 mg tablet RxNorm: 661906 Tablet(s) TAKE 2 TABLETS BY MOUTH AT BEDTIME NEEDED 09/24/2016 11/22/2016 Inactive Lomotil 2.5 mg-0.025 mg tablet RxNorm: 2887118 1 Tablet(s) PO daily as needed 07/30/2016 01/23/2017 Inactive sucralfate 1 gram tablet RxNorm: 326705 TAKE ONE-HALF TABLET BY MOUTH TWO TIMES A DAY ONE HOUR BEFORE MEALS 07/28/201608/24 Inactive losartan 100 mg tablet RxNorm: 690678 TAKE ONE TABLET BY MOUTH DAILY 07/28/2016 01/23/2017 Inactive Lialda 1.2 gram tablet,delayed release RxNorm: 439719 3 Tablet(s) PO daily 07/02/2016 08/24/2017 Inactive Mirapex 0.5 mg tablet RxNorm: 111513 TAKE ONE TABLET BY MOUTH EVERY NIGHT AT BEDTIME 06/27/2016 10/24/2016 Inactive clonazepam 0.5 mg tablet RxNorm: 175686 Tablet(s) TAKE 2 TABLETS BY MOUTH AT BEDTIME NEEDED 06/27/2016 01/11/2017 Inactive clonazepam 0.5 mg tablet RxNorm: 987097 Tablet(s) TAKE 2 TABLETS BY MOUTH AT BEDTIME NEEDED 04/29/2016 06/25/2016 Inactive folic acid 1 mg tablet RxNorm: 451075 TAKE ONE TABLET BY MOUTH DAILY 02/28/2016 11/23/2016 Inactive clonazepam 0.5 mg tablet RxNorm: 641387 Tablet(s) TAKE 2 TABLETS BY MOUTH AT BEDTIME NEEDED 02/26/2016 01/11/2017 Inactive TurbineTouch Ultra Test strips RxNorm: TEST ONCE DAILY 02/25/2016 08/22/2016 Inactive sucralfate 1 gram tablet RxNorm: 149339 TAKE ONE-HALF TABLET BY MOUTH TWO TIMES A DAY ONE HOUR BEFORE MEALS 01/28/201607/25 Inactive Mirapex 0.5 mg tablet RxNorm: 343763 TAKE ONE TABLET BY MOUTH EVERY NIGHT AT BEDTIME 01/28/2016 06/25/2016 Inactive spironolactone 25 mg tablet RxNorm: 483313 TAKE ONE TABLET BY MOUTH DAILY 01/28/2016 10/23/2016 Inactive Lomotil 2.5 mg-0.025 mg tablet RxNorm: 2212849 1 Tablet(s) PO daily as needed 12/05/2015 01/11/2017 Inactive Klor-Con M20 mEq tablet,extended release RxNorm: 476278 TAKE ONE TABLET BY MOUTH THREE TIMES A DAY 12/05/2015 08/24/2017 Inactive losartan 100 mg tablet RxNorm: 358247 TAKE ONE TABLET BY MOUTH DAILY 11/22/2015 07/27/2016 Inactive amlodipine 5 mg tablet RxNorm: 768250 TAKE ONE TABLET BY MOUTH DAILY 11/13/2015 11/06/2016 Inactive Refill not appropriate clonazepam 0.5 mg tablet RxNorm: 827521 Tablet(s) TAKE 2 TABLETS BY MOUTH AT BEDTIME NEEDED 11/08/2015 01/11/2017 Inactive clonazepam 0.5 mg tablet RxNorm: 19740520 Tablet(s) TAKE 2 TABLETS BY MOUTH AT BEDTIME NEEDED 11/02/2015 01/29/2016 Inactive Prozac 40 mg capsule RxNorm: 926169 1 Capsule(s) PO daily 10/3010/24/2016 Inactive pravastatin 80 mg tablet RxNorm: 439427 1 Tablet(s) PO QPM 10/23/2016 Inactive OneTouch Ultra Test strips RxNorm: TEST ONCE DAILY 10/30/2015 01/27/2016 Inactive Imuran 50 mg tablet RxNorm: 669719 1.5 (75) Tablet(s) PO daily 08/17/2015 08/10/2016 Inactive K75.4 clonazepam 0.5 mg tablet RxNorm: 469988 Tablet(s) TAKE 2 TABLETS BY MOUTH AT BEDTIME NEEDED 08/10/2015 01/11/2017 Inactive Imuran 50 mg tablet RxNorm: 365845 1.5 (75) Tablet(s) PO daily 08/10/2015 08/16/2015 Inactive OneTouch Ultra Test strips RxNorm: TEST ONCE DAILY 08/09/2015 10/29/2015 Inactive Vitamin D2 50,000 unit capsule RxNorm: 263801 1 Capsule(s) PO QW 08/07/2015 01/11/2017 Inactive Mirapex 0.5 mg tablet RxNorm: 920046 Tablet(s) TAKE ONE TABLET BY MOUTH EVERY NIGHT AT BEDTIME 07/19/2015 01/14/2016 Inactive Lomotil 2.5 mg-0.025 mg tablet RxNorm: 1819235 1 Tablet(s) PO daily as needed 06/06/2015 01/11/2017 Inactive clonazepam 0.5 mg tablet RxNorm: 168725 Tablet(s) TAKE 2 TABLETS BY MOUTH AT BEDTIME NEEDED 05/10/2015 08/06/2015 Inactive sucralfate 1 gram tablet RxNorm: 460108 TAKE ONE-HALF TABLET BY MOUTH TWO TIMES A DAY ONE HOUR BEFORE MEALS 05/04/201501/26 Inactive meclizine 25 mg tablet RxNorm: 813908 1/2-1 Tablet(s) PO Q6 PRN 03/15/2015 08/24/2017 Inactive spironolactone 25 mg tablet RxNorm: 767952 1 Tablet(s) PO daily 03/14/2015 01/27/2016 Inactive spironolactone 25 mg tablet RxNorm: 870070 1 Tablet(s) PO daily 03/14/2015 03/13/2015 Inactive clonazepam 0.5 mg tablet RxNorm: 291111 TAKE 2 TABLETS BY MOUTH AT BEDTIME NEEDED 02/08/2015 05/02/2015 Inactive folic acid 1 mg tablet RxNorm: 337255 1 Tablet(s) PO daily 02/01/2016 Inactive clonazepam 0.5 mg tablet RxNorm: 168366 TAKE 2 TABLETS BY MOUTH AT BEDTIME NEEDED 02/06/2015 02/08/2015 Inactive amlodipine 10 mg tablet RxNorm: 423708 1/2 Tablet(s) PO daily 02/06/2015 07/18/2015 Inactive this replaces her 5mg pill OneTouch Ultra Test strips RxNorm: TEST ONCE DAILY 01/30/2015 07/28/2015 Inactive Mirapex 0.5 mg tablet RxNorm: 972844 TAKE ONE TABLET BY MOUTH EVERY NIGHT AT BEDTIME 01/29/2015 07/18/2015 Inactive sucralfate 1 gram tablet RxNorm: 705341 TAKE ONE-HALF TABLET BY MOUTH TWO TIMES A DAY ONE HOUR BEFORE MEALS 01/11/201504/10 Inactive OneTouch Ultra Test strips RxNorm: 1 Miscellaneous daily 11/1401/29/2015 Inactive amlodipine 10 mg tablet RxNorm: 480748 1 Tablet(s) PO daily 02/05/2015 Inactive this replaces her 5mg pill clonazepam 0.5 mg tablet RxNorm: 982045 2 Tablet(s) PO QHS 10/201402/05/2015 Inactive sucralfate 1 gram tablet RxNorm: 224933 1/2 Tablet(s) PO BID 1 hour before meal 10/11/2014 01/08/2015 Inactive losartan 100 mg tablet RxNorm: 129564 1 Tablet(s) PO daily 04/201410/05/2015 Inactive amlodipine 5 mg tablet RxNorm: 996205 1 Tablet(s) PO daily 04/201410/30/2014 Inactive Imuran 50 mg tablet RxNorm: 328024 1.5 (75) Tablet(s) PO daily 10/11/2014 08/09/2015 Inactive Lomotil 2.5 mg-0.025 mg tablet RxNorm: 8889737 1 Tablet(s) PO daily as needed 10/11/2014 06/05/2015 Inactive pravastatin 80 mg tablet RxNorm: 347446 1 Tablet(s) PO QPM 04/201410/05/2015 Inactive Klor-Con M20 mEq tablet,extended release RxNorm: 736124 1 Tablet(s) PO TID 10/11/2014 10/05/2015 Inactive Mirapex 0.5 mg tablet RxNorm: 183467 1 Tablet(s) PO QHS 201401/28/2015 Inactive Prozac 40 mg capsule RxNorm: 639850 1 Capsule(s) PO daily 10/1110/05/2015 Inactive Colazal 750 mg capsule RxNorm: 671011 1 Capsule(s) PO TID No Start Date Active Combigan 0.2 %-0.5 % eye drops RxNorm: 682791 1 Drop(s) ophthalmic (eye) BID No Start Date Active Lumigan 0.01 % eye drops RxNorm: 4869281 1 Drop(s) OPH QHS No Start Date Active Prolia 60 mg/mL subcutaneous syringe RxNorm: 607309 1 Milliliter(s) SQ every 6 months No Start Date Active Vitamin D2 50,000 unit capsule RxNorm: 756139 1 Capsule(s) PO QW No Start Date 08/06/2015 Inactive OneTouch Ultra Test strips RxNorm: 1 Miscellaneous daily No Start Date 11/13/2014 Inactive Plavix 75 mg tablet RxNorm: 673207 1 Tablet(s) PO daily No Start Date 06/17/2017 Inactive Lomotil 2.5 mg-0.025 mg tablet RxNorm: 0945786 1 Tablet(s) PO daily as needed No Start Date 10/10/2014 Inactive folic acid 1 mg tablet RxNorm: 233564 1 Tablet(s) PO daily No Start Date 02/06/2015 Inactive amlodipine 5 mg tablet RxNorm: 219415 1 Tablet(s) PO daily No Start Date 10/10/2014 Inactive Imuran 50 mg tablet RxNorm: 286971 1 1/2 (75) Tablet(s) PO daily No Start Date 10/10/2014 Inactive Boniva 3 mg/3 mL intravenous syringe RxNorm: 349235 Milliliter(s) IV No Start Date 07/18/2015 Inactive potassium chloride 20 meq RxNorm: 776634 1 PO TID No Start Date 10/10/2014 Inactive sucralfate 1 gram tablet RxNorm: 049328 1/2 Tablet(s) PO BID 1 hour before meal No Start Date 10/10/2014 Inactive losartan 100 mg tablet RxNorm: 983647 1 Tablet(s) PO daily No Start Date 10/10/2014 Inactive Vitamin D3 2,000 unit tablet RxNorm: 003983 1 Tablet(s) PO daily No Start Date 08/23/2015 Inactive Calcium + D oral RxNorm: 644992 oral No Start Date 08/24/2017 Inactive Prozac 40 mg capsule RxNorm: 447316 1 Capsule(s) PO daily No Start Date 10/10/2014 Inactive timolol 0.5 % eye drops RxNorm: 465480 1 Drop(s) OPH BID No Start Date 12/28/2017 Inactive clonazepam 0.5 mg tablet RxNorm: 797391 2 Tablet(s) PO QHS No Start Date 10/16/2014 Inactive amlodipine 5 mg tablet RxNorm: 580291 1 Tablet(s) PO daily No Start Date 08/22/2015 Inactive pravastatin 80 mg tablet RxNorm: 760877 1 Tablet(s) PO QPM No Start Date 10/10/2014 Inactive Lialda 1.2 gram tablet,delayed release RxNorm: 709663 3 Tablet(s) PO daily No Start Date 07/01/2016 Inactive Alavert 10 mg disintegrating tablet RxNorm: 486074 1 Tablet(s) PO daily as needed No Start Date 08/24/2017 Inactive Medication Administered No Medication Administered data Immunizations Vaccine Codes Date Status Influenza CVX: 141 12/29/2017 completed Pneumococcal (Adult) CVX: 133 02/20/2016 completed Influenza CVX: 141 01/23/2016 completed Assessments Condition Codes Effective Dates Essential (primary) hypertension ICD-10: I10 ICD-9: 401.1 05/17/2018 Type 2 diabetes mellitus without complications ICD-10: E11.9 ICD-9: 250.00 05/17/2018 Muscle weakness (generalized) ICD-10: M62.81 ICD-9: 728.87 05/17/2018 Encounter for immunization ICD-10: Z23 ICD-9: V03.82 01/12/2018 Encounter for general adult medical examination [...] Reason For Visit Effective Dates Notes hypertension 05/17/2018 hypertension 01/12/2018 hypertension 12/29/2017 Annual Medicare Wellness [...] Observation Code Item Item Code Result Date %Hba1C Ejn417 % HbA1c 94402-3 6.3 % 05/10/2018 %Hba1C Ind214 Gluc Ave 134 mg/dL 05/10/2018 Hepatic Nfu610 ALBUMIN 4.0 g/dL 05/10/2018 Hepatic Xbx707 TPRO 6.6 g/dL 05/10/2018 Hepatic Wtb526 GLOB 2.6 g/dL 05/10/2018 Hepatic Ker438 A/G Ratio 1.5 Ratio 05/10/2018 Hepatic Ztn145 ALK PHOS 39 U/L 05/10/2018 Hepatic Ioc485 ALT(SGPT) 19 U/L 05/10/2018 Hepatic Avn448 AST(SGOT) 28 U/L 05/10/2018 Hepatic Xbf995 BILI T 0.3 mg/dL 05/10/2018 Hepatic Azt424 BILI D 0.1 mg/dL 05/10/2018 Hepatic Dyg792 BILI I 0.2 mg/dL 05/10/2018 C-Reactive Protein Qnt Crqnt CRP 0.2 mg/dl 04/23/2018 Cbc With Differential Ord2 WBC 5.92 K/ul 04/23/2018 Cbc With Differential Ord2 RBC 4.54 M/ul 04/23/2018 Cbc With Differential Ord2 HGB 14.4 g/dl 04/23/2018 Cbc With Differential Ord2 HCT 42.3 % 04/23/2018 Cbc With Differential Ord2 Neut% 67.9 % 04/23/2018 Cbc With Differential Ord2 MCV 93.2 fl 04/23/2018 Cbc With Differential Ord2 Lymph% 19.8 % 04/23/2018 Cbc With Differential Ord2 MCH 31.7 pg 04/23/2018 Cbc With Differential Ord2 Ogle% 10.1 % 04/23/2018 Cbc With Differential Ord2 MCHC 34.0 pg 04/23/2018 Cbc With Differential Ord2 Eos% 1.7 % 04/23/2018 Cbc With Differential Ord2 PLT 208 K/ul 04/23/2018 Cbc With Differential Ord2 Baso% 0.5 % 04/23/2018 Cbc With Differential Ord2 RDW 13.5 % 04/23/2018 Cbc With Differential Ord2 Neut ABS# 4.02 K/ul 04/23/2018 Cbc With Differential Ord2 Lymph ABS# 1.17 K/ul 04/23/2018 Cbc With Differential Ord2 Ogle ABS# 0.6 K/ul 04/23/2018 Cbc With Differential Ord2 Eos ABS# 0.1 K/ul 04/23/2018 Cbc With Differential Ord2 Baso ABS# 0.0 K/ul 04/23/2018 Sed Rate Ord21 ESR 19 mm/hr 04/23/2018 Comp Metabolic Tlu560 NA 134 mEq/L 04/23/2018 Comp Metabolic Ama027 K 4.6 mEq/L 04/23/2018 Comp Metabolic Wke934 CL 103 mEq/L 04/23/2018 Comp Metabolic Gve515 CO2 22.0 mEq/L 04/23/2018 Comp Metabolic Apu894 ANION GAP 14 04/23/2018 Comp Metabolic Tyv353 GLUCOSE 133 mg/dL 04/23/2018 Comp Metabolic Ehg114 Creat 0.9 mg/dL 04/23/2018 Comp Metabolic Dzu786 eGFR 62 ml/min/1.73m2 04/23/2018 Comp Metabolic Mbf585 BUN 11 mg/dL 04/23/2018 Comp Metabolic Icl684 B/C Ratio 11.7 Ratio 04/23/2018 Comp Metabolic Zfz762 CALCIUM 9.0 mg/dL 04/23/2018 Comp Metabolic Ovm204 ALK PHOS 42 U/L 04/23/2018 Comp Metabolic Pxd205 AST(SGOT) 44 U/L 04/23/2018 Comp Metabolic Lno774 ALT(SGPT) 25 U/L 04/23/2018 Comp Metabolic Vmn471 BILI T 0.4 mg/dL 04/23/2018 Comp Metabolic Aqy293 ALBUMIN 4.2 g/dL 04/23/2018 Comp Metabolic Fdj006 TPRO 6.6 g/dL 04/23/2018 Comp Metabolic Gya498 GLOB 2.4 g/dL 04/23/2018 Comp Metabolic Zjo677 A/G Ratio 1.7 Ratio 04/23/2018 Comp Metabolic Trv453 Osmo 270 mOsmo 04/23/2018 Vitamin D 25 Oh Pvi5263 VITAMIN D, 25 HYDROXY 28.88 ng/mL C-Reactive Protein Qnt Crqnt CRP 0.1 mg/dl 02/23/2018 Cbc With Differential Ord2 WBC 5.82 K/ul 02/23/2018 Cbc With Differential Ord2 RBC 4.42 M/ul 02/23/2018 Cbc With Differential Ord2 HGB 14.1 g/dl 02/23/2018 Cbc With Differential Ord2 HCT 41.5 % 02/23/2018 Cbc With Differential Ord2 Neut% 68.6 % 02/23/2018 Cbc With Differential Ord2 MCV 93.9 fl 02/23/2018 Cbc With Differential Ord2 Lymph% 21.3 % 02/23/2018 Cbc With Differential Ord2 MCH 31.9 pg 02/23/2018 Cbc With Differential Ord2 Ogle% 8.8 % 02/23/2018 Cbc With Differential Ord2 [...] 1.24 K/ul 02/23/2018 Cbc With Differential Ord2 Ogle ABS# 0.5 K/ul 02/23/2018 Cbc With Differential Ord2 Eos ABS# 0.1 K/ul 02/23/2018 Cbc With Differential Ord2 Baso ABS# 0.0 K/ul 02/23/2018 Comp Metabolic Tau259 NA 136 mEq/L 02/23/2018 Comp Metabolic Dwg640 K 4.0 mEq/L 02/23/2018 Comp Metabolic Tin544 CL 105 mEq/L 02/23/2018 Comp Metabolic Slb843 CO2 20.0 mEq/L 02/23/2018 Comp Metabolic Mzq466 ANION GAP 15 02/23/2018 Comp Metabolic Aiw960 GLUCOSE 129 mg/dL 02/23/2018 Comp Metabolic Rdx729 Creat 0.9 mg/dL 02/23/2018 Comp Metabolic Lqv863 eGFR 66 ml/min/1.73m2 02/23/2018 Comp Metabolic Asz709 BUN 11 mg/dL 02/23/2018 Comp Metabolic Dku727 B/C Ratio 12.2 Ratio 02/23/2018 Comp Metabolic Naf926 CALCIUM 8.6 mg/dL 02/23/2018 Comp Metabolic Qdy491 ALK PHOS 43 U/L 02/23/2018 Comp Metabolic Mxu267 AST(SGOT) 33 U/L 02/23/2018 Comp Metabolic Uel290 ALT(SGPT) 24 U/L 02/23/2018 Comp Metabolic Yhc919 BILI T 0.5 mg/dL 02/23/2018 Comp Metabolic Roa984 ALBUMIN 4.2 g/dL 02/23/2018 Comp Metabolic Vll856 TPRO 6.8 g/dL 02/23/2018 Comp Metabolic Dws098 GLOB 2.6 g/dL 02/23/2018 Comp Metabolic Rhi944 A/G Ratio 1.6 Ratio 02/23/2018 Comp Metabolic Yws224 Osmo 273 mOsmo 02/23/2018 Vitamin D 25 Oh Wji2133 VITAMIN D, 25 HYDROXY 29.25 ng/mL Sed Rate Ord21 ESR 8 mm/hr 02/23/2018 Hepatic Sae136 ALBUMIN 4.3 g/dL 01/05/2018 Hepatic Giv023 TPRO 6.7 g/dL 01/05/2018 Hepatic Iwl390 GLOB 2.5 g/dL 01/05/2018 Hepatic Rtc495 A/G Ratio 1.7 Ratio 01/05/2018 Hepatic Uwl844 ALK PHOS 53 U/L 01/05/2018 Hepatic Okr829 ALT(SGPT) 31 U/L 01/05/2018 Hepatic Hwp836 AST(SGOT) 44 U/L 01/05/2018 Hepatic Fub330 BILI T 0.4 mg/dL 01/05/2018 Hepatic Lqv831 BILI D 0.1 mg/dL 01/05/2018 Hepatic Qsv016 BILI I 0.3 mg/dL 01/05/2018 Comp Metabolic Gpp305 NA 133 mEq/L 10/20/2017 Comp Metabolic Zai175 K 4.1 mEq/L 10/20/2017 Comp Metabolic Mof427 CL 103 mEq/L 10/20/2017 Comp Metabolic Koj847 CO2 23.0 mEq/L 10/20/2017 Comp Metabolic Pow599 ANION GAP 11 10/20/2017 Comp Metabolic Dgz370 GLUCOSE 118 mg/dL 10/20/2017 Comp Metabolic Wng066 Creat 0.9 mg/dL 10/20/2017 Comp Metabolic Heq979 eGFR 64 ml/min/1.73m2 10/20/2017 Comp Metabolic Ujt041 BUN 14 mg/dL 10/20/2017 Comp Metabolic Roa789 B/C Ratio 15.2 Ratio 10/20/2017 Comp Metabolic Oha113 CALCIUM 8.8 mg/dL 10/20/2017 Comp Metabolic Ddr241 ALK PHOS 43 U/L 10/20/2017 Comp Metabolic Ifn111 AST(SGOT) 31 U/L 10/20/2017 Comp Metabolic Tgx272 ALT(SGPT) 25 U/L 10/20/2017 Comp Metabolic Lac798 BILI T 0.4 mg/dL 10/20/2017 Comp Metabolic Pub185 ALBUMIN 4.1 g/dL 10/20/2017 Comp Metabolic Cam994 TPRO 6.6 g/dL 10/20/2017 Comp Metabolic Esk686 GLOB 2.5 g/dL 10/20/2017 Comp Metabolic Xag185 A/G Ratio 1.6 Ratio 10/20/2017 Comp Metabolic Fkx800 Osmo 268 mOsmo 10/20/2017 Vitamin D 25 Oh Fan0917 VITAMIN D, 25 HYDROXY 42.65 ng/mL C-Reactive [...] 32.0 pg 10/20/2017 Cbc With Differential Ord2 Ogle% 8.6 % 10/20/2017 Cbc With Differential Ord2 MCHC 33.9 pg 10/20/2017 Cbc With Differential Ord2 Eos% 0.5 % 10/20/2017 Cbc With Differential Ord2 PLT 209 K/ul 10/20/2017 Cbc With Differential Ord2 Baso% 0.4 % 10/20/2017 Cbc With Differential Ord2 RDW 13.1 % 10/20/2017 Cbc With Differential Ord2 Neut ABS# 3.78 K/ul 10/20/2017 Cbc With Differential Ord2 Lymph ABS# 1.16 K/ul 10/20/2017 Cbc With Differential Ord2 Ogle ABS# 0.5 K/ul 10/20/2017 Cbc With Differential Ord2 Eos ABS# 0.0 K/ul 10/20/2017 Cbc With Differential Ord2 Baso ABS# 0.0 K/ul 10/20/2017 Sed Rate Ord21 ESR 10 mm/hr 10/20/2017 Cbc With Differential Ord2 WBC 6.41 K/ul 07/21/2017 Cbc With Differential Ord2 RBC 4.35 M/ul 07/21/2017 Cbc With Differential Ord2 HGB 14.0 g/dl 07/21/2017 Cbc With Differential Ord2 HCT 41.3 % 07/21/2017 Cbc With Differential Ord2 Neut% 70.8 % 07/21/2017 Cbc With Differential Ord2 MCV 94.9 fl 07/21/2017 Cbc With Differential Ord2 Lymph% 18.7 % 07/21/2017 Cbc With Differential Ord2 MCH 32.2 pg 07/21/2017 Cbc With Differential Ord2 Ogle% 9.7 % 07/21/2017 Cbc With Differential Ord2 MCHC [...] 1.20 K/ul 07/21/2017 Cbc With Differential Ord2 Ogle ABS# 0.6 K/ul 07/21/2017 Cbc With Differential Ord2 Eos ABS# 0.0 K/ul 07/21/2017 Cbc With Differential Ord2 Baso ABS# 0.0 K/ul 07/21/2017 Sed Rate Ord21 ESR 14 mm/hr 07/21/2017 Comp Metabolic Tsl945 NA 135 mEq/L 07/21/2017 Comp Metabolic Zrg228 K 4.5 mEq/L 07/21/2017 Comp Metabolic Ghg294 CL 101 mEq/L 07/21/2017 Comp Metabolic Etj794 CO2 26.0 mEq/L 07/21/2017 Comp Metabolic Bpz334 ANION GAP 13 07/21/2017 Comp Metabolic Ywx910 GLUCOSE 97 mg/dL 07/21/2017 Comp Metabolic Nwj612 Creat 0.9 mg/dL 07/21/2017 Comp Metabolic Bjh721 eGFR 66 ml/min/1.73m2 07/21/2017 Comp Metabolic Ein340 BUN 13 mg/dL 07/21/2017 Comp Metabolic Woz001 B/C Ratio 14.4 Ratio 07/21/2017 Comp Metabolic Cyy950 CALCIUM 9.2 mg/dL 07/21/2017 Comp Metabolic Xgi536 ALK PHOS 46 U/L 07/21/2017 Comp Metabolic Zfw817 AST(SGOT) 31 U/L 07/21/2017 Comp Metabolic Lvw420 ALT(SGPT) 19 U/L 07/21/2017 Comp Metabolic Ewk574 BILI T 0.5 mg/dL 07/21/2017 Comp Metabolic Cof722 ALBUMIN 4.5 g/dL 07/21/2017 Comp Metabolic Ppa711 TPRO 7.2 g/dL 07/21/2017 Comp Metabolic Iwu525 GLOB 2.7 g/dL 07/21/2017 Comp Metabolic Med756 A/G Ratio 1.7 Ratio 07/21/2017 Comp Metabolic Rdp214 Osmo 270 mOsmo 07/21/2017 Vitamin D 25 Oh Uus4701 VITAMIN D, 25 HYDROXY 31.39 ng/mL C-Reactive [...] 70.8 % 04/14/2017 Cbc With Differential Ord2 MCV 96.0 fl 04/14/2017 Cbc With Differential Ord2 Lymph% 19.7 % 04/14/2017 Cbc With Differential Ord2 MCH 31.9 pg 04/14/2017 Cbc With Differential Ord2 Ogle% 9.1 % 04/14/2017 Cbc With Differential Ord2 [...] 1.47 K/ul 04/14/2017 Cbc With Differential Ord2 Ogle ABS# 0.7 K/ul 04/14/2017 Cbc With Differential Ord2 Eos ABS# 0.0 K/ul 04/14/2017 Cbc With Differential Ord2 Baso ABS# 0.0 K/ul 04/14/2017 Comp Metabolic Gsf709 NA 136 mEq/L 04/14/2017 Comp Metabolic Eyk880 K 4.4 mEq/L 04/14/2017 Comp Metabolic Ium542 CL 104 mEq/L 04/14/2017 Comp Metabolic Bpe816 CO2 21.0 mEq/L 04/14/2017 Comp Metabolic Zou225 ANION GAP 15 04/14/2017 Comp Metabolic Ceq467 GLUCOSE 112 mg/dL 04/14/2017 Comp Metabolic Qgu929 Creat 1.1 mg/dL 04/14/2017 Comp Metabolic Vvz029 eGFR 51 ml/min/1.73m2 04/14/2017 Comp Metabolic Sce898 BUN 16 mg/dL 04/14/2017 Comp Metabolic Byw382 B/C Ratio 14.3 Ratio 04/14/2017 Comp Metabolic Ajx736 CALCIUM 8.9 mg/dL 04/14/2017 Comp Metabolic Nhg576 ALK PHOS 39 U/L 04/14/2017 Comp Metabolic Hll039 AST(SGOT) 24 U/L 04/14/2017 Comp Metabolic Anm271 ALT(SGPT) 18 U/L 04/14/2017 Comp Metabolic Mtp951 BILI T 0.5 mg/dL 04/14/2017 Comp Metabolic Kwb046 ALBUMIN 4.3 g/dL 04/14/2017 Comp Metabolic Wvb965 TPRO 6.8 g/dL 04/14/2017 Comp Metabolic Ddd151 GLOB 2.5 g/dL 04/14/2017 Comp Metabolic Zsv593 A/G Ratio 1.7 Ratio 04/14/2017 Comp Metabolic Ifa026 Osmo 274 mOsmo 04/14/2017 Vitamin D 25 Oh Gig6552 VITAMIN D, 25 HYDROXY 29.88 ng/mL Sed Rate Ord21 ESR 15 mm/hr 04/14/2017 C-Reactive Protein Qnt Crqnt CRP 0.1 mg/dl 04/14/2017 C-Reactive Protein Qnt Crqnt CRP 0.1 mg/dl 02/09/2017 Comp Metabolic Hro750 NA 135 mEq/L 02/09/2017 Comp Metabolic Lsk557 K 4.4 mEq/L 02/09/2017 Comp Metabolic Got787 CL 102 mEq/L 02/09/2017 Comp Metabolic Nkl300 CO2 23.0 mEq/L 02/09/2017 Comp Metabolic Dam560 ANION GAP 14 02/09/2017 Comp Metabolic Lpk150 GLUCOSE 98 mg/dL 02/09/2017 Comp Metabolic Ffd984 Creat 0.9 mg/dL 02/09/2017 Comp Metabolic Uoj520 eGFR 65 ml/min/1.73m2 02/09/2017 Comp Metabolic Ole585 BUN 18 mg/dL 02/09/2017 Comp Metabolic Dxd631 B/C Ratio 19.8 Ratio 02/09/2017 Comp Metabolic Lxp056 CALCIUM 9.2 mg/dL 02/09/2017 Comp Metabolic Hub459 ALK PHOS 42 U/L 02/09/2017 Comp Metabolic Afe557 AST(SGOT) 24 U/L 02/09/2017 Comp Metabolic Ubq399 ALT(SGPT) 16 U/L 02/09/2017 Comp Metabolic Wjx260 BILI T 0.4 mg/dL 02/09/2017 Comp Metabolic Yxu044 ALBUMIN 4.4 g/dL 02/09/2017 Comp Metabolic Uvo230 TPRO 7.0 g/dL 02/09/2017 Comp Metabolic Jdf789 GLOB 2.6 g/dL 02/09/2017 Comp Metabolic Ofj090 A/G Ratio 1.7 Ratio 02/09/2017 Comp Metabolic Hef134 Osmo 272 mOsmo 02/09/2017 Cbc With Differential [...] 32.5 pg 02/09/2017 Cbc With Differential Ord2 Ogle% 8.7 % 02/09/2017 Cbc With Differential Ord2 MCHC 34.3 pg 02/09/2017 Cbc With Differential Ord2 Eos% 0.6 % 02/09/2017 Cbc With Differential Ord2 PLT 221 K/ul 02/09/2017 Cbc With Differential Ord2 Baso% 0.3 % 02/09/2017 Cbc With Differential Ord2 RDW 13.4 % 02/09/2017 Cbc With Differential Ord2 Neut ABS# 5.52 K/ul 02/09/2017 Cbc With Differential Ord2 Lymph ABS# 1.06 K/ul 02/09/2017 Cbc With Differential Ord2 Ogle ABS# 0.6 K/ul 02/09/2017 Cbc With Differential Ord2 Eos ABS# 0.0 K/ul 02/09/2017 Cbc With Differential Ord2 Baso ABS# 0.0 K/ul 02/09/2017 Vitamin D 25 Oh Lwe3596 VITAMIN D, 25 HYDROXY 36.00 ng/mL Sed Rate Ord21 ESR 16 mm/hr 02/09/2017 %Hba1C Ids655 % HbA1c 89278-0 6.1 % 05/20/2016 %Hba1C Hoo378 Gluc Ave 128 mg/dL 05/20/2016 Lipid Ord30 CHOL 212 mg/dL 05/20/2016 Lipid Ord30 HDL 52.0 mg/dl 05/20/2016 Lipid Ord30 TRIG 149 mg/dL 05/20/2016 Lipid Ord30 LDL 130 mg/dL 05/20/2016 Lipid Ord30 C/HDL 4.1 Ratio 05/20/2016 Comp Metabolic Dfs419 NA 134 mEq/L 04/21/2016 Comp Metabolic Gan560 K 5.0 mEq/L 04/21/2016 Comp Metabolic Fqs203 CL 103 mEq/L 04/21/2016 Comp Metabolic Kow778 CO2 24.0 mEq/L 04/21/2016 Comp Metabolic Bcp504 ANION GAP 12 04/21/2016 Comp Metabolic Kfy660 GLUCOSE 122 mg/dL 04/21/2016 Comp Metabolic Qxe000 Creat 1.1 mg/dL 04/21/2016 Comp Metabolic Oci345 eGFR 52 ml/min/1.73m2 04/21/2016 Comp Metabolic Kxc642 BUN 24 mg/dL 04/21/2016 Comp Metabolic Sco873 B/C Ratio 21.6 Ratio 04/21/2016 Comp Metabolic Dgx873 CALCIUM 9.7 mg/dL 04/21/2016 Comp Metabolic Elj105 ALK PHOS 51 U/L 04/21/2016 Comp Metabolic Ren576 AST(SGOT) 23 U/L 04/21/2016 Comp Metabolic Wet485 ALT(SGPT) 17 U/L 04/21/2016 Comp Metabolic Mpk053 BILI T 0.5 mg/dL 04/21/2016 Comp Metabolic Gbx058 ALBUMIN 4.4 g/dL 04/21/2016 Comp Metabolic Vfq384 TPRO 7.3 g/dL 04/21/2016 Comp Metabolic Ayl942 GLOB 2.9 g/dL 04/21/2016 Comp Metabolic Iqh881 A/G Ratio 1.5 Ratio 04/21/2016 Comp Metabolic Xtt483 Osmo 274 mOsmo 04/21/2016 Cbc With Differential [...] 32.0 pg 04/21/2016 Cbc With Differential Ord2 Ogle% 9.1 % 04/21/2016 Cbc With Differential Ord2 [...] 1.39 K/ul 04/21/2016 Cbc With Differential Ord2 Ogle ABS# 0.6 K/ul 04/21/2016 Cbc With Differential Ord2 Eos ABS# 0.1 K/ul 04/21/2016 Cbc With Differential Ord2 Baso ABS# 0.0 K/ul 04/21/2016 Bili D Ord93 BILI D 0.1 mg/dL 04/21/2016 Bili D Ord93 BILI I 0.4 mg/dL 04/21/2016 Vitamin D 25 Oh Xnb1783 VITAMIN D, 25 HYDROXY 51.65 ng/mL Sed Rate Ord21 ESR 26 mm/hr 04/21/2016 C-Reactive Protein Qnt Crqnt CRP 0.1 mg/dl 04/21/2016 Comp Metabolic Sws849 NA 133 mEq/L 03/18/2016 Comp Metabolic Xoa933 K 4.9 mEq/L 03/18/2016 Comp Metabolic Oil949 CL 102 mEq/L 03/18/2016 Comp Metabolic Pdc537 CO2 25.0 mEq/L 03/18/2016 Comp Metabolic Ijt807 ANION GAP 11 03/18/2016 Comp Metabolic Ami525 GLUCOSE 114 mg/dL 03/18/2016 Comp Metabolic Vqb688 Creat 1.1 mg/dL 03/18/2016 Comp Metabolic Erh975 eGFR 54 ml/min/1.73m2 03/18/2016 Comp Metabolic Fsc704 BUN 23 mg/dL 03/18/2016 Comp Metabolic Kqn927 B/C Ratio 21.3 Ratio 03/18/2016 Comp Metabolic Psj979 CALCIUM 9.7 mg/dL 03/18/2016 Comp Metabolic Mmx789 ALK PHOS 54 U/L 03/18/2016 Comp Metabolic Wrc088 AST(SGOT) 21 U/L 03/18/2016 Comp Metabolic Zhd191 ALT(SGPT) 15 U/L 03/18/2016 Comp Metabolic Ylz586 BILI T 0.4 mg/dL 03/18/2016 Comp Metabolic Jcs644 ALBUMIN 4.4 g/dL 03/18/2016 Comp Metabolic Frb959 TPRO 7.4 g/dL 03/18/2016 Comp Metabolic Isz416 GLOB 3.0 g/dL 03/18/2016 Comp Metabolic Gjx349 A/G Ratio 1.5 Ratio 03/18/2016 Comp Metabolic Hjp453 Osmo 271 mOsmo 03/18/2016 Vitamin D 25 Oh Wed1268 VITAMIN D, 25 HYDROXY 46.10 ng/mL Sed Rate Ord21 ESR 26 mm/hr 02/13/2016 Comp Metabolic Whp354 NA 133 mEq/L 02/13/2016 Comp Metabolic Haf030 K 4.8 mEq/L 02/13/2016 Comp Metabolic Tgy438 CL 104 mEq/L 02/13/2016 Comp Metabolic Uzp140 CO2 23.0 mEq/L 02/13/2016 Comp Metabolic Oce068 ANION GAP 11 02/13/2016 Comp Metabolic Hjg169 GLUCOSE 104 mg/dL 02/13/2016 Comp Metabolic Eel751 Creat 1.0 mg/dL 02/13/2016 Comp Metabolic Jgm257 eGFR 56 ml/min/1.73m2 02/13/2016 Comp Metabolic Ytk158 BUN 25 mg/dL 02/13/2016 Comp Metabolic Uup309 B/C Ratio 24.0 Ratio 02/13/2016 Comp Metabolic Eqp350 CALCIUM 9.1 mg/dL 02/13/2016 Comp Metabolic Ksb594 ALK PHOS 43 U/L 02/13/2016 Comp Metabolic Jxk551 AST(SGOT) 21 U/L 02/13/2016 Comp Metabolic Zwz659 ALT(SGPT) 17 U/L 02/13/2016 Comp Metabolic Xkm413 BILI T 0.4 mg/dL 02/13/2016 Comp Metabolic Znp003 ALBUMIN 4.3 g/dL 02/13/2016 Comp Metabolic Ald253 TPRO 7.1 g/dL 02/13/2016 Comp Metabolic Hnu229 GLOB 2.9 g/dL 02/13/2016 Comp Metabolic Hus153 A/G Ratio 1.5 Ratio 02/13/2016 Comp Metabolic Soy483 Osmo 271 mOsmo 02/13/2016 C-Reactive Protein Qnt [...] 31.6 pg 02/13/2016 Cbc With Differential Ord2 Ogle% 9.7 % 02/13/2016 Cbc With Differential Ord2 MCHC 33.7 pg 02/13/2016 Cbc With Differential Ord2 Eos% 0.8 % 02/13/2016 Cbc With Differential Ord2 PLT 203 K/ul 02/13/2016 Cbc With Differential Ord2 Baso% 0.3 % 02/13/2016 Cbc With Differential Ord2 RDW 13.6 % 02/13/2016 Cbc With Differential Ord2 Neut ABS# 4.46 K/ul 02/13/2016 Cbc With Differential Ord2 Lymph ABS# 1.17 K/ul 02/13/2016 Cbc With Differential Ord2 Ogle ABS# 0.6 K/ul 02/13/2016 Cbc With Differential Ord2 Eos ABS# 0.1 K/ul 02/13/2016 Cbc With Differential Ord2 Baso ABS# 0.0 K/ul 02/13/2016 Comp Metabolic Dli241 NA 132 mEq/L 10/08/2015 Comp Metabolic Tda153 K 4.7 mEq/L 10/08/2015 Comp Metabolic Ldz903 CL 101 mEq/L 10/08/2015 Comp Metabolic Hyz344 CO2 24.0 mEq/L 10/08/2015 Comp Metabolic Qxs593 ANION GAP 12 10/08/2015 Comp Metabolic Aop729 GLUCOSE 85 mg/dL 10/08/2015 Comp Metabolic Qdq804 Creat 0.9 mg/dL 10/08/2015 Comp Metabolic Pzu817 eGFR 66 ml/min/1.73m2 10/08/2015 Comp Metabolic Hlo840 BUN 29 mg/dL 10/08/2015 Comp Metabolic Pgt023 B/C Ratio 32.2 Ratio 10/08/2015 Comp Metabolic Pwf849 CALCIUM 9.1 mg/dL 10/08/2015 Comp Metabolic Mab759 ALK PHOS 40 U/L 10/08/2015 Comp Metabolic Alk527 AST(SGOT) 18 U/L 10/08/2015 Comp Metabolic Pgr327 ALT(SGPT) 14 U/L 10/08/2015 Comp Metabolic Qbc386 BILI T 0.3 mg/dL 10/08/2015 Comp Metabolic Hrb085 ALBUMIN 4.1 g/dL 10/08/2015 Comp Metabolic Oot147 TPRO 6.8 g/dL 10/08/2015 Comp Metabolic Ysf425 GLOB 2.7 g/dL 10/08/2015 Comp Metabolic Fbn841 A/G Ratio 1.5 Ratio 10/08/2015 Comp Metabolic Msb327 Osmo 270 mOsmo 10/08/2015 C-Reactive Protein Qnt [...] 31.4 pg 10/08/2015 Cbc With Differential Ord2 Ogle% 10.5 % 10/08/2015 Cbc With Differential Ord2 [...] 1.24 K/ul 10/08/2015 Cbc With Differential Ord2 Ogle ABS# 0.8 K/ul 10/08/2015 Cbc With Differential Ord2 Eos ABS# 0.0 K/ul 10/08/2015 Cbc With Differential Ord2 Baso ABS# 0.0 K/ul 10/08/2015 Sed Rate Ord21 ESR 20 mm/hr 10/08/2015 Vitamin D 25 Oh Gmf2586 VITAMIN D, 25 HYDROXY 54.28 ng/mL Tsh Ord6 hTSH II 1.72 uIU/mL 09/26/2015 Free T4 Zbg422 FREE T4 0.80 ng/dL 09/26/2015 Comp Metabolic Gec152 NA 133 mEq/L 08/06/2015 Comp Metabolic Fwd615 K 4.6 mEq/L 08/06/2015 Comp Metabolic Agk198 CL 102 mEq/L 08/06/2015 Comp Metabolic Mmh814 CO2 24.0 mEq/L 08/06/2015 Comp Metabolic Fcn768 ANION GAP 12 08/06/2015 Comp Metabolic Akq231 GLUCOSE 105 mg/dL 08/06/2015 Comp Metabolic Kam437 Creat 1.0 mg/dL 08/06/2015 Comp Metabolic Ytn884 eGFR 60 ml/min/1.73m2 08/06/2015 Comp Metabolic Icz557 BUN 28 mg/dL 08/06/2015 Comp Metabolic Pfh228 B/C Ratio 28.6 Ratio 08/06/2015 Comp Metabolic Gzt049 CALCIUM 9.2 mg/dL 08/06/2015 Comp Metabolic Grx808 ALK PHOS 42 U/L 08/06/2015 Comp Metabolic Qkr450 AST(SGOT) 20 U/L 08/06/2015 Comp Metabolic Kbm255 ALT(SGPT) 16 U/L 08/06/2015 Comp Metabolic Hxu494 BILI T 0.3 mg/dL 08/06/2015 Comp Metabolic Bga381 ALBUMIN 4.3 g/dL 08/06/2015 Comp Metabolic Vvm504 TPRO 6.9 g/dL 08/06/2015 Comp Metabolic Zxu938 GLOB 2.7 g/dL 08/06/2015 Comp Metabolic Cvf128 A/G Ratio 1.6 Ratio 08/06/2015 Comp Metabolic Idu666 Osmo 272 mOsmo 08/06/2015 C-Reactive Protein Qnt Crqnt CRP 0.00 mg/dl 08/06/2015 Vitamin D 25 Oh Ewt5334 VITAMIN D, 25 HYDROXY 36.25 ng/mL Cbc [...] 20.4 % 08/06/2015 Cbc With Differential Ord2 MCH 31.7 pg 08/06/2015 Cbc With Differential Ord2 Ogle% 8.9 % 08/06/2015 Cbc With Differential Ord2 [...] 1.31 K/ul 08/06/2015 Cbc With Differential Ord2 Ogle ABS# 0.6 K/ul 08/06/2015 Cbc With Differential [...] Ord93 BILI I 0.4 mg/dL 04/04/2015 %Hba1C Bcc371 % HbA1c 04620-5 5.7 % 04/04/2015 %Hba1C Lcv525 Gluc Ave 117 mg/dL 04/04/2015 Vitamin D 25 Oh Jlz1086 VITAMIN D, 25 HYDROXY 47.62 ng/mL C-Reactive [...] Ord2 RDW 13.0 % 04/04/2015 Comp Metabolic Odv548 NA 132 mEq/L 04/04/2015 Comp Metabolic Llj333 K 4.6 mEq/L 04/04/2015 Comp Metabolic Ubo879 CL 100 mEq/L 04/04/2015 Comp Metabolic Fyz846 CO2 22.0 mEq/L 04/04/2015 Comp Metabolic Cvf481 ANION GAP 15 04/04/2015 Comp Metabolic Dxn870 GLUCOSE 118 mg/dL 04/04/2015 Comp Metabolic Hix737 Creat 1.0 mg/dL 04/04/2015 Comp Metabolic Vye740 eGFR 60 ml/min/1.73m2 04/04/2015 Comp Metabolic Iyr922 BUN 18 mg/dL 04/04/2015 Comp Metabolic Nsy179 B/C Ratio 18.4 Ratio 04/04/2015 Comp Metabolic Yut946 CALCIUM 9.6 mg/dL 04/04/2015 Comp Metabolic Gma016 ALK PHOS 63 U/L 04/04/2015 Comp Metabolic Cef212 AST(SGOT) 17 U/L 04/04/2015 Comp Metabolic Wdi034 ALT(SGPT) 13 U/L 04/04/2015 Comp Metabolic Vbx414 BILI T 0.5 mg/dL 04/04/2015 Comp Metabolic Qyv496 ALBUMIN 4.6 g/dL 04/04/2015 Comp Metabolic Alk930 TPRO 7.4 g/dL 04/04/2015 Comp Metabolic Dlh720 GLOB 2.8 g/dL 04/04/2015 Comp Metabolic Dkx223 A/G Ratio 1.6 Ratio 04/04/2015 Comp Metabolic Inb838 Osmo 268 mOsmo 04/04/2015 Sed Rate Ord21 ESR 16 mm/hr 04/04/2015 Lipid Ord30 CHOL 214 mg/dL 04/04/2015 Lipid Ord30 HDL 61.0 mg/dl 04/04/2015 Lipid Ord30 TRIG 155 mg/dL 04/04/2015 Lipid Ord30 LDL 122 mg/dL 04/04/2015 Lipid Ord30 C/HDL 3.5 Ratio 04/04/2015 %Hba1C Jmr822 % HbA1c 28949-6 5.9 % 11/28/2014 %Hba1C Zba367 Gluc Ave 123 mg/dL 11/28/2014 Cbc With Differential Ord2 WBC 5.9 K/uL [...] With Differential Ord2 RDW 14.8 % 11/27/2014 C-Reactive Protein Qnt Crqnt CRP 0.00 mg/dl 11/27/2014 Metabolic Ord15 NA 135 mEq/L 11/27/2014 [...] 11/27/2014 Metabolic Ord15 CALCIUM 9.7 mg/dL 11/27/2014 Sed Rate Ord21 ESR 19 mm/hr 11/27/2014 Hepatic Thg174 ALBUMIN 4.4 g/dL 11/27/2014 Hepatic Vav383 TPRO 7.0 g/dL 11/27/2014 Hepatic Mqi902 GLOB 2.6 g/dL 11/27/2014 Hepatic Wqr007 A/G Ratio 1.7 Ratio 11/27/2014 Hepatic Wgi270 ALK PHOS 63 U/L 11/27/2014 Hepatic Fcx948 ALT(SGPT) 14 U/L 11/27/2014 Hepatic Mxy449 AST(SGOT) 19 U/L 11/27/2014 Hepatic Nhy226 BILI T 0.4 mg/dL 11/27/2014 Hepatic Kyc713 BILI D 0.1 mg/dL 11/27/2014 Hepatic Pjx454 BILI I 0.3 mg/dL 11/27/2014 Lipid Ord30 CHOL 196 mg/dL 11/27/2014 Lipid Ord30 HDL 60.0 mg/dl 11/27/2014 Lipid Ord30 TRIG 158 mg/dL 11/27/2014 Lipid Ord30 LDL 104 mg/dL 11/27/2014 Lipid Ord30 C/HDL 3.3 Ratio 11/27/2014 Review of Systems System Result Effective Dates Constitutional recent illness 05/17/2018 Constitutional No anorexia 05/17/2018 Constitutional No night sweats 2018 Constitutional No chills 05/17/2018 Constitutional No diaphoresis 05/17/2018 Constitutional fatigue 05/17/2018 Constitutional No fever 05/17/2018 Constitutional malaise 05/17/2018 Eyes No eye discharge 05/17/2018 Eyes eye erythema 05/17/2018 Ears/Nose/Throat/Neck dizziness 2018 Ears/Nose/Throat/Neck No headache 2018 Ears/Nose/Throat/Neck No sore throat 07/2018 Ears/Nose/Throat/Neck No otalgia 2018 Ears/Nose/Throat/Neck No sinus congestion 05/17/2018 Cardiovascular No chest pain/pressure 07/2018 Cardiovascular No dyspnea 05/17/2018 Cardiovascular No edema 05/17/2018 Cardiovascular fatigue 05/17/2018 Cardiovascular hypertension 05/17/2018 Respiratory No cough 05/17/2018 Gastrointestinal No abdominal pain 2018 Gastrointestinal gastroesophageal reflux 05/17/2018 Genitourinary/Nephrology No dysuria 05/17 Musculoskeletal No joint complaint 2018 Neurologic No alteration of consciousness 05/17/2018 Neurologic dizziness 05/17/2018 Psychiatric No anxiety 05/17/2018 Psychiatric No depression 05/17/2018 Eyes vision change 05/17/2018 Constitutional recent illness 01/12/2018 Constitutional No anorexia [...] 1994 Constitutional general appearance Development: well developed 05/17/2018 None Full Exam - General 1994 Constitutional general appearance Development: appears stated age 0205/17/2018 None Full Exam - General 1994 Constitutional general appearance Hygiene/Attention to Grooming: good hygiene 05/17/2018 None Full Exam - General 1994 Eyes conjunctiva /eyelids Overall: conjunctiva clear 05/17/2018 None Full Exam - General 1994 Eyes conjunctiva /eyelids Overall: cornea clear 05/17/2018 None Full Exam - General 1994 Eyes conjunctiva /eyelids Overall: eyelids normal 05/17/2018 None Full Exam - General 1994 Eyes pupils and irises Overall: pupils equal, round, reactive to light and accomodation 05/17/2018 None Full Exam - General 1994 Ears/Nose/Throat otoscopic exam Overall: external auditory canals clear 05/17/2018 None Full Exam - General 1994 Ears/Nose/Throat otoscopic exam Overall: tympanic membranes clear 05/17/2018 None Full Exam - General 1994 Ears/Nose/Throat lips/teeth/gingiva Overall: benign lips 05/17/2018 None Full Exam - General 1994 Ears/Nose/Throat lips/teeth/gingiva Overall: normal dentition 05/17/2018 None Full Exam - General 1995 Ears/Nose/Throat oral cavity/pharynx/larynx Overall: oral mucosa clear 05/17/2018 None Full Exam - General 1995 Ears/Nose/Throat oral cavity/pharynx/larynx Overall: oropharyngeal mucosa clear 05/17/2018 None Full Exam - General 1994 Ears/Nose/Throat oral cavity/pharynx/larynx Overall: hypopharynx benign 05/17/2018 None Full Exam - General 1994 Ears/Nose/Throat oral cavity/pharynx/larynx Overall: no masses 05/17/2018 None Full Exam - General 1994 Respiratory auscultation Overall: breath sounds clear bilaterally 05/17/2018 None Full Exam - General 1994 Respiratory respiratory effort/rhythm Overall: no retractions 05/17/2018 None Full Exam - General 1994 Respiratory respiratory effort/rhythm Overall: normal rate 05/17/2018 None Full Exam - General 1994 Cardiovascular extremities Edema present: severity 1+ - 4 +: trace 05/17/2018 None Full Exam - General 1994 Cardiovascular auscultation of heart Overall: regular rate 05/17/2018 None Full Exam - General 1994 Cardiovascular auscultation of heart Overall: normal heart sounds 05/17/2018 None Full Exam - General 1994 Musculoskeletal spine, ribs and pelvis Overall: good posture 05/17/2018 None Full Exam - General 1994 Musculoskeletal head and neck Overall: head atraumatic 05/17/2018 None Full Exam - General 1994 Musculoskeletal head and neck Overall: cervical spine benign 05/17/2018 None Full Exam - General 1994 Psychiatric orientation/consciousness Overall: oriented to person, place and time 05/17/2018 None Full Exam - General 1994 Psychiatric mood and affect Overall: normal mood and affect 05/17/2018 None Full Exam - General 1994 Abdomen abdominal exam Overall: no tenderness 05/17/2018 None Full Exam - General 1994 Abdomen abdominal exam Overall: normal bowel sounds 05/17/2018 None Full Exam - General 1994 Constitutional [...] accomodation 01/12/2018 None Full Exam - General 1995 Ears/Nose/Throat otoscopic exam Overall: external auditory canals clear 01/12/2018 None Full Exam - General 1994 Ears/Nose/Throat otoscopic exam Overall: tympanic membranes clear 01/12/2018 None Full Exam - General 1995 Ears/Nose/Throat lips/teeth/gingiva Overall: benign lips 01/12/2018 None [...] benign 08/19/2016 None Full Exam - General 1995 Musculoskeletal spine, ribs and pelvis Overall: spine benign 08/19/2016 None Full Exam - General 1995 Musculoskeletal spine, ribs and pelvis Overall: sacroiliac [...] Formatting Model/CDA Sections, Assigned to/Tabitha Velasquez CPT-4: [id number] 12/29/2017 PPPS, SUBSEQ VISIT CPT -4: G0439 09/17/2017 PPPS, SUBSEQ VISIT CPT -4: G0439 08/21/2016 PNEUMOCOCCAL VACC [address]: 69614576 CPT-4: 41711 02/20/2016 ADMIN PNEUMOCOCCAL VACCINE SNOMED CT: 19560852 CPT-4: G0009 02/20/2016 ADMIN INFLUENZA VIRUS VAC CPT-4: G0008 01/23/2016 FLU VACC 4 KATIE 3 YRS PLUS IM SNOMED CT: 51362105 CPT-4: 23208 01/23/2016 PPPS, SUBSEQ VISIT CPT -4: G0439 07/19/2015 Vital Signs Date Vital 05/17/2018 Blood Pressure 1: 112/74 Code : 8480-6 BMI: 30.2 Code : 14481-1 Heart Rate 1 : 64 bpm Height: 5'1" SpO2: 97% Weight: 160 lbs 01/12/2018 Blood Pressure 1: 124/70 Code : 8480-6 BMI: 30.2 Code : 55354-3 Heart Rate 1 : 59 bpm Height: 5'1" SpO2: 98% Weight: 160 lbs 12/29/2017 Blood Pressure 1: 148/82 Code : 8480-6 BMI: 30.4 Code : 30049-8 Heart Rate 1 : 60 bpm Height: 5'1" SpO2: 99% Weight: 161 lbs 09/17/2017 Height: Weight: 08/25/2017 Blood Pressure 1: 130/72 Code : 8480-6 BMI: 29.9 Code : 01881-1 Heart Rate 1 : 70 bpm Height: 5'1" SpO2: 93% Weight: 158 lbs 07/21/2017 Blood Pressure 1: 150/84 Code : 8480-6 BMI: 29.5 Code : 04508-5 Heart Rate 1 : 62 bpm Height: 5'1" SpO2: 98% Weight: 156 lbs 06/17/2017 Blood Pressure 1: 148/86 Code : 8480-6 BMI: 29.5 Code : 52334-9 Heart Rate 1 : 64 bpm Height: 5'1" SpO2: 98% Weight: 156 lbs 02/17/2017 Blood Pressure 1: 144/86 Code : 8480-6 BMI: 28.7 Code : 89434-6 Heart Rate 1 : 64 bpm Height: 5'1" SpO2: 96% Weight: 152 lbs 01/02/2017 Blood Pressure 1: 132/78 Code : 8480-6 BMI: 28.3 Code : 70184-8 Heart Rate 1 : 71 bpm Height: 5'1" SpO2: 97% Weight: 150 lbs 12/05/2016 Blood Pressure 1: 140/76 Code : 8480-6 BMI: 29.5 Code : 16037-7 Heart Rate 1 : 66 bpm Height: 5'1" SpO2: 98% Weight: 156 lbs 08/21/2016 Blood Pressure 1: 142/78 Code : 8480-6 BMI: 29.9 Code : 98069-4 Heart Rate 1 : 62 bpm Height: 5'1" SpO2: 98% Waist Measure (cm): 79 cm Weight: 158 lbs 08/19/2016 Blood Pressure 1: 142/78 Code : 8480-6 BMI: 29.9 Code : 22479-2 Heart Rate 1 : 62 bpm Height: 5'1" SpO2: 98% Weight: 158 lbs 05/20/2016 Blood Pressure 1: 152/76 Code : 8480-6 Blood Pressure 1: 144/80 Code: 8480-6 BMI: 29.3 Code: 39667-8 Heart Rate 1: 60 bpm Height: 5'1" SpO2: 95% Weight: 155 lbs 01/23/2016 Blood Pressure 1: 138/78 Code : 8480-6 BMI: 29.7 Code : 71881-1 Heart Rate 1 : 64 bpm Height: 5'1" SpO2: 98% Weight: 157 lbs 09/26/2015 Blood Pressure 1: 136/76 Code : 8480-6 BMI: 28.3 Code : 41250-4 Heart Rate 1 : 70 bpm Height: 5'1" SpO2: 98% Weight: 150 lbs 08/23/2015 Blood Pressure 1: 126/78 Code : 8480-6 BMI: 27.8 Code : 46893-8 Heart Rate 1 : 68 bpm Height: 5'1" SpO2: 97% Weight: 147 lbs 07/19/2015 Blood Pressure 1: 146/70 Code : 8480-6 BMI: 26.8 Code : 80928-4 Heart Rate 1 : 58 bpm Height: 5'1" SpO2: 96% Waist Measure (cm): 84 cm Weight: 142 lbs 04/17/2015 Blood Pressure 1: 132/62 Code : 8480-6 BMI: 25.3 Code : 16569-4 Heart Rate 1 : 98 bpm Height: 5'1" SpO2: 97% Weight: 134 lbs 03/15/2015 Blood Pressure 1: 158/72 Code : 8480-6 Blood Pressure 1: 160/70 Code: 8480-6 BMI: 25.5 Code: 44606-3 Heart Rate 1: 72 bpm Heart Rate 1: 74 bpm Height: 5'1" Height: SpO2: 98% Weight: 135 lbs Weight: 02/06/2015 Blood Pressure 1: 142/82 Code : 8480-6 BMI: 25.5 Code : 08071-7 Heart Rate 1 : 82 bpm Height: 5'1" SpO2: 96% Weight: 135 lbs 12/13/2014 Blood Pressure 1: 136/64 Code : 8480-6 BMI: 24.9 Code : 60284-2 Heart Rate 1 : 86 bpm Height: 5'1" SpO2: 95% Weight: 132 lbs 10/11/2014 Blood Pressure 1: 140/80 Code : 8480-6 BMI: 25.1 Code : 80257-5 Heart Rate 1 : 72 bpm Height: 5'1" Weight: 133 lbs Functional Status No Functional Status data History of Present Illness Symptom Name Status Result Effective Date Notes Quality chronic 05/17 None Quality primary hypertension 05/17/2018 None Onset and Resolution ongoing 05/17/2018 None Onset of Symptom during adulthood 05/17/2018 None Blood Pressure Values pt checking blood pressure - see scanned document 05/17/2018 None Alleviating Factors medication 05/17/2018 None Pertinent Findings dyspnea 05/17/2018 on exertion Pertinent Findings Denies edema 05/17/2018 None Quality non-insulin dependent 05/17/2018 None Quality chronic 05/17 None Alleviating Factors diet only 05/17/2018 None Exacerbating Factors diet 05/17/2018 None Glucose monitoring daily 05/17/2018 None Test results Pt checking blood glucose at home, see scanned readings 05/17/2018 None Pertinent Findings dizziness 05/17/2018 and feels unsteady Pertinent Findings Denies nausea 05/17/2018 None hypertension Quality chronic 01/12/2018 None hypertension Quality [...] and Resolution ongoing 12/13/2014 chronic fatigue syndrome- seecoty Brooks in diabetes mellitus Quality NIDDM 12/13/2014 [...] and Resolution ongoing 10/11/2014 chronic fatigue syndrome- seecoty Brooks in hypertension Quality intermittent 10/11/2014 None [...] Present Encounters Encounter Performer Location Codes Date ([id number]) 11286 EST. PATIENT, LEVEL IV Diagnosis: Essential (primary) hypertension[ICD10: I10] Diagnosis: Type 2 diabetes mellitus without complications[ICD10: E11.9] Diagnosis: Muscle weakness (generalized)[ICD10: M62.81] Maria Luisa Echeverria MD, [facility] CPT-4: 05182 05/17/2018 ([id number]) 37571 EST. PATIENT, LEVEL III Diagnosis: Essential (primary) hypertension[ICD10: I10] Diagnosis: Type 2 diabetes mellitus without complications[ICD10: E11.9] Diagnosis: Encounter for immunization[ICD10: Z23] Diagnosis: Muscle weakness (generalized)[ICD10: M62.81] Maria Luisa Echeverria MD, [facility] CPT-4: 09176 01/12/2018 ([id number]) 69660 EST. PATIENT, LEVEL IV Diagnosis: Essential (primary) hypertension[ICD10: I10] Diagnosis: Type 2 diabetes mellitus without complications[ICD10: E11.9] Diagnosis: Encounter for immunization[ICD10: Z23] Diagnosis: Muscle weakness (generalized)[ICD10: M62.81] [facility] CPT-4: 31571 12/29/2017 ([id number]) 32795 EST. PATIENT, LEVEL IV Diagnosis: Essential (primary) hypertension[ICD10: I10] Diagnosis: Muscle weakness (generalized)[ICD10: M62.81] Diagnosis: 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 artery[ICD10: I66.01 ] Maria Luisa Echeverria MD, [facility] CPT-4: 68642 08/25/2017 ([id number]) 35789 EST. PATIENT, LEVEL IV Diagnosis: Essential (primary) hypertension[ICD10: I10] Diagnosis: 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 artery[ICD10: I66.01 ] Maria Luisa Echeverria MD, [facility] CPT-4: 66070 07/21/2017 ([id number]) 41608 EST. 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 CPT-4: 26229 06/17/2017 ([id number]) 27357 EST. PATIENT, LEVEL IV Diagnosis: Essential (primary) hypertension[ICD10: I10] Diagnosis: Muscle weakness (generalized)[ICD10: M62.81] Diagnosis: Mixed hyperlipidemia[ICD10: E78.2] Maria Luisa Echeverria MD, [facility] CPT-4: 86704 02/17/2017 ([id number]) 28738 EST. PATIENT, LEVEL III Diagnosis: Essential (primary) hypertension[ICD10: I10] Diagnosis: Muscle weakness (generalized)[ICD10: M62.81] Diamond Echeverria MD, [facility] CPT-4: 94518 01/02/2017 ([id number]) 67194 EST. PATIENT, LEVEL IV Diagnosis: Muscle weakness (generalized)[ICD10: M62.81] Diagnosis: Cerebral infarction, unspecified[ICD10: I63.9] Diagnosis: Essential (primary) hypertension[ICD10: I10] Diagnosis: Gastro-esophageal reflux disease without esophagitis[ICD10: K21.9] Diagnosis: Allergic rhinitis due to pollen[ICD10: J30.1] Diamond Echeverria MD, [facility] CPT-4: 72652 12/05/2016 ([id number]) 69919 EST. PATIENT, LEVEL IV Diagnosis: Essential (primary) hypertension[ICD10: I10] Diagnosis: Type 2 diabetes mellitus without complications[ICD10: E11.9] Maria Luisa Echeverria MD, [facility] CPT-4: 27085 08/19/2016 [id number] EST. PATIENT, LEVEL IV Diagnosis: Essential (primary) hypertension[ICD10: I10] Diagnosis: Type 2 diabetes mellitus without complications[ICD10: E11.9] Diagnosis: Mixed hyperlipidemia[ICD10: E78.2] Ashley Echeverria MD, [facility] CPT-4: 14018 05/20/2016 [id number]) 34850 EST. PATIENT, LEVEL IV Diagnosis: Type 2 diabetes mellitus without complications[ICD10: E11.9] Diagnosis: Family history of other endocrine, nutritional and metabolic diseases [ICD10: Z83.49] Diagnosis: Other fatigue[ICD10: R53.83] Diagnosis: Abnormal weight gain[ICD10: R63.5] Diagnosis: Actinic keratosis[ICD10: L57.0] Maria Luisa Echeverria MD, [facility] CPT- 4: 07652 01/23/2016 [id number] 14275 EST. PATIENT, LEVEL IV Diagnosis: Family history of other endocrine, nutritional and metabolic diseases [ICD10: Z83.49] Diagnosis: Other fatigue[ICD10: R53.83] Diagnosis: Abnormal weight gain[ICD10: R63.5] Diagnosis: Actinic keratosis[ICD10: L57.0] Diagnosis: Type 2 diabetes mellitus without complications[ICD10: E11.9] Maria Luisa Echeverria MD, [facility] CPT-4: 97242 09/26/2015 [id number]) 76472 EST. PATIENT, LEVEL IV Diagnosis: Essential (primary) hypertension[ICD10: I10] Diagnosis: Type 2 diabetes mellitus without complications[ICD10: E11.9] Diagnosis: Other depressive episodes[ICD10: F32.8] Diagnosis: Vitamin D deficiency, unspecified[ICD10: E55.9] Maria Luisa Echeverria MD [facility] CPT-4: 04870 08/23/2015 ([id number]) 13538 EST. PATIENT, LEVEL IV Diagnosis: Essential (primary) hypertension[ICD10: I10] Diagnosis: Benign paroxysmal vertigo, unspecified ear[ICD10: H81.10] Diagnosis: Type 2 diabetes mellitus without complications[ICD10: E11.9] Maria Luisa Echeverria MD, [facility] CPT-4: 67097 04/17/2015 ([id number]) 46987 EST. PATIENT, LEVEL III Diagnosis: Essential (primary) hypertension[ICD10: I10] Diagnosis: Benign paroxysmal vertigo, unspecified ear[ICD10: H81.10] Diamond Echeverria MD , [facility] CPT-4: 05369 03/15/2015 ([id number]) 17700 EST. PATIENT, LEVEL III Diagnosis: Essential (primary) hypertension[ICD10: I10] Diagnosis: Edema, unspecified[ICD10: R60.9] [facility] CPT-4: 16640 02/06/2015 ([id number]) 05046 EST. PATIENT, LEVEL IV Diagnosis: ESSENTIAL HYPERTENSION[ICD9: 401.9] Diagnosis: HYPERLIPIDEMIA[ICD9: 272.4] Diagnosis: DEPRESSIVE DISORDER NEC[ICD9: 311] Diagnosis: ESOPHAGEAL REFLUX[ICD9: 530.81] Diagnosis: RESTLESS LEGS SYNDROME[ICD9: 333.94] Maria Luisa Echeverria MD, [facility] CPT-4: 26194 12/13/2014 ([id number]) OFFICE VISIT, NEW - LEVEL 4 Diagnosis: ESSENTIAL HYPERTENSION[ICD9: 401.9] Diagnosis: HYPERLIPIDEMIA[ICD9: 272.4] Diagnosis: DEPRESSIVE DISORDER NEC[ICD9: 311] Diagnosis: ESOPHAGEAL REFLUX[ICD9: 530.81] Diagnosis: RESTLESS LEGS SYNDROME[ICD9: 333.94] Maria Luisa Echeverria MD, [facility] CPT-4: 48241 10/11/2014 Plan of Care Planned Activity Notes [...] readings are starting to become less controlled. 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 She was encouraged to keep her blood pressure and blood glucose controlled. Generalized weakness - we will get you scheduled for therapy at [facility] - we will try to get you in with [facility] 05/17/2018 Appointment: [phone] (15 min) Moderate 05/17/2018 Patient Education: Patient Medication Summary Completed 05/17/2018 Patient Education: Diabetes Completed 05/17/2018 Visit Plan: Hypertension - improved control - continue with current medications, continue with no added salt diet. Pt has been encouraged to exercise daily. The pt has been advised to call the office if there are any acute concerns about change in blood pressure readings at home. 01/12/2018 Appointment: [phone] [facility] (15 min) Moderate 01/12/2018 Patient Education: Patient [...] she stopped therapy when she left the longterm. She states that she does struggle with her strength. She states that she would rather do activities on her own rather than going to physical therapy. high dose flu shot today due to autoimmune deficiency 12/29/2017 Appointment: Juwan [phone] [facility] (15 min) Moderate 12/29/2017 Patient Education: Patient [...] she stopped therapy when she left the longterm. She states that she does struggle with her strength. She states that she would rather do activities on her own rather than going to physical therapy. 08/25/2017 Appointment: Maria Luisa Echeverria WPtel: [address] [place], [place] [id number] (15 min) Moderate 08/25/2017 Patient Education: Patient [...] therapy. 07/21/2017 Appointment: Maria Luisa Echeverria WPtel: [facility] (15 min) Moderate 07/21/2017 Patient Education: Patient Medication Summary Completed 07/21/2017 Visit Plan: Right Middle Cerebral artery stroke - appt with neurology with Dr. Macario at Neurology. Gait instability - appt with outpt physical therapy Hypertension - stable - continue with current treatment - monitor symptoms DM - diet controlled - 06/17/2017 Appointment: Maria Luisa Echeverria WPtel: [facility] (15 min) Moderate 06/17/2017 Patient Education: Patient [...] medications. 02/17/2017 Appointment: Maria Luisa Echeverria WPtel: [facility] (15 min) Moderate 02/17/2017 Patient Education: Patient Medication Summary Completed 02/17/2017 Care Plan: Referral Order SNOMED-CT : [id number] Pending 02/17/2017 Visit Plan: Hypertension - well controlled - continue with current medications, continue with no added salt diet. Pt has been encouraged to exercise daily. The pt has been advised to call the office if there are any acute concerns about change in blood pressure readings at home. Weakness-recent stroke-strength improving-no changes 01/02/2017 Appointment: Diamond Sawyer WPtel: [phone] [facility] [place] [address] (30 min) Complex 01/02/2017 Patient Education: Patient Medication Summary Completed 01/02/2017 Visit Plan: Hypertension - well controlled - continue with current medications, continue with no added salt diet. Pt has been encouraged to exercise daily. The pt has been advised to call the office if there are any acute concerns about change in blood pressure readings at home. Generalized weakness-gait kocewokizzp-HQB-mdeogfmw PT-patient to use 4 wheeled walker GERD- dysphagia-refer for speech eval-start pepcid twice daily Allergies-chronic- restart allergy pill as directed 12/05/2016 Appointment: Diamond Sawyer WPtel: [facility] [place] [address] (15 min) Moderate 12/05/2016 Patient Education: Patient [...] care surrogate. 08/21/2016 Appointment: Ashley Wooten WPtel: [phone] - Annual Wellness Visit 08/21/2016 Patient Education: [...] controlled. 08/19/2016 Appointment: [phone] (15 min) Moderate 08/19/2016 Patient Education: Patient [...] to medications. 05/20/2016 [facility]ment[phone] [place] (15 min) Moderate 05/20/2016 Patient Education: [...] 01/23/2016 Appointment: Maria Luisa Echeverria WPtel: [phone] [facility] (15 min) Moderate 01/23/2016 Patient Education: Patient [...] home. 09/26/2015 Appointment: Maria Luisa Echeverria WPtel: [phone] [facility] [place] (15 min) Moderate 09/26/2015 Patient Education: [...] Completed 08/23/2015 Appointment: [phone] [facility] [place] (15 min) Moderate 08/22/2015 Appointment: [facility] Lu[phone] (15 min) Moderate 08/15/2015 Visit Plan: Medicare [...] paperwork for health care surrogate. 07/19/2015 Appointment: [facility] - Annual Wellness Visit 07/19/2015 Patient Education: [...] 04/17/2015 Appointment: Maria Lu[facility]verria [phone] [facility] (15 min) Moderate 04/17/2015 Patient Education: Patient [...] medications. 12/13/2014 Appointment: Maria Luisa Echeverria WPtel: [address] [place] [id number] (15 min) Moderate 12/13/2014 Patient Education: Patient [...] medications. 10/11/2014 Appointment: [phone] [place] ([place]) New Patient 10/11/2014 Appointment: Maria Luisa Echeverria [facility]: [phone] [facility] [place] (15 min) Moderate 10/11/2014 Patient Education: [...] she stopped therapy when she left the longterm. She states that she does struggle with her strength. She states that she would rather do activities on her own rather than going to physical therapy. . Diabetes Mellitus - controlled - [...] change in blood pressure readings at home. PEPCID 20MG TWICE DAILY OK TO RESTART ALLERGY PILL SPEECH THERAPY TO EVALUATE AND TREAT . Hypertension - well controlled - continue with current medications, continue with no added salt diet. Pt has been encouraged to exercise daily. The pt has been advised to call the office if there are any acute concerns about change in blood pressure readings at home. Generalized weakness-gait nxxjoskcdke-LIV-equaayub PT-patient to use 4 wheeled walker ZYIL-emtoucckn-pbeqz for speech eval-start pepcid twice daily Kgoqwvyqr-ezccerh-lqtxadm allergy pill as directed . Medicare Exam [...] her [employer] paperwork for health care surrogate. stay off of the amlodipine and start [...] she stopped therapy when she left the longterm. She states that she does struggle with [...] to further attempt to reduce peripheral edema. we will get you scheduled for therapy at [facility] - we will try to get you in with [facility] . Hypertension - well controlled - continue [...] readings are starting to become less controlled. 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 She was encouraged to keep her blood pressure and blood glucose controlled. Generalized weakness - we will get you scheduled for therapy at [facility] - we will try to get you in with [facility]
--- OUTSIDE RECORDS SUMMARY | 2018-07-02 14:20 | XMS REPORT | CCD ---
Author Author [facility] Organization [facility] Address [address] [place] [address] Phone Care Team Providers Care Drug Safety Assistant Name Role Phone PP Unavailable CCM Unavailable Summary Purpose Interface Exchange Insurance Providers Payer name Policy type / Coverage type Covered constitution party ID Effective Begin Date Effective End Date WPS Medicare Part B Medicare Part B [id number] 2017 Unknown [facility] Medicare Part B [id number] Unknown Family history Mother Diagnosis Age At [...] Unknown 5 10/11/[address]: 703422949 Never smoker 10/11/[address]: 151227146 Never drinks alcohol 10/11/2014 Allergies, Adverse Reactions, [...] Fill Instructions losartan 100 mg tablet RxNorm: 600003 Tablet(s) TAKE ONE TABLET BY MOUTH DAILY 05/25/2018 05/19/2019 Active Mirapex 0.5 mg tablet RxNorm: 732892 TAKE ONE TABLET BY MOUTH EVERY NIGHT AT BEDTIME 05/25/2018 01/19/2019 Active Coreg 3.125 mg tablet RxNorm: 257732 1 Tablet(s) QAM 05/11/2018 10/07/2018 Active Lomotil 2.5 mg-0.025 mg tablet RxNorm: 9918064 1 Tablet(s) PO daily as needed 05/11/2018 11/04/2018 Active Plavix 75 mg tablet RxNorm: 769225 TAKE ONE TABLET BY MOUTH DAILY 04/26/2018 12/21/2018 Active Request already responded to by other means (e.g. phone or fax) clonazepam 0.5 mg tablet RxNorm: 751605 Tablet(s) TAKE 2 TABLETS BY MOUTH AT BEDTIME NEEDED 04/19/2018 07/17/2018 Active Plavix 75 mg tablet RxNorm: 222867 Tablet(s) TAKE ONE TABLET BY MOUTH DAILY 04/19/2018 04/25/2018 Inactive Coreg 3.125 mg tablet RxNorm: 601332 TAKE ONE-HALF TABLET BY MOUTH TWICE A DAY 04/19/2018 05/10/2018 Inactive OneTouch Ultra Test strips RxNorm: TEST 1 TIME DAILY 201804/08/2019 Active Benicar 40 mg tablet RxNorm: 104492 1 Tablet(s) PO daily 201707/23/2018 Active This replaces losartan Benicar 40 mg tablet RxNorm: 136740 1 Tablet(s) PO daily 201702/23/2018 Inactive This replaces losartan clonazepam 0.5 mg tablet RxNorm: 058841 Tablet(s) TAKE 2 TABLETS BY MOUTH AT BEDTIME NEEDED 01/20/2018 04/18/2018 Inactive Coreg 3.125 mg tablet RxNorm: 571884 1/2 Tablet(s) PO BID 201704/18/2018 Inactive Mirapex 0.5 mg tablet RxNorm: 875788 TAKE ONE TABLET BY MOUTH EVERY NIGHT AT BEDTIME 12/21/2017 05/19/2018 Inactive folic acid 1 mg tablet RxNorm: 134888 TAKE ONE TABLET BY MOUTH DAILY 12/11/2017 12/05/2018 Active Plavix 75 mg tablet RxNorm: 208132 TAKE ONE TABLET BY MOUTH DAILY 12/11/2017 04/18/2018 Inactive Aspirin Low Dose 81 mg tablet,delayed release RxNorm: 104797 TAKE ONE TABLET BY MOUTH DAILY 11/24/2017 12/28/2017 Inactive Request already responded to by other means (e.g. phone or fax) Aspirin Low Dose 81 mg tablet,delayed release RxNorm: 600114 1 Tablet(s) PO daily 11/18/2017 11/17/2017 Inactive Aspirin Low Dose 81 mg tablet,delayed release RxNorm: 755274 1 Tablet(s) PO daily 11/18/2017 11/23/2017 Inactive clonazepam 0.5 mg tablet RxNorm: 801248 Tablet(s) TAKE 2 TABLETS BY MOUTH AT BEDTIME NEEDED 10/23/2017 04/18/2018 Inactive Lomotil 2.5 mg-0.025 mg tablet RxNorm: 8391963 1 Tablet(s) PO daily as needed 09/28/2017 03/25/2018 Inactive pravastatin 80 mg tablet RxNorm: 457448 TAKE ONE TABLET BY MOUTH EVERY EVENING 08/19/2017 11/11/2018 Active clonazepam 0.5 mg tablet RxNorm: 776411 Tablet(s) TAKE 2 TABLETS BY MOUTH AT BEDTIME NEEDED 07/24/2017 10/20/2017 Inactive Mirapex 0.5 mg tablet RxNorm: 794115 TAKE ONE TABLET BY MOUTH EVERY NIGHT AT BEDTIME 07/23/2017 12/19/2017 Inactive Vitamin D2 50,000 unit capsule RxNorm: 523933 1 Capsule(s) PO QW 07/22/2017 07/21/2017 Inactive Vitamin D2 50,000 unit capsule RxNorm: 651654 1 Capsule(s) PO QW 07/22/2017 10/19/2017 Inactive amlodipine 5 mg tablet RxNorm: 633526 1 Tablet(s) PO daily 01/201812/28/2017 Inactive Refill not appropriate Prozac 40 mg capsule RxNorm: 384676 TAKE ONE CAPSULE BY MOUTH DAILY 06/24/2017 06/18/2018 Active Plavix 75 mg tablet RxNorm: 724326 TAKE ONE TABLET BY MOUTH DAILY 06/18/2017 12/10/2017 Inactive Lomotil 2.5 mg-0.025 mg tablet RxNorm: 3905487 1 Tablet(s) PO daily as needed 06/04/2017 11/17/2017 Inactive losartan 100 mg tablet RxNorm: 558813 TAKE ONE TABLET BY MOUTH DAILY 05/11/2017 02/23/2018 Inactive OneTouch Ultra Test strips RxNorm: TEST 1 TIME DAILY 201704/13/2018 Inactive clonazepam 0.5 mg tablet RxNorm: 439893 Tablet(s) TAKE 2 TABLETS BY MOUTH AT BEDTIME NEEDED 04/14/2017 11/17/2017 Inactive Lomotil 2.5 mg-0.025 mg tablet RxNorm: 2381243 1 Tablet(s) PO daily as needed 03/17/2017 06/03/2017 Inactive Mirapex 0.5 mg tablet RxNorm: 350606 TAKE ONE TABLET BY MOUTH EVERY NIGHT AT BEDTIME 01/19/2017 07/17/2017 Inactive clonazepam 0.5 mg tablet RxNorm: 738074 Tablet(s) TAKE 2 TABLETS BY MOUTH AT BEDTIME NEEDED 01/12/2017 04/09/2017 Inactive tramadol 50 mg tablet RxNorm: 114499 1-2 Tablet(s) PO Q6 PRN pain 12/31/2016 08/24/2017 Inactive folic acid 1 mg tablet RxNorm: 052870 TAKE ONE TABLET BY MOUTH DAILY 12/24/2016 12/10/2017 Inactive tramadol 50 mg tablet RxNorm: 405303 1-2 Tablet(s) PO Q6 PRN pain 12/12/2016 12/16/2016 Inactive tramadol 50 mg tablet RxNorm: 262119 1-2 Tablet(s) PO Q6 PRN pain 12/12/2016 12/11/2016 Inactive clonazepam 0.5 mg tablet RxNorm: 098429 Tablet(s) TAKE 2 TABLETS BY MOUTH AT BEDTIME NEEDED 12/09/2016 01/11/2017 Inactive pravastatin 80 mg tablet RxNorm: 608300 TAKE ONE TABLET BY MOUTH EVERY EVENING 11/11/2016 08/07/2017 Inactive Mirapex 0.5 mg tablet RxNorm: 337952 TAKE ONE TABLET BY MOUTH EVERY NIGHT AT BEDTIME 10/29/2016 01/18/2017 Inactive Prozac 40 mg capsule RxNorm: 423413 TAKE ONE CAPSULE BY MOUTH DAILY 10/29/2016 06/23/2017 Inactive spironolactone 25 mg tablet RxNorm: 457610 TAKE ONE TABLET BY MOUTH DAILY 10/29/2016 12/04/2016 Inactive clonazepam 0.5 mg tablet RxNorm: 546584 Tablet(s) TAKE 2 TABLETS BY MOUTH AT BEDTIME NEEDED 09/24/2016 11/22/2016 Inactive Lomotil 2.5 mg-0.025 mg tablet RxNorm: 7153816 1 Tablet(s) PO daily as needed 07/30/2016 01/23/2017 Inactive sucralfate 1 gram tablet RxNorm: 308430 TAKE ONE-HALF TABLET BY MOUTH TWO TIMES A DAY ONE HOUR BEFORE MEALS 07/28/201608/24 Inactive losartan 100 mg tablet RxNorm: 337175 TAKE ONE TABLET BY MOUTH DAILY 07/28/2016 01/23/2017 Inactive Lialda 1.2 gram tablet,delayed release RxNorm: 116506 3 Tablet(s) PO daily 07/02/2016 08/24/2017 Inactive Mirapex 0.5 mg tablet RxNorm: 450085 TAKE ONE TABLET BY MOUTH EVERY NIGHT AT BEDTIME 06/27/2016 10/24/2016 Inactive clonazepam 0.5 mg tablet RxNorm: 945325 Tablet(s) TAKE 2 TABLETS BY MOUTH AT BEDTIME NEEDED 06/27/2016 01/11/2017 Inactive clonazepam 0.5 mg tablet RxNorm: 19740520 Tablet(s) TAKE 2 TABLETS BY MOUTH AT BEDTIME NEEDED 04/29/2016 06/25/2016 Inactive folic acid 1 mg tablet RxNorm: 642479 TAKE ONE TABLET BY MOUTH DAILY 02/28/2016 11/23/2016 Inactive clonazepam 0.5 mg tablet RxNorm: 19740520 Tablet(s) TAKE 2 TABLETS BY MOUTH AT BEDTIME NEEDED 02/26/2016 01/11/2017 Inactive OneTouch Ultra Test strips RxNorm: TEST ONCE DAILY 02/25/2016 08/22/2016 Inactive sucralfate 1 gram tablet RxNorm: 537062 TAKE ONE-HALF TABLET BY MOUTH TWO TIMES A DAY ONE HOUR BEFORE MEALS 01/28/201607/25 Inactive Mirapex 0.5 mg tablet RxNorm: 119942 TAKE ONE TABLET BY MOUTH EVERY NIGHT AT BEDTIME 01/28/2016 06/25/2016 Inactive spironolactone 25 mg tablet RxNorm: 825892 TAKE ONE TABLET BY MOUTH DAILY 01/28/2016 10/23/2016 Inactive Lomotil 2.5 mg-0.025 mg tablet RxNorm: 0586611 1 Tablet(s) PO daily as needed 12/05/2015 01/11/2017 Inactive Klor-Con M20 mEq tablet,extended release RxNorm: 440070 TAKE ONE TABLET BY MOUTH THREE TIMES A DAY 12/05/2015 08/24/2017 Inactive losartan 100 mg tablet RxNorm: 685114 TAKE ONE TABLET BY MOUTH DAILY 11/22/2015 07/27/2016 Inactive amlodipine 5 mg tablet RxNorm: 114607 TAKE ONE TABLET BY MOUTH DAILY 11/13/2015 11/06/2016 Inactive Refill not appropriate clonazepam 0.5 mg tablet RxNorm: 542429 Tablet(s) TAKE 2 TABLETS BY MOUTH AT BEDTIME NEEDED 11/08/2015 01/11/2017 Inactive clonazepam 0.5 mg tablet RxNorm: 728940 Tablet(s) TAKE 2 TABLETS BY MOUTH AT BEDTIME NEEDED 11/02/2015 01/29/2016 Inactive Prozac 40 mg capsule RxNorm: 596746 1 Capsule(s) PO daily 10/3010/24/2016 Inactive pravastatin 80 mg tablet RxNorm: 098751 1 Tablet(s) PO QPM 10/23/2016 Inactive OneTouch Ultra Test strips RxNorm: TEST ONCE DAILY 10/30/2015 01/27/2016 Inactive Imuran 50 mg tablet RxNorm: 552956 1.5 (75) Tablet(s) PO daily 08/17/2015 08/10/2016 Inactive K75.4 clonazepam 0.5 mg tablet RxNorm: 252898 Tablet(s) TAKE 2 TABLETS BY MOUTH AT BEDTIME NEEDED 08/10/2015 01/11/2017 Inactive Imuran 50 mg tablet RxNorm: 319634 1.5 (75) Tablet(s) PO daily 08/10/2015 08/16/2015 Inactive OneTouch Ultra Test strips RxNorm: TEST ONCE DAILY 08/09/2015 10/29/2015 Inactive Vitamin D2 50,000 unit capsule RxNorm: 534181 1 Capsule(s) PO QW 08/07/2015 01/11/2017 Inactive Mirapex 0.5 mg tablet RxNorm: 963128 Tablet(s) TAKE ONE TABLET BY MOUTH EVERY NIGHT AT BEDTIME 07/19/2015 01/14/2016 Inactive Lomotil 2.5 mg-0.025 mg tablet RxNorm: 9248200 1 Tablet(s) PO daily as needed 06/06/2015 01/11/2017 Inactive clonazepam 0.5 mg tablet RxNorm: 884443 Tablet(s) TAKE 2 TABLETS BY MOUTH AT BEDTIME NEEDED 05/10/2015 08/06/2015 Inactive sucralfate 1 gram tablet RxNorm: 285193 TAKE ONE-HALF TABLET BY MOUTH TWO TIMES A DAY ONE HOUR BEFORE MEALS 05/04/201501/26 Inactive meclizine 25 mg tablet RxNorm: 719985 1/2-1 Tablet(s) PO Q6 PRN 03/15/2015 08/24/2017 Inactive spironolactone 25 mg tablet RxNorm: 977395 1 Tablet(s) PO daily 03/14/2015 01/27/2016 Inactive spironolactone 25 mg tablet RxNorm: 711892 1 Tablet(s) PO daily 03/14/2015 03/13/2015 Inactive clonazepam 0.5 mg tablet RxNorm: 770582 TAKE 2 TABLETS BY MOUTH AT BEDTIME NEEDED 02/08/2015 05/02/2015 Inactive folic acid 1 mg tablet RxNorm: 005002 1 Tablet(s) PO daily 02/01/2016 Inactive clonazepam 0.5 mg tablet RxNorm: 424561 TAKE 2 TABLETS BY MOUTH AT BEDTIME NEEDED 02/06/2015 02/08/2015 Inactive amlodipine 10 mg tablet RxNorm: 920168 1/2 Tablet(s) PO daily 02/06/2015 07/18/2015 Inactive this replaces her 5mg pill OneTouch Ultra Test strips RxNorm: TEST ONCE DAILY 01/30/2015 07/28/2015 Inactive Mirapex 0.5 mg tablet RxNorm: 322338 TAKE ONE TABLET BY MOUTH EVERY NIGHT AT BEDTIME 01/29/2015 07/18/2015 Inactive sucralfate 1 gram tablet RxNorm: 105072 TAKE ONE-HALF TABLET BY MOUTH TWO TIMES A DAY ONE HOUR BEFORE MEALS 01/11/201504/10 Inactive OneTouch Ultra Test strips RxNorm: 1 Miscellaneous daily 11/1401/29/2015 Inactive amlodipine 10 mg tablet RxNorm: 483075 1 Tablet(s) PO daily 02/05/2015 Inactive this replaces her 5mg pill clonazepam 0.5 mg tablet RxNorm: 819324 2 Tablet(s) PO QHS 10/201402/05/2015 Inactive sucralfate 1 gram tablet RxNorm: 524687 1/2 Tablet(s) PO BID 1 hour before meal 10/11/2014 01/08/2015 Inactive losartan 100 mg tablet RxNorm: 837496 1 Tablet(s) PO daily 04/201410/05/2015 Inactive amlodipine 5 mg tablet RxNorm: 863453 1 Tablet(s) PO daily 04/201410/30/2014 Inactive Imuran 50 mg tablet RxNorm: 649581 1.5 (75) Tablet(s) PO daily 10/11/2014 08/09/2015 Inactive Lomotil 2.5 mg-0.025 mg tablet RxNorm: 0106673 1 Tablet(s) PO daily as needed 10/11/2014 06/05/2015 Inactive pravastatin 80 mg tablet RxNorm: 786641 1 Tablet(s) PO QPM 04/201410/05/2015 Inactive Klor-Con M20 mEq tablet,extended release RxNorm: 848752 1 Tablet(s) PO TID 10/11/2014 10/05/2015 Inactive Mirapex 0.5 mg tablet RxNorm: 794862 1 Tablet(s) PO QHS 201401/28/2015 Inactive Prozac 40 mg capsule RxNorm: 128385 1 Capsule(s) PO daily 10/1110/05/2015 Inactive Colazal 750 mg capsule RxNorm: 145386 1 Capsule(s) PO TID No Start Date Active Combigan 0.2 %-0.5 % eye drops RxNorm: 239383 1 Drop(s) ophthalmic (eye) BID No Start Date Active Lumigan 0.01 % eye drops RxNorm: 8259635 1 Drop(s) OPH QHS No Start Date Active Prolia 60 mg/mL subcutaneous syringe RxNorm: 060880 1 Milliliter(s) SQ every 6 months No Start Date Active Vitamin D2 50,000 unit capsule RxNorm: 626585 1 Capsule(s) PO QW No Start Date 08/06/2015 Inactive OneTouch Ultra Test strips RxNorm: 1 Miscellaneous daily No Start Date 11/13/2014 Inactive Plavix 75 mg tablet RxNorm: 340010 1 Tablet(s) PO daily No Start Date 06/17/2017 Inactive Lomotil 2.5 mg-0.025 mg tablet RxNorm: 3689285 1 Tablet(s) PO daily as needed No Start Date 10/10/2014 Inactive folic acid 1 mg tablet RxNorm: 139062 1 Tablet(s) PO daily No Start Date 02/06/2015 Inactive amlodipine 5 mg tablet RxNorm: 530754 1 Tablet(s) PO daily No Start Date 10/10/2014 Inactive Imuran 50 mg tablet RxNorm: 166443 1 1/2 (75) Tablet(s) PO daily No Start Date 10/10/2014 Inactive Boniva 3 mg/3 mL intravenous syringe RxNorm: 587133 Milliliter(s) IV No Start Date 07/18/2015 Inactive potassium chloride 20 meq RxNorm: 653547 1 PO TID No Start Date 10/10/2014 Inactive sucralfate 1 gram tablet RxNorm: 815531 1/2 Tablet(s) PO BID 1 hour before meal No Start Date 10/10/2014 Inactive losartan 100 mg tablet RxNorm: 414752 1 Tablet(s) PO daily No Start Date 10/10/2014 Inactive Vitamin D3 2,000 unit tablet RxNorm: 723230 1 Tablet(s) PO daily No Start Date 08/23/2015 Inactive Calcium + D oral RxNorm: 714330 oral No Start Date 08/24/2017 Inactive Prozac 40 mg capsule RxNorm: 565074 1 Capsule(s) PO daily No Start Date 10/10/2014 Inactive timolol 0.5 % eye drops RxNorm: 423530 1 Drop(s) OPH BID No Start Date 12/28/2017 Inactive clonazepam 0.5 mg tablet RxNorm: 417331 2 Tablet(s) PO QHS No Start Date 10/16/2014 Inactive amlodipine 5 mg tablet RxNorm: 983461 1 Tablet(s) PO daily No Start Date 08/22/2015 Inactive pravastatin 80 mg tablet RxNorm: 122592 1 Tablet(s) PO QPM No Start Date 10/10/2014 Inactive Lialda 1.2 gram tablet,delayed release RxNorm: 802840 3 Tablet(s) PO daily No Start Date 07/01/2016 Inactive Alavert 10 mg disintegrating tablet RxNorm: 864665 1 Tablet(s) PO daily as needed No [...] Code Item Item Code Result Date %Hba1C Htu984 % HbA1c 71691-9 6.3 % 05/10/2018 %Hba1C Qlc309 Gluc Ave 134 mg/dL 05/10/2018 Hepatic Yzl653 ALBUMIN 4.0 g/dL 05/10/2018 Hepatic Omc262 TPRO 6.6 g/dL 05/10/2018 Hepatic Bty127 GLOB 2.6 g/dL 05/10/2018 Hepatic Gcf742 A/G Ratio 1.5 Ratio 05/10/2018 Hepatic Yoq548 ALK PHOS 39 U/L 05/10/2018 Hepatic Tih154 ALT(SGPT) 19 U/L 05/10/2018 Hepatic Ptj705 AST(SGOT) 28 U/L 05/10/2018 Hepatic Kom800 BILI T 0.3 mg/dL 05/10/2018 Hepatic Trt900 BILI D 0.1 mg/dL 05/10/2018 Hepatic Wtj953 BILI I 0.2 mg/dL 05/10/2018 C-Reactive Protein Qnt Crqnt CRP 0.2 mg/dl 04/23/2018 Cbc With Differential Ord2 WBC 5.92 K/ul 04/23/2018 Cbc With Differential Ord2 RBC 4.54 M/ul 04/23/2018 Cbc With Differential Ord2 HGB 14.4 g/dl 04/23/2018 Cbc With Differential Ord2 Neut% 67.9 % 04/23/2018 Cbc With Differential Ord2 HCT 42.3 % 04/23/2018 Cbc With Differential Ord2 MCV 93.2 fl 04/23/2018 Cbc With Differential Ord2 Lymph% 19.8 % 04/23/2018 Cbc With Differential Ord2 MCH 31.7 pg 04/23/2018 Cbc With Differential Ord2 [place]% 10.1 % 04/23/2018 Cbc With Differential Ord2 Eos% 1.7 % 04/23/2018 Cbc With Differential Ord2 MCHC 34.0 pg 04/23/2018 Cbc With Differential Ord2 Baso% 0.5 % 04/23/2018 Cbc With Differential Ord2 PLT 208 K/ul 04/23/2018 Cbc With Differential Ord2 Neut ABS# 4.02 K/ul 04/23/2018 Cbc With Differential Ord2 RDW 13.5 % 04/23/2018 Cbc With Differential Ord2 Lymph ABS# 1.17 K/ul 04/23/2018 Cbc With Differential Ord2 [place] ABS# 0.6 K/ul 04/23/2018 Cbc With Differential Ord2 Eos ABS# 0.1 K/ul 04/23/2018 Cbc With Differential Ord2 Baso ABS# 0.0 K/ul 04/23/2018 Sed Rate Ord21 ESR 19 mm/hr 04/23/2018 Comp Metabolic Qzj580 NA 134 mEq/L 04/23/2018 Comp Metabolic Wuz351 K 4.6 mEq/L 04/23/2018 Comp Metabolic Kvb236 CL 103 mEq/L 04/23/2018 Comp Metabolic Qar857 CO2 22.0 mEq/L 04/23/2018 Comp Metabolic Lgp269 ANION GAP 14 04/23/2018 Comp Metabolic Icg824 GLUCOSE 133 mg/dL 04/23/2018 Comp Metabolic Ygl135 Creat 0.9 mg/dL 04/23/2018 Comp Metabolic Kth026 eGFR 62 ml/min/1.73m2 04/23/2018 Comp Metabolic Sne991 BUN 11 mg/dL 04/23/2018 Comp Metabolic Eqd118 B/C Ratio 11.7 Ratio 04/23/2018 Comp Metabolic Pfc481 CALCIUM 9.0 mg/dL 04/23/2018 Comp Metabolic Cyt299 ALK PHOS 42 U/L 04/23/2018 Comp Metabolic Esh363 AST(SGOT) 44 U/L 04/23/2018 Comp Metabolic Zme380 ALT(SGPT) 25 U/L 04/23/2018 Comp Metabolic Itt820 BILI T 0.4 mg/dL 04/23/2018 Comp Metabolic Atl969 ALBUMIN 4.2 g/dL 04/23/2018 Comp Metabolic Xza580 TPRO 6.6 g/dL 04/23/2018 Comp Metabolic Uzb413 GLOB 2.4 g/dL 04/23/2018 Comp Metabolic Zzz807 A/G Ratio 1.7 Ratio 04/23/2018 Comp Metabolic Lja391 Osmo 270 mOsmo 04/23/2018 Vitamin D 25 Oh Wiw3285 VITAMIN D, 25 HYDROXY 28.88 ng/mL C-Reactive [...] 31.9 pg 02/23/2018 Cbc With Differential Ord2 [place]% 8.8 % 02/23/2018 Cbc With Differential Ord2 Eos% 1.0 % 02/23/2018 Cbc With Differential Ord2 MCHC 34.0 pg 02/23/2018 Cbc With Differential Ord2 Baso% 0.3 % 02/23/2018 Cbc With Differential Ord2 PLT 199 K/ul 02/23/2018 Cbc With Differential Ord2 Neut ABS# 3.99 K/ul 02/23/2018 Cbc With Differential Ord2 RDW 13.5 % 02/23/2018 Cbc With Differential Ord2 Lymph ABS# 1.24 K/ul 02/23/2018 Cbc With Differential Ord2 [place] ABS# 0.5 K/ul 02/23/2018 Cbc With Differential Ord2 Eos ABS# 0.1 K/ul 02/23/2018 Cbc With Differential Ord2 Baso ABS# 0.0 K/ul 02/23/2018 Comp Metabolic Yom830 NA 136 mEq/L 02/23/2018 Comp Metabolic Ugh384 K 4.0 mEq/L 02/23/2018 Comp Metabolic Dme675 CL 105 mEq/L 02/23/2018 Comp Metabolic Gsn486 CO2 20.0 mEq/L 02/23/2018 Comp Metabolic Bgq019 ANION GAP 15 02/23/2018 Comp Metabolic Ksm522 GLUCOSE 129 mg/dL 02/23/2018 Comp Metabolic Xhi836 Creat 0.9 mg/dL 02/23/2018 Comp Metabolic Wve348 eGFR 66 ml/min/1.73m2 02/23/2018 Comp Metabolic Ufy898 BUN 11 mg/dL 02/23/2018 Comp Metabolic Nwm415 B/C Ratio 12.2 Ratio 02/23/2018 Comp Metabolic Riz362 CALCIUM 8.6 mg/dL 02/23/2018 Comp Metabolic Kwo606 ALK PHOS 43 U/L 02/23/2018 Comp Metabolic Oyw415 AST(SGOT) 33 U/L 02/23/2018 Comp Metabolic Eme691 ALT(SGPT) 24 U/L 02/23/2018 Comp Metabolic Pfc226 BILI T 0.5 mg/dL 02/23/2018 Comp Metabolic Npn727 ALBUMIN 4.2 g/dL 02/23/2018 Comp Metabolic Ecy101 TPRO 6.8 g/dL 02/23/2018 Comp Metabolic Gci622 GLOB 2.6 g/dL 02/23/2018 Comp Metabolic Ohy448 A/G Ratio 1.6 Ratio 02/23/2018 Comp Metabolic Pcd672 Osmo 273 mOsmo 02/23/2018 Vitamin D 25 Oh Amz8043 VITAMIN D, 25 HYDROXY 29.25 ng/mL Sed Rate Ord21 ESR 8 mm/hr 02/23/2018 Hepatic Ngm203 ALBUMIN 4.3 g/dL 01/05/2018 Hepatic Hvv533 TPRO 6.7 g/dL 01/05/2018 Hepatic Ccg183 GLOB 2.5 g/dL 01/05/2018 Hepatic Ptk755 A/G Ratio 1.7 Ratio 01/05/2018 Hepatic Npq742 ALK PHOS 53 U/L 01/05/2018 Hepatic Yux821 ALT(SGPT) 31 U/L 01/05/2018 Hepatic Txt719 AST(SGOT) 44 U/L 01/05/2018 Hepatic Ets916 BILI T 0.4 mg/dL 01/05/2018 Hepatic Vsv520 BILI D 0.1 mg/dL 01/05/2018 Hepatic Xls544 BILI I 0.3 mg/dL 01/05/2018 Comp Metabolic Vif349 NA 133 mEq/L 10/20/2017 Comp Metabolic Hij576 K 4.1 mEq/L 10/20/2017 Comp Metabolic Kab430 CL 103 mEq/L 10/20/2017 Comp Metabolic Uhi583 CO2 23.0 mEq/L 10/20/2017 Comp Metabolic Ayc406 ANION GAP 11 10/20/2017 Comp Metabolic Rvg628 GLUCOSE 118 mg/dL 10/20/2017 Comp Metabolic Zxs259 Creat 0.9 mg/dL 10/20/2017 Comp Metabolic Arj104 eGFR 64 ml/min/1.73m2 10/20/2017 Comp Metabolic Mht791 BUN 14 mg/dL 10/20/2017 Comp Metabolic Uyh458 B/C Ratio 15.2 Ratio 10/20/2017 Comp Metabolic Tvl482 CALCIUM 8.8 mg/dL 10/20/2017 Comp Metabolic Fil599 ALK PHOS 43 U/L 10/20/2017 Comp Metabolic Lba819 AST(SGOT) 31 U/L 10/20/2017 Comp Metabolic Qgq051 ALT(SGPT) 25 U/L 10/20/2017 Comp Metabolic Nhp906 BILI T 0.4 mg/dL 10/20/2017 Comp Metabolic Qba585 ALBUMIN 4.1 g/dL 10/20/2017 Comp Metabolic Tpg307 TPRO 6.6 g/dL 10/20/2017 Comp Metabolic Qot482 GLOB 2.5 g/dL 10/20/2017 Comp Metabolic Kxc255 A/G Ratio 1.6 Ratio 10/20/2017 Comp Metabolic Hoi893 Osmo 268 mOsmo 10/20/2017 Vitamin D 25 Oh Hwq8740 VITAMIN D, 25 HYDROXY 42.65 ng/mL C-Reactive [...] 32.0 pg 10/20/2017 Cbc With Differential Ord2 [place]% 8.6 % 10/20/2017 Cbc With Differential Ord2 [...] 1.16 K/ul 10/20/2017 Cbc With Differential Ord2 [place] ABS# 0.5 K/ul 10/20/2017 Cbc With Differential [...] 41.3 % 07/21/2017 Cbc With Differential Ord2 Lymph% 18.7 % 07/21/2017 Cbc With Differential Ord2 MCV 94.9 fl 07/21/2017 Cbc With Differential Ord2 MCH 32.2 pg 07/21/2017 Cbc With Differential Ord2 [place]% 9.7 % 07/21/2017 Cbc With Differential Ord2 Eos% 0.5 % 07/21/2017 Cbc With Differential Ord2 MCHC 33.9 pg 07/21/2017 Cbc With Differential Ord2 PLT 216 K/ul 07/21/2017 Cbc With Differential Ord2 Baso% 0.3 % 07/21/2017 Cbc With Differential Ord2 RDW 13.3 % 07/21/2017 Cbc With Differential Ord2 Neut ABS# 4.54 K/ul 07/21/2017 Cbc With Differential Ord2 Lymph ABS# 1.20 K/ul 07/21/2017 Cbc With Differential Ord2 [place] ABS# 0.6 K/ul 07/21/2017 Cbc With Differential Ord2 Eos ABS# 0.0 K/ul 07/21/2017 Cbc With Differential Ord2 Baso ABS# 0.0 K/ul 07/21/2017 Sed Rate Ord21 ESR 14 mm/hr 07/21/2017 Comp Metabolic Pwf766 NA 135 mEq/L 07/21/2017 Comp Metabolic Zch350 K 4.5 mEq/L 07/21/2017 Comp Metabolic Kdk135 CL 101 mEq/L 07/21/2017 Comp Metabolic Oph061 CO2 26.0 mEq/L 07/21/2017 Comp Metabolic Gwp101 ANION GAP 13 07/21/2017 Comp Metabolic Toy331 GLUCOSE 97 mg/dL 07/21/2017 Comp Metabolic Awc555 Creat 0.9 mg/dL 07/21/2017 Comp Metabolic Gqk951 eGFR 66 ml/min/1.73m2 07/21/2017 Comp Metabolic Car507 BUN 13 mg/dL 07/21/2017 Comp Metabolic Wnr496 B/C Ratio 14.4 Ratio 07/21/2017 Comp Metabolic Alo643 CALCIUM 9.2 mg/dL 07/21/2017 Comp Metabolic Ffp765 ALK PHOS 46 U/L 07/21/2017 Comp Metabolic Hjo396 AST(SGOT) 31 U/L 07/21/2017 Comp Metabolic Jlk157 ALT(SGPT) 19 U/L 07/21/2017 Comp Metabolic Mox127 BILI T 0.5 mg/dL 07/21/2017 Comp Metabolic Pdv244 ALBUMIN 4.5 g/dL 07/21/2017 Comp Metabolic Ryh009 TPRO 7.2 g/dL 07/21/2017 Comp Metabolic Ozi896 GLOB 2.7 g/dL 07/21/2017 Comp Metabolic Ubk124 A/G Ratio 1.7 Ratio 07/21/2017 Comp Metabolic Dmu499 Osmo 270 mOsmo 07/21/2017 Vitamin D 25 Oh Bqj0012 VITAMIN D, 25 HYDROXY 31.39 ng/mL C-Reactive [...] 31.9 pg 04/14/2017 Cbc With Differential Ord2 [place]% 9.1 % 04/14/2017 Cbc With Differential Ord2 [...] 1.47 K/ul 04/14/2017 Cbc With Differential Ord2 [place] ABS# 0.7 K/ul 04/14/2017 Cbc With Differential Ord2 Eos ABS# 0.0 K/ul 04/14/2017 Cbc With Differential Ord2 Baso ABS# 0.0 K/ul 04/14/2017 Comp Metabolic Qcz773 NA 136 mEq/L 04/14/2017 Comp Metabolic Oji523 K 4.4 mEq/L 04/14/2017 Comp Metabolic Vln203 CL 104 mEq/L 04/14/2017 Comp Metabolic Jyo592 CO2 21.0 mEq/L 04/14/2017 Comp Metabolic Qef199 ANION GAP 15 04/14/2017 Comp Metabolic Jkq027 GLUCOSE 112 mg/dL 04/14/2017 Comp Metabolic Anq299 Creat 1.1 mg/dL 04/14/2017 Comp Metabolic Iqs073 eGFR 51 ml/min/1.73m2 04/14/2017 Comp Metabolic Wkr959 BUN 16 mg/dL 04/14/2017 Comp Metabolic Syy751 B/C Ratio 14.3 Ratio 04/14/2017 Comp Metabolic Foi120 CALCIUM 8.9 mg/dL 04/14/2017 Comp Metabolic Ind145 ALK PHOS 39 U/L 04/14/2017 Comp Metabolic Qpr616 AST(SGOT) 24 U/L 04/14/2017 Comp Metabolic Nim054 ALT(SGPT) 18 U/L 04/14/2017 Comp Metabolic Jmb317 BILI T 0.5 mg/dL 04/14/2017 Comp Metabolic Tmm918 ALBUMIN 4.3 g/dL 04/14/2017 Comp Metabolic Mwk214 TPRO 6.8 g/dL 04/14/2017 Comp Metabolic Vyg960 GLOB 2.5 g/dL 04/14/2017 Comp Metabolic Thj676 A/G Ratio 1.7 Ratio 04/14/2017 Comp Metabolic Sfj617 Osmo 274 mOsmo 04/14/2017 Vitamin D 25 Oh Ygh2464 VITAMIN D, 25 HYDROXY 29.88 ng/mL Sed Rate Ord21 ESR 15 mm/hr 04/14/2017 C-Reactive Protein Qnt Crqnt CRP 0.1 mg/dl 04/14/2017 C-Reactive Protein Qnt Crqnt CRP 0.1 mg/dl 02/09/2017 Comp Metabolic Kxf255 NA 135 mEq/L 02/09/2017 Comp Metabolic Gvx511 K 4.4 mEq/L 02/09/2017 Comp Metabolic Lfd397 CL 102 mEq/L 02/09/2017 Comp Metabolic Aen740 CO2 23.0 mEq/L 02/09/2017 Comp Metabolic Wsq222 ANION GAP 14 02/09/2017 Comp Metabolic Fml404 GLUCOSE 98 mg/dL 02/09/2017 Comp Metabolic Sox594 Creat 0.9 mg/dL 02/09/2017 Comp Metabolic Auf611 eGFR 65 ml/min/1.73m2 02/09/2017 Comp Metabolic Mxg266 BUN 18 mg/dL 02/09/2017 Comp Metabolic Irq443 B/C Ratio 19.8 Ratio 02/09/2017 Comp Metabolic Bcd572 CALCIUM 9.2 mg/dL 02/09/2017 Comp Metabolic Rbi631 ALK PHOS 42 U/L 02/09/2017 Comp Metabolic Tio044 AST(SGOT) 24 U/L 02/09/2017 Comp Metabolic Peo664 ALT(SGPT) 16 U/L 02/09/2017 Comp Metabolic Chi232 BILI T 0.4 mg/dL 02/09/2017 Comp Metabolic Crr332 ALBUMIN 4.4 g/dL 02/09/2017 Comp Metabolic Rrp499 TPRO 7.0 g/dL 02/09/2017 Comp Metabolic Zfm115 GLOB 2.6 g/dL 02/09/2017 Comp Metabolic Jfp574 A/G Ratio 1.7 Ratio 02/09/2017 Comp Metabolic Dmn944 Osmo 272 mOsmo 02/09/2017 Cbc With Differential [...] 32.5 pg 02/09/2017 Cbc With Differential Ord2 [place]% 8.7 % 02/09/2017 Cbc With Differential Ord2 [...] 1.06 K/ul 02/09/2017 Cbc With Differential Ord2 [place] ABS# 0.6 K/ul 02/09/2017 Cbc With Differential Ord2 Eos ABS# 0.0 K/ul 02/09/2017 Cbc With Differential Ord2 Baso ABS# 0.0 K/ul 02/09/2017 Vitamin D 25 Oh Ziz0305 VITAMIN D, 25 HYDROXY 36.00 ng/mL Sed Rate Ord21 ESR 16 mm/hr 02/09/2017 %Hba1C Hda299 % HbA1c 55437-8 6.1 % 05/20/2016 %Hba1C Pqr182 Gluc Ave 128 mg/dL 05/20/2016 Lipid Ord30 CHOL 212 mg/dL 05/20/2016 Lipid Ord30 HDL 52.0 mg/dl 05/20/2016 Lipid Ord30 TRIG 149 mg/dL 05/20/2016 Lipid Ord30 LDL 130 mg/dL 05/20/2016 Lipid Ord30 C/HDL 4.1 Ratio 05/20/2016 Comp Metabolic Jql927 NA 134 mEq/L 04/21/2016 Comp Metabolic Kgj369 K 5.0 mEq/L 04/21/2016 Comp Metabolic Fhk841 CL 103 mEq/L 04/21/2016 Comp Metabolic Eui151 CO2 24.0 mEq/L 04/21/2016 Comp Metabolic Huj336 ANION GAP 12 04/21/2016 Comp Metabolic Vea615 GLUCOSE 122 mg/dL 04/21/2016 Comp Metabolic Xzu334 Creat 1.1 mg/dL 04/21/2016 Comp Metabolic Bee495 eGFR 52 ml/min/1.73m2 04/21/2016 Comp Metabolic Neu181 BUN 24 mg/dL 04/21/2016 Comp Metabolic Opw124 B/C Ratio 21.6 Ratio 04/21/2016 Comp Metabolic Lbw488 CALCIUM 9.7 mg/dL 04/21/2016 Comp Metabolic Img998 ALK PHOS 51 U/L 04/21/2016 Comp Metabolic Tua922 AST(SGOT) 23 U/L 04/21/2016 Comp Metabolic Zhu655 ALT(SGPT) 17 U/L 04/21/2016 Comp Metabolic Cmv390 BILI T 0.5 mg/dL 04/21/2016 Comp Metabolic Ogt398 ALBUMIN 4.4 g/dL 04/21/2016 Comp Metabolic Zbn498 TPRO 7.3 g/dL 04/21/2016 Comp Metabolic Rhh735 GLOB 2.9 g/dL 04/21/2016 Comp Metabolic Npw606 A/G Ratio 1.5 Ratio 04/21/2016 Comp Metabolic Rbx897 Osmo 274 mOsmo 04/21/2016 Cbc With Differential [...] 32.0 pg 04/21/2016 Cbc With Differential Ord2 [place]% 9.1 % 04/21/2016 Cbc With Differential Ord2 [...] 1.39 K/ul 04/21/2016 Cbc With Differential Ord2 [place] ABS# 0.6 K/ul 04/21/2016 Cbc With Differential Ord2 Eos ABS# 0.1 K/ul 04/21/2016 Cbc With Differential Ord2 Baso ABS# 0.0 K/ul 04/21/2016 Bili D Ord93 BILI D 0.1 mg/dL 04/21/2016 Bili D Ord93 BILI I 0.4 mg/dL 04/21/2016 Vitamin D 25 Oh Qwk7040 VITAMIN D, 25 HYDROXY 51.65 ng/mL Sed Rate Ord21 ESR 26 mm/hr 04/21/2016 C-Reactive Protein Qnt Crqnt CRP 0.1 mg/dl 04/21/2016 Comp Metabolic Xvf853 NA 133 mEq/L 03/18/2016 Comp Metabolic Rwu898 K 4.9 mEq/L 03/18/2016 Comp Metabolic Yek720 CL 102 mEq/L 03/18/2016 Comp Metabolic Mgs764 CO2 25.0 mEq/L 03/18/2016 Comp Metabolic Mzk949 ANION GAP 11 03/18/2016 Comp Metabolic Jjn322 GLUCOSE 114 mg/dL 03/18/2016 Comp Metabolic Frw163 Creat 1.1 mg/dL 03/18/2016 Comp Metabolic Udq949 eGFR 54 ml/min/1.73m2 03/18/2016 Comp Metabolic Dpx459 BUN 23 mg/dL 03/18/2016 Comp Metabolic Rul504 B/C Ratio 21.3 Ratio 03/18/2016 Comp Metabolic Hth965 CALCIUM 9.7 mg/dL 03/18/2016 Comp Metabolic Bns679 ALK PHOS 54 U/L 03/18/2016 Comp Metabolic Xiq440 AST(SGOT) 21 U/L 03/18/2016 Comp Metabolic Hgb748 ALT(SGPT) 15 U/L 03/18/2016 Comp Metabolic Axv205 BILI T 0.4 mg/dL 03/18/2016 Comp Metabolic Oni620 ALBUMIN 4.4 g/dL 03/18/2016 Comp Metabolic Srg793 TPRO 7.4 g/dL 03/18/2016 Comp Metabolic Ioe110 GLOB 3.0 g/dL 03/18/2016 Comp Metabolic Kqt807 A/G Ratio 1.5 Ratio 03/18/2016 Comp Metabolic Xwh205 Osmo 271 mOsmo 03/18/2016 Vitamin D 25 Oh Dgw6132 VITAMIN D, 25 HYDROXY 46.10 ng/mL Sed Rate Ord21 ESR 26 mm/hr 02/13/2016 Comp Metabolic Oxv120 NA 133 mEq/L 02/13/2016 Comp Metabolic Gte468 K 4.8 mEq/L 02/13/2016 Comp Metabolic Zlu906 CL 104 mEq/L 02/13/2016 Comp Metabolic Tct641 CO2 23.0 mEq/L 02/13/2016 Comp Metabolic Xwu970 ANION GAP 11 02/13/2016 Comp Metabolic Nrp485 GLUCOSE 104 mg/dL 02/13/2016 Comp Metabolic Vgm670 Creat 1.0 mg/dL 02/13/2016 Comp Metabolic Efj850 eGFR 56 ml/min/1.73m2 02/13/2016 Comp Metabolic Fcl055 BUN 25 mg/dL 02/13/2016 Comp Metabolic Wkr034 B/C Ratio 24.0 Ratio 02/13/2016 Comp Metabolic Lep389 CALCIUM 9.1 mg/dL 02/13/2016 Comp Metabolic Cbe329 ALK PHOS 43 U/L 02/13/2016 Comp Metabolic Xzm961 AST(SGOT) 21 U/L 02/13/2016 Comp Metabolic Vvl461 ALT(SGPT) 17 U/L 02/13/2016 Comp Metabolic Cyq597 BILI T 0.4 mg/dL 02/13/2016 Comp Metabolic Bdr044 ALBUMIN 4.3 g/dL 02/13/2016 Comp Metabolic Zpm212 TPRO 7.1 g/dL 02/13/2016 Comp Metabolic Ebv806 GLOB 2.9 g/dL 02/13/2016 Comp Metabolic Ttw299 A/G Ratio 1.5 Ratio 02/13/2016 Comp Metabolic Mme247 Osmo 271 mOsmo 02/13/2016 C-Reactive Protein Qnt [...] 31.6 pg 02/13/2016 Cbc With Differential Ord2 [place]% 9.7 % 02/13/2016 Cbc With Differential Ord2 [...] 1.17 K/ul 02/13/2016 Cbc With Differential Ord2 [place] ABS# 0.6 K/ul 02/13/2016 Cbc With Differential Ord2 Eos ABS# 0.1 K/ul 02/13/2016 Cbc With Differential Ord2 Baso ABS# 0.0 K/ul 02/13/2016 Comp Metabolic Nro592 NA 132 mEq/L 10/08/2015 Comp Metabolic Kgt812 K 4.7 mEq/L 10/08/2015 Comp Metabolic Mcx803 CL 101 mEq/L 10/08/2015 Comp Metabolic Abk957 CO2 24.0 mEq/L 10/08/2015 Comp Metabolic Syi935 ANION GAP 12 10/08/2015 Comp Metabolic Rlb548 GLUCOSE 85 mg/dL 10/08/2015 Comp Metabolic Pgj723 Creat 0.9 mg/dL 10/08/2015 Comp Metabolic Moq137 eGFR 66 ml/min/1.73m2 10/08/2015 Comp Metabolic Hju666 BUN 29 mg/dL 10/08/2015 Comp Metabolic Jay305 B/C Ratio 32.2 Ratio 10/08/2015 Comp Metabolic Twf563 CALCIUM 9.1 mg/dL 10/08/2015 Comp Metabolic Nrb053 ALK PHOS 40 U/L 10/08/2015 Comp Metabolic Srm073 AST(SGOT) 18 U/L 10/08/2015 Comp Metabolic Vyq116 ALT(SGPT) 14 U/L 10/08/2015 Comp Metabolic Bvs258 BILI T 0.3 mg/dL 10/08/2015 Comp Metabolic Ycp838 ALBUMIN 4.1 g/dL 10/08/2015 Comp Metabolic Xuk957 TPRO 6.8 g/dL 10/08/2015 Comp Metabolic Prb464 GLOB 2.7 g/dL 10/08/2015 Comp Metabolic Vvr069 A/G Ratio 1.5 Ratio 10/08/2015 Comp Metabolic Xlp355 Osmo 270 mOsmo 10/08/2015 C-Reactive Protein Qnt Crqnt CRP 1.0 mg/dl 10/08/2015 Cbc With Differential Ord2 WBC 7.45 K/ul 10/08/2015 Cbc With Differential Ord2 RBC 3.98 M/ul 10/08/2015 Cbc With Differential Ord2 HGB 12.5 g/dl 10/08/2015 Cbc With Differential Ord2 Neut% 72.2 % 10/08/2015 Cbc With Differential Ord2 HCT 38.2 % 10/08/2015 Cbc With Differential Ord2 Lymph% 16.6 % 10/08/2015 Cbc With Differential Ord2 MCV 96.0 fl 10/08/2015 Cbc With Differential Ord2 [place]% 10.5 % 10/08/2015 Cbc With Differential Ord2 [...] 1.24 K/ul 10/08/2015 Cbc With Differential Ord2 [place] ABS# 0.8 K/ul 10/08/2015 Cbc With Differential Ord2 Eos ABS# 0.0 K/ul 10/08/2015 Cbc With Differential Ord2 Baso ABS# 0.0 K/ul 10/08/2015 Sed Rate Ord21 ESR 20 mm/hr 10/08/2015 Vitamin D 25 Oh Hmj6640 VITAMIN D, 25 HYDROXY 54.28 ng/mL Tsh Ord6 hTSH II 1.72 uIU/mL 09/26/2015 Free T4 Sdk067 FREE T4 0.80 ng/dL 09/26/2015 Comp Metabolic Sxy870 NA 133 mEq/L 08/06/2015 Comp Metabolic Xtk902 K 4.6 mEq/L 08/06/2015 Comp Metabolic Xjk663 CL 102 mEq/L 08/06/2015 Comp Metabolic Wyj371 CO2 24.0 mEq/L 08/06/2015 Comp Metabolic Ahx253 ANION GAP 12 08/06/2015 Comp Metabolic Iig563 GLUCOSE 105 mg/dL 08/06/2015 Comp Metabolic Qcb394 Creat 1.0 mg/dL 08/06/2015 Comp Metabolic Vrw012 eGFR 60 ml/min/1.73m2 08/06/2015 Comp Metabolic Smk617 BUN 28 mg/dL 08/06/2015 Comp Metabolic Trd269 B/C Ratio 28.6 Ratio 08/06/2015 Comp Metabolic Cyp331 CALCIUM 9.2 mg/dL 08/06/2015 Comp Metabolic Tut639 ALK PHOS 42 U/L 08/06/2015 Comp Metabolic Yfc994 AST(SGOT) 20 U/L 08/06/2015 Comp Metabolic Miz550 ALT(SGPT) 16 U/L 08/06/2015 Comp Metabolic Fwa590 BILI T 0.3 mg/dL 08/06/2015 Comp Metabolic Fui350 ALBUMIN 4.3 g/dL 08/06/2015 Comp Metabolic Lze148 TPRO 6.9 g/dL 08/06/2015 Comp Metabolic Iqj228 GLOB 2.7 g/dL 08/06/2015 Comp Metabolic Rcc079 A/G Ratio 1.6 Ratio 08/06/2015 Comp Metabolic Gpw836 Osmo 272 mOsmo 08/06/2015 C-Reactive Protein Qnt Crqnt CRP 0.00 mg/dl 08/06/2015 Vitamin D 25 Oh Uvs8973 VITAMIN D, 25 HYDROXY 36.25 ng/mL Cbc [...] 20.4 % 08/06/2015 Cbc With Differential Ord2 [place]% 8.9 % 08/06/2015 Cbc With Differential Ord2 [...] 1.31 K/ul 08/06/2015 Cbc With Differential Ord2 [place] ABS# 0.6 K/ul 08/06/2015 Cbc With Differential [...] Ord93 BILI I 0.4 mg/dL 04/04/2015 %Hba1C Jnv265 % HbA1c 75704-6 5.7 % 04/04/2015 %Hba1C Gpm559 Gluc Ave 117 mg/dL 04/04/2015 Vitamin D 25 Oh Dup6330 VITAMIN D, 25 HYDROXY 47.62 ng/mL C-Reactive [...] Ord2 RDW 13.0 % 04/04/2015 Comp Metabolic Nsn138 NA 132 mEq/L 04/04/2015 Comp Metabolic Crm772 K 4.6 mEq/L 04/04/2015 Comp Metabolic Lwf826 CL 100 mEq/L 04/04/2015 Comp Metabolic Zks222 CO2 22.0 mEq/L 04/04/2015 Comp Metabolic Jbp780 ANION GAP 15 04/04/2015 Comp Metabolic Mgn309 GLUCOSE 118 mg/dL 04/04/2015 Comp Metabolic Pjd396 Creat 1.0 mg/dL 04/04/2015 Comp Metabolic Lni658 eGFR 60 ml/min/1.73m2 04/04/2015 Comp Metabolic Xob764 BUN 18 mg/dL 04/04/2015 Comp Metabolic Egx859 B/C Ratio 18.4 Ratio 04/04/2015 Comp Metabolic Zfw900 CALCIUM 9.6 mg/dL 04/04/2015 Comp Metabolic Ylg593 ALK PHOS 63 U/L 04/04/2015 Comp Metabolic Myw587 AST(SGOT) 17 U/L 04/04/2015 Comp Metabolic Erh662 ALT(SGPT) 13 U/L 04/04/2015 Comp Metabolic Xbk021 BILI T 0.5 mg/dL 04/04/2015 Comp Metabolic Dls880 ALBUMIN 4.6 g/dL 04/04/2015 Comp Metabolic Zrt409 TPRO 7.4 g/dL 04/04/2015 Comp Metabolic Edk972 GLOB 2.8 g/dL 04/04/2015 Comp Metabolic Oyy722 A/G Ratio 1.6 Ratio 04/04/2015 Comp Metabolic Wmr560 Osmo 268 mOsmo 04/04/2015 Sed Rate Ord21 ESR 16 mm/hr 04/04/2015 Lipid Ord30 CHOL 214 mg/dL 04/04/2015 Lipid Ord30 HDL 61.0 mg/dl 04/04/2015 Lipid Ord30 TRIG 155 mg/dL 04/04/2015 Lipid Ord30 LDL 122 mg/dL 04/04/2015 Lipid Ord30 C/HDL 3.5 Ratio 04/04/2015 %Hba1C Vgl626 % HbA1c 74271-3 5.9 % 11/28/2014 %Hba1C Wzg040 Gluc Ave 123 mg/dL 11/28/2014 Cbc With [...] Rate Ord21 ESR 19 mm/hr 11/27/2014 Hepatic Iqv984 ALBUMIN 4.4 g/dL 11/27/2014 Hepatic Bcu513 TPRO 7.0 g/dL 11/27/2014 Hepatic Zti572 GLOB 2.6 g/dL 11/27/2014 Hepatic Rup181 A/G Ratio 1.7 Ratio 11/27/2014 Hepatic Zof915 ALK PHOS 63 U/L 11/27/2014 Hepatic Dtl993 ALT(SGPT) 14 U/L 11/27/2014 Hepatic Etf003 AST(SGOT) 19 U/L 11/27/2014 Hepatic Vgg765 BILI T 0.4 mg/dL 11/27/2014 Hepatic Uka709 BILI D 0.1 mg/dL 11/27/2014 Hepatic Mqu607 BILI I 0.3 mg/dL 11/27/2014 Lipid Ord30 [...] 1995 Ears/Nose/Throat oral cavity/pharynx/larynx Overall: hypopharynx benign 05/17/2018 [...] Formatting Model/CDA Sections, Assigned to/Tabitha Velasquez CPT-4: 18447Evcptah 12/29/2017 PPPS, SUBSEQ VISIT CPT -4: G0439 09/17/2017 PPPS, SUBSEQ VISIT CPT -4: G0439 08/21/2016 PNEUMOCOCCAL VACC [address]: 00021103 CPT-4: 94562 02/20/2016 ADMIN PNEUMOCOCCAL VACCINE SNOMED CT: 19478494 CPT-4: G0009 02/20/2016 ADMIN INFLUENZA VIRUS VAC CPT-4: G0008 01/23/2016 FLU VACC 4 KATIE 3 YRS PLUS IM SNOMED CT: 44460136 CPT-4: 66691 01/23/2016 PPPS, SUBSEQ VISIT CPT -4: G0439 07/19/2015 Vital Signs Date Vital 05/17/2018 Blood Pressure 1: 112/74 Code : 8480-6 BMI: 30.2 Code : 70905-3 Heart Rate 1 : 64 bpm Height: 5'1" SpO2: 97% Weight: 160 lbs 01/12/2018 Blood Pressure 1: 124/70 Code : 8480-6 BMI: 30.2 Code : 26585-4 Heart Rate 1 : 59 bpm Height: 5'1" SpO2: 98% Weight: 160 lbs 12/29/2017 Blood Pressure 1: 148/82 Code : 8480-6 BMI: 30.4 Code : 79797-3 Heart Rate 1 : 60 bpm Height: 5'1" SpO2: 99% Weight: 161 lbs 09/17/2017 Height: Weight: 08/25/2017 Blood Pressure 1: 130/72 Code : 8480-6 BMI: 29.9 Code : 62170-0 Heart Rate 1 : 70 bpm Height: 5'1" SpO2: 93% Weight: 158 lbs 07/21/2017 Blood Pressure 1: 150/84 Code : 8480-6 BMI: 29.5 Code : 15342-3 Heart Rate 1 : 62 bpm Height: 5'1" SpO2: 98% Weight: 156 lbs 06/17/2017 Blood Pressure 1: 148/86 Code : 8480-6 BMI: 29.5 Code : 20362-7 Heart Rate 1 : 64 bpm Height: 5'1" SpO2: 98% Weight: 156 lbs 02/17/2017 Blood Pressure 1: 144/86 Code : 8480-6 BMI: 28.7 Code : 35886-3 Heart Rate 1 : 64 bpm Height: 5'1" SpO2: 96% Weight: 152 lbs 01/02/2017 Blood Pressure 1: 132/78 Code : 8480-6 BMI: 28.3 Code : 72787-8 Heart Rate 1 : 71 bpm Height: 5'1" SpO2: 97% Weight: 150 lbs 12/05/2016 Blood Pressure 1: 140/76 Code : 8480-6 BMI: 29.5 Code : 79894-4 Heart Rate 1 : 66 bpm Height: 5'1" SpO2: 98% Weight: 156 lbs 08/21/2016 Blood Pressure 1: 142/78 Code : 8480-6 BMI: 29.9 Code : 95001-0 Heart Rate 1 : 62 bpm Height: 5'1" SpO2: 98% Waist Measure (cm): 79 cm Weight: 158 lbs 08/19/2016 Blood Pressure 1: 142/78 Code : 8480-6 BMI: 29.9 Code : 57175-6 Heart Rate 1 : 62 bpm Height: 5'1" SpO2: 98% Weight: 158 lbs 05/20/2016 Blood Pressure 1: 152/76 Code : 8480-6 Blood Pressure 1: 144/80 Code: 8480-6 BMI: 29.3 Code: 17346-2 Heart Rate 1: 60 bpm Height: 5'1" SpO2: 95% Weight: 155 lbs 01/23/2016 Blood Pressure 1: 138/78 Code : 8480-6 BMI: 29.7 Code : 01721-6 Heart Rate 1 : 64 bpm Height: 5'1" SpO2: 98% Weight: 157 lbs 09/26/2015 Blood Pressure 1: 136/76 Code : 8480-6 BMI: 28.3 Code : 76856-3 Heart Rate 1 : 70 bpm Height: 5'1" SpO2: 98% Weight: 150 lbs 08/23/2015 Blood Pressure 1: 126/78 Code : 8480-6 BMI: 27.8 Code : 22275-6 Heart Rate 1 : 68 bpm Height: 5'1" SpO2: 97% Weight: 147 lbs 07/19/2015 Blood Pressure 1: 146/70 Code : 8480-6 BMI: 26.8 Code : 53951-7 Heart Rate 1 : 58 bpm Height: 5'1" SpO2: 96% Waist Measure (cm): 84 cm Weight: 142 lbs 04/17/2015 Blood Pressure 1: 132/62 Code : 8480-6 BMI: 25.3 Code : 91840-7 Heart Rate 1 : 98 bpm Height: 5'1" SpO2: 97% Weight: 134 lbs 03/15/2015 Blood Pressure 1: 158/72 Code : 8480-6 Blood Pressure 1: 160/70 Code: 8480-6 BMI: 25.5 Code: 16883-1 Heart Rate 1: 74 bpm Heart Rate 1: 72 bpm Height: 5'1" Height: SpO2: 98% Weight: 135 lbs Weight: 02/06/2015 Blood Pressure 1: 142/82 Code : 8480-6 BMI: 25.5 Code : 15263-0 Heart Rate 1 : 82 bpm Height: 5'1" SpO2: 96% Weight: 135 lbs 12/13/2014 Blood Pressure 1: 136/64 Code : 8480-6 BMI: 24.9 Code : 59466-3 Heart Rate 1 : 86 bpm Height: 5'1" SpO2: 95% Weight: 132 lbs 10/11/2014 Blood Pressure 1: 140/80 Code : 8480-6 BMI: 25.1 Code : 81819-4 Heart Rate 1 : 72 bpm Height: [...] Present Encounters Encounter Performer Location Codes Date ([id number]) [id number] EST. PATIENT, LEVEL IV Diagnosis: Essential (primary) hypertension[ICD10: I10] Diagnosis: Type 2 diabetes mellitus without complications[ICD10: E11.9] Diagnosis: Muscle weakness (generalized)[ICD10: M62.81] Maria Luisa Echeverria MD, [facility] CPT-4: 50477 05/17/2018 [id number] 14740 EST. PATIENT, LEVEL III Diagnosis: Essential (primary) hypertension[ICD10: I10] Diagnosis: Type 2 diabetes mellitus without complications[ICD10: E11.9] Diagnosis: Encounter for immunization[ICD10: Z23] Diagnosis: Muscle weakness (generalized)[ICD10: M62.81] Maria Luisa Echeverria MD, [facility] CPT-4: 23354 01/12/2018 [id number]) 76035 EST. PATIENT, LEVEL IV Diagnosis: Essential (primary) hypertension[ICD10: I10] Diagnosis: Type 2 diabetes mellitus without complications[ICD10: E11.9] Diagnosis: Encounter for immunization[ICD10: Z23] Diagnosis: Muscle weakness (generalized)[ICD10: M62.81] Maria Luisa Echeverria MD, [facility] CPT-4: 42564 12/29/2017 [id number]) 20757 EST. PATIENT, LEVEL IV Diagnosis: Essential (primary) hypertension[ICD10: I10] Diagnosis: Muscle weakness (generalized)[ICD10: M62.81] Diagnosis: 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 artery[ICD10: I66.01 ] Maria Luisa Echeverria MD, [facility] CPT-4: 26529 08/25/[id number]) 02847 EST. PATIENT, LEVEL IV Diagnosis: Essential (primary) hypertension[ICD10: I10] Diagnosis: 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 artery[ICD10: I66.01 ] Maria Luisa Echeverria MD [facility] CPT-4: 41020 07/21/2017 ([id number]) 88614 EST. PATIENT, LEVEL IV Diagnosis: Essential (primary) hypertension[ICD10: I10] Diagnosis: Type 2 diabetes mellitus without complications[ICD10: E11.9] Diagnosis: 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 artery[ICD10: I66.01 ] Maria Luisa Echeverria MD [facility] CPT-4: 96193 06/17/2017 ([id number]) 30671 EST. PATIENT, LEVEL IV Diagnosis: Essential (primary) hypertension[ICD10: I10] Diagnosis: Muscle weakness (generalized)[ICD10: M62.81] Diagnosis: Mixed hyperlipidemia[ICD10: E78.2] Maria Luisa Echeverria MD [facility] CPT-4: 14504 02/17/2017 ([id number]) 59760 EST. PATIENT, LEVEL III Diagnosis: Essential (primary) hypertension[ICD10: I10] Diagnosis: Muscle weakness (generalized)[ICD10: M62.81] Diamond Echeverria MD, [facility] CPT-4: 58816 01/02/2017 ([id number]) 55000 EST. PATIENT, LEVEL IV Diagnosis: Muscle weakness (generalized)[ICD10: M62.81] Diagnosis: Cerebral infarction, unspecified[ICD10: I63.9] Diagnosis: Essential (primary) hypertension[ICD10: I10] Diagnosis: Gastro-esophageal reflux disease without esophagitis[ICD10: K21.9] Diagnosis: Allergic rhinitis due to pollen[ICD10: J30.1] Diamond Echeverria MD [facility] CPT-4: 88062 12/05/2016 ([id number]) 40846 EST. PATIENT, LEVEL IV Diagnosis: Essential (primary) hypertension[ICD10: I10] Diagnosis: Type 2 diabetes mellitus without complications[ICD10: E11.9] Maria Luisa Echeverria MD, [facility] CPT-4: 27941 08/19/2016 [id number] EST. PATIENT, LEVEL IV Diagnosis: Essential (primary) hypertension[ICD10: I10] Diagnosis: Type 2 diabetes mellitus without complications[ICD10: E11.9] Diagnosis: Mixed hyperlipidemia[ICD10: E78.2] Ashley Echeverria MD, [facility] CPT-4: 92562 05/20/2016 ([id number]) 18333 EST. PATIENT, LEVEL IV Diagnosis: Type 2 diabetes mellitus without complications[ICD10: E11.9] Diagnosis: Family history of other endocrine, nutritional and metabolic diseases [ICD10: Z83.49] Diagnosis: Other fatigue[ICD10: R53.83] Diagnosis: Abnormal weight gain[ICD10: R63.5] Diagnosis: Actinic keratosis[ICD10: L57.0] Maria Luisa Echeverria MD, [facility] CPT- 4: 45328 01/23/2016 ([id number]) 47237 EST. PATIENT, LEVEL IV Diagnosis: Family history of other endocrine, nutritional and metabolic diseases [ICD10: Z83.49] Diagnosis: Other fatigue[ICD10: R53.83] Diagnosis: Abnormal weight gain[ICD10: R63.5] Diagnosis: Actinic keratosis[ICD10: L57.0] Diagnosis: Type 2 diabetes mellitus without complications[ICD10: E11.9] Maria Luisa Echeverria MD [facility] CPT-4: 62022 09/26/2015 ([id number]) 23884 EST. PATIENT, LEVEL IV Diagnosis: Essential (primary) hypertension[ICD10: I10] Diagnosis: Type 2 diabetes mellitus without complications[ICD10: E11.9] Diagnosis: Other depressive episodes[ICD10: F32.8] Diagnosis: Vitamin D deficiency, unspecified[ICD10: E55.9] Maria Luisa Echeverria MD [facility] CPT-4: 06749 08/23/2015 [id number]) 81622 EST. PATIENT, LEVEL IV Diagnosis: Essential (primary) hypertension[ICD10: I10] Diagnosis: Benign paroxysmal vertigo, unspecified ear[ICD10: H81.10] Diagnosis: Type 2 diabetes mellitus without complications[ICD10: E11.9] Maria Luisa Echeverria MD, [facility] CPT-4: 19410 04/17/2015 ([id number]) 56314 EST. PATIENT, LEVEL III Diagnosis: Essential (primary) hypertension[ICD10: I10] Diagnosis: Benign paroxysmal vertigo, unspecified ear[ICD10: H81.10] Diamond Echeverria MD , [facility] CPT-4: 28733 03/15/2015 ([id number]) 63288 EST. PATIENT, LEVEL III Diagnosis: Essential (primary) hypertension[ICD10: I10] Diagnosis: Edema, unspecified[ICD10: R60.9] Diamond Echeverria MD, [facility] CPT-4: 09358 02/06/2015 ([id number]) 13185 EST. PATIENT, LEVEL IV Diagnosis: ESSENTIAL HYPERTENSION[ICD9: 401.9] Diagnosis: HYPERLIPIDEMIA[ICD9: 272.4] Diagnosis: DEPRESSIVE DISORDER NEC[ICD9: 311] Diagnosis: ESOPHAGEAL REFLUX[ICD9: 530.81] Diagnosis: RESTLESS LEGS SYNDROME[ICD9: 333.94] Maria Luisa Echeverria MD, [facility] CPT-4: 68136 12/13/2014 ([id number]) OFFICE VISIT, NEW - LEVEL 4 Diagnosis: ESSENTIAL HYPERTENSION[ICD9: 401.9] Diagnosis: HYPERLIPIDEMIA[ICD9: 272.4] Diagnosis: DEPRESSIVE DISORDER NEC[ICD9: 311] Diagnosis: ESOPHAGEAL REFLUX[ICD9: 530.81] Diagnosis: RESTLESS LEGS SYNDROME[ICD9: 333.94] Maria Luisa Echeverria MD, [facility] CPT-4: 01959 10/11/2014 Plan of Care Planned Activity Notes [...] Aneta 05/17/2018 Appointment: Maria Luisa Echeverria WPtel: [address] [place], [place] [id number] (15 min) Moderate 05/17/2018 Patient Education: Patient [...] home. 01/12/2018 App[facility]ment[facility] [phone] [facility] ([facility]) Moderate 01/12/2018 Patient Education: Patient [...] she stopped therapy when she left the halfway. She states that she does struggle with her strength. She states that she would rather do activities on her own rather than going to physical therapy. high dose flu shot today due to autoimmune deficiency 12/29/2017 Appointment: [facility] [phone] [facility] ([facility] min) Moderate 12/29/2017 Patient Education: Patient [...] she stopped therapy when she left the halfway. She states that she does struggle with her strength. She states that she would rather do activities on her own rather than going to physical therapy. 08/25/2017 Appointment: [facility] [phone] [phone] ([facility] min) Moderate 08/25/2017 Patient Education: Patient [...] 07/21/2017 Appointment: [facility] [phone] [phone] (15 min) Moderate 07/21/2017 Patient Education: Patient Medication Summary Completed 07/21/2017 Visit Plan: Right Middle Cerebral artery stroke - appt with neurology with Dr. Macario at Neurology. Gait instability - appt with outpt physical therapy Hypertension - stable - continue with current treatment - monitor symptoms DM - diet controlled - 06/17/2017 Appointment: Marai Luisa [facility] [phone] [facility] (15 min) Moderate 06/17/2017 Patient Education: Patient [...] medications. 02/17/2017 Appointment: [facility] [phone] [phone] (15 min) Moderate 02/17/2017 Patient Education: Patient Medication Summary Completed 02/17/2017 Care Plan: Referral Order SNOMED-CT : [id number] Pending 02/17/2017 Visit Plan: Hypertension - well controlled - continue with current medications, continue with no added salt diet. Pt has been encouraged to exercise daily. The pt has been advised to call the office if there are any acute concerns about change in blood pressure readings at home. Weakness-recent stroke-strength improving-no changes 01/02/2017 Appointment: Diamond Sawyer WPtel: [phone] [phone] [place] (30 min) Complex 01/02/2017 Patient Education: Patient Medication Summary Completed 01/02/2017 Visit Plan: Hypertension - well controlled - continue with current medications, continue with no added salt diet. Pt has been encouraged to exercise daily. The pt has been advised to call the office if there are any acute concerns about change in blood pressure readings at home. Generalized weakness-gait tmrpyqhdncm-BWO-uustuiwr PT-patient to use 4 wheeled walker GERD- dysphagia-refer for speech eval-start pepcid twice daily Allergies-chronic- restart allergy pill as directed 12/05/2016 Appointment: [facility] [phone] [phone] (15 min) Moderate 12/05/2016 Patient Education: Patient [...] care surrogate. 08/21/2016 Appointment: Ashley Wooten [facility]el[facility] [phone] [id number] [facility] - Annual Wellness Visit 08/21/2016 [...] controlled. 08/19/2016 Appointment: Maria Luisa Echeverria WPtel: [phone] [facility] (15 min) Moderate 08/19/2016 Patient Education: Patient [...] to medications. 05/20/2016 Appointment: Ashley Wooten WPtel: [phone] [facility] (15 min) Moderate 05/20/2016 Patient Education: Patient [...] 01/23/2016 Appointment: Maria Luisa Echeverria WPtel: [phone] [facility] (15 min) Moderate 01/23/2016 Patient Education: Patient [...] home. 09/26/2015 Appointment: [phone] [facility] ([facility] min) Moderate 09/26/2015 Patient Education: Patient [...] 08/23/2015 Appointment: [facility] [phone] [facility] [place] (15 min) Moderate 08/22/2015 Appointment: Maria Luisa Echeverria WPtel: [phone] [facility] (15 min) Moderate 08/15/2015 Visit Plan: Medicare [...] paperwork for health care surrogate. 07/19/2015 Appointment: [facility] - Annual Wellness Visit 07/19/2015 Patient Education: [...] week. 04/17/2015 Appointment: Maria Luisa Echeverria [facility]el: [facility] [id number] ([facility] min) Moderate 04/17/2015 Patient Education: [...] medications. 12/13/2014 Appointment: Maria Luisa Echeverria [facility]Ptel[id number] (15 min) Moderate 12/13/2014 Patient Education: [...] medications. 10/11/2014 Appointment: [id number] [place] ([place] New Patient 10/11/2014 Appointment: Maria Luisa Echeverria WPtel: [phone] [facility] (15 min) Moderate 10/11/2014 Patient Education: Patient Medication Summary Completed 10/11/2014 Patient Education: Hypertension Completed 10/11/2014 Referral: Lizz Andujar Referral Completed Instructions Comment we will get you scheduled for therapy at [facility] - we will try to get you [...] try to get you in with [facility] DECREASE SODIUM/SALT INTAKE COMPRESSION STOCKINGS INCREASE WATER [...] she stopped therapy when she left the halfway. She states that she does struggle with [...] blood pressure readings at home. Generalized weakness-gait aiyhrrwuahd-UAF-jqmnaxml PT-patient to use 4 wheeled walker JYNK-mfkemgwew-jqfwr for speech eval-start pepcid twice daily Womwbdthq-bxjloez-lmxsuuz allergy pill as directed . Hypertension - [...] she stopped therapy when she left the halfway. She states that she does struggle with [...]
--- OUTSIDE RECORDS SUMMARY | 2018-07-02 14:23 | XMS REPORT | CCD ---
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 Role Phone PP Unavailable CCM Unavailable Summary Purpose Interface Exchange Insurance Providers Payer name Policy type / Coverage type Covered libertarian ID Effective Begin Date Effective End Date WPS Medicare Part B Medicare Part B [id number] 2017 Unknown [facility] Medicare Part B [id number] Unknown Family history Mother Diagnosis Age At [...] Unknown 3 10/11/[address]: 000828400 Never smoker 10/11/[address]: 723489409 Never drinks alcohol 10/11/2014 Allergies, Adverse Reactions, [...] Fill Instructions losartan 100 mg tablet RxNorm: 101292 Tablet(s) TAKE ONE TABLET BY MOUTH DAILY 05/25/2018 05/19/2019 Active Coreg 3.125 mg tablet RxNorm: 286154 1 Tablet(s) QAM 05/11/2018 10/07/2018 Active Lomotil 2.5 mg-0.025 mg tablet RxNorm: 8580055 1 Tablet(s) PO daily as needed 05/11/2018 11/04/2018 Active Plavix 75 mg tablet RxNorm: 419312 TAKE ONE TABLET BY MOUTH DAILY 04/26/2018 12/21/2018 Active Request already responded to by other means (e.g. phone or fax) clonazepam 0.5 mg tablet RxNorm: 688642 Tablet(s) TAKE 2 TABLETS BY MOUTH AT BEDTIME NEEDED 04/19/2018 07/17/2018 Active Plavix 75 mg tablet RxNorm: 313668 Tablet(s) TAKE ONE TABLET BY MOUTH DAILY 04/19/2018 04/25/2018 Inactive Coreg 3.125 mg tablet RxNorm: 298281 TAKE ONE-HALF TABLET BY MOUTH TWICE A DAY 04/19/2018 05/10/2018 Inactive OneTouch Ultra Test strips RxNorm: TEST 1 TIME DAILY 201804/08/2019 Active Benicar 40 mg tablet RxNorm: 681956 1 Tablet(s) PO daily 201707/23/2018 Active This replaces losartan Benicar 40 mg tablet RxNorm: 073176 1 Tablet(s) PO daily 201702/23/2018 Inactive This replaces losartan clonazepam 0.5 mg tablet RxNorm: 767106 Tablet(s) TAKE 2 TABLETS BY MOUTH AT BEDTIME NEEDED 01/20/2018 04/18/2018 Inactive Coreg 3.125 mg tablet RxNorm: 488834 1/2 Tablet(s) PO BID 201704/18/2018 Inactive Mirapex 0.5 mg tablet RxNorm: 821939 TAKE ONE TABLET BY MOUTH EVERY NIGHT AT BEDTIME 12/21/2017 05/19/2018 Inactive folic acid 1 mg tablet RxNorm: 999537 TAKE ONE TABLET BY MOUTH DAILY 12/11/2017 12/05/2018 Active Plavix 75 mg tablet RxNorm: 591849 TAKE ONE TABLET BY MOUTH DAILY 12/11/2017 04/18/2018 Inactive Aspirin Low Dose 81 mg tablet,delayed release RxNorm: 814409 TAKE ONE TABLET BY MOUTH DAILY 11/24/2017 12/28/2017 Inactive Request already responded to by other means (e.g. phone or fax) Aspirin Low Dose 81 mg tablet,delayed release RxNorm: 172347 1 Tablet(s) PO daily 11/18/2017 11/17/2017 Inactive Aspirin Low Dose 81 mg tablet,delayed release RxNorm: 291667 1 Tablet(s) PO daily 11/18/2017 11/23/2017 Inactive clonazepam 0.5 mg tablet RxNorm: 781086 Tablet(s) TAKE 2 TABLETS BY MOUTH AT BEDTIME NEEDED 10/23/2017 04/18/2018 Inactive Lomotil 2.5 mg-0.025 mg tablet RxNorm: 5979952 1 Tablet(s) PO daily as needed 09/28/2017 03/25/2018 Inactive pravastatin 80 mg tablet RxNorm: 609840 TAKE ONE TABLET BY MOUTH EVERY EVENING 08/19/2017 11/11/2018 Active clonazepam 0.5 mg tablet RxNorm: 230282 Tablet(s) TAKE 2 TABLETS BY MOUTH AT BEDTIME NEEDED 07/24/2017 10/20/2017 Inactive Mirapex 0.5 mg tablet RxNorm: 295169 TAKE ONE TABLET BY MOUTH EVERY NIGHT AT BEDTIME 07/23/2017 12/19/2017 Inactive Vitamin D2 50,000 unit capsule RxNorm: 746933 1 Capsule(s) PO QW 07/22/2017 07/21/2017 Inactive Vitamin D2 50,000 unit capsule RxNorm: 100680 1 Capsule(s) PO QW 07/22/2017 10/19/2017 Inactive amlodipine 5 mg tablet RxNorm: 510555 1 Tablet(s) PO daily 01/201812/28/2017 Inactive Refill not appropriate Prozac 40 mg capsule RxNorm: 405839 TAKE ONE CAPSULE BY MOUTH DAILY 06/24/2017 06/18/2018 Active Plavix 75 mg tablet RxNorm: 303426 TAKE ONE TABLET BY MOUTH DAILY 06/18/2017 12/10/2017 Inactive Lomotil 2.5 mg-0.025 mg tablet RxNorm: 8173984 1 Tablet(s) PO daily as needed 06/04/2017 11/17/2017 Inactive losartan 100 mg tablet RxNorm: 668558 TAKE ONE TABLET BY MOUTH DAILY 05/11/2017 02/23/2018 Inactive OneTouch Ultra Test strips RxNorm: TEST 1 TIME DAILY 201704/13/2018 Inactive clonazepam 0.5 mg tablet RxNorm: 835275 Tablet(s) TAKE 2 TABLETS BY MOUTH AT BEDTIME NEEDED 04/14/2017 11/17/2017 Inactive Lomotil 2.5 mg-0.025 mg tablet RxNorm: 7320036 1 Tablet(s) PO daily as needed 03/17/2017 06/03/2017 Inactive Mirapex 0.5 mg tablet RxNorm: 440233 TAKE ONE TABLET BY MOUTH EVERY NIGHT AT BEDTIME 01/19/2017 07/17/2017 Inactive clonazepam 0.5 mg tablet RxNorm: 891421 Tablet(s) TAKE 2 TABLETS BY MOUTH AT BEDTIME NEEDED 01/12/2017 04/09/2017 Inactive tramadol 50 mg tablet RxNorm: 620937 1-2 Tablet(s) PO Q6 PRN pain 12/31/2016 08/24/2017 Inactive folic acid 1 mg tablet RxNorm: 682707 TAKE ONE TABLET BY MOUTH DAILY 12/24/2016 12/10/2017 Inactive tramadol 50 mg tablet RxNorm: 877252 1-2 Tablet(s) PO Q6 PRN pain 12/12/2016 12/16/2016 Inactive tramadol 50 mg tablet RxNorm: 181048 1-2 Tablet(s) PO Q6 PRN pain 12/12/2016 12/11/2016 Inactive clonazepam 0.5 mg tablet RxNorm: 253250 Tablet(s) TAKE 2 TABLETS BY MOUTH AT BEDTIME NEEDED 12/09/2016 01/11/2017 Inactive pravastatin 80 mg tablet RxNorm: 827259 TAKE ONE TABLET BY MOUTH EVERY EVENING 11/11/2016 08/07/2017 Inactive Mirapex 0.5 mg tablet RxNorm: 511383 TAKE ONE TABLET BY MOUTH EVERY NIGHT AT BEDTIME 10/29/2016 01/18/2017 Inactive Prozac 40 mg capsule RxNorm: 811272 TAKE ONE CAPSULE BY MOUTH DAILY 10/29/2016 06/23/2017 Inactive spironolactone 25 mg tablet RxNorm: 336860 TAKE ONE TABLET BY MOUTH DAILY 10/29/2016 12/04/2016 Inactive clonazepam 0.5 mg tablet RxNorm: 175763 Tablet(s) TAKE 2 TABLETS BY MOUTH AT BEDTIME NEEDED 09/24/2016 11/22/2016 Inactive Lomotil 2.5 mg-0.025 mg tablet RxNorm: 1112549 1 Tablet(s) PO daily as needed 07/30/2016 01/23/2017 Inactive sucralfate 1 gram tablet RxNorm: 731061 TAKE ONE-HALF TABLET BY MOUTH TWO TIMES A DAY ONE HOUR BEFORE MEALS 07/28/201608/24 Inactive losartan 100 mg tablet RxNorm: 508061 TAKE ONE TABLET BY MOUTH DAILY 07/28/2016 01/23/2017 Inactive Lialda 1.2 gram tablet,delayed release RxNorm: 379422 3 Tablet(s) PO daily 07/02/2016 08/24/2017 Inactive Mirapex 0.5 mg tablet RxNorm: 099789 TAKE ONE TABLET BY MOUTH EVERY NIGHT AT BEDTIME 06/27/2016 10/24/2016 Inactive clonazepam 0.5 mg tablet RxNorm: 668659 Tablet(s) TAKE 2 TABLETS BY MOUTH AT BEDTIME NEEDED 06/27/2016 01/11/2017 Inactive clonazepam 0.5 mg tablet RxNorm: 19740520 Tablet(s) TAKE 2 TABLETS BY MOUTH AT BEDTIME NEEDED 04/29/2016 06/25/2016 Inactive folic acid 1 mg tablet RxNorm: 766487 TAKE ONE TABLET BY MOUTH DAILY 02/28/2016 11/23/2016 Inactive clonazepam 0.5 mg tablet RxNorm: 19740520 Tablet(s) TAKE 2 TABLETS BY MOUTH AT BEDTIME NEEDED 02/26/2016 01/11/2017 Inactive OneTouch Ultra Test strips RxNorm: TEST ONCE DAILY 02/25/2016 08/22/2016 Inactive sucralfate 1 gram tablet RxNorm: 638069 TAKE ONE-HALF TABLET BY MOUTH TWO TIMES A DAY ONE HOUR BEFORE MEALS 01/28/201607/25 Inactive Mirapex 0.5 mg tablet RxNorm: 207589 TAKE ONE TABLET BY MOUTH EVERY NIGHT AT BEDTIME 01/28/2016 06/25/2016 Inactive spironolactone 25 mg tablet RxNorm: 137007 TAKE ONE TABLET BY MOUTH DAILY 01/28/2016 10/23/2016 Inactive Lomotil 2.5 mg-0.025 mg tablet RxNorm: 2122552 1 Tablet(s) PO daily as needed 12/05/2015 01/11/2017 Inactive Klor-Con M20 mEq tablet,extended release RxNorm: 477130 TAKE ONE TABLET BY MOUTH THREE TIMES A DAY 12/05/2015 08/24/2017 Inactive losartan 100 mg tablet RxNorm: 539782 TAKE ONE TABLET BY MOUTH DAILY 11/22/2015 07/27/2016 Inactive amlodipine 5 mg tablet RxNorm: 338864 TAKE ONE TABLET BY MOUTH DAILY 11/13/2015 11/06/2016 Inactive Refill not appropriate clonazepam 0.5 mg tablet RxNorm: 572743 Tablet(s) TAKE 2 TABLETS BY MOUTH AT BEDTIME NEEDED 11/08/2015 01/11/2017 Inactive clonazepam 0.5 mg tablet RxNorm: 930669 Tablet(s) TAKE 2 TABLETS BY MOUTH AT BEDTIME NEEDED 11/02/2015 01/29/2016 Inactive Prozac 40 mg capsule RxNorm: 699113 1 Capsule(s) PO daily 10/3010/24/2016 Inactive pravastatin 80 mg tablet RxNorm: 113254 1 Tablet(s) PO QPM 10/23/2016 Inactive OneTouch Ultra Test strips RxNorm: TEST ONCE DAILY 10/30/2015 01/27/2016 Inactive Imuran 50 mg tablet RxNorm: 611755 1.5 (75) Tablet(s) PO daily 08/17/2015 08/10/2016 Inactive K75.4 clonazepam 0.5 mg tablet RxNorm: 373989 Tablet(s) TAKE 2 TABLETS BY MOUTH AT BEDTIME NEEDED 08/10/2015 01/11/2017 Inactive Imuran 50 mg tablet RxNorm: 071672 1.5 (75) Tablet(s) PO daily 08/10/2015 08/16/2015 Inactive OneTouch Ultra Test strips RxNorm: TEST ONCE DAILY 08/09/2015 10/29/2015 Inactive Vitamin D2 50,000 unit capsule RxNorm: 647419 1 Capsule(s) PO QW 08/07/2015 01/11/2017 Inactive Mirapex 0.5 mg tablet RxNorm: 954880 Tablet(s) TAKE ONE TABLET BY MOUTH EVERY NIGHT AT BEDTIME 07/19/2015 01/14/2016 Inactive Lomotil 2.5 mg-0.025 mg tablet RxNorm: 8955527 1 Tablet(s) PO daily as needed 06/06/2015 01/11/2017 Inactive clonazepam 0.5 mg tablet RxNorm: 910901 Tablet(s) TAKE 2 TABLETS BY MOUTH AT BEDTIME NEEDED 05/10/2015 08/06/2015 Inactive sucralfate 1 gram tablet RxNorm: 937367 TAKE ONE-HALF TABLET BY MOUTH TWO TIMES A DAY ONE HOUR BEFORE MEALS 05/04/201501/26 Inactive meclizine 25 mg tablet RxNorm: 842491 1/2-1 Tablet(s) PO Q6 PRN 03/15/2015 08/24/2017 Inactive spironolactone 25 mg tablet RxNorm: 019801 1 Tablet(s) PO daily 03/14/2015 01/27/2016 Inactive spironolactone 25 mg tablet RxNorm: 797214 1 Tablet(s) PO daily 03/14/2015 03/13/2015 Inactive clonazepam 0.5 mg tablet RxNorm: 937806 TAKE 2 TABLETS BY MOUTH AT BEDTIME NEEDED 02/08/2015 05/02/2015 Inactive folic acid 1 mg tablet RxNorm: 751725 1 Tablet(s) PO daily 02/01/2016 Inactive clonazepam 0.5 mg tablet RxNorm: 712397 TAKE 2 TABLETS BY MOUTH AT BEDTIME NEEDED 02/06/2015 02/08/2015 Inactive amlodipine 10 mg tablet RxNorm: 514549 1/2 Tablet(s) PO daily 02/06/2015 07/18/2015 Inactive this replaces her 5mg pill OneTouch Ultra Test strips RxNorm: TEST ONCE DAILY 01/30/2015 07/28/2015 Inactive Mirapex 0.5 mg tablet RxNorm: 878013 TAKE ONE TABLET BY MOUTH EVERY NIGHT AT BEDTIME 01/29/2015 07/18/2015 Inactive sucralfate 1 gram tablet RxNorm: 659283 TAKE ONE-HALF TABLET BY MOUTH TWO TIMES A DAY ONE HOUR BEFORE MEALS 01/11/201504/10 Inactive OneTouch Ultra Test strips RxNorm: 1 Miscellaneous daily 11/1401/29/2015 Inactive amlodipine 10 mg tablet RxNorm: 700673 1 Tablet(s) PO daily 02/05/2015 Inactive this replaces her 5mg pill clonazepam 0.5 mg tablet RxNorm: 141409 2 Tablet(s) PO QHS 10/201402/05/2015 Inactive sucralfate 1 gram tablet RxNorm: 423381 1/2 Tablet(s) PO BID 1 hour before meal 10/11/2014 01/08/2015 Inactive losartan 100 mg tablet RxNorm: 405853 1 Tablet(s) PO daily 04/201410/05/2015 Inactive amlodipine 5 mg tablet RxNorm: 800890 1 Tablet(s) PO daily 04/201410/30/2014 Inactive Imuran 50 mg tablet RxNorm: 115749 1.5 (75) Tablet(s) PO daily 10/11/2014 08/09/2015 Inactive Lomotil 2.5 mg-0.025 mg tablet RxNorm: 1598985 1 Tablet(s) PO daily as needed 10/11/2014 06/05/2015 Inactive pravastatin 80 mg tablet RxNorm: 173200 1 Tablet(s) PO QPM 04/201410/05/2015 Inactive Klor-Con M20 mEq tablet,extended release RxNorm: 191675 1 Tablet(s) PO TID 10/11/2014 10/05/2015 Inactive Mirapex 0.5 mg tablet RxNorm: 066807 1 Tablet(s) PO QHS 201401/28/2015 Inactive Prozac 40 mg capsule RxNorm: 193218 1 Capsule(s) PO daily 10/1110/05/2015 Inactive Colazal 750 mg capsule RxNorm: 166196 1 Capsule(s) PO TID No Start Date Active Combigan 0.2 %-0.5 % eye drops RxNorm: 516921 1 Drop(s) ophthalmic (eye) BID No Start Date Active Lumigan 0.01 % eye drops RxNorm: 6769272 1 Drop(s) OPH QHS No Start Date Active Prolia 60 mg/mL subcutaneous syringe RxNorm: 242303 1 Milliliter(s) SQ every 6 months No Start Date Active Vitamin D2 50,000 unit capsule RxNorm: 912906 1 Capsule(s) PO QW No Start Date 08/06/2015 Inactive OneTouch Ultra Test strips RxNorm: 1 Miscellaneous daily No Start Date 11/13/2014 Inactive Plavix 75 mg tablet RxNorm: 529022 1 Tablet(s) PO daily No Start Date 06/17/2017 Inactive Lomotil 2.5 mg-0.025 mg tablet RxNorm: 7855950 1 Tablet(s) PO daily as needed No Start Date 10/10/2014 Inactive folic acid 1 mg tablet RxNorm: 835243 1 Tablet(s) PO daily No Start Date 02/06/2015 Inactive amlodipine 5 mg tablet RxNorm: 756094 1 Tablet(s) PO daily No Start Date 10/10/2014 Inactive Imuran 50 mg tablet RxNorm: 187660 1 1/2 (75) Tablet(s) PO daily No Start Date 10/10/2014 Inactive Boniva 3 mg/3 mL intravenous syringe RxNorm: 780314 Milliliter(s) IV No Start Date 07/18/2015 Inactive potassium chloride 20 meq RxNorm: 533730 1 PO TID No Start Date 10/10/2014 Inactive sucralfate 1 gram tablet RxNorm: 602853 1/2 Tablet(s) PO BID 1 hour before meal No Start Date 10/10/2014 Inactive losartan 100 mg tablet RxNorm: 390679 1 Tablet(s) PO daily No Start Date 10/10/2014 Inactive Vitamin D3 2,000 unit tablet RxNorm: 245093 1 Tablet(s) PO daily No Start Date 08/23/2015 Inactive Calcium + D oral RxNorm: 843227 oral No Start Date 08/24/2017 Inactive Prozac 40 mg capsule RxNorm: 727557 1 Capsule(s) PO daily No Start Date 10/10/2014 Inactive timolol 0.5 % eye drops RxNorm: 955234 1 Drop(s) OPH BID No Start Date 12/28/2017 Inactive clonazepam 0.5 mg tablet RxNorm: 898308 2 Tablet(s) PO QHS No Start Date 10/16/2014 Inactive amlodipine 5 mg tablet RxNorm: 030051 1 Tablet(s) PO daily No Start Date 08/22/2015 Inactive pravastatin 80 mg tablet RxNorm: 257341 1 Tablet(s) PO QPM No Start Date 10/10/2014 Inactive Lialda 1.2 gram tablet,delayed release RxNorm: 437109 3 Tablet(s) PO daily No Start Date 07/01/2016 Inactive Alavert 10 mg disintegrating tablet RxNorm: 938187 1 Tablet(s) PO daily as needed No [...] Code Item Item Code Result Date %Hba1C Xsr385 % HbA1c 59779-2 6.3 % 05/10/2018 %Hba1C Bek195 Gluc Ave 134 mg/dL 05/10/2018 Hepatic Flp411 ALBUMIN 4.0 g/dL 05/10/2018 Hepatic Spi696 TPRO 6.6 g/dL 05/10/2018 Hepatic Ysf451 GLOB 2.6 g/dL 05/10/2018 Hepatic Lhp664 A/G Ratio 1.5 Ratio 05/10/2018 Hepatic Eda944 ALK PHOS 39 U/L 05/10/2018 Hepatic Baq311 ALT(SGPT) 19 U/L 05/10/2018 Hepatic Lxf843 AST(SGOT) 28 U/L 05/10/2018 Hepatic Xhg047 BILI T 0.3 mg/dL 05/10/2018 Hepatic Bgt083 BILI D 0.1 mg/dL 05/10/2018 Hepatic Sjs475 BILI I 0.2 mg/dL 05/10/2018 C-Reactive Protein [...] 31.7 pg 04/23/2018 Cbc With Differential Ord2 [place]% 10.1 % 04/23/2018 Cbc With Differential Ord2 [...] 1.17 K/ul 04/23/2018 Cbc With Differential Ord2 [place] ABS# 0.6 K/ul 04/23/2018 Cbc With Differential Ord2 Eos ABS# 0.1 K/ul 04/23/2018 Cbc With Differential Ord2 Baso ABS# 0.0 K/ul 04/23/2018 Sed Rate Ord21 ESR 19 mm/hr 04/23/2018 Comp Metabolic Pqe042 NA 134 mEq/L 04/23/2018 Comp Metabolic Hjy713 K 4.6 mEq/L 04/23/2018 Comp Metabolic Goh560 CL 103 mEq/L 04/23/2018 Comp Metabolic Jea721 CO2 22.0 mEq/L 04/23/2018 Comp Metabolic Xnr588 ANION GAP 14 04/23/2018 Comp Metabolic Gce314 GLUCOSE 133 mg/dL 04/23/2018 Comp Metabolic Nrq910 Creat 0.9 mg/dL 04/23/2018 Comp Metabolic Zui641 eGFR 62 ml/min/1.73m2 04/23/2018 Comp Metabolic Ywj917 BUN 11 mg/dL 04/23/2018 Comp Metabolic Rxo009 B/C Ratio 11.7 Ratio 04/23/2018 Comp Metabolic Obp773 CALCIUM 9.0 mg/dL 04/23/2018 Comp Metabolic Yje636 ALK PHOS 42 U/L 04/23/2018 Comp Metabolic Vej654 AST(SGOT) 44 U/L 04/23/2018 Comp Metabolic Yxb363 ALT(SGPT) 25 U/L 04/23/2018 Comp Metabolic Jrx794 BILI T 0.4 mg/dL 04/23/2018 Comp Metabolic Fho213 ALBUMIN 4.2 g/dL 04/23/2018 Comp Metabolic Vno756 TPRO 6.6 g/dL 04/23/2018 Comp Metabolic Hle036 GLOB 2.4 g/dL 04/23/2018 Comp Metabolic Ifa661 A/G Ratio 1.7 Ratio 04/23/2018 Comp Metabolic Nnc304 Osmo 270 mOsmo 04/23/2018 Vitamin D 25 Oh Tya5405 VITAMIN D, 25 HYDROXY 28.88 ng/mL C-Reactive [...] 31.9 pg 02/23/2018 Cbc With Differential Ord2 [place]% 8.8 % 02/23/2018 Cbc With Differential Ord2 [...] 1.24 K/ul 02/23/2018 Cbc With Differential Ord2 [place] ABS# 0.5 K/ul 02/23/2018 Cbc With Differential Ord2 Eos ABS# 0.1 K/ul 02/23/2018 Cbc With Differential Ord2 Baso ABS# 0.0 K/ul 02/23/2018 Comp Metabolic Fmn102 NA 136 mEq/L 02/23/2018 Comp Metabolic Mfj944 K 4.0 mEq/L 02/23/2018 Comp Metabolic Roe393 CL 105 mEq/L 02/23/2018 Comp Metabolic Hnr227 CO2 20.0 mEq/L 02/23/2018 Comp Metabolic Erj591 ANION GAP 15 02/23/2018 Comp Metabolic Efs063 GLUCOSE 129 mg/dL 02/23/2018 Comp Metabolic Ems313 Creat 0.9 mg/dL 02/23/2018 Comp Metabolic Lnb340 eGFR 66 ml/min/1.73m2 02/23/2018 Comp Metabolic Ggn454 BUN 11 mg/dL 02/23/2018 Comp Metabolic Zgg170 B/C Ratio 12.2 Ratio 02/23/2018 Comp Metabolic Prh408 CALCIUM 8.6 mg/dL 02/23/2018 Comp Metabolic Djy763 ALK PHOS 43 U/L 02/23/2018 Comp Metabolic Aho167 AST(SGOT) 33 U/L 02/23/2018 Comp Metabolic Tvv365 ALT(SGPT) 24 U/L 02/23/2018 Comp Metabolic Wqv057 BILI T 0.5 mg/dL 02/23/2018 Comp Metabolic Rox755 ALBUMIN 4.2 g/dL 02/23/2018 Comp Metabolic Mgb195 TPRO 6.8 g/dL 02/23/2018 Comp Metabolic Rwl169 GLOB 2.6 g/dL 02/23/2018 Comp Metabolic Xif784 A/G Ratio 1.6 Ratio 02/23/2018 Comp Metabolic Jsx157 Osmo 273 mOsmo 02/23/2018 Vitamin D 25 Oh Ebo8664 VITAMIN D, 25 HYDROXY 29.25 ng/mL Sed Rate Ord21 ESR 8 mm/hr 02/23/2018 Hepatic Iho523 ALBUMIN 4.3 g/dL 01/05/2018 Hepatic Mgd604 TPRO 6.7 g/dL 01/05/2018 Hepatic Xvl138 GLOB 2.5 g/dL 01/05/2018 Hepatic Qua402 A/G Ratio 1.7 Ratio 01/05/2018 Hepatic Btm901 ALK PHOS 53 U/L 01/05/2018 Hepatic Ans211 ALT(SGPT) 31 U/L 01/05/2018 Hepatic Tuj576 AST(SGOT) 44 U/L 01/05/2018 Hepatic Kqq138 BILI T 0.4 mg/dL 01/05/2018 Hepatic Pvw598 BILI D 0.1 mg/dL 01/05/2018 Hepatic Vxa176 BILI I 0.3 mg/dL 01/05/2018 Comp Metabolic Rsx876 NA 133 mEq/L 10/20/2017 Comp Metabolic Bje787 K 4.1 mEq/L 10/20/2017 Comp Metabolic Qji497 CL 103 mEq/L 10/20/2017 Comp Metabolic Atl888 CO2 23.0 mEq/L 10/20/2017 Comp Metabolic Jih617 ANION GAP 11 10/20/2017 Comp Metabolic Sgz058 GLUCOSE 118 mg/dL 10/20/2017 Comp Metabolic Tnf691 Creat 0.9 mg/dL 10/20/2017 Comp Metabolic Cfq191 eGFR 64 ml/min/1.73m2 10/20/2017 Comp Metabolic Pke647 BUN 14 mg/dL 10/20/2017 Comp Metabolic Ukd605 B/C Ratio 15.2 Ratio 10/20/2017 Comp Metabolic Jqo715 CALCIUM 8.8 mg/dL 10/20/2017 Comp Metabolic Hlg433 ALK PHOS 43 U/L 10/20/2017 Comp Metabolic Fod534 AST(SGOT) 31 U/L 10/20/2017 Comp Metabolic Mug744 ALT(SGPT) 25 U/L 10/20/2017 Comp Metabolic Iez448 BILI T 0.4 mg/dL 10/20/2017 Comp Metabolic Ole187 ALBUMIN 4.1 g/dL 10/20/2017 Comp Metabolic Rtt006 TPRO 6.6 g/dL 10/20/2017 Comp Metabolic Xyy810 GLOB 2.5 g/dL 10/20/2017 Comp Metabolic Kxm411 A/G Ratio 1.6 Ratio 10/20/2017 Comp Metabolic Hzd575 Osmo 268 mOsmo 10/20/2017 Vitamin D 25 Oh Luj2418 VITAMIN D, 25 HYDROXY 42.65 ng/mL C-Reactive [...] 32.0 pg 10/20/2017 Cbc With Differential Ord2 [place]% 8.6 % 10/20/2017 Cbc With Differential Ord2 [...] 1.16 K/ul 10/20/2017 Cbc With Differential Ord2 [place] ABS# 0.5 K/ul 10/20/2017 Cbc With Differential [...] 32.2 pg 07/21/2017 Cbc With Differential Ord2 [place]% 9.7 % 07/21/2017 Cbc With Differential Ord2 [...] 1.20 K/ul 07/21/2017 Cbc With Differential Ord2 [place] ABS# 0.6 K/ul 07/21/2017 Cbc With Differential Ord2 Eos ABS# 0.0 K/ul 07/21/2017 Cbc With Differential Ord2 Baso ABS# 0.0 K/ul 07/21/2017 Sed Rate Ord21 ESR 14 mm/hr 07/21/2017 Comp Metabolic Ivr075 NA 135 mEq/L 07/21/2017 Comp Metabolic Fdg539 K 4.5 mEq/L 07/21/2017 Comp Metabolic Ght427 CL 101 mEq/L 07/21/2017 Comp Metabolic Dht916 CO2 26.0 mEq/L 07/21/2017 Comp Metabolic Xow065 ANION GAP 13 07/21/2017 Comp Metabolic Bbo091 GLUCOSE 97 mg/dL 07/21/2017 Comp Metabolic Sbp298 Creat 0.9 mg/dL 07/21/2017 Comp Metabolic Elu594 eGFR 66 ml/min/1.73m2 07/21/2017 Comp Metabolic Dbl185 BUN 13 mg/dL 07/21/2017 Comp Metabolic Rel770 B/C Ratio 14.4 Ratio 07/21/2017 Comp Metabolic Sop862 CALCIUM 9.2 mg/dL 07/21/2017 Comp Metabolic Qpx258 ALK PHOS 46 U/L 07/21/2017 Comp Metabolic Vvk214 AST(SGOT) 31 U/L 07/21/2017 Comp Metabolic Qxm943 ALT(SGPT) 19 U/L 07/21/2017 Comp Metabolic Bxd978 BILI T 0.5 mg/dL 07/21/2017 Comp Metabolic Rvd391 ALBUMIN 4.5 g/dL 07/21/2017 Comp Metabolic Dqs902 TPRO 7.2 g/dL 07/21/2017 Comp Metabolic Tmt996 GLOB 2.7 g/dL 07/21/2017 Comp Metabolic Unk653 A/G Ratio 1.7 Ratio 07/21/2017 Comp Metabolic Dar592 Osmo 270 mOsmo 07/21/2017 Vitamin D 25 Oh Lek6930 VITAMIN D, 25 HYDROXY 31.39 ng/mL C-Reactive [...] 31.9 pg 04/14/2017 Cbc With Differential Ord2 [place]% 9.1 % 04/14/2017 Cbc With Differential Ord2 [...] 1.47 K/ul 04/14/2017 Cbc With Differential Ord2 [place] ABS# 0.7 K/ul 04/14/2017 Cbc With Differential Ord2 Eos ABS# 0.0 K/ul 04/14/2017 Cbc With Differential Ord2 Baso ABS# 0.0 K/ul 04/14/2017 Comp Metabolic Exn948 NA 136 mEq/L 04/14/2017 Comp Metabolic Ase022 K 4.4 mEq/L 04/14/2017 Comp Metabolic Gjx172 CL 104 mEq/L 04/14/2017 Comp Metabolic Cab443 CO2 21.0 mEq/L 04/14/2017 Comp Metabolic Xwu749 ANION GAP 15 04/14/2017 Comp Metabolic Cby597 GLUCOSE 112 mg/dL 04/14/2017 Comp Metabolic Mpm584 Creat 1.1 mg/dL 04/14/2017 Comp Metabolic Vac122 eGFR 51 ml/min/1.73m2 04/14/2017 Comp Metabolic Rmi244 BUN 16 mg/dL 04/14/2017 Comp Metabolic Syv802 B/C Ratio 14.3 Ratio 04/14/2017 Comp Metabolic Car326 CALCIUM 8.9 mg/dL 04/14/2017 Comp Metabolic Jlv089 ALK PHOS 39 U/L 04/14/2017 Comp Metabolic Okk696 AST(SGOT) 24 U/L 04/14/2017 Comp Metabolic Qkf086 ALT(SGPT) 18 U/L 04/14/2017 Comp Metabolic Qrv070 BILI T 0.5 mg/dL 04/14/2017 Comp Metabolic Mus070 ALBUMIN 4.3 g/dL 04/14/2017 Comp Metabolic Fnu949 TPRO 6.8 g/dL 04/14/2017 Comp Metabolic Aby520 GLOB 2.5 g/dL 04/14/2017 Comp Metabolic Oyc174 A/G Ratio 1.7 Ratio 04/14/2017 Comp Metabolic Fwg095 Osmo 274 mOsmo 04/14/2017 Vitamin D 25 Oh Pxv9187 VITAMIN D, 25 HYDROXY 29.88 ng/mL Sed Rate Ord21 ESR 15 mm/hr 04/14/2017 C-Reactive Protein Qnt Crqnt CRP 0.1 mg/dl 04/14/2017 C-Reactive Protein Qnt Crqnt CRP 0.1 mg/dl 02/09/2017 Comp Metabolic Wyy242 NA 135 mEq/L 02/09/2017 Comp Metabolic Qzk827 K 4.4 mEq/L 02/09/2017 Comp Metabolic Vfu466 CL 102 mEq/L 02/09/2017 Comp Metabolic Avl430 CO2 23.0 mEq/L 02/09/2017 Comp Metabolic Slf907 ANION GAP 14 02/09/2017 Comp Metabolic Fzr025 GLUCOSE 98 mg/dL 02/09/2017 Comp Metabolic Wec781 Creat 0.9 mg/dL 02/09/2017 Comp Metabolic Tqf316 eGFR 65 ml/min/1.73m2 02/09/2017 Comp Metabolic Rya636 BUN 18 mg/dL 02/09/2017 Comp Metabolic Drr682 B/C Ratio 19.8 Ratio 02/09/2017 Comp Metabolic Fcn748 CALCIUM 9.2 mg/dL 02/09/2017 Comp Metabolic Fkc011 ALK PHOS 42 U/L 02/09/2017 Comp Metabolic Fuv396 AST(SGOT) 24 U/L 02/09/2017 Comp Metabolic Flg841 ALT(SGPT) 16 U/L 02/09/2017 Comp Metabolic Txz782 BILI T 0.4 mg/dL 02/09/2017 Comp Metabolic Tuf191 ALBUMIN 4.4 g/dL 02/09/2017 Comp Metabolic Xzm063 TPRO 7.0 g/dL 02/09/2017 Comp Metabolic Lcc026 GLOB 2.6 g/dL 02/09/2017 Comp Metabolic Hvm061 A/G Ratio 1.7 Ratio 02/09/2017 Comp Metabolic Yqi432 Osmo 272 mOsmo 02/09/2017 Cbc With Differential [...] 32.5 pg 02/09/2017 Cbc With Differential Ord2 [place]% 8.7 % 02/09/2017 Cbc With Differential Ord2 [...] 1.06 K/ul 02/09/2017 Cbc With Differential Ord2 [place] ABS# 0.6 K/ul 02/09/2017 Cbc With Differential Ord2 Eos ABS# 0.0 K/ul 02/09/2017 Cbc With Differential Ord2 Baso ABS# 0.0 K/ul 02/09/2017 Vitamin D 25 Oh [id number] VITAMIN D, 25 HYDROXY 36.00 ng/mL Sed Rate Ord21 ESR 16 mm/hr 02/09/2017 %Hba1C Bkv727 % HbA1c 87183-7 6.1 % 05/20/2016 %Hba1C Ekd262 Gluc Ave 128 mg/dL 05/20/2016 Lipid Ord30 CHOL 212 mg/dL 05/20/2016 Lipid Ord30 HDL 52.0 mg/dl 05/20/2016 Lipid Ord30 TRIG 149 mg/dL 05/20/2016 Lipid Ord30 LDL 130 mg/dL 05/20/2016 Lipid Ord30 C/HDL 4.1 Ratio 05/20/2016 Comp Metabolic Opj952 NA 134 mEq/L 04/21/2016 Comp Metabolic Pyz169 K 5.0 mEq/L 04/21/2016 Comp Metabolic Sot642 CL 103 mEq/L 04/21/2016 Comp Metabolic Vvc762 CO2 24.0 mEq/L 04/21/2016 Comp Metabolic Tmy111 ANION GAP 12 04/21/2016 Comp Metabolic Vfv003 GLUCOSE 122 mg/dL 04/21/2016 Comp Metabolic Nhs346 Creat 1.1 mg/dL 04/21/2016 Comp Metabolic Eac986 eGFR 52 ml/min/1.73m2 04/21/2016 Comp Metabolic Emn403 BUN 24 mg/dL 04/21/2016 Comp Metabolic Fnm738 B/C Ratio 21.6 Ratio 04/21/2016 Comp Metabolic Kyc023 CALCIUM 9.7 mg/dL 04/21/2016 Comp Metabolic Pba516 ALK PHOS 51 U/L 04/21/2016 Comp Metabolic Jbh887 AST(SGOT) 23 U/L 04/21/2016 Comp Metabolic Mou746 ALT(SGPT) 17 U/L 04/21/2016 Comp Metabolic Cwa481 BILI T 0.5 mg/dL 04/21/2016 Comp Metabolic Knh547 ALBUMIN 4.4 g/dL 04/21/2016 Comp Metabolic Hgq605 TPRO 7.3 g/dL 04/21/2016 Comp Metabolic Shp814 GLOB 2.9 g/dL 04/21/2016 Comp Metabolic Gmz918 A/G Ratio 1.5 Ratio 04/21/2016 Comp Metabolic Adv762 Osmo 274 mOsmo 04/21/2016 Cbc With Differential [...] 32.0 pg 04/21/2016 Cbc With Differential Ord2 [place]% 9.1 % 04/21/2016 Cbc With Differential Ord2 [...] 1.39 K/ul 04/21/2016 Cbc With Differential Ord2 [place] ABS# 0.6 K/ul 04/21/2016 Cbc With Differential Ord2 Eos ABS# 0.1 K/ul 04/21/2016 Cbc With Differential Ord2 Baso ABS# 0.0 K/ul 04/21/2016 Bili D Ord93 BILI D 0.1 mg/dL 04/21/2016 Bili D Ord93 BILI I 0.4 mg/dL 04/21/2016 Vitamin D 25 Oh Rfl3623 VITAMIN D, 25 HYDROXY 51.65 ng/mL Sed Rate Ord21 ESR 26 mm/hr 04/21/2016 C-Reactive Protein Qnt Crqnt CRP 0.1 mg/dl 04/21/2016 Comp Metabolic Ozh707 NA 133 mEq/L 03/18/2016 Comp Metabolic Ikd405 K 4.9 mEq/L 03/18/2016 Comp Metabolic Odp067 CL 102 mEq/L 03/18/2016 Comp Metabolic Sfu868 CO2 25.0 mEq/L 03/18/2016 Comp Metabolic Dey419 ANION GAP 11 03/18/2016 Comp Metabolic Zpv539 GLUCOSE 114 mg/dL 03/18/2016 Comp Metabolic Hye699 Creat 1.1 mg/dL 03/18/2016 Comp Metabolic Qev781 eGFR 54 ml/min/1.73m2 03/18/2016 Comp Metabolic Kcz844 BUN 23 mg/dL 03/18/2016 Comp Metabolic Xpn430 B/C Ratio 21.3 Ratio 03/18/2016 Comp Metabolic Fue835 CALCIUM 9.7 mg/dL 03/18/2016 Comp Metabolic Oaw268 ALK PHOS 54 U/L 03/18/2016 Comp Metabolic Llt729 AST(SGOT) 21 U/L 03/18/2016 Comp Metabolic Hoc278 ALT(SGPT) 15 U/L 03/18/2016 Comp Metabolic Kwm216 BILI T 0.4 mg/dL 03/18/2016 Comp Metabolic Fin690 ALBUMIN 4.4 g/dL 03/18/2016 Comp Metabolic Atu625 TPRO 7.4 g/dL 03/18/2016 Comp Metabolic Pun845 GLOB 3.0 g/dL 03/18/2016 Comp Metabolic Wou485 A/G Ratio 1.5 Ratio 03/18/2016 Comp Metabolic Dwx971 Osmo 271 mOsmo 03/18/2016 Vitamin D 25 Oh Otd6129 VITAMIN D, 25 HYDROXY 46.10 ng/mL Sed Rate Ord21 ESR 26 mm/hr 02/13/2016 Comp Metabolic Bpi588 NA 133 mEq/L 02/13/2016 Comp Metabolic Flc315 K 4.8 mEq/L 02/13/2016 Comp Metabolic Ecr304 CL 104 mEq/L 02/13/2016 Comp Metabolic Axy116 CO2 23.0 mEq/L 02/13/2016 Comp Metabolic Erw732 ANION GAP 11 02/13/2016 Comp Metabolic Fct241 GLUCOSE 104 mg/dL 02/13/2016 Comp Metabolic Oqc176 Creat 1.0 mg/dL 02/13/2016 Comp Metabolic Cye779 eGFR 56 ml/min/1.73m2 02/13/2016 Comp Metabolic Wsh146 BUN 25 mg/dL 02/13/2016 Comp Metabolic Jst521 B/C Ratio 24.0 Ratio 02/13/2016 Comp Metabolic Mmm454 CALCIUM 9.1 mg/dL 02/13/2016 Comp Metabolic Cct551 ALK PHOS 43 U/L 02/13/2016 Comp Metabolic Tgu606 AST(SGOT) 21 U/L 02/13/2016 Comp Metabolic Cvq495 ALT(SGPT) 17 U/L 02/13/2016 Comp Metabolic Vdv031 BILI T 0.4 mg/dL 02/13/2016 Comp Metabolic Cwo011 ALBUMIN 4.3 g/dL 02/13/2016 Comp Metabolic Sco277 TPRO 7.1 g/dL 02/13/2016 Comp Metabolic Nfo965 GLOB 2.9 g/dL 02/13/2016 Comp Metabolic Qqu876 A/G Ratio 1.5 Ratio 02/13/2016 Comp Metabolic Bbr675 Osmo 271 mOsmo 02/13/2016 C-Reactive Protein Qnt [...] 31.6 pg 02/13/2016 Cbc With Differential Ord2 [place]% 9.7 % 02/13/2016 Cbc With Differential Ord2 [...] 1.17 K/ul 02/13/2016 Cbc With Differential Ord2 [place] ABS# 0.6 K/ul 02/13/2016 Cbc With Differential Ord2 Eos ABS# 0.1 K/ul 02/13/2016 Cbc With Differential Ord2 Baso ABS# 0.0 K/ul 02/13/2016 Comp Metabolic Uoh120 NA 132 mEq/L 10/08/2015 Comp Metabolic Npj712 K 4.7 mEq/L 10/08/2015 Comp Metabolic Vfz696 CL 101 mEq/L 10/08/2015 Comp Metabolic Afv306 CO2 24.0 mEq/L 10/08/2015 Comp Metabolic Piq262 ANION GAP 12 10/08/2015 Comp Metabolic Dah980 GLUCOSE 85 mg/dL 10/08/2015 Comp Metabolic Xnk526 Creat 0.9 mg/dL 10/08/2015 Comp Metabolic Mxz406 eGFR 66 ml/min/1.73m2 10/08/2015 Comp Metabolic Jtz145 BUN 29 mg/dL 10/08/2015 Comp Metabolic Igq016 B/C Ratio 32.2 Ratio 10/08/2015 Comp Metabolic Mxt244 CALCIUM 9.1 mg/dL 10/08/2015 Comp Metabolic Liy724 ALK PHOS 40 U/L 10/08/2015 Comp Metabolic Nrd107 AST(SGOT) 18 U/L 10/08/2015 Comp Metabolic Wlp266 ALT(SGPT) 14 U/L 10/08/2015 Comp Metabolic Kds891 BILI T 0.3 mg/dL 10/08/2015 Comp Metabolic Lza477 ALBUMIN 4.1 g/dL 10/08/2015 Comp Metabolic Fmn956 TPRO 6.8 g/dL 10/08/2015 Comp Metabolic Rmt768 GLOB 2.7 g/dL 10/08/2015 Comp Metabolic Biy189 A/G Ratio 1.5 Ratio 10/08/2015 Comp Metabolic Bfi969 Osmo 270 mOsmo 10/08/2015 C-Reactive Protein Qnt [...] 96.0 fl 10/08/2015 Cbc With Differential Ord2 [place]% 10.5 % 10/08/2015 Cbc With Differential Ord2 [...] 1.24 K/ul 10/08/2015 Cbc With Differential Ord2 [place] ABS# 0.8 K/ul 10/08/2015 Cbc With Differential Ord2 Eos ABS# 0.0 K/ul 10/08/2015 Cbc With Differential Ord2 Baso ABS# 0.0 K/ul 10/08/2015 Sed Rate Ord21 ESR 20 mm/hr 10/08/2015 Vitamin D 25 Oh Akp2134 VITAMIN D, 25 HYDROXY 54.28 ng/mL Tsh Ord6 hTSH II 1.72 uIU/mL 09/26/2015 Free T4 Prw158 FREE T4 0.80 ng/dL 09/26/2015 Comp Metabolic Mfn667 NA 133 mEq/L 08/06/2015 Comp Metabolic Ybo076 K 4.6 mEq/L 08/06/2015 Comp Metabolic Mtm401 CL 102 mEq/L 08/06/2015 Comp Metabolic Izw983 CO2 24.0 mEq/L 08/06/2015 Comp Metabolic Ikr597 ANION GAP 12 08/06/2015 Comp Metabolic Isb181 GLUCOSE 105 mg/dL 08/06/2015 Comp Metabolic Pid082 Creat 1.0 mg/dL 08/06/2015 Comp Metabolic Ols431 eGFR 60 ml/min/1.73m2 08/06/2015 Comp Metabolic Wkg899 BUN 28 mg/dL 08/06/2015 Comp Metabolic Xwg738 B/C Ratio 28.6 Ratio 08/06/2015 Comp Metabolic Jtt575 CALCIUM 9.2 mg/dL 08/06/2015 Comp Metabolic Dba077 ALK PHOS 42 U/L 08/06/2015 Comp Metabolic Jgb658 AST(SGOT) 20 U/L 08/06/2015 Comp Metabolic Amd847 ALT(SGPT) 16 U/L 08/06/2015 Comp Metabolic Crv817 BILI T 0.3 mg/dL 08/06/2015 Comp Metabolic Gup296 ALBUMIN 4.3 g/dL 08/06/2015 Comp Metabolic Jjn421 TPRO 6.9 g/dL 08/06/2015 Comp Metabolic Mrq351 GLOB 2.7 g/dL 08/06/2015 Comp Metabolic Tln173 A/G Ratio 1.6 Ratio 08/06/2015 Comp Metabolic Roy687 Osmo 272 mOsmo 08/06/2015 C-Reactive Protein Qnt Crqnt CRP 0.00 mg/dl 08/06/2015 Vitamin D 25 Oh Rlu4078 VITAMIN D, 25 HYDROXY 36.25 ng/mL Cbc [...] 20.4 % 08/06/2015 Cbc With Differential Ord2 [place]% 8.9 % 08/06/2015 Cbc With Differential Ord2 [...] 1.31 K/ul 08/06/2015 Cbc With Differential Ord2 [place] ABS# 0.6 K/ul 08/06/2015 Cbc With Differential [...] Ord93 BILI I 0.4 mg/dL 04/04/2015 %Hba1C Iim018 % HbA1c 53686-1 5.7 % 04/04/2015 %Hba1C Lcm363 Gluc Ave 117 mg/dL 04/04/2015 Vitamin D 25 Oh Xal4867 VITAMIN D, 25 HYDROXY 47.62 ng/mL C-Reactive [...] Ord2 RDW 13.0 % 04/04/2015 Comp Metabolic Tjh203 NA 132 mEq/L 04/04/2015 Comp Metabolic Rus006 K 4.6 mEq/L 04/04/2015 Comp Metabolic Yaz335 CL 100 mEq/L 04/04/2015 Comp Metabolic Cbe443 CO2 22.0 mEq/L 04/04/2015 Comp Metabolic Yvr916 ANION GAP 15 04/04/2015 Comp Metabolic Ban987 GLUCOSE 118 mg/dL 04/04/2015 Comp Metabolic Csw871 Creat 1.0 mg/dL 04/04/2015 Comp Metabolic Wxm919 eGFR 60 ml/min/1.73m2 04/04/2015 Comp Metabolic Aub895 BUN 18 mg/dL 04/04/2015 Comp Metabolic Eee895 B/C Ratio 18.4 Ratio 04/04/2015 Comp Metabolic Lva424 CALCIUM 9.6 mg/dL 04/04/2015 Comp Metabolic Api978 ALK PHOS 63 U/L 04/04/2015 Comp Metabolic Gom920 AST(SGOT) 17 U/L 04/04/2015 Comp Metabolic Jpz131 ALT(SGPT) 13 U/L 04/04/2015 Comp Metabolic Xwj761 BILI T 0.5 mg/dL 04/04/2015 Comp Metabolic Evj274 ALBUMIN 4.6 g/dL 04/04/2015 Comp Metabolic Lpl767 TPRO 7.4 g/dL 04/04/2015 Comp Metabolic Dvn738 GLOB 2.8 g/dL 04/04/2015 Comp Metabolic Mun355 A/G Ratio 1.6 Ratio 04/04/2015 Comp Metabolic Vdd110 Osmo 268 mOsmo 04/04/2015 Sed Rate Ord21 ESR 16 mm/hr 04/04/2015 Lipid Ord30 CHOL 214 mg/dL 04/04/2015 Lipid Ord30 HDL 61.0 mg/dl 04/04/2015 Lipid Ord30 TRIG 155 mg/dL 04/04/2015 Lipid Ord30 LDL 122 mg/dL 04/04/2015 Lipid Ord30 C/HDL 3.5 Ratio 04/04/2015 %Hba1C Twp744 % HbA1c 05959-0 5.9 % 11/28/2014 %Hba1C Awu335 Gluc Ave 123 mg/dL 11/28/2014 Cbc With [...] Rate Ord21 ESR 19 mm/hr 11/27/2014 Hepatic Mfh840 ALBUMIN 4.4 g/dL 11/27/2014 Hepatic Ezz981 TPRO 7.0 g/dL 11/27/2014 Hepatic Vmo082 GLOB 2.6 g/dL 11/27/2014 Hepatic Nlu258 A/G Ratio 1.7 Ratio 11/27/2014 Hepatic Tqx814 ALK PHOS 63 U/L 11/27/2014 Hepatic Qxa235 ALT(SGPT) 14 U/L 11/27/2014 Hepatic Ppt963 AST(SGOT) 19 U/L 11/27/2014 Hepatic Vfr344 BILI T 0.4 mg/dL 11/27/2014 Hepatic Qft086 BILI D 0.1 mg/dL 11/27/2014 Hepatic Bef486 BILI I 0.3 mg/dL 11/27/2014 Lipid Ord30 [...] dentition 05/17/2018 None Full Exam - General 1994 [...] clear 12/29/2017 None Full Exam - General 1995 Ears/Nose/Throat [...] Formatting Model/CDA Sections, Assigned to/Tabitha Velasquez CPT-4: 10672Ceudihd 12/29/2017 PPPS, SUBSEQ VISIT CPT -4: G0439 09/17/2017 PPPS, SUBSEQ VISIT CPT -4: G0439 08/21/2016 PNEUMOCOCCAL VACC [address]: 07634788 CPT-4: 91558 02/20/2016 ADMIN PNEUMOCOCCAL VACCINE SNOMED CT: 17478435 CPT-4: G0009 02/20/2016 ADMIN INFLUENZA VIRUS VAC CPT-4: G0008 01/23/2016 FLU VACC 4 KATIE 3 YRS PLUS IM SNOMED CT: 34348381 CPT-4: 74586 01/23/2016 PPPS, SUBSEQ VISIT CPT -4: G0439 07/19/2015 Vital Signs Date Vital 05/17/2018 Blood Pressure 1: 112/74 Code : 8480-6 BMI: 30.2 Code : 14698-8 Heart Rate 1 : 64 bpm Height: 5'1" SpO2: 97% Weight: 160 lbs 01/12/2018 Blood Pressure 1: 124/70 Code : 8480-6 BMI: 30.2 Code : 06810-5 Heart Rate 1 : 59 bpm Height: 5'1" SpO2: 98% Weight: 160 lbs 12/29/2017 Blood Pressure 1: 148/82 Code : 8480-6 BMI: 30.4 Code : 40478-0 Heart Rate 1 : 60 bpm Height: 5'1" SpO2: 99% Weight: 161 lbs 09/17/2017 Height: Weight: 08/25/2017 Blood Pressure 1: 130/72 Code : 8480-6 BMI: 29.9 Code : 62313-2 Heart Rate 1 : 70 bpm Height: 5'1" SpO2: 93% Weight: 158 lbs 07/21/2017 Blood Pressure 1: 150/84 Code : 8480-6 BMI: 29.5 Code : 47146-8 Heart Rate 1 : 62 bpm Height: 5'1" SpO2: 98% Weight: 156 lbs 06/17/2017 Blood Pressure 1: 148/86 Code : 8480-6 BMI: 29.5 Code : 87069-6 Heart Rate 1 : 64 bpm Height: 5'1" SpO2: 98% Weight: 156 lbs 02/17/2017 Blood Pressure 1: 144/86 Code : 8480-6 BMI: 28.7 Code : 81000-6 Heart Rate 1 : 64 bpm Height: 5'1" SpO2: 96% Weight: 152 lbs 01/02/2017 Blood Pressure 1: 132/78 Code : 8480-6 BMI: 28.3 Code : 03724-4 Heart Rate 1 : 71 bpm Height: 5'1" SpO2: 97% Weight: 150 lbs 12/05/2016 Blood Pressure 1: 140/76 Code : 8480-6 BMI: 29.5 Code : 72754-3 Heart Rate 1 : 66 bpm Height: 5'1" SpO2: 98% Weight: 156 lbs 08/21/2016 Blood Pressure 1: 142/78 Code : 8480-6 BMI: 29.9 Code : 67043-9 Heart Rate 1 : 62 bpm Height: 5'1" SpO2: 98% Waist Measure (cm): 79 cm Weight: 158 lbs 08/19/2016 Blood Pressure 1: 142/78 Code : 8480-6 BMI: 29.9 Code : 93991-9 Heart Rate 1 : 62 bpm Height: 5'1" SpO2: 98% Weight: 158 lbs 05/20/2016 Blood Pressure 1: 152/76 Code : 8480-6 Blood Pressure 1: 144/80 Code: 8480-6 BMI: 29.3 Code: 20762-6 Heart Rate 1: 60 bpm Height: 5'1" SpO2: 95% Weight: 155 lbs 01/23/2016 Blood Pressure 1: 138/78 Code : 8480-6 BMI: 29.7 Code : 26506-7 Heart Rate 1 : 64 bpm Height: 5'1" SpO2: 98% Weight: 157 lbs 09/26/2015 Blood Pressure 1: 136/76 Code : 8480-6 BMI: 28.3 Code : 96939-4 Heart Rate 1 : 70 bpm Height: 5'1" SpO2: 98% Weight: 150 lbs 08/23/2015 Blood Pressure 1: 126/78 Code : 8480-6 BMI: 27.8 Code : 70685-7 Heart Rate 1 : 68 bpm Height: 5'1" SpO2: 97% Weight: 147 lbs 07/19/2015 Blood Pressure 1: 146/70 Code : 8480-6 BMI: 26.8 Code : 19719-3 Heart Rate 1 : 58 bpm Height: 5'1" SpO2: 96% Waist Measure (cm): 84 cm Weight: 142 lbs 04/17/2015 Blood Pressure 1: 132/62 Code : 8480-6 BMI: 25.3 Code : 15952-5 Heart Rate 1 : 98 bpm Height: 5'1" SpO2: 97% Weight: 134 lbs 03/15/2015 Blood Pressure 1: 158/72 Code : 8480-6 Blood Pressure 1: 160/70 Code: 8480-6 BMI: 25.5 Code: 10989-5 Heart Rate 1: 74 bpm Heart Rate 1: 72 bpm Height: 5'1" Height: SpO2: 98% Weight: 135 lbs Weight: 02/06/2015 Blood Pressure 1: 142/82 Code : 8480-6 BMI: 25.5 Code : 11267-0 Heart Rate 1 : 82 bpm Height: 5'1" SpO2: 96% Weight: 135 lbs 12/13/2014 Blood Pressure 1: 136/64 Code : 8480-6 BMI: 24.9 Code : 74495-6 Heart Rate 1 : 86 bpm Height: 5'1" SpO2: 95% Weight: 132 lbs 10/11/2014 Blood Pressure 1: 140/80 Code : 8480-6 BMI: 25.1 Code : 63899-8 Heart Rate 1 : 72 bpm Height: [...] Present Encounters Encounter Performer Location Codes Date ([id number]) 85566 EST. PATIENT, LEVEL IV Diagnosis: Essential (primary) hypertension[ICD10: I10] Diagnosis: Type 2 diabetes mellitus without complications[ICD10: E11.9] Diagnosis: Muscle weakness (generalized)[ICD10: M62.81] Mari aLuisa Echeverria MD, [facility] CPT-4: 66887 05/17/2018 [id number]) 75238 EST. PATIENT, LEVEL III Diagnosis: Essential (primary) hypertension[ICD10: I10] Diagnosis: Type 2 diabetes mellitus without complications[ICD10: E11.9] Diagnosis: Encounter for immunization[ICD10: Z23] Diagnosis: Muscle weakness (generalized)[ICD10: M62.81] Maria Luisa Echeverria MD, [facility] CPT-4: 75398 01/12/2018 ([id number]) 29017 EST. PATIENT, LEVEL IV Diagnosis: Essential (primary) hypertension[ICD10: I10] Diagnosis: Type 2 diabetes mellitus without complications[ICD10: E11.9] Diagnosis: Encounter for immunization[ICD10: Z23] Diagnosis: Muscle weakness (generalized)[ICD10: M62.81] Maria Luisa Echeverria MD, [facility] CPT-4: 72772 12/29/[id number]) 89627 EST. PATIENT, LEVEL IV Diagnosis: Essential (primary) hypertension[ICD10: I10] Diagnosis: Muscle weakness (generalized)[ICD10: M62.81] Diagnosis: 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 artery[ICD10: I66.01 ] [facility] CPT-4: 54792 08/25/2017 ([id number]) 47173 EST. PATIENT, LEVEL IV Diagnosis: Essential (primary) hypertension[ICD10: I10] Diagnosis: 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 artery[ICD10: I66.01 ] [facility] CPT-4: 85403 07/21/2017 ([id number]) 73797 EST. PATIENT, LEVEL IV Diagnosis: Essential (primary) hypertension[ICD10: I10] Diagnosis: Type 2 diabetes mellitus without complications[ICD10: E11.9] Diagnosis: 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 artery[ICD10: I66.01 ] Maria Luisa Echeverria MD, [facility] CPT-4: 58545 06/17/2017 ([id number]) 38472 EST. PATIENT, LEVEL IV Diagnosis: Essential (primary) hypertension[ICD10: I10] Diagnosis: Muscle weakness (generalized)[ICD10: M62.81] Diagnosis: Mixed hyperlipidemia[ICD10: E78.2] Maria Luisa Echeverria MD, [facility] CPT-4: 65890 02/17/2017 ([id number]) 34055 EST. PATIENT, LEVEL III Diagnosis: Essential (primary) hypertension[ICD10: I10] Diagnosis: Muscle weakness (generalized)[ICD10: M62.81] Diamond Echeverria MD, [facility] CPT-4: 98676 01/02/2017 ([id number] 96224 EST. PATIENT, LEVEL IV Diagnosis: Muscle weakness (generalized)[ICD10: M62.81] Diagnosis: Cerebral infarction, unspecified[ICD10: I63.9] Diagnosis: Essential (primary) hypertension[ICD10: I10] Diagnosis: Gastro-esophageal reflux disease without esophagitis[ICD10: K21.9] Diagnosis: Allergic rhinitis due to pollen[ICD10: J30.1] Diamond Echeverria MD, [facility] CPT-4: 59986 12/05/2016 ([id number] 01643 EST. PATIENT, LEVEL IV Diagnosis: Essential (primary) hypertension[ICD10: I10] Diagnosis: Type 2 diabetes mellitus without complications[ICD10: E11.9] Maria Luisa Echeverria MD, [facility] CPT-4: 79074 08/19/2016 [id number] EST. PATIENT, LEVEL IV Diagnosis: Essential (primary) hypertension[ICD10: I10] Diagnosis: Type 2 diabetes mellitus without complications[ICD10: E11.9] Diagnosis: Mixed hyperlipidemia[ICD10: E78.2] Ashley Echeverria MD, [facility] CPT-4: 68304 05/20/2016 ([id number] 63571 EST. PATIENT, LEVEL IV Diagnosis: Type 2 diabetes mellitus without complications[ICD10: E11.9] Diagnosis: Family history of other endocrine, nutritional and metabolic diseases [ICD10: Z83.49] Diagnosis: Other fatigue[ICD10: R53.83] Diagnosis: Abnormal weight gain[ICD10: R63.5] Diagnosis: Actinic keratosis[ICD10: L57.0] Maria Luisa Echeverria MD, [facility] CPT- 4: 64741 01/23/2016 ([id number]) 47353 EST. PATIENT, LEVEL IV Diagnosis: Family history of other endocrine, nutritional and metabolic diseases [ICD10: Z83.49] Diagnosis: Other fatigue[ICD10: R53.83] Diagnosis: Abnormal weight gain[ICD10: R63.5] Diagnosis: Actinic keratosis[ICD10: L57.0] Diagnosis: Type 2 diabetes mellitus without complications[ICD10: E11.9] Maria Luisa Echeverria MD, [facility] CPT-4: 54197 09/26/2015 ([id number]) 33982 EST. PATIENT, LEVEL IV Diagnosis: Essential (primary) hypertension[ICD10: I10] Diagnosis: Type 2 diabetes mellitus without complications[ICD10: E11.9] Diagnosis: Other depressive episodes[ICD10: F32.8] Diagnosis: Vitamin D deficiency, unspecified[ICD10: E55.9] Maria Luisa Echeverria MD, [facility] CPT-4: 44178 08/23/2015 [id number]) 37316 EST. PATIENT, LEVEL IV Diagnosis: Essential (primary) hypertension[ICD10: I10] Diagnosis: Benign paroxysmal vertigo, unspecified ear[ICD10: H81.10] Diagnosis: Type 2 diabetes mellitus without complications[ICD10: E11.9] Maria Luisa Echeverria MD, [facility] CPT-4: 93951 04/17/2015 ([id number]) 31906 EST. PATIENT, LEVEL III Diagnosis: Essential (primary) hypertension[ICD10: I10] Diagnosis: Benign paroxysmal vertigo, unspecified ear[ICD10: H81.10] Diamond Echeverria MD , [facility] CPT-4: 78073 03/15/2015 [id number] 86703 EST. PATIENT, LEVEL III Diagnosis: Essential (primary) hypertension[ICD10: I10] Diagnosis: Edema, unspecified[ICD10: R60.9] Diamond Echeverria MD, [facility] CPT-4: 91713 02/06/2015 ([id number]) 12063 EST. PATIENT, LEVEL IV Diagnosis: ESSENTIAL HYPERTENSION[ICD9: 401.9] Diagnosis: HYPERLIPIDEMIA[ICD9: 272.4] Diagnosis: DEPRESSIVE DISORDER NEC[ICD9: 311] Diagnosis: ESOPHAGEAL REFLUX[ICD9: 530.81] Diagnosis: RESTLESS LEGS SYNDROME[ICD9: 333.94] Maria Luisa Echeverria MD, [facility] CPT-4: 22947 12/13/2014 ([id number]) OFFICE VISIT, NEW - LEVEL 4 Diagnosis: ESSENTIAL HYPERTENSION[ICD9: 401.9] Diagnosis: HYPERLIPIDEMIA[ICD9: 272.4] Diagnosis: DEPRESSIVE DISORDER NEC[ICD9: 311] Diagnosis: ESOPHAGEAL REFLUX[ICD9: 530.81] Diagnosis: RESTLESS LEGS SYNDROME[ICD9: 333.94] Maria Luisa Echeverria MD, [facility] CPT-4: 74448 10/11/2014 Plan of Care Planned Activity Notes [...] Aneta 05/17/2018 Appointment: Maria Luisa Echeverria WPtel: [address] [place], [place] [address] (15 min) Moderate 05/17/2018 Patient Education: Patient [...] 01/12/2018 Appointment: [facility] [phone] [facility] ([facility] min) Moderate 01/12/2018 Patient Education: Patient [...] she stopped therapy when she left the senior living. She states that she does struggle with her strength. She states that she would rather do activities on her own rather than going to physical therapy. high dose flu shot today due to autoimmune deficiency 12/29/2017 Appointment: [facility] Lu[facility] [phone] [facility] (15 min) Moderate 12/29/2017 Patient Education: Patient [...] she stopped therapy when she left the senior living. She states that she does struggle with her strength. She states that she would rather do activities on her own rather than going to physical therapy. 08/25/2017 Appointment: [facility] Lu[facility]verria [facility] [phone] [facility] (15 min) Moderate 08/25/2017 Patient Education: Patient [...] therapy. 07/21/2017 Appointment: [facility] Lu[facility]verria [facility] [phone] [facility] (15 min) Moderate 07/21/2017 Patient Education: Patient Medication Summary Completed 07/21/2017 Visit Plan: Right Middle Cerebral artery stroke - appt with neurology with Dr. Macario at Neurology. Gait instability - appt with outpt physical therapy Hypertension - stable - continue with current treatment - monitor symptoms DM - diet controlled - 06/17/2017 Appointment: Maria Luisa Echeverria WPtel: [facility] (15 min) Moderate 06/17/2017 Patient Education: Patient [...] medications. 02/17/2017 Appointment: Maria Luisa Echeverria WPtel: [facility] (15 min) Moderate 02/17/2017 Patient Education: Patient Medication Summary Completed 02/17/2017 Care Plan: Referral Order SNOMED-CT : [id number] Pending 02/17/2017 Visit Plan: Hypertension - well controlled - continue with current medications, continue with no added salt diet. Pt has been encouraged to exercise daily. The pt has been advised to call the office if there are any acute concerns about change in blood pressure readings at home. Weakness-recent stroke-strength improving-no changes 01/02/2017 Appointment[facility] Diamond Sawyer [facility]el[phone] [place] (30 min) Complex 01/02/2017 Patient Education: Patient Medication Summary Completed 01/02/2017 Visit Plan: Hypertension - well controlled - continue with current medications, continue with no added salt diet. Pt has been encouraged to exercise daily. The pt has been advised to call the office if there are any acute concerns about change in blood pressure readings at home. Generalized weakness-gait nzycndtgffw-DJW-atoslsbu PT-patient to use 4 wheeled walker GERD- dysphagia-refer for speech eval-start pepcid twice daily Allergies-chronic- restart allergy pill as directed 12/05/2016 Appointment: Diamond Sawyer WPtel: [phone] [facility] (15 min) Moderate 12/05/2016 Patient Education: Patient [...] surrogate. 08/21/2016 Appointment: Ashley Wooten [facility] [phone] [facility] [facility] - Annual Wellness Visit 08/21/2016 Patient Education: [...] 08/19/2016 Appointment: Maria Lu[facility]verria [facility]el[facility] [phone] [facility] (15 min) Moderate 08/19/2016 Patient Education: Patient [...] medications. 05/20/2016 Appointment: Ashley Woot[phone] [facility] (15 min) Moderate 05/20/2016 Patient [...] TODAY 01/23/2016 Appointment: Maria Luisa Echeverria WPtel: [phone] [facility] (15 min) Moderate 01/23/2016 Patient Education: Patient [...] home. 09/26/2015 Appointment: Maria Luisa Echeverria WPtel: [phone] [facility] [place] (15 min) Moderate 09/26/2015 Patient Education: [...] Completed 08/23/2015 Appointment: Maria Luisa Echeverria WPtel: [phone] [facility] [place] (15 min) Moderate 08/22/2015 Appointment: Maria Lu[facility]verria [facility]el[facility] [phone] [facility] (15 min) Moderate 08/15/2015 Visit Plan: Medicare [...] paperwork for health care surrogate. 07/19/2015 Appointment: [facility] - Annual Wellness Visit 07/19/2015 [...] to three times a week. 04/17/2015 Appointment: Juwan Maria Luisa [facility]Ptel[facility] [phone] [facility] (15 min) Moderate 04/17/2015 Patient Education: Patient [...] 12/13/2014 Appointment: Maria Luisa Echeverria [facility]el[facility] [phone] [facility] (15 min) Moderate 12/13/2014 Patient Education: Patient [...] 10/11/2014 Appointment: Maria Luisa Echeverria [facility]Ptel[facility] [phone] [facility] [place] ([place] New Patient 10/11/2014 Appointment: Maria Luisa Echeverria WPtel: [facility] (15 min) Moderate 10/11/2014 Patient Education: Patient [...] Middle Cerebral artery stroke - appt with [facility] neurology with Dr. Macario at Neurology. - [...] are starting to become less controlled. . Hypertension - well controlled - continue [...] checks to three times a week. . Hypertension - improved control - continue [...] she stopped therapy when she left the senior living. She states that she does struggle with [...] she stopped therapy when she left the senior living. She states that she does struggle with [...] at Neurology. Gait instability - appt with [facility] outpt physical therapy Hypertension - stable - continue with current treatment - monitor symptoms DM - diet controlled - PEPCID 20MG TWICE DAILY OK TO RESTART ALLERGY PILL SPEECH THERAPY TO EVALUATE AND TREAT . Hypertension - well controlled - continue with current medications, continue with no added salt diet. Pt has been encouraged to exercise daily. The pt has been advised to call the office if there are any acute concerns about change in blood pressure readings at home. Generalized weakness-gait ozhgqnlaopp-HON-widmanai PT-patient to use 4 wheeled walker PYPM-qpznbyyvg-ikdcc for speech eval-start pepcid twice daily Fotzattjo-loicrgw-mmvfhae allergy pill as directed . Medicare Exam [...]
--- OUTSIDE RECORDS SUMMARY | 2018-07-02 14:27 | XMS REPORT | CCD ---
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 Medicare Part B [id number] Unknown Family history Mother Diagnosis Age At [...] Unknown 5 10/11/[address]: 723187583 Never smoker 10/11/[address]: 260426613 Never drinks alcohol 10/11/2014 Allergies, Adverse Reactions, [...] Start Date Stop Date Status Fill Instructions Coreg 3.125 mg tablet RxNorm: 682114 1 Tablet(s) QAM 05/11/2018 10/07/2018 Active Lomotil 2.5 mg-0.025 mg tablet RxNorm: 5456484 1 Tablet(s) PO daily as needed 05/11/2018 11/04/2018 Active Plavix 75 mg tablet RxNorm: 629125 TAKE ONE TABLET BY MOUTH DAILY 04/26/2018 12/21/2018 Active Request already responded to by other means (e.g. phone or fax) clonazepam 0.5 mg tablet RxNorm: 489643 Tablet(s) TAKE 2 TABLETS BY MOUTH AT BEDTIME NEEDED 04/19/2018 07/17/2018 Active Plavix 75 mg tablet RxNorm: 783305 Tablet(s) TAKE ONE TABLET BY MOUTH DAILY 04/19/2018 04/25/2018 Inactive Coreg 3.125 mg tablet RxNorm: 592099 TAKE ONE-HALF TABLET BY MOUTH TWICE A DAY 04/19/2018 05/10/2018 Inactive SkuRunTouch Ultra Test strips RxNorm: TEST 1 TIME DAILY 201804/08/2019 Active Benicar 40 mg tablet RxNorm: 754461 1 Tablet(s) PO daily 201707/23/2018 Active This replaces losartan Benicar 40 mg tablet RxNorm: 261458 1 Tablet(s) PO daily 201702/23/2018 Inactive This replaces losartan clonazepam 0.5 mg tablet RxNorm: 186172 Tablet(s) TAKE 2 TABLETS BY MOUTH AT BEDTIME NEEDED 01/20/2018 04/18/2018 Inactive Coreg 3.125 mg tablet RxNorm: 814564 1/2 Tablet(s) PO BID 201704/18/2018 Inactive Mirapex 0.5 mg tablet RxNorm: 465560 TAKE ONE TABLET BY MOUTH EVERY NIGHT AT BEDTIME 12/21/2017 05/19/2018 Active folic acid 1 mg tablet RxNorm: 445012 TAKE ONE TABLET BY MOUTH DAILY 12/11/2017 12/05/2018 Active Plavix 75 mg tablet RxNorm: 699193 TAKE ONE TABLET BY MOUTH DAILY 12/11/2017 04/18/2018 Inactive Aspirin Low Dose 81 mg tablet,delayed release RxNorm: 506902 TAKE ONE TABLET BY MOUTH DAILY 11/24/2017 12/28/2017 Inactive Request already responded to by other means (e.g. phone or fax) Aspirin Low Dose 81 mg tablet,delayed release RxNorm: 352612 1 Tablet(s) PO daily 11/18/2017 11/17/2017 Inactive Aspirin Low Dose 81 mg tablet,delayed release RxNorm: 541767 1 Tablet(s) PO daily 11/18/2017 11/23/2017 Inactive clonazepam 0.5 mg tablet RxNorm: 586070 Tablet(s) TAKE 2 TABLETS BY MOUTH AT BEDTIME NEEDED 10/23/2017 04/18/2018 Inactive Lomotil 2.5 mg-0.025 mg tablet RxNorm: 3574270 1 Tablet(s) PO daily as needed 09/28/2017 03/25/2018 Inactive pravastatin 80 mg tablet RxNorm: 053364 TAKE ONE TABLET BY MOUTH EVERY EVENING 08/19/2017 11/11/2018 Active clonazepam 0.5 mg tablet RxNorm: 767739 Tablet(s) TAKE 2 TABLETS BY MOUTH AT BEDTIME NEEDED 07/24/2017 10/20/2017 Inactive Mirapex 0.5 mg tablet RxNorm: 478969 TAKE ONE TABLET BY MOUTH EVERY NIGHT AT BEDTIME 07/23/2017 12/19/2017 Inactive Vitamin D2 50,000 unit capsule RxNorm: 542899 1 Capsule(s) PO QW 07/22/2017 07/21/2017 Inactive Vitamin D2 50,000 unit capsule RxNorm: 457817 1 Capsule(s) PO QW 07/22/2017 10/19/2017 Inactive amlodipine 5 mg tablet RxNorm: 919913 1 Tablet(s) PO daily 01/201812/28/2017 Inactive Refill not appropriate Prozac 40 mg capsule RxNorm: 942770 TAKE ONE CAPSULE BY MOUTH DAILY 06/24/2017 06/18/2018 Active Plavix 75 mg tablet RxNorm: 331957 TAKE ONE TABLET BY MOUTH DAILY 06/18/2017 12/10/2017 Inactive Lomotil 2.5 mg-0.025 mg tablet RxNorm: 8825683 1 Tablet(s) PO daily as needed 06/04/2017 11/17/2017 Inactive losartan 100 mg tablet RxNorm: 787808 TAKE ONE TABLET BY MOUTH DAILY 05/11/2017 02/23/2018 Inactive OneTouch Ultra Test strips RxNorm: TEST 1 TIME DAILY 201704/13/2018 Inactive clonazepam 0.5 mg tablet RxNorm: 846526 Tablet(s) TAKE 2 TABLETS BY MOUTH AT BEDTIME NEEDED 04/14/2017 11/17/2017 Inactive Lomotil 2.5 mg-0.025 mg tablet RxNorm: 2821790 1 Tablet(s) PO daily as needed 03/17/2017 06/03/2017 Inactive Mirapex 0.5 mg tablet RxNorm: 519079 TAKE ONE TABLET BY MOUTH EVERY NIGHT AT BEDTIME 01/19/2017 07/17/2017 Inactive clonazepam 0.5 mg tablet RxNorm: 796818 Tablet(s) TAKE 2 TABLETS BY MOUTH AT BEDTIME NEEDED 01/12/2017 04/09/2017 Inactive tramadol 50 mg tablet RxNorm: 679978 1-2 Tablet(s) PO Q6 PRN pain 12/31/2016 08/24/2017 Inactive folic acid 1 mg tablet RxNorm: 390698 TAKE ONE TABLET BY MOUTH DAILY 12/24/2016 12/10/2017 Inactive tramadol 50 mg tablet RxNorm: 905058 1-2 Tablet(s) PO Q6 PRN pain 12/12/2016 12/16/2016 Inactive tramadol 50 mg tablet RxNorm: 279265 1-2 Tablet(s) PO Q6 PRN pain 12/12/2016 12/11/2016 Inactive clonazepam 0.5 mg tablet RxNorm: 142448 Tablet(s) TAKE 2 TABLETS BY MOUTH AT BEDTIME NEEDED 12/09/2016 01/11/2017 Inactive pravastatin 80 mg tablet RxNorm: 162787 TAKE ONE TABLET BY MOUTH EVERY EVENING 11/11/2016 08/07/2017 Inactive Mirapex 0.5 mg tablet RxNorm: 591511 TAKE ONE TABLET BY MOUTH EVERY NIGHT AT BEDTIME 10/29/2016 01/18/2017 Inactive Prozac 40 mg capsule RxNorm: 872650 TAKE ONE CAPSULE BY MOUTH DAILY 10/29/2016 06/23/2017 Inactive spironolactone 25 mg tablet RxNorm: 809795 TAKE ONE TABLET BY MOUTH DAILY 10/29/2016 12/04/2016 Inactive clonazepam 0.5 mg tablet RxNorm: 847815 Tablet(s) TAKE 2 TABLETS BY MOUTH AT BEDTIME NEEDED 09/24/2016 11/22/2016 Inactive Lomotil 2.5 mg-0.025 mg tablet RxNorm: 9969732 1 Tablet(s) PO daily as needed 07/30/2016 01/23/2017 Inactive sucralfate 1 gram tablet RxNorm: 590627 TAKE ONE-HALF TABLET BY MOUTH TWO TIMES A DAY ONE HOUR BEFORE MEALS 07/28/201608/24 Inactive losartan 100 mg tablet RxNorm: 368455 TAKE ONE TABLET BY MOUTH DAILY 07/28/2016 01/23/2017 Inactive Lialda 1.2 gram tablet,delayed release RxNorm: 511492 3 Tablet(s) PO daily 07/02/2016 08/24/2017 Inactive Mirapex 0.5 mg tablet RxNorm: 688037 TAKE ONE TABLET BY MOUTH EVERY NIGHT AT BEDTIME 06/27/2016 10/24/2016 Inactive clonazepam 0.5 mg tablet RxNorm: 475782 Tablet(s) TAKE 2 TABLETS BY MOUTH AT BEDTIME NEEDED 06/27/2016 01/11/2017 Inactive clonazepam 0.5 mg tablet RxNorm: 19740520 Tablet(s) TAKE 2 TABLETS BY MOUTH AT BEDTIME NEEDED 04/29/2016 06/25/2016 Inactive folic acid 1 mg tablet RxNorm: 019415 TAKE ONE TABLET BY MOUTH DAILY 02/28/2016 11/23/2016 Inactive clonazepam 0.5 mg tablet RxNorm: 19740520 Tablet(s) TAKE 2 TABLETS BY MOUTH AT BEDTIME NEEDED 02/26/2016 01/11/2017 Inactive OneTouch Ultra Test strips RxNorm: TEST ONCE DAILY 02/25/2016 08/22/2016 Inactive sucralfate 1 gram tablet RxNorm: 421287 TAKE ONE-HALF TABLET BY MOUTH TWO TIMES A DAY ONE HOUR BEFORE MEALS 01/28/201607/25 Inactive Mirapex 0.5 mg tablet RxNorm: 958032 TAKE ONE TABLET BY MOUTH EVERY NIGHT AT BEDTIME 01/28/2016 06/25/2016 Inactive spironolactone 25 mg tablet RxNorm: 573392 TAKE ONE TABLET BY MOUTH DAILY 01/28/2016 10/23/2016 Inactive Lomotil 2.5 mg-0.025 mg tablet RxNorm: 0358164 1 Tablet(s) PO daily as needed 12/05/2015 01/11/2017 Inactive Klor-Con M20 mEq tablet,extended release RxNorm: 035470 TAKE ONE TABLET BY MOUTH THREE TIMES A DAY 12/05/2015 08/24/2017 Inactive losartan 100 mg tablet RxNorm: 697301 TAKE ONE TABLET BY MOUTH DAILY 11/22/2015 07/27/2016 Inactive amlodipine 5 mg tablet RxNorm: 131275 TAKE ONE TABLET BY MOUTH DAILY 11/13/2015 11/06/2016 Inactive Refill not appropriate clonazepam 0.5 mg tablet RxNorm: 471942 Tablet(s) TAKE 2 TABLETS BY MOUTH AT BEDTIME NEEDED 11/08/2015 01/11/2017 Inactive clonazepam 0.5 mg tablet RxNorm: 19740520 Tablet(s) TAKE 2 TABLETS BY MOUTH AT BEDTIME NEEDED 11/02/2015 01/29/2016 Inactive Prozac 40 mg capsule RxNorm: 983360 1 Capsule(s) PO daily 10/3010/24/2016 Inactive pravastatin 80 mg tablet RxNorm: 814183 1 Tablet(s) PO QPM 10/23/2016 Inactive OneTouch Ultra Test strips RxNorm: TEST ONCE DAILY 10/30/2015 01/27/2016 Inactive Imuran 50 mg tablet RxNorm: 596529 1.5 (75) Tablet(s) PO daily 08/17/2015 08/10/2016 Inactive K75.4 clonazepam 0.5 mg tablet RxNorm: 855797 Tablet(s) TAKE 2 TABLETS BY MOUTH AT BEDTIME NEEDED 08/10/2015 01/11/2017 Inactive Imuran 50 mg tablet RxNorm: 498630 1.5 (75) Tablet(s) PO daily 08/10/2015 08/16/2015 Inactive OneTouch Ultra Test strips RxNorm: TEST ONCE DAILY 08/09/2015 10/29/2015 Inactive Vitamin D2 50,000 unit capsule RxNorm: 085708 1 Capsule(s) PO QW 08/07/2015 01/11/2017 Inactive Mirapex 0.5 mg tablet RxNorm: 423130 Tablet(s) TAKE ONE TABLET BY MOUTH EVERY NIGHT AT BEDTIME 07/19/2015 01/14/2016 Inactive Lomotil 2.5 mg-0.025 mg tablet RxNorm: 1659325 1 Tablet(s) PO daily as needed 06/06/2015 01/11/2017 Inactive clonazepam 0.5 mg tablet RxNorm: 194888 Tablet(s) TAKE 2 TABLETS BY MOUTH AT BEDTIME NEEDED 05/10/2015 08/06/2015 Inactive sucralfate 1 gram tablet RxNorm: 897677 TAKE ONE-HALF TABLET BY MOUTH TWO TIMES A DAY ONE HOUR BEFORE MEALS 05/04/201501/26 Inactive meclizine 25 mg tablet RxNorm: 826946 1/2-1 Tablet(s) PO Q6 PRN 03/15/2015 08/24/2017 Inactive spironolactone 25 mg tablet RxNorm: 652045 1 Tablet(s) PO daily 03/14/2015 01/27/2016 Inactive spironolactone 25 mg tablet RxNorm: 131135 1 Tablet(s) PO daily 03/14/2015 03/13/2015 Inactive clonazepam 0.5 mg tablet RxNorm: 420903 TAKE 2 TABLETS BY MOUTH AT BEDTIME NEEDED 02/08/2015 05/02/2015 Inactive folic acid 1 mg tablet RxNorm: 099169 1 Tablet(s) PO daily 02/01/2016 Inactive clonazepam 0.5 mg tablet RxNorm: 029238 TAKE 2 TABLETS BY MOUTH AT BEDTIME NEEDED 02/06/2015 02/08/2015 Inactive amlodipine 10 mg tablet RxNorm: 928952 1/2 Tablet(s) PO daily 02/06/2015 07/18/2015 Inactive this replaces her 5mg pill OneTouch Ultra Test strips RxNorm: TEST ONCE DAILY 01/30/2015 07/28/2015 Inactive Mirapex 0.5 mg tablet RxNorm: 083005 TAKE ONE TABLET BY MOUTH EVERY NIGHT AT BEDTIME 01/29/2015 07/18/2015 Inactive sucralfate 1 gram tablet RxNorm: 841548 TAKE ONE-HALF TABLET BY MOUTH TWO TIMES A DAY ONE HOUR BEFORE MEALS 01/11/201504/10 Inactive OneTouch Ultra Test strips RxNorm: 1 Miscellaneous daily 11/1401/29/2015 Inactive amlodipine 10 mg tablet RxNorm: 513108 1 Tablet(s) PO daily 02/05/2015 Inactive this replaces her 5mg pill clonazepam 0.5 mg tablet RxNorm: 320966 2 Tablet(s) PO QHS 10/201402/05/2015 Inactive sucralfate 1 gram tablet RxNorm: 789026 1/2 Tablet(s) PO BID 1 hour before meal 10/11/2014 01/08/2015 Inactive losartan 100 mg tablet RxNorm: 022717 1 Tablet(s) PO daily 04/201410/05/2015 Inactive amlodipine 5 mg tablet RxNorm: 468490 1 Tablet(s) PO daily 04/201410/30/2014 Inactive Imuran 50 mg tablet RxNorm: 524265 1.5 (75) Tablet(s) PO daily 10/11/2014 08/09/2015 Inactive Lomotil 2.5 mg-0.025 mg tablet RxNorm: 5657812 1 Tablet(s) PO daily as needed 10/11/2014 06/05/2015 Inactive pravastatin 80 mg tablet RxNorm: 996041 1 Tablet(s) PO QPM 04/201410/05/2015 Inactive Klor-Con M20 mEq tablet,extended release RxNorm: 874963 1 Tablet(s) PO TID 10/11/2014 10/05/2015 Inactive Mirapex 0.5 mg tablet RxNorm: 508741 1 Tablet(s) PO QHS 201401/28/2015 Inactive Prozac 40 mg capsule RxNorm: 296901 1 Capsule(s) PO daily 10/1110/05/2015 Inactive Colazal 750 mg capsule RxNorm: 469550 1 Capsule(s) PO TID No Start Date Active Combigan 0.2 %-0.5 % eye drops RxNorm: 433326 1 Drop(s) ophthalmic (eye) BID No Start Date Active Lumigan 0.01 % eye drops RxNorm: 8137761 1 Drop(s) OPH QHS No Start Date Active Prolia 60 mg/mL subcutaneous syringe RxNorm: 154993 1 Milliliter(s) SQ every 6 months No Start Date Active Vitamin D2 50,000 unit capsule RxNorm: 532539 1 Capsule(s) PO QW No Start Date 08/06/2015 Inactive OneTouch Ultra Test strips RxNorm: 1 Miscellaneous daily No Start Date 11/13/2014 Inactive Plavix 75 mg tablet RxNorm: 428282 1 Tablet(s) PO daily No Start Date 06/17/2017 Inactive Lomotil 2.5 mg-0.025 mg tablet RxNorm: 8520524 1 Tablet(s) PO daily as needed No Start Date 10/10/2014 Inactive folic acid 1 mg tablet RxNorm: 451595 1 Tablet(s) PO daily No Start Date 02/06/2015 Inactive amlodipine 5 mg tablet RxNorm: 533149 1 Tablet(s) PO daily No Start Date 10/10/2014 Inactive Imuran 50 mg tablet RxNorm: 680577 1 1/2 (75) Tablet(s) PO daily No Start Date 10/10/2014 Inactive Boniva 3 mg/3 mL intravenous syringe RxNorm: 907013 Milliliter(s) IV No Start Date 07/18/2015 Inactive potassium chloride 20 meq RxNorm: 426907 1 PO TID No Start Date 10/10/2014 Inactive sucralfate 1 gram tablet RxNorm: 321826 1/2 Tablet(s) PO BID 1 hour before meal No Start Date 10/10/2014 Inactive losartan 100 mg tablet RxNorm: 615317 1 Tablet(s) PO daily No Start Date 10/10/2014 Inactive Vitamin D3 2,000 unit tablet RxNorm: 320776 1 Tablet(s) PO daily No Start Date 08/23/2015 Inactive Calcium + D oral RxNorm: 658554 oral No Start Date 08/24/2017 Inactive Prozac 40 mg capsule RxNorm: 581653 1 Capsule(s) PO daily No Start Date 10/10/2014 Inactive timolol 0.5 % eye drops RxNorm: 490982 1 Drop(s) OPH BID No Start Date 12/28/2017 Inactive clonazepam 0.5 mg tablet RxNorm: 895895 2 Tablet(s) PO QHS No Start Date 10/16/2014 Inactive amlodipine 5 mg tablet RxNorm: 982372 1 Tablet(s) PO daily No Start Date 08/22/2015 Inactive pravastatin 80 mg tablet RxNorm: 927112 1 Tablet(s) PO QPM No Start Date 10/10/2014 Inactive Lialda 1.2 gram tablet,delayed release RxNorm: 124124 3 Tablet(s) PO daily No Start Date 07/01/2016 Inactive Alavert 10 mg disintegrating tablet RxNorm: 129705 1 Tablet(s) PO daily as needed No [...] Code Item Item Code Result Date %Hba1C Iyn642 % HbA1c 97826-6 6.3 % 05/10/2018 %Hba1C Hlk244 Gluc Ave 134 mg/dL 05/10/2018 Hepatic Njc851 ALBUMIN 4.0 g/dL 05/10/2018 Hepatic Xrb976 TPRO 6.6 g/dL 05/10/2018 Hepatic Bgj941 GLOB 2.6 g/dL 05/10/2018 Hepatic Rbw590 A/G Ratio 1.5 Ratio 05/10/2018 Hepatic Gcf690 ALK PHOS 39 U/L 05/10/2018 Hepatic Zhe276 ALT(SGPT) 19 U/L 05/10/2018 Hepatic Uin179 AST(SGOT) 28 U/L 05/10/2018 Hepatic Xkq225 BILI T 0.3 mg/dL 05/10/2018 Hepatic Gmc143 BILI D 0.1 mg/dL 05/10/2018 Hepatic Twl403 BILI I 0.2 mg/dL 05/10/2018 C-Reactive Protein [...] 31.7 pg 04/23/2018 Cbc With Differential Ord2 [place]% 10.1 % 04/23/2018 Cbc With Differential Ord2 [...] 1.17 K/ul 04/23/2018 Cbc With Differential Ord2 [place] ABS# 0.6 K/ul 04/23/2018 Cbc With Differential Ord2 Eos ABS# 0.1 K/ul 04/23/2018 Cbc With Differential Ord2 Baso ABS# 0.0 K/ul 04/23/2018 Sed Rate Ord21 ESR 19 mm/hr 04/23/2018 Comp Metabolic Wgq736 NA 134 mEq/L 04/23/2018 Comp Metabolic Ldx208 K 4.6 mEq/L 04/23/2018 Comp Metabolic Haw797 CL 103 mEq/L 04/23/2018 Comp Metabolic Ouv052 CO2 22.0 mEq/L 04/23/2018 Comp Metabolic Zeo674 ANION GAP 14 04/23/2018 Comp Metabolic Dzl504 GLUCOSE 133 mg/dL 04/23/2018 Comp Metabolic Nrf371 Creat 0.9 mg/dL 04/23/2018 Comp Metabolic Igg634 eGFR 62 ml/min/1.73m2 04/23/2018 Comp Metabolic Zja333 BUN 11 mg/dL 04/23/2018 Comp Metabolic Jbn677 B/C Ratio 11.7 Ratio 04/23/2018 Comp Metabolic Lnm580 CALCIUM 9.0 mg/dL 04/23/2018 Comp Metabolic Sbd066 ALK PHOS 42 U/L 04/23/2018 Comp Metabolic Ruv345 AST(SGOT) 44 U/L 04/23/2018 Comp Metabolic Yml446 ALT(SGPT) 25 U/L 04/23/2018 Comp Metabolic Okb610 BILI T 0.4 mg/dL 04/23/2018 Comp Metabolic Qpq667 ALBUMIN 4.2 g/dL 04/23/2018 Comp Metabolic Kgw678 TPRO 6.6 g/dL 04/23/2018 Comp Metabolic Luw475 GLOB 2.4 g/dL 04/23/2018 Comp Metabolic Wvv976 A/G Ratio 1.7 Ratio 04/23/2018 Comp Metabolic Grf144 Osmo 270 mOsmo 04/23/2018 Vitamin D 25 Oh Diu2755 VITAMIN D, 25 HYDROXY 28.88 ng/mL C-Reactive [...] 31.9 pg 02/23/2018 Cbc With Differential Ord2 [place]% 8.8 % 02/23/2018 Cbc With Differential Ord2 [...] 1.24 K/ul 02/23/2018 Cbc With Differential Ord2 [place] ABS# 0.5 K/ul 02/23/2018 Cbc With Differential Ord2 Eos ABS# 0.1 K/ul 02/23/2018 Cbc With Differential Ord2 Baso ABS# 0.0 K/ul 02/23/2018 Comp Metabolic Dxj408 NA 136 mEq/L 02/23/2018 Comp Metabolic Ccx807 K 4.0 mEq/L 02/23/2018 Comp Metabolic Kay505 CL 105 mEq/L 02/23/2018 Comp Metabolic Mpr015 CO2 20.0 mEq/L 02/23/2018 Comp Metabolic Tlp154 ANION GAP 15 02/23/2018 Comp Metabolic Efy816 GLUCOSE 129 mg/dL 02/23/2018 Comp Metabolic Knb189 Creat 0.9 mg/dL 02/23/2018 Comp Metabolic Gai913 eGFR 66 ml/min/1.73m2 02/23/2018 Comp Metabolic Dxq392 BUN 11 mg/dL 02/23/2018 Comp Metabolic Gzx148 B/C Ratio 12.2 Ratio 02/23/2018 Comp Metabolic Ytd624 CALCIUM 8.6 mg/dL 02/23/2018 Comp Metabolic Dyw324 ALK PHOS 43 U/L 02/23/2018 Comp Metabolic Gwy056 AST(SGOT) 33 U/L 02/23/2018 Comp Metabolic Yya473 ALT(SGPT) 24 U/L 02/23/2018 Comp Metabolic Hhn343 BILI T 0.5 mg/dL 02/23/2018 Comp Metabolic Mkc452 ALBUMIN 4.2 g/dL 02/23/2018 Comp Metabolic Fea946 TPRO 6.8 g/dL 02/23/2018 Comp Metabolic Zfq767 GLOB 2.6 g/dL 02/23/2018 Comp Metabolic Vxf181 A/G Ratio 1.6 Ratio 02/23/2018 Comp Metabolic Mba467 Osmo 273 mOsmo 02/23/2018 Vitamin D 25 Oh Exj5202 VITAMIN D, 25 HYDROXY 29.25 ng/mL Sed Rate Ord21 ESR 8 mm/hr 02/23/2018 Hepatic Sij563 ALBUMIN 4.3 g/dL 01/05/2018 Hepatic Zxt875 TPRO 6.7 g/dL 01/05/2018 Hepatic Ckl230 GLOB 2.5 g/dL 01/05/2018 Hepatic Ity221 A/G Ratio 1.7 Ratio 01/05/2018 Hepatic Alk682 ALK PHOS 53 U/L 01/05/2018 Hepatic Zxu485 ALT(SGPT) 31 U/L 01/05/2018 Hepatic Hqq696 AST(SGOT) 44 U/L 01/05/2018 Hepatic Uwq291 BILI T 0.4 mg/dL 01/05/2018 Hepatic Nwo963 BILI D 0.1 mg/dL 01/05/2018 Hepatic Htm939 BILI I 0.3 mg/dL 01/05/2018 Comp Metabolic Wid591 NA 133 mEq/L 10/20/2017 Comp Metabolic Mco897 K 4.1 mEq/L 10/20/2017 Comp Metabolic Tor373 CL 103 mEq/L 10/20/2017 Comp Metabolic Fgn268 CO2 23.0 mEq/L 10/20/2017 Comp Metabolic Xtm433 ANION GAP 11 10/20/2017 Comp Metabolic Ajg359 GLUCOSE 118 mg/dL 10/20/2017 Comp Metabolic Gaj370 Creat 0.9 mg/dL 10/20/2017 Comp Metabolic Geq915 eGFR 64 ml/min/1.73m2 10/20/2017 Comp Metabolic Avc432 BUN 14 mg/dL 10/20/2017 Comp Metabolic Yzb711 B/C Ratio 15.2 Ratio 10/20/2017 Comp Metabolic Qty282 CALCIUM 8.8 mg/dL 10/20/2017 Comp Metabolic Ulg763 ALK PHOS 43 U/L 10/20/2017 Comp Metabolic Bgv977 AST(SGOT) 31 U/L 10/20/2017 Comp Metabolic Ucj008 ALT(SGPT) 25 U/L 10/20/2017 Comp Metabolic Nvx529 BILI T 0.4 mg/dL 10/20/2017 Comp Metabolic Cpc580 ALBUMIN 4.1 g/dL 10/20/2017 Comp Metabolic Ydh333 TPRO 6.6 g/dL 10/20/2017 Comp Metabolic Qhy800 GLOB 2.5 g/dL 10/20/2017 Comp Metabolic Cbo273 A/G Ratio 1.6 Ratio 10/20/2017 Comp Metabolic Bzh862 Osmo 268 mOsmo 10/20/2017 Vitamin D 25 Oh Vjz5524 VITAMIN D, 25 HYDROXY 42.65 ng/mL C-Reactive [...] 32.0 pg 10/20/2017 Cbc With Differential Ord2 [place]% 8.6 % 10/20/2017 Cbc With Differential Ord2 [...] 1.16 K/ul 10/20/2017 Cbc With Differential Ord2 [place] ABS# 0.5 K/ul 10/20/2017 Cbc With Differential [...] 32.2 pg 07/21/2017 Cbc With Differential Ord2 [place]% 9.7 % 07/21/2017 Cbc With Differential Ord2 [...] 1.20 K/ul 07/21/2017 Cbc With Differential Ord2 [place] ABS# 0.6 K/ul 07/21/2017 Cbc With Differential Ord2 Eos ABS# 0.0 K/ul 07/21/2017 Cbc With Differential Ord2 Baso ABS# 0.0 K/ul 07/21/2017 Sed Rate Ord21 ESR 14 mm/hr 07/21/2017 Comp Metabolic Qdv359 NA 135 mEq/L 07/21/2017 Comp Metabolic Iuh907 K 4.5 mEq/L 07/21/2017 Comp Metabolic Wgh341 CL 101 mEq/L 07/21/2017 Comp Metabolic Jbf978 CO2 26.0 mEq/L 07/21/2017 Comp Metabolic Ehk698 ANION GAP 13 07/21/2017 Comp Metabolic Cvo165 GLUCOSE 97 mg/dL 07/21/2017 Comp Metabolic Zyr943 Creat 0.9 mg/dL 07/21/2017 Comp Metabolic Fcw964 eGFR 66 ml/min/1.73m2 07/21/2017 Comp Metabolic Ads443 BUN 13 mg/dL 07/21/2017 Comp Metabolic Jpw690 B/C Ratio 14.4 Ratio 07/21/2017 Comp Metabolic Oiw054 CALCIUM 9.2 mg/dL 07/21/2017 Comp Metabolic Miu148 ALK PHOS 46 U/L 07/21/2017 Comp Metabolic Gjn112 AST(SGOT) 31 U/L 07/21/2017 Comp Metabolic Crp845 ALT(SGPT) 19 U/L 07/21/2017 Comp Metabolic Bku542 BILI T 0.5 mg/dL 07/21/2017 Comp Metabolic Qcq828 ALBUMIN 4.5 g/dL 07/21/2017 Comp Metabolic Udi834 TPRO 7.2 g/dL 07/21/2017 Comp Metabolic Sck386 GLOB 2.7 g/dL 07/21/2017 Comp Metabolic Pdr782 A/G Ratio 1.7 Ratio 07/21/2017 Comp Metabolic Aeu466 Osmo 270 mOsmo 07/21/2017 Vitamin D 25 Oh Lbm1060 VITAMIN D, 25 HYDROXY 31.39 ng/mL C-Reactive [...] 31.9 pg 04/14/2017 Cbc With Differential Ord2 [place]% 9.1 % 04/14/2017 Cbc With Differential Ord2 [...] 1.47 K/ul 04/14/2017 Cbc With Differential Ord2 [place] ABS# 0.7 K/ul 04/14/2017 Cbc With Differential Ord2 Eos ABS# 0.0 K/ul 04/14/2017 Cbc With Differential Ord2 Baso ABS# 0.0 K/ul 04/14/2017 Comp Metabolic Nff054 NA 136 mEq/L 04/14/2017 Comp Metabolic Cxq446 K 4.4 mEq/L 04/14/2017 Comp Metabolic Gae910 CL 104 mEq/L 04/14/2017 Comp Metabolic Dyq226 CO2 21.0 mEq/L 04/14/2017 Comp Metabolic Gln328 ANION GAP 15 04/14/2017 Comp Metabolic Nzw880 GLUCOSE 112 mg/dL 04/14/2017 Comp Metabolic Iab036 Creat 1.1 mg/dL 04/14/2017 Comp Metabolic Xek498 eGFR 51 ml/min/1.73m2 04/14/2017 Comp Metabolic Icx697 BUN 16 mg/dL 04/14/2017 Comp Metabolic Aie471 B/C Ratio 14.3 Ratio 04/14/2017 Comp Metabolic Bix123 CALCIUM 8.9 mg/dL 04/14/2017 Comp Metabolic Bwq807 ALK PHOS 39 U/L 04/14/2017 Comp Metabolic Meo219 AST(SGOT) 24 U/L 04/14/2017 Comp Metabolic Eci304 ALT(SGPT) 18 U/L 04/14/2017 Comp Metabolic Uxw652 BILI T 0.5 mg/dL 04/14/2017 Comp Metabolic Fla194 ALBUMIN 4.3 g/dL 04/14/2017 Comp Metabolic Otk698 TPRO 6.8 g/dL 04/14/2017 Comp Metabolic Kkr585 GLOB 2.5 g/dL 04/14/2017 Comp Metabolic Jqu964 A/G Ratio 1.7 Ratio 04/14/2017 Comp Metabolic Ctk727 Osmo 274 mOsmo 04/14/2017 Vitamin D 25 Oh Ddt6631 VITAMIN D, 25 HYDROXY 29.88 ng/mL Sed Rate Ord21 ESR 15 mm/hr 04/14/2017 C-Reactive Protein Qnt Crqnt CRP 0.1 mg/dl 04/14/2017 C-Reactive Protein Qnt Crqnt CRP 0.1 mg/dl 02/09/2017 Comp Metabolic Mlv316 NA 135 mEq/L 02/09/2017 Comp Metabolic Jdn303 K 4.4 mEq/L 02/09/2017 Comp Metabolic Cqa146 CL 102 mEq/L 02/09/2017 Comp Metabolic Pgs422 CO2 23.0 mEq/L 02/09/2017 Comp Metabolic Flw241 ANION GAP 14 02/09/2017 Comp Metabolic Ztl452 GLUCOSE 98 mg/dL 02/09/2017 Comp Metabolic Rwo484 Creat 0.9 mg/dL 02/09/2017 Comp Metabolic Obm774 eGFR 65 ml/min/1.73m2 02/09/2017 Comp Metabolic Ugd031 BUN 18 mg/dL 02/09/2017 Comp Metabolic Auo463 B/C Ratio 19.8 Ratio 02/09/2017 Comp Metabolic Eeb326 CALCIUM 9.2 mg/dL 02/09/2017 Comp Metabolic Hni182 ALK PHOS 42 U/L 02/09/2017 Comp Metabolic Mmu711 AST(SGOT) 24 U/L 02/09/2017 Comp Metabolic Sjg107 ALT(SGPT) 16 U/L 02/09/2017 Comp Metabolic Fkr966 BILI T 0.4 mg/dL 02/09/2017 Comp Metabolic Hwt422 ALBUMIN 4.4 g/dL 02/09/2017 Comp Metabolic Vzm752 TPRO 7.0 g/dL 02/09/2017 Comp Metabolic Dth181 GLOB 2.6 g/dL 02/09/2017 Comp Metabolic Ouq171 A/G Ratio 1.7 Ratio 02/09/2017 Comp Metabolic Ceu597 Osmo 272 mOsmo 02/09/2017 Cbc With Differential [...] 32.5 pg 02/09/2017 Cbc With Differential Ord2 [place]% 8.7 % 02/09/2017 Cbc With Differential Ord2 [...] 1.06 K/ul 02/09/2017 Cbc With Differential Ord2 [place] ABS# 0.6 K/ul 02/09/2017 Cbc With Differential Ord2 Eos ABS# 0.0 K/ul 02/09/2017 Cbc With Differential Ord2 Baso ABS# 0.0 K/ul 02/09/2017 Vitamin D 25 Oh [id number] VITAMIN D, 25 HYDROXY 36.00 ng/mL Sed Rate Ord21 ESR 16 mm/hr 02/09/2017 %Hba1C Vxx984 % HbA1c 82183-9 6.1 % 05/20/2016 %Hba1C Dxx021 Gluc Ave 128 mg/dL 05/20/2016 Lipid Ord30 CHOL 212 mg/dL 05/20/2016 Lipid Ord30 HDL 52.0 mg/dl 05/20/2016 Lipid Ord30 TRIG 149 mg/dL 05/20/2016 Lipid Ord30 LDL 130 mg/dL 05/20/2016 Lipid Ord30 C/HDL 4.1 Ratio 05/20/2016 Comp Metabolic Uzc435 NA 134 mEq/L 04/21/2016 Comp Metabolic Mew558 K 5.0 mEq/L 04/21/2016 Comp Metabolic Ati331 CL 103 mEq/L 04/21/2016 Comp Metabolic Nne563 CO2 24.0 mEq/L 04/21/2016 Comp Metabolic Plf066 ANION GAP 12 04/21/2016 Comp Metabolic Qku004 GLUCOSE 122 mg/dL 04/21/2016 Comp Metabolic Bfg252 Creat 1.1 mg/dL 04/21/2016 Comp Metabolic Qwp865 eGFR 52 ml/min/1.73m2 04/21/2016 Comp Metabolic Bdl723 BUN 24 mg/dL 04/21/2016 Comp Metabolic Umf112 B/C Ratio 21.6 Ratio 04/21/2016 Comp Metabolic Myo446 CALCIUM 9.7 mg/dL 04/21/2016 Comp Metabolic Dwh810 ALK PHOS 51 U/L 04/21/2016 Comp Metabolic Wnv239 AST(SGOT) 23 U/L 04/21/2016 Comp Metabolic Jpt306 ALT(SGPT) 17 U/L 04/21/2016 Comp Metabolic Gij939 BILI T 0.5 mg/dL 04/21/2016 Comp Metabolic Kmg633 ALBUMIN 4.4 g/dL 04/21/2016 Comp Metabolic Loe680 TPRO 7.3 g/dL 04/21/2016 Comp Metabolic Gbt582 GLOB 2.9 g/dL 04/21/2016 Comp Metabolic Flm720 A/G Ratio 1.5 Ratio 04/21/2016 Comp Metabolic Ezm547 Osmo 274 mOsmo 04/21/2016 Cbc With Differential [...] 32.0 pg 04/21/2016 Cbc With Differential Ord2 [place]% 9.1 % 04/21/2016 Cbc With Differential Ord2 [...] 1.39 K/ul 04/21/2016 Cbc With Differential Ord2 [place] ABS# 0.6 K/ul 04/21/2016 Cbc With Differential Ord2 Eos ABS# 0.1 K/ul 04/21/2016 Cbc With Differential Ord2 Baso ABS# 0.0 K/ul 04/21/2016 Bili D Ord93 BILI D 0.1 mg/dL 04/21/2016 Bili D Ord93 BILI I 0.4 mg/dL 04/21/2016 Vitamin D 25 Oh Cix6658 VITAMIN D, 25 HYDROXY 51.65 ng/mL Sed Rate Ord21 ESR 26 mm/hr 04/21/2016 C-Reactive Protein Qnt Crqnt CRP 0.1 mg/dl 04/21/2016 Comp Metabolic Whz250 NA 133 mEq/L 03/18/2016 Comp Metabolic Gfy704 K 4.9 mEq/L 03/18/2016 Comp Metabolic Mjt769 CL 102 mEq/L 03/18/2016 Comp Metabolic Zjb729 CO2 25.0 mEq/L 03/18/2016 Comp Metabolic Nom067 ANION GAP 11 03/18/2016 Comp Metabolic Yvn834 GLUCOSE 114 mg/dL 03/18/2016 Comp Metabolic Jey113 Creat 1.1 mg/dL 03/18/2016 Comp Metabolic Dbn412 eGFR 54 ml/min/1.73m2 03/18/2016 Comp Metabolic Xna523 BUN 23 mg/dL 03/18/2016 Comp Metabolic Vsu753 B/C Ratio 21.3 Ratio 03/18/2016 Comp Metabolic Xyd573 CALCIUM 9.7 mg/dL 03/18/2016 Comp Metabolic Qoh009 ALK PHOS 54 U/L 03/18/2016 Comp Metabolic Stl354 AST(SGOT) 21 U/L 03/18/2016 Comp Metabolic Vco109 ALT(SGPT) 15 U/L 03/18/2016 Comp Metabolic Bnx763 BILI T 0.4 mg/dL 03/18/2016 Comp Metabolic Awc868 ALBUMIN 4.4 g/dL 03/18/2016 Comp Metabolic Pyv563 TPRO 7.4 g/dL 03/18/2016 Comp Metabolic Wmn881 GLOB 3.0 g/dL 03/18/2016 Comp Metabolic Ovd701 A/G Ratio 1.5 Ratio 03/18/2016 Comp Metabolic Qbe471 Osmo 271 mOsmo 03/18/2016 Vitamin D 25 Oh Dei6362 VITAMIN D, 25 HYDROXY 46.10 ng/mL Sed Rate Ord21 ESR 26 mm/hr 02/13/2016 Comp Metabolic Dhv851 NA 133 mEq/L 02/13/2016 Comp Metabolic Gyc389 K 4.8 mEq/L 02/13/2016 Comp Metabolic Swj766 CL 104 mEq/L 02/13/2016 Comp Metabolic Vkl756 CO2 23.0 mEq/L 02/13/2016 Comp Metabolic Cmp240 ANION GAP 11 02/13/2016 Comp Metabolic Xzu589 GLUCOSE 104 mg/dL 02/13/2016 Comp Metabolic Dwv711 Creat 1.0 mg/dL 02/13/2016 Comp Metabolic Xgi122 eGFR 56 ml/min/1.73m2 02/13/2016 Comp Metabolic Zlo539 BUN 25 mg/dL 02/13/2016 Comp Metabolic Sdq545 B/C Ratio 24.0 Ratio 02/13/2016 Comp Metabolic Zqb926 CALCIUM 9.1 mg/dL 02/13/2016 Comp Metabolic Iwo907 ALK PHOS 43 U/L 02/13/2016 Comp Metabolic Kap912 AST(SGOT) 21 U/L 02/13/2016 Comp Metabolic Vwl337 ALT(SGPT) 17 U/L 02/13/2016 Comp Metabolic Shj992 BILI T 0.4 mg/dL 02/13/2016 Comp Metabolic Fgz118 ALBUMIN 4.3 g/dL 02/13/2016 Comp Metabolic Xfh950 TPRO 7.1 g/dL 02/13/2016 Comp Metabolic Zvp725 GLOB 2.9 g/dL 02/13/2016 Comp Metabolic Rdi146 A/G Ratio 1.5 Ratio 02/13/2016 Comp Metabolic Zip970 Osmo 271 mOsmo 02/13/2016 C-Reactive Protein Qnt [...] 31.6 pg 02/13/2016 Cbc With Differential Ord2 [place]% 9.7 % 02/13/2016 Cbc With Differential Ord2 [...] 1.17 K/ul 02/13/2016 Cbc With Differential Ord2 [place] ABS# 0.6 K/ul 02/13/2016 Cbc With Differential Ord2 Eos ABS# 0.1 K/ul 02/13/2016 Cbc With Differential Ord2 Baso ABS# 0.0 K/ul 02/13/2016 Comp Metabolic Jqr803 NA 132 mEq/L 10/08/2015 Comp Metabolic Ant026 K 4.7 mEq/L 10/08/2015 Comp Metabolic Yms006 CL 101 mEq/L 10/08/2015 Comp Metabolic Pzb301 CO2 24.0 mEq/L 10/08/2015 Comp Metabolic Dzw861 ANION GAP 12 10/08/2015 Comp Metabolic Drv880 GLUCOSE 85 mg/dL 10/08/2015 Comp Metabolic Mod232 Creat 0.9 mg/dL 10/08/2015 Comp Metabolic Ilt615 eGFR 66 ml/min/1.73m2 10/08/2015 Comp Metabolic Uti165 BUN 29 mg/dL 10/08/2015 Comp Metabolic Qtw804 B/C Ratio 32.2 Ratio 10/08/2015 Comp Metabolic Ypv676 CALCIUM 9.1 mg/dL 10/08/2015 Comp Metabolic Cgn555 ALK PHOS 40 U/L 10/08/2015 Comp Metabolic Smu479 AST(SGOT) 18 U/L 10/08/2015 Comp Metabolic Dhv208 ALT(SGPT) 14 U/L 10/08/2015 Comp Metabolic Fvz376 BILI T 0.3 mg/dL 10/08/2015 Comp Metabolic Lcs084 ALBUMIN 4.1 g/dL 10/08/2015 Comp Metabolic Rwe195 TPRO 6.8 g/dL 10/08/2015 Comp Metabolic Zhp885 GLOB 2.7 g/dL 10/08/2015 Comp Metabolic Dqf717 A/G Ratio 1.5 Ratio 10/08/2015 Comp Metabolic Oju516 Osmo 270 mOsmo 10/08/2015 C-Reactive Protein Qnt [...] 96.0 fl 10/08/2015 Cbc With Differential Ord2 [place]% 10.5 % 10/08/2015 Cbc With Differential Ord2 [...] 1.24 K/ul 10/08/2015 Cbc With Differential Ord2 [place] ABS# 0.8 K/ul 10/08/2015 Cbc With Differential Ord2 Eos ABS# 0.0 K/ul 10/08/2015 Cbc With Differential Ord2 Baso ABS# 0.0 K/ul 10/08/2015 Sed Rate Ord21 ESR 20 mm/hr 10/08/2015 Vitamin D 25 Oh Ubr0268 VITAMIN D, 25 HYDROXY 54.28 ng/mL Tsh Ord6 hTSH II 1.72 uIU/mL 09/26/2015 Free T4 Tzt736 FREE T4 0.80 ng/dL 09/26/2015 Comp Metabolic Qtf193 NA 133 mEq/L 08/06/2015 Comp Metabolic Kbg732 K 4.6 mEq/L 08/06/2015 Comp Metabolic Zst090 CL 102 mEq/L 08/06/2015 Comp Metabolic Nfw821 CO2 24.0 mEq/L 08/06/2015 Comp Metabolic Qze309 ANION GAP 12 08/06/2015 Comp Metabolic Fst838 GLUCOSE 105 mg/dL 08/06/2015 Comp Metabolic Jte896 Creat 1.0 mg/dL 08/06/2015 Comp Metabolic Soz312 eGFR 60 ml/min/1.73m2 08/06/2015 Comp Metabolic Oud913 BUN 28 mg/dL 08/06/2015 Comp Metabolic Lra238 B/C Ratio 28.6 Ratio 08/06/2015 Comp Metabolic Yrj174 CALCIUM 9.2 mg/dL 08/06/2015 Comp Metabolic Jkg389 ALK PHOS 42 U/L 08/06/2015 Comp Metabolic Wmp112 AST(SGOT) 20 U/L 08/06/2015 Comp Metabolic Gns294 ALT(SGPT) 16 U/L 08/06/2015 Comp Metabolic Tyk290 BILI T 0.3 mg/dL 08/06/2015 Comp Metabolic Uho328 ALBUMIN 4.3 g/dL 08/06/2015 Comp Metabolic Xvj191 TPRO 6.9 g/dL 08/06/2015 Comp Metabolic Fts835 GLOB 2.7 g/dL 08/06/2015 Comp Metabolic Mbb813 A/G Ratio 1.6 Ratio 08/06/2015 Comp Metabolic Vyr499 Osmo 272 mOsmo 08/06/2015 C-Reactive Protein Qnt Crqnt CRP 0.00 mg/dl 08/06/2015 Vitamin D 25 Oh Swh3011 VITAMIN D, 25 HYDROXY 36.25 ng/mL Cbc [...] 20.4 % 08/06/2015 Cbc With Differential Ord2 [place]% 8.9 % 08/06/2015 Cbc With Differential Ord2 [...] 1.31 K/ul 08/06/2015 Cbc With Differential Ord2 [place] ABS# 0.6 K/ul 08/06/2015 Cbc With Differential [...] Ord93 BILI I 0.4 mg/dL 04/04/2015 %Hba1C Hid046 % HbA1c 11406-6 5.7 % 04/04/2015 %Hba1C Fqk144 Gluc Ave 117 mg/dL 04/04/2015 Vitamin D 25 Oh Odx8162 VITAMIN D, 25 HYDROXY 47.62 ng/mL C-Reactive [...] Ord2 RDW 13.0 % 04/04/2015 Comp Metabolic Caq539 NA 132 mEq/L 04/04/2015 Comp Metabolic Cyw120 K 4.6 mEq/L 04/04/2015 Comp Metabolic Nol002 CL 100 mEq/L 04/04/2015 Comp Metabolic Wpl997 CO2 22.0 mEq/L 04/04/2015 Comp Metabolic Sra364 ANION GAP 15 04/04/2015 Comp Metabolic Jsh046 GLUCOSE 118 mg/dL 04/04/2015 Comp Metabolic Fxd026 Creat 1.0 mg/dL 04/04/2015 Comp Metabolic Ypy932 eGFR 60 ml/min/1.73m2 04/04/2015 Comp Metabolic Sfo766 BUN 18 mg/dL 04/04/2015 Comp Metabolic Kbt351 B/C Ratio 18.4 Ratio 04/04/2015 Comp Metabolic Wsm378 CALCIUM 9.6 mg/dL 04/04/2015 Comp Metabolic Qch567 ALK PHOS 63 U/L 04/04/2015 Comp Metabolic Vrg007 AST(SGOT) 17 U/L 04/04/2015 Comp Metabolic Uiv014 ALT(SGPT) 13 U/L 04/04/2015 Comp Metabolic Eox139 BILI T 0.5 mg/dL 04/04/2015 Comp Metabolic Gcz442 ALBUMIN 4.6 g/dL 04/04/2015 Comp Metabolic Tgo781 TPRO 7.4 g/dL 04/04/2015 Comp Metabolic Mrs724 GLOB 2.8 g/dL 04/04/2015 Comp Metabolic Dab847 A/G Ratio 1.6 Ratio 04/04/2015 Comp Metabolic Fva806 Osmo 268 mOsmo 04/04/2015 Sed Rate Ord21 ESR 16 mm/hr 04/04/2015 Lipid Ord30 CHOL 214 mg/dL 04/04/2015 Lipid Ord30 HDL 61.0 mg/dl 04/04/2015 Lipid Ord30 TRIG 155 mg/dL 04/04/2015 Lipid Ord30 LDL 122 mg/dL 04/04/2015 Lipid Ord30 C/HDL 3.5 Ratio 04/04/2015 %Hba1C Tzh264 % HbA1c 05030-5 5.9 % 11/28/2014 %Hba1C Lcb178 Gluc Ave 123 mg/dL 11/28/2014 Cbc With [...] Rate Ord21 ESR 19 mm/hr 11/27/2014 Hepatic Jrr038 ALBUMIN 4.4 g/dL 11/27/2014 Hepatic Djh402 TPRO 7.0 g/dL 11/27/2014 Hepatic Ucf683 GLOB 2.6 g/dL 11/27/2014 Hepatic Zln454 A/G Ratio 1.7 Ratio 11/27/2014 Hepatic Aet528 ALK PHOS 63 U/L 11/27/2014 Hepatic Pvc063 ALT(SGPT) 14 U/L 11/27/2014 Hepatic Qne797 AST(SGOT) 19 U/L 11/27/2014 Hepatic Ium925 BILI T 0.4 mg/dL 11/27/2014 Hepatic Xuj754 BILI D 0.1 mg/dL 11/27/2014 Hepatic Ozo738 BILI I 0.3 mg/dL 11/27/2014 Lipid Ord30 [...] lips 01/12/2018 None Full Exam - General 1995 Ears/Nose/Throat lips/teeth/gingiva Overall: normal dentition 01/12/2018 None [...] Formatting Model/CDA Sections, Assigned to/Tabitha Velasquez CPT-4: 94349Lhjkgqu 12/29/2017 PPPS, SUBSEQ VISIT CPT -4: G0439 09/17/2017 PPPS, SUBSEQ VISIT CPT -4: G0439 08/21/2016 PNEUMOCOCCAL VACC [address]: 33922045 CPT-4: 79644 02/20/2016 ADMIN PNEUMOCOCCAL VACCINE SNOMED CT: 42212940 CPT-4: G0009 02/20/2016 ADMIN INFLUENZA VIRUS VAC CPT-4: G0008 01/23/2016 FLU VACC 4 KATIE 3 YRS PLUS IM SNOMED CT: 18980851 CPT-4: 20680 01/23/2016 PPPS, SUBSEQ VISIT CPT -4: G0439 07/19/2015 Vital Signs Date Vital 05/17/2018 Blood Pressure 1: 112/74 Code : 8480-6 BMI: 30.2 Code : 70741-0 Heart Rate 1 : 64 bpm Height: 5'1" SpO2: 97% Weight: 160 lbs 01/12/2018 Blood Pressure 1: 124/70 Code : 8480-6 BMI: 30.2 Code : 36183-8 Heart Rate 1 : 59 bpm Height: 5'1" SpO2: 98% Weight: 160 lbs 12/29/2017 Blood Pressure 1: 148/82 Code : 8480-6 BMI: 30.4 Code : 53189-7 Heart Rate 1 : 60 bpm Height: 5'1" SpO2: 99% Weight: 161 lbs 09/17/2017 Height: Weight: 08/25/2017 Blood Pressure 1: 130/72 Code : 8480-6 BMI: 29.9 Code : 90678-0 Heart Rate 1 : 70 bpm Height: 5'1" SpO2: 93% Weight: 158 lbs 07/21/2017 Blood Pressure 1: 150/84 Code : 8480-6 BMI: 29.5 Code : 21644-8 Heart Rate 1 : 62 bpm Height: 5'1" SpO2: 98% Weight: 156 lbs 06/17/2017 Blood Pressure 1: 148/86 Code : 8480-6 BMI: 29.5 Code : 83479-5 Heart Rate 1 : 64 bpm Height: 5'1" SpO2: 98% Weight: 156 lbs 02/17/2017 Blood Pressure 1: 144/86 Code : 8480-6 BMI: 28.7 Code : 21417-7 Heart Rate 1 : 64 bpm Height: 5'1" SpO2: 96% Weight: 152 lbs 01/02/2017 Blood Pressure 1: 132/78 Code : 8480-6 BMI: 28.3 Code : 16915-0 Heart Rate 1 : 71 bpm Height: 5'1" SpO2: 97% Weight: 150 lbs 12/05/2016 Blood Pressure 1: 140/76 Code : 8480-6 BMI: 29.5 Code : 71885-3 Heart Rate 1 : 66 bpm Height: 5'1" SpO2: 98% Weight: 156 lbs 08/21/2016 Blood Pressure 1: 142/78 Code : 8480-6 BMI: 29.9 Code : 52769-5 Heart Rate 1 : 62 bpm Height: 5'1" SpO2: 98% Waist Measure (cm): 79 cm Weight: 158 lbs 08/19/2016 Blood Pressure 1: 142/78 Code : 8480-6 BMI: 29.9 Code : 12973-6 Heart Rate 1 : 62 bpm Height: 5'1" SpO2: 98% Weight: 158 lbs 05/20/2016 Blood Pressure 1: 152/76 Code : 8480-6 Blood Pressure 1: 144/80 Code: 8480-6 BMI: 29.3 Code: 25884-5 Heart Rate 1: 60 bpm Height: 5'1" SpO2: 95% Weight: 155 lbs 01/23/2016 Blood Pressure 1: 138/78 Code : 8480-6 BMI: 29.7 Code : 07058-6 Heart Rate 1 : 64 bpm Height: 5'1" SpO2: 98% Weight: 157 lbs 09/26/2015 Blood Pressure 1: 136/76 Code : 8480-6 BMI: 28.3 Code : 05135-3 Heart Rate 1 : 70 bpm Height: 5'1" SpO2: 98% Weight: 150 lbs 08/23/2015 Blood Pressure 1: 126/78 Code : 8480-6 BMI: 27.8 Code : 78537-0 Heart Rate 1 : 68 bpm Height: 5'1" SpO2: 97% Weight: 147 lbs 07/19/2015 Blood Pressure 1: 146/70 Code : 8480-6 BMI: 26.8 Code : 62071-7 Heart Rate 1 : 58 bpm Height: 5'1" SpO2: 96% Waist Measure (cm): 84 cm Weight: 142 lbs 04/17/2015 Blood Pressure 1: 132/62 Code : 8480-6 BMI: 25.3 Code : 88979-6 Heart Rate 1 : 98 bpm Height: 5'1" SpO2: 97% Weight: 134 lbs 03/15/2015 Blood Pressure 1: 158/72 Code : 8480-6 Blood Pressure 1: 160/70 Code: 8480-6 BMI: 25.5 Code: 17729-1 Heart Rate 1: 74 bpm Heart Rate 1: 72 bpm Height: 5'1" Height: SpO2: 98% Weight: 135 lbs Weight: 02/06/2015 Blood Pressure 1: 142/82 Code : 8480-6 BMI: 25.5 Code : 89793-0 Heart Rate 1 : 82 bpm Height: 5'1" SpO2: 96% Weight: 135 lbs 12/13/2014 Blood Pressure 1: 136/64 Code : 8480-6 BMI: 24.9 Code : 07243-0 Heart Rate 1 : 86 bpm Height: 5'1" SpO2: 95% Weight: 132 lbs 10/11/2014 Blood Pressure 1: 140/80 Code : 8480-6 BMI: 25.1 Code : 45798-9 Heart Rate 1 : 72 bpm Height: [...] Present Encounters Encounter Performer Location Codes Date ([id number]) [id number] EST. PATIENT, LEVEL IV Diagnosis: Essential (primary) hypertension[ICD10: I10] Diagnosis: Type 2 diabetes mellitus without complications[ICD10: E11.9] Diagnosis: Muscle weakness (generalized)[ICD10: M62.81] Maria Luisa Echeverria MD, [facility] CPT-4: 46158 05/17/2018 ([id number]) 63777 EST. PATIENT, LEVEL III Diagnosis: Essential (primary) hypertension[ICD10: I10] Diagnosis: Type 2 diabetes mellitus without complications[ICD10: E11.9] Diagnosis: Encounter for immunization[ICD10: Z23] Diagnosis: Muscle weakness (generalized)[ICD10: M62.81] Maria Luisa Echeverria MD, [facility] CPT-4: 04519 01/12/2018 ([id number]) 45529 EST. PATIENT, LEVEL IV Diagnosis: Essential (primary) hypertension[ICD10: I10] Diagnosis: Type 2 diabetes mellitus without complications[ICD10: E11.9] Diagnosis: Encounter for immunization[ICD10: Z23] Diagnosis: Muscle weakness (generalized)[ICD10: M62.81] Maria Luisa Echeverria MD, [facility] CPT-4: 17340 12/29/2017 ([id number]) 30550 EST. PATIENT, LEVEL IV Diagnosis: Essential (primary) hypertension[ICD10: I10] Diagnosis: Muscle weakness (generalized)[ICD10: M62.81] Diagnosis: 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 artery[ICD10: I66.01 ] Maria Luisa Echeverria MD, [facility] CPT-4: 77759 08/25/2017 ([id number]) 56467 EST. PATIENT, LEVEL IV Diagnosis: Essential (primary) hypertension[ICD10: I10] Diagnosis: 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 artery[ICD10: I66.01 ] Maria Luisa Echeverria MD, [facility] CPT-4: 65871 07/21/2017 ([id number]) 38319 EST. PATIENT, LEVEL IV Diagnosis: Essential (primary) hypertension[ICD10: I10] Diagnosis: Type 2 diabetes mellitus without complications[ICD10: E11.9] Diagnosis: 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 artery[ICD10: I66.01 ] Maria Luisa Echeverria MD, [facility] CPT-4: 67238 06/17/2017 ([id number]) 04769 EST. PATIENT, LEVEL IV Diagnosis: Essential (primary) hypertension[ICD10: I10] Diagnosis: Muscle weakness (generalized)[ICD10: M62.81] Diagnosis: Mixed hyperlipidemia[ICD10: E78.2] Maria Luisa Echeverria MD, [facility] CPT-4: 48258 02/17/2017 ([id number]) 84605 EST. PATIENT, LEVEL III Diagnosis: Essential (primary) hypertension[ICD10: I10] Diagnosis: Muscle weakness (generalized)[ICD10: M62.81] Diamond Echeverria MD, [facility] CPT-4: 95065 01/02/2017 ([id number]) 08476 EST. PATIENT, LEVEL IV Diagnosis: Muscle weakness (generalized)[ICD10: M62.81] Diagnosis: Cerebral infarction, unspecified[ICD10: I63.9] Diagnosis: Essential (primary) hypertension[ICD10: I10] Diagnosis: Gastro-esophageal reflux disease without esophagitis[ICD10: K21.9] Diagnosis: Allergic rhinitis due to pollen[ICD10: J30.1] Diamond Echeverria MD, [facility] CPT-4: 71068 12/05/2016 ([id number]) 14382 EST. PATIENT, LEVEL IV Diagnosis: Essential (primary) hypertension[ICD10: I10] Diagnosis: Type 2 diabetes mellitus without complications[ICD10: E11.9] Maria Luisa Echeverria MD, [facility] CPT-4: 37434 08/19/2016 82619 EST. PATIENT, LEVEL IV Diagnosis: Essential (primary) hypertension[ICD10: I10] Diagnosis: Type 2 diabetes mellitus without complications[ICD10: E11.9] Diagnosis: Mixed hyperlipidemia[ICD10: E78.2] Ashley Echeverria MD, [facility] CPT-4: 38815 05/20/2016 ([id number]) 68342 EST. PATIENT, LEVEL IV Diagnosis: Type 2 diabetes mellitus without complications[ICD10: E11.9] Diagnosis: Family history of other endocrine, nutritional and metabolic diseases [ICD10: Z83.49] Diagnosis: Other fatigue[ICD10: R53.83] Diagnosis: Abnormal weight gain[ICD10: R63.5] Diagnosis: Actinic keratosis[ICD10: L57.0] Maria Luisa Echeverria MD, [facility] CPT- 4: 75161 01/23/2016 ([id number]) 52365 EST. PATIENT, LEVEL IV Diagnosis: Family history of other endocrine, nutritional and metabolic diseases [ICD10: Z83.49] Diagnosis: Other fatigue[ICD10: R53.83] Diagnosis: Abnormal weight gain[ICD10: R63.5] Diagnosis: Actinic keratosis[ICD10: L57.0] Diagnosis: Type 2 diabetes mellitus without complications[ICD10: E11.9] Maria Luisa Echeverria MD, [facility] CPT-4: 58054 09/26/2015 ([id number]) 34187 EST. PATIENT, LEVEL IV Diagnosis: Essential (primary) hypertension[ICD10: I10] Diagnosis: Type 2 diabetes mellitus without complications[ICD10: E11.9] Diagnosis: Other depressive episodes[ICD10: F32.8] Diagnosis: Vitamin D deficiency, unspecified[ICD10: E55.9] Maria Luisa Echeverria MD, [facility] CPT-4: 76470 08/23/2015 [id number]) [id number] EST. PATIENT, LEVEL IV Diagnosis: Essential (primary) hypertension[ICD10: I10] Diagnosis: Benign paroxysmal vertigo, unspecified ear[ICD10: H81.10] Diagnosis: Type 2 diabetes mellitus without complications[ICD10: E11.9] Maria Luisa Echeverria MD, [facility] CPT-4: 56277 04/17/2015 ([id number]) 38487 EST. PATIENT, LEVEL III Diagnosis: Essential (primary) hypertension[ICD10: I10] Diagnosis: Benign paroxysmal vertigo, unspecified ear[ICD10: H81.10] Diamond Echeverria MD , [facility] CPT-4: 83370 03/15/2015 [id number]) 37227 EST. PATIENT, LEVEL III Diagnosis: Essential (primary) hypertension[ICD10: I10] Diagnosis: Edema, unspecified[ICD10: R60.9] Diamond Echeverria MD, [facility] CPT-4: 43132 02/06/2015 [id number]) 64751 EST. PATIENT, LEVEL IV Diagnosis: ESSENTIAL HYPERTENSION[ICD9: 401.9] Diagnosis: HYPERLIPIDEMIA[ICD9: 272.4] Diagnosis: DEPRESSIVE DISORDER NEC[ICD9: 311] Diagnosis: ESOPHAGEAL REFLUX[ICD9: 530.81] Diagnosis: RESTLESS LEGS SYNDROME[ICD9: 333.94] Maria Luisa Echeverria MD, [facility] CPT-4: 76285 12/13/2014 ([id number]) OFFICE VISIT, NEW - LEVEL 4 Diagnosis: ESSENTIAL HYPERTENSION[ICD9: 401.9] Diagnosis: HYPERLIPIDEMIA[ICD9: 272.4] Diagnosis: DEPRESSIVE DISORDER NEC[ICD9: 311] Diagnosis: ESOPHAGEAL REFLUX[ICD9: 530.81] Diagnosis: RESTLESS LEGS SYNDROME[ICD9: 333.94] Maria Luisa Echeverria MD, [facility] CPT-4: 40019 10/11/2014 Plan of Care Planned Activity Notes [...] to get you in with An[facility] 05/17/2018 Patient Education: Patient Medication Summary Completed [...] home. 01/12/2018 Appointment: Maria Luisa Echeverria WPtel: [address] [place], [place] [phone] (15 min) Moderate 01/12/2018 Patient Education: Patient [...] she stopped therapy when she left the intermediate. She states that she does struggle with her strength. She states that she would rather do activities on her own rather than going to physical therapy. high dose flu shot today due to autoimmune deficiency 12/29/2017 Appointment: Maria Luisa Echeverria [facility]Ptel[facility] (15 min) Moderate 12/29/2017 Patient Education: Patient [...] Middle Cerebral artery stroke - appt with [facility] neurology with Dr. Macario at Neurology. -pt has paperwork that she has to send in for the neurology department she has her appt on September 16. Gait instability -she has finished therapy at this point in time - she reports that she stopped therapy when she left the intermediate. She states that she does struggle with her strength. She states that she would rather do activities on her own rather than going to physical therapy. 08/25/2017 Appointment: Maria Luisa Echeverria WPtel: [facility] [place] (15 min) Moderate 08/25/2017 Patient Education: Patient [...] therapy. 07/21/2017 Appointment: [facility] [phone] [facility] [place] (15 min) Moderate 07/21/2017 Patient Education: Patient Medication Summary Completed 07/21/2017 Visit Plan: Right Middle Cerebral artery stroke - appt with neurology with Dr. Macario at Neurology. Gait instability - appt with outpt physical therapy Hypertension - stable - continue with current treatment - monitor symptoms DM - diet controlled - 06/17/2017 Appointment: Maria Luisa Echeverria WPtel: [facility] [place] (15 min) Moderate 06/17/2017 Patient Education: Patient [...] 02/17/2017 Appointment: Maria Lu[facility]ver[facility] [phone] [facility] [place] (15 min) Moderate 02/17/2017 Patient Education: Patient Medication Summary Completed 02/17/2017 Care Plan: Referral Order SNOMED-CT : [id number] Pending 02/17/2017 Visit Plan: Hypertension - well controlled - continue with current medications, continue with no added salt diet. Pt has been encouraged to exercise daily. The pt has been advised to call the office if there are any acute concerns about change in blood pressure readings at home. Weakness-recent stroke-strength improving-no changes 01/02/2017 [facility]ment[phone] [phone] (30 min) Complex 01/02/2017 Patient Education: Patient Medication Summary Completed 01/02/2017 Visit Plan: Hypertension - well controlled - continue with current medications, continue with no added salt diet. Pt has been encouraged to exercise daily. The pt has been advised to call the office if there are any acute concerns about change in blood pressure readings at home. Generalized weakness-gait xdwcevxqefu-DKC-wtgthhhf PT-patient to use 4 wheeled walker GERD- dysphagia-refer for speech eval-start pepcid twice daily Allergies-chronic- restart allergy pill as directed 12/05/2016 Appointment: Diamond Sawyer WPtel: [phone] [phone] (15 min) Moderate 12/05/2016 Patient Education: [...] surrogate. 08/21/2016 Appointment: Ashley Wooten WPtel: [phone] [facility] [facility] - Annual Wellness Visit 08/21/2016 Patient Education: [...] controlled. 08/19/2016 Appointment: Maria Luisa Echeverria [facility] [phone] [facility] [place] (15 min) Moderate 08/19/2016 Patient Education: Patient [...] medications. 05/20/2016 App[facility]ment[phone] [facility] (15 min) Moderate 05/20/2016 Patient Education: [...] TODAY 01/23/2016 Appointment: Maria Luisa Echeverria [facility] [phone] [facility] [place] (15 min) Moderate 01/23/2016 Patient Education: [...] home. 09/26/2015 Appointment: Maria Luisa Echeverria WPtel: [facility] (15 min) Moderate 09/26/2015 Patient [...] Completed 08/23/2015 Appointment: Maria Luisa Echeverria WPtel: [facility] [place] (15 min) Moderate 08/22/2015 Appointment: Maria Luisa Echeverria WPtel: [facility] [place] (15 min) Moderate 08/15/2015 Visit Plan: Medicare [...] paperwork for health care surrogate. 07/19/2015 Appointment: [facility] - Annual Wellness Visit [...] week. 04/17/2015 Appointment: Maria Luisa Echeverria WPtel: [facility] (15 min) Moderate 04/17/2015 Patient Education: Patient [...] Maria Luisa [facility]cheverria [facility] [phone] [facility] [place] (15 min) Moderate 12/13/2014 Patient Education: Patient [...] medications. 10/11/2014 Appointment: Maria Luisa Echeverria [facility] [phone] [facility] [place] [place] ([place] New Patient 10/11/2014 Appointment: Maria Luisa Echeverria [facility] [phone] [facility] [place] [place] (15 min) Moderate 10/11/2014 Patient Education: [...] you in with An[facility] . Hypertension - improved control - continue [...] she stopped therapy when she left the intermediate. She states that she does struggle with her strength. She states that she would rather do activities on her own rather than going to physical therapy. change the time of the losartan to [...] pressure readings at home. FLU SHOT TODAY . Right Middle Cerebral artery stroke - [...] blood pressure readings at home. Generalized weakness-gait zparhxuvwic-JDK-bzydzwda PT-patient to use 4 wheeled walker ARPF-ebeyevoec-alsdw for speech eval-start pepcid twice daily Buqrnkpnn-zpvccdt-zetnzjt allergy pill as directed stay off of the amlodipine and start [...] she stopped therapy when she left the intermediate. She states that she does struggle with [...] the office for further instructions/medication interventions. . Diabetes Mellitus - controlled - per [...] continue with supplementation as previously directed. . Medicare Exam - today we discussed [...]
--- OUTSIDE RECORDS SUMMARY | 2018-07-02 14:31 | XMS REPORT | CCD ---
Author Author [facility] Organization [facility] Address [address] [place] [address] Phone Care Team Providers Care Tamping Machine [employer] Forms Name Role Phone PP Unavailable CCM Unavailable Summary Purpose Interface Exchange Insurance Providers Payer name Policy type / Coverage type Covered alliance party ID Effective Begin Date Effective End Date WPS Medicare Part B Medicare Part B [id number] 2017 Unknown [facility] Medicare Part B [id number] Unknown Family history Mother Diagnosis Age At [...] Unknown 3 10/11/[address]: 056167947 Never smoker 10/11/[address]: 584411776 Never drinks alcohol 10/11/2014 Allergies, Adverse Reactions, [...] Fill Instructions Coreg 3.125 mg tablet RxNorm: 000512 1 Tablet(s) QAM 05/11/2018 10/07/2018 Active Lomotil 2.5 mg-0.025 mg tablet RxNorm: 8604145 1 Tablet(s) PO daily as needed 05/11/2018 11/06/2018 Active Plavix 75 mg tablet RxNorm: 431912 TAKE ONE TABLET BY MOUTH DAILY 04/26/2018 12/21/2018 Active Request already responded to by other means (e.g. phone or fax) clonazepam 0.5 mg tablet RxNorm: 864267 Tablet(s) TAKE 2 TABLETS BY MOUTH AT BEDTIME NEEDED 04/19/2018 07/17/2018 Active Plavix 75 mg tablet RxNorm: 423018 Tablet(s) TAKE ONE TABLET BY MOUTH DAILY 04/19/2018 04/25/2018 Inactive Coreg 3.125 mg tablet RxNorm: 221468 TAKE ONE-HALF TABLET BY MOUTH TWICE A DAY 04/19/2018 05/10/2018 Inactive Escapeer.comTouch Ultra Test strips RxNorm: TEST 1 TIME DAILY 201804/08/2019 Active Benicar 40 mg tablet RxNorm: 461307 1 Tablet(s) PO daily 201707/23/2018 Active This replaces losartan Benicar 40 mg tablet RxNorm: 935368 1 Tablet(s) PO daily 201702/23/2018 Inactive This replaces losartan clonazepam 0.5 mg tablet RxNorm: 762767 Tablet(s) TAKE 2 TABLETS BY MOUTH AT BEDTIME NEEDED 01/20/2018 04/18/2018 Inactive Coreg 3.125 mg tablet RxNorm: 760810 1/2 Tablet(s) PO BID 201704/18/2018 Inactive Mirapex 0.5 mg tablet RxNorm: 209874 TAKE ONE TABLET BY MOUTH EVERY NIGHT AT BEDTIME 12/21/2017 05/19/2018 Active folic acid 1 mg tablet RxNorm: 601906 TAKE ONE TABLET BY MOUTH DAILY 12/11/2017 12/05/2018 Active Plavix 75 mg tablet RxNorm: 825095 TAKE ONE TABLET BY MOUTH DAILY 12/11/2017 04/18/2018 Inactive Aspirin Low Dose 81 mg tablet,delayed release RxNorm: 416855 TAKE ONE TABLET BY MOUTH DAILY 11/24/2017 12/28/2017 Inactive Request already responded to by other means (e.g. phone or fax) Aspirin Low Dose 81 mg tablet,delayed release RxNorm: 726601 1 Tablet(s) PO daily 11/18/2017 11/17/2017 Inactive Aspirin Low Dose 81 mg tablet,delayed release RxNorm: 471289 1 Tablet(s) PO daily 11/18/2017 11/23/2017 Inactive clonazepam 0.5 mg tablet RxNorm: 773586 Tablet(s) TAKE 2 TABLETS BY MOUTH AT BEDTIME NEEDED 10/23/2017 04/18/2018 Inactive Lomotil 2.5 mg-0.025 mg tablet RxNorm: 7399826 1 Tablet(s) PO daily as needed 09/28/2017 03/25/2018 Inactive pravastatin 80 mg tablet RxNorm: 060589 TAKE ONE TABLET BY MOUTH EVERY EVENING 08/19/2017 11/11/2018 Active clonazepam 0.5 mg tablet RxNorm: 363931 Tablet(s) TAKE 2 TABLETS BY MOUTH AT BEDTIME NEEDED 07/24/2017 10/20/2017 Inactive Mirapex 0.5 mg tablet RxNorm: 573889 TAKE ONE TABLET BY MOUTH EVERY NIGHT AT BEDTIME 07/23/2017 12/19/2017 Inactive Vitamin D2 50,000 unit capsule RxNorm: 959625 1 Capsule(s) PO QW 07/22/2017 07/21/2017 Inactive Vitamin D2 50,000 unit capsule RxNorm: 292587 1 Capsule(s) PO QW 07/22/2017 10/19/2017 Inactive amlodipine 5 mg tablet RxNorm: 626743 1 Tablet(s) PO daily 01/201812/28/2017 Inactive Refill not appropriate Prozac 40 mg capsule RxNorm: 742566 TAKE ONE CAPSULE BY MOUTH DAILY 06/24/2017 06/18/2018 Active Plavix 75 mg tablet RxNorm: 130455 TAKE ONE TABLET BY MOUTH DAILY 06/18/2017 12/10/2017 Inactive Lomotil 2.5 mg-0.025 mg tablet RxNorm: 8946800 1 Tablet(s) PO daily as needed 06/04/2017 11/17/2017 Inactive losartan 100 mg tablet RxNorm: 023290 TAKE ONE TABLET BY MOUTH DAILY 05/11/2017 02/23/2018 Inactive OneTouch Ultra Test strips RxNorm: TEST 1 TIME DAILY 201704/13/2018 Inactive clonazepam 0.5 mg tablet RxNorm: 659884 Tablet(s) TAKE 2 TABLETS BY MOUTH AT BEDTIME NEEDED 04/14/2017 11/17/2017 Inactive Lomotil 2.5 mg-0.025 mg tablet RxNorm: 6068503 1 Tablet(s) PO daily as needed 03/17/2017 06/03/2017 Inactive Mirapex 0.5 mg tablet RxNorm: 802529 TAKE ONE TABLET BY MOUTH EVERY NIGHT AT BEDTIME 01/19/2017 07/17/2017 Inactive clonazepam 0.5 mg tablet RxNorm: 858842 Tablet(s) TAKE 2 TABLETS BY MOUTH AT BEDTIME NEEDED 01/12/2017 04/09/2017 Inactive tramadol 50 mg tablet RxNorm: 898356 1-2 Tablet(s) PO Q6 PRN pain 12/31/2016 08/24/2017 Inactive folic acid 1 mg tablet RxNorm: 862524 TAKE ONE TABLET BY MOUTH DAILY 12/24/2016 12/10/2017 Inactive tramadol 50 mg tablet RxNorm: 640409 1-2 Tablet(s) PO Q6 PRN pain 12/12/2016 12/16/2016 Inactive tramadol 50 mg tablet RxNorm: 772869 1-2 Tablet(s) PO Q6 PRN pain 12/12/2016 12/11/2016 Inactive clonazepam 0.5 mg tablet RxNorm: 568255 Tablet(s) TAKE 2 TABLETS BY MOUTH AT BEDTIME NEEDED 12/09/2016 01/11/2017 Inactive pravastatin 80 mg tablet RxNorm: 987044 TAKE ONE TABLET BY MOUTH EVERY EVENING 11/11/2016 08/07/2017 Inactive Mirapex 0.5 mg tablet RxNorm: 714721 TAKE ONE TABLET BY MOUTH EVERY NIGHT AT BEDTIME 10/29/2016 01/18/2017 Inactive Prozac 40 mg capsule RxNorm: 138852 TAKE ONE CAPSULE BY MOUTH DAILY 10/29/2016 06/23/2017 Inactive spironolactone 25 mg tablet RxNorm: 958985 TAKE ONE TABLET BY MOUTH DAILY 10/29/2016 12/04/2016 Inactive clonazepam 0.5 mg tablet RxNorm: 256097 Tablet(s) TAKE 2 TABLETS BY MOUTH AT BEDTIME NEEDED 09/24/2016 11/22/2016 Inactive Lomotil 2.5 mg-0.025 mg tablet RxNorm: 3283672 1 Tablet(s) PO daily as needed 07/30/2016 01/23/2017 Inactive sucralfate 1 gram tablet RxNorm: 056608 TAKE ONE-HALF TABLET BY MOUTH TWO TIMES A DAY ONE HOUR BEFORE MEALS 07/28/201608/24 Inactive losartan 100 mg tablet RxNorm: 836615 TAKE ONE TABLET BY MOUTH DAILY 07/28/2016 01/23/2017 Inactive Lialda 1.2 gram tablet,delayed release RxNorm: 569754 3 Tablet(s) PO daily 07/02/2016 08/24/2017 Inactive Mirapex 0.5 mg tablet RxNorm: 357692 TAKE ONE TABLET BY MOUTH EVERY NIGHT AT BEDTIME 06/27/2016 10/24/2016 Inactive clonazepam 0.5 mg tablet RxNorm: 449042 Tablet(s) TAKE 2 TABLETS BY MOUTH AT BEDTIME NEEDED 06/27/2016 01/11/2017 Inactive clonazepam 0.5 mg tablet RxNorm: 19740520 Tablet(s) TAKE 2 TABLETS BY MOUTH AT BEDTIME NEEDED 04/29/2016 06/25/2016 Inactive folic acid 1 mg tablet RxNorm: 755510 TAKE ONE TABLET BY MOUTH DAILY 02/28/2016 11/23/2016 Inactive clonazepam 0.5 mg tablet RxNorm: 19740520 Tablet(s) TAKE 2 TABLETS BY MOUTH AT BEDTIME NEEDED 02/26/2016 01/11/2017 Inactive OneTouch Ultra Test strips RxNorm: TEST ONCE DAILY 02/25/2016 08/22/2016 Inactive sucralfate 1 gram tablet RxNorm: 550985 TAKE ONE-HALF TABLET BY MOUTH TWO TIMES A DAY ONE HOUR BEFORE MEALS 01/28/201607/25 Inactive Mirapex 0.5 mg tablet RxNorm: 705902 TAKE ONE TABLET BY MOUTH EVERY NIGHT AT BEDTIME 01/28/2016 06/25/2016 Inactive spironolactone 25 mg tablet RxNorm: 956902 TAKE ONE TABLET BY MOUTH DAILY 01/28/2016 10/23/2016 Inactive Lomotil 2.5 mg-0.025 mg tablet RxNorm: 4158489 1 Tablet(s) PO daily as needed 12/05/2015 01/11/2017 Inactive Klor-Con M20 mEq tablet,extended release RxNorm: 708253 TAKE ONE TABLET BY MOUTH THREE TIMES A DAY 12/05/2015 08/24/2017 Inactive losartan 100 mg tablet RxNorm: 242443 TAKE ONE TABLET BY MOUTH DAILY 11/22/2015 07/27/2016 Inactive amlodipine 5 mg tablet RxNorm: 064659 TAKE ONE TABLET BY MOUTH DAILY 11/13/2015 11/06/2016 Inactive Refill not appropriate clonazepam 0.5 mg tablet RxNorm: 954037 Tablet(s) TAKE 2 TABLETS BY MOUTH AT BEDTIME NEEDED 11/08/2015 01/11/2017 Inactive clonazepam 0.5 mg tablet RxNorm: 19740520 Tablet(s) TAKE 2 TABLETS BY MOUTH AT BEDTIME NEEDED 11/02/2015 01/29/2016 Inactive Prozac 40 mg capsule RxNorm: 361514 1 Capsule(s) PO daily 10/3010/24/2016 Inactive pravastatin 80 mg tablet RxNorm: 494758 1 Tablet(s) PO QPM 10/23/2016 Inactive OneTouch Ultra Test strips RxNorm: TEST ONCE DAILY 10/30/2015 01/27/2016 Inactive Imuran 50 mg tablet RxNorm: 628955 1.5 (75) Tablet(s) PO daily 08/17/2015 08/10/2016 Inactive K75.4 clonazepam 0.5 mg tablet RxNorm: 278024 Tablet(s) TAKE 2 TABLETS BY MOUTH AT BEDTIME NEEDED 08/10/2015 01/11/2017 Inactive Imuran 50 mg tablet RxNorm: 989551 1.5 (75) Tablet(s) PO daily 08/10/2015 08/16/2015 Inactive OneTouch Ultra Test strips RxNorm: TEST ONCE DAILY 08/09/2015 10/29/2015 Inactive Vitamin D2 50,000 unit capsule RxNorm: 879475 1 Capsule(s) PO QW 08/07/2015 01/11/2017 Inactive Mirapex 0.5 mg tablet RxNorm: 279887 Tablet(s) TAKE ONE TABLET BY MOUTH EVERY NIGHT AT BEDTIME 07/19/2015 01/14/2016 Inactive Lomotil 2.5 mg-0.025 mg tablet RxNorm: 7387914 1 Tablet(s) PO daily as needed 06/06/2015 01/11/2017 Inactive clonazepam 0.5 mg tablet RxNorm: 007489 Tablet(s) TAKE 2 TABLETS BY MOUTH AT BEDTIME NEEDED 05/10/2015 08/06/2015 Inactive sucralfate 1 gram tablet RxNorm: 961618 TAKE ONE-HALF TABLET BY MOUTH TWO TIMES A DAY ONE HOUR BEFORE MEALS 05/04/201501/26 Inactive meclizine 25 mg tablet RxNorm: 164277 1/2-1 Tablet(s) PO Q6 PRN 03/15/2015 08/24/2017 Inactive spironolactone 25 mg tablet RxNorm: 867719 1 Tablet(s) PO daily 03/14/2015 01/27/2016 Inactive spironolactone 25 mg tablet RxNorm: 431084 1 Tablet(s) PO daily 03/14/2015 03/13/2015 Inactive clonazepam 0.5 mg tablet RxNorm: 801431 TAKE 2 TABLETS BY MOUTH AT BEDTIME NEEDED 02/08/2015 05/02/2015 Inactive folic acid 1 mg tablet RxNorm: 337415 1 Tablet(s) PO daily 02/01/2016 Inactive clonazepam 0.5 mg tablet RxNorm: 486313 TAKE 2 TABLETS BY MOUTH AT BEDTIME NEEDED 02/06/2015 02/08/2015 Inactive amlodipine 10 mg tablet RxNorm: 805690 1/2 Tablet(s) PO daily 02/06/2015 07/18/2015 Inactive this replaces her 5mg pill OneTouch Ultra Test strips RxNorm: TEST ONCE DAILY 01/30/2015 07/28/2015 Inactive Mirapex 0.5 mg tablet RxNorm: 783704 TAKE ONE TABLET BY MOUTH EVERY NIGHT AT BEDTIME 01/29/2015 07/18/2015 Inactive sucralfate 1 gram tablet RxNorm: 507522 TAKE ONE-HALF TABLET BY MOUTH TWO TIMES A DAY ONE HOUR BEFORE MEALS 01/11/201504/10 Inactive OneTouch Ultra Test strips RxNorm: 1 Miscellaneous daily 11/1401/29/2015 Inactive amlodipine 10 mg tablet RxNorm: 473695 1 Tablet(s) PO daily 02/05/2015 Inactive this replaces her 5mg pill clonazepam 0.5 mg tablet RxNorm: 546734 2 Tablet(s) PO QHS 10/201402/05/2015 Inactive sucralfate 1 gram tablet RxNorm: 154219 1/2 Tablet(s) PO BID 1 hour before meal 10/11/2014 01/08/2015 Inactive losartan 100 mg tablet RxNorm: 218746 1 Tablet(s) PO daily 04/201410/05/2015 Inactive amlodipine 5 mg tablet RxNorm: 524943 1 Tablet(s) PO daily 04/201410/30/2014 Inactive Imuran 50 mg tablet RxNorm: 228513 1.5 (75) Tablet(s) PO daily 10/11/2014 08/09/2015 Inactive Lomotil 2.5 mg-0.025 mg tablet RxNorm: 4782446 1 Tablet(s) PO daily as needed 10/11/2014 06/05/2015 Inactive pravastatin 80 mg tablet RxNorm: 590434 1 Tablet(s) PO QPM 04/201410/05/2015 Inactive Klor-Con M20 mEq tablet,extended release RxNorm: 616207 1 Tablet(s) PO TID 10/11/2014 10/05/2015 Inactive Mirapex 0.5 mg tablet RxNorm: 676711 1 Tablet(s) PO QHS 201401/28/2015 Inactive Prozac 40 mg capsule RxNorm: 254876 1 Capsule(s) PO daily 10/1110/05/2015 Inactive Colazal 750 mg capsule RxNorm: 992458 1 Capsule(s) PO TID No Start Date Active Combigan 0.2 %-0.5 % eye drops RxNorm: 515604 1 Drop(s) ophthalmic (eye) BID No Start Date Active Lumigan 0.01 % eye drops RxNorm: 3694927 1 Drop(s) OPH QHS No Start Date Active Prolia 60 mg/mL subcutaneous syringe RxNorm: 810839 1 Milliliter(s) SQ every 6 months No Start Date Active Vitamin D2 50,000 unit capsule RxNorm: 525817 1 Capsule(s) PO QW No Start Date 08/06/2015 Inactive OneTouch Ultra Test strips RxNorm: 1 Miscellaneous daily No Start Date 11/13/2014 Inactive Plavix 75 mg tablet RxNorm: 279071 1 Tablet(s) PO daily No Start Date 06/17/2017 Inactive Lomotil 2.5 mg-0.025 mg tablet RxNorm: 8907862 1 Tablet(s) PO daily as needed No Start Date 10/10/2014 Inactive folic acid 1 mg tablet RxNorm: 813102 1 Tablet(s) PO daily No Start Date 02/06/2015 Inactive amlodipine 5 mg tablet RxNorm: 392581 1 Tablet(s) PO daily No Start Date 10/10/2014 Inactive Imuran 50 mg tablet RxNorm: 496759 1 1/2 (75) Tablet(s) PO daily No Start Date 10/10/2014 Inactive Boniva 3 mg/3 mL intravenous syringe RxNorm: 672840 Milliliter(s) IV No Start Date 07/18/2015 Inactive potassium chloride 20 meq RxNorm: 812219 1 PO TID No Start Date 10/10/2014 Inactive sucralfate 1 gram tablet RxNorm: 693611 1/2 Tablet(s) PO BID 1 hour before meal No Start Date 10/10/2014 Inactive losartan 100 mg tablet RxNorm: 869772 1 Tablet(s) PO daily No Start Date 10/10/2014 Inactive Vitamin D3 2,000 unit tablet RxNorm: 390348 1 Tablet(s) PO daily No Start Date 08/23/2015 Inactive Calcium + D oral RxNorm: 642218 oral No Start Date 08/24/2017 Inactive Prozac 40 mg capsule RxNorm: 467980 1 Capsule(s) PO daily No Start Date 10/10/2014 Inactive timolol 0.5 % eye drops RxNorm: 175393 1 Drop(s) OPH BID No Start Date 12/28/2017 Inactive clonazepam 0.5 mg tablet RxNorm: 195059 2 Tablet(s) PO QHS No Start Date 10/16/2014 Inactive amlodipine 5 mg tablet RxNorm: 438922 1 Tablet(s) PO daily No Start Date 08/22/2015 Inactive pravastatin 80 mg tablet RxNorm: 624868 1 Tablet(s) PO QPM No Start Date 10/10/2014 Inactive Lialda 1.2 gram tablet,delayed release RxNorm: 295817 3 Tablet(s) PO daily No Start Date 07/01/2016 Inactive Alavert 10 mg disintegrating tablet RxNorm: 105611 1 Tablet(s) PO daily as needed No [...] Code Item Item Code Result Date %Hba1C Jxb351 % HbA1c 37649-6 6.3 % 05/10/2018 %Hba1C Dwk221 Gluc Ave 134 mg/dL 05/10/2018 Hepatic Ycz242 ALBUMIN 4.0 g/dL 05/10/2018 Hepatic Twx877 TPRO 6.6 g/dL 05/10/2018 Hepatic Dxi319 GLOB 2.6 g/dL 05/10/2018 Hepatic Eok011 A/G Ratio 1.5 Ratio 05/10/2018 Hepatic Nrr059 ALK PHOS 39 U/L 05/10/2018 Hepatic Bil059 ALT(SGPT) 19 U/L 05/10/2018 Hepatic Atf432 AST(SGOT) 28 U/L 05/10/2018 Hepatic Dmr853 BILI T 0.3 mg/dL 05/10/2018 Hepatic Qek563 BILI D 0.1 mg/dL 05/10/2018 Hepatic Tma671 BILI I 0.2 mg/dL 05/10/2018 C-Reactive Protein [...] 31.7 pg 04/23/2018 Cbc With Differential Ord2 Bryan% 10.1 % 04/23/2018 Cbc With Differential Ord2 [...] 1.17 K/ul 04/23/2018 Cbc With Differential Ord2 Bryan ABS# 0.6 K/ul 04/23/2018 Cbc With Differential Ord2 Eos ABS# 0.1 K/ul 04/23/2018 Cbc With Differential Ord2 Baso ABS# 0.0 K/ul 04/23/2018 Sed Rate Ord21 ESR 19 mm/hr 04/23/2018 Comp Metabolic Vwi966 NA 134 mEq/L 04/23/2018 Comp Metabolic Qnw995 K 4.6 mEq/L 04/23/2018 Comp Metabolic Cpe359 CL 103 mEq/L 04/23/2018 Comp Metabolic Loq181 CO2 22.0 mEq/L 04/23/2018 Comp Metabolic Tom913 ANION GAP 14 04/23/2018 Comp Metabolic Xvv499 GLUCOSE 133 mg/dL 04/23/2018 Comp Metabolic Znn646 Creat 0.9 mg/dL 04/23/2018 Comp Metabolic Pmo025 eGFR 62 ml/min/1.73m2 04/23/2018 Comp Metabolic Ppa792 BUN 11 mg/dL 04/23/2018 Comp Metabolic She044 B/C Ratio 11.7 Ratio 04/23/2018 Comp Metabolic Jwz889 CALCIUM 9.0 mg/dL 04/23/2018 Comp Metabolic Qdv721 ALK PHOS 42 U/L 04/23/2018 Comp Metabolic Gia483 AST(SGOT) 44 U/L 04/23/2018 Comp Metabolic Ueh290 ALT(SGPT) 25 U/L 04/23/2018 Comp Metabolic Xoh862 BILI T 0.4 mg/dL 04/23/2018 Comp Metabolic Dsz651 ALBUMIN 4.2 g/dL 04/23/2018 Comp Metabolic Hzr249 TPRO 6.6 g/dL 04/23/2018 Comp Metabolic Tvz091 GLOB 2.4 g/dL 04/23/2018 Comp Metabolic Bud550 A/G Ratio 1.7 Ratio 04/23/2018 Comp Metabolic Lqv327 Osmo 270 mOsmo 04/23/2018 Vitamin D 25 Oh Ctm3091 VITAMIN D, 25 HYDROXY 28.88 ng/mL C-Reactive [...] 31.9 pg 02/23/2018 Cbc With Differential Ord2 Bryan% 8.8 % 02/23/2018 Cbc With Differential Ord2 [...] 1.24 K/ul 02/23/2018 Cbc With Differential Ord2 Bryan ABS# 0.5 K/ul 02/23/2018 Cbc With Differential Ord2 Eos ABS# 0.1 K/ul 02/23/2018 Cbc With Differential Ord2 Baso ABS# 0.0 K/ul 02/23/2018 Comp Metabolic Kyk384 NA 136 mEq/L 02/23/2018 Comp Metabolic Klk424 K 4.0 mEq/L 02/23/2018 Comp Metabolic Zeg398 CL 105 mEq/L 02/23/2018 Comp Metabolic Sjr912 CO2 20.0 mEq/L 02/23/2018 Comp Metabolic Ian856 ANION GAP 15 02/23/2018 Comp Metabolic Yco295 GLUCOSE 129 mg/dL 02/23/2018 Comp Metabolic Bca565 Creat 0.9 mg/dL 02/23/2018 Comp Metabolic Grd722 eGFR 66 ml/min/1.73m2 02/23/2018 Comp Metabolic Yrj292 BUN 11 mg/dL 02/23/2018 Comp Metabolic Bju593 B/C Ratio 12.2 Ratio 02/23/2018 Comp Metabolic Hcz633 CALCIUM 8.6 mg/dL 02/23/2018 Comp Metabolic Ctf026 ALK PHOS 43 U/L 02/23/2018 Comp Metabolic Ojo989 AST(SGOT) 33 U/L 02/23/2018 Comp Metabolic Mrl531 ALT(SGPT) 24 U/L 02/23/2018 Comp Metabolic Zyw968 BILI T 0.5 mg/dL 02/23/2018 Comp Metabolic Zqp473 ALBUMIN 4.2 g/dL 02/23/2018 Comp Metabolic Anw810 TPRO 6.8 g/dL 02/23/2018 Comp Metabolic Asu829 GLOB 2.6 g/dL 02/23/2018 Comp Metabolic Chc936 A/G Ratio 1.6 Ratio 02/23/2018 Comp Metabolic Zfq713 Osmo 273 mOsmo 02/23/2018 Vitamin D 25 Oh Sxr6978 VITAMIN D, 25 HYDROXY 29.25 ng/mL Sed Rate Ord21 ESR 8 mm/hr 02/23/2018 Hepatic Pof381 ALBUMIN 4.3 g/dL 01/05/2018 Hepatic Xqe316 TPRO 6.7 g/dL 01/05/2018 Hepatic Hep066 GLOB 2.5 g/dL 01/05/2018 Hepatic Gou287 A/G Ratio 1.7 Ratio 01/05/2018 Hepatic Gim612 ALK PHOS 53 U/L 01/05/2018 Hepatic Xvm359 ALT(SGPT) 31 U/L 01/05/2018 Hepatic Pur035 AST(SGOT) 44 U/L 01/05/2018 Hepatic Thp839 BILI T 0.4 mg/dL 01/05/2018 Hepatic Rhj782 BILI D 0.1 mg/dL 01/05/2018 Hepatic Ptx177 BILI I 0.3 mg/dL 01/05/2018 Comp Metabolic Apx691 NA 133 mEq/L 10/20/2017 Comp Metabolic Hcq794 K 4.1 mEq/L 10/20/2017 Comp Metabolic Ebe676 CL 103 mEq/L 10/20/2017 Comp Metabolic Hzx166 CO2 23.0 mEq/L 10/20/2017 Comp Metabolic Nfw485 ANION GAP 11 10/20/2017 Comp Metabolic Dxl992 GLUCOSE 118 mg/dL 10/20/2017 Comp Metabolic Lsz532 Creat 0.9 mg/dL 10/20/2017 Comp Metabolic Pbi430 eGFR 64 ml/min/1.73m2 10/20/2017 Comp Metabolic Wmj372 BUN 14 mg/dL 10/20/2017 Comp Metabolic Gja316 B/C Ratio 15.2 Ratio 10/20/2017 Comp Metabolic Lmo522 CALCIUM 8.8 mg/dL 10/20/2017 Comp Metabolic Elb745 ALK PHOS 43 U/L 10/20/2017 Comp Metabolic Zhw739 AST(SGOT) 31 U/L 10/20/2017 Comp Metabolic Hdv141 ALT(SGPT) 25 U/L 10/20/2017 Comp Metabolic Fum858 BILI T 0.4 mg/dL 10/20/2017 Comp Metabolic Awu573 ALBUMIN 4.1 g/dL 10/20/2017 Comp Metabolic Yze715 TPRO 6.6 g/dL 10/20/2017 Comp Metabolic Pql802 GLOB 2.5 g/dL 10/20/2017 Comp Metabolic Dgz756 A/G Ratio 1.6 Ratio 10/20/2017 Comp Metabolic Pgf286 Osmo 268 mOsmo 10/20/2017 Vitamin D 25 Oh Wpa6274 VITAMIN D, 25 HYDROXY 42.65 ng/mL C-Reactive [...] 32.0 pg 10/20/2017 Cbc With Differential Ord2 Bryan% 8.6 % 10/20/2017 Cbc With Differential Ord2 [...] 1.16 K/ul 10/20/2017 Cbc With Differential Ord2 Bryan ABS# 0.5 K/ul 10/20/2017 Cbc With Differential [...] 32.2 pg 07/21/2017 Cbc With Differential Ord2 Bryan% 9.7 % 07/21/2017 Cbc With Differential Ord2 [...] 1.20 K/ul 07/21/2017 Cbc With Differential Ord2 Bryan ABS# 0.6 K/ul 07/21/2017 Cbc With Differential Ord2 Eos ABS# 0.0 K/ul 07/21/2017 Cbc With Differential Ord2 Baso ABS# 0.0 K/ul 07/21/2017 Sed Rate Ord21 ESR 14 mm/hr 07/21/2017 Comp Metabolic Kpz237 NA 135 mEq/L 07/21/2017 Comp Metabolic Vyx619 K 4.5 mEq/L 07/21/2017 Comp Metabolic Ybz253 CL 101 mEq/L 07/21/2017 Comp Metabolic Lbe913 CO2 26.0 mEq/L 07/21/2017 Comp Metabolic Wap122 ANION GAP 13 07/21/2017 Comp Metabolic Mpz367 GLUCOSE 97 mg/dL 07/21/2017 Comp Metabolic Znn211 Creat 0.9 mg/dL 07/21/2017 Comp Metabolic Rvh608 eGFR 66 ml/min/1.73m2 07/21/2017 Comp Metabolic Odk022 BUN 13 mg/dL 07/21/2017 Comp Metabolic Nva429 B/C Ratio 14.4 Ratio 07/21/2017 Comp Metabolic Mmg779 CALCIUM 9.2 mg/dL 07/21/2017 Comp Metabolic Ylt738 ALK PHOS 46 U/L 07/21/2017 Comp Metabolic Mhz061 AST(SGOT) 31 U/L 07/21/2017 Comp Metabolic Zid123 ALT(SGPT) 19 U/L 07/21/2017 Comp Metabolic Lpl507 BILI T 0.5 mg/dL 07/21/2017 Comp Metabolic Wly736 ALBUMIN 4.5 g/dL 07/21/2017 Comp Metabolic Cai547 TPRO 7.2 g/dL 07/21/2017 Comp Metabolic Axt382 GLOB 2.7 g/dL 07/21/2017 Comp Metabolic Pkp114 A/G Ratio 1.7 Ratio 07/21/2017 Comp Metabolic Dxk749 Osmo 270 mOsmo 07/21/2017 Vitamin D 25 Oh Jmq7222 VITAMIN D, 25 HYDROXY 31.39 ng/mL C-Reactive [...] 31.9 pg 04/14/2017 Cbc With Differential Ord2 Bryan% 9.1 % 04/14/2017 Cbc With Differential Ord2 [...] 1.47 K/ul 04/14/2017 Cbc With Differential Ord2 Bryan ABS# 0.7 K/ul 04/14/2017 Cbc With Differential Ord2 Eos ABS# 0.0 K/ul 04/14/2017 Cbc With Differential Ord2 Baso ABS# 0.0 K/ul 04/14/2017 Comp Metabolic Xbb987 NA 136 mEq/L 04/14/2017 Comp Metabolic Uvs353 K 4.4 mEq/L 04/14/2017 Comp Metabolic Uxb229 CL 104 mEq/L 04/14/2017 Comp Metabolic Vra596 CO2 21.0 mEq/L 04/14/2017 Comp Metabolic Cog137 ANION GAP 15 04/14/2017 Comp Metabolic Hds850 GLUCOSE 112 mg/dL 04/14/2017 Comp Metabolic Pmf552 Creat 1.1 mg/dL 04/14/2017 Comp Metabolic Kxu627 eGFR 51 ml/min/1.73m2 04/14/2017 Comp Metabolic Iia754 BUN 16 mg/dL 04/14/2017 Comp Metabolic Vez422 B/C Ratio 14.3 Ratio 04/14/2017 Comp Metabolic Rfu268 CALCIUM 8.9 mg/dL 04/14/2017 Comp Metabolic Yxl449 ALK PHOS 39 U/L 04/14/2017 Comp Metabolic Tqq123 AST(SGOT) 24 U/L 04/14/2017 Comp Metabolic Gya475 ALT(SGPT) 18 U/L 04/14/2017 Comp Metabolic Axf541 BILI T 0.5 mg/dL 04/14/2017 Comp Metabolic Ljy828 ALBUMIN 4.3 g/dL 04/14/2017 Comp Metabolic Pjn289 TPRO 6.8 g/dL 04/14/2017 Comp Metabolic Pfo248 GLOB 2.5 g/dL 04/14/2017 Comp Metabolic Ufz264 A/G Ratio 1.7 Ratio 04/14/2017 Comp Metabolic Cch974 Osmo 274 mOsmo 04/14/2017 Vitamin D 25 Oh Yvu9180 VITAMIN D, 25 HYDROXY 29.88 ng/mL Sed Rate Ord21 ESR 15 mm/hr 04/14/2017 C-Reactive Protein Qnt Crqnt CRP 0.1 mg/dl 04/14/2017 C-Reactive Protein Qnt Crqnt CRP 0.1 mg/dl 02/09/2017 Comp Metabolic Omn393 NA 135 mEq/L 02/09/2017 Comp Metabolic Gcw041 K 4.4 mEq/L 02/09/2017 Comp Metabolic Bhs446 CL 102 mEq/L 02/09/2017 Comp Metabolic Ahn995 CO2 23.0 mEq/L 02/09/2017 Comp Metabolic Avh250 ANION GAP 14 02/09/2017 Comp Metabolic Cby040 GLUCOSE 98 mg/dL 02/09/2017 Comp Metabolic Jfv838 Creat 0.9 mg/dL 02/09/2017 Comp Metabolic Azl008 eGFR 65 ml/min/1.73m2 02/09/2017 Comp Metabolic Jpl356 BUN 18 mg/dL 02/09/2017 Comp Metabolic Bzy208 B/C Ratio 19.8 Ratio 02/09/2017 Comp Metabolic Osm161 CALCIUM 9.2 mg/dL 02/09/2017 Comp Metabolic Hew326 ALK PHOS 42 U/L 02/09/2017 Comp Metabolic Qvn423 AST(SGOT) 24 U/L 02/09/2017 Comp Metabolic Sef600 ALT(SGPT) 16 U/L 02/09/2017 Comp Metabolic Evo443 BILI T 0.4 mg/dL 02/09/2017 Comp Metabolic Kyl103 ALBUMIN 4.4 g/dL 02/09/2017 Comp Metabolic Uiy334 TPRO 7.0 g/dL 02/09/2017 Comp Metabolic Xov943 GLOB 2.6 g/dL 02/09/2017 Comp Metabolic Qfy576 A/G Ratio 1.7 Ratio 02/09/2017 Comp Metabolic Mtl769 Osmo 272 mOsmo 02/09/2017 Cbc With Differential [...] 32.5 pg 02/09/2017 Cbc With Differential Ord2 Bryan% 8.7 % 02/09/2017 Cbc With Differential Ord2 [...] 1.06 K/ul 02/09/2017 Cbc With Differential Ord2 Bryan ABS# 0.6 K/ul 02/09/2017 Cbc With Differential Ord2 Eos ABS# 0.0 K/ul 02/09/2017 Cbc With Differential Ord2 Baso ABS# 0.0 K/ul 02/09/2017 Vitamin D 25 Oh [id number] VITAMIN D, 25 HYDROXY 36.00 ng/mL Sed Rate Ord21 ESR 16 mm/hr 02/09/2017 %Hba1C Rgn002 % HbA1c 65211-8 6.1 % 05/20/2016 %Hba1C Zlx701 Gluc Ave 128 mg/dL 05/20/2016 Lipid Ord30 CHOL 212 mg/dL 05/20/2016 Lipid Ord30 HDL 52.0 mg/dl 05/20/2016 Lipid Ord30 TRIG 149 mg/dL 05/20/2016 Lipid Ord30 LDL 130 mg/dL 05/20/2016 Lipid Ord30 C/HDL 4.1 Ratio 05/20/2016 Comp Metabolic Jwp791 NA 134 mEq/L 04/21/2016 Comp Metabolic Boc716 K 5.0 mEq/L 04/21/2016 Comp Metabolic Pdc483 CL 103 mEq/L 04/21/2016 Comp Metabolic Fuf247 CO2 24.0 mEq/L 04/21/2016 Comp Metabolic Jtq799 ANION GAP 12 04/21/2016 Comp Metabolic Sct380 GLUCOSE 122 mg/dL 04/21/2016 Comp Metabolic Xua454 Creat 1.1 mg/dL 04/21/2016 Comp Metabolic Yop531 eGFR 52 ml/min/1.73m2 04/21/2016 Comp Metabolic Xcl277 BUN 24 mg/dL 04/21/2016 Comp Metabolic Ruv803 B/C Ratio 21.6 Ratio 04/21/2016 Comp Metabolic Jiy442 CALCIUM 9.7 mg/dL 04/21/2016 Comp Metabolic Axc109 ALK PHOS 51 U/L 04/21/2016 Comp Metabolic Cqo778 AST(SGOT) 23 U/L 04/21/2016 Comp Metabolic Zyb890 ALT(SGPT) 17 U/L 04/21/2016 Comp Metabolic Iij336 BILI T 0.5 mg/dL 04/21/2016 Comp Metabolic Nmo923 ALBUMIN 4.4 g/dL 04/21/2016 Comp Metabolic Aym238 TPRO 7.3 g/dL 04/21/2016 Comp Metabolic Vms675 GLOB 2.9 g/dL 04/21/2016 Comp Metabolic Fwz184 A/G Ratio 1.5 Ratio 04/21/2016 Comp Metabolic Sgv567 Osmo 274 mOsmo 04/21/2016 Cbc With Differential [...] 32.0 pg 04/21/2016 Cbc With Differential Ord2 Bryan% 9.1 % 04/21/2016 Cbc With Differential Ord2 [...] 1.39 K/ul 04/21/2016 Cbc With Differential Ord2 Bryan ABS# 0.6 K/ul 04/21/2016 Cbc With Differential Ord2 Eos ABS# 0.1 K/ul 04/21/2016 Cbc With Differential Ord2 Baso ABS# 0.0 K/ul 04/21/2016 Bili D Ord93 BILI D 0.1 mg/dL 04/21/2016 Bili D Ord93 BILI I 0.4 mg/dL 04/21/2016 Vitamin D 25 Oh Gch8027 VITAMIN D, 25 HYDROXY 51.65 ng/mL Sed Rate Ord21 ESR 26 mm/hr 04/21/2016 C-Reactive Protein Qnt Crqnt CRP 0.1 mg/dl 04/21/2016 Comp Metabolic Wwk221 NA 133 mEq/L 03/18/2016 Comp Metabolic Mub348 K 4.9 mEq/L 03/18/2016 Comp Metabolic Scn259 CL 102 mEq/L 03/18/2016 Comp Metabolic Fmg198 CO2 25.0 mEq/L 03/18/2016 Comp Metabolic Uzc052 ANION GAP 11 03/18/2016 Comp Metabolic Xts076 GLUCOSE 114 mg/dL 03/18/2016 Comp Metabolic Wdi482 Creat 1.1 mg/dL 03/18/2016 Comp Metabolic Hpm869 eGFR 54 ml/min/1.73m2 03/18/2016 Comp Metabolic Vsz219 BUN 23 mg/dL 03/18/2016 Comp Metabolic Vue080 B/C Ratio 21.3 Ratio 03/18/2016 Comp Metabolic Tmm286 CALCIUM 9.7 mg/dL 03/18/2016 Comp Metabolic Hzf755 ALK PHOS 54 U/L 03/18/2016 Comp Metabolic Owc732 AST(SGOT) 21 U/L 03/18/2016 Comp Metabolic Uho489 ALT(SGPT) 15 U/L 03/18/2016 Comp Metabolic Tce929 BILI T 0.4 mg/dL 03/18/2016 Comp Metabolic Hwr713 ALBUMIN 4.4 g/dL 03/18/2016 Comp Metabolic Jmk857 TPRO 7.4 g/dL 03/18/2016 Comp Metabolic Ggm381 GLOB 3.0 g/dL 03/18/2016 Comp Metabolic Yfn489 A/G Ratio 1.5 Ratio 03/18/2016 Comp Metabolic Nls741 Osmo 271 mOsmo 03/18/2016 Vitamin D 25 Oh Pny8222 VITAMIN D, 25 HYDROXY 46.10 ng/mL Sed Rate Ord21 ESR 26 mm/hr 02/13/2016 Comp Metabolic Hxf183 NA 133 mEq/L 02/13/2016 Comp Metabolic Rrj134 K 4.8 mEq/L 02/13/2016 Comp Metabolic Qxl831 CL 104 mEq/L 02/13/2016 Comp Metabolic Ntc040 CO2 23.0 mEq/L 02/13/2016 Comp Metabolic Qvl004 ANION GAP 11 02/13/2016 Comp Metabolic Gut418 GLUCOSE 104 mg/dL 02/13/2016 Comp Metabolic Asg476 Creat 1.0 mg/dL 02/13/2016 Comp Metabolic Wlr045 eGFR 56 ml/min/1.73m2 02/13/2016 Comp Metabolic Hpa463 BUN 25 mg/dL 02/13/2016 Comp Metabolic Wik880 B/C Ratio 24.0 Ratio 02/13/2016 Comp Metabolic Bww734 CALCIUM 9.1 mg/dL 02/13/2016 Comp Metabolic Vyn103 ALK PHOS 43 U/L 02/13/2016 Comp Metabolic Mmt302 AST(SGOT) 21 U/L 02/13/2016 Comp Metabolic Glr446 ALT(SGPT) 17 U/L 02/13/2016 Comp Metabolic Mwm704 BILI T 0.4 mg/dL 02/13/2016 Comp Metabolic Ijb574 ALBUMIN 4.3 g/dL 02/13/2016 Comp Metabolic Fkc073 TPRO 7.1 g/dL 02/13/2016 Comp Metabolic Tzx404 GLOB 2.9 g/dL 02/13/2016 Comp Metabolic Pgs112 A/G Ratio 1.5 Ratio 02/13/2016 Comp Metabolic Gec652 Osmo 271 mOsmo 02/13/2016 C-Reactive Protein Qnt [...] 31.6 pg 02/13/2016 Cbc With Differential Ord2 Bryan% 9.7 % 02/13/2016 Cbc With Differential Ord2 [...] 1.17 K/ul 02/13/2016 Cbc With Differential Ord2 Bryan ABS# 0.6 K/ul 02/13/2016 Cbc With Differential Ord2 Eos ABS# 0.1 K/ul 02/13/2016 Cbc With Differential Ord2 Baso ABS# 0.0 K/ul 02/13/2016 Comp Metabolic Fng732 NA 132 mEq/L 10/08/2015 Comp Metabolic Qom693 K 4.7 mEq/L 10/08/2015 Comp Metabolic Kts999 CL 101 mEq/L 10/08/2015 Comp Metabolic Znz206 CO2 24.0 mEq/L 10/08/2015 Comp Metabolic Tkq827 ANION GAP 12 10/08/2015 Comp Metabolic Nrb027 GLUCOSE 85 mg/dL 10/08/2015 Comp Metabolic Dqo467 Creat 0.9 mg/dL 10/08/2015 Comp Metabolic Rts957 eGFR 66 ml/min/1.73m2 10/08/2015 Comp Metabolic Fhl628 BUN 29 mg/dL 10/08/2015 Comp Metabolic Vte677 B/C Ratio 32.2 Ratio 10/08/2015 Comp Metabolic Guj180 CALCIUM 9.1 mg/dL 10/08/2015 Comp Metabolic Jrt999 ALK PHOS 40 U/L 10/08/2015 Comp Metabolic Efe122 AST(SGOT) 18 U/L 10/08/2015 Comp Metabolic Ljx196 ALT(SGPT) 14 U/L 10/08/2015 Comp Metabolic Hkw311 BILI T 0.3 mg/dL 10/08/2015 Comp Metabolic Iub302 ALBUMIN 4.1 g/dL 10/08/2015 Comp Metabolic Dys843 TPRO 6.8 g/dL 10/08/2015 Comp Metabolic Hee857 GLOB 2.7 g/dL 10/08/2015 Comp Metabolic Tbn663 A/G Ratio 1.5 Ratio 10/08/2015 Comp Metabolic Goe616 Osmo 270 mOsmo 10/08/2015 C-Reactive Protein Qnt [...] 96.0 fl 10/08/2015 Cbc With Differential Ord2 Bryan% 10.5 % 10/08/2015 Cbc With Differential Ord2 [...] 1.24 K/ul 10/08/2015 Cbc With Differential Ord2 Bryan ABS# 0.8 K/ul 10/08/2015 Cbc With Differential Ord2 Eos ABS# 0.0 K/ul 10/08/2015 Cbc With Differential Ord2 Baso ABS# 0.0 K/ul 10/08/2015 Sed Rate Ord21 ESR 20 mm/hr 10/08/2015 Vitamin D 25 Oh Yzj5674 VITAMIN D, 25 HYDROXY 54.28 ng/mL Tsh Ord6 hTSH II 1.72 uIU/mL 09/26/2015 Free T4 Jos549 FREE T4 0.80 ng/dL 09/26/2015 Comp Metabolic Sgz297 NA 133 mEq/L 08/06/2015 Comp Metabolic Kud115 K 4.6 mEq/L 08/06/2015 Comp Metabolic Lua263 CL 102 mEq/L 08/06/2015 Comp Metabolic Tmi775 CO2 24.0 mEq/L 08/06/2015 Comp Metabolic Sdg691 ANION GAP 12 08/06/2015 Comp Metabolic Mph370 GLUCOSE 105 mg/dL 08/06/2015 Comp Metabolic Ooq450 Creat 1.0 mg/dL 08/06/2015 Comp Metabolic Djs301 eGFR 60 ml/min/1.73m2 08/06/2015 Comp Metabolic Qxm215 BUN 28 mg/dL 08/06/2015 Comp Metabolic Usk614 B/C Ratio 28.6 Ratio 08/06/2015 Comp Metabolic Lrq237 CALCIUM 9.2 mg/dL 08/06/2015 Comp Metabolic Hxo590 ALK PHOS 42 U/L 08/06/2015 Comp Metabolic Xlx731 AST(SGOT) 20 U/L 08/06/2015 Comp Metabolic Jiy258 ALT(SGPT) 16 U/L 08/06/2015 Comp Metabolic Vhh839 BILI T 0.3 mg/dL 08/06/2015 Comp Metabolic Gep151 ALBUMIN 4.3 g/dL 08/06/2015 Comp Metabolic Bot785 TPRO 6.9 g/dL 08/06/2015 Comp Metabolic Bxt392 GLOB 2.7 g/dL 08/06/2015 Comp Metabolic Hkl268 A/G Ratio 1.6 Ratio 08/06/2015 Comp Metabolic Jlm399 Osmo 272 mOsmo 08/06/2015 C-Reactive Protein Qnt Crqnt CRP 0.00 mg/dl 08/06/2015 Vitamin D 25 Oh Ewm5009 VITAMIN D, 25 HYDROXY 36.25 ng/mL Cbc [...] 20.4 % 08/06/2015 Cbc With Differential Ord2 Bryan% 8.9 % 08/06/2015 Cbc With Differential Ord2 [...] 1.31 K/ul 08/06/2015 Cbc With Differential Ord2 Bryan ABS# 0.6 K/ul 08/06/2015 Cbc With Differential [...] Ord93 BILI I 0.4 mg/dL 04/04/2015 %Hba1C Kvc984 % HbA1c 65039-4 5.7 % 04/04/2015 %Hba1C Bgh110 Gluc Ave 117 mg/dL 04/04/2015 Vitamin D 25 Oh Oug0937 VITAMIN D, 25 HYDROXY 47.62 ng/mL C-Reactive [...] Ord2 RDW 13.0 % 04/04/2015 Comp Metabolic Qfa930 NA 132 mEq/L 04/04/2015 Comp Metabolic Xyf148 K 4.6 mEq/L 04/04/2015 Comp Metabolic Tuz797 CL 100 mEq/L 04/04/2015 Comp Metabolic Ueh769 CO2 22.0 mEq/L 04/04/2015 Comp Metabolic Unf297 ANION GAP 15 04/04/2015 Comp Metabolic Yem703 GLUCOSE 118 mg/dL 04/04/2015 Comp Metabolic Lmw854 Creat 1.0 mg/dL 04/04/2015 Comp Metabolic Nub187 eGFR 60 ml/min/1.73m2 04/04/2015 Comp Metabolic Rav190 BUN 18 mg/dL 04/04/2015 Comp Metabolic Max862 B/C Ratio 18.4 Ratio 04/04/2015 Comp Metabolic Bar589 CALCIUM 9.6 mg/dL 04/04/2015 Comp Metabolic Pry040 ALK PHOS 63 U/L 04/04/2015 Comp Metabolic Rcx458 AST(SGOT) 17 U/L 04/04/2015 Comp Metabolic Dtf693 ALT(SGPT) 13 U/L 04/04/2015 Comp Metabolic Ene674 BILI T 0.5 mg/dL 04/04/2015 Comp Metabolic Frh132 ALBUMIN 4.6 g/dL 04/04/2015 Comp Metabolic Tqe407 TPRO 7.4 g/dL 04/04/2015 Comp Metabolic Ffx646 GLOB 2.8 g/dL 04/04/2015 Comp Metabolic Cju431 A/G Ratio 1.6 Ratio 04/04/2015 Comp Metabolic Vds732 Osmo 268 mOsmo 04/04/2015 Sed Rate Ord21 ESR 16 mm/hr 04/04/2015 Lipid Ord30 CHOL 214 mg/dL 04/04/2015 Lipid Ord30 HDL 61.0 mg/dl 04/04/2015 Lipid Ord30 TRIG 155 mg/dL 04/04/2015 Lipid Ord30 LDL 122 mg/dL 04/04/2015 Lipid Ord30 C/HDL 3.5 Ratio 04/04/2015 %Hba1C Rdg574 % HbA1c 93400-9 5.9 % 11/28/2014 %Hba1C Maa844 Gluc Ave 123 mg/dL 11/28/2014 Cbc With [...] Rate Ord21 ESR 19 mm/hr 11/27/2014 Hepatic Lrs199 ALBUMIN 4.4 g/dL 11/27/2014 Hepatic Djy827 TPRO 7.0 g/dL 11/27/2014 Hepatic Ooh129 GLOB 2.6 g/dL 11/27/2014 Hepatic Wqe128 A/G Ratio 1.7 Ratio 11/27/2014 Hepatic Hzf161 ALK PHOS 63 U/L 11/27/2014 Hepatic Lac870 ALT(SGPT) 14 U/L 11/27/2014 Hepatic Czi868 AST(SGOT) 19 U/L 11/27/2014 Hepatic Roe014 BILI T 0.4 mg/dL 11/27/2014 Hepatic Bvv352 BILI D 0.1 mg/dL 11/27/2014 Hepatic Lhj264 BILI I 0.3 mg/dL 11/27/2014 Lipid Ord30 [...] Formatting Model/CDA Sections, Assigned to/Tabitha Velasquez CPT-4: 27776Kflrojb 12/29/2017 PPPS, SUBSEQ VISIT CPT -4: G0439 09/17/2017 PPPS, SUBSEQ VISIT CPT -4: G0439 08/21/2016 PNEUMOCOCCAL VACC [address]: 05306518 CPT-4: 77616 02/20/2016 ADMIN PNEUMOCOCCAL VACCINE SNOMED CT: 04523528 CPT-4: G0009 02/20/2016 ADMIN INFLUENZA VIRUS VAC CPT-4: G0008 01/23/2016 FLU VACC 4 KATIE 3 YRS PLUS IM SNOMED CT: 91534652 CPT-4: 02401 01/23/2016 PPPS, SUBSEQ VISIT CPT -4: G0439 07/19/2015 Vital Signs Date Vital 01/12/2018 Blood Pressure 1: 124/70 Code : 8480-6 BMI: 30.2 Code : 41408-1 Heart Rate 1 : 59 bpm Height: 5'1" SpO2: 98% Weight: 160 lbs 12/29/2017 Blood Pressure 1: 148/82 Code : 8480-6 BMI: 30.4 Code : 48966-6 Heart Rate 1 : 60 bpm Height: 5'1" SpO2: 99% Weight: 161 lbs 09/17/2017 Height: Weight: 08/25/2017 Blood Pressure 1: 130/72 Code : 8480-6 BMI: 29.9 Code : 52569-9 Heart Rate 1 : 70 bpm Height: 5'1" SpO2: 93% Weight: 158 lbs 07/21/2017 Blood Pressure 1: 150/84 Code : 8480-6 BMI: 29.5 Code : 46110-9 Heart Rate 1 : 62 bpm Height: 5'1" SpO2: 98% Weight: 156 lbs 06/17/2017 Blood Pressure 1: 148/86 Code : 8480-6 BMI: 29.5 Code : 41040-8 Heart Rate 1 : 64 bpm Height: 5'1" SpO2: 98% Weight: 156 lbs 02/17/2017 Blood Pressure 1: 144/86 Code : 8480-6 BMI: 28.7 Code : 80442-0 Heart Rate 1 : 64 bpm Height: 5'1" SpO2: 96% Weight: 152 lbs 01/02/2017 Blood Pressure 1: 132/78 Code : 8480-6 BMI: 28.3 Code : 14214-0 Heart Rate 1 : 71 bpm Height: 5'1" SpO2: 97% Weight: 150 lbs 12/05/2016 Blood Pressure 1: 140/76 Code : 8480-6 BMI: 29.5 Code : 18983-0 Heart Rate 1 : 66 bpm Height: 5'1" SpO2: 98% Weight: 156 lbs 08/21/2016 Blood Pressure 1: 142/78 Code : 8480-6 BMI: 29.9 Code : 10391-5 Heart Rate 1 : 62 bpm Height: 5'1" SpO2: 98% Waist Measure (cm): 79 cm Weight: 158 lbs 08/19/2016 Blood Pressure 1: 142/78 Code : 8480-6 BMI: 29.9 Code : 13382-1 Heart Rate 1 : 62 bpm Height: 5'1" SpO2: 98% Weight: 158 lbs 05/20/2016 Blood Pressure 1: 152/76 Code : 8480-6 Blood Pressure 1: 144/80 Code: 8480-6 BMI: 29.3 Code: 39627-3 Heart Rate 1: 60 bpm Height: 5'1" SpO2: 95% Weight: 155 lbs 01/23/2016 Blood Pressure 1: 138/78 Code : 8480-6 BMI: 29.7 Code : 10228-6 Heart Rate 1 : 64 bpm Height: 5'1" SpO2: 98% Weight: 157 lbs 09/26/2015 Blood Pressure 1: 136/76 Code : 8480-6 BMI: 28.3 Code : 40472-1 Heart Rate 1 : 70 bpm Height: 5'1" SpO2: 98% Weight: 150 lbs 08/23/2015 Blood Pressure 1: 126/78 Code : 8480-6 BMI: 27.8 Code : 48493-1 Heart Rate 1 : 68 bpm Height: 5'1" SpO2: 97% Weight: 147 lbs 07/19/2015 Blood Pressure 1: 146/70 Code : 8480-6 BMI: 26.8 Code : 93940-1 Heart Rate 1 : 58 bpm Height: 5'1" SpO2: 96% Waist Measure (cm): 84 cm Weight: 142 lbs 04/17/2015 Blood Pressure 1: 132/62 Code : 8480-6 BMI: 25.3 Code : 48878-5 Heart Rate 1 : 98 bpm Height: 5'1" SpO2: 97% Weight: 134 lbs 03/15/2015 Blood Pressure 1: 158/72 Code : 8480-6 Blood Pressure 1: 160/70 Code: 8480-6 BMI: 25.5 Code: 99739-8 Heart Rate 1: 74 bpm Heart Rate 1: 72 bpm Height: 5'1" Height: SpO2: 98% Weight: 135 lbs Weight: 02/06/2015 Blood Pressure 1: 142/82 Code : 8480-6 BMI: 25.5 Code : 88368-0 Heart Rate 1 : 82 bpm Height: 5'1" SpO2: 96% Weight: 135 lbs 12/13/2014 Blood Pressure 1: 136/64 Code : 8480-6 BMI: 24.9 Code : 67339-9 Heart Rate 1 : 86 bpm Height: 5'1" SpO2: 95% Weight: 132 lbs 10/11/2014 Blood Pressure 1: 140/80 Code : 8480-6 BMI: 25.1 Code : 68869-2 Heart Rate 1 : 72 bpm Height: [...] Present Encounters Encounter Performer Location Codes Date ([id number]) 37082 EST. PATIENT, LEVEL III Diagnosis: Essential (primary) hypertension[ICD10: I10] Diagnosis: Type 2 diabetes mellitus without complications[ICD10: E11.9] Diagnosis: Encounter for immunization[ICD10: Z23] Diagnosis: Muscle weakness (generalized)[ICD10: M62.81] Maria Luisa Echeverria MD, [facility] CPT-4: 91380 01/12/2018 ([id number]) 47461 EST. PATIENT, LEVEL IV Diagnosis: Essential (primary) hypertension[ICD10: I10] Diagnosis: Type 2 diabetes mellitus without complications[ICD10: E11.9] Diagnosis: Encounter for immunization[ICD10: Z23] Diagnosis: Muscle weakness (generalized)[ICD10: M62.81] Maria Luisa Echeverria MD, [facility] CPT-4: 57476 12/29/2017 ([id number]) 44311 EST. PATIENT, LEVEL IV Diagnosis: Essential (primary) hypertension[ICD10: I10] Diagnosis: Muscle weakness (generalized)[ICD10: M62.81] Diagnosis: 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 artery[ICD10: I66.01 ] Maria Luisa Echeverria MD [facility] CPT-4: 89548 08/25/2017 ([id number]) 27448 EST. PATIENT, LEVEL IV Diagnosis: Essential (primary) hypertension[ICD10: I10] Diagnosis: 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 artery[ICD10: I66.01 ] Maria Luisa Echeverria MD [facility] CPT-4: 20422 07/21/2017 ([id number]) 52319 EST. PATIENT, LEVEL IV Diagnosis: Essential (primary) hypertension[ICD10: I10] Diagnosis: Type 2 diabetes mellitus without complications[ICD10: E11.9] Diagnosis: 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 artery[ICD10: I66.01 ] Maria Luisa Echeverria MD, [facility] CPT-4: 05979 06/17/2017 ([id number]) 47511 EST. PATIENT, LEVEL IV Diagnosis: Essential (primary) hypertension[ICD10: I10] Diagnosis: Muscle weakness (generalized)[ICD10: M62.81] Diagnosis: Mixed hyperlipidemia[ICD10: E78.2] Maria Luisa Echeverria MD [facility] CPT-4: 07700 02/17/2017 ([id number]) 75780 EST. PATIENT, LEVEL III Diagnosis: Essential (primary) hypertension[ICD10: I10] Diagnosis: Muscle weakness (generalized)[ICD10: M62.81] Diamond Echeverria MD, [facility] CPT-4: 88624 01/02/2017 ([id number]) 96395 EST. PATIENT, LEVEL IV Diagnosis: Muscle weakness (generalized)[ICD10: M62.81] Diagnosis: Cerebral infarction, unspecified[ICD10: I63.9] Diagnosis: Essential (primary) hypertension[ICD10: I10] Diagnosis: Gastro-esophageal reflux disease without esophagitis[ICD10: K21.9] Diagnosis: Allergic rhinitis due to pollen[ICD10: J30.1] Diamond Echeverria MD, [facility] CPT-4: 99835 12/05/2016 ([id number]) 41516 EST. PATIENT, LEVEL IV Diagnosis: Essential (primary) hypertension[ICD10: I10] Diagnosis: Type 2 diabetes mellitus without complications[ICD10: E11.9] Maria Luisa Echeverria MD, [facility] CPT-4: 70058 08/19/2016 [id number] EST. PATIENT, LEVEL IV Diagnosis: Essential (primary) hypertension[ICD10: I10] Diagnosis: Type 2 diabetes mellitus without complications[ICD10: E11.9] Diagnosis: Mixed hyperlipidemia[ICD10: E78.2] Ashley Echeverria MD, [facility] CPT-4: 21221 05/20/2016 ([id number]) 89455 EST. PATIENT, LEVEL IV Diagnosis: Type 2 diabetes mellitus without complications[ICD10: E11.9] Diagnosis: Family history of other endocrine, nutritional and metabolic diseases [ICD10: Z83.49] Diagnosis: Other fatigue[ICD10: R53.83] Diagnosis: Abnormal weight gain[ICD10: R63.5] Diagnosis: Actinic keratosis[ICD10: L57.0] Maria Luisa Echeverria MD, [facility] CPT- 4: 12963 01/23/2016 ([id number]) 00009 EST. PATIENT, LEVEL IV Diagnosis: Family history of other endocrine, nutritional and metabolic diseases [ICD10: Z83.49] Diagnosis: Other fatigue[ICD10: R53.83] Diagnosis: Abnormal weight gain[ICD10: R63.5] Diagnosis: Actinic keratosis[ICD10: L57.0] Diagnosis: Type 2 diabetes mellitus without complications[ICD10: E11.9] Maria Luisa Echeverria MD, [facility] CPT-4: 14816 09/26/2015 ([id number]) 38429 EST. PATIENT, LEVEL IV Diagnosis: Essential (primary) hypertension[ICD10: I10] Diagnosis: Type 2 diabetes mellitus without complications[ICD10: E11.9] Diagnosis: Other depressive episodes[ICD10: F32.8] Diagnosis: Vitamin D deficiency, unspecified[ICD10: E55.9] Maria Luisa Echeverria MD, [facility] CPT-4: 97274 08/23/2015 ([id number]) 27537 EST. PATIENT, LEVEL IV Diagnosis: Essential (primary) hypertension[ICD10: I10] Diagnosis: Benign paroxysmal vertigo, unspecified ear[ICD10: H81.10] Diagnosis: Type 2 diabetes mellitus without complications[ICD10: E11.9] Maria Luisa Echeverria MD, [facility] CPT-4: 66577 04/17/2015 ([id number] 27534 EST. PATIENT, LEVEL III Diagnosis: Essential (primary) hypertension[ICD10: I10] Diagnosis: Benign paroxysmal vertigo, unspecified ear[ICD10: H81.10] Diamond Echeverria MD , [facility] CPT-4: 97878 03/15/2015 ([id number]) 67554 EST. PATIENT, LEVEL III Diagnosis: Essential (primary) hypertension[ICD10: I10] Diagnosis: Edema, unspecified[ICD10: R60.9] Diamond Echeverria MD, [facility] CPT-4: 18088 02/06/2015 [id number]) 58988 EST. PATIENT, LEVEL IV Diagnosis: ESSENTIAL HYPERTENSION[ICD9: 401.9] Diagnosis: HYPERLIPIDEMIA[ICD9: 272.4] Diagnosis: DEPRESSIVE DISORDER NEC[ICD9: 311] Diagnosis: ESOPHAGEAL REFLUX[ICD9: 530.81] Diagnosis: RESTLESS LEGS SYNDROME[ICD9: 333.94] Maria Luisa Echeverria MD, [facility] CPT-4: 24005 12/13/2014 ([id number]) OFFICE VISIT, NEW - LEVEL 4 Diagnosis: ESSENTIAL HYPERTENSION[ICD9: 401.9] Diagnosis: HYPERLIPIDEMIA[ICD9: 272.4] Diagnosis: DEPRESSIVE DISORDER NEC[ICD9: 311] Diagnosis: ESOPHAGEAL REFLUX[ICD9: 530.81] Diagnosis: RESTLESS LEGS SYNDROME[ICD9: 333.94] Maria Luisa Echeverria MD, [facility] CPT-4: 99439 10/11/2014 Plan of Care Planned Activity Notes [...] 01/12/2018 Appointment[phone] [facility] ([facility] min) Moderate 01/12/2018 Patient Education: [...] she stopped therapy when she left the snf. She states that she does struggle with her strength. She states that she would rather do activities on her own rather than going to physical therapy. high dose flu shot today due to autoimmune deficiency 12/29/2017 Appointment: [phone] [facility] ([facility] min) Moderate 12/29/2017 Patient Education: [...] she stopped therapy when she left the snf. She states that she does struggle with her strength. She states that she would rather do activities on her own rather than going to physical therapy. 08/25/2017 Appointment: Maria Luisa Echeverria WPtel: [phone] [facility] (15 min) Moderate 08/25/2017 Patient Education: Patient [...] 07/21/2017 Appointment: Maria Luisa Echeverria WPtel: [phone] [facility] (15 min) Moderate 07/21/2017 Patient Education: Patient Medication Summary Completed 07/21/2017 Visit Plan: Right Middle Cerebral artery stroke - appt with neurology with Dr. Macario at Neurology. Gait instability - appt with [facility] out[facility] physical therapy Hypertension - stable - continue with current treatment - monitor symptoms DM - diet controlled - 06/17/2017 Appointment: [facility] [phone] [facility] ([facility] min) Moderate 06/17/2017 Patient Education: [...] medications. 02/17/2017 Appointment: Maria Luisa Echeverria WPtel: [facility] (15 min) Moderate 02/17/2017 Patient Education: Patient Medication Summary Completed 02/17/2017 Care Plan: Referral Order SNOMED-CT : [id number] Pending 02/17/2017 Visit Plan: Hypertension - well controlled - continue with current medications, continue with no added salt diet. Pt has been encouraged to exercise daily. The pt has been advised to call the office if there are any acute concerns about change in blood pressure readings at home. Weakness-recent stroke-strength improving-no changes 01/02/2017 [facility] [phone] [phone] [place] (30 min) Complex 01/02/2017 Patient Education: Patient Medication Summary Completed 01/02/2017 Visit Plan: Hypertension - well controlled - continue with current medications, continue with no added salt diet. Pt has been encouraged to exercise daily. The pt has been advised to call the office if there are any acute concerns about change in blood pressure readings at home. Generalized weakness-gait mkylhflggxw-OGJ-kijdtpev PT-patient to use 4 wheeled walker GERD- dysphagia-refer for speech eval-start pepcid twice daily Allergies-chronic- restart allergy pill as directed 12/05/2016 Appointment: Diamond Sawyer WPtel: [phone] [phone] (15 min) Moderate 12/05/2016 [...] care surrogate. 08/21/2016 Appointment: Ashley Wooten WPtel: [phone] [facility] [facility] - Annual Wellness Visit 08/21/2016 Patient [...] 08/19/2016 Appointment: Maria Luisa Echeverria WPtel: [phone] [facility] (15 min) Moderate 08/19/2016 Patient Education: [...] medications. 05/20/2016 [facility]ment[phone] [facility] ([facility] min) Moderate 05/20/2016 Patient [...] 01/23/2016 Appointment: Maria Luisa Echeverria WPtel: [phone] [facility] (15 min) Moderate 01/23/2016 Patient Education: [...] home. 09/26/2015 Appointment: Maria Luisa Echeverria WPtel: [phone] [facility] (15 min) Moderate 09/26/2015 Patient Education: Patient [...] Completed 08/23/2015 Appointment: Maria Luisa Echeverria WPtel: [facility] [place] (15 min) Moderate 08/22/2015 Appointment: Maria Luisa Echeverria WPtel: [facility] (15 min) Moderate 08/15/2015 Visit Plan: [...] paperwork for health care surrogate. 07/19/2015 Appointment: [facility] - Annual Wellness Visit 07/19/2015 Patient [...] week. 04/17/2015 Appointment: Maria Luisa Echeverria [facility] ([facility] min) Moderate 04/17/2015 Patient Education: [...] 12/13/2014 Appointment: [facility] [phone] [facility] [place] (15 min) Moderate 12/13/2014 Patient Education: Patient [...] medications. 10/11/2014 Appointment: Maria Luisa Echeverria [facility]el[facility] [place] ([place] New Patient 10/11/2014 Appointment: [facility] [phone] [facility] [place] (15 min) Moderate 10/11/2014 Patient Education: [...] she stopped therapy when she left the snf. She states that she does struggle with [...] blood pressure readings at home. Generalized weakness-gait mrcgzpbwean-CAW-ncxpgxpr PT-patient to use 4 wheeled walker XESQ-oseragrow-blvkg for speech eval-start pepcid twice daily Dcvglyuym-bhcvdhw-fixtbop allergy pill as directed . Hypertension - [...] she stopped therapy when she left the snf. She states that she does struggle with [...]
--- OUTSIDE RECORDS SUMMARY | 2018-07-02 14:34 | XMS REPORT | CCD ---
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 Name Role Phone PP Unavailable CCM Unavailable Summary Purpose Interface Exchange Insurance Providers Payer name Policy type / Coverage type Covered constitution party ID Effective Begin Date Effective End Date WPS Medicare Part B Medicare Part B [id number] 2017 Unknown [facility] Medicare Part B [id number] Unknown Family history Mother Diagnosis Age At [...] Unknown 5 10/11/[address]: 617641892 Never smoker 10/11/[address]: 344233109 Never drinks alcohol 10/11/2014 Allergies, Adverse Reactions, [...] Start Date Stop Date Status Fill Instructions Lomotil 2.5 mg-0.025 mg tablet RxNorm: 5382149 1 Tablet(s) PO daily as needed 05/11/2018 11/06/2018 Active Plavix 75 mg tablet RxNorm: 239713 TAKE ONE TABLET BY MOUTH DAILY 04/26/2018 12/21/2018 Active Request already responded to by other means (e.g. phone or fax) Coreg 3.125 mg tablet RxNorm: 618369 TAKE ONE-HALF TABLET BY MOUTH TWICE A DAY 04/19/2018 09/15/2018 Active clonazepam 0.5 mg tablet RxNorm: 729589 Tablet(s) TAKE 2 TABLETS BY MOUTH AT BEDTIME NEEDED 04/19/2018 07/17/2018 Active Plavix 75 mg tablet RxNorm: 858210 Tablet(s) TAKE ONE TABLET BY MOUTH DAILY 04/19/2018 04/25/2018 Inactive Metasonic AGTouch Ultra Test strips RxNorm: TEST 1 TIME DAILY 201804/08/2019 Active Benicar 40 mg tablet RxNorm: 689501 1 Tablet(s) PO daily 201707/23/2018 Active This replaces losartan Benicar 40 mg tablet RxNorm: 644442 1 Tablet(s) PO daily 201702/23/2018 Inactive This replaces losartan clonazepam 0.5 mg tablet RxNorm: 082444 Tablet(s) TAKE 2 TABLETS BY MOUTH AT BEDTIME NEEDED 01/20/2018 04/18/2018 Inactive Coreg 3.125 mg tablet RxNorm: 064817 1/2 Tablet(s) PO BID 201704/18/2018 Inactive Mirapex 0.5 mg tablet RxNorm: 954495 TAKE ONE TABLET BY MOUTH EVERY NIGHT AT BEDTIME 12/21/2017 05/19/2018 Active folic acid 1 mg tablet RxNorm: 527443 TAKE ONE TABLET BY MOUTH DAILY 12/11/2017 12/05/2018 Active Plavix 75 mg tablet RxNorm: 999337 TAKE ONE TABLET BY MOUTH DAILY 12/11/2017 04/18/2018 Inactive Aspirin Low Dose 81 mg tablet,delayed release RxNorm: 781411 TAKE ONE TABLET BY MOUTH DAILY 11/24/2017 12/28/2017 Inactive Request already responded to by other means (e.g. phone or fax) Aspirin Low Dose 81 mg tablet,delayed release RxNorm: 424377 1 Tablet(s) PO daily 11/18/2017 11/17/2017 Inactive Aspirin Low Dose 81 mg tablet,delayed release RxNorm: 211024 1 Tablet(s) PO daily 11/18/2017 11/23/2017 Inactive clonazepam 0.5 mg tablet RxNorm: 431102 Tablet(s) TAKE 2 TABLETS BY MOUTH AT BEDTIME NEEDED 10/23/2017 04/18/2018 Inactive Lomotil 2.5 mg-0.025 mg tablet RxNorm: 1790750 1 Tablet(s) PO daily as needed 09/28/2017 03/25/2018 Inactive pravastatin 80 mg tablet RxNorm: 051062 TAKE ONE TABLET BY MOUTH EVERY EVENING 08/19/2017 11/11/2018 Active clonazepam 0.5 mg tablet RxNorm: 211066 Tablet(s) TAKE 2 TABLETS BY MOUTH AT BEDTIME NEEDED 07/24/2017 10/20/2017 Inactive Mirapex 0.5 mg tablet RxNorm: 960191 TAKE ONE TABLET BY MOUTH EVERY NIGHT AT BEDTIME 07/23/2017 12/19/2017 Inactive Vitamin D2 50,000 unit capsule RxNorm: 036675 1 Capsule(s) PO QW 07/22/2017 07/21/2017 Inactive Vitamin D2 50,000 unit capsule RxNorm: 868822 1 Capsule(s) PO QW 07/22/2017 10/19/2017 Inactive amlodipine 5 mg tablet RxNorm: 928106 1 Tablet(s) PO daily 01/201812/28/2017 Inactive Refill not appropriate Prozac 40 mg capsule RxNorm: 534336 TAKE ONE CAPSULE BY MOUTH DAILY 06/24/2017 06/18/2018 Active Plavix 75 mg tablet RxNorm: 601733 TAKE ONE TABLET BY MOUTH DAILY 06/18/2017 12/10/2017 Inactive Lomotil 2.5 mg-0.025 mg tablet RxNorm: 4559546 1 Tablet(s) PO daily as needed 06/04/2017 11/17/2017 Inactive losartan 100 mg tablet RxNorm: 506044 TAKE ONE TABLET BY MOUTH DAILY 05/11/2017 02/23/2018 Inactive OneTouch Ultra Test strips RxNorm: TEST 1 TIME DAILY 201704/13/2018 Inactive clonazepam 0.5 mg tablet RxNorm: 672381 Tablet(s) TAKE 2 TABLETS BY MOUTH AT BEDTIME NEEDED 04/14/2017 11/17/2017 Inactive Lomotil 2.5 mg-0.025 mg tablet RxNorm: 2908782 1 Tablet(s) PO daily as needed 03/17/2017 06/03/2017 Inactive Mirapex 0.5 mg tablet RxNorm: 050797 TAKE ONE TABLET BY MOUTH EVERY NIGHT AT BEDTIME 01/19/2017 07/17/2017 Inactive clonazepam 0.5 mg tablet RxNorm: 366540 Tablet(s) TAKE 2 TABLETS BY MOUTH AT BEDTIME NEEDED 01/12/2017 04/09/2017 Inactive tramadol 50 mg tablet RxNorm: 993046 1-2 Tablet(s) PO Q6 PRN pain 12/31/2016 08/24/2017 Inactive folic acid 1 mg tablet RxNorm: 985643 TAKE ONE TABLET BY MOUTH DAILY 12/24/2016 12/10/2017 Inactive tramadol 50 mg tablet RxNorm: 548409 1-2 Tablet(s) PO Q6 PRN pain 12/12/2016 12/16/2016 Inactive tramadol 50 mg tablet RxNorm: 949225 1-2 Tablet(s) PO Q6 PRN pain 12/12/2016 12/11/2016 Inactive clonazepam 0.5 mg tablet RxNorm: 656230 Tablet(s) TAKE 2 TABLETS BY MOUTH AT BEDTIME NEEDED 12/09/2016 01/11/2017 Inactive pravastatin 80 mg tablet RxNorm: 662615 TAKE ONE TABLET BY MOUTH EVERY EVENING 11/11/2016 08/07/2017 Inactive Mirapex 0.5 mg tablet RxNorm: 814137 TAKE ONE TABLET BY MOUTH EVERY NIGHT AT BEDTIME 10/29/2016 01/18/2017 Inactive Prozac 40 mg capsule RxNorm: 525816 TAKE ONE CAPSULE BY MOUTH DAILY 10/29/2016 06/23/2017 Inactive spironolactone 25 mg tablet RxNorm: 109527 TAKE ONE TABLET BY MOUTH DAILY 10/29/2016 12/04/2016 Inactive clonazepam 0.5 mg tablet RxNorm: 753848 Tablet(s) TAKE 2 TABLETS BY MOUTH AT BEDTIME NEEDED 09/24/2016 11/22/2016 Inactive Lomotil 2.5 mg-0.025 mg tablet RxNorm: 8859408 1 Tablet(s) PO daily as needed 07/30/2016 01/23/2017 Inactive sucralfate 1 gram tablet RxNorm: 318898 TAKE ONE-HALF TABLET BY MOUTH TWO TIMES A DAY ONE HOUR BEFORE MEALS 07/28/201608/24 Inactive losartan 100 mg tablet RxNorm: 827471 TAKE ONE TABLET BY MOUTH DAILY 07/28/2016 01/23/2017 Inactive Lialda 1.2 gram tablet,delayed release RxNorm: 299427 3 Tablet(s) PO daily 07/02/2016 08/24/2017 Inactive Mirapex 0.5 mg tablet RxNorm: 383374 TAKE ONE TABLET BY MOUTH EVERY NIGHT AT BEDTIME 06/27/2016 10/24/2016 Inactive clonazepam 0.5 mg tablet RxNorm: 217426 Tablet(s) TAKE 2 TABLETS BY MOUTH AT BEDTIME NEEDED 06/27/2016 01/11/2017 Inactive clonazepam 0.5 mg tablet RxNorm: 537516 Tablet(s) TAKE 2 TABLETS BY MOUTH AT BEDTIME NEEDED 04/29/2016 06/25/2016 Inactive folic acid 1 mg tablet RxNorm: 020052 TAKE ONE TABLET BY MOUTH DAILY 02/28/2016 11/23/2016 Inactive clonazepam 0.5 mg tablet RxNorm: 19740520 Tablet(s) TAKE 2 TABLETS BY MOUTH AT BEDTIME NEEDED 02/26/2016 01/11/2017 Inactive OneTouch Ultra Test strips RxNorm: TEST ONCE DAILY 02/25/2016 08/22/2016 Inactive sucralfate 1 gram tablet RxNorm: 399327 TAKE ONE-HALF TABLET BY MOUTH TWO TIMES A DAY ONE HOUR BEFORE MEALS 01/28/201607/25 Inactive Mirapex 0.5 mg tablet RxNorm: 601700 TAKE ONE TABLET BY MOUTH EVERY NIGHT AT BEDTIME 01/28/2016 06/25/2016 Inactive spironolactone 25 mg tablet RxNorm: 744865 TAKE ONE TABLET BY MOUTH DAILY 01/28/2016 10/23/2016 Inactive Lomotil 2.5 mg-0.025 mg tablet RxNorm: 0423271 1 Tablet(s) PO daily as needed 12/05/2015 01/11/2017 Inactive Klor-Con M20 mEq tablet,extended release RxNorm: 948744 TAKE ONE TABLET BY MOUTH THREE TIMES A DAY 12/05/2015 08/24/2017 Inactive losartan 100 mg tablet RxNorm: 059274 TAKE ONE TABLET BY MOUTH DAILY 11/22/2015 07/27/2016 Inactive amlodipine 5 mg tablet RxNorm: 083425 TAKE ONE TABLET BY MOUTH DAILY 11/13/2015 11/06/2016 Inactive Refill not appropriate clonazepam 0.5 mg tablet RxNorm: 097508 Tablet(s) TAKE 2 TABLETS BY MOUTH AT BEDTIME NEEDED 11/08/2015 01/11/2017 Inactive clonazepam 0.5 mg tablet RxNorm: 712386 Tablet(s) TAKE 2 TABLETS BY MOUTH AT BEDTIME NEEDED 11/02/2015 01/29/2016 Inactive Prozac 40 mg capsule RxNorm: 909063 1 Capsule(s) PO daily 10/3010/24/2016 Inactive pravastatin 80 mg tablet RxNorm: 759960 1 Tablet(s) PO QPM 10/23/2016 Inactive OneTouch Ultra Test strips RxNorm: TEST ONCE DAILY 10/30/2015 01/27/2016 Inactive Imuran 50 mg tablet RxNorm: 592830 1.5 (75) Tablet(s) PO daily 08/17/2015 08/10/2016 Inactive K75.4 clonazepam 0.5 mg tablet RxNorm: 050453 Tablet(s) TAKE 2 TABLETS BY MOUTH AT BEDTIME NEEDED 08/10/2015 01/11/2017 Inactive Imuran 50 mg tablet RxNorm: 441654 1.5 (75) Tablet(s) PO daily 08/10/2015 08/16/2015 Inactive OneTouch Ultra Test strips RxNorm: TEST ONCE DAILY 08/09/2015 10/29/2015 Inactive Vitamin D2 50,000 unit capsule RxNorm: 489749 1 Capsule(s) PO QW 08/07/2015 01/11/2017 Inactive Mirapex 0.5 mg tablet RxNorm: 361081 Tablet(s) TAKE ONE TABLET BY MOUTH EVERY NIGHT AT BEDTIME 07/19/2015 01/14/2016 Inactive Lomotil 2.5 mg-0.025 mg tablet RxNorm: 6541775 1 Tablet(s) PO daily as needed 06/06/2015 01/11/2017 Inactive clonazepam 0.5 mg tablet RxNorm: 797860 Tablet(s) TAKE 2 TABLETS BY MOUTH AT BEDTIME NEEDED 05/10/2015 08/06/2015 Inactive sucralfate 1 gram tablet RxNorm: 315853 TAKE ONE-HALF TABLET BY MOUTH TWO TIMES A DAY ONE HOUR BEFORE MEALS 05/04/201501/26 Inactive meclizine 25 mg tablet RxNorm: 242408 1/2-1 Tablet(s) PO Q6 PRN 03/15/2015 08/24/2017 Inactive spironolactone 25 mg tablet RxNorm: 340226 1 Tablet(s) PO daily 03/14/2015 01/27/2016 Inactive spironolactone 25 mg tablet RxNorm: 748013 1 Tablet(s) PO daily 03/14/2015 03/13/2015 Inactive clonazepam 0.5 mg tablet RxNorm: 570880 TAKE 2 TABLETS BY MOUTH AT BEDTIME NEEDED 02/08/2015 05/02/2015 Inactive folic acid 1 mg tablet RxNorm: 828147 1 Tablet(s) PO daily 02/01/2016 Inactive clonazepam 0.5 mg tablet RxNorm: 762205 TAKE 2 TABLETS BY MOUTH AT BEDTIME NEEDED 02/06/2015 02/08/2015 Inactive amlodipine 10 mg tablet RxNorm: 984540 1/2 Tablet(s) PO daily 02/06/2015 07/18/2015 Inactive this replaces her 5mg pill OneTouch Ultra Test strips RxNorm: TEST ONCE DAILY 01/30/2015 07/28/2015 Inactive Mirapex 0.5 mg tablet RxNorm: 388519 TAKE ONE TABLET BY MOUTH EVERY NIGHT AT BEDTIME 01/29/2015 07/18/2015 Inactive sucralfate 1 gram tablet RxNorm: 543582 TAKE ONE-HALF TABLET BY MOUTH TWO TIMES A DAY ONE HOUR BEFORE MEALS 01/11/201504/10 Inactive OneTouch Ultra Test strips RxNorm: 1 Miscellaneous daily 11/1401/29/2015 Inactive amlodipine 10 mg tablet RxNorm: 080236 1 Tablet(s) PO daily 02/05/2015 Inactive this replaces her 5mg pill clonazepam 0.5 mg tablet RxNorm: 806122 2 Tablet(s) PO QHS 10/201402/05/2015 Inactive sucralfate 1 gram tablet RxNorm: 924165 1/2 Tablet(s) PO BID 1 hour before meal 10/11/2014 01/08/2015 Inactive losartan 100 mg tablet RxNorm: 584651 1 Tablet(s) PO daily 04/201410/05/2015 Inactive amlodipine 5 mg tablet RxNorm: 836169 1 Tablet(s) PO daily 04/201410/30/2014 Inactive Imuran 50 mg tablet RxNorm: 941891 1.5 (75) Tablet(s) PO daily 10/11/2014 08/09/2015 Inactive Lomotil 2.5 mg-0.025 mg tablet RxNorm: 2094761 1 Tablet(s) PO daily as needed 10/11/2014 06/05/2015 Inactive pravastatin 80 mg tablet RxNorm: 385853 1 Tablet(s) PO QPM 04/201410/05/2015 Inactive Klor-Con M20 mEq tablet,extended release RxNorm: 631437 1 Tablet(s) PO TID 10/11/2014 10/05/2015 Inactive Mirapex 0.5 mg tablet RxNorm: 996520 1 Tablet(s) PO QHS 201401/28/2015 Inactive Prozac 40 mg capsule RxNorm: 790983 1 Capsule(s) PO daily 10/1110/05/2015 Inactive Colazal 750 mg capsule RxNorm: 447465 1 Capsule(s) PO TID No Start Date Active Combigan 0.2 %-0.5 % eye drops RxNorm: 337663 1 Drop(s) ophthalmic (eye) BID No Start Date Active Lumigan 0.01 % eye drops RxNorm: 3911678 1 Drop(s) OPH QHS No Start Date Active Prolia 60 mg/mL subcutaneous syringe RxNorm: 210405 1 Milliliter(s) SQ every 6 months No Start Date Active Vitamin D2 50,000 unit capsule RxNorm: 755336 1 Capsule(s) PO QW No Start Date 08/06/2015 Inactive OneTouch Ultra Test strips RxNorm: 1 Miscellaneous daily No Start Date 11/13/2014 Inactive Plavix 75 mg tablet RxNorm: 117648 1 Tablet(s) PO daily No Start Date 06/17/2017 Inactive Lomotil 2.5 mg-0.025 mg tablet RxNorm: 0508243 1 Tablet(s) PO daily as needed No Start Date 10/10/2014 Inactive folic acid 1 mg tablet RxNorm: 546465 1 Tablet(s) PO daily No Start Date 02/06/2015 Inactive amlodipine 5 mg tablet RxNorm: 634548 1 Tablet(s) PO daily No Start Date 10/10/2014 Inactive Imuran 50 mg tablet RxNorm: 381989 1 1/2 (75) Tablet(s) PO daily No Start Date 10/10/2014 Inactive Boniva 3 mg/3 mL intravenous syringe RxNorm: 090959 Milliliter(s) IV No Start Date 07/18/2015 Inactive potassium chloride 20 meq RxNorm: 037574 1 PO TID No Start Date 10/10/2014 Inactive sucralfate 1 gram tablet RxNorm: 591927 1/2 Tablet(s) PO BID 1 hour before meal No Start Date 10/10/2014 Inactive losartan 100 mg tablet RxNorm: 737220 1 Tablet(s) PO daily No Start Date 10/10/2014 Inactive Vitamin D3 2,000 unit tablet RxNorm: 194093 1 Tablet(s) PO daily No Start Date 08/23/2015 Inactive Calcium + D oral RxNorm: 563404 oral No Start Date 08/24/2017 Inactive Prozac 40 mg capsule RxNorm: 020304 1 Capsule(s) PO daily No Start Date 10/10/2014 Inactive timolol 0.5 % eye drops RxNorm: 060371 1 Drop(s) OPH BID No Start Date 12/28/2017 Inactive clonazepam 0.5 mg tablet RxNorm: 186645 2 Tablet(s) PO QHS No Start Date 10/16/2014 Inactive amlodipine 5 mg tablet RxNorm: 438463 1 Tablet(s) PO daily No Start Date 08/22/2015 Inactive pravastatin 80 mg tablet RxNorm: 669053 1 Tablet(s) PO QPM No Start Date 10/10/2014 Inactive Lialda 1.2 gram tablet,delayed release RxNorm: 223751 3 Tablet(s) PO daily No Start Date 07/01/2016 Inactive Alavert 10 mg disintegrating tablet RxNorm: 465096 1 Tablet(s) PO daily as needed No Start Date 08/24/2017 Inactive Medication Administered No Medication Administered data Immunizations Vaccine Codes Date Status Influenza CVX: 141 12/29/2017 completed Pneumococcal (Adult) CVX: 133 02/20/2016 completed Influenza CVX: 141 01/23/2016 completed Assessments Condition Codes Effective Dates Encounter for immunization ICD-10: Z23 ICD-9: V03.82 01/12/2018 Muscle weakness (generalized) ICD-10: M62.81 ICD-9: 728.87 01/12/2018 Essential (primary) hypertension ICD-10: I10 ICD-9: 401.1 01/12/2018 Type 2 diabetes mellitus without complications ICD-10: E11.9 ICD-9: 250.00 01/12/2018 Encounter for general adult medical examination with abnormal findings ICD-10: Z00.01 ICD-9: V70.0 09/17/2017 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 artery ICD- 10: I66.01 ICD-9: 434.10 08/25/2017 Essential (primary) hypertension ICD-10: I10 ICD-9: 401.9 07/21/2017 Mixed hyperlipidemia ICD-10: E78.2 ICD-9: 272.4 02/17/2017 Cerebral infarction, unspecified ICD-10: I63.9 ICD-9: 434.91 12/05/2016 Allergic rhinitis due to pollen ICD-10: J30.1 ICD-9: 477.0 12/05/2016 Gastro-esophageal reflux disease without esophagitis ICD-10 : K21.9 ICD-9: 530.81 12/05/2016 Family history of other endocrine, nutritional and metabolic diseases ICD-10: Z83.49 ICD-9: V18.19 01/23/2016 Encounter for immunization ICD-10: Z23 ICD-9: V04.81 01/23/2016 Other fatigue ICD-10: R53.83 ICD-9: 780.79 01/23/2016 Actinic keratosis ICD-10: L57.0 ICD-9: 702.0 01/23/2016 Abnormal weight gain ICD-10: R63.5 ICD-9: 783.1 01/23/2016 Vitamin D deficiency, unspecified ICD-10: E55.9 ICD-9: 268.9 08/23/2015 Other depressive episodes ICD-10: F32.8 ICD-9: 311 08/23/2015 Encounter for general adult medical examination without abnormal findings ICD-10: Z00.00 ICD-9: V70.0 07/19/2015 Benign paroxysmal vertigo, unspecified ear ICD-10: H81.10 ICD-9: 386.11 04/17/2015 Edema, unspecified ICD-10: R60.9 ICD-9: 782.3 02/06/2015 RESTLESS LEGS SYNDROME ICD-9: 333.94 05/2014 DEPRESSIVE DISORDER NEC ICD-9: 311 2014 HYPERLIPIDEMIA ICD-9: 272.4 12/13/2014 ESSENTIAL HYPERTENSION ICD-9: 401.9 12/13 ESOPHAGEAL REFLUX ICD-9: 530.81 2014 Reason For Visit Reason For Visit [...] Code Item Item Code Result Date %Hba1C Waz468 % HbA1c 15663-7 6.3 % 05/10/2018 %Hba1C Vsj024 Gluc Ave 134 mg/dL 05/10/2018 Hepatic Ydf441 ALBUMIN 4.0 g/dL 05/10/2018 Hepatic Iev965 TPRO 6.6 g/dL 05/10/2018 Hepatic Vhm459 GLOB 2.6 g/dL 05/10/2018 Hepatic Dxm566 A/G Ratio 1.5 Ratio 05/10/2018 Hepatic Qly474 ALK PHOS 39 U/L 05/10/2018 Hepatic Ujq939 ALT(SGPT) 19 U/L 05/10/2018 Hepatic Htw218 AST(SGOT) 28 U/L 05/10/2018 Hepatic Tfb217 BILI T 0.3 mg/dL 05/10/2018 Hepatic Paf648 BILI D 0.1 mg/dL 05/10/2018 Hepatic Zbq174 BILI I 0.2 mg/dL 05/10/2018 Vitamin D 25 Oh Kco7070 VITAMIN D, 25 HYDROXY 28.88 ng/mL C-Reactive Protein Qnt Crqnt CRP 0.2 mg/dl [...] 31.7 pg 04/23/2018 Cbc With Differential Ord2 [place]% 10.1 % 04/23/2018 Cbc With Differential Ord2 [...] 1.17 K/ul 04/23/2018 Cbc With Differential Ord2 [place] ABS# 0.6 K/ul 04/23/2018 Cbc With Differential Ord2 Eos ABS# 0.1 K/ul 04/23/2018 Cbc With Differential Ord2 Baso ABS# 0.0 K/ul 04/23/2018 Sed Rate Ord21 ESR 19 mm/hr 04/23/2018 Comp Metabolic Ohc228 NA 134 mEq/L 04/23/2018 Comp Metabolic Bhc571 K 4.6 mEq/L 04/23/2018 Comp Metabolic Fby071 CL 103 mEq/L 04/23/2018 Comp Metabolic Iwm821 CO2 22.0 mEq/L 04/23/2018 Comp Metabolic Nxz165 ANION GAP 14 04/23/2018 Comp Metabolic Xii787 GLUCOSE 133 mg/dL 04/23/2018 Comp Metabolic Yfn468 Creat 0.9 mg/dL 04/23/2018 Comp Metabolic Lrf956 eGFR 62 ml/min/1.73m2 04/23/2018 Comp Metabolic Ude157 BUN 11 mg/dL 04/23/2018 Comp Metabolic Kls222 B/C Ratio 11.7 Ratio 04/23/2018 Comp Metabolic Ggg425 CALCIUM 9.0 mg/dL 04/23/2018 Comp Metabolic Uew333 ALK PHOS 42 U/L 04/23/2018 Comp Metabolic Lih576 AST(SGOT) 44 U/L 04/23/2018 Comp Metabolic Pzu138 ALT(SGPT) 25 U/L 04/23/2018 Comp Metabolic Eqh850 BILI T 0.4 mg/dL 04/23/2018 Comp Metabolic Gqc469 ALBUMIN 4.2 g/dL 04/23/2018 Comp Metabolic Aqj058 TPRO 6.6 g/dL 04/23/2018 Comp Metabolic Ivn605 GLOB 2.4 g/dL 04/23/2018 Comp Metabolic Nty064 A/G Ratio 1.7 Ratio 04/23/2018 Comp Metabolic Cpt370 Osmo 270 mOsmo 04/23/2018 Vitamin D 25 Oh Wqr7148 VITAMIN D, 25 HYDROXY 29.25 ng/mL Sed Rate Ord21 ESR 8 mm/hr 02/23/2018 Comp Metabolic Dgc970 NA 136 mEq/L 02/23/2018 Comp Metabolic Ktn749 K 4.0 mEq/L 02/23/2018 Comp Metabolic Ajs697 CL 105 mEq/L 02/23/2018 Comp Metabolic Soy653 CO2 20.0 mEq/L 02/23/2018 Comp Metabolic Uwl639 ANION GAP 15 02/23/2018 Comp Metabolic Rmm794 GLUCOSE 129 mg/dL 02/23/2018 Comp Metabolic Hdb555 Creat 0.9 mg/dL 02/23/2018 Comp Metabolic Bdy568 eGFR 66 ml/min/1.73m2 02/23/2018 Comp Metabolic Rtr432 BUN 11 mg/dL 02/23/2018 Comp Metabolic Mnd102 B/C Ratio 12.2 Ratio 02/23/2018 Comp Metabolic Qgc364 CALCIUM 8.6 mg/dL 02/23/2018 Comp Metabolic Nax257 ALK PHOS 43 U/L 02/23/2018 Comp Metabolic Mwm642 AST(SGOT) 33 U/L 02/23/2018 Comp Metabolic Pdy012 ALT(SGPT) 24 U/L 02/23/2018 Comp Metabolic Xhb289 BILI T 0.5 mg/dL 02/23/2018 Comp Metabolic Fsx034 ALBUMIN 4.2 g/dL 02/23/2018 Comp Metabolic Vlc993 TPRO 6.8 g/dL 02/23/2018 Comp Metabolic Dcr309 GLOB 2.6 g/dL 02/23/2018 Comp Metabolic Bqz612 A/G Ratio 1.6 Ratio 02/23/2018 Comp Metabolic Tts798 Osmo 273 mOsmo 02/23/2018 Cbc With Differential Ord2 WBC 5.82 [...] 31.9 pg 02/23/2018 Cbc With Differential Ord2 [place]% 8.8 % 02/23/2018 Cbc With Differential Ord2 [...] 1.24 K/ul 02/23/2018 Cbc With Differential Ord2 [place] ABS# 0.5 K/ul 02/23/2018 Cbc With Differential Ord2 Eos ABS# 0.1 K/ul 02/23/2018 Cbc With Differential Ord2 Baso ABS# 0.0 K/ul 02/23/2018 C-Reactive Protein Qnt Crqnt CRP 0.1 mg/dl 02/23/2018 Hepatic Xji148 ALBUMIN 4.3 g/dL 01/05/2018 Hepatic Fmp388 TPRO 6.7 g/dL 01/05/2018 Hepatic Lgy072 GLOB 2.5 g/dL 01/05/2018 Hepatic Ojr216 A/G Ratio 1.7 Ratio 01/05/2018 Hepatic Dcd731 ALK PHOS 53 U/L 01/05/2018 Hepatic Nmd987 ALT(SGPT) 31 U/L 01/05/2018 Hepatic Ijy645 AST(SGOT) 44 U/L 01/05/2018 Hepatic Dbm990 BILI T 0.4 mg/dL 01/05/2018 Hepatic Qxg379 BILI D 0.1 mg/dL 01/05/2018 Hepatic Ixz484 BILI I 0.3 mg/dL 01/05/2018 Comp Metabolic Vbi265 NA 133 mEq/L 10/20/2017 Comp Metabolic Lbk578 K 4.1 mEq/L 10/20/2017 Comp Metabolic Cge689 CL 103 mEq/L 10/20/2017 Comp Metabolic Zky806 CO2 23.0 mEq/L 10/20/2017 Comp Metabolic Ehd965 ANION GAP 11 10/20/2017 Comp Metabolic Vca872 GLUCOSE 118 mg/dL 10/20/2017 Comp Metabolic Zlc143 Creat 0.9 mg/dL 10/20/2017 Comp Metabolic Yph724 eGFR 64 ml/min/1.73m2 10/20/2017 Comp Metabolic Ent281 BUN 14 mg/dL 10/20/2017 Comp Metabolic Dzp542 B/C Ratio 15.2 Ratio 10/20/2017 Comp Metabolic Zqf793 CALCIUM 8.8 mg/dL 10/20/2017 Comp Metabolic Vuo220 ALK PHOS 43 U/L 10/20/2017 Comp Metabolic Rle136 AST(SGOT) 31 U/L 10/20/2017 Comp Metabolic Zka395 ALT(SGPT) 25 U/L 10/20/2017 Comp Metabolic Unb062 BILI T 0.4 mg/dL 10/20/2017 Comp Metabolic Dxg275 ALBUMIN 4.1 g/dL 10/20/2017 Comp Metabolic Acp501 TPRO 6.6 g/dL 10/20/2017 Comp Metabolic Pja877 GLOB 2.5 g/dL 10/20/2017 Comp Metabolic Uzs015 A/G Ratio 1.6 Ratio 10/20/2017 Comp Metabolic Zpa333 Osmo 268 mOsmo 10/20/2017 Vitamin D 25 Oh Lcy4195 VITAMIN D, 25 HYDROXY 42.65 ng/mL C-Reactive [...] 32.0 pg 10/20/2017 Cbc With Differential Ord2 [place]% 8.6 % 10/20/2017 Cbc With Differential Ord2 [...] 1.16 K/ul 10/20/2017 Cbc With Differential Ord2 [place] ABS# 0.5 K/ul 10/20/2017 Cbc With Differential [...] 70.8 % 07/21/2017 Cbc With Differential Ord2 Lymph% 18.7 % 07/21/2017 Cbc With Differential Ord2 MCV 94.9 fl 07/21/2017 Cbc With Differential Ord2 MCH 32.2 pg 07/21/2017 Cbc With Differential Ord2 [place]% 9.7 % 07/21/2017 Cbc With Differential Ord2 [...] 1.20 K/ul 07/21/2017 Cbc With Differential Ord2 [place] ABS# 0.6 K/ul 07/21/2017 Cbc With Differential Ord2 Eos ABS# 0.0 K/ul 07/21/2017 Cbc With Differential Ord2 Baso ABS# 0.0 K/ul 07/21/2017 Sed Rate Ord21 ESR 14 mm/hr 07/21/2017 Comp Metabolic Lfa274 NA 135 mEq/L 07/21/2017 Comp Metabolic Azk187 K 4.5 mEq/L 07/21/2017 Comp Metabolic Byj960 CL 101 mEq/L 07/21/2017 Comp Metabolic Mor505 CO2 26.0 mEq/L 07/21/2017 Comp Metabolic Sgv251 ANION GAP 13 07/21/2017 Comp Metabolic Fyp405 GLUCOSE 97 mg/dL 07/21/2017 Comp Metabolic Fya655 Creat 0.9 mg/dL 07/21/2017 Comp Metabolic Yyt022 eGFR 66 ml/min/1.73m2 07/21/2017 Comp Metabolic Vju191 BUN 13 mg/dL 07/21/2017 Comp Metabolic Iow237 B/C Ratio 14.4 Ratio 07/21/2017 Comp Metabolic Ayk405 CALCIUM 9.2 mg/dL 07/21/2017 Comp Metabolic Rmi541 ALK PHOS 46 U/L 07/21/2017 Comp Metabolic Mot102 AST(SGOT) 31 U/L 07/21/2017 Comp Metabolic Qfb792 ALT(SGPT) 19 U/L 07/21/2017 Comp Metabolic Jew418 BILI T 0.5 mg/dL 07/21/2017 Comp Metabolic Rao312 ALBUMIN 4.5 g/dL 07/21/2017 Comp Metabolic Hxk605 TPRO 7.2 g/dL 07/21/2017 Comp Metabolic Dpw087 GLOB 2.7 g/dL 07/21/2017 Comp Metabolic Abp520 A/G Ratio 1.7 Ratio 07/21/2017 Comp Metabolic Gvt382 Osmo 270 mOsmo 07/21/2017 Vitamin D 25 Oh Nol9243 VITAMIN D, 25 HYDROXY 31.39 ng/mL C-Reactive [...] 31.9 pg 04/14/2017 Cbc With Differential Ord2 [place]% 9.1 % 04/14/2017 Cbc With Differential Ord2 [...] 1.47 K/ul 04/14/2017 Cbc With Differential Ord2 [place] ABS# 0.7 K/ul 04/14/2017 Cbc With Differential Ord2 Eos ABS# 0.0 K/ul 04/14/2017 Cbc With Differential Ord2 Baso ABS# 0.0 K/ul 04/14/2017 Comp Metabolic Osj998 NA 136 mEq/L 04/14/2017 Comp Metabolic Vcj725 K 4.4 mEq/L 04/14/2017 Comp Metabolic Dwi534 CL 104 mEq/L 04/14/2017 Comp Metabolic Izn583 CO2 21.0 mEq/L 04/14/2017 Comp Metabolic Tbu897 ANION GAP 15 04/14/2017 Comp Metabolic Kpg661 GLUCOSE 112 mg/dL 04/14/2017 Comp Metabolic Fnc494 Creat 1.1 mg/dL 04/14/2017 Comp Metabolic Wpe732 eGFR 51 ml/min/1.73m2 04/14/2017 Comp Metabolic Uiq691 BUN 16 mg/dL 04/14/2017 Comp Metabolic Yzd110 B/C Ratio 14.3 Ratio 04/14/2017 Comp Metabolic Zvq976 CALCIUM 8.9 mg/dL 04/14/2017 Comp Metabolic Ekg383 ALK PHOS 39 U/L 04/14/2017 Comp Metabolic Fqm129 AST(SGOT) 24 U/L 04/14/2017 Comp Metabolic Civ941 ALT(SGPT) 18 U/L 04/14/2017 Comp Metabolic Mrq214 BILI T 0.5 mg/dL 04/14/2017 Comp Metabolic Glo967 ALBUMIN 4.3 g/dL 04/14/2017 Comp Metabolic Fmk379 TPRO 6.8 g/dL 04/14/2017 Comp Metabolic Jfh561 GLOB 2.5 g/dL 04/14/2017 Comp Metabolic Yna493 A/G Ratio 1.7 Ratio 04/14/2017 Comp Metabolic Yny195 Osmo 274 mOsmo 04/14/2017 Vitamin D 25 Oh Ooz9912 VITAMIN D, 25 HYDROXY 29.88 ng/mL Sed Rate Ord21 ESR 15 mm/hr 04/14/2017 C-Reactive Protein Qnt Crqnt CRP 0.1 mg/dl 04/14/2017 Sed Rate Ord21 ESR 16 mm/hr 02/09/2017 Vitamin D 25 Oh Rwf1927 VITAMIN D, 25 HYDROXY 36.00 ng/mL Cbc With Differential Ord2 WBC 7.27 K/ul [...] 32.5 pg 02/09/2017 Cbc With Differential Ord2 [place]% 8.7 % 02/09/2017 Cbc With Differential Ord2 [...] 1.06 K/ul 02/09/2017 Cbc With Differential Ord2 Concho ABS# 0.6 K/ul 02/09/2017 Cbc With Differential Ord2 Eos ABS# 0.0 K/ul 02/09/2017 Cbc With Differential Ord2 Baso ABS# 0.0 K/ul 02/09/2017 Comp Metabolic Iyj336 NA 135 mEq/L 02/09/2017 Comp Metabolic Eht983 K 4.4 mEq/L 02/09/2017 Comp Metabolic Qwt470 CL 102 mEq/L 02/09/2017 Comp Metabolic Svg123 CO2 23.0 mEq/L 02/09/2017 Comp Metabolic Eag549 ANION GAP 14 02/09/2017 Comp Metabolic Zgp749 GLUCOSE 98 mg/dL 02/09/2017 Comp Metabolic Dov544 Creat 0.9 mg/dL 02/09/2017 Comp Metabolic Gvl146 eGFR 65 ml/min/1.73m2 02/09/2017 Comp Metabolic Lux446 BUN 18 mg/dL 02/09/2017 Comp Metabolic Cwh267 B/C Ratio 19.8 Ratio 02/09/2017 Comp Metabolic Poq566 CALCIUM 9.2 mg/dL 02/09/2017 Comp Metabolic Jsz470 ALK PHOS 42 U/L 02/09/2017 Comp Metabolic Ycq678 AST(SGOT) 24 U/L 02/09/2017 Comp Metabolic Jxx800 ALT(SGPT) 16 U/L 02/09/2017 Comp Metabolic Dad499 BILI T 0.4 mg/dL 02/09/2017 Comp Metabolic Uhn891 ALBUMIN 4.4 g/dL 02/09/2017 Comp Metabolic Qba056 TPRO 7.0 g/dL 02/09/2017 Comp Metabolic Rgp018 GLOB 2.6 g/dL 02/09/2017 Comp Metabolic Awb123 A/G Ratio 1.7 Ratio 02/09/2017 Comp Metabolic Xhd801 Osmo 272 mOsmo 02/09/2017 C-Reactive Protein Qnt Crqnt CRP 0.1 mg/dl 02/09/2017 %Hba1C Bcb552 % HbA1c 42082-9 6.1 % 05/20/2016 %Hba1C Gui309 Gluc Ave 128 mg/dL 05/20/2016 Lipid Ord30 CHOL 212 mg/dL 05/20/2016 Lipid Ord30 HDL 52.0 mg/dl 05/20/2016 Lipid Ord30 TRIG 149 mg/dL 05/20/2016 Lipid Ord30 LDL 130 mg/dL 05/20/2016 Lipid Ord30 C/HDL 4.1 Ratio 05/20/2016 Vitamin D 25 Oh Dpo5019 VITAMIN D, 25 HYDROXY 51.65 ng/mL Comp Metabolic Jxz486 NA 134 mEq/L 04/21/2016 Comp Metabolic Wvo644 K 5.0 mEq/L 04/21/2016 Comp Metabolic Gzk935 CL 103 mEq/L 04/21/2016 Comp Metabolic Gwt518 CO2 24.0 mEq/L 04/21/2016 Comp Metabolic Abl402 ANION GAP 12 04/21/2016 Comp Metabolic Tpj941 GLUCOSE 122 mg/dL 04/21/2016 Comp Metabolic Qmd423 Creat 1.1 mg/dL 04/21/2016 Comp Metabolic Ywh975 eGFR 52 ml/min/1.73m2 04/21/2016 Comp Metabolic Nov725 BUN 24 mg/dL 04/21/2016 Comp Metabolic Akz206 B/C Ratio 21.6 Ratio 04/21/2016 Comp Metabolic Qth957 CALCIUM 9.7 mg/dL 04/21/2016 Comp Metabolic Uju584 ALK PHOS 51 U/L 04/21/2016 Comp Metabolic Oea079 AST(SGOT) 23 U/L 04/21/2016 Comp Metabolic Qmd566 ALT(SGPT) 17 U/L 04/21/2016 Comp Metabolic Jyh408 BILI T 0.5 mg/dL 04/21/2016 Comp Metabolic Fzj443 ALBUMIN 4.4 g/dL 04/21/2016 Comp Metabolic For281 TPRO 7.3 g/dL 04/21/2016 Comp Metabolic Sie406 GLOB 2.9 g/dL 04/21/2016 Comp Metabolic Zal941 A/G Ratio 1.5 Ratio 04/21/2016 Comp Metabolic Xla670 Osmo 274 mOsmo 04/21/2016 Cbc With Differential [...] 32.0 pg 04/21/2016 Cbc With Differential Ord2 Concho% 9.1 % 04/21/2016 Cbc With Differential Ord2 [...] 1.39 K/ul 04/21/2016 Cbc With Differential Ord2 Concho ABS# 0.6 K/ul 04/21/2016 Cbc With Differential Ord2 Eos ABS# 0.1 K/ul 04/21/2016 Cbc With Differential Ord2 Baso ABS# 0.0 K/ul 04/21/2016 Bili D Ord93 BILI D 0.1 mg/dL 04/21/2016 Bili D Ord93 BILI I 0.4 mg/dL 04/21/2016 Sed Rate Ord21 ESR 26 mm/hr 04/21/2016 C-Reactive Protein Qnt Crqnt CRP 0.1 mg/dl 04/21/2016 Comp Metabolic Byc715 NA 133 mEq/L 03/18/2016 Comp Metabolic Rph890 K 4.9 mEq/L 03/18/2016 Comp Metabolic Hnq151 CL 102 mEq/L 03/18/2016 Comp Metabolic Vbe105 CO2 25.0 mEq/L 03/18/2016 Comp Metabolic Pog854 ANION GAP 11 03/18/2016 Comp Metabolic Jph119 GLUCOSE 114 mg/dL 03/18/2016 Comp Metabolic Jxh339 Creat 1.1 mg/dL 03/18/2016 Comp Metabolic Epr786 eGFR 54 ml/min/1.73m2 03/18/2016 Comp Metabolic Ajx175 BUN 23 mg/dL 03/18/2016 Comp Metabolic Ezy452 B/C Ratio 21.3 Ratio 03/18/2016 Comp Metabolic Ihr077 CALCIUM 9.7 mg/dL 03/18/2016 Comp Metabolic Rex902 ALK PHOS 54 U/L 03/18/2016 Comp Metabolic Zxx347 AST(SGOT) 21 U/L 03/18/2016 Comp Metabolic Tth863 ALT(SGPT) 15 U/L 03/18/2016 Comp Metabolic Lga031 BILI T 0.4 mg/dL 03/18/2016 Comp Metabolic Ckg020 ALBUMIN 4.4 g/dL 03/18/2016 Comp Metabolic Ndg894 TPRO 7.4 g/dL 03/18/2016 Comp Metabolic Nmx164 GLOB 3.0 g/dL 03/18/2016 Comp Metabolic Xaq986 A/G Ratio 1.5 Ratio 03/18/2016 Comp Metabolic Vxl924 Osmo 271 mOsmo 03/18/2016 Vitamin D 25 Oh Wpn0960 VITAMIN D, 25 HYDROXY 46.10 ng/mL Sed Rate Ord21 ESR 26 mm/hr 02/13/2016 Comp Metabolic Uxw282 NA 133 mEq/L 02/13/2016 Comp Metabolic Cty262 K 4.8 mEq/L 02/13/2016 Comp Metabolic Fmb977 CL 104 mEq/L 02/13/2016 Comp Metabolic Mvf561 CO2 23.0 mEq/L 02/13/2016 Comp Metabolic Pba555 ANION GAP 11 02/13/2016 Comp Metabolic Kpr848 GLUCOSE 104 mg/dL 02/13/2016 Comp Metabolic Gmy354 Creat 1.0 mg/dL 02/13/2016 Comp Metabolic Rsj549 eGFR 56 ml/min/1.73m2 02/13/2016 Comp Metabolic Vwg171 BUN 25 mg/dL 02/13/2016 Comp Metabolic Rbk148 B/C Ratio 24.0 Ratio 02/13/2016 Comp Metabolic Ncj140 CALCIUM 9.1 mg/dL 02/13/2016 Comp Metabolic Voe047 ALK PHOS 43 U/L 02/13/2016 Comp Metabolic Moh660 AST(SGOT) 21 U/L 02/13/2016 Comp Metabolic Lgw962 ALT(SGPT) 17 U/L 02/13/2016 Comp Metabolic Gyg273 BILI T 0.4 mg/dL 02/13/2016 Comp Metabolic Gxh010 ALBUMIN 4.3 g/dL 02/13/2016 Comp Metabolic Pht978 TPRO 7.1 g/dL 02/13/2016 Comp Metabolic Rxz228 GLOB 2.9 g/dL 02/13/2016 Comp Metabolic Bod636 A/G Ratio 1.5 Ratio 02/13/2016 Comp Metabolic Sgf448 Osmo 271 mOsmo 02/13/2016 C-Reactive Protein Qnt [...] 93.5 fl 02/13/2016 Cbc With Differential Ord2 MCH 31.6 pg 02/13/2016 Cbc With Differential Ord2 Concho% 9.7 % 02/13/2016 Cbc With Differential Ord2 [...] 1.17 K/ul 02/13/2016 Cbc With Differential Ord2 Concho ABS# 0.6 K/ul 02/13/2016 Cbc With Differential Ord2 Eos ABS# 0.1 K/ul 02/13/2016 Cbc With Differential Ord2 Baso ABS# 0.0 K/ul 02/13/2016 C-Reactive Protein Qnt Crqnt CRP 1.0 mg/dl 10/08/2015 Vitamin D 25 Oh Bhn1978 VITAMIN D, 25 HYDROXY 54.28 ng/mL Sed Rate Ord21 ESR 20 mm/hr 10/08/2015 Cbc With Differential Ord2 WBC 7.45 [...] 31.4 pg 10/08/2015 Cbc With Differential Ord2 Concho% 10.5 % 10/08/2015 Cbc With Differential Ord2 Eos% 0.4 % 10/08/2015 Cbc With Differential Ord2 MCHC 32.7 pg 10/08/2015 Cbc With Differential Ord2 Baso% 0.3 % 10/08/2015 Cbc With Differential Ord2 PLT 189 K/ul 10/08/2015 Cbc With Differential Ord2 RDW 13.2 % 10/08/2015 Cbc With Differential Ord2 Neut ABS# 5.38 K/ul 10/08/2015 Cbc With Differential Ord2 Lymph ABS# 1.24 K/ul 10/08/2015 Cbc With Differential Ord2 Concho ABS# 0.8 K/ul 10/08/2015 Cbc With Differential Ord2 Eos ABS# 0.0 K/ul 10/08/2015 Cbc With Differential Ord2 Baso ABS# 0.0 K/ul 10/08/2015 Comp Metabolic Cvx108 NA 132 mEq/L 10/08/2015 Comp Metabolic Lfu638 K 4.7 mEq/L 10/08/2015 Comp Metabolic Oxd483 CL 101 mEq/L 10/08/2015 Comp Metabolic Znc754 CO2 24.0 mEq/L 10/08/2015 Comp Metabolic Zwg649 ANION GAP 12 10/08/2015 Comp Metabolic Qkj885 GLUCOSE 85 mg/dL 10/08/2015 Comp Metabolic Fft904 Creat 0.9 mg/dL 10/08/2015 Comp Metabolic Esw839 eGFR 66 ml/min/1.73m2 10/08/2015 Comp Metabolic Qss562 BUN 29 mg/dL 10/08/2015 Comp Metabolic Hqu804 B/C Ratio 32.2 Ratio 10/08/2015 Comp Metabolic Qiq389 CALCIUM 9.1 mg/dL 10/08/2015 Comp Metabolic Gqq936 ALK PHOS 40 U/L 10/08/2015 Comp Metabolic Hbd861 AST(SGOT) 18 U/L 10/08/2015 Comp Metabolic Vhw847 ALT(SGPT) 14 U/L 10/08/2015 Comp Metabolic Gcy217 BILI T 0.3 mg/dL 10/08/2015 Comp Metabolic Thu001 ALBUMIN 4.1 g/dL 10/08/2015 Comp Metabolic Lpb646 TPRO 6.8 g/dL 10/08/2015 Comp Metabolic Psi927 GLOB 2.7 g/dL 10/08/2015 Comp Metabolic Bru752 A/G Ratio 1.5 Ratio 10/08/2015 Comp Metabolic Ijk942 Osmo 270 mOsmo 10/08/2015 Tsh Ord6 hTSH II 1.72 uIU/mL 09/26/2015 Free T4 Orz651 FREE T4 0.80 ng/dL 09/26/2015 Comp Metabolic Mrl093 NA 133 mEq/L 08/06/2015 Comp Metabolic Dcu453 K 4.6 mEq/L 08/06/2015 Comp Metabolic Upe087 CL 102 mEq/L 08/06/2015 Comp Metabolic Aan146 CO2 24.0 mEq/L 08/06/2015 Comp Metabolic Apc335 ANION GAP 12 08/06/2015 Comp Metabolic Rak081 GLUCOSE 105 mg/dL 08/06/2015 Comp Metabolic Bhl733 Creat 1.0 mg/dL 08/06/2015 Comp Metabolic Lbm505 eGFR 60 ml/min/1.73m2 08/06/2015 Comp Metabolic Aad886 BUN 28 mg/dL 08/06/2015 Comp Metabolic Ulg359 B/C Ratio 28.6 Ratio 08/06/2015 Comp Metabolic Jgw698 CALCIUM 9.2 mg/dL 08/06/2015 Comp Metabolic Mrj783 ALK PHOS 42 U/L 08/06/2015 Comp Metabolic Hvw750 AST(SGOT) 20 U/L 08/06/2015 Comp Metabolic Yky336 ALT(SGPT) 16 U/L 08/06/2015 Comp Metabolic Sbh251 BILI T 0.3 mg/dL 08/06/2015 Comp Metabolic Jms238 ALBUMIN 4.3 g/dL 08/06/2015 Comp Metabolic Qog174 TPRO 6.9 g/dL 08/06/2015 Comp Metabolic Ior033 GLOB 2.7 g/dL 08/06/2015 Comp Metabolic Rhw457 A/G Ratio 1.6 Ratio 08/06/2015 Comp Metabolic Usu267 Osmo 272 mOsmo 08/06/2015 C-Reactive Protein Qnt Crqnt CRP 0.00 mg/dl 08/06/2015 Vitamin D 25 Oh Whl1426 VITAMIN D, 25 HYDROXY 36.25 ng/mL Cbc [...] 31.7 pg 08/06/2015 Cbc With Differential Ord2 Concho% 8.9 % 08/06/2015 Cbc With Differential Ord2 [...] 1.31 K/ul 08/06/2015 Cbc With Differential Ord2 Concho ABS# 0.6 K/ul 08/06/2015 Cbc With Differential Ord2 Eos ABS# 0.0 K/ul 08/06/2015 Cbc With Differential Ord2 Baso ABS# 0.0 K/ul 08/06/2015 Cbc With Differential Ord2 New Analyzer Notice Please note new ref ranges starting 04-25-2015 due to implemntation of new five part differential hematolgy analyzer. 08/06/2015 Sed Rate Ord21 ESR 17 mm/hr 08/06/2015 Vitamin D 25 Oh Yqt6436 VITAMIN D, 25 HYDROXY 47.62 ng/mL C-Reactive Protein Qnt Crqnt CRP 0.00 mg/dl 04/04/2015 Bili D Ord93 BILI D 0.1 mg/dL 04/04/2015 Bili D Ord93 BILI I 0.4 mg/dL 04/04/2015 %Hba1C Ari586 % HbA1c 64968-0 5.7 % 04/04/2015 %Hba1C Egt249 Gluc Ave 117 mg/dL 04/04/2015 Cbc With Differential Ord2 WBC 5.1 [...] With Differential Ord2 RDW 13.0 % 04/04/2015 Lipid Ord30 CHOL 214 mg/dL 04/04/2015 Lipid Ord30 HDL 61.0 mg/dl 04/04/2015 Lipid Ord30 TRIG 155 mg/dL 04/04/2015 Lipid Ord30 LDL 122 mg/dL 04/04/2015 Lipid Ord30 C/HDL 3.5 Ratio 04/04/2015 Comp Metabolic Yoq976 NA 132 mEq/L 04/04/2015 Comp Metabolic Fyj501 K 4.6 mEq/L 04/04/2015 Comp Metabolic Ksm965 CL 100 mEq/L 04/04/2015 Comp Metabolic Qqw106 CO2 22.0 mEq/L 04/04/2015 Comp Metabolic Axp695 ANION GAP 15 04/04/2015 Comp Metabolic Ejb411 GLUCOSE 118 mg/dL 04/04/2015 Comp Metabolic Wjj489 Creat 1.0 mg/dL 04/04/2015 Comp Metabolic Vhv213 eGFR 60 ml/min/1.73m2 04/04/2015 Comp Metabolic Vwg044 BUN 18 mg/dL 04/04/2015 Comp Metabolic Apa684 B/C Ratio 18.4 Ratio 04/04/2015 Comp Metabolic Kgv162 CALCIUM 9.6 mg/dL 04/04/2015 Comp Metabolic Tff559 ALK PHOS 63 U/L 04/04/2015 Comp Metabolic Ums157 AST(SGOT) 17 U/L 04/04/2015 Comp Metabolic Pvk220 ALT(SGPT) 13 U/L 04/04/2015 Comp Metabolic Pja176 BILI T 0.5 mg/dL 04/04/2015 Comp Metabolic Axa632 ALBUMIN 4.6 g/dL 04/04/2015 Comp Metabolic Vey831 TPRO 7.4 g/dL 04/04/2015 Comp Metabolic Mdh396 GLOB 2.8 g/dL 04/04/2015 Comp Metabolic Jho067 A/G Ratio 1.6 Ratio 04/04/2015 Comp Metabolic Ixm243 Osmo 268 mOsmo 04/04/2015 Sed Rate Ord21 ESR 16 mm/hr 04/04/2015 %Hba1C Tln090 % HbA1c 67015-8 5.9 % 11/28/2014 %Hba1C Jnk824 Gluc Ave 123 mg/dL 11/28/2014 Cbc With [...] Rate Ord21 ESR 19 mm/hr 11/27/2014 Hepatic Kwb968 ALBUMIN 4.4 g/dL 11/27/2014 Hepatic Xud174 TPRO 7.0 g/dL 11/27/2014 Hepatic Phq588 GLOB 2.6 g/dL 11/27/2014 Hepatic Gfm257 A/G Ratio 1.7 Ratio 11/27/2014 Hepatic Hop563 ALK PHOS 63 U/L 11/27/2014 Hepatic Vob716 ALT(SGPT) 14 U/L 11/27/2014 Hepatic Fmy048 AST(SGOT) 19 U/L 11/27/2014 Hepatic Ucs911 BILI T 0.4 mg/dL 11/27/2014 Hepatic Qnw389 BILI D 0.1 mg/dL 11/27/2014 Hepatic Vdh684 BILI I 0.3 mg/dL 11/27/2014 Lipid Ord30 [...] Formatting Model/CDA Sections, Assigned to/Tabitha Velasquez CPT-4: 48394Lwqwnos 12/29/2017 PPPS, SUBSEQ VISIT CPT -4: G0439 09/17/2017 PPPS, SUBSEQ VISIT CPT -4: G0439 08/21/2016 PNEUMOCOCCAL VACC [address]: 59287614 CPT-4: 51943 02/20/2016 ADMIN PNEUMOCOCCAL VACCINE SNOMED CT: 73285451 CPT-4: G0009 02/20/2016 ADMIN INFLUENZA VIRUS VAC CPT-4: G0008 01/23/2016 FLU VACC 4 KATIE 3 YRS PLUS IM SNOMED CT: 29845457 CPT-4: 91949 01/23/2016 PPPS, SUBSEQ VISIT CPT -4: G0439 07/19/2015 Vital Signs Date Vital 01/12/2018 Blood Pressure 1: 124/70 Code : 8480-6 BMI: 30.2 Code : 79217-8 Heart Rate 1 : 59 bpm Height: 5'1" SpO2: 98% Weight: 160 lbs 12/29/2017 Blood Pressure 1: 148/82 Code : 8480-6 BMI: 30.4 Code : 53748-1 Heart Rate 1 : 60 bpm Height: 5'1" SpO2: 99% Weight: 161 lbs 09/17/2017 Height: Weight: 08/25/2017 Blood Pressure 1: 130/72 Code : 8480-6 BMI: 29.9 Code : 89186-3 Heart Rate 1 : 70 bpm Height: 5'1" SpO2: 93% Weight: 158 lbs 07/21/2017 Blood Pressure 1: 150/84 Code : 8480-6 BMI: 29.5 Code : 50788-0 Heart Rate 1 : 62 bpm Height: 5'1" SpO2: 98% Weight: 156 lbs 06/17/2017 Blood Pressure 1: 148/86 Code : 8480-6 BMI: 29.5 Code : 99612-0 Heart Rate 1 : 64 bpm Height: 5'1" SpO2: 98% Weight: 156 lbs 02/17/2017 Blood Pressure 1: 144/86 Code : 8480-6 BMI: 28.7 Code : 17452-3 Heart Rate 1 : 64 bpm Height: 5'1" SpO2: 96% Weight: 152 lbs 01/02/2017 Blood Pressure 1: 132/78 Code : 8480-6 BMI: 28.3 Code : 06691-8 Heart Rate 1 : 71 bpm Height: 5'1" SpO2: 97% Weight: 150 lbs 12/05/2016 Blood Pressure 1: 140/76 Code : 8480-6 BMI: 29.5 Code : 71712-4 Heart Rate 1 : 66 bpm Height: 5'1" SpO2: 98% Weight: 156 lbs 08/21/2016 Blood Pressure 1: 142/78 Code : 8480-6 BMI: 29.9 Code : 39751-7 Heart Rate 1 : 62 bpm Height: 5'1" SpO2: 98% Waist Measure (cm): 79 cm Weight: 158 lbs 08/19/2016 Blood Pressure 1: 142/78 Code : 8480-6 BMI: 29.9 Code : 06726-4 Heart Rate 1 : 62 bpm Height: 5'1" SpO2: 98% Weight: 158 lbs 05/20/2016 Blood Pressure 1: 152/76 Code : 8480-6 Blood Pressure 1: 144/80 Code: 8480-6 BMI: 29.3 Code: 72121-3 Heart Rate 1: 60 bpm Height: 5'1" SpO2: 95% Weight: 155 lbs 01/23/2016 Blood Pressure 1: 138/78 Code : 8480-6 BMI: 29.7 Code : 16073-2 Heart Rate 1 : 64 bpm Height: 5'1" SpO2: 98% Weight: 157 lbs 09/26/2015 Blood Pressure 1: 136/76 Code : 8480-6 BMI: 28.3 Code : 82250-2 Heart Rate 1 : 70 bpm Height: 5'1" SpO2: 98% Weight: 150 lbs 08/23/2015 Blood Pressure 1: 126/78 Code : 8480-6 BMI: 27.8 Code : 13656-9 Heart Rate 1 : 68 bpm Height: 5'1" SpO2: 97% Weight: 147 lbs 07/19/2015 Blood Pressure 1: 146/70 Code : 8480-6 BMI: 26.8 Code : 23975-3 Heart Rate 1 : 58 bpm Height: 5'1" SpO2: 96% Waist Measure (cm): 84 cm Weight: 142 lbs 04/17/2015 Blood Pressure 1: 132/62 Code : 8480-6 BMI: 25.3 Code : 41583-7 Heart Rate 1 : 98 bpm Height: 5'1" SpO2: 97% Weight: 134 lbs 03/15/2015 Blood Pressure 1: 158/72 Code : 8480-6 Blood Pressure 1: 160/70 Code: 8480-6 BMI: 25.5 Code: 23743-7 Heart Rate 1: 74 bpm Heart Rate 1: 72 bpm Height: 5'1" Height: SpO2: 98% Weight: 135 lbs Weight: 02/06/2015 Blood Pressure 1: 142/82 Code : 8480-6 BMI: 25.5 Code : 66349-3 Heart Rate 1 : 82 bpm Height: 5'1" SpO2: 96% Weight: 135 lbs 12/13/2014 Blood Pressure 1: 136/64 Code : 8480-6 BMI: 24.9 Code : 24997-7 Heart Rate 1 : 86 bpm Height: 5'1" SpO2: 95% Weight: 132 lbs 10/11/2014 Blood Pressure 1: 140/80 Code : 8480-6 BMI: 25.1 Code : 99548-5 Heart Rate 1 : 72 bpm Height: [...] Present Encounters Encounter Performer Location Codes Date ([id number]) [id number] EST. PATIENT, LEVEL III Diagnosis: Essential (primary) hypertension[ICD10: I10] Diagnosis: Type 2 diabetes mellitus without complications[ICD10: E11.9] Diagnosis: Encounter for immunization[ICD10: Z23] Diagnosis: Muscle weakness (generalized)[ICD10: M62.81] [facility] CPT-4: 97928 01/12/2018 ([id number]) [id number] EST. PATIENT, LEVEL IV Diagnosis: Essential (primary) hypertension[ICD10: I10] Diagnosis: Type 2 diabetes mellitus without complications[ICD10: E11.9] Diagnosis: Encounter for immunization[ICD10: Z23] Diagnosis: Muscle weakness (generalized)[ICD10: M62.81] [facility] CPT-4: 44322 12/29/2017 ([id number]) 64656 EST. 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 PATIENT, LEVEL IV Diagnosis: Essential (primary) hypertension[ICD10: I10] Diagnosis: 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 artery[ICD10: I66.01 ] Maria Luisa Echeverria MD [facility] CPT-4: 33160 07/21/2017 ([id number]) 24544 EST. PATIENT, LEVEL IV Diagnosis: Essential (primary) hypertension[ICD10: I10] Diagnosis: Type 2 diabetes mellitus without complications[ICD10: E11.9] Diagnosis: 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 artery[ICD10: I66.01 ] Maria Luisa Echeverria MD [facility] CPT-4: 74322 06/17/2017 ([id number]) 30800 EST. PATIENT, LEVEL IV Diagnosis: Essential (primary) hypertension[ICD10: I10] Diagnosis: Muscle weakness (generalized)[ICD10: M62.81] Diagnosis: Mixed hyperlipidemia[ICD10: E78.2] Maria Luisa Echeverria MD, [facility] CPT-4: 15861 02/17/2017 ([id number]) 03513 EST. PATIENT, LEVEL III Diagnosis: Essential (primary) hypertension[ICD10: I10] Diagnosis: Muscle weakness (generalized)[ICD10: M62.81] Diamond Echeverria MD, [facility] CPT-4: 47040 01/02/2017 [id number]) [id number] EST. PATIENT, LEVEL IV Diagnosis: Muscle weakness (generalized)[ICD10: M62.81] Diagnosis: Cerebral infarction, unspecified[ICD10: I63.9] Diagnosis: Essential (primary) hypertension[ICD10: I10] Diagnosis: Gastro-esophageal reflux disease without esophagitis[ICD10: K21.9] Diagnosis: Allergic rhinitis due to pollen[ICD10: J30.1] Diamond Echeverria MD, [facility] CPT-4: 98199 12/05/2016 ([id number]) 28884 EST. PATIENT, LEVEL IV Diagnosis: Essential (primary) hypertension[ICD10: I10] Diagnosis: Type 2 diabetes mellitus without complications[ICD10: E11.9] Maria Luisa Echeverria MD [facility] CPT-4: 33768 08/19/2016 [id number] EST. PATIENT, LEVEL IV Diagnosis: Essential (primary) hypertension[ICD10: I10] Diagnosis: Type 2 diabetes mellitus without complications[ICD10: E11.9] Diagnosis: Mixed hyperlipidemia[ICD10: E78.2] Ashley Echeverria MD, [facility] CPT-4: 91206 05/20/2016 [id number]) 33732 EST. PATIENT, LEVEL IV Diagnosis: Type 2 diabetes mellitus without complications[ICD10: E11.9] Diagnosis: Family history of other endocrine, nutritional and metabolic diseases [ICD10: Z83.49] Diagnosis: Other fatigue[ICD10: R53.83] Diagnosis: Abnormal weight gain[ICD10: R63.5] Diagnosis: Actinic keratosis[ICD10: L57.0] Maria Luisa Echeverria MD, [facility] CPT- 4: 85323 01/23/2016 [id number]) 46802 EST. PATIENT, LEVEL IV Diagnosis: Family history of other endocrine, nutritional and metabolic diseases [ICD10: Z83.49] Diagnosis: Other fatigue[ICD10: R53.83] Diagnosis: Abnormal weight gain[ICD10: R63.5] Diagnosis: Actinic keratosis[ICD10: L57.0] Diagnosis: Type 2 diabetes mellitus without complications[ICD10: E11.9] Maria Luisa Echeverria MD [facility] CPT-4: 87112 09/26/2015 [id number]) 01317 EST. PATIENT, LEVEL IV Diagnosis: Essential (primary) hypertension[ICD10: I10] Diagnosis: Type 2 diabetes mellitus without complications[ICD10: E11.9] Diagnosis: Other depressive episodes[ICD10: F32.8] Diagnosis: Vitamin D deficiency, unspecified[ICD10: E55.9] Maria Luisa Echeverria MD [facility] CPT-4: 75372 08/23/2015 [id number]) 79880 EST. PATIENT, LEVEL IV Diagnosis: Essential (primary) hypertension[ICD10: I10] Diagnosis: Benign paroxysmal vertigo, unspecified ear[ICD10: H81.10] Diagnosis: Type 2 diabetes mellitus without complications[ICD10: E11.9] Maria Luisa Echeverria MD, [facility] CPT-4: 59522 04/17/2015 [id number] EST. PATIENT, LEVEL III Diagnosis: Essential (primary) hypertension[ICD10: I10] Diagnosis: Benign paroxysmal vertigo, unspecified ear[ICD10: H81.10] Diamond Echeverria MD , [facility] CPT-4: 03738 03/15/2015 ([id number]) 31949 EST. PATIENT, LEVEL III Diagnosis: Essential (primary) hypertension[ICD10: I10] Diagnosis: Edema, unspecified[ICD10: R60.9] Diamond Echeverria MD, [facility] CPT-4: 75725 02/06/2015 ([id number]) 44902 EST. PATIENT, LEVEL IV Diagnosis: ESSENTIAL HYPERTENSION[ICD9: 401.9] Diagnosis: HYPERLIPIDEMIA[ICD9: 272.4] Diagnosis: DEPRESSIVE DISORDER NEC[ICD9: 311] Diagnosis: ESOPHAGEAL REFLUX[ICD9: 530.81] Diagnosis: RESTLESS LEGS SYNDROME[ICD9: 333.94] Maria Luisa Echeverria MD, [facility] CPT-4: 38567 12/13/2014 ([id number]) OFFICE VISIT, NEW - LEVEL 4 Diagnosis: ESSENTIAL HYPERTENSION[ICD9: 401.9] Diagnosis: HYPERLIPIDEMIA[ICD9: 272.4] Diagnosis: DEPRESSIVE DISORDER NEC[ICD9: 311] Diagnosis: ESOPHAGEAL REFLUX[ICD9: 530.81] Diagnosis: RESTLESS LEGS SYNDROME[ICD9: 333.94] Maria Luisa Echeverria MD, [facility] CPT-4: 27577 10/11/2014 Plan of Care Planned Activity Notes Codes Status Date Visit Plan: Hypertension - improved control - continue with current medications, continue with no added salt diet. Pt has been encouraged to exercise daily. The pt has been advised to call the office if there are any acute concerns about change in blood pressure readings at home. 01/12/2018 Appointment: Maria Luisa Echeverria WPtel: [address] [place], [place] [phone] (15 min) Moderate 01/12/2018 Patient Education: Patient [...] deficiency 12/29/2017 Appointment: Maria Luisa Echeverria [facility]Ptel[facility] (15 min) Moderate 12/29/2017 Patient Education: [...] 08/25/2017 Appointment: [facility]verria [facility] [phone] [facility] (15 min) Moderate 08/25/2017 Patient Education: [...] 07/21/2017 Appointment: [facility] [phone] [facility] (15 min) Moderate 07/21/2017 Patient Education: Patient Medication Summary Completed 07/21/2017 Visit Plan: Right Middle Cerebral artery stroke - appt with neurology with Dr. Macario at Neurology. Gait instability - appt with out physical therapy Hypertension - stable - continue with current treatment - monitor symptoms DM - diet controlled - 06/17/2017 Appointment: Maria Luisa Echeverria [facility] [phone] [facility] [place] (15 min) Moderate 06/17/2017 Patient Education: [...] Maria Luisa Echeverria WPtel[facility] (15 min) Moderate 02/17/2017 Patient Education: Patient Medication Summary Completed 02/17/2017 Care Plan: Referral Order SNOMED-CT : [id number] Pending 02/17/2017 Visit Plan: Hypertension - well controlled - continue with current medications, continue with no added salt diet. Pt has been encouraged to exercise daily. The pt has been advised to call the office if there are any acute concerns about change in blood pressure readings at home. Weakness-recent stroke-strength improving-no changes 01/02/2017 Appointment: Diamond Sawyer [facility]el[phone] (30 min) Complex 01/02/2017 Patient Education: Patient Medication Summary Completed 01/02/2017 Visit Plan: Hypertension - well controlled - continue with current medications, continue with no added salt diet. Pt has been encouraged to exercise daily. The pt has been advised to call the office if there are any acute concerns about change in blood pressure readings at home. Generalized weakness-gait syiyqxushvo-WQY-wdellwub PT-patient to use 4 wheeled walker GERD- dysphagia-refer for speech eval-start pepcid twice daily Allergies-chronic- restart allergy pill as directed 12/05/2016 Appointment: Diamond Sawyer WPtel: [phone] [phone] (15 min) Moderate 12/05/2016 Patient Education: [...] care surrogate. 08/21/2016 Appointment: Ashley Wooten WPtel: [phone] [facility] [facility] - Annual Wellness Visit 08/21/2016 [...] controlled. 08/19/2016 Appointment: [facility] Lu[phone] (15 min) Moderate 08/19/2016 Patient Education: [...] to medications. 05/20/2016 App[facility]ment: [phone] (15 min) Moderate 05/20/2016 Patient Education: [...] 01/23/2016 Appointment: Maria Lu[facility]chever[phone] (15 min) Moderate 01/23/2016 Patient Education: Patient [...] Luisa Echeverria WPtel: [facility] (15 min) Moderate 09/26/2015 Patient Education: Patient [...] Luisa Echeverria WPtel: [facility] (15 min) Moderate 08/22/2015 Appointment: Maria Luisa Echeverria WPtel[facility] (15 min) Moderate 08/15/2015 Visit Plan: Medicare [...] for health care surrogate. 07/19/2015 Appointment: [facility] - Annual Wellness Visit 07/19/2015 Patient [...] 04/17/2015 Appointment: [phone] [id number] (15 min) Moderate 04/17/2015 Patient Education: [...] 12/13/2014 Appointment: Maria Luisa Echeverria WPtel: [phone] [id number] (15 min) Moderate 12/13/2014 Patient Education: Patient [...] 10/11/2014 Appointment: Maria Lu[facility]ver[phone] [id number] [place] ([place] New Patient 10/11/2014 Appointment: [facility] Lu[facility]ver[phone] [facility] (15 min) Moderate 10/11/2014 Patient Education: [...] further attempt to reduce peripheral edema. . Medicare Exam - today we discussed [...] blood pressure readings at home. Generalized weakness-gait alafunknnye-VSR-rcgjnsrz PT-patient to use 4 wheeled walker RTTU-ucdfdhkhe-kztca for speech eval-start pepcid twice daily Hfqodsyae-wrmnrop-vazlvgo allergy pill as directed . Medicare Exam [...] Gait instability - continue with therapy. . Hypertension - well controlled - continue with current medications, continue with no added salt diet. Pt has been encouraged to exercise daily. The pt has been advised to call the office if there are any acute concerns about change in blood pressure readings at home. Weakness-recent stroke-strength improving-no changes . Diabetes Mellitus - controlled - per [...]
--- OUTSIDE RECORDS SUMMARY | 2018-07-02 14:38 | XMS REPORT | CCD ---
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 Name Role Phone PP Unavailable CCM Unavailable Summary Purpose Interface Exchange Insurance Providers Payer name Policy type / Coverage type Covered republican ID Effective Begin Date Effective End Date WPS Medicare Part B Medicare Part B [id number] 2017 Unknown [facility] Medicare Part B [id number] Unknown Family history Mother Diagnosis Age At [...] Unknown 3 10/11/[address]: 913565826 Never smoker 10/11/[address]: 529110381 Never drinks alcohol 10/11/2014 Allergies, Adverse Reactions, [...] Start Date Stop Date Status Fill Instructions Plavix 75 mg tablet RxNorm: 573293 TAKE ONE TABLET BY MOUTH DAILY 04/26/2018 12/21/2018 Active Request already responded to by other means (e.g. phone or fax) Coreg 3.125 mg tablet RxNorm: 623720 TAKE ONE-HALF TABLET BY MOUTH TWICE A DAY 04/19/2018 09/15/2018 Active clonazepam 0.5 mg tablet RxNorm: 790748 Tablet(s) TAKE 2 TABLETS BY MOUTH AT BEDTIME NEEDED 04/19/2018 07/17/2018 Active Plavix 75 mg tablet RxNorm: 110611 Tablet(s) TAKE ONE TABLET BY MOUTH DAILY 04/19/2018 04/25/2018 Inactive OneTouch Ultra Test strips RxNorm: TEST 1 TIME DAILY 201804/08/2019 Active Benicar 40 mg tablet RxNorm: 833978 1 Tablet(s) PO daily 201707/23/2018 Active This replaces losartan Benicar 40 mg tablet RxNorm: 790220 1 Tablet(s) PO daily 201702/23/2018 Inactive This replaces losartan clonazepam 0.5 mg tablet RxNorm: 856063 Tablet(s) TAKE 2 TABLETS BY MOUTH AT BEDTIME NEEDED 01/20/2018 04/18/2018 Inactive Coreg 3.125 mg tablet RxNorm: 115726 1/2 Tablet(s) PO BID 201704/18/2018 Inactive Mirapex 0.5 mg tablet RxNorm: 031271 TAKE ONE TABLET BY MOUTH EVERY NIGHT AT BEDTIME 12/21/2017 05/19/2018 Active folic acid 1 mg tablet RxNorm: 850009 TAKE ONE TABLET BY MOUTH DAILY 12/11/2017 12/05/2018 Active Plavix 75 mg tablet RxNorm: 908333 TAKE ONE TABLET BY MOUTH DAILY 12/11/2017 04/18/2018 Inactive Aspirin Low Dose 81 mg tablet,delayed release RxNorm: 137478 TAKE ONE TABLET BY MOUTH DAILY 11/24/2017 12/28/2017 Inactive Request already responded to by other means (e.g. phone or fax) Aspirin Low Dose 81 mg tablet,delayed release RxNorm: 672633 1 Tablet(s) PO daily 11/18/2017 11/17/2017 Inactive Aspirin Low Dose 81 mg tablet,delayed release RxNorm: 289774 1 Tablet(s) PO daily 11/18/2017 11/23/2017 Inactive clonazepam 0.5 mg tablet RxNorm: 985988 Tablet(s) TAKE 2 TABLETS BY MOUTH AT BEDTIME NEEDED 10/23/2017 04/18/2018 Inactive Lomotil 2.5 mg-0.025 mg tablet RxNorm: 1547225 1 Tablet(s) PO daily as needed 09/28/2017 03/26/2018 Inactive pravastatin 80 mg tablet RxNorm: 189297 TAKE ONE TABLET BY MOUTH EVERY EVENING 08/19/2017 11/11/2018 Active clonazepam 0.5 mg tablet RxNorm: 284151 Tablet(s) TAKE 2 TABLETS BY MOUTH AT BEDTIME NEEDED 07/24/2017 10/20/2017 Inactive Mirapex 0.5 mg tablet RxNorm: 846514 TAKE ONE TABLET BY MOUTH EVERY NIGHT AT BEDTIME 07/23/2017 12/19/2017 Inactive Vitamin D2 50,000 unit capsule RxNorm: 587285 1 Capsule(s) PO QW 07/22/2017 07/21/2017 Inactive Vitamin D2 50,000 unit capsule RxNorm: 521275 1 Capsule(s) PO QW 07/22/2017 10/19/2017 Inactive amlodipine 5 mg tablet RxNorm: 612037 1 Tablet(s) PO daily 01/201812/28/2017 Inactive Refill not appropriate Prozac 40 mg capsule RxNorm: 358422 TAKE ONE CAPSULE BY MOUTH DAILY 06/24/2017 06/18/2018 Active Plavix 75 mg tablet RxNorm: 533977 TAKE ONE TABLET BY MOUTH DAILY 06/18/2017 12/10/2017 Inactive Lomotil 2.5 mg-0.025 mg tablet RxNorm: 3702398 1 Tablet(s) PO daily as needed 06/04/2017 11/17/2017 Inactive losartan 100 mg tablet RxNorm: 393292 TAKE ONE TABLET BY MOUTH DAILY 05/11/2017 02/23/2018 Inactive OneTouch Ultra Test strips RxNorm: TEST 1 TIME DAILY 201704/13/2018 Inactive clonazepam 0.5 mg tablet RxNorm: 641051 Tablet(s) TAKE 2 TABLETS BY MOUTH AT BEDTIME NEEDED 04/14/2017 11/17/2017 Inactive Lomotil 2.5 mg-0.025 mg tablet RxNorm: 3449177 1 Tablet(s) PO daily as needed 03/17/2017 06/03/2017 Inactive Mirapex 0.5 mg tablet RxNorm: 215137 TAKE ONE TABLET BY MOUTH EVERY NIGHT AT BEDTIME 01/19/2017 07/17/2017 Inactive clonazepam 0.5 mg tablet RxNorm: 646151 Tablet(s) TAKE 2 TABLETS BY MOUTH AT BEDTIME NEEDED 01/12/2017 04/09/2017 Inactive tramadol 50 mg tablet RxNorm: 049939 1-2 Tablet(s) PO Q6 PRN pain 12/31/2016 08/24/2017 Inactive folic acid 1 mg tablet RxNorm: 727960 TAKE ONE TABLET BY MOUTH DAILY 12/24/2016 12/10/2017 Inactive tramadol 50 mg tablet RxNorm: 239323 1-2 Tablet(s) PO Q6 PRN pain 12/12/2016 12/16/2016 Inactive tramadol 50 mg tablet RxNorm: 075732 1-2 Tablet(s) PO Q6 PRN pain 12/12/2016 12/11/2016 Inactive clonazepam 0.5 mg tablet RxNorm: 303902 Tablet(s) TAKE 2 TABLETS BY MOUTH AT BEDTIME NEEDED 12/09/2016 01/11/2017 Inactive pravastatin 80 mg tablet RxNorm: 731541 TAKE ONE TABLET BY MOUTH EVERY EVENING 11/11/2016 08/07/2017 Inactive Mirapex 0.5 mg tablet RxNorm: 238646 TAKE ONE TABLET BY MOUTH EVERY NIGHT AT BEDTIME 10/29/2016 01/18/2017 Inactive Prozac 40 mg capsule RxNorm: 024970 TAKE ONE CAPSULE BY MOUTH DAILY 10/29/2016 06/23/2017 Inactive spironolactone 25 mg tablet RxNorm: 586066 TAKE ONE TABLET BY MOUTH DAILY 10/29/2016 12/04/2016 Inactive clonazepam 0.5 mg tablet RxNorm: 684049 Tablet(s) TAKE 2 TABLETS BY MOUTH AT BEDTIME NEEDED 09/24/2016 11/22/2016 Inactive Lomotil 2.5 mg-0.025 mg tablet RxNorm: 0166294 1 Tablet(s) PO daily as needed 07/30/2016 01/23/2017 Inactive sucralfate 1 gram tablet RxNorm: 095481 TAKE ONE-HALF TABLET BY MOUTH TWO TIMES A DAY ONE HOUR BEFORE MEALS 07/28/201608/24 Inactive losartan 100 mg tablet RxNorm: 317699 TAKE ONE TABLET BY MOUTH DAILY 07/28/2016 01/23/2017 Inactive Lialda 1.2 gram tablet,delayed release RxNorm: 218593 3 Tablet(s) PO daily 07/02/2016 08/24/2017 Inactive Mirapex 0.5 mg tablet RxNorm: 835179 TAKE ONE TABLET BY MOUTH EVERY NIGHT AT BEDTIME 06/27/2016 10/24/2016 Inactive clonazepam 0.5 mg tablet RxNorm: 342896 Tablet(s) TAKE 2 TABLETS BY MOUTH AT BEDTIME NEEDED 06/27/2016 01/11/2017 Inactive clonazepam 0.5 mg tablet RxNorm: 007423 Tablet(s) TAKE 2 TABLETS BY MOUTH AT BEDTIME NEEDED 04/29/2016 06/25/2016 Inactive folic acid 1 mg tablet RxNorm: 544687 TAKE ONE TABLET BY MOUTH DAILY 02/28/2016 11/23/2016 Inactive clonazepam 0.5 mg tablet RxNorm: 323298 Tablet(s) TAKE 2 TABLETS BY MOUTH AT BEDTIME NEEDED 02/26/2016 01/11/2017 Inactive OneTouch Ultra Test strips RxNorm: TEST ONCE DAILY 02/25/2016 08/22/2016 Inactive sucralfate 1 gram tablet RxNorm: 772146 TAKE ONE-HALF TABLET BY MOUTH TWO TIMES A DAY ONE HOUR BEFORE MEALS 01/28/201607/25 Inactive Mirapex 0.5 mg tablet RxNorm: 834778 TAKE ONE TABLET BY MOUTH EVERY NIGHT AT BEDTIME 01/28/2016 06/25/2016 Inactive spironolactone 25 mg tablet RxNorm: 267968 TAKE ONE TABLET BY MOUTH DAILY 01/28/2016 10/23/2016 Inactive Lomotil 2.5 mg-0.025 mg tablet RxNorm: 1648003 1 Tablet(s) PO daily as needed 12/05/2015 01/11/2017 Inactive Klor-Con M20 mEq tablet,extended release RxNorm: 028097 TAKE ONE TABLET BY MOUTH THREE TIMES A DAY 12/05/2015 08/24/2017 Inactive losartan 100 mg tablet RxNorm: 526703 TAKE ONE TABLET BY MOUTH DAILY 11/22/2015 07/27/2016 Inactive amlodipine 5 mg tablet RxNorm: 531255 TAKE ONE TABLET BY MOUTH DAILY 11/13/2015 11/06/2016 Inactive Refill not appropriate clonazepam 0.5 mg tablet RxNorm: 561070 Tablet(s) TAKE 2 TABLETS BY MOUTH AT BEDTIME NEEDED 11/08/2015 01/11/2017 Inactive clonazepam 0.5 mg tablet RxNorm: 633967 Tablet(s) TAKE 2 TABLETS BY MOUTH AT BEDTIME NEEDED 11/02/2015 01/29/2016 Inactive Prozac 40 mg capsule RxNorm: 914894 1 Capsule(s) PO daily 10/3010/24/2016 Inactive pravastatin 80 mg tablet RxNorm: 534326 1 Tablet(s) PO QPM 10/23/2016 Inactive OneTouch Ultra Test strips RxNorm: TEST ONCE DAILY 10/30/2015 01/27/2016 Inactive Imuran 50 mg tablet RxNorm: 403224 1.5 (75) Tablet(s) PO daily 08/17/2015 08/10/2016 Inactive K75.4 clonazepam 0.5 mg tablet RxNorm: 377822 Tablet(s) TAKE 2 TABLETS BY MOUTH AT BEDTIME NEEDED 08/10/2015 01/11/2017 Inactive Imuran 50 mg tablet RxNorm: 578431 1.5 (75) Tablet(s) PO daily 08/10/2015 08/16/2015 Inactive OneTouch Ultra Test strips RxNorm: TEST ONCE DAILY 08/09/2015 10/29/2015 Inactive Vitamin D2 50,000 unit capsule RxNorm: 465053 1 Capsule(s) PO QW 08/07/2015 01/11/2017 Inactive Mirapex 0.5 mg tablet RxNorm: 264763 Tablet(s) TAKE ONE TABLET BY MOUTH EVERY NIGHT AT BEDTIME 07/19/2015 01/14/2016 Inactive Lomotil 2.5 mg-0.025 mg tablet RxNorm: 5198337 1 Tablet(s) PO daily as needed 06/06/2015 01/11/2017 Inactive clonazepam 0.5 mg tablet RxNorm: 221700 Tablet(s) TAKE 2 TABLETS BY MOUTH AT BEDTIME NEEDED 05/10/2015 08/06/2015 Inactive sucralfate 1 gram tablet RxNorm: 778075 TAKE ONE-HALF TABLET BY MOUTH TWO TIMES A DAY ONE HOUR BEFORE MEALS 05/04/201501/26 Inactive meclizine 25 mg tablet RxNorm: 413226 1/2-1 Tablet(s) PO Q6 PRN 03/15/2015 08/24/2017 Inactive spironolactone 25 mg tablet RxNorm: 294278 1 Tablet(s) PO daily 03/14/2015 01/27/2016 Inactive spironolactone 25 mg tablet RxNorm: 616163 1 Tablet(s) PO daily 03/14/2015 03/13/2015 Inactive clonazepam 0.5 mg tablet RxNorm: 448575 TAKE 2 TABLETS BY MOUTH AT BEDTIME NEEDED 02/08/2015 05/02/2015 Inactive folic acid 1 mg tablet RxNorm: 299458 1 Tablet(s) PO daily 02/01/2016 Inactive clonazepam 0.5 mg tablet RxNorm: 810632 TAKE 2 TABLETS BY MOUTH AT BEDTIME NEEDED 02/06/2015 02/08/2015 Inactive amlodipine 10 mg tablet RxNorm: 051009 1/2 Tablet(s) PO daily 02/06/2015 07/18/2015 Inactive this replaces her 5mg pill OneTouch Ultra Test strips RxNorm: TEST ONCE DAILY 01/30/2015 07/28/2015 Inactive Mirapex 0.5 mg tablet RxNorm: 697896 TAKE ONE TABLET BY MOUTH EVERY NIGHT AT BEDTIME 01/29/2015 07/18/2015 Inactive sucralfate 1 gram tablet RxNorm: 599944 TAKE ONE-HALF TABLET BY MOUTH TWO TIMES A DAY ONE HOUR BEFORE MEALS 01/11/201504/10 Inactive OneTouch Ultra Test strips RxNorm: 1 Miscellaneous daily 11/1401/29/2015 Inactive amlodipine 10 mg tablet RxNorm: 478055 1 Tablet(s) PO daily 02/05/2015 Inactive this replaces her 5mg pill clonazepam 0.5 mg tablet RxNorm: 101538 2 Tablet(s) PO QHS 10/201402/05/2015 Inactive sucralfate 1 gram tablet RxNorm: 277260 1/2 Tablet(s) PO BID 1 hour before meal 10/11/2014 01/08/2015 Inactive losartan 100 mg tablet RxNorm: 323827 1 Tablet(s) PO daily 04/201410/05/2015 Inactive amlodipine 5 mg tablet RxNorm: 341316 1 Tablet(s) PO daily 04/201410/30/2014 Inactive Imuran 50 mg tablet RxNorm: 627678 1.5 (75) Tablet(s) PO daily 10/11/2014 08/09/2015 Inactive Lomotil 2.5 mg-0.025 mg tablet RxNorm: 7897070 1 Tablet(s) PO daily as needed 10/11/2014 06/05/2015 Inactive pravastatin 80 mg tablet RxNorm: 202089 1 Tablet(s) PO QPM 04/201410/05/2015 Inactive Klor-Con M20 mEq tablet,extended release RxNorm: 125267 1 Tablet(s) PO TID 10/11/2014 10/05/2015 Inactive Mirapex 0.5 mg tablet RxNorm: 659396 1 Tablet(s) PO QHS 201401/28/2015 Inactive Prozac 40 mg capsule RxNorm: 517416 1 Capsule(s) PO daily 10/1110/05/2015 Inactive Colazal 750 mg capsule RxNorm: 605031 1 Capsule(s) PO TID No Start Date Active Combigan 0.2 %-0.5 % eye drops RxNorm: 979291 1 Drop(s) ophthalmic (eye) BID No Start Date Active Lumigan 0.01 % eye drops RxNorm: 3426986 1 Drop(s) OPH QHS No Start Date Active Prolia 60 mg/mL subcutaneous syringe RxNorm: 677152 1 Milliliter(s) SQ every 6 months No Start Date Active Vitamin D2 50,000 unit capsule RxNorm: 768042 1 Capsule(s) PO QW No Start Date 08/06/2015 Inactive OneTouch Ultra Test strips RxNorm: 1 Miscellaneous daily No Start Date 11/13/2014 Inactive Plavix 75 mg tablet RxNorm: 497376 1 Tablet(s) PO daily No Start Date 06/17/2017 Inactive Lomotil 2.5 mg-0.025 mg tablet RxNorm: 1837863 1 Tablet(s) PO daily as needed No Start Date 10/10/2014 Inactive folic acid 1 mg tablet RxNorm: 552283 1 Tablet(s) PO daily No Start Date 02/06/2015 Inactive amlodipine 5 mg tablet RxNorm: 198361 1 Tablet(s) PO daily No Start Date 10/10/2014 Inactive Imuran 50 mg tablet RxNorm: 062930 1 1/2 (75) Tablet(s) PO daily No Start Date 10/10/2014 Inactive Boniva 3 mg/3 mL intravenous syringe RxNorm: 847824 Milliliter(s) IV No Start Date 07/18/2015 Inactive potassium chloride 20 meq RxNorm: 364646 1 PO TID No Start Date 10/10/2014 Inactive sucralfate 1 gram tablet RxNorm: 015261 1/2 Tablet(s) PO BID 1 hour before meal No Start Date 10/10/2014 Inactive losartan 100 mg tablet RxNorm: 823100 1 Tablet(s) PO daily No Start Date 10/10/2014 Inactive Vitamin D3 2,000 unit tablet RxNorm: 803300 1 Tablet(s) PO daily No Start Date 08/23/2015 Inactive Calcium + D oral RxNorm: 784882 oral No Start Date 08/24/2017 Inactive Prozac 40 mg capsule RxNorm: 651854 1 Capsule(s) PO daily No Start Date 10/10/2014 Inactive timolol 0.5 % eye drops RxNorm: 309267 1 Drop(s) OPH BID No Start Date 12/28/2017 Inactive clonazepam 0.5 mg tablet RxNorm: 894099 2 Tablet(s) PO QHS No Start Date 10/16/2014 Inactive amlodipine 5 mg tablet RxNorm: 460477 1 Tablet(s) PO daily No Start Date 08/22/2015 Inactive pravastatin 80 mg tablet RxNorm: 702166 1 Tablet(s) PO QPM No Start Date 10/10/2014 Inactive Lialda 1.2 gram tablet,delayed release RxNorm: 008420 3 Tablet(s) PO daily No Start Date 07/01/2016 Inactive Alavert 10 mg disintegrating tablet RxNorm: 581968 1 Tablet(s) PO daily as needed No [...] Result Date C-Reactive Protein Qnt Crqnt CRP 0.2 mg/dl [...] 31.7 pg 04/23/2018 Cbc With Differential Ord2 Bullitt% 10.1 % 04/23/2018 Cbc With Differential Ord2 [...] 1.17 K/ul 04/23/2018 Cbc With Differential Ord2 Bullitt ABS# 0.6 K/ul 04/23/2018 Cbc With Differential Ord2 Eos ABS# 0.1 K/ul 04/23/2018 Cbc With Differential Ord2 Baso ABS# 0.0 K/ul 04/23/2018 Sed Rate Ord21 ESR 19 mm/hr 04/23/2018 Comp Metabolic Kqu851 NA 134 mEq/L 04/23/2018 Comp Metabolic Veu542 K 4.6 mEq/L 04/23/2018 Comp Metabolic Fel103 CL 103 mEq/L 04/23/2018 Comp Metabolic Atr256 CO2 22.0 mEq/L 04/23/2018 Comp Metabolic Cgp713 ANION GAP 14 04/23/2018 Comp Metabolic Mqk627 GLUCOSE 133 mg/dL 04/23/2018 Comp Metabolic Teh654 Creat 0.9 mg/dL 04/23/2018 Comp Metabolic Lgb686 eGFR 62 ml/min/1.73m2 04/23/2018 Comp Metabolic Aqo734 BUN 11 mg/dL 04/23/2018 Comp Metabolic Xen983 B/C Ratio 11.7 Ratio 04/23/2018 Comp Metabolic Wcd512 CALCIUM 9.0 mg/dL 04/23/2018 Comp Metabolic Cjz516 ALK PHOS 42 U/L 04/23/2018 Comp Metabolic Tmy030 AST(SGOT) 44 U/L 04/23/2018 Comp Metabolic Nkg221 ALT(SGPT) 25 U/L 04/23/2018 Comp Metabolic Imr341 BILI T 0.4 mg/dL 04/23/2018 Comp Metabolic Tdn396 ALBUMIN 4.2 g/dL 04/23/2018 Comp Metabolic Qjy642 TPRO 6.6 g/dL 04/23/2018 Comp Metabolic Mkj223 GLOB 2.4 g/dL 04/23/2018 Comp Metabolic Ruw481 A/G Ratio 1.7 Ratio 04/23/2018 Comp Metabolic Uwh438 Osmo 270 mOsmo 04/23/2018 Vitamin D 25 Oh Fek6080 VITAMIN D, 25 HYDROXY 28.88 ng/mL C-Reactive [...] 31.9 pg 02/23/2018 Cbc With Differential Ord2 Bull[place]% 8.8 % 02/23/2018 Cbc With Differential Ord2 [...] 1.24 K/ul 02/23/2018 Cbc With Differential Ord2 Bull[place] ABS# 0.5 K/ul 02/23/2018 Cbc With Differential Ord2 Eos ABS# 0.1 K/ul 02/23/2018 Cbc With Differential Ord2 Baso ABS# 0.0 K/ul 02/23/2018 Comp Metabolic Ikq373 NA 136 mEq/L 02/23/2018 Comp Metabolic Ckn004 K 4.0 mEq/L 02/23/2018 Comp Metabolic Zxg016 CL 105 mEq/L 02/23/2018 Comp Metabolic Qmq354 CO2 20.0 mEq/L 02/23/2018 Comp Metabolic Wzc351 ANION GAP 15 02/23/2018 Comp Metabolic Gse259 GLUCOSE 129 mg/dL 02/23/2018 Comp Metabolic Uif328 Creat 0.9 mg/dL 02/23/2018 Comp Metabolic Hrr734 eGFR 66 ml/min/1.73m2 02/23/2018 Comp Metabolic Kpw358 BUN 11 mg/dL 02/23/2018 Comp Metabolic Zaw678 B/C Ratio 12.2 Ratio 02/23/2018 Comp Metabolic Bar807 CALCIUM 8.6 mg/dL 02/23/2018 Comp Metabolic Szc142 ALK PHOS 43 U/L 02/23/2018 Comp Metabolic Zfl423 AST(SGOT) 33 U/L 02/23/2018 Comp Metabolic Zsq001 ALT(SGPT) 24 U/L 02/23/2018 Comp Metabolic Bol906 BILI T 0.5 mg/dL 02/23/2018 Comp Metabolic Qjf672 ALBUMIN 4.2 g/dL 02/23/2018 Comp Metabolic Nux539 TPRO 6.8 g/dL 02/23/2018 Comp Metabolic Pwv008 GLOB 2.6 g/dL 02/23/2018 Comp Metabolic Shw479 A/G Ratio 1.6 Ratio 02/23/2018 Comp Metabolic Luq282 Osmo 273 mOsmo 02/23/2018 Vitamin D 25 Oh Nrd6018 VITAMIN D, 25 HYDROXY 29.25 ng/mL Sed Rate Ord21 ESR 8 mm/hr 02/23/2018 Hepatic Ixl050 ALBUMIN 4.3 g/dL 01/05/2018 Hepatic Mug097 TPRO 6.7 g/dL 01/05/2018 Hepatic Nnz726 GLOB 2.5 g/dL 01/05/2018 Hepatic Vzo472 A/G Ratio 1.7 Ratio 01/05/2018 Hepatic Xuj613 ALK PHOS 53 U/L 01/05/2018 Hepatic Rxr341 ALT(SGPT) 31 U/L 01/05/2018 Hepatic Dnw121 AST(SGOT) 44 U/L 01/05/2018 Hepatic Ayd784 BILI T 0.4 mg/dL 01/05/2018 Hepatic Iky549 BILI D 0.1 mg/dL 01/05/2018 Hepatic Mxk315 BILI I 0.3 mg/dL 01/05/2018 Comp Metabolic Qut664 NA 133 mEq/L 10/20/2017 Comp Metabolic Sda600 K 4.1 mEq/L 10/20/2017 Comp Metabolic Psx203 CL 103 mEq/L 10/20/2017 Comp Metabolic Swn899 CO2 23.0 mEq/L 10/20/2017 Comp Metabolic Jvu746 ANION GAP 11 10/20/2017 Comp Metabolic Hio799 GLUCOSE 118 mg/dL 10/20/2017 Comp Metabolic Krz840 Creat 0.9 mg/dL 10/20/2017 Comp Metabolic Par799 eGFR 64 ml/min/1.73m2 10/20/2017 Comp Metabolic Mzl127 BUN 14 mg/dL 10/20/2017 Comp Metabolic Czh210 B/C Ratio 15.2 Ratio 10/20/2017 Comp Metabolic Mmm244 CALCIUM 8.8 mg/dL 10/20/2017 Comp Metabolic Myk507 ALK PHOS 43 U/L 10/20/2017 Comp Metabolic Ykv611 AST(SGOT) 31 U/L 10/20/2017 Comp Metabolic Vyd505 ALT(SGPT) 25 U/L 10/20/2017 Comp Metabolic App358 BILI T 0.4 mg/dL 10/20/2017 Comp Metabolic Lex338 ALBUMIN 4.1 g/dL 10/20/2017 Comp Metabolic Juz535 TPRO 6.6 g/dL 10/20/2017 Comp Metabolic Ppf812 GLOB 2.5 g/dL 10/20/2017 Comp Metabolic Jro124 A/G Ratio 1.6 Ratio 10/20/2017 Comp Metabolic Xcl196 Osmo 268 mOsmo 10/20/2017 Vitamin D 25 Oh Ewt3668 VITAMIN D, 25 HYDROXY 42.65 ng/mL C-Reactive [...] 32.0 pg 10/20/2017 Cbc With Differential Ord2 Bull[place]% 8.6 % 10/20/2017 Cbc With Differential Ord2 [...] 1.16 K/ul 10/20/2017 Cbc With Differential Ord2 [place] ABS# 0.5 K/ul 10/20/2017 Cbc With Differential [...] 32.2 pg 07/21/2017 Cbc With Differential Ord2 [place]% 9.7 % 07/21/2017 Cbc With Differential Ord2 [...] 1.20 K/ul 07/21/2017 Cbc With Differential Ord2 [place] ABS# 0.6 K/ul 07/21/2017 Cbc With Differential Ord2 Eos ABS# 0.0 K/ul 07/21/2017 Cbc With Differential Ord2 Baso ABS# 0.0 K/ul 07/21/2017 Sed Rate Ord21 ESR 14 mm/hr 07/21/2017 Comp Metabolic Wah542 NA 135 mEq/L 07/21/2017 Comp Metabolic Bca718 K 4.5 mEq/L 07/21/2017 Comp Metabolic Xan579 CL 101 mEq/L 07/21/2017 Comp Metabolic Rli404 CO2 26.0 mEq/L 07/21/2017 Comp Metabolic Tzr631 ANION GAP 13 07/21/2017 Comp Metabolic Bxe255 GLUCOSE 97 mg/dL 07/21/2017 Comp Metabolic Akl768 Creat 0.9 mg/dL 07/21/2017 Comp Metabolic Jht415 eGFR 66 ml/min/1.73m2 07/21/2017 Comp Metabolic Rob361 BUN 13 mg/dL 07/21/2017 Comp Metabolic Usy990 B/C Ratio 14.4 Ratio 07/21/2017 Comp Metabolic Xae791 CALCIUM 9.2 mg/dL 07/21/2017 Comp Metabolic Inl231 ALK PHOS 46 U/L 07/21/2017 Comp Metabolic Ozd269 AST(SGOT) 31 U/L 07/21/2017 Comp Metabolic Dzc532 ALT(SGPT) 19 U/L 07/21/2017 Comp Metabolic Lys557 BILI T 0.5 mg/dL 07/21/2017 Comp Metabolic Hah339 ALBUMIN 4.5 g/dL 07/21/2017 Comp Metabolic Osg019 TPRO 7.2 g/dL 07/21/2017 Comp Metabolic Ujg238 GLOB 2.7 g/dL 07/21/2017 Comp Metabolic Kzc823 A/G Ratio 1.7 Ratio 07/21/2017 Comp Metabolic Egn064 Osmo 270 mOsmo 07/21/2017 Vitamin D 25 Oh Yfx2405 VITAMIN D, 25 HYDROXY 31.39 ng/mL C-Reactive [...] 31.9 pg 04/14/2017 Cbc With Differential Ord2 [place]% 9.1 % 04/14/2017 Cbc With Differential Ord2 [...] 1.47 K/ul 04/14/2017 Cbc With Differential Ord2 [place] ABS# 0.7 K/ul 04/14/2017 Cbc With Differential Ord2 Eos ABS# 0.0 K/ul 04/14/2017 Cbc With Differential Ord2 Baso ABS# 0.0 K/ul 04/14/2017 Comp Metabolic Hsn562 NA 136 mEq/L 04/14/2017 Comp Metabolic Nyr698 K 4.4 mEq/L 04/14/2017 Comp Metabolic Dkb035 CL 104 mEq/L 04/14/2017 Comp Metabolic Tdi710 CO2 21.0 mEq/L 04/14/2017 Comp Metabolic Pan838 ANION GAP 15 04/14/2017 Comp Metabolic Omq460 GLUCOSE 112 mg/dL 04/14/2017 Comp Metabolic Kjo764 Creat 1.1 mg/dL 04/14/2017 Comp Metabolic Ngc037 eGFR 51 ml/min/1.73m2 04/14/2017 Comp Metabolic Izi811 BUN 16 mg/dL 04/14/2017 Comp Metabolic Thd472 B/C Ratio 14.3 Ratio 04/14/2017 Comp Metabolic Ffp460 CALCIUM 8.9 mg/dL 04/14/2017 Comp Metabolic Did105 ALK PHOS 39 U/L 04/14/2017 Comp Metabolic Qse366 AST(SGOT) 24 U/L 04/14/2017 Comp Metabolic Oye295 ALT(SGPT) 18 U/L 04/14/2017 Comp Metabolic Gmx845 BILI T 0.5 mg/dL 04/14/2017 Comp Metabolic Hks902 ALBUMIN 4.3 g/dL 04/14/2017 Comp Metabolic Eav620 TPRO 6.8 g/dL 04/14/2017 Comp Metabolic Yer181 GLOB 2.5 g/dL 04/14/2017 Comp Metabolic Yzk635 A/G Ratio 1.7 Ratio 04/14/2017 Comp Metabolic Qtw230 Osmo 274 mOsmo 04/14/2017 Vitamin D 25 Oh Lbb6456 VITAMIN D, 25 HYDROXY 29.88 ng/mL Sed Rate Ord21 ESR 15 mm/hr 04/14/2017 C-Reactive Protein Qnt Crqnt CRP 0.1 mg/dl 04/14/2017 C-Reactive Protein Qnt Crqnt CRP 0.1 mg/dl 02/09/2017 Comp Metabolic Mmj069 NA 135 mEq/L 02/09/2017 Comp Metabolic Cax009 K 4.4 mEq/L 02/09/2017 Comp Metabolic Eno269 CL 102 mEq/L 02/09/2017 Comp Metabolic Kdr241 CO2 23.0 mEq/L 02/09/2017 Comp Metabolic Brr621 ANION GAP 14 02/09/2017 Comp Metabolic Bnm034 GLUCOSE 98 mg/dL 02/09/2017 Comp Metabolic Uzu117 Creat 0.9 mg/dL 02/09/2017 Comp Metabolic Spj881 eGFR 65 ml/min/1.73m2 02/09/2017 Comp Metabolic Rnb984 BUN 18 mg/dL 02/09/2017 Comp Metabolic Prq668 B/C Ratio 19.8 Ratio 02/09/2017 Comp Metabolic Ocu960 CALCIUM 9.2 mg/dL 02/09/2017 Comp Metabolic Zes527 ALK PHOS 42 U/L 02/09/2017 Comp Metabolic Cly310 AST(SGOT) 24 U/L 02/09/2017 Comp Metabolic Fdk136 ALT(SGPT) 16 U/L 02/09/2017 Comp Metabolic Aah849 BILI T 0.4 mg/dL 02/09/2017 Comp Metabolic Vls396 ALBUMIN 4.4 g/dL 02/09/2017 Comp Metabolic Pqv933 TPRO 7.0 g/dL 02/09/2017 Comp Metabolic Icd592 GLOB 2.6 g/dL 02/09/2017 Comp Metabolic Jmi076 A/G Ratio 1.7 Ratio 02/09/2017 Comp Metabolic Sdd442 Osmo 272 mOsmo 02/09/2017 Cbc With Differential [...] 32.5 pg 02/09/2017 Cbc With Differential Ord2 [place]% 8.7 % 02/09/2017 Cbc With Differential Ord2 [...] 1.06 K/ul 02/09/2017 Cbc With Differential Ord2 [place] ABS# 0.6 K/ul 02/09/2017 Cbc With Differential Ord2 Eos ABS# 0.0 K/ul 02/09/2017 Cbc With Differential Ord2 Baso ABS# 0.0 K/ul 02/09/2017 Vitamin D 25 Oh [id number] VITAMIN D, 25 HYDROXY 36.00 ng/mL Sed Rate Ord21 ESR 16 mm/hr 02/09/2017 %Hba1C Msm677 % HbA1c 56779-0 6.1 % 05/20/2016 %Hba1C Seh635 Gluc Ave 128 mg/dL 05/20/2016 Lipid Ord30 CHOL 212 mg/dL 05/20/2016 Lipid Ord30 HDL 52.0 mg/dl 05/20/2016 Lipid Ord30 TRIG 149 mg/dL 05/20/2016 Lipid Ord30 LDL 130 mg/dL 05/20/2016 Lipid Ord30 C/HDL 4.1 Ratio 05/20/2016 Comp Metabolic Ngc664 NA 134 mEq/L 04/21/2016 Comp Metabolic Pxj779 K 5.0 mEq/L 04/21/2016 Comp Metabolic Rhp652 CL 103 mEq/L 04/21/2016 Comp Metabolic Vab207 CO2 24.0 mEq/L 04/21/2016 Comp Metabolic Oge984 ANION GAP 12 04/21/2016 Comp Metabolic Wdu360 GLUCOSE 122 mg/dL 04/21/2016 Comp Metabolic Nhw642 Creat 1.1 mg/dL 04/21/2016 Comp Metabolic Obv954 eGFR 52 ml/min/1.73m2 04/21/2016 Comp Metabolic Oqh560 BUN 24 mg/dL 04/21/2016 Comp Metabolic Gbo671 B/C Ratio 21.6 Ratio 04/21/2016 Comp Metabolic Bbn986 CALCIUM 9.7 mg/dL 04/21/2016 Comp Metabolic Bmr073 ALK PHOS 51 U/L 04/21/2016 Comp Metabolic Pno974 AST(SGOT) 23 U/L 04/21/2016 Comp Metabolic Bfj299 ALT(SGPT) 17 U/L 04/21/2016 Comp Metabolic Suy718 BILI T 0.5 mg/dL 04/21/2016 Comp Metabolic Qrj972 ALBUMIN 4.4 g/dL 04/21/2016 Comp Metabolic Uir426 TPRO 7.3 g/dL 04/21/2016 Comp Metabolic Vqk334 GLOB 2.9 g/dL 04/21/2016 Comp Metabolic Zjj457 A/G Ratio 1.5 Ratio 04/21/2016 Comp Metabolic Tbs857 Osmo 274 mOsmo 04/21/2016 Cbc With Differential [...] 32.0 pg 04/21/2016 Cbc With Differential Ord2 [place]% 9.1 % 04/21/2016 Cbc With Differential Ord2 [...] 1.39 K/ul 04/21/2016 Cbc With Differential Ord2 [place] ABS# 0.6 K/ul 04/21/2016 Cbc With Differential Ord2 Eos ABS# 0.1 K/ul 04/21/2016 Cbc With Differential Ord2 Baso ABS# 0.0 K/ul 04/21/2016 Bili D Ord93 BILI D 0.1 mg/dL 04/21/2016 Bili D Ord93 BILI I 0.4 mg/dL 04/21/2016 Vitamin D 25 Oh [id number] VITAMIN D, 25 HYDROXY 51.65 ng/mL Sed Rate Ord21 ESR 26 mm/hr 04/21/2016 C-Reactive Protein Qnt Crqnt CRP 0.1 mg/dl 04/21/2016 Comp Metabolic Tll189 NA 133 mEq/L 03/18/2016 Comp Metabolic Jqf533 K 4.9 mEq/L 03/18/2016 Comp Metabolic Fos710 CL 102 mEq/L 03/18/2016 Comp Metabolic Gke424 CO2 25.0 mEq/L 03/18/2016 Comp Metabolic Uvl827 ANION GAP 11 03/18/2016 Comp Metabolic Lko230 GLUCOSE 114 mg/dL 03/18/2016 Comp Metabolic Lql332 Creat 1.1 mg/dL 03/18/2016 Comp Metabolic Yqg593 eGFR 54 ml/min/1.73m2 03/18/2016 Comp Metabolic Hze904 BUN 23 mg/dL 03/18/2016 Comp Metabolic Vxw025 B/C Ratio 21.3 Ratio 03/18/2016 Comp Metabolic Cew588 CALCIUM 9.7 mg/dL 03/18/2016 Comp Metabolic Llx351 ALK PHOS 54 U/L 03/18/2016 Comp Metabolic Pno901 AST(SGOT) 21 U/L 03/18/2016 Comp Metabolic Eza397 ALT(SGPT) 15 U/L 03/18/2016 Comp Metabolic Dku083 BILI T 0.4 mg/dL 03/18/2016 Comp Metabolic Xrw448 ALBUMIN 4.4 g/dL 03/18/2016 Comp Metabolic Bwh441 TPRO 7.4 g/dL 03/18/2016 Comp Metabolic Mhj605 GLOB 3.0 g/dL 03/18/2016 Comp Metabolic Xzk710 A/G Ratio 1.5 Ratio 03/18/2016 Comp Metabolic Vbv826 Osmo 271 mOsmo 03/18/2016 Vitamin D 25 Oh Sjv9238 VITAMIN D, 25 HYDROXY 46.10 ng/mL Sed Rate Ord21 ESR 26 mm/hr 02/13/2016 Comp Metabolic Ggr794 NA 133 mEq/L 02/13/2016 Comp Metabolic Bzt719 K 4.8 mEq/L 02/13/2016 Comp Metabolic Aru164 CL 104 mEq/L 02/13/2016 Comp Metabolic Kwb421 CO2 23.0 mEq/L 02/13/2016 Comp Metabolic Jgn280 ANION GAP 11 02/13/2016 Comp Metabolic Llg085 GLUCOSE 104 mg/dL 02/13/2016 Comp Metabolic Jvu439 Creat 1.0 mg/dL 02/13/2016 Comp Metabolic Aez621 eGFR 56 ml/min/1.73m2 02/13/2016 Comp Metabolic Ytp994 BUN 25 mg/dL 02/13/2016 Comp Metabolic Hjx193 B/C Ratio 24.0 Ratio 02/13/2016 Comp Metabolic Wgp685 CALCIUM 9.1 mg/dL 02/13/2016 Comp Metabolic Sye177 ALK PHOS 43 U/L 02/13/2016 Comp Metabolic Xxq252 AST(SGOT) 21 U/L 02/13/2016 Comp Metabolic Vid238 ALT(SGPT) 17 U/L 02/13/2016 Comp Metabolic Sgd519 BILI T 0.4 mg/dL 02/13/2016 Comp Metabolic Xyk444 ALBUMIN 4.3 g/dL 02/13/2016 Comp Metabolic Acn683 TPRO 7.1 g/dL 02/13/2016 Comp Metabolic Tap237 GLOB 2.9 g/dL 02/13/2016 Comp Metabolic Wif075 A/G Ratio 1.5 Ratio 02/13/2016 Comp Metabolic Ttz925 Osmo 271 mOsmo 02/13/2016 C-Reactive Protein Qnt [...] 31.6 pg 02/13/2016 Cbc With Differential Ord2 Bullitt% 9.7 % 02/13/2016 Cbc With Differential Ord2 [...] 1.17 K/ul 02/13/2016 Cbc With Differential Ord2 Bullitt ABS# 0.6 K/ul 02/13/2016 Cbc With Differential Ord2 Eos ABS# 0.1 K/ul 02/13/2016 Cbc With Differential Ord2 Baso ABS# 0.0 K/ul 02/13/2016 Comp Metabolic Dgd686 NA 132 mEq/L 10/08/2015 Comp Metabolic Gak859 K 4.7 mEq/L 10/08/2015 Comp Metabolic Trb880 CL 101 mEq/L 10/08/2015 Comp Metabolic Ukl231 CO2 24.0 mEq/L 10/08/2015 Comp Metabolic Usq511 ANION GAP 12 10/08/2015 Comp Metabolic Qgu789 GLUCOSE 85 mg/dL 10/08/2015 Comp Metabolic Yav471 Creat 0.9 mg/dL 10/08/2015 Comp Metabolic Qgn567 eGFR 66 ml/min/1.73m2 10/08/2015 Comp Metabolic Jbx572 BUN 29 mg/dL 10/08/2015 Comp Metabolic Rdx512 B/C Ratio 32.2 Ratio 10/08/2015 Comp Metabolic Him444 CALCIUM 9.1 mg/dL 10/08/2015 Comp Metabolic Fuh634 ALK PHOS 40 U/L 10/08/2015 Comp Metabolic Ylq627 AST(SGOT) 18 U/L 10/08/2015 Comp Metabolic Xll167 ALT(SGPT) 14 U/L 10/08/2015 Comp Metabolic Yfq079 BILI T 0.3 mg/dL 10/08/2015 Comp Metabolic Ses708 ALBUMIN 4.1 g/dL 10/08/2015 Comp Metabolic Mew836 TPRO 6.8 g/dL 10/08/2015 Comp Metabolic Gzi729 GLOB 2.7 g/dL 10/08/2015 Comp Metabolic Sxj901 A/G Ratio 1.5 Ratio 10/08/2015 Comp Metabolic Ybm177 Osmo 270 mOsmo 10/08/2015 C-Reactive Protein Qnt [...] 96.0 fl 10/08/2015 Cbc With Differential Ord2 Bullitt% 10.5 % 10/08/2015 Cbc With Differential Ord2 [...] 1.24 K/ul 10/08/2015 Cbc With Differential Ord2 Bullitt ABS# 0.8 K/ul 10/08/2015 Cbc With Differential Ord2 Eos ABS# 0.0 K/ul 10/08/2015 Cbc With Differential Ord2 Baso ABS# 0.0 K/ul 10/08/2015 Sed Rate Ord21 ESR 20 mm/hr 10/08/2015 Vitamin D 25 Oh Dkr5767 VITAMIN D, 25 HYDROXY 54.28 ng/mL Tsh Ord6 hTSH II 1.72 uIU/mL 09/26/2015 Free T4 Wfh621 FREE T4 0.80 ng/dL 09/26/2015 Comp Metabolic Tpe707 NA 133 mEq/L 08/06/2015 Comp Metabolic Rra146 K 4.6 mEq/L 08/06/2015 Comp Metabolic Ceo503 CL 102 mEq/L 08/06/2015 Comp Metabolic Hfs767 CO2 24.0 mEq/L 08/06/2015 Comp Metabolic Rkg680 ANION GAP 12 08/06/2015 Comp Metabolic Xua976 GLUCOSE 105 mg/dL 08/06/2015 Comp Metabolic Vui295 Creat 1.0 mg/dL 08/06/2015 Comp Metabolic Ojb283 eGFR 60 ml/min/1.73m2 08/06/2015 Comp Metabolic Teo677 BUN 28 mg/dL 08/06/2015 Comp Metabolic Nnl711 B/C Ratio 28.6 Ratio 08/06/2015 Comp Metabolic Ezc511 CALCIUM 9.2 mg/dL 08/06/2015 Comp Metabolic Dgv897 ALK PHOS 42 U/L 08/06/2015 Comp Metabolic Wau143 AST(SGOT) 20 U/L 08/06/2015 Comp Metabolic Muu037 ALT(SGPT) 16 U/L 08/06/2015 Comp Metabolic Oau610 BILI T 0.3 mg/dL 08/06/2015 Comp Metabolic Vqm164 ALBUMIN 4.3 g/dL 08/06/2015 Comp Metabolic Cbw615 TPRO 6.9 g/dL 08/06/2015 Comp Metabolic Kfq628 GLOB 2.7 g/dL 08/06/2015 Comp Metabolic Kos424 A/G Ratio 1.6 Ratio 08/06/2015 Comp Metabolic Iew945 Osmo 272 mOsmo 08/06/2015 C-Reactive Protein Qnt Crqnt CRP 0.00 mg/dl 08/06/2015 Vitamin D 25 Oh Xwd2360 VITAMIN D, 25 HYDROXY 36.25 ng/mL Cbc [...] 20.4 % 08/06/2015 Cbc With Differential Ord2 Bullitt% 8.9 % 08/06/2015 Cbc With Differential Ord2 [...] 1.31 K/ul 08/06/2015 Cbc With Differential Ord2 Bullitt ABS# 0.6 K/ul 08/06/2015 Cbc With Differential [...] Ord93 BILI I 0.4 mg/dL 04/04/2015 %Hba1C Kpw581 % HbA1c 34119-8 5.7 % 04/04/2015 %Hba1C Bcg975 Gluc Ave 117 mg/dL 04/04/2015 Vitamin D 25 Oh Nuu8569 VITAMIN D, 25 HYDROXY 47.62 ng/mL C-Reactive [...] Ord2 RDW 13.0 % 04/04/2015 Comp Metabolic Zvk095 NA 132 mEq/L 04/04/2015 Comp Metabolic Bpd346 K 4.6 mEq/L 04/04/2015 Comp Metabolic Wlm079 CL 100 mEq/L 04/04/2015 Comp Metabolic Dav023 CO2 22.0 mEq/L 04/04/2015 Comp Metabolic Pdg634 ANION GAP 15 04/04/2015 Comp Metabolic Sci173 GLUCOSE 118 mg/dL 04/04/2015 Comp Metabolic Phd090 Creat 1.0 mg/dL 04/04/2015 Comp Metabolic Unl549 eGFR 60 ml/min/1.73m2 04/04/2015 Comp Metabolic Hzd792 BUN 18 mg/dL 04/04/2015 Comp Metabolic Ftb298 B/C Ratio 18.4 Ratio 04/04/2015 Comp Metabolic Hfo377 CALCIUM 9.6 mg/dL 04/04/2015 Comp Metabolic Ejs769 ALK PHOS 63 U/L 04/04/2015 Comp Metabolic Gdq769 AST(SGOT) 17 U/L 04/04/2015 Comp Metabolic Qak496 ALT(SGPT) 13 U/L 04/04/2015 Comp Metabolic Qna017 BILI T 0.5 mg/dL 04/04/2015 Comp Metabolic Gqa054 ALBUMIN 4.6 g/dL 04/04/2015 Comp Metabolic Lcx717 TPRO 7.4 g/dL 04/04/2015 Comp Metabolic Owg947 GLOB 2.8 g/dL 04/04/2015 Comp Metabolic Gbu063 A/G Ratio 1.6 Ratio 04/04/2015 Comp Metabolic Lhl949 Osmo 268 mOsmo 04/04/2015 Sed Rate Ord21 ESR 16 mm/hr 04/04/2015 Lipid Ord30 CHOL 214 mg/dL 04/04/2015 Lipid Ord30 HDL 61.0 mg/dl 04/04/2015 Lipid Ord30 TRIG 155 mg/dL 04/04/2015 Lipid Ord30 LDL 122 mg/dL 04/04/2015 Lipid Ord30 C/HDL 3.5 Ratio 04/04/2015 %Hba1C Nsj296 % HbA1c 45210-2 5.9 % 11/28/2014 %Hba1C Avq424 Gluc Ave 123 mg/dL 11/28/2014 Cbc With [...] Rate Ord21 ESR 19 mm/hr 11/27/2014 Hepatic Qjt915 ALBUMIN 4.4 g/dL 11/27/2014 Hepatic Ymp264 TPRO 7.0 g/dL 11/27/2014 Hepatic Fah021 GLOB 2.6 g/dL 11/27/2014 Hepatic Yzy879 A/G Ratio 1.7 Ratio 11/27/2014 Hepatic Fti656 ALK PHOS 63 U/L 11/27/2014 Hepatic Qgf425 ALT(SGPT) 14 U/L 11/27/2014 Hepatic Vdv542 AST(SGOT) 19 U/L 11/27/2014 Hepatic Yls702 BILI T 0.4 mg/dL 11/27/2014 Hepatic Pdk105 BILI D 0.1 mg/dL 11/27/2014 Hepatic Rrb400 BILI I 0.3 mg/dL 11/27/2014 Lipid Ord30 [...] Formatting Model/CDA Sections, Assigned to/Tabitha Velasquez CPT-4: [id number] 12/29/2017 PPPS, SUBSEQ VISIT CPT -4: G0439 09/17/2017 PPPS, SUBSEQ VISIT CPT -4: G0439 08/21/2016 PNEUMOCOCCAL VACC [address]: 20337997 CPT-4: 04701 02/20/2016 ADMIN PNEUMOCOCCAL VACCINE SNOMED CT: 56394811 CPT-4: G0009 02/20/2016 ADMIN INFLUENZA VIRUS VAC CPT-4: G0008 01/23/2016 FLU VACC 4 KATIE 3 YRS PLUS IM SNOMED CT: 62179406 CPT-4: 16270 01/23/2016 PPPS, SUBSEQ VISIT CPT -4: G0439 07/19/2015 Vital Signs Date Vital 01/12/2018 Blood Pressure 1: 124/70 Code : 8480-6 BMI: 30.2 Code : 85879-1 Heart Rate 1 : 59 bpm Height: 5'1" SpO2: 98% Weight: 160 lbs 12/29/2017 Blood Pressure 1: 148/82 Code : 8480-6 BMI: 30.4 Code : 42716-7 Heart Rate 1 : 60 bpm Height: 5'1" SpO2: 99% Weight: 161 lbs 09/17/2017 Height: Weight: 08/25/2017 Blood Pressure 1: 130/72 Code : 8480-6 BMI: 29.9 Code : 18858-4 Heart Rate 1 : 70 bpm Height: 5'1" SpO2: 93% Weight: 158 lbs 07/21/2017 Blood Pressure 1: 150/84 Code : 8480-6 BMI: 29.5 Code : 38001-2 Heart Rate 1 : 62 bpm Height: 5'1" SpO2: 98% Weight: 156 lbs 06/17/2017 Blood Pressure 1: 148/86 Code : 8480-6 BMI: 29.5 Code : 32426-5 Heart Rate 1 : 64 bpm Height: 5'1" SpO2: 98% Weight: 156 lbs 02/17/2017 Blood Pressure 1: 144/86 Code : 8480-6 BMI: 28.7 Code : 88849-3 Heart Rate 1 : 64 bpm Height: 5'1" SpO2: 96% Weight: 152 lbs 01/02/2017 Blood Pressure 1: 132/78 Code : 8480-6 BMI: 28.3 Code : 31518-4 Heart Rate 1 : 71 bpm Height: 5'1" SpO2: 97% Weight: 150 lbs 12/05/2016 Blood Pressure 1: 140/76 Code : 8480-6 BMI: 29.5 Code : 87724-1 Heart Rate 1 : 66 bpm Height: 5'1" SpO2: 98% Weight: 156 lbs 08/21/2016 Blood Pressure 1: 142/78 Code : 8480-6 BMI: 29.9 Code : 30722-7 Heart Rate 1 : 62 bpm Height: 5'1" SpO2: 98% Waist Measure (cm): 79 cm Weight: 158 lbs 08/19/2016 Blood Pressure 1: 142/78 Code : 8480-6 BMI: 29.9 Code : 42141-0 Heart Rate 1 : 62 bpm Height: 5'1" SpO2: 98% Weight: 158 lbs 05/20/2016 Blood Pressure 1: 152/76 Code : 8480-6 Blood Pressure 1: 144/80 Code: 8480-6 BMI: 29.3 Code: 50164-1 Heart Rate 1: 60 bpm Height: 5'1" SpO2: 95% Weight: 155 lbs 01/23/2016 Blood Pressure 1: 138/78 Code : 8480-6 BMI: 29.7 Code : 38778-0 Heart Rate 1 : 64 bpm Height: 5'1" SpO2: 98% Weight: 157 lbs 09/26/2015 Blood Pressure 1: 136/76 Code : 8480-6 BMI: 28.3 Code : 36602-4 Heart Rate 1 : 70 bpm Height: 5'1" SpO2: 98% Weight: 150 lbs 08/23/2015 Blood Pressure 1: 126/78 Code : 8480-6 BMI: 27.8 Code : 74637-0 Heart Rate 1 : 68 bpm Height: 5'1" SpO2: 97% Weight: 147 lbs 07/19/2015 Blood Pressure 1: 146/70 Code : 8480-6 BMI: 26.8 Code : 12933-7 Heart Rate 1 : 58 bpm Height: 5'1" SpO2: 96% Waist Measure (cm): 84 cm Weight: 142 lbs 04/17/2015 Blood Pressure 1: 132/62 Code : 8480-6 BMI: 25.3 Code : 43231-9 Heart Rate 1 : 98 bpm Height: 5'1" SpO2: 97% Weight: 134 lbs 03/15/2015 Blood Pressure 1: 158/72 Code : 8480-6 Blood Pressure 1: 160/70 Code: 8480-6 BMI: 25.5 Code: 08330-1 Heart Rate 1: 74 bpm Heart Rate 1: 72 bpm Height: 5'1" Height: SpO2: 98% Weight: 135 lbs Weight: 02/06/2015 Blood Pressure 1: 142/82 Code : 8480-6 BMI: 25.5 Code : 21665-6 Heart Rate 1 : 82 bpm Height: 5'1" SpO2: 96% Weight: 135 lbs 12/13/2014 Blood Pressure 1: 136/64 Code : 8480-6 BMI: 24.9 Code : 44809-7 Heart Rate 1 : 86 bpm Height: 5'1" SpO2: 95% Weight: 132 lbs 10/11/2014 Blood Pressure 1: 140/80 Code : 8480-6 BMI: 25.1 Code : 33915-4 Heart Rate 1 : 72 bpm Height: [...] Present Encounters Encounter Performer Location Codes Date ([id number]) 23526 EST. PATIENT, LEVEL III Diagnosis: Essential (primary) hypertension[ICD10: I10] Diagnosis: Type 2 diabetes mellitus without complications[ICD10: E11.9] Diagnosis: Encounter for immunization[ICD10: Z23] Diagnosis: Muscle weakness (generalized)[ICD10: M62.81] Maria Luisa Echeverria MD, [facility] CPT-4: 54574 01/12/2018 ([id number]) 16464 EST. PATIENT, LEVEL IV Diagnosis: Essential (primary) hypertension[ICD10: I10] Diagnosis: Type 2 diabetes mellitus without complications[ICD10: E11.9] Diagnosis: Encounter for immunization[ICD10: Z23] Diagnosis: Muscle weakness (generalized)[ICD10: M62.81] Maria Luisa Echeverria MD, [facility] CPT-4: 45326 12/29/2017 ([id number]) 79464 EST. PATIENT, LEVEL IV Diagnosis: Essential (primary) hypertension[ICD10: I10] Diagnosis: Muscle weakness (generalized)[ICD10: M62.81] Diagnosis: 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 artery[ICD10: I66.01 ] [facility] CPT-4: 12699 08/25/2017 ([id number]) 39026 EST. PATIENT, LEVEL IV Diagnosis: Essential (primary) hypertension[ICD10: I10] Diagnosis: 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 artery[ICD10: I66.01 ] [facility] CPT-4: 13326 07/21/2017 [id number] 49470 EST. PATIENT, LEVEL IV Diagnosis: Essential (primary) hypertension[ICD10: I10] Diagnosis: Type 2 diabetes mellitus without complications[ICD10: E11.9] Diagnosis: 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 artery[ICD10: I66.01 ] [facility] CPT-4: 42119 06/17/2017 ([id number]) 79113 EST. PATIENT, LEVEL IV Diagnosis: Essential (primary) hypertension[ICD10: I10] Diagnosis: Muscle weakness (generalized)[ICD10: M62.81] Diagnosis: Mixed hyperlipidemia[ICD10: E78.2] Maria Luisa Echeverria MD, [facility] CPT-4: 24627 02/17/2017 ([id number]) 05649 EST. PATIENT, LEVEL III Diagnosis: Essential (primary) hypertension[ICD10: I10] Diagnosis: Muscle weakness (generalized)[ICD10: M62.81] Diamond Echeverria MD, [facility] CPT-4: 17581 01/02/2017 ([id number]) 52765 EST. PATIENT, LEVEL IV Diagnosis: Muscle weakness (generalized)[ICD10: M62.81] Diagnosis: Cerebral infarction, unspecified[ICD10: I63.9] Diagnosis: Essential (primary) hypertension[ICD10: I10] Diagnosis: Gastro-esophageal reflux disease without esophagitis[ICD10: K21.9] Diagnosis: Allergic rhinitis due to pollen[ICD10: J30.1] Diamond Echeverria MD, [facility] CPT-4: 18386 12/05/2016 ([id number]) 09387 EST. PATIENT, LEVEL IV Diagnosis: Essential (primary) hypertension[ICD10: I10] Diagnosis: Type 2 diabetes mellitus without complications[ICD10: E11.9] Maria Luisa Echeverria MD, [facility] CPT-4: 80934 08/19/2016 15541 EST. PATIENT, LEVEL IV Diagnosis: Essential (primary) hypertension[ICD10: I10] Diagnosis: Type 2 diabetes mellitus without complications[ICD10: E11.9] Diagnosis: Mixed hyperlipidemia[ICD10: E78.2] Ashley Echeverria MD, [facility] CPT-4: 12305 05/20/2016 ([id number]) 70391 EST. PATIENT, LEVEL IV Diagnosis: Type 2 diabetes mellitus without complications[ICD10: E11.9] Diagnosis: Family history of other endocrine, nutritional and metabolic diseases [ICD10: Z83.49] Diagnosis: Other fatigue[ICD10: R53.83] Diagnosis: Abnormal weight gain[ICD10: R63.5] Diagnosis: Actinic keratosis[ICD10: L57.0] Maria Luisa Echeverria MD, [facility] CPT- 4: 97376 01/23/2016 [id number]) 45877 EST. PATIENT, LEVEL IV Diagnosis: Family history of other endocrine, nutritional and metabolic diseases [ICD10: Z83.49] Diagnosis: Other fatigue[ICD10: R53.83] Diagnosis: Abnormal weight gain[ICD10: R63.5] Diagnosis: Actinic keratosis[ICD10: L57.0] Diagnosis: Type 2 diabetes mellitus without complications[ICD10: E11.9] Maria Luisa Echeverria MD, [facility] CPT-4: 56081 09/26/2015 ([id number]) 82611 EST. PATIENT, LEVEL IV Diagnosis: Essential (primary) hypertension[ICD10: I10] Diagnosis: Type 2 diabetes mellitus without complications[ICD10: E11.9] Diagnosis: Other depressive episodes[ICD10: F32.8] Diagnosis: Vitamin D deficiency, unspecified[ICD10: E55.9] Maria Luisa Echeverria MD, [facility] CPT-4: 28173 08/23/2015 ([id number]) 93460 EST. PATIENT, LEVEL IV Diagnosis: Essential (primary) hypertension[ICD10: I10] Diagnosis: Benign paroxysmal vertigo, unspecified ear[ICD10: H81.10] Diagnosis: Type 2 diabetes mellitus without complications[ICD10: E11.9] Maria Luisa Echeverria MD, [facility] CPT-4: 62181 04/17/2015 ([id number]) 66450 EST. PATIENT, LEVEL III Diagnosis: Essential (primary) hypertension[ICD10: I10] Diagnosis: Benign paroxysmal vertigo, unspecified ear[ICD10: H81.10] Diamond Echeverria MD [facility] CPT-4: 10265 03/15/2015 ([id number]) 80417 EST. PATIENT, LEVEL III Diagnosis: Essential (primary) hypertension[ICD10: I10] Diagnosis: Edema, unspecified[ICD10: R60.9] Diamond Echeverria MD, [facility] CPT-4: 15931 02/06/2015 ([id number]) 28407 EST. PATIENT, LEVEL IV Diagnosis: ESSENTIAL HYPERTENSION[ICD9: 401.9] Diagnosis: HYPERLIPIDEMIA[ICD9: 272.4] Diagnosis: DEPRESSIVE DISORDER NEC[ICD9: 311] Diagnosis: ESOPHAGEAL REFLUX[ICD9: 530.81] Diagnosis: RESTLESS LEGS SYNDROME[ICD9: 333.94] [facility] CPT-4: 48706 12/13/2014 ([id number]) OFFICE VISIT, NEW - LEVEL 4 Diagnosis: ESSENTIAL HYPERTENSION[ICD9: 401.9] Diagnosis: HYPERLIPIDEMIA[ICD9: 272.4] Diagnosis: DEPRESSIVE DISORDER NEC[ICD9: 311] Diagnosis: ESOPHAGEAL REFLUX[ICD9: 530.81] Diagnosis: RESTLESS LEGS SYNDROME[ICD9: 333.94] [facility] CPT-4: 97731 10/11/2014 Plan of Care Planned Activity Notes Codes Status Date Visit Plan: Hypertension - improved control - continue with current medications, continue with no added salt diet. Pt has been encouraged to exercise daily. The pt has been advised to call the office if there are any acute concerns about change in blood pressure readings at home. 01/12/2018 Appointment: Maria Luisa Echeverria WPtel: [facility] (15 min) Moderate 01/12/2018 Patient Education: Patient [...] she stopped therapy when she left [facility]. She states that she does struggle with her strength. She states that she would rather do activities on her own rather than going to physical therapy. high dose flu shot today due to autoimmune deficiency 12/29/2017 Appointment: Maria Luisa Echeverria WPtel: [facility] ([place] min) Moderate 12/29/2017 Patient Education: Patient [...] she stopped therapy when she left [facility]. She states that she does struggle with her strength. She states that she would rather do activities on her own rather than going to physical therapy. 08/25/2017 Appointment: Maria Luisa Echeverria WPtel: [address] [place] [id number] (15 min) Moderate 08/25/2017 Patient Education: Patient [...] 07/21/2017 Appointment: Maria Luisa Echeverria WPtel: [phone] [facility] (15 min) Moderate 07/21/2017 Patient Education: Patient Medication Summary Completed 07/21/2017 Visit Plan: Right Middle Cerebral artery stroke - appt with neurology with Dr. Macario at [facility]rology. Gait instability - appt with outpt physical therapy Hypertension - stable - continue with current treatment - monitor symptoms DM - diet controlled - 06/17/2017 Appointment: Maria Luisa Echeverria WPtel: [phone] [facility] (15 min) Moderate 06/17/2017 Patient Education: Patient [...] 02/17/2017 Appointment: [phone] (15 min) Moderate 02/17/2017 Patient Education: Patient Medication Summary Completed 02/17/2017 Care Plan: Referral Order SNOMED-CT : [id number] Pending 02/17/2017 Visit Plan: Hypertension - well controlled - continue with current medications, continue with no added salt diet. Pt has been encouraged to exercise daily. The pt has been advised to call the office if there are any acute concerns about change in blood pressure readings at home. Weakness-recent stroke-strength improving-no changes 01/02/2017 Appointment: Diamond Sawyer WPtel: [phone] (30 min) Complex 01/02/2017 Patient Education: Patient Medication Summary Completed 01/02/2017 Visit Plan: Hypertension - well controlled - continue with current medications, continue with no added salt diet. Pt has been encouraged to exercise daily. The pt has been advised to call the office if there are any acute concerns about change in blood pressure readings at home. Generalized weakness-gait waihxznizgr-XXQ-ozryysvw PT-patient to use 4 wheeled walker GERD- dysphagia-refer for speech eval-start pepcid twice daily Allergies-chronic- restart allergy pill as directed 12/05/2016 Appointment: Diamond Sawyer WPtel: [phone] (15 min) Moderate 12/05/2016 Patient Education: [...] surrogate. 08/21/2016 Appointment: Ashley Wooten WPtel: [phone] [facility] [facility] - Annual Wellness Visit 08/21/2016 [...] 08/19/2016 Appointment: Maria Luisa Echeverria WPtel: [phone] [facility] (15 min) Moderate 08/19/2016 Patient Education: Patient [...] medications. 05/20/2016 [phone] ([facility] Mod[facility] 05/20/2016 Patient Education: [...] 01/23/2016 Appointment: [facility] (15 min) Moderate 01/23/2016 Patient Education: Patient [...] 09/26/2015 Appointment: [facility] Lu[facility]cheverria [phone] [place] (15 min) Moderate 09/26/2015 Patient Education: [...] 08/23/2015 Appointment: [facility] [place] (15 min) Moderate 08/22/2015 Appointment: [phone] (15 min) Moderate 08/15/2015 Visit Plan: Medicare [...] for health care surrogate. 07/19/2015 Appointment: [facility] - Annual Wellness Visit 07/19/2015 [...] 04/17/2015 Appointment: [phone] (15 min) Moderate 04/17/2015 Patient Education: Patient [...] medications. 12/13/2014 Appointment: Maria Luisa Echeverria WPtel: [address] [place] [id number] (15 min) Moderate 12/13/2014 Patient Education: Patient [...] 10/11/2014 Appointment: [phone] [place] New Patient 10/11/2014 Appointment: Maria Luisa Echeverria WPtel: [phone] [facility] (15 min) Moderate 10/11/2014 Patient Education: Patient [...] exposure. No change in current medications. . Hypertension - well controlled - [...] she stopped therapy [facility]. She states that she does struggle with [...] monitor symptoms DM - diet controlled - stay off of the amlodipine and start [...] she stopped therapy when she left [facility]. She states that she does struggle with [...] readings are starting to become less controlled. DECREASE SODIUM/SALT INTAKE COMPRESSION STOCKINGS INCREASE WATER [...] to further attempt to reduce peripheral edema. stop AMLODIPINE - due to swelling in [...] continue with supplementation as previously directed. . Hypertension - improved control - continue [...] blood pressure readings at home. Generalized weakness-gait yvvrwlogjre-TVL-smxmzuve PT-patient to use 4 wheeled walker PLTT-xjyoanysq-sxsrc for speech eval-start pepcid twice daily Tsjdhqrpv-vhixdkl-zgcglmw allergy pill as directed . Medicare Exam [...] Gait instability - continue with therapy. . Medicare Exam - today we [...]
--- OUTSIDE RECORDS SUMMARY | 2018-07-02 14:42 | XMS REPORT | CCD ---
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 Name Role Phone PP Unavailable CCM Unavailable Summary Purpose Interface Exchange Insurance Providers Payer name Policy type / Coverage type Covered green party ID Effective Begin Date Effective End Date WPS Medicare Part B Medicare Part B [id number] 2017 Unknown [facility] Medicare Part B [id number] Unknown Family history Mother Diagnosis Age At [...] Unknown 5 10/11/[address]: 241900950 Never smoker 10/11/[address]: 548567212 Never drinks alcohol 10/11/2014 Allergies, Adverse Reactions, [...] Fill Instructions Plavix 75 mg tablet RxNorm: 379133 Tablet(s) TAKE ONE TABLET BY MOUTH DAILY 04/19/2018 04/13/2019 Active Coreg 3.125 mg tablet RxNorm: 973457 TAKE ONE-HALF TABLET BY MOUTH TWICE A DAY 04/19/2018 09/15/2018 Active clonazepam 0.5 mg tablet RxNorm: 151592 Tablet(s) TAKE 2 TABLETS BY MOUTH AT BEDTIME NEEDED 04/19/2018 07/17/2018 Active OneTouch Ultra Test strips RxNorm: TEST 1 TIME DAILY 201804/08/2019 Active Benicar 40 mg tablet RxNorm: 831382 1 Tablet(s) PO daily 201707/23/2018 Active This replaces losartan Benicar 40 mg tablet RxNorm: 499800 1 Tablet(s) PO daily 201702/23/2018 Inactive This replaces losartan clonazepam 0.5 mg tablet RxNorm: 142916 Tablet(s) TAKE 2 TABLETS BY MOUTH AT BEDTIME NEEDED 01/20/2018 04/18/2018 Inactive Coreg 3.125 mg tablet RxNorm: 729028 1/2 Tablet(s) PO BID 201704/18/2018 Inactive Mirapex 0.5 mg tablet RxNorm: 995725 TAKE ONE TABLET BY MOUTH EVERY NIGHT AT BEDTIME 12/21/2017 05/19/2018 Active folic acid 1 mg tablet RxNorm: 611946 TAKE ONE TABLET BY MOUTH DAILY 12/11/2017 12/05/2018 Active Plavix 75 mg tablet RxNorm: 899425 TAKE ONE TABLET BY MOUTH DAILY 12/11/2017 04/18/2018 Inactive Aspirin Low Dose 81 mg tablet,delayed release RxNorm: 456977 TAKE ONE TABLET BY MOUTH DAILY 11/24/2017 12/28/2017 Inactive Request already responded to by other means (e.g. phone or fax) Aspirin Low Dose 81 mg tablet,delayed release RxNorm: 613498 1 Tablet(s) PO daily 11/18/2017 11/17/2017 Inactive Aspirin Low Dose 81 mg tablet,delayed release RxNorm: 571965 1 Tablet(s) PO daily 11/18/2017 11/23/2017 Inactive clonazepam 0.5 mg tablet RxNorm: 858858 Tablet(s) TAKE 2 TABLETS BY MOUTH AT BEDTIME NEEDED 10/23/2017 04/18/2018 Inactive Lomotil 2.5 mg-0.025 mg tablet RxNorm: 0650654 1 Tablet(s) PO daily as needed 09/28/2017 03/26/2018 Inactive pravastatin 80 mg tablet RxNorm: 166474 TAKE ONE TABLET BY MOUTH EVERY EVENING 08/19/2017 11/11/2018 Active clonazepam 0.5 mg tablet RxNorm: 583662 Tablet(s) TAKE 2 TABLETS BY MOUTH AT BEDTIME NEEDED 07/24/2017 10/20/2017 Inactive Mirapex 0.5 mg tablet RxNorm: 579485 TAKE ONE TABLET BY MOUTH EVERY NIGHT AT BEDTIME 07/23/2017 12/19/2017 Inactive Vitamin D2 50,000 unit capsule RxNorm: 618596 1 Capsule(s) PO QW 07/22/2017 07/21/2017 Inactive Vitamin D2 50,000 unit capsule RxNorm: 711135 1 Capsule(s) PO QW 07/22/2017 10/19/2017 Inactive amlodipine 5 mg tablet RxNorm: 734308 1 Tablet(s) PO daily 01/201812/28/2017 Inactive Refill not appropriate Prozac 40 mg capsule RxNorm: 273380 TAKE ONE CAPSULE BY MOUTH DAILY 06/24/2017 06/18/2018 Active Plavix 75 mg tablet RxNorm: 402975 TAKE ONE TABLET BY MOUTH DAILY 06/18/2017 12/10/2017 Inactive Lomotil 2.5 mg-0.025 mg tablet RxNorm: 0505378 1 Tablet(s) PO daily as needed 06/04/2017 11/17/2017 Inactive losartan 100 mg tablet RxNorm: 559714 TAKE ONE TABLET BY MOUTH DAILY 05/11/2017 02/23/2018 Inactive OneTouch Ultra Test strips RxNorm: TEST 1 TIME DAILY 201704/13/2018 Inactive clonazepam 0.5 mg tablet RxNorm: 644189 Tablet(s) TAKE 2 TABLETS BY MOUTH AT BEDTIME NEEDED 04/14/2017 11/17/2017 Inactive Lomotil 2.5 mg-0.025 mg tablet RxNorm: 8859858 1 Tablet(s) PO daily as needed 03/17/2017 06/03/2017 Inactive Mirapex 0.5 mg tablet RxNorm: 194106 TAKE ONE TABLET BY MOUTH EVERY NIGHT AT BEDTIME 01/19/2017 07/17/2017 Inactive clonazepam 0.5 mg tablet RxNorm: 416688 Tablet(s) TAKE 2 TABLETS BY MOUTH AT BEDTIME NEEDED 01/12/2017 04/09/2017 Inactive tramadol 50 mg tablet RxNorm: 931698 1-2 Tablet(s) PO Q6 PRN pain 12/31/2016 08/24/2017 Inactive folic acid 1 mg tablet RxNorm: 207897 TAKE ONE TABLET BY MOUTH DAILY 12/24/2016 12/10/2017 Inactive tramadol 50 mg tablet RxNorm: 031990 1-2 Tablet(s) PO Q6 PRN pain 12/12/2016 12/16/2016 Inactive tramadol 50 mg tablet RxNorm: 914911 1-2 Tablet(s) PO Q6 PRN pain 12/12/2016 12/11/2016 Inactive clonazepam 0.5 mg tablet RxNorm: 812310 Tablet(s) TAKE 2 TABLETS BY MOUTH AT BEDTIME NEEDED 12/09/2016 01/11/2017 Inactive pravastatin 80 mg tablet RxNorm: 457556 TAKE ONE TABLET BY MOUTH EVERY EVENING 11/11/2016 08/07/2017 Inactive Mirapex 0.5 mg tablet RxNorm: 669532 TAKE ONE TABLET BY MOUTH EVERY NIGHT AT BEDTIME 10/29/2016 01/18/2017 Inactive Prozac 40 mg capsule RxNorm: 948640 TAKE ONE CAPSULE BY MOUTH DAILY 10/29/2016 06/23/2017 Inactive spironolactone 25 mg tablet RxNorm: 870831 TAKE ONE TABLET BY MOUTH DAILY 10/29/2016 12/04/2016 Inactive clonazepam 0.5 mg tablet RxNorm: 993599 Tablet(s) TAKE 2 TABLETS BY MOUTH AT BEDTIME NEEDED 09/24/2016 11/22/2016 Inactive Lomotil 2.5 mg-0.025 mg tablet RxNorm: 3404536 1 Tablet(s) PO daily as needed 07/30/2016 01/23/2017 Inactive sucralfate 1 gram tablet RxNorm: 106516 TAKE ONE-HALF TABLET BY MOUTH TWO TIMES A DAY ONE HOUR BEFORE MEALS 07/28/201608/24 Inactive losartan 100 mg tablet RxNorm: 702058 TAKE ONE TABLET BY MOUTH DAILY 07/28/2016 01/23/2017 Inactive Lialda 1.2 gram tablet,delayed release RxNorm: 143451 3 Tablet(s) PO daily 07/02/2016 08/24/2017 Inactive Mirapex 0.5 mg tablet RxNorm: 295880 TAKE ONE TABLET BY MOUTH EVERY NIGHT AT BEDTIME 06/27/2016 10/24/2016 Inactive clonazepam 0.5 mg tablet RxNorm: 980152 Tablet(s) TAKE 2 TABLETS BY MOUTH AT BEDTIME NEEDED 06/27/2016 01/11/2017 Inactive clonazepam 0.5 mg tablet RxNorm: 227862 Tablet(s) TAKE 2 TABLETS BY MOUTH AT BEDTIME NEEDED 04/29/2016 06/25/2016 Inactive folic acid 1 mg tablet RxNorm: 035096 TAKE ONE TABLET BY MOUTH DAILY 02/28/2016 11/23/2016 Inactive clonazepam 0.5 mg tablet RxNorm: 902121 Tablet(s) TAKE 2 TABLETS BY MOUTH AT BEDTIME NEEDED 02/26/2016 01/11/2017 Inactive OneTouch Ultra Test strips RxNorm: TEST ONCE DAILY 02/25/2016 08/22/2016 Inactive sucralfate 1 gram tablet RxNorm: 938344 TAKE ONE-HALF TABLET BY MOUTH TWO TIMES A DAY ONE HOUR BEFORE MEALS 01/28/201607/25 Inactive Mirapex 0.5 mg tablet RxNorm: 796952 TAKE ONE TABLET BY MOUTH EVERY NIGHT AT BEDTIME 01/28/2016 06/25/2016 Inactive spironolactone 25 mg tablet RxNorm: 884870 TAKE ONE TABLET BY MOUTH DAILY 01/28/2016 10/23/2016 Inactive Lomotil 2.5 mg-0.025 mg tablet RxNorm: 9269015 1 Tablet(s) PO daily as needed 12/05/2015 01/11/2017 Inactive Klor-Con M20 mEq tablet,extended release RxNorm: 136860 TAKE ONE TABLET BY MOUTH THREE TIMES A DAY 12/05/2015 08/24/2017 Inactive losartan 100 mg tablet RxNorm: 991696 TAKE ONE TABLET BY MOUTH DAILY 11/22/2015 07/27/2016 Inactive amlodipine 5 mg tablet RxNorm: 839639 TAKE ONE TABLET BY MOUTH DAILY 11/13/2015 11/06/2016 Inactive Refill not appropriate clonazepam 0.5 mg tablet RxNorm: 108678 Tablet(s) TAKE 2 TABLETS BY MOUTH AT BEDTIME NEEDED 11/08/2015 01/11/2017 Inactive clonazepam 0.5 mg tablet RxNorm: 578200 Tablet(s) TAKE 2 TABLETS BY MOUTH AT BEDTIME NEEDED 11/02/2015 01/29/2016 Inactive Prozac 40 mg capsule RxNorm: 438569 1 Capsule(s) PO daily 10/3010/24/2016 Inactive pravastatin 80 mg tablet RxNorm: 509261 1 Tablet(s) PO QPM 10/23/2016 Inactive OneTouch Ultra Test strips RxNorm: TEST ONCE DAILY 10/30/2015 01/27/2016 Inactive Imuran 50 mg tablet RxNorm: 233978 1.5 (75) Tablet(s) PO daily 08/17/2015 08/10/2016 Inactive K75.4 clonazepam 0.5 mg tablet RxNorm: 364783 Tablet(s) TAKE 2 TABLETS BY MOUTH AT BEDTIME NEEDED 08/10/2015 01/11/2017 Inactive Imuran 50 mg tablet RxNorm: 637137 1.5 (75) Tablet(s) PO daily 08/10/2015 08/16/2015 Inactive OneTouch Ultra Test strips RxNorm: TEST ONCE DAILY 08/09/2015 10/29/2015 Inactive Vitamin D2 50,000 unit capsule RxNorm: 700553 1 Capsule(s) PO QW 08/07/2015 01/11/2017 Inactive Mirapex 0.5 mg tablet RxNorm: 747083 Tablet(s) TAKE ONE TABLET BY MOUTH EVERY NIGHT AT BEDTIME 07/19/2015 01/14/2016 Inactive Lomotil 2.5 mg-0.025 mg tablet RxNorm: 8228379 1 Tablet(s) PO daily as needed 06/06/2015 01/11/2017 Inactive clonazepam 0.5 mg tablet RxNorm: 217410 Tablet(s) TAKE 2 TABLETS BY MOUTH AT BEDTIME NEEDED 05/10/2015 08/06/2015 Inactive sucralfate 1 gram tablet RxNorm: 408436 TAKE ONE-HALF TABLET BY MOUTH TWO TIMES A DAY ONE HOUR BEFORE MEALS 05/04/201501/26 Inactive meclizine 25 mg tablet RxNorm: 773391 1/2-1 Tablet(s) PO Q6 PRN 03/15/2015 08/24/2017 Inactive spironolactone 25 mg tablet RxNorm: 414609 1 Tablet(s) PO daily 03/14/2015 01/27/2016 Inactive spironolactone 25 mg tablet RxNorm: 398430 1 Tablet(s) PO daily 03/14/2015 03/13/2015 Inactive clonazepam 0.5 mg tablet RxNorm: 569337 TAKE 2 TABLETS BY MOUTH AT BEDTIME NEEDED 02/08/2015 05/02/2015 Inactive folic acid 1 mg tablet RxNorm: 874822 1 Tablet(s) PO daily 02/01/2016 Inactive clonazepam 0.5 mg tablet RxNorm: 128869 TAKE 2 TABLETS BY MOUTH AT BEDTIME NEEDED 02/06/2015 02/08/2015 Inactive amlodipine 10 mg tablet RxNorm: 119882 1/2 Tablet(s) PO daily 02/06/2015 07/18/2015 Inactive this replaces her 5mg pill OneTouch Ultra Test strips RxNorm: TEST ONCE DAILY 01/30/2015 07/28/2015 Inactive Mirapex 0.5 mg tablet RxNorm: 327275 TAKE ONE TABLET BY MOUTH EVERY NIGHT AT BEDTIME 01/29/2015 07/18/2015 Inactive sucralfate 1 gram tablet RxNorm: 491221 TAKE ONE-HALF TABLET BY MOUTH TWO TIMES A DAY ONE HOUR BEFORE MEALS 01/11/201504/10 Inactive OneTouch Ultra Test strips RxNorm: 1 Miscellaneous daily 11/1401/29/2015 Inactive amlodipine 10 mg tablet RxNorm: 878425 1 Tablet(s) PO daily 02/05/2015 Inactive this replaces her 5mg pill clonazepam 0.5 mg tablet RxNorm: 516438 2 Tablet(s) PO QHS 10/201402/05/2015 Inactive sucralfate 1 gram tablet RxNorm: 490991 1/2 Tablet(s) PO BID 1 hour before meal 10/11/2014 01/08/2015 Inactive losartan 100 mg tablet RxNorm: 672498 1 Tablet(s) PO daily 04/201410/05/2015 Inactive amlodipine 5 mg tablet RxNorm: 605993 1 Tablet(s) PO daily 04/201410/30/2014 Inactive Imuran 50 mg tablet RxNorm: 383371 1.5 (75) Tablet(s) PO daily 10/11/2014 08/09/2015 Inactive Lomotil 2.5 mg-0.025 mg tablet RxNorm: 5017228 1 Tablet(s) PO daily as needed 10/11/2014 06/05/2015 Inactive pravastatin 80 mg tablet RxNorm: 235129 1 Tablet(s) PO QPM 04/201410/05/2015 Inactive Klor-Con M20 mEq tablet,extended release RxNorm: 742789 1 Tablet(s) PO TID 10/11/2014 10/05/2015 Inactive Mirapex 0.5 mg tablet RxNorm: 786884 1 Tablet(s) PO QHS 201401/28/2015 Inactive Prozac 40 mg capsule RxNorm: 226604 1 Capsule(s) PO daily 10/1110/05/2015 Inactive Colazal 750 mg capsule RxNorm: 824842 1 Capsule(s) PO TID No Start Date Active Combigan 0.2 %-0.5 % eye drops RxNorm: 010270 1 Drop(s) ophthalmic (eye) BID No Start Date Active Lumigan 0.01 % eye drops RxNorm: 8550526 1 Drop(s) OPH QHS No Start Date Active Prolia 60 mg/mL subcutaneous syringe RxNorm: 859967 1 Milliliter(s) SQ every 6 months No Start Date Active Vitamin D2 50,000 unit capsule RxNorm: 474717 1 Capsule(s) PO QW No Start Date 08/06/2015 Inactive OneTouch Ultra Test strips RxNorm: 1 Miscellaneous daily No Start Date 11/13/2014 Inactive Plavix 75 mg tablet RxNorm: 358000 1 Tablet(s) PO daily No Start Date 06/17/2017 Inactive Lomotil 2.5 mg-0.025 mg tablet RxNorm: 4328413 1 Tablet(s) PO daily as needed No Start Date 10/10/2014 Inactive folic acid 1 mg tablet RxNorm: 286305 1 Tablet(s) PO daily No Start Date 02/06/2015 Inactive amlodipine 5 mg tablet RxNorm: 445414 1 Tablet(s) PO daily No Start Date 10/10/2014 Inactive Imuran 50 mg tablet RxNorm: 640611 1 1/2 (75) Tablet(s) PO daily No Start Date 10/10/2014 Inactive Boniva 3 mg/3 mL intravenous syringe RxNorm: 509997 Milliliter(s) IV No Start Date 07/18/2015 Inactive potassium chloride 20 meq RxNorm: 439567 1 PO TID No Start Date 10/10/2014 Inactive sucralfate 1 gram tablet RxNorm: 742738 1/2 Tablet(s) PO BID 1 hour before meal No Start Date 10/10/2014 Inactive losartan 100 mg tablet RxNorm: 061736 1 Tablet(s) PO daily No Start Date 10/10/2014 Inactive Vitamin D3 2,000 unit tablet RxNorm: 976039 1 Tablet(s) PO daily No Start Date 08/23/2015 Inactive Calcium + D oral RxNorm: 386380 oral No Start Date 08/24/2017 Inactive Prozac 40 mg capsule RxNorm: 459646 1 Capsule(s) PO daily No Start Date 10/10/2014 Inactive timolol 0.5 % eye drops RxNorm: 372981 1 Drop(s) OPH BID No Start Date 12/28/2017 Inactive clonazepam 0.5 mg tablet RxNorm: 239872 2 Tablet(s) PO QHS No Start Date 10/16/2014 Inactive amlodipine 5 mg tablet RxNorm: 906893 1 Tablet(s) PO daily No Start Date 08/22/2015 Inactive pravastatin 80 mg tablet RxNorm: 278654 1 Tablet(s) PO QPM No Start Date 10/10/2014 Inactive Lialda 1.2 gram tablet,delayed release RxNorm: 349726 3 Tablet(s) PO daily No Start Date 07/01/2016 Inactive Alavert 10 mg disintegrating tablet RxNorm: 316056 1 Tablet(s) PO daily as needed No [...] Result Date Cbc With Differential Ord2 WBC 5.92 K/ul [...] 31.7 pg 04/23/2018 Cbc With Differential Ord2 [place]% 10.1 % 04/23/2018 Cbc With Differential Ord2 [...] 1.17 K/ul 04/23/2018 Cbc With Differential Ord2 [place] ABS# 0.6 K/ul 04/23/2018 Cbc With Differential Ord2 Eos ABS# 0.1 K/ul 04/23/2018 Cbc With Differential Ord2 Baso ABS# 0.0 K/ul 04/23/2018 C-Reactive Protein Qnt Crqnt CRP 0.1 mg/dl [...] 31.9 pg 02/23/2018 Cbc With Differential Ord2 [place]% 8.8 % 02/23/2018 Cbc With Differential Ord2 [...] 1.24 K/ul 02/23/2018 Cbc With Differential Ord2 [place] ABS# 0.5 K/ul 02/23/2018 Cbc With Differential Ord2 Eos ABS# 0.1 K/ul 02/23/2018 Cbc With Differential Ord2 Baso ABS# 0.0 K/ul 02/23/2018 Comp Metabolic Xdv300 NA 136 mEq/L 02/23/2018 Comp Metabolic Shd086 K 4.0 mEq/L 02/23/2018 Comp Metabolic Jls819 CL 105 mEq/L 02/23/2018 Comp Metabolic Xjx716 CO2 20.0 mEq/L 02/23/2018 Comp Metabolic Ejk539 ANION GAP 15 02/23/2018 Comp Metabolic Mer971 GLUCOSE 129 mg/dL 02/23/2018 Comp Metabolic Xhs629 Creat 0.9 mg/dL 02/23/2018 Comp Metabolic Ged707 eGFR 66 ml/min/1.73m2 02/23/2018 Comp Metabolic Vav968 BUN 11 mg/dL 02/23/2018 Comp Metabolic Jjt236 B/C Ratio 12.2 Ratio 02/23/2018 Comp Metabolic Ttk772 CALCIUM 8.6 mg/dL 02/23/2018 Comp Metabolic Zfb918 ALK PHOS 43 U/L 02/23/2018 Comp Metabolic Yfy204 AST(SGOT) 33 U/L 02/23/2018 Comp Metabolic Yve104 ALT(SGPT) 24 U/L 02/23/2018 Comp Metabolic Jdr052 BILI T 0.5 mg/dL 02/23/2018 Comp Metabolic Bgs823 ALBUMIN 4.2 g/dL 02/23/2018 Comp Metabolic Msu399 TPRO 6.8 g/dL 02/23/2018 Comp Metabolic Ted259 GLOB 2.6 g/dL 02/23/2018 Comp Metabolic Twp674 A/G Ratio 1.6 Ratio 02/23/2018 Comp Metabolic Bwy786 Osmo 273 mOsmo 02/23/2018 Vitamin D 25 Oh Uoc1690 VITAMIN D, 25 HYDROXY 29.25 ng/mL Sed Rate Ord21 ESR 8 mm/hr 02/23/2018 Hepatic Lzb012 ALBUMIN 4.3 g/dL 01/05/2018 Hepatic Spl423 TPRO 6.7 g/dL 01/05/2018 Hepatic Inu994 GLOB 2.5 g/dL 01/05/2018 Hepatic Gqn174 A/G Ratio 1.7 Ratio 01/05/2018 Hepatic Xot252 ALK PHOS 53 U/L 01/05/2018 Hepatic Qnb729 ALT(SGPT) 31 U/L 01/05/2018 Hepatic Ara263 AST(SGOT) 44 U/L 01/05/2018 Hepatic Xea056 BILI T 0.4 mg/dL 01/05/2018 Hepatic Mrd909 BILI D 0.1 mg/dL 01/05/2018 Hepatic Kcs702 BILI I 0.3 mg/dL 01/05/2018 Comp Metabolic Edr603 NA 133 mEq/L 10/20/2017 Comp Metabolic Keo487 K 4.1 mEq/L 10/20/2017 Comp Metabolic Guh806 CL 103 mEq/L 10/20/2017 Comp Metabolic Xlu985 CO2 23.0 mEq/L 10/20/2017 Comp Metabolic Ype249 ANION GAP 11 10/20/2017 Comp Metabolic Zsj386 GLUCOSE 118 mg/dL 10/20/2017 Comp Metabolic Fsd452 Creat 0.9 mg/dL 10/20/2017 Comp Metabolic Nom127 eGFR 64 ml/min/1.73m2 10/20/2017 Comp Metabolic Hmh984 BUN 14 mg/dL 10/20/2017 Comp Metabolic Zor324 B/C Ratio 15.2 Ratio 10/20/2017 Comp Metabolic Vjl772 CALCIUM 8.8 mg/dL 10/20/2017 Comp Metabolic Pll757 ALK PHOS 43 U/L 10/20/2017 Comp Metabolic Yfq229 AST(SGOT) 31 U/L 10/20/2017 Comp Metabolic Lsr012 ALT(SGPT) 25 U/L 10/20/2017 Comp Metabolic Hid207 BILI T 0.4 mg/dL 10/20/2017 Comp Metabolic Evo888 ALBUMIN 4.1 g/dL 10/20/2017 Comp Metabolic Iql862 TPRO 6.6 g/dL 10/20/2017 Comp Metabolic Zmo134 GLOB 2.5 g/dL 10/20/2017 Comp Metabolic Sdq444 A/G Ratio 1.6 Ratio 10/20/2017 Comp Metabolic Fns194 Osmo 268 mOsmo 10/20/2017 Vitamin D 25 Oh Eex1734 VITAMIN D, 25 HYDROXY 42.65 ng/mL C-Reactive [...] 32.0 pg 10/20/2017 Cbc With Differential Ord2 [place]% 8.6 % 10/20/2017 Cbc With Differential Ord2 [...] 1.16 K/ul 10/20/2017 Cbc With Differential Ord2 [place] ABS# 0.5 K/ul 10/20/2017 Cbc With Differential [...] 32.2 pg 07/21/2017 Cbc With Differential Ord2 [place]% 9.7 % 07/21/2017 Cbc With Differential Ord2 [...] 1.20 K/ul 07/21/2017 Cbc With Differential Ord2 [place] ABS# 0.6 K/ul 07/21/2017 Cbc With Differential Ord2 Eos ABS# 0.0 K/ul 07/21/2017 Cbc With Differential Ord2 Baso ABS# 0.0 K/ul 07/21/2017 Sed Rate Ord21 ESR 14 mm/hr 07/21/2017 Comp Metabolic Cpr340 NA 135 mEq/L 07/21/2017 Comp Metabolic Uur894 K 4.5 mEq/L 07/21/2017 Comp Metabolic Lub557 CL 101 mEq/L 07/21/2017 Comp Metabolic Jib415 CO2 26.0 mEq/L 07/21/2017 Comp Metabolic Bsg509 ANION GAP 13 07/21/2017 Comp Metabolic Tdz306 GLUCOSE 97 mg/dL 07/21/2017 Comp Metabolic Ces254 Creat 0.9 mg/dL 07/21/2017 Comp Metabolic Qbn742 eGFR 66 ml/min/1.73m2 07/21/2017 Comp Metabolic Bnv348 BUN 13 mg/dL 07/21/2017 Comp Metabolic Deo702 B/C Ratio 14.4 Ratio 07/21/2017 Comp Metabolic Xla635 CALCIUM 9.2 mg/dL 07/21/2017 Comp Metabolic Uxp067 ALK PHOS 46 U/L 07/21/2017 Comp Metabolic Par253 AST(SGOT) 31 U/L 07/21/2017 Comp Metabolic Fbl219 ALT(SGPT) 19 U/L 07/21/2017 Comp Metabolic Ckv114 BILI T 0.5 mg/dL 07/21/2017 Comp Metabolic Rma528 ALBUMIN 4.5 g/dL 07/21/2017 Comp Metabolic Ape426 TPRO 7.2 g/dL 07/21/2017 Comp Metabolic Uos534 GLOB 2.7 g/dL 07/21/2017 Comp Metabolic Vym281 A/G Ratio 1.7 Ratio 07/21/2017 Comp Metabolic Nqo128 Osmo 270 mOsmo 07/21/2017 Vitamin D 25 Oh Alk5705 VITAMIN D, 25 HYDROXY 31.39 ng/mL C-Reactive [...] 31.9 pg 04/14/2017 Cbc With Differential Ord2 [place]% 9.1 % 04/14/2017 Cbc With Differential Ord2 [...] 1.47 K/ul 04/14/2017 Cbc With Differential Ord2 [place] ABS# 0.7 K/ul 04/14/2017 Cbc With Differential Ord2 Eos ABS# 0.0 K/ul 04/14/2017 Cbc With Differential Ord2 Baso ABS# 0.0 K/ul 04/14/2017 Comp Metabolic Ced219 NA 136 mEq/L 04/14/2017 Comp Metabolic Orl165 K 4.4 mEq/L 04/14/2017 Comp Metabolic Ypb788 CL 104 mEq/L 04/14/2017 Comp Metabolic Lfh204 CO2 21.0 mEq/L 04/14/2017 Comp Metabolic Orf751 ANION GAP 15 04/14/2017 Comp Metabolic Emn583 GLUCOSE 112 mg/dL 04/14/2017 Comp Metabolic Grh780 Creat 1.1 mg/dL 04/14/2017 Comp Metabolic Ivc773 eGFR 51 ml/min/1.73m2 04/14/2017 Comp Metabolic Ing548 BUN 16 mg/dL 04/14/2017 Comp Metabolic Gof864 B/C Ratio 14.3 Ratio 04/14/2017 Comp Metabolic Zbl566 CALCIUM 8.9 mg/dL 04/14/2017 Comp Metabolic Cdw188 ALK PHOS 39 U/L 04/14/2017 Comp Metabolic Qau297 AST(SGOT) 24 U/L 04/14/2017 Comp Metabolic Nwe516 ALT(SGPT) 18 U/L 04/14/2017 Comp Metabolic Agh422 BILI T 0.5 mg/dL 04/14/2017 Comp Metabolic Rih133 ALBUMIN 4.3 g/dL 04/14/2017 Comp Metabolic Wac923 TPRO 6.8 g/dL 04/14/2017 Comp Metabolic Aml020 GLOB 2.5 g/dL 04/14/2017 Comp Metabolic Lyi036 A/G Ratio 1.7 Ratio 04/14/2017 Comp Metabolic Bae433 Osmo 274 mOsmo 04/14/2017 Vitamin D 25 Oh Qbm8487 VITAMIN D, 25 HYDROXY 29.88 ng/mL Sed Rate Ord21 ESR 15 mm/hr 04/14/2017 C-Reactive Protein Qnt Crqnt CRP 0.1 mg/dl 04/14/2017 C-Reactive Protein Qnt Crqnt CRP 0.1 mg/dl 02/09/2017 Comp Metabolic Loz749 NA 135 mEq/L 02/09/2017 Comp Metabolic Huf911 K 4.4 mEq/L 02/09/2017 Comp Metabolic Dcp208 CL 102 mEq/L 02/09/2017 Comp Metabolic Vxe533 CO2 23.0 mEq/L 02/09/2017 Comp Metabolic Kdg715 ANION GAP 14 02/09/2017 Comp Metabolic Nfe370 GLUCOSE 98 mg/dL 02/09/2017 Comp Metabolic Iuo027 Creat 0.9 mg/dL 02/09/2017 Comp Metabolic Tia973 eGFR 65 ml/min/1.73m2 02/09/2017 Comp Metabolic Dbi838 BUN 18 mg/dL 02/09/2017 Comp Metabolic Fta303 B/C Ratio 19.8 Ratio 02/09/2017 Comp Metabolic Jkc915 CALCIUM 9.2 mg/dL 02/09/2017 Comp Metabolic Bfz855 ALK PHOS 42 U/L 02/09/2017 Comp Metabolic Rmh920 AST(SGOT) 24 U/L 02/09/2017 Comp Metabolic Qvt529 ALT(SGPT) 16 U/L 02/09/2017 Comp Metabolic Rhw187 BILI T 0.4 mg/dL 02/09/2017 Comp Metabolic Whe984 ALBUMIN 4.4 g/dL 02/09/2017 Comp Metabolic Tzq386 TPRO 7.0 g/dL 02/09/2017 Comp Metabolic Ihv345 GLOB 2.6 g/dL 02/09/2017 Comp Metabolic Qwq128 A/G Ratio 1.7 Ratio 02/09/2017 Comp Metabolic Ojd498 Osmo 272 mOsmo 02/09/2017 Cbc With Differential [...] 32.5 pg 02/09/2017 Cbc With Differential Ord2 [place]% 8.7 % 02/09/2017 Cbc With Differential Ord2 [...] 1.06 K/ul 02/09/2017 Cbc With Differential Ord2 [place] ABS# 0.6 K/ul 02/09/2017 Cbc With Differential Ord2 Eos ABS# 0.0 K/ul 02/09/2017 Cbc With Differential Ord2 Baso ABS# 0.0 K/ul 02/09/2017 Vitamin D 25 Oh Paw8916 VITAMIN D, 25 HYDROXY 36.00 ng/mL Sed Rate Ord21 ESR 16 mm/hr 02/09/2017 %Hba1C Nzi699 % HbA1c 94334-2 6.1 % 05/20/2016 %Hba1C Elv704 Gluc Ave 128 mg/dL 05/20/2016 Lipid Ord30 CHOL 212 mg/dL 05/20/2016 Lipid Ord30 HDL 52.0 mg/dl 05/20/2016 Lipid Ord30 TRIG 149 mg/dL 05/20/2016 Lipid Ord30 LDL 130 mg/dL 05/20/2016 Lipid Ord30 C/HDL 4.1 Ratio 05/20/2016 Comp Metabolic Odl689 NA 134 mEq/L 04/21/2016 Comp Metabolic Eqr708 K 5.0 mEq/L 04/21/2016 Comp Metabolic Azk285 CL 103 mEq/L 04/21/2016 Comp Metabolic Dhr435 CO2 24.0 mEq/L 04/21/2016 Comp Metabolic Swe230 ANION GAP 12 04/21/2016 Comp Metabolic Zxk513 GLUCOSE 122 mg/dL 04/21/2016 Comp Metabolic Vng439 Creat 1.1 mg/dL 04/21/2016 Comp Metabolic Zqc900 eGFR 52 ml/min/1.73m2 04/21/2016 Comp Metabolic Wml813 BUN 24 mg/dL 04/21/2016 Comp Metabolic Yye717 B/C Ratio 21.6 Ratio 04/21/2016 Comp Metabolic Lwt851 CALCIUM 9.7 mg/dL 04/21/2016 Comp Metabolic Rat377 ALK PHOS 51 U/L 04/21/2016 Comp Metabolic Wlr554 AST(SGOT) 23 U/L 04/21/2016 Comp Metabolic Vgt598 ALT(SGPT) 17 U/L 04/21/2016 Comp Metabolic Ycv293 BILI T 0.5 mg/dL 04/21/2016 Comp Metabolic Wlv418 ALBUMIN 4.4 g/dL 04/21/2016 Comp Metabolic Rqw520 TPRO 7.3 g/dL 04/21/2016 Comp Metabolic Ufp421 GLOB 2.9 g/dL 04/21/2016 Comp Metabolic Ixp123 A/G Ratio 1.5 Ratio 04/21/2016 Comp Metabolic Zny745 Osmo 274 mOsmo 04/21/2016 Cbc With Differential [...] 32.0 pg 04/21/2016 Cbc With Differential Ord2 [place]% 9.1 % 04/21/2016 Cbc With Differential Ord2 [...] 1.39 K/ul 04/21/2016 Cbc With Differential Ord2 [place] ABS# 0.6 K/ul 04/21/2016 Cbc With Differential Ord2 Eos ABS# 0.1 K/ul 04/21/2016 Cbc With Differential Ord2 Baso ABS# 0.0 K/ul 04/21/2016 Bili D Ord93 BILI D 0.1 mg/dL 04/21/2016 Bili D Ord93 BILI I 0.4 mg/dL 04/21/2016 Vitamin D 25 Oh [id number] VITAMIN D, 25 HYDROXY 51.65 ng/mL Sed Rate Ord21 ESR 26 mm/hr 04/21/2016 C-Reactive Protein Qnt Crqnt CRP 0.1 mg/dl 04/21/2016 Comp Metabolic Ult617 NA 133 mEq/L 03/18/2016 Comp Metabolic Cye833 K 4.9 mEq/L 03/18/2016 Comp Metabolic Paz462 CL 102 mEq/L 03/18/2016 Comp Metabolic Rrp998 CO2 25.0 mEq/L 03/18/2016 Comp Metabolic Prt949 ANION GAP 11 03/18/2016 Comp Metabolic Fis611 GLUCOSE 114 mg/dL 03/18/2016 Comp Metabolic Kfx438 Creat 1.1 mg/dL 03/18/2016 Comp Metabolic Knn925 eGFR 54 ml/min/1.73m2 03/18/2016 Comp Metabolic Cuk357 BUN 23 mg/dL 03/18/2016 Comp Metabolic Rsx533 B/C Ratio 21.3 Ratio 03/18/2016 Comp Metabolic Cuk426 CALCIUM 9.7 mg/dL 03/18/2016 Comp Metabolic Nzo314 ALK PHOS 54 U/L 03/18/2016 Comp Metabolic Hij286 AST(SGOT) 21 U/L 03/18/2016 Comp Metabolic Erx714 ALT(SGPT) 15 U/L 03/18/2016 Comp Metabolic Qpz254 BILI T 0.4 mg/dL 03/18/2016 Comp Metabolic Isd631 ALBUMIN 4.4 g/dL 03/18/2016 Comp Metabolic Off283 TPRO 7.4 g/dL 03/18/2016 Comp Metabolic Tay829 GLOB 3.0 g/dL 03/18/2016 Comp Metabolic Kyh529 A/G Ratio 1.5 Ratio 03/18/2016 Comp Metabolic Jjp990 Osmo 271 mOsmo 03/18/2016 Vitamin D 25 Oh Ita5615 VITAMIN D, 25 HYDROXY 46.10 ng/mL Sed Rate Ord21 ESR 26 mm/hr 02/13/2016 Comp Metabolic Mpq075 NA 133 mEq/L 02/13/2016 Comp Metabolic Dce429 K 4.8 mEq/L 02/13/2016 Comp Metabolic Hbb831 CL 104 mEq/L 02/13/2016 Comp Metabolic Urt089 CO2 23.0 mEq/L 02/13/2016 Comp Metabolic Blq993 ANION GAP 11 02/13/2016 Comp Metabolic Tvt210 GLUCOSE 104 mg/dL 02/13/2016 Comp Metabolic Juq281 Creat 1.0 mg/dL 02/13/2016 Comp Metabolic Osj905 eGFR 56 ml/min/1.73m2 02/13/2016 Comp Metabolic Nrd480 BUN 25 mg/dL 02/13/2016 Comp Metabolic Alv602 B/C Ratio 24.0 Ratio 02/13/2016 Comp Metabolic Ynb883 CALCIUM 9.1 mg/dL 02/13/2016 Comp Metabolic Uxm843 ALK PHOS 43 U/L 02/13/2016 Comp Metabolic Dol072 AST(SGOT) 21 U/L 02/13/2016 Comp Metabolic Guj815 ALT(SGPT) 17 U/L 02/13/2016 Comp Metabolic Cvz144 BILI T 0.4 mg/dL 02/13/2016 Comp Metabolic Msq538 ALBUMIN 4.3 g/dL 02/13/2016 Comp Metabolic Rbg407 TPRO 7.1 g/dL 02/13/2016 Comp Metabolic Acn859 GLOB 2.9 g/dL 02/13/2016 Comp Metabolic Cld144 A/G Ratio 1.5 Ratio 02/13/2016 Comp Metabolic Qmg636 Osmo 271 mOsmo 02/13/2016 C-Reactive Protein Qnt [...] 31.6 pg 02/13/2016 Cbc With Differential Ord2 [place]% 9.7 % 02/13/2016 Cbc With Differential Ord2 [...] 1.17 K/ul 02/13/2016 Cbc With Differential Ord2 [place] ABS# 0.6 K/ul 02/13/2016 Cbc With Differential Ord2 Eos ABS# 0.1 K/ul 02/13/2016 Cbc With Differential Ord2 Baso ABS# 0.0 K/ul 02/13/2016 Comp Metabolic Vcz210 NA 132 mEq/L 10/08/2015 Comp Metabolic Kus912 K 4.7 mEq/L 10/08/2015 Comp Metabolic Tgi024 CL 101 mEq/L 10/08/2015 Comp Metabolic Rfc202 CO2 24.0 mEq/L 10/08/2015 Comp Metabolic Htg986 ANION GAP 12 10/08/2015 Comp Metabolic Lpq405 GLUCOSE 85 mg/dL 10/08/2015 Comp Metabolic Ebq934 Creat 0.9 mg/dL 10/08/2015 Comp Metabolic Ipy627 eGFR 66 ml/min/1.73m2 10/08/2015 Comp Metabolic Gxa680 BUN 29 mg/dL 10/08/2015 Comp Metabolic Nwv591 B/C Ratio 32.2 Ratio 10/08/2015 Comp Metabolic Yxa691 CALCIUM 9.1 mg/dL 10/08/2015 Comp Metabolic Kmu310 ALK PHOS 40 U/L 10/08/2015 Comp Metabolic Yzk807 AST(SGOT) 18 U/L 10/08/2015 Comp Metabolic Vpv734 ALT(SGPT) 14 U/L 10/08/2015 Comp Metabolic Juk568 BILI T 0.3 mg/dL 10/08/2015 Comp Metabolic Aqn105 ALBUMIN 4.1 g/dL 10/08/2015 Comp Metabolic Jyt502 TPRO 6.8 g/dL 10/08/2015 Comp Metabolic Wyq665 GLOB 2.7 g/dL 10/08/2015 Comp Metabolic Hds229 A/G Ratio 1.5 Ratio 10/08/2015 Comp Metabolic Ivf439 Osmo 270 mOsmo 10/08/2015 C-Reactive Protein Qnt [...] 96.0 fl 10/08/2015 Cbc With Differential Ord2 [place]% 10.5 % 10/08/2015 Cbc With Differential Ord2 [...] 1.24 K/ul 10/08/2015 Cbc With Differential Ord2 [place] ABS# 0.8 K/ul 10/08/2015 Cbc With Differential Ord2 Eos ABS# 0.0 K/ul 10/08/2015 Cbc With Differential Ord2 Baso ABS# 0.0 K/ul 10/08/2015 Sed Rate Ord21 ESR 20 mm/hr 10/08/2015 Vitamin D 25 Oh Lji6457 VITAMIN D, 25 HYDROXY 54.28 ng/mL Tsh Ord6 hTSH II 1.72 uIU/mL 09/26/2015 Free T4 Cpx740 FREE T4 0.80 ng/dL 09/26/2015 Comp Metabolic Zsr585 NA 133 mEq/L 08/06/2015 Comp Metabolic Lyu604 K 4.6 mEq/L 08/06/2015 Comp Metabolic Cmp895 CL 102 mEq/L 08/06/2015 Comp Metabolic Iku424 CO2 24.0 mEq/L 08/06/2015 Comp Metabolic Yuo564 ANION GAP 12 08/06/2015 Comp Metabolic Hxi221 GLUCOSE 105 mg/dL 08/06/2015 Comp Metabolic Qhb397 Creat 1.0 mg/dL 08/06/2015 Comp Metabolic Ejx373 eGFR 60 ml/min/1.73m2 08/06/2015 Comp Metabolic Fjj417 BUN 28 mg/dL 08/06/2015 Comp Metabolic Evr275 B/C Ratio 28.6 Ratio 08/06/2015 Comp Metabolic Krl647 CALCIUM 9.2 mg/dL 08/06/2015 Comp Metabolic Iyn117 ALK PHOS 42 U/L 08/06/2015 Comp Metabolic Nce533 AST(SGOT) 20 U/L 08/06/2015 Comp Metabolic Hne156 ALT(SGPT) 16 U/L 08/06/2015 Comp Metabolic Avp523 BILI T 0.3 mg/dL 08/06/2015 Comp Metabolic Qep464 ALBUMIN 4.3 g/dL 08/06/2015 Comp Metabolic Ceb867 TPRO 6.9 g/dL 08/06/2015 Comp Metabolic Ahx519 GLOB 2.7 g/dL 08/06/2015 Comp Metabolic Fnt516 A/G Ratio 1.6 Ratio 08/06/2015 Comp Metabolic Hvn268 Osmo 272 mOsmo 08/06/2015 C-Reactive Protein Qnt Crqnt CRP 0.00 mg/dl 08/06/2015 Vitamin D 25 Oh Rrg9464 VITAMIN D, 25 HYDROXY 36.25 ng/mL Cbc [...] 20.4 % 08/06/2015 Cbc With Differential Ord2 [place]% 8.9 % 08/06/2015 Cbc With Differential Ord2 [...] 1.31 K/ul 08/06/2015 Cbc With Differential Ord2 [place] ABS# 0.6 K/ul 08/06/2015 Cbc With Differential [...] Ord93 BILI I 0.4 mg/dL 04/04/2015 %Hba1C Nip728 % HbA1c 91903-1 5.7 % 04/04/2015 %Hba1C Nfs202 Gluc Ave 117 mg/dL 04/04/2015 Vitamin D 25 Oh Mdg8474 VITAMIN D, 25 HYDROXY 47.62 ng/mL C-Reactive [...] Ord2 RDW 13.0 % 04/04/2015 Comp Metabolic Blg331 NA 132 mEq/L 04/04/2015 Comp Metabolic Ptz099 K 4.6 mEq/L 04/04/2015 Comp Metabolic Yfu028 CL 100 mEq/L 04/04/2015 Comp Metabolic Jiv576 CO2 22.0 mEq/L 04/04/2015 Comp Metabolic Osq345 ANION GAP 15 04/04/2015 Comp Metabolic Tze358 GLUCOSE 118 mg/dL 04/04/2015 Comp Metabolic Yjn788 Creat 1.0 mg/dL 04/04/2015 Comp Metabolic Mvz546 eGFR 60 ml/min/1.73m2 04/04/2015 Comp Metabolic Qpi682 BUN 18 mg/dL 04/04/2015 Comp Metabolic Cpq164 B/C Ratio 18.4 Ratio 04/04/2015 Comp Metabolic Ato479 CALCIUM 9.6 mg/dL 04/04/2015 Comp Metabolic Lue306 ALK PHOS 63 U/L 04/04/2015 Comp Metabolic Axc657 AST(SGOT) 17 U/L 04/04/2015 Comp Metabolic Pjf770 ALT(SGPT) 13 U/L 04/04/2015 Comp Metabolic Vie742 BILI T 0.5 mg/dL 04/04/2015 Comp Metabolic Mlw751 ALBUMIN 4.6 g/dL 04/04/2015 Comp Metabolic Sxu816 TPRO 7.4 g/dL 04/04/2015 Comp Metabolic Nki373 GLOB 2.8 g/dL 04/04/2015 Comp Metabolic Qqz268 A/G Ratio 1.6 Ratio 04/04/2015 Comp Metabolic Mgj272 Osmo 268 mOsmo 04/04/2015 Sed Rate Ord21 ESR 16 mm/hr 04/04/2015 Lipid Ord30 CHOL 214 mg/dL 04/04/2015 Lipid Ord30 HDL 61.0 mg/dl 04/04/2015 Lipid Ord30 TRIG 155 mg/dL 04/04/2015 Lipid Ord30 LDL 122 mg/dL 04/04/2015 Lipid Ord30 C/HDL 3.5 Ratio 04/04/2015 %Hba1C Ton319 % HbA1c 75091-1 5.9 % 11/28/2014 %Hba1C Bdg755 Gluc Ave 123 mg/dL 11/28/2014 Cbc With [...] Rate Ord21 ESR 19 mm/hr 11/27/2014 Hepatic Kzi749 ALBUMIN 4.4 g/dL 11/27/2014 Hepatic Bru340 TPRO 7.0 g/dL 11/27/2014 Hepatic Spf162 GLOB 2.6 g/dL 11/27/2014 Hepatic Ufo481 A/G Ratio 1.7 Ratio 11/27/2014 Hepatic Xvf822 ALK PHOS 63 U/L 11/27/2014 Hepatic Wzq504 ALT(SGPT) 14 U/L 11/27/2014 Hepatic Uok950 AST(SGOT) 19 U/L 11/27/2014 Hepatic Jvt214 BILI T 0.4 mg/dL 11/27/2014 Hepatic Jrw284 BILI D 0.1 mg/dL 11/27/2014 Hepatic Cub419 BILI I 0.3 mg/dL 11/27/2014 Lipid Ord30 [...] normal 02/17/2017 None Full Exam - General 1995 Ears/Nose/Throat lips/teeth/gingiva Overall: benign lips 02/17/2017 None [...] Formatting Model/CDA Sections, Assigned to/Tabitha Velasquez CPT-4: 66167Rvakkmd 12/29/2017 PPPS, SUBSEQ VISIT CPT -4: G0439 09/17/2017 PPPS, SUBSEQ VISIT CPT -4: G0439 08/21/2016 PNEUMOCOCCAL VACC [address]: 93899412 CPT-4: 21504 02/20/2016 ADMIN PNEUMOCOCCAL VACCINE SNOMED CT: 85494923 CPT-4: G0009 02/20/2016 ADMIN INFLUENZA VIRUS VAC CPT-4: G0008 01/23/2016 FLU VACC 4 KATIE 3 YRS PLUS IM SNOMED CT: 83072811 CPT-4: 35508 01/23/2016 PPPS, SUBSEQ VISIT CPT -4: G0439 07/19/2015 Vital Signs Date Vital 01/12/2018 Blood Pressure 1: 124/70 Code : 8480-6 BMI: 30.2 Code : 67714-9 Heart Rate 1 : 59 bpm Height: 5'1" SpO2: 98% Weight: 160 lbs 12/29/2017 Blood Pressure 1: 148/82 Code : 8480-6 BMI: 30.4 Code : 62154-3 Heart Rate 1 : 60 bpm Height: 5'1" SpO2: 99% Weight: 161 lbs 09/17/2017 Height: Weight: 08/25/2017 Blood Pressure 1: 130/72 Code : 8480-6 BMI: 29.9 Code : 57934-0 Heart Rate 1 : 70 bpm Height: 5'1" SpO2: 93% Weight: 158 lbs 07/21/2017 Blood Pressure 1: 150/84 Code : 8480-6 BMI: 29.5 Code : 39392-0 Heart Rate 1 : 62 bpm Height: 5'1" SpO2: 98% Weight: 156 lbs 06/17/2017 Blood Pressure 1: 148/86 Code : 8480-6 BMI: 29.5 Code : 56733-5 Heart Rate 1 : 64 bpm Height: 5'1" SpO2: 98% Weight: 156 lbs 02/17/2017 Blood Pressure 1: 144/86 Code : 8480-6 BMI: 28.7 Code : 94652-8 Heart Rate 1 : 64 bpm Height: 5'1" SpO2: 96% Weight: 152 lbs 01/02/2017 Blood Pressure 1: 132/78 Code : 8480-6 BMI: 28.3 Code : 43446-1 Heart Rate 1 : 71 bpm Height: 5'1" SpO2: 97% Weight: 150 lbs 12/05/2016 Blood Pressure 1: 140/76 Code : 8480-6 BMI: 29.5 Code : 49368-2 Heart Rate 1 : 66 bpm Height: 5'1" SpO2: 98% Weight: 156 lbs 08/21/2016 Blood Pressure 1: 14278 Code : 8480-6 BMI: 29.9 Code : 92952-8 Heart Rate 1 : 62 bpm Height: 5'1" SpO2: 98% Waist Measure (cm): 79 cm Weight: 158 lbs 08/19/2016 Blood Pressure 1: 14278 Code : 8480-6 BMI: 29.9 Code : 52697-8 Heart Rate 1 : 62 bpm Height: 5'1" SpO2: 98% Weight: 158 lbs 05/20/2016 Blood Pressure 1: 152/76 Code : 8480-6 Blood Pressure 1: 144/80 Code: 8480-6 BMI: 29.3 Code: 74592-4 Heart Rate 1: 60 bpm Height: 5'1" SpO2: 95% Weight: 155 lbs 01/23/2016 Blood Pressure 1: 138/78 Code : 8480-6 BMI: 29.7 Code : 55344-4 Heart Rate 1 : 64 bpm Height: 5'1" SpO2: 98% Weight: 157 lbs 09/26/2015 Blood Pressure 1: 136/76 Code : 8480-6 BMI: 28.3 Code : 15021-4 Heart Rate 1 : 70 bpm Height: 5'1" SpO2: 98% Weight: 150 lbs 08/23/2015 Blood Pressure 1: 126/78 Code : 8480-6 BMI: 27.8 Code : 14625-0 Heart Rate 1 : 68 bpm Height: 5'1" SpO2: 97% Weight: 147 lbs 07/19/2015 Blood Pressure 1: 146/70 Code : 8480-6 BMI: 26.8 Code : 49925-9 Heart Rate 1 : 58 bpm Height: 5'1" SpO2: 96% Waist Measure (cm): 84 cm Weight: 142 lbs 04/17/2015 Blood Pressure 1: 132/62 Code : 8480-6 BMI: 25.3 Code : 25634-9 Heart Rate 1 : 98 bpm Height: 5'1" SpO2: 97% Weight: 134 lbs 03/15/2015 Blood Pressure 1: 158/72 Code : 8480-6 Blood Pressure 1: 160/70 Code: 8480-6 BMI: 25.5 Code: 30576-3 Heart Rate 1: 74 bpm Heart Rate 1: 72 bpm Height: 5'1" Height: SpO2: 98% Weight: 135 lbs Weight: 02/06/2015 Blood Pressure 1: 142/82 Code : 8480-6 BMI: 25.5 Code : 92283-3 Heart Rate 1 : 82 bpm Height: 5'1" SpO2: 96% Weight: 135 lbs 12/13/2014 Blood Pressure 1: 136/64 Code : 8480-6 BMI: 24.9 Code : 92110-9 Heart Rate 1 : 86 bpm Height: 5'1" SpO2: 95% Weight: 132 lbs 10/11/2014 Blood Pressure 1: 140/80 Code : 8480-6 BMI: 25.1 Code : 06972-0 Heart Rate 1 : 72 bpm Height: [...] Present Encounters Encounter Performer Location Codes Date EST. PATIENT, LEVEL III Diagnosis: Essential (primary) hypertension[ICD10: I10] Diagnosis: Type 2 diabetes mellitus without complications[ICD10: E11.9] Diagnosis: Encounter for immunization[ICD10: Z23] Diagnosis: Muscle weakness (generalized)[ICD10: M62.81] Maria Luisa Echeverria MD, [facility] CPT-4: 72140 01/12/2018 [id number]) 77000 EST. PATIENT, LEVEL IV Diagnosis: Essential (primary) hypertension[ICD10: I10] Diagnosis: Type 2 diabetes mellitus without complications[ICD10: E11.9] Diagnosis: Encounter for immunization[ICD10: Z23] Diagnosis: Muscle weakness (generalized)[ICD10: M62.81] Maria Luisa Echeverria MD, [facility] CPT-4: 09548 12/29/2017 [id number]) 06723 EST. PATIENT, LEVEL IV Diagnosis: Essential (primary) hypertension[ICD10: I10] Diagnosis: Muscle weakness (generalized)[ICD10: M62.81] Diagnosis: 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 artery[ICD10: I66.01 ] Maria Luisa Echeverria MD, [facility] CPT-4: 91748 08/25/2017 [id number]) 04711 EST. PATIENT, LEVEL IV Diagnosis: Essential (primary) hypertension[ICD10: I10] Diagnosis: 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 artery[ICD10: I66.01 ] Maria Luisa Echeverria MD, [facility] CPT-4: 97435 07/21/2017 [id number]) 75921 EST. PATIENT, LEVEL IV Diagnosis: Essential (primary) hypertension[ICD10: I10] Diagnosis: Type 2 diabetes mellitus without complications[ICD10: E11.9] Diagnosis: 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 artery[ICD10: I66.01 ] Maria Luisa Echeverria MD, [facility] CPT-4: 42632 06/17/2017 ([id number]) 75231 EST. PATIENT, LEVEL IV Diagnosis: Essential (primary) hypertension[ICD10: I10] Diagnosis: Muscle weakness (generalized)[ICD10: M62.81] Diagnosis: Mixed hyperlipidemia[ICD10: E78.2] [facility] CPT-4: 72178 02/17/2017 [id number]) 82328 EST. PATIENT, LEVEL III Diagnosis: Essential (primary) hypertension[ICD10: I10] Diagnosis: Muscle weakness (generalized)[ICD10: M62.81] Diamond Echeverria MD, [facility] CPT-4: 41353 01/02/2017 ([id number]) 69655 EST. PATIENT, LEVEL IV Diagnosis: Muscle weakness (generalized)[ICD10: M62.81] Diagnosis: Cerebral infarction, unspecified[ICD10: I63.9] Diagnosis: Essential (primary) hypertension[ICD10: I10] Diagnosis: Gastro-esophageal reflux disease without esophagitis[ICD10: K21.9] Diagnosis: Allergic rhinitis due to pollen[ICD10: J30.1] Diamond Echeverria MD, [facility] CPT-4: 41028 12/05/2016 ([id number]) 57004 EST. PATIENT, LEVEL IV Diagnosis: Essential (primary) hypertension[ICD10: I10] Diagnosis: Type 2 diabetes mellitus without complications[ICD10: E11.9] [facility] CPT-4: 50855 08/19/2016 25953 EST. PATIENT, LEVEL IV Diagnosis: Essential (primary) hypertension[ICD10: I10] Diagnosis: Type 2 diabetes mellitus without complications[ICD10: E11.9] Diagnosis: Mixed hyperlipidemia[ICD10: E78.2] [facility] CPT-4: 54464 05/20/2016 ([id number]) 59859 EST. PATIENT, LEVEL IV Diagnosis: Type 2 diabetes mellitus without complications[ICD10: E11.9] Diagnosis: Family history of other endocrine, nutritional and metabolic diseases [ICD10: Z83.49] Diagnosis: Other fatigue[ICD10: R53.83] Diagnosis: Abnormal weight gain[ICD10: R63.5] Diagnosis: Actinic keratosis[ICD10: L57.0] Maria Luisa Echeverria MD, [facility] CPT- 4: 29750 01/23/2016 [id number]) 04935 EST. PATIENT, LEVEL IV Diagnosis: Family history of other endocrine, nutritional and metabolic diseases [ICD10: Z83.49] Diagnosis: Other fatigue[ICD10: R53.83] Diagnosis: Abnormal weight gain[ICD10: R63.5] Diagnosis: Actinic keratosis[ICD10: L57.0] Diagnosis: Type 2 diabetes mellitus without complications[ICD10: E11.9] Maria Luisa Echeverria MD, [facility] CPT-4: 84617 09/26/2015 [id number]) 66434 EST. PATIENT, LEVEL IV Diagnosis: Essential (primary) hypertension[ICD10: I10] Diagnosis: Type 2 diabetes mellitus without complications[ICD10: E11.9] Diagnosis: Other depressive episodes[ICD10: F32.8] Diagnosis: Vitamin D deficiency, unspecified[ICD10: E55.9] Maria Luisa Echeverria MD, [facility] CPT-4: 27961 08/23/2015 [id number]) 47620 EST. PATIENT, LEVEL IV Diagnosis: Essential (primary) hypertension[ICD10: I10] Diagnosis: Benign paroxysmal vertigo, unspecified ear[ICD10: H81.10] Diagnosis: Type 2 diabetes mellitus without complications[ICD10: E11.9] Maria Luisa Echeverria MD, [facility] CPT-4: 31979 04/17/2015 [id number]) 71513 EST. PATIENT, LEVEL III Diagnosis: Essential (primary) hypertension[ICD10: I10] Diagnosis: Benign paroxysmal vertigo, unspecified ear[ICD10: H81.10] Diamond Echeverria MD , [facility] CPT-4: 61065 03/15/2015 10395 17947 EST. PATIENT, LEVEL III Diagnosis: Essential (primary) hypertension[ICD10: I10] Diagnosis: Edema, unspecified[ICD10: R60.9] Diamond Silverio Echeverria MD, [facility] CPT-4: 55816 02/06/2015 ([id number]) 55465 EST. PATIENT, LEVEL IV Diagnosis: ESSENTIAL HYPERTENSION[ICD9: 401.9] Diagnosis: HYPERLIPIDEMIA[ICD9: 272.4] Diagnosis: DEPRESSIVE DISORDER NEC[ICD9: 311] Diagnosis: ESOPHAGEAL REFLUX[ICD9: 530.81] Diagnosis: RESTLESS LEGS SYNDROME[ICD9: 333.94] Maria Luisa Echeverria MD, [facility] CPT-4: 25716 12/13/2014 ([id number]) OFFICE VISIT, NEW - LEVEL 4 Diagnosis: ESSENTIAL HYPERTENSION[ICD9: 401.9] Diagnosis: HYPERLIPIDEMIA[ICD9: 272.4] Diagnosis: DEPRESSIVE DISORDER NEC[ICD9: 311] Diagnosis: ESOPHAGEAL REFLUX[ICD9: 530.81] Diagnosis: RESTLESS LEGS SYNDROME[ICD9: 333.94] Maria Luisa Echeverria MD, [facility] CPT-4: 09851 10/11/2014 Plan of Care Planned Activity Notes Codes Status Date Visit Plan: Hypertension - improved control - continue with current medications, continue with no added salt diet. Pt has been encouraged to exercise daily. The pt has been advised to call the office if there are any acute concerns about change in blood pressure readings at home. 01/12/2018 Appointment: Maria Luisa Echeverria WPtel: [address] [place], [place] [id number] (15 min) Moderate 01/12/2018 Patient Education: Patient [...] she stopped therapy when she left the assisted. She states that she does struggle with her strength. She states that she would rather do activities on her own rather than going to physical therapy. high dose flu shot today due to autoimmune deficiency 12/29/2017 Appointment: Maria Luisa Echeverria WPtel: [phone] [facility] (15 min) Moderate 12/29/2017 Patient Education: Patient [...] she stopped therapy when she left the assisted. She states that she does struggle with her strength. She states that she would rather do activities on her own rather than going to physical therapy. 08/25/2017 [facility]ment[phone] ([facility] min) Moderate 08/25/2017 Patient Education: [...] therapy. 07/21/2017 Appointment: Maria Luisa Echeverria WPtel: [facility] (15 min) Moderate 07/21/2017 Patient Education: Patient Medication Summary Completed 07/21/2017 Visit Plan: Right Middle Cerebral artery stroke - appt with neurology with Dr. Macario at Neurology. Gait instability - appt with out physical therapy Hypertension - stable - continue with current treatment - monitor symptoms DM - diet controlled - 06/17/2017 Appointment: Maria Luisa Echeverria [facility]Ptel[facility] ([facility] min) Moderate 06/17/2017 Patient Education: [...] medications. 02/17/2017 Appointment: Maria Luisa Echeverria WPtel: [facility] (15 min) Moderate 02/17/2017 Patient Education: Patient Medication Summary Completed 02/17/2017 Care Plan: Referral Order SNOMED-CT : [id number] Pending 02/17/2017 Visit Plan: Hypertension - well controlled - continue with current medications, continue with no added salt diet. Pt has been encouraged to exercise daily. The pt has been advised to call the office if there are any acute concerns about change in blood pressure readings at home. Weakness-recent stroke-strength improving-no changes 01/02/2017 Appointment: Diamond Sawyer WPtel: [phone] (30 min) Complex 01/02/2017 Patient Education: Patient Medication Summary Completed 01/02/2017 Visit Plan: Hypertension - well controlled - continue with current medications, continue with no added salt diet. Pt has been encouraged to exercise daily. The pt has been advised to call the office if there are any acute concerns about change in blood pressure readings at home. Generalized weakness-gait inxwalvwfto-OFI-uyqntces PT-patient to use 4 wheeled walker GERD- dysphagia-refer for speech eval-start pepcid twice daily Allergies-chronic- restart allergy pill as directed 12/05/2016 Appointment: Diamond Sawyer WPtel: [phone] (15 min) Moderate 12/05/2016 Patient Education: [...] paperwork for health care surrogate. 08/21/2016 Appointment: Je Ashley WPtel: [phone] [facility] [facility] - Annual Wellness Visit 08/21/2016 Patient [...] 08/19/2016 Appointment: [facility] Lu[phone] (15 min) Moderate 08/19/2016 Patient Education: Patient [...] medications. 05/20/2016 Appointment: Ashley Wooten WPtel: [phone] [facility] (15 min) Moderate 05/20/2016 Patient Education: [...] TODAY 01/23/2016 Appointment: [phone] ([facility] min) Moderate 01/23/2016 Patient Education: Patient [...] 09/26/2015 Appointment: [phone] (15 min) Moderate 09/26/2015 Patient Education: [...] 08/23/2015 Appointment: [phone] (15 min) Moderate 08/22/2015 Appointment: [phone] (15 min) Moderate 08/15/2015 Visit Plan: Medicare [...] paperwork for health care surrogate. 07/19/2015 Appointment: [facility] - Annual Wellness Visit 07/19/2015 Patient [...] week. 04/17/2015 Appointment: Maria Luisa Echeverria WPtel[facility] (15 min) Moderate 04/17/2015 Patient Education: [...] medications. 12/13/2014 Appointment: Maria Luisa Echeverria WPtel[facility] ([facility] min) Moderate 12/13/2014 Patient Education: [...] 10/11/2014 Appointment: [phone] [facility] [place] New Patient 10/11/2014 Appointment: [facility] Lu[phone] (15 min) Moderate 10/11/2014 Patient Education: [...] her DOP[employer] paperwork for health care surrogate. stop AMLODIPINE - due to swelling in [...] blood pressure readings at home. Generalized weakness-gait gzjkdjgsfbb-PSM-uvjlnsis PT-patient to use 4 wheeled walker CVHA-nzvnozfbr-ckuug for speech eval-start pepcid twice daily Anfzngtml-vnlikzt-kirtkjn allergy pill as directed . Hypertension - [...] to become less controlled. . Hypertension - uncontrolled - the patient's [...] it to be rescheduled. We will call [facility] again about scheduling her for an appt [...] she stopped therapy when she left the assisted. She states that she does struggle with [...] at Neurology. Gait instability - appt with [facility] physical therapy Hypertension - stable - continue with current treatment - monitor symptoms DM - diet controlled - . Medicare Exam - today we discussed [...] she stopped therapy when she left the assisted. She states that she does struggle with [...]
[2018-07-02 14:44] LABS: BILIRUBIN,URINE NEGATIVE (NEGATIVE); CLARITY,URINE CLEAR; COLOR,URINE YELLOW; GLUCOSE, URINE (UA) NEGATIVE (NEGATIVE); KETONES,URINE NEGATIVE (NEGATIVE); LEUKOCYTE ESTERASE ,URINE NEGATIVE (NEGATIVE); NITRITE,URINE NEGATIVE (NEGATIVE); PH,URINE 6 (5-9); PROTEIN,URINE NEGATIVE (NEGATIVE); UROBILINOGEN,URINE NORMAL (NORMAL)
--- OUTSIDE RECORDS SUMMARY | 2018-07-02 14:46 | XMS REPORT | CCD ---
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 Name Role Phone PP Unavailable CCM Unavailable Summary Purpose Interface Exchange Insurance Providers Payer name Policy type / Coverage type Covered republican ID Effective Begin Date Effective End Date WPS Medicare Part B Medicare Part B [id number] 2017 Unknown [facility] Medicare Part B [id number] Unknown Family history Mother Diagnosis Age At [...] Unknown 5 10/11/[address]: 408906375 Never smoker 10/11/[address]: 821078015 Never drinks alcohol 10/11/2014 Allergies, Adverse Reactions, [...] Fill Instructions Plavix 75 mg tablet RxNorm: 172681 Tablet(s) TAKE ONE TABLET BY MOUTH DAILY 04/19/2018 04/13/2019 Active Coreg 3.125 mg tablet RxNorm: 446027 TAKE ONE-HALF TABLET BY MOUTH TWICE A DAY 04/19/2018 09/15/2018 Active clonazepam 0.5 mg tablet RxNorm: 334714 Tablet(s) TAKE 2 TABLETS BY MOUTH AT BEDTIME NEEDED 04/19/2018 07/17/2018 Active Voice2InsightTouch Ultra Test strips RxNorm: TEST 1 TIME DAILY 201804/08/2019 Active Benicar 40 mg tablet RxNorm: 114405 1 Tablet(s) PO daily 201707/23/2018 Active This replaces losartan Benicar 40 mg tablet RxNorm: 041586 1 Tablet(s) PO daily 201702/23/2018 Inactive This replaces losartan clonazepam 0.5 mg tablet RxNorm: 763353 Tablet(s) TAKE 2 TABLETS BY MOUTH AT BEDTIME NEEDED 01/20/2018 04/18/2018 Inactive Coreg 3.125 mg tablet RxNorm: 006262 1/2 Tablet(s) PO BID 201704/18/2018 Inactive Mirapex 0.5 mg tablet RxNorm: 710378 TAKE ONE TABLET BY MOUTH EVERY NIGHT AT BEDTIME 12/21/2017 05/19/2018 Active folic acid 1 mg tablet RxNorm: 629431 TAKE ONE TABLET BY MOUTH DAILY 12/11/2017 12/05/2018 Active Plavix 75 mg tablet RxNorm: 112085 TAKE ONE TABLET BY MOUTH DAILY 12/11/2017 04/18/2018 Inactive Aspirin Low Dose 81 mg tablet,delayed release RxNorm: 696710 TAKE ONE TABLET BY MOUTH DAILY 11/24/2017 12/28/2017 Inactive Request already responded to by other means (e.g. phone or fax) Aspirin Low Dose 81 mg tablet,delayed release RxNorm: 192800 1 Tablet(s) PO daily 11/18/2017 11/17/2017 Inactive Aspirin Low Dose 81 mg tablet,delayed release RxNorm: 459738 1 Tablet(s) PO daily 11/18/2017 11/23/2017 Inactive clonazepam 0.5 mg tablet RxNorm: 269280 Tablet(s) TAKE 2 TABLETS BY MOUTH AT BEDTIME NEEDED 10/23/2017 04/18/2018 Inactive Lomotil 2.5 mg-0.025 mg tablet RxNorm: 3533445 1 Tablet(s) PO daily as needed 09/28/2017 03/26/2018 Inactive pravastatin 80 mg tablet RxNorm: 768337 TAKE ONE TABLET BY MOUTH EVERY EVENING 08/19/2017 11/11/2018 Active clonazepam 0.5 mg tablet RxNorm: 442529 Tablet(s) TAKE 2 TABLETS BY MOUTH AT BEDTIME NEEDED 07/24/2017 10/20/2017 Inactive Mirapex 0.5 mg tablet RxNorm: 238532 TAKE ONE TABLET BY MOUTH EVERY NIGHT AT BEDTIME 07/23/2017 12/19/2017 Inactive Vitamin D2 50,000 unit capsule RxNorm: 471975 1 Capsule(s) PO QW 07/22/2017 07/21/2017 Inactive Vitamin D2 50,000 unit capsule RxNorm: 313772 1 Capsule(s) PO QW 07/22/2017 10/19/2017 Inactive amlodipine 5 mg tablet RxNorm: 473333 1 Tablet(s) PO daily 01/201812/28/2017 Inactive Refill not appropriate Prozac 40 mg capsule RxNorm: 079115 TAKE ONE CAPSULE BY MOUTH DAILY 06/24/2017 06/18/2018 Active Plavix 75 mg tablet RxNorm: 069424 TAKE ONE TABLET BY MOUTH DAILY 06/18/2017 12/10/2017 Inactive Lomotil 2.5 mg-0.025 mg tablet RxNorm: 7850120 1 Tablet(s) PO daily as needed 06/04/2017 11/17/2017 Inactive losartan 100 mg tablet RxNorm: 965836 TAKE ONE TABLET BY MOUTH DAILY 05/11/2017 02/23/2018 Inactive OneTouch Ultra Test strips RxNorm: TEST 1 TIME DAILY 201704/13/2018 Inactive clonazepam 0.5 mg tablet RxNorm: 541089 Tablet(s) TAKE 2 TABLETS BY MOUTH AT BEDTIME NEEDED 04/14/2017 11/17/2017 Inactive Lomotil 2.5 mg-0.025 mg tablet RxNorm: 2467677 1 Tablet(s) PO daily as needed 03/17/2017 06/03/2017 Inactive Mirapex 0.5 mg tablet RxNorm: 849730 TAKE ONE TABLET BY MOUTH EVERY NIGHT AT BEDTIME 01/19/2017 07/17/2017 Inactive clonazepam 0.5 mg tablet RxNorm: 038217 Tablet(s) TAKE 2 TABLETS BY MOUTH AT BEDTIME NEEDED 01/12/2017 04/09/2017 Inactive tramadol 50 mg tablet RxNorm: 980566 1-2 Tablet(s) PO Q6 PRN pain 12/31/2016 08/24/2017 Inactive folic acid 1 mg tablet RxNorm: 901047 TAKE ONE TABLET BY MOUTH DAILY 12/24/2016 12/10/2017 Inactive tramadol 50 mg tablet RxNorm: 953458 1-2 Tablet(s) PO Q6 PRN pain 12/12/2016 12/16/2016 Inactive tramadol 50 mg tablet RxNorm: 187772 1-2 Tablet(s) PO Q6 PRN pain 12/12/2016 12/11/2016 Inactive clonazepam 0.5 mg tablet RxNorm: 702676 Tablet(s) TAKE 2 TABLETS BY MOUTH AT BEDTIME NEEDED 12/09/2016 01/11/2017 Inactive pravastatin 80 mg tablet RxNorm: 850815 TAKE ONE TABLET BY MOUTH EVERY EVENING 11/11/2016 08/07/2017 Inactive Mirapex 0.5 mg tablet RxNorm: 615152 TAKE ONE TABLET BY MOUTH EVERY NIGHT AT BEDTIME 10/29/2016 01/18/2017 Inactive Prozac 40 mg capsule RxNorm: 896488 TAKE ONE CAPSULE BY MOUTH DAILY 10/29/2016 06/23/2017 Inactive spironolactone 25 mg tablet RxNorm: 971351 TAKE ONE TABLET BY MOUTH DAILY 10/29/2016 12/04/2016 Inactive clonazepam 0.5 mg tablet RxNorm: 750280 Tablet(s) TAKE 2 TABLETS BY MOUTH AT BEDTIME NEEDED 09/24/2016 11/22/2016 Inactive Lomotil 2.5 mg-0.025 mg tablet RxNorm: 1667040 1 Tablet(s) PO daily as needed 07/30/2016 01/23/2017 Inactive sucralfate 1 gram tablet RxNorm: 622787 TAKE ONE-HALF TABLET BY MOUTH TWO TIMES A DAY ONE HOUR BEFORE MEALS 07/28/201608/24 Inactive losartan 100 mg tablet RxNorm: 512731 TAKE ONE TABLET BY MOUTH DAILY 07/28/2016 01/23/2017 Inactive Lialda 1.2 gram tablet,delayed release RxNorm: 432429 3 Tablet(s) PO daily 07/02/2016 08/24/2017 Inactive Mirapex 0.5 mg tablet RxNorm: 921480 TAKE ONE TABLET BY MOUTH EVERY NIGHT AT BEDTIME 06/27/2016 10/24/2016 Inactive clonazepam 0.5 mg tablet RxNorm: 265752 Tablet(s) TAKE 2 TABLETS BY MOUTH AT BEDTIME NEEDED 06/27/2016 01/11/2017 Inactive clonazepam 0.5 mg tablet RxNorm: 19740520 Tablet(s) TAKE 2 TABLETS BY MOUTH AT BEDTIME NEEDED 04/29/2016 06/25/2016 Inactive folic acid 1 mg tablet RxNorm: 998649 TAKE ONE TABLET BY MOUTH DAILY 02/28/2016 11/23/2016 Inactive clonazepam 0.5 mg tablet RxNorm: 370082 Tablet(s) TAKE 2 TABLETS BY MOUTH AT BEDTIME NEEDED 02/26/2016 01/11/2017 Inactive OneTouch Ultra Test strips RxNorm: TEST ONCE DAILY 02/25/2016 08/22/2016 Inactive sucralfate 1 gram tablet RxNorm: 789141 TAKE ONE-HALF TABLET BY MOUTH TWO TIMES A DAY ONE HOUR BEFORE MEALS 01/28/201607/25 Inactive Mirapex 0.5 mg tablet RxNorm: 654690 TAKE ONE TABLET BY MOUTH EVERY NIGHT AT BEDTIME 01/28/2016 06/25/2016 Inactive spironolactone 25 mg tablet RxNorm: 080283 TAKE ONE TABLET BY MOUTH DAILY 01/28/2016 10/23/2016 Inactive Lomotil 2.5 mg-0.025 mg tablet RxNorm: 8937193 1 Tablet(s) PO daily as needed 12/05/2015 01/11/2017 Inactive Klor-Con M20 mEq tablet,extended release RxNorm: 955666 TAKE ONE TABLET BY MOUTH THREE TIMES A DAY 12/05/2015 08/24/2017 Inactive losartan 100 mg tablet RxNorm: 434277 TAKE ONE TABLET BY MOUTH DAILY 11/22/2015 07/27/2016 Inactive amlodipine 5 mg tablet RxNorm: 047292 TAKE ONE TABLET BY MOUTH DAILY 11/13/2015 11/06/2016 Inactive Refill not appropriate clonazepam 0.5 mg tablet RxNorm: 397450 Tablet(s) TAKE 2 TABLETS BY MOUTH AT BEDTIME NEEDED 11/08/2015 01/11/2017 Inactive clonazepam 0.5 mg tablet RxNorm: 508861 Tablet(s) TAKE 2 TABLETS BY MOUTH AT BEDTIME NEEDED 11/02/2015 01/29/2016 Inactive Prozac 40 mg capsule RxNorm: 920094 1 Capsule(s) PO daily 10/3010/24/2016 Inactive pravastatin 80 mg tablet RxNorm: 904915 1 Tablet(s) PO QPM 10/23/2016 Inactive OneTouch Ultra Test strips RxNorm: TEST ONCE DAILY 10/30/2015 01/27/2016 Inactive Imuran 50 mg tablet RxNorm: 049313 1.5 (75) Tablet(s) PO daily 08/17/2015 08/10/2016 Inactive K75.4 clonazepam 0.5 mg tablet RxNorm: 301520 Tablet(s) TAKE 2 TABLETS BY MOUTH AT BEDTIME NEEDED 08/10/2015 01/11/2017 Inactive Imuran 50 mg tablet RxNorm: 456273 1.5 (75) Tablet(s) PO daily 08/10/2015 08/16/2015 Inactive OneTouch Ultra Test strips RxNorm: TEST ONCE DAILY 08/09/2015 10/29/2015 Inactive Vitamin D2 50,000 unit capsule RxNorm: 978657 1 Capsule(s) PO QW 08/07/2015 01/11/2017 Inactive Mirapex 0.5 mg tablet RxNorm: 501683 Tablet(s) TAKE ONE TABLET BY MOUTH EVERY NIGHT AT BEDTIME 07/19/2015 01/14/2016 Inactive Lomotil 2.5 mg-0.025 mg tablet RxNorm: 3829079 1 Tablet(s) PO daily as needed 06/06/2015 01/11/2017 Inactive clonazepam 0.5 mg tablet RxNorm: 281037 Tablet(s) TAKE 2 TABLETS BY MOUTH AT BEDTIME NEEDED 05/10/2015 08/06/2015 Inactive sucralfate 1 gram tablet RxNorm: 482955 TAKE ONE-HALF TABLET BY MOUTH TWO TIMES A DAY ONE HOUR BEFORE MEALS 05/04/201501/26 Inactive meclizine 25 mg tablet RxNorm: 867393 1/2-1 Tablet(s) PO Q6 PRN 03/15/2015 08/24/2017 Inactive spironolactone 25 mg tablet RxNorm: 490826 1 Tablet(s) PO daily 03/14/2015 01/27/2016 Inactive spironolactone 25 mg tablet RxNorm: 238518 1 Tablet(s) PO daily 03/14/2015 03/13/2015 Inactive clonazepam 0.5 mg tablet RxNorm: 149904 TAKE 2 TABLETS BY MOUTH AT BEDTIME NEEDED 02/08/2015 05/02/2015 Inactive folic acid 1 mg tablet RxNorm: 476617 1 Tablet(s) PO daily 02/01/2016 Inactive clonazepam 0.5 mg tablet RxNorm: 605506 TAKE 2 TABLETS BY MOUTH AT BEDTIME NEEDED 02/06/2015 02/08/2015 Inactive amlodipine 10 mg tablet RxNorm: 431424 1/2 Tablet(s) PO daily 02/06/2015 07/18/2015 Inactive this replaces her 5mg pill OneTouch Ultra Test strips RxNorm: TEST ONCE DAILY 01/30/2015 07/28/2015 Inactive Mirapex 0.5 mg tablet RxNorm: 728787 TAKE ONE TABLET BY MOUTH EVERY NIGHT AT BEDTIME 01/29/2015 07/18/2015 Inactive sucralfate 1 gram tablet RxNorm: 430624 TAKE ONE-HALF TABLET BY MOUTH TWO TIMES A DAY ONE HOUR BEFORE MEALS 01/11/201504/10 Inactive OneTouch Ultra Test strips RxNorm: 1 Miscellaneous daily 11/1401/29/2015 Inactive amlodipine 10 mg tablet RxNorm: 873305 1 Tablet(s) PO daily 02/05/2015 Inactive this replaces her 5mg pill clonazepam 0.5 mg tablet RxNorm: 209118 2 Tablet(s) PO QHS 10/201402/05/2015 Inactive sucralfate 1 gram tablet RxNorm: 779763 1/2 Tablet(s) PO BID 1 hour before meal 10/11/2014 01/08/2015 Inactive losartan 100 mg tablet RxNorm: 758793 1 Tablet(s) PO daily 04/201410/05/2015 Inactive amlodipine 5 mg tablet RxNorm: 841623 1 Tablet(s) PO daily 04/201410/30/2014 Inactive Imuran 50 mg tablet RxNorm: 604069 1.5 (75) Tablet(s) PO daily 10/11/2014 08/09/2015 Inactive Lomotil 2.5 mg-0.025 mg tablet RxNorm: 5991222 1 Tablet(s) PO daily as needed 10/11/2014 06/05/2015 Inactive pravastatin 80 mg tablet RxNorm: 160540 1 Tablet(s) PO QPM 04/201410/05/2015 Inactive Klor-Con M20 mEq tablet,extended release RxNorm: 661997 1 Tablet(s) PO TID 10/11/2014 10/05/2015 Inactive Mirapex 0.5 mg tablet RxNorm: 297606 1 Tablet(s) PO QHS 201401/28/2015 Inactive Prozac 40 mg capsule RxNorm: 260008 1 Capsule(s) PO daily 10/1110/05/2015 Inactive Colazal 750 mg capsule RxNorm: 621988 1 Capsule(s) PO TID No Start Date Active Combigan 0.2 %-0.5 % eye drops RxNorm: 850825 1 Drop(s) ophthalmic (eye) BID No Start Date Active Lumigan 0.01 % eye drops RxNorm: 3750520 1 Drop(s) OPH QHS No Start Date Active Prolia 60 mg/mL subcutaneous syringe RxNorm: 514415 1 Milliliter(s) SQ every 6 months No Start Date Active Vitamin D2 50,000 unit capsule RxNorm: 464118 1 Capsule(s) PO QW No Start Date 08/06/2015 Inactive OneTouch Ultra Test strips RxNorm: 1 Miscellaneous daily No Start Date 11/13/2014 Inactive Plavix 75 mg tablet RxNorm: 324572 1 Tablet(s) PO daily No Start Date 06/17/2017 Inactive Lomotil 2.5 mg-0.025 mg tablet RxNorm: 1793071 1 Tablet(s) PO daily as needed No Start Date 10/10/2014 Inactive folic acid 1 mg tablet RxNorm: 480749 1 Tablet(s) PO daily No Start Date 02/06/2015 Inactive amlodipine 5 mg tablet RxNorm: 948641 1 Tablet(s) PO daily No Start Date 10/10/2014 Inactive Imuran 50 mg tablet RxNorm: 204920 1 1/2 (75) Tablet(s) PO daily No Start Date 10/10/2014 Inactive Boniva 3 mg/3 mL intravenous syringe RxNorm: 443547 Milliliter(s) IV No Start Date 07/18/2015 Inactive potassium chloride 20 meq RxNorm: 681778 1 PO TID No Start Date 10/10/2014 Inactive sucralfate 1 gram tablet RxNorm: 419638 1/2 Tablet(s) PO BID 1 hour before meal No Start Date 10/10/2014 Inactive losartan 100 mg tablet RxNorm: 242684 1 Tablet(s) PO daily No Start Date 10/10/2014 Inactive Vitamin D3 2,000 unit tablet RxNorm: 097077 1 Tablet(s) PO daily No Start Date 08/23/2015 Inactive Calcium + D oral RxNorm: 873136 oral No Start Date 08/24/2017 Inactive Prozac 40 mg capsule RxNorm: 998167 1 Capsule(s) PO daily No Start Date 10/10/2014 Inactive timolol 0.5 % eye drops RxNorm: 083328 1 Drop(s) OPH BID No Start Date 12/28/2017 Inactive clonazepam 0.5 mg tablet RxNorm: 485721 2 Tablet(s) PO QHS No Start Date 10/16/2014 Inactive amlodipine 5 mg tablet RxNorm: 969921 1 Tablet(s) PO daily No Start Date 08/22/2015 Inactive pravastatin 80 mg tablet RxNorm: 646416 1 Tablet(s) PO QPM No Start Date 10/10/2014 Inactive Lialda 1.2 gram tablet,delayed release RxNorm: 031895 3 Tablet(s) PO daily No Start Date 07/01/2016 Inactive Alavert 10 mg disintegrating tablet RxNorm: 861149 1 Tablet(s) PO daily as needed No [...] 31.9 pg 02/23/2018 Cbc With Differential Ord2 Pondera% 8.8 % 02/23/2018 Cbc With Differential Ord2 [...] 1.24 K/ul 02/23/2018 Cbc With Differential Ord2 [place] ABS# 0.5 K/ul 02/23/2018 Cbc With Differential Ord2 Eos ABS# 0.1 K/ul 02/23/2018 Cbc With Differential Ord2 Baso ABS# 0.0 K/ul 02/23/2018 Comp Metabolic Rlh132 NA 136 mEq/L 02/23/2018 Comp Metabolic Ruv491 K 4.0 mEq/L 02/23/2018 Comp Metabolic Npw076 CL 105 mEq/L 02/23/2018 Comp Metabolic Fuj062 CO2 20.0 mEq/L 02/23/2018 Comp Metabolic Qqw460 ANION GAP 15 02/23/2018 Comp Metabolic Cxf487 GLUCOSE 129 mg/dL 02/23/2018 Comp Metabolic Phm541 Creat 0.9 mg/dL 02/23/2018 Comp Metabolic Fiy060 eGFR 66 ml/min/1.73m2 02/23/2018 Comp Metabolic Jwy568 BUN 11 mg/dL 02/23/2018 Comp Metabolic Ojn511 B/C Ratio 12.2 Ratio 02/23/2018 Comp Metabolic Brm040 CALCIUM 8.6 mg/dL 02/23/2018 Comp Metabolic Rtg886 ALK PHOS 43 U/L 02/23/2018 Comp Metabolic Ydi052 AST(SGOT) 33 U/L 02/23/2018 Comp Metabolic Huk593 ALT(SGPT) 24 U/L 02/23/2018 Comp Metabolic Rgf483 BILI T 0.5 mg/dL 02/23/2018 Comp Metabolic Yxx378 ALBUMIN 4.2 g/dL 02/23/2018 Comp Metabolic Uer474 TPRO 6.8 g/dL 02/23/2018 Comp Metabolic Rex271 GLOB 2.6 g/dL 02/23/2018 Comp Metabolic Aon219 A/G Ratio 1.6 Ratio 02/23/2018 Comp Metabolic Zzj408 Osmo 273 mOsmo 02/23/2018 Vitamin D 25 Oh Agq6725 VITAMIN D, 25 HYDROXY 29.25 ng/mL Sed Rate Ord21 ESR 8 mm/hr 02/23/2018 Hepatic Ssc694 ALBUMIN 4.3 g/dL 01/05/2018 Hepatic Uyj297 TPRO 6.7 g/dL 01/05/2018 Hepatic Aoo089 GLOB 2.5 g/dL 01/05/2018 Hepatic Xhn846 A/G Ratio 1.7 Ratio 01/05/2018 Hepatic Ojf788 ALK PHOS 53 U/L 01/05/2018 Hepatic Qsk715 ALT(SGPT) 31 U/L 01/05/2018 Hepatic Nqc272 AST(SGOT) 44 U/L 01/05/2018 Hepatic Rbq493 BILI T 0.4 mg/dL 01/05/2018 Hepatic Eov947 BILI D 0.1 mg/dL 01/05/2018 Hepatic Bym222 BILI I 0.3 mg/dL 01/05/2018 Comp Metabolic Nmd604 NA 133 mEq/L 10/20/2017 Comp Metabolic Rfd946 K 4.1 mEq/L 10/20/2017 Comp Metabolic Mhe073 CL 103 mEq/L 10/20/2017 Comp Metabolic Xew807 CO2 23.0 mEq/L 10/20/2017 Comp Metabolic Ljn578 ANION GAP 11 10/20/2017 Comp Metabolic Kzs423 GLUCOSE 118 mg/dL 10/20/2017 Comp Metabolic Uzv747 Creat 0.9 mg/dL 10/20/2017 Comp Metabolic Yep435 eGFR 64 ml/min/1.73m2 10/20/2017 Comp Metabolic Zpz926 BUN 14 mg/dL 10/20/2017 Comp Metabolic Qpk241 B/C Ratio 15.2 Ratio 10/20/2017 Comp Metabolic Mao908 CALCIUM 8.8 mg/dL 10/20/2017 Comp Metabolic Npj666 ALK PHOS 43 U/L 10/20/2017 Comp Metabolic Nzu985 AST(SGOT) 31 U/L 10/20/2017 Comp Metabolic Llx861 ALT(SGPT) 25 U/L 10/20/2017 Comp Metabolic Zbc176 BILI T 0.4 mg/dL 10/20/2017 Comp Metabolic Qhs094 ALBUMIN 4.1 g/dL 10/20/2017 Comp Metabolic Lqa746 TPRO 6.6 g/dL 10/20/2017 Comp Metabolic Xdr438 GLOB 2.5 g/dL 10/20/2017 Comp Metabolic Qqq157 A/G Ratio 1.6 Ratio 10/20/2017 Comp Metabolic Hut973 Osmo 268 mOsmo 10/20/2017 Vitamin D 25 Oh Lij1406 VITAMIN D, 25 HYDROXY 42.65 ng/mL C-Reactive [...] 32.0 pg 10/20/2017 Cbc With Differential Ord2 [place]% 8.6 % 10/20/2017 Cbc With Differential Ord2 [...] 1.16 K/ul 10/20/2017 Cbc With Differential Ord2 [place] ABS# 0.5 K/ul 10/20/2017 Cbc With Differential [...] 32.2 pg 07/21/2017 Cbc With Differential Ord2 [place]% 9.7 % 07/21/2017 Cbc With Differential Ord2 [...] 1.20 K/ul 07/21/2017 Cbc With Differential Ord2 [place] ABS# 0.6 K/ul 07/21/2017 Cbc With Differential Ord2 Eos ABS# 0.0 K/ul 07/21/2017 Cbc With Differential Ord2 Baso ABS# 0.0 K/ul 07/21/2017 Sed Rate Ord21 ESR 14 mm/hr 07/21/2017 Comp Metabolic Rte721 NA 135 mEq/L 07/21/2017 Comp Metabolic Gpl313 K 4.5 mEq/L 07/21/2017 Comp Metabolic Xnr904 CL 101 mEq/L 07/21/2017 Comp Metabolic Efo225 CO2 26.0 mEq/L 07/21/2017 Comp Metabolic Gkz340 ANION GAP 13 07/21/2017 Comp Metabolic Mew708 GLUCOSE 97 mg/dL 07/21/2017 Comp Metabolic Rjt955 Creat 0.9 mg/dL 07/21/2017 Comp Metabolic Fdl342 eGFR 66 ml/min/1.73m2 07/21/2017 Comp Metabolic Ndk837 BUN 13 mg/dL 07/21/2017 Comp Metabolic Cbh431 B/C Ratio 14.4 Ratio 07/21/2017 Comp Metabolic Mah125 CALCIUM 9.2 mg/dL 07/21/2017 Comp Metabolic Zqj568 ALK PHOS 46 U/L 07/21/2017 Comp Metabolic Kxd096 AST(SGOT) 31 U/L 07/21/2017 Comp Metabolic Uma495 ALT(SGPT) 19 U/L 07/21/2017 Comp Metabolic Baa214 BILI T 0.5 mg/dL 07/21/2017 Comp Metabolic Sig564 ALBUMIN 4.5 g/dL 07/21/2017 Comp Metabolic Vuq929 TPRO 7.2 g/dL 07/21/2017 Comp Metabolic Lbr593 GLOB 2.7 g/dL 07/21/2017 Comp Metabolic Gmh566 A/G Ratio 1.7 Ratio 07/21/2017 Comp Metabolic Eva734 Osmo 270 mOsmo 07/21/2017 Vitamin D 25 Oh Yoh8926 VITAMIN D, 25 HYDROXY 31.39 ng/mL C-Reactive [...] 31.9 pg 04/14/2017 Cbc With Differential Ord2 [place]% 9.1 % 04/14/2017 Cbc With Differential Ord2 [...] 1.47 K/ul 04/14/2017 Cbc With Differential Ord2 [place] ABS# 0.7 K/ul 04/14/2017 Cbc With Differential Ord2 Eos ABS# 0.0 K/ul 04/14/2017 Cbc With Differential Ord2 Baso ABS# 0.0 K/ul 04/14/2017 Comp Metabolic Ayb783 NA 136 mEq/L 04/14/2017 Comp Metabolic Vcc447 K 4.4 mEq/L 04/14/2017 Comp Metabolic Hgq563 CL 104 mEq/L 04/14/2017 Comp Metabolic Goj911 CO2 21.0 mEq/L 04/14/2017 Comp Metabolic Gnv608 ANION GAP 15 04/14/2017 Comp Metabolic Zvg092 GLUCOSE 112 mg/dL 04/14/2017 Comp Metabolic Nei696 Creat 1.1 mg/dL 04/14/2017 Comp Metabolic Yww174 eGFR 51 ml/min/1.73m2 04/14/2017 Comp Metabolic Rml120 BUN 16 mg/dL 04/14/2017 Comp Metabolic Grb580 B/C Ratio 14.3 Ratio 04/14/2017 Comp Metabolic Zsy943 CALCIUM 8.9 mg/dL 04/14/2017 Comp Metabolic Jaa139 ALK PHOS 39 U/L 04/14/2017 Comp Metabolic Zcp413 AST(SGOT) 24 U/L 04/14/2017 Comp Metabolic Nlg039 ALT(SGPT) 18 U/L 04/14/2017 Comp Metabolic Kof909 BILI T 0.5 mg/dL 04/14/2017 Comp Metabolic Gmb942 ALBUMIN 4.3 g/dL 04/14/2017 Comp Metabolic Lxh086 TPRO 6.8 g/dL 04/14/2017 Comp Metabolic Tcs705 GLOB 2.5 g/dL 04/14/2017 Comp Metabolic Qij023 A/G Ratio 1.7 Ratio 04/14/2017 Comp Metabolic Kvn427 Osmo 274 mOsmo 04/14/2017 Vitamin D 25 Oh Cml3899 VITAMIN D, 25 HYDROXY 29.88 ng/mL Sed Rate Ord21 ESR 15 mm/hr 04/14/2017 C-Reactive Protein Qnt Crqnt CRP 0.1 mg/dl 04/14/2017 C-Reactive Protein Qnt Crqnt CRP 0.1 mg/dl 02/09/2017 Comp Metabolic Dxt159 NA 135 mEq/L 02/09/2017 Comp Metabolic Rjl326 K 4.4 mEq/L 02/09/2017 Comp Metabolic Ffx079 CL 102 mEq/L 02/09/2017 Comp Metabolic Fwu463 CO2 23.0 mEq/L 02/09/2017 Comp Metabolic Mxe076 ANION GAP 14 02/09/2017 Comp Metabolic Uqr010 GLUCOSE 98 mg/dL 02/09/2017 Comp Metabolic Jfd932 Creat 0.9 mg/dL 02/09/2017 Comp Metabolic Dtx396 eGFR 65 ml/min/1.73m2 02/09/2017 Comp Metabolic Vcb111 BUN 18 mg/dL 02/09/2017 Comp Metabolic Uhy047 B/C Ratio 19.8 Ratio 02/09/2017 Comp Metabolic Mvj974 CALCIUM 9.2 mg/dL 02/09/2017 Comp Metabolic Gym835 ALK PHOS 42 U/L 02/09/2017 Comp Metabolic Bnt138 AST(SGOT) 24 U/L 02/09/2017 Comp Metabolic Ovj720 ALT(SGPT) 16 U/L 02/09/2017 Comp Metabolic Fdn281 BILI T 0.4 mg/dL 02/09/2017 Comp Metabolic Cqd013 ALBUMIN 4.4 g/dL 02/09/2017 Comp Metabolic Afs894 TPRO 7.0 g/dL 02/09/2017 Comp Metabolic Dlt269 GLOB 2.6 g/dL 02/09/2017 Comp Metabolic Csu378 A/G Ratio 1.7 Ratio 02/09/2017 Comp Metabolic Xjv847 Osmo 272 mOsmo 02/09/2017 Cbc With Differential [...] 32.5 pg 02/09/2017 Cbc With Differential Ord2 [place]% 8.7 % 02/09/2017 Cbc With Differential Ord2 [...] 1.06 K/ul 02/09/2017 Cbc With Differential Ord2 [place] ABS# 0.6 K/ul 02/09/2017 Cbc With Differential Ord2 Eos ABS# 0.0 K/ul 02/09/2017 Cbc With Differential Ord2 Baso ABS# 0.0 K/ul 02/09/2017 Vitamin D 25 Oh Wdl3984 VITAMIN D, 25 HYDROXY 36.00 ng/mL Sed Rate Ord21 ESR 16 mm/hr 02/09/2017 %Hba1C Bep245 % HbA1c 48694-4 6.1 % 05/20/2016 %Hba1C Nqi698 Gluc Ave 128 mg/dL 05/20/2016 Lipid Ord30 CHOL 212 mg/dL 05/20/2016 Lipid Ord30 HDL 52.0 mg/dl 05/20/2016 Lipid Ord30 TRIG 149 mg/dL 05/20/2016 Lipid Ord30 LDL 130 mg/dL 05/20/2016 Lipid Ord30 C/HDL 4.1 Ratio 05/20/2016 Comp Metabolic Fjm099 NA 134 mEq/L 04/21/2016 Comp Metabolic Ssp323 K 5.0 mEq/L 04/21/2016 Comp Metabolic Aof812 CL 103 mEq/L 04/21/2016 Comp Metabolic Vsa119 CO2 24.0 mEq/L 04/21/2016 Comp Metabolic Szr642 ANION GAP 12 04/21/2016 Comp Metabolic Pki052 GLUCOSE 122 mg/dL 04/21/2016 Comp Metabolic Kdh910 Creat 1.1 mg/dL 04/21/2016 Comp Metabolic Ivb366 eGFR 52 ml/min/1.73m2 04/21/2016 Comp Metabolic Uka076 BUN 24 mg/dL 04/21/2016 Comp Metabolic Qnm797 B/C Ratio 21.6 Ratio 04/21/2016 Comp Metabolic Uxs296 CALCIUM 9.7 mg/dL 04/21/2016 Comp Metabolic Qpw607 ALK PHOS 51 U/L 04/21/2016 Comp Metabolic Nkz500 AST(SGOT) 23 U/L 04/21/2016 Comp Metabolic Nuh465 ALT(SGPT) 17 U/L 04/21/2016 Comp Metabolic Oyz340 BILI T 0.5 mg/dL 04/21/2016 Comp Metabolic Tok689 ALBUMIN 4.4 g/dL 04/21/2016 Comp Metabolic Swx670 TPRO 7.3 g/dL 04/21/2016 Comp Metabolic Neq673 GLOB 2.9 g/dL 04/21/2016 Comp Metabolic Zdu094 A/G Ratio 1.5 Ratio 04/21/2016 Comp Metabolic Jsr539 Osmo 274 mOsmo 04/21/2016 Cbc With Differential [...] 32.0 pg 04/21/2016 Cbc With Differential Ord2 [place]% 9.1 % 04/21/2016 Cbc With Differential Ord2 [...] 1.39 K/ul 04/21/2016 Cbc With Differential Ord2 [place] ABS# 0.6 K/ul 04/21/2016 Cbc With Differential Ord2 Eos ABS# 0.1 K/ul 04/21/2016 Cbc With Differential Ord2 Baso ABS# 0.0 K/ul 04/21/2016 Bili D Ord93 BILI D 0.1 mg/dL 04/21/2016 Bili D Ord93 BILI I 0.4 mg/dL 04/21/2016 Vitamin D 25 Oh [id number] VITAMIN D, 25 HYDROXY 51.65 ng/mL Sed Rate Ord21 ESR 26 mm/hr 04/21/2016 C-Reactive Protein Qnt Crqnt CRP 0.1 mg/dl 04/21/2016 Comp Metabolic Qnn540 NA 133 mEq/L 03/18/2016 Comp Metabolic Smi197 K 4.9 mEq/L 03/18/2016 Comp Metabolic Agn905 CL 102 mEq/L 03/18/2016 Comp Metabolic Cut266 CO2 25.0 mEq/L 03/18/2016 Comp Metabolic Fsd031 ANION GAP 11 03/18/2016 Comp Metabolic Tpx167 GLUCOSE 114 mg/dL 03/18/2016 Comp Metabolic Xvp740 Creat 1.1 mg/dL 03/18/2016 Comp Metabolic Kot865 eGFR 54 ml/min/1.73m2 03/18/2016 Comp Metabolic Jib346 BUN 23 mg/dL 03/18/2016 Comp Metabolic Bwd156 B/C Ratio 21.3 Ratio 03/18/2016 Comp Metabolic Bfp404 CALCIUM 9.7 mg/dL 03/18/2016 Comp Metabolic Npk611 ALK PHOS 54 U/L 03/18/2016 Comp Metabolic Ehw011 AST(SGOT) 21 U/L 03/18/2016 Comp Metabolic Hwc266 ALT(SGPT) 15 U/L 03/18/2016 Comp Metabolic Jtr831 BILI T 0.4 mg/dL 03/18/2016 Comp Metabolic Zbh165 ALBUMIN 4.4 g/dL 03/18/2016 Comp Metabolic Ndm043 TPRO 7.4 g/dL 03/18/2016 Comp Metabolic Alj076 GLOB 3.0 g/dL 03/18/2016 Comp Metabolic Mgh408 A/G Ratio 1.5 Ratio 03/18/2016 Comp Metabolic Vtb049 Osmo 271 mOsmo 03/18/2016 Vitamin D 25 Oh Abm4773 VITAMIN D, 25 HYDROXY 46.10 ng/mL Sed Rate Ord21 ESR 26 mm/hr 02/13/2016 Comp Metabolic Ydc987 NA 133 mEq/L 02/13/2016 Comp Metabolic Fdj931 K 4.8 mEq/L 02/13/2016 Comp Metabolic Oai350 CL 104 mEq/L 02/13/2016 Comp Metabolic Eea801 CO2 23.0 mEq/L 02/13/2016 Comp Metabolic Vsc262 ANION GAP 11 02/13/2016 Comp Metabolic Xcq624 GLUCOSE 104 mg/dL 02/13/2016 Comp Metabolic Bnz531 Creat 1.0 mg/dL 02/13/2016 Comp Metabolic Tpm476 eGFR 56 ml/min/1.73m2 02/13/2016 Comp Metabolic Bby177 BUN 25 mg/dL 02/13/2016 Comp Metabolic Vpm325 B/C Ratio 24.0 Ratio 02/13/2016 Comp Metabolic Cww792 CALCIUM 9.1 mg/dL 02/13/2016 Comp Metabolic Wmp334 ALK PHOS 43 U/L 02/13/2016 Comp Metabolic Mnq167 AST(SGOT) 21 U/L 02/13/2016 Comp Metabolic Kxg225 ALT(SGPT) 17 U/L 02/13/2016 Comp Metabolic Vju303 BILI T 0.4 mg/dL 02/13/2016 Comp Metabolic Tqr057 ALBUMIN 4.3 g/dL 02/13/2016 Comp Metabolic Gqs482 TPRO 7.1 g/dL 02/13/2016 Comp Metabolic Xdu354 GLOB 2.9 g/dL 02/13/2016 Comp Metabolic Fgk201 A/G Ratio 1.5 Ratio 02/13/2016 Comp Metabolic Wvr815 Osmo 271 mOsmo 02/13/2016 C-Reactive Protein Qnt [...] 31.6 pg 02/13/2016 Cbc With Differential Ord2 [place]% 9.7 % 02/13/2016 Cbc With Differential Ord2 [...] 1.17 K/ul 02/13/2016 Cbc With Differential Ord2 [place] ABS# 0.6 K/ul 02/13/2016 Cbc With Differential Ord2 Eos ABS# 0.1 K/ul 02/13/2016 Cbc With Differential Ord2 Baso ABS# 0.0 K/ul 02/13/2016 Comp Metabolic Poc597 NA 132 mEq/L 10/08/2015 Comp Metabolic Crv574 K 4.7 mEq/L 10/08/2015 Comp Metabolic Mdh852 CL 101 mEq/L 10/08/2015 Comp Metabolic Ieg405 CO2 24.0 mEq/L 10/08/2015 Comp Metabolic Xnx064 ANION GAP 12 10/08/2015 Comp Metabolic Puq508 GLUCOSE 85 mg/dL 10/08/2015 Comp Metabolic Fla237 Creat 0.9 mg/dL 10/08/2015 Comp Metabolic Obf259 eGFR 66 ml/min/1.73m2 10/08/2015 Comp Metabolic Jhs402 BUN 29 mg/dL 10/08/2015 Comp Metabolic Ksu590 B/C Ratio 32.2 Ratio 10/08/2015 Comp Metabolic Sqi540 CALCIUM 9.1 mg/dL 10/08/2015 Comp Metabolic Awb226 ALK PHOS 40 U/L 10/08/2015 Comp Metabolic Feq331 AST(SGOT) 18 U/L 10/08/2015 Comp Metabolic Xlu844 ALT(SGPT) 14 U/L 10/08/2015 Comp Metabolic Yre503 BILI T 0.3 mg/dL 10/08/2015 Comp Metabolic Qia222 ALBUMIN 4.1 g/dL 10/08/2015 Comp Metabolic Fpv737 TPRO 6.8 g/dL 10/08/2015 Comp Metabolic Hyk361 GLOB 2.7 g/dL 10/08/2015 Comp Metabolic Pva590 A/G Ratio 1.5 Ratio 10/08/2015 Comp Metabolic Slp771 Osmo 270 mOsmo 10/08/2015 C-Reactive Protein Qnt [...] 96.0 fl 10/08/2015 Cbc With Differential Ord2 [place]% 10.5 % 10/08/2015 Cbc With Differential Ord2 [...] 1.24 K/ul 10/08/2015 Cbc With Differential Ord2 [place] ABS# 0.8 K/ul 10/08/2015 Cbc With Differential Ord2 Eos ABS# 0.0 K/ul 10/08/2015 Cbc With Differential Ord2 Baso ABS# 0.0 K/ul 10/08/2015 Sed Rate Ord21 ESR 20 mm/hr 10/08/2015 Vitamin D 25 Oh Foe8654 VITAMIN D, 25 HYDROXY 54.28 ng/mL Tsh Ord6 hTSH II 1.72 uIU/mL 09/26/2015 Free T4 Xch659 FREE T4 0.80 ng/dL 09/26/2015 Comp Metabolic Ngy284 NA 133 mEq/L 08/06/2015 Comp Metabolic Woa013 K 4.6 mEq/L 08/06/2015 Comp Metabolic Dag310 CL 102 mEq/L 08/06/2015 Comp Metabolic Zhv085 CO2 24.0 mEq/L 08/06/2015 Comp Metabolic Dnt821 ANION GAP 12 08/06/2015 Comp Metabolic Nmo186 GLUCOSE 105 mg/dL 08/06/2015 Comp Metabolic Are064 Creat 1.0 mg/dL 08/06/2015 Comp Metabolic Axa241 eGFR 60 ml/min/1.73m2 08/06/2015 Comp Metabolic Eyw956 BUN 28 mg/dL 08/06/2015 Comp Metabolic Mzb489 B/C Ratio 28.6 Ratio 08/06/2015 Comp Metabolic Qnu275 CALCIUM 9.2 mg/dL 08/06/2015 Comp Metabolic Xhm599 ALK PHOS 42 U/L 08/06/2015 Comp Metabolic Hlw570 AST(SGOT) 20 U/L 08/06/2015 Comp Metabolic Okm127 ALT(SGPT) 16 U/L 08/06/2015 Comp Metabolic Bkb644 BILI T 0.3 mg/dL 08/06/2015 Comp Metabolic Yqf636 ALBUMIN 4.3 g/dL 08/06/2015 Comp Metabolic Ccp230 TPRO 6.9 g/dL 08/06/2015 Comp Metabolic Hnz339 GLOB 2.7 g/dL 08/06/2015 Comp Metabolic Nkx789 A/G Ratio 1.6 Ratio 08/06/2015 Comp Metabolic Sue856 Osmo 272 mOsmo 08/06/2015 C-Reactive Protein Qnt Crqnt CRP 0.00 mg/dl 08/06/2015 Vitamin D 25 Oh Zpo4195 VITAMIN D, 25 HYDROXY 36.25 ng/mL Cbc [...] 20.4 % 08/06/2015 Cbc With Differential Ord2 [place]% 8.9 % 08/06/2015 Cbc With Differential Ord2 [...] 1.31 K/ul 08/06/2015 Cbc With Differential Ord2 [place] ABS# 0.6 K/ul 08/06/2015 Cbc With Differential [...] Ord93 BILI I 0.4 mg/dL 04/04/2015 %Hba1C Cep088 % HbA1c 62688-2 5.7 % 04/04/2015 %Hba1C Ipp740 Gluc Ave 117 mg/dL 04/04/2015 Vitamin D 25 Oh Mol4786 VITAMIN D, 25 HYDROXY 47.62 ng/mL C-Reactive [...] Ord2 RDW 13.0 % 04/04/2015 Comp Metabolic Pcv746 NA 132 mEq/L 04/04/2015 Comp Metabolic Zth756 K 4.6 mEq/L 04/04/2015 Comp Metabolic Kkx046 CL 100 mEq/L 04/04/2015 Comp Metabolic Vzs051 CO2 22.0 mEq/L 04/04/2015 Comp Metabolic Pip921 ANION GAP 15 04/04/2015 Comp Metabolic Ctr426 GLUCOSE 118 mg/dL 04/04/2015 Comp Metabolic Gwf376 Creat 1.0 mg/dL 04/04/2015 Comp Metabolic Bnq552 eGFR 60 ml/min/1.73m2 04/04/2015 Comp Metabolic Enq302 BUN 18 mg/dL 04/04/2015 Comp Metabolic Yzb665 B/C Ratio 18.4 Ratio 04/04/2015 Comp Metabolic Zpw881 CALCIUM 9.6 mg/dL 04/04/2015 Comp Metabolic Fji479 ALK PHOS 63 U/L 04/04/2015 Comp Metabolic Nxj307 AST(SGOT) 17 U/L 04/04/2015 Comp Metabolic Csz686 ALT(SGPT) 13 U/L 04/04/2015 Comp Metabolic Maq407 BILI T 0.5 mg/dL 04/04/2015 Comp Metabolic Lja276 ALBUMIN 4.6 g/dL 04/04/2015 Comp Metabolic Hqh303 TPRO 7.4 g/dL 04/04/2015 Comp Metabolic Jkr180 GLOB 2.8 g/dL 04/04/2015 Comp Metabolic Uvz913 A/G Ratio 1.6 Ratio 04/04/2015 Comp Metabolic Ohq858 Osmo 268 mOsmo 04/04/2015 Sed Rate Ord21 ESR 16 mm/hr 04/04/2015 Lipid Ord30 CHOL 214 mg/dL 04/04/2015 Lipid Ord30 HDL 61.0 mg/dl 04/04/2015 Lipid Ord30 TRIG 155 mg/dL 04/04/2015 Lipid Ord30 LDL 122 mg/dL 04/04/2015 Lipid Ord30 C/HDL 3.5 Ratio 04/04/2015 %Hba1C Kzk639 % HbA1c 94099-1 5.9 % 11/28/2014 %Hba1C Loi728 Gluc Ave 123 mg/dL 11/28/2014 Cbc With [...] Rate Ord21 ESR 19 mm/hr 11/27/2014 Hepatic Ifp065 ALBUMIN 4.4 g/dL 11/27/2014 Hepatic Hzw154 TPRO 7.0 g/dL 11/27/2014 Hepatic Lxf291 GLOB 2.6 g/dL 11/27/2014 Hepatic Exs718 A/G Ratio 1.7 Ratio 11/27/2014 Hepatic Znu626 ALK PHOS 63 U/L 11/27/2014 Hepatic Whf970 ALT(SGPT) 14 U/L 11/27/2014 Hepatic Ptt087 AST(SGOT) 19 U/L 11/27/2014 Hepatic Bix619 BILI T 0.4 mg/dL 11/27/2014 Hepatic Kzw757 BILI D 0.1 mg/dL 11/27/2014 Hepatic Yiw810 BILI I 0.3 mg/dL 11/27/2014 Lipid Ord30 [...] 1995 Ears/Nose/Throat oral cavity/pharynx/larynx Overall: hypopharynx benign 12/29/2017 [...] clear 06/17/2017 None Full Exam - General 1995 Ears/Nose/Throat oral cavity/pharynx/larynx Overall: hypopharynx benign 06/17/2017 [...] Formatting Model/CDA Sections, Assigned to/Tabitha Velasquez CPT-4: 41511Jeexqla 12/29/2017 PPPS, SUBSEQ VISIT CPT -4: G0439 09/17/2017 PPPS, SUBSEQ VISIT CPT -4: G0439 08/21/2016 PNEUMOCOCCAL VACC [address]: 57194734 CPT-4: 14908 02/20/2016 ADMIN PNEUMOCOCCAL VACCINE SNOMED CT: 91928476 CPT-4: G0009 02/20/2016 ADMIN INFLUENZA VIRUS VAC CPT-4: G0008 01/23/2016 FLU VACC 4 KATIE 3 YRS PLUS IM SNOMED CT: 89453806 CPT-4: 33520 01/23/2016 PPPS, SUBSEQ VISIT CPT -4: G0439 07/19/2015 Vital Signs Date Vital 01/12/2018 Blood Pressure 1: 124/70 Code : 8480-6 BMI: 30.2 Code : 02369-5 Heart Rate 1 : 59 bpm Height: 5'1" SpO2: 98% Weight: 160 lbs 12/29/2017 Blood Pressure 1: 148/82 Code : 8480-6 BMI: 30.4 Code : 77020-2 Heart Rate 1 : 60 bpm Height: 5'1" SpO2: 99% Weight: 161 lbs 09/17/2017 Height: Weight: 08/25/2017 Blood Pressure 1: 130/72 Code : 8480-6 BMI: 29.9 Code : 55734-8 Heart Rate 1 : 70 bpm Height: 5'1" SpO2: 93% Weight: 158 lbs 07/21/2017 Blood Pressure 1: 150/84 Code : 8480-6 BMI: 29.5 Code : 77359-2 Heart Rate 1 : 62 bpm Height: 5'1" SpO2: 98% Weight: 156 lbs 06/17/2017 Blood Pressure 1: 148/86 Code : 8480-6 BMI: 29.5 Code : 56682-4 Heart Rate 1 : 64 bpm Height: 5'1" SpO2: 98% Weight: 156 lbs 02/17/2017 Blood Pressure 1: 144/86 Code : 8480-6 BMI: 28.7 Code : 29527-7 Heart Rate 1 : 64 bpm Height: 5'1" SpO2: 96% Weight: 152 lbs 01/02/2017 Blood Pressure 1: 132/78 Code : 8480-6 BMI: 28.3 Code : 65843-8 Heart Rate 1 : 71 bpm Height: 5'1" SpO2: 97% Weight: 150 lbs 12/05/2016 Blood Pressure 1: 140/76 Code : 8480-6 BMI: 29.5 Code : 06332-6 Heart Rate 1 : 66 bpm Height: 5'1" SpO2: 98% Weight: 156 lbs 08/21/2016 Blood Pressure 1: 142/78 Code : 8480-6 BMI: 29.9 Code : 74496-7 Heart Rate 1 : 62 bpm Height: 5'1" SpO2: 98% Waist Measure (cm): 79 cm Weight: 158 lbs 08/19/2016 Blood Pressure 1: 142/78 Code : 8480-6 BMI: 29.9 Code : 75282-8 Heart Rate 1 : 62 bpm Height: 5'1" SpO2: 98% Weight: 158 lbs 05/20/2016 Blood Pressure 1: 152/76 Code : 8480-6 Blood Pressure 1: 144/80 Code: 8480-6 BMI: 29.3 Code: 77795-3 Heart Rate 1: 60 bpm Height: 5'1" SpO2: 95% Weight: 155 lbs 01/23/2016 Blood Pressure 1: 138/78 Code : 8480-6 BMI: 29.7 Code : 13916-3 Heart Rate 1 : 64 bpm Height: 5'1" SpO2: 98% Weight: 157 lbs 09/26/2015 Blood Pressure 1: 136/76 Code : 8480-6 BMI: 28.3 Code : 42033-1 Heart Rate 1 : 70 bpm Height: 5'1" SpO2: 98% Weight: 150 lbs 08/23/2015 Blood Pressure 1: 126/78 Code : 8480-6 BMI: 27.8 Code : 90663-7 Heart Rate 1 : 68 bpm Height: 5'1" SpO2: 97% Weight: 147 lbs 07/19/2015 Blood Pressure 1: 146/70 Code : 8480-6 BMI: 26.8 Code : 83613-9 Heart Rate 1 : 58 bpm Height: 5'1" SpO2: 96% Waist Measure (cm): 84 cm Weight: 142 lbs 04/17/2015 Blood Pressure 1: 132/62 Code : 8480-6 BMI: 25.3 Code : 31389-4 Heart Rate 1 : 98 bpm Height: 5'1" SpO2: 97% Weight: 134 lbs 03/15/2015 Blood Pressure 1: 158/72 Code : 8480-6 Blood Pressure 1: 160/70 Code: 8480-6 BMI: 25.5 Code: 67221-1 Heart Rate 1: 74 bpm Heart Rate 1: 72 bpm Height: 5'1" Height: SpO2: 98% Weight: 135 lbs Weight: 02/06/2015 Blood Pressure 1: 142/82 Code : 8480-6 BMI: 25.5 Code : 01035-9 Heart Rate 1 : 82 bpm Height: 5'1" SpO2: 96% Weight: 135 lbs 12/13/2014 Blood Pressure 1: 136/64 Code : 8480-6 BMI: 24.9 Code : 60693-5 Heart Rate 1 : 86 bpm Height: 5'1" SpO2: 95% Weight: 132 lbs 10/11/2014 Blood Pressure 1: 140/80 Code : 8480-6 BMI: 25.1 Code : 26303-6 Heart Rate 1 : 72 bpm Height: [...] ongoing 12/13/2014 chronic fatigue syndrome- sees Jaswant Plazawer in diabetes mellitus Quality NIDDM 12/13/2014 None [...] Present Encounters Encounter Performer Location Codes Date ([id number]) [id number] EST. PATIENT, LEVEL III Diagnosis: Essential (primary) hypertension[ICD10: I10] Diagnosis: Type 2 diabetes mellitus without complications[ICD10: E11.9] Diagnosis: Encounter for immunization[ICD10: Z23] Diagnosis: Muscle weakness (generalized)[ICD10: M62.81] [facility] CPT-4: 14046 01/12/2018 ([id number]) 43356 EST. PATIENT, LEVEL IV Diagnosis: Essential (primary) hypertension[ICD10: I10] Diagnosis: Type 2 diabetes mellitus without complications[ICD10: E11.9] Diagnosis: Encounter for immunization[ICD10: Z23] Diagnosis: Muscle weakness (generalized)[ICD10: M62.81] [facility] CPT-4: 41539 12/29/2017 ([id number]) 65700 EST. PATIENT, LEVEL IV Diagnosis: Essential (primary) hypertension[ICD10: I10] Diagnosis: Muscle weakness (generalized)[ICD10: M62.81] Diagnosis: 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 artery[ICD10: I66.01 ] Mraia Luisa Echeverria MD [facility] CPT-4: 72035 08/25/2017 ([id number]) 84543 EST. PATIENT, LEVEL IV Diagnosis: Essential (primary) hypertension[ICD10: I10] Diagnosis: 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 artery[ICD10: I66.01 ] Maria Luisa Echeverria MD [facility] CPT-4: 76899 07/21/2017 ([id number]) 18543 EST. 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 CPT-4: 93991 06/17/2017 ([id number]) 44142 EST. PATIENT, LEVEL IV Diagnosis: Essential (primary) hypertension[ICD10: I10] Diagnosis: Muscle weakness (generalized)[ICD10: M62.81] Diagnosis: Mixed hyperlipidemia[ICD10: E78.2] Maria Luisa Echeverria MD, [facility] CPT-4: 60023 02/17/2017 ([id number]) 00776 EST. PATIENT, LEVEL III Diagnosis: Essential (primary) hypertension[ICD10: I10] Diagnosis: Muscle weakness (generalized)[ICD10: M62.81] Diamond Echeverria MD, [facility] CPT-4: 63742 01/02/2017 ([id number]) 41583 EST. PATIENT, LEVEL IV Diagnosis: Muscle weakness (generalized)[ICD10: M62.81] Diagnosis: Cerebral infarction, unspecified[ICD10: I63.9] Diagnosis: Essential (primary) hypertension[ICD10: I10] Diagnosis: Gastro-esophageal reflux disease without esophagitis[ICD10: K21.9] Diagnosis: Allergic rhinitis due to pollen[ICD10: J30.1] Diamond Echeverria MD, [facility] CPT-4: 85743 12/05/2016 [id number]) 74923 EST. PATIENT, LEVEL IV Diagnosis: Essential (primary) hypertension[ICD10: I10] Diagnosis: Type 2 diabetes mellitus without complications[ICD10: E11.9] Maria Luisa Echeverria MD [facility] CPT-4: 85956 08/19/2016 [id number] EST. PATIENT, LEVEL IV Diagnosis: Essential (primary) hypertension[ICD10: I10] Diagnosis: Type 2 diabetes mellitus without complications[ICD10: E11.9] Diagnosis: Mixed hyperlipidemia[ICD10: E78.2] Ashley Echeverria MD [facility] CPT-4: 41264 05/20/2016 [id number]) 65929 EST. PATIENT, LEVEL IV Diagnosis: Type 2 diabetes mellitus without complications[ICD10: E11.9] Diagnosis: Family history of other endocrine, nutritional and metabolic diseases [ICD10: Z83.49] Diagnosis: Other fatigue[ICD10: R53.83] Diagnosis: Abnormal weight gain[ICD10: R63.5] Diagnosis: Actinic keratosis[ICD10: L57.0] Maria Luisa Echeverria MD [facility] CPT- 4: 58459 01/23/2016 ([id number]) 87173 EST. PATIENT, LEVEL IV Diagnosis: Family history of other endocrine, nutritional and metabolic diseases [ICD10: Z83.49] Diagnosis: Other fatigue[ICD10: R53.83] Diagnosis: Abnormal weight gain[ICD10: R63.5] Diagnosis: Actinic keratosis[ICD10: L57.0] Diagnosis: Type 2 diabetes mellitus without complications[ICD10: E11.9] Maria Luisa Echeverria MD [facility] CPT-4: 11247 09/26/2015 [id number]) 35543 EST. PATIENT, LEVEL IV Diagnosis: Essential (primary) hypertension[ICD10: I10] Diagnosis: Type 2 diabetes mellitus without complications[ICD10: E11.9] Diagnosis: Other depressive episodes[ICD10: F32.8] Diagnosis: Vitamin D deficiency, unspecified[ICD10: E55.9] Maria Luisa Echeverria MD [facility] CPT-4: 59064 08/23/2015 [id number] 97956 EST. PATIENT, LEVEL IV Diagnosis: Essential (primary) hypertension[ICD10: I10] Diagnosis: Benign paroxysmal vertigo, unspecified ear[ICD10: H81.10] Diagnosis: Type 2 diabetes mellitus without complications[ICD10: E11.9] Maria Luisa Echeverria MD, [facility] CPT-4: 69756 04/17/2015 ([id number]) 27743 EST. PATIENT, LEVEL III Diagnosis: Essential (primary) hypertension[ICD10: I10] Diagnosis: Benign paroxysmal vertigo, unspecified ear[ICD10: H81.10] Diamond Echeverria MD , [facility] CPT-4: 06213 03/15/2015 ([id number]) 00166 EST. PATIENT, LEVEL III Diagnosis: Essential (primary) hypertension[ICD10: I10] Diagnosis: Edema, unspecified[ICD10: R60.9] Diamond Echeverria MD, [facility] CPT-4: 86568 02/06/2015 ([id number]) 02122 EST. PATIENT, LEVEL IV Diagnosis: ESSENTIAL HYPERTENSION[ICD9: 401.9] Diagnosis: HYPERLIPIDEMIA[ICD9: 272.4] Diagnosis: DEPRESSIVE DISORDER NEC[ICD9: 311] Diagnosis: ESOPHAGEAL REFLUX[ICD9: 530.81] Diagnosis: RESTLESS LEGS SYNDROME[ICD9: 333.94] Maria Luisa Echeverria MD, [facility] CPT-4: 53325 12/13/2014 ([id number]) OFFICE VISIT, NEW - LEVEL 4 Diagnosis: ESSENTIAL HYPERTENSION[ICD9: 401.9] Diagnosis: HYPERLIPIDEMIA[ICD9: 272.4] Diagnosis: DEPRESSIVE DISORDER NEC[ICD9: 311] Diagnosis: ESOPHAGEAL REFLUX[ICD9: 530.81] Diagnosis: RESTLESS LEGS SYNDROME[ICD9: 333.94] Maria Luisa Echeverria MD, [facility] CPT-4: 28165 10/11/2014 Plan of Care Planned Activity Notes Codes Status Date Visit Plan: Hypertension - improved control - continue with current medications, continue with no added salt diet. Pt has been encouraged to exercise daily. The pt has been advised to call the office if there are any acute concerns about change in blood pressure readings at home. 01/12/2018 Appointment: Maria Luisa Echeverria WPtel: [address] [place], [place] [id number] (15 min) Moderate 01/12/2018 Patient Education: Patient [...] she stopped therapy when she left the [facility]. She states that she does struggle with her strength. She states that she would rather do activities on her own rather than going to physical therapy. high dose flu shot today due to autoimmune deficiency 12/29/2017 Appointment: Maria Luisa Echeverria WPtel: [address] [place], [place] [phone] (15 min) Moderate 12/29/2017 Patient Education: Patient [...] she stopped therapy when she left the [facility]. She states that she does struggle with her strength. She states that she would rather do activities on her own rather than going to physical therapy. 08/25/2017 Appointment: Maria Luisa Echeverria WPtel[facility] (15 min) Moderate 08/25/2017 Patient Education: [...] therapy. 07/21/2017 Appointment: Maria Luisa Echeverria WPtel: [facility] [place] (15 min) Moderate 07/21/2017 Patient Education: Patient Medication Summary Completed 07/21/2017 Visit Plan: Right Middle Cerebral artery stroke - appt with neurology with Dr. Macario at Neurology. Gait instability - appt with outpt physical therapy Hypertension - stable - continue with current treatment - monitor symptoms DM - diet controlled - 06/17/2017 Appointment: Maria Luisa Echeverria WPtel: [address] [place], [place] [phone] (15 min) Moderate 06/17/2017 Patient Education: Patient [...] medications. 02/17/2017 Appointment: [facility] [phone] [facility] (15 min) Moderate 02/17/2017 Patient Education: Patient Medication Summary Completed 02/17/2017 Care Plan: Referral Order SNOMED-CT : [id number] Pending 02/17/2017 Visit Plan: Hypertension - well controlled - continue with current medications, continue with no added salt diet. Pt has been encouraged to exercise daily. The pt has been advised to call the office if there are any acute concerns about change in blood pressure readings at home. Weakness-recent stroke-strength improving-no changes 01/02/2017 Appointment: Diamond Sawyer WPtel: [phone] (30 min) Complex 01/02/2017 Patient Education: Patient Medication Summary Completed 01/02/2017 Visit Plan: Hypertension - well controlled - continue with current medications, continue with no added salt diet. Pt has been encouraged to exercise daily. The pt has been advised to call the office if there are any acute concerns about change in blood pressure readings at home. Generalized weakness-gait oareuaswher-CJA-uuarmxmd PT-patient to use 4 wheeled walker GERD- dysphagia-refer for speech eval-start pepcid twice daily Allergies-chronic- restart allergy pill as directed 12/05/2016 Appointment: Diamond Sawyer [facility] [phone] [phone] (15 min) Moderate 12/05/2016 Patient Education: Patient [...] surrogate. 08/21/2016 Appointment: Ashley Wooten WPtel: [phone] [facility] [facility] - Annual Wellness Visit 08/21/2016 Patient Education: [...] 08/19/2016 Appointment: [facility]ria [facility]el[facility] [phone] [facility] (15 min) Moderate 08/19/2016 Patient Education: [...] medications. 05/20/2016 Appointment: Ashley Wooten [facility]el[facility] [phone] [facility] (15 min) Moderate 05/20/2016 Patient Education: Patient [...] 01/23/2016 Appointment: [facility]ria [facility]el[facility] [phone] [facility] [place] (15 min) Moderate 01/23/2016 Patient Education: [...] pressure readings at home. 09/26/2015 Appointment: Maria Luias Echeverria WPtel: [facility]5 [facility] (15 min) Moderate 09/26/2015 Patient Education: [...] 08/23/2015 Appointment: Maria Luisa Echeverria WPtel: [facility] (15 min) Moderate 08/22/2015 Appointment: Maria Luisa Echeverria WPtel: [facility] (15 min) Moderate 08/15/2015 Visit Plan: [...] paperwork for health care surrogate. 07/19/2015 Appointment: [facility] - Annual Wellness Visit 07/19/2015 Patient Education: [...] 04/17/2015 Appointment: Maria Lu[facility]verria [facility]Ptel[facility] [phone] [facility] (15 min) Moderate 04/17/2015 Patient Education: [...] 12/13/2014 Appointment: Maria Luisa Echeverria WPtel: [phone] [facility] (15 min) Moderate 12/13/2014 Patient Education: Patient [...] medications. 10/11/2014 Appointment: [facility]verria [facility]el[facility] [phone] [facility] [place] ([place] New Patient 10/11/2014 Appointment: Maria Luisa Echeverria WPtel: [phone] [facility] (15 min) Moderate 10/11/2014 Patient Education: Patient [...] she stopped [facility] when she left [facility]. She states that she does struggle with [...] blood pressure readings at home. Generalized weakness-gait fvuuwscvsou-YVV-lpgabjai PT-patient to use 4 wheeled walker EEMM-lrcxubgfm-ziggp for speech eval-start pepcid twice daily Einrunokh-lnpoykg-actbwek allergy pill as directed . Hypertension - [...] she stopped therapy when she left the [facility]. She states that she does struggle with [...]
--- OUTSIDE RECORDS SUMMARY | 2018-07-02 14:49 | XMS REPORT | CCD ---
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 Name Role Phone PP Unavailable CCM Unavailable Summary Purpose Interface Exchange Insurance Providers Payer name Policy type / Coverage type Covered alliance party ID Effective Begin Date Effective End Date WPS Medicare Part B Medicare Part B [id number] 2017 Unknown [facility] Medicare Part B [id number] Unknown Family history Mother Diagnosis Age At [...] Unknown 3 10/11/[address]: 289609828 Never smoker 10/11/[address]: 197488953 Never drinks alcohol 10/11/2014 Allergies, Adverse Reactions, [...] Fill Instructions Coreg 3.125 mg tablet RxNorm: 481478 TAKE ONE-HALF TABLET BY MOUTH TWICE A DAY 04/19/2018 09/15/2018 Active GigDropperTouch Ultra Test strips RxNorm: TEST 1 TIME DAILY 201804/08/2019 Active Benicar 40 mg tablet RxNorm: 181421 1 Tablet(s) PO daily 201707/23/2018 Active This replaces losartan Benicar 40 mg tablet RxNorm: 890727 1 Tablet(s) PO daily 201702/23/2018 Inactive This replaces losartan clonazepam 0.5 mg tablet RxNorm: 367360 Tablet(s) TAKE 2 TABLETS BY MOUTH AT BEDTIME NEEDED 01/20/2018 04/18/2018 Inactive Coreg 3.125 mg tablet RxNorm: 487032 1/2 Tablet(s) PO BID 201704/18/2018 Inactive Mirapex 0.5 mg tablet RxNorm: 614446 TAKE ONE TABLET BY MOUTH EVERY NIGHT AT BEDTIME 12/21/2017 05/19/2018 Active Plavix 75 mg tablet RxNorm: 984246 TAKE ONE TABLET BY MOUTH DAILY 12/11/2017 03/05/2019 Active folic acid 1 mg tablet RxNorm: 443633 TAKE ONE TABLET BY MOUTH DAILY 12/11/2017 12/05/2018 Active Aspirin Low Dose 81 mg tablet,delayed release RxNorm: 535848 TAKE ONE TABLET BY MOUTH DAILY 11/24/2017 12/28/2017 Inactive Request already responded to by other means (e.g. phone or fax) Aspirin Low Dose 81 mg tablet,delayed release RxNorm: 221222 1 Tablet(s) PO daily 11/18/2017 11/17/2017 Inactive Aspirin Low Dose 81 mg tablet,delayed release RxNorm: 837780 1 Tablet(s) PO daily 11/18/2017 11/23/2017 Inactive clonazepam 0.5 mg tablet RxNorm: 482934 Tablet(s) TAKE 2 TABLETS BY MOUTH AT BEDTIME NEEDED 10/23/2017 01/19/2018 Inactive Lomotil 2.5 mg-0.025 mg tablet RxNorm: 1974922 1 Tablet(s) PO daily as needed 09/28/2017 03/26/2018 Inactive pravastatin 80 mg tablet RxNorm: 580594 TAKE ONE TABLET BY MOUTH EVERY EVENING 08/19/2017 11/11/2018 Active clonazepam 0.5 mg tablet RxNorm: 527459 Tablet(s) TAKE 2 TABLETS BY MOUTH AT BEDTIME NEEDED 07/24/2017 10/20/2017 Inactive Mirapex 0.5 mg tablet RxNorm: 278508 TAKE ONE TABLET BY MOUTH EVERY NIGHT AT BEDTIME 07/23/2017 12/19/2017 Inactive Vitamin D2 50,000 unit capsule RxNorm: 666283 1 Capsule(s) PO QW 07/22/2017 07/21/2017 Inactive Vitamin D2 50,000 unit capsule RxNorm: 615762 1 Capsule(s) PO QW 07/22/2017 10/19/2017 Inactive amlodipine 5 mg tablet RxNorm: 608786 1 Tablet(s) PO daily 01/201812/28/2017 Inactive Refill not appropriate Prozac 40 mg capsule RxNorm: 109079 TAKE ONE CAPSULE BY MOUTH DAILY 06/24/2017 06/18/2018 Active Plavix 75 mg tablet RxNorm: 701345 TAKE ONE TABLET BY MOUTH DAILY 06/18/2017 12/10/2017 Inactive Lomotil 2.5 mg-0.025 mg tablet RxNorm: 4400809 1 Tablet(s) PO daily as needed 06/04/2017 11/17/2017 Inactive losartan 100 mg tablet RxNorm: 945108 TAKE ONE TABLET BY MOUTH DAILY 05/11/2017 02/23/2018 Inactive OneTouch Ultra Test strips RxNorm: TEST 1 TIME DAILY 201704/13/2018 Inactive clonazepam 0.5 mg tablet RxNorm: 371082 Tablet(s) TAKE 2 TABLETS BY MOUTH AT BEDTIME NEEDED 04/14/2017 11/17/2017 Inactive Lomotil 2.5 mg-0.025 mg tablet RxNorm: 7126509 1 Tablet(s) PO daily as needed 03/17/2017 06/03/2017 Inactive Mirapex 0.5 mg tablet RxNorm: 957217 TAKE ONE TABLET BY MOUTH EVERY NIGHT AT BEDTIME 01/19/2017 07/17/2017 Inactive clonazepam 0.5 mg tablet RxNorm: 587465 Tablet(s) TAKE 2 TABLETS BY MOUTH AT BEDTIME NEEDED 01/12/2017 04/09/2017 Inactive tramadol 50 mg tablet RxNorm: 795140 1-2 Tablet(s) PO Q6 PRN pain 12/31/2016 08/24/2017 Inactive folic acid 1 mg tablet RxNorm: 323987 TAKE ONE TABLET BY MOUTH DAILY 12/24/2016 12/10/2017 Inactive tramadol 50 mg tablet RxNorm: 180253 1-2 Tablet(s) PO Q6 PRN pain 12/12/2016 12/16/2016 Inactive tramadol 50 mg tablet RxNorm: 279204 1-2 Tablet(s) PO Q6 PRN pain 12/12/2016 12/11/2016 Inactive clonazepam 0.5 mg tablet RxNorm: 557666 Tablet(s) TAKE 2 TABLETS BY MOUTH AT BEDTIME NEEDED 12/09/2016 01/11/2017 Inactive pravastatin 80 mg tablet RxNorm: 915073 TAKE ONE TABLET BY MOUTH EVERY EVENING 11/11/2016 08/07/2017 Inactive Mirapex 0.5 mg tablet RxNorm: 598125 TAKE ONE TABLET BY MOUTH EVERY NIGHT AT BEDTIME 10/29/2016 01/18/2017 Inactive Prozac 40 mg capsule RxNorm: 908507 TAKE ONE CAPSULE BY MOUTH DAILY 10/29/2016 06/23/2017 Inactive spironolactone 25 mg tablet RxNorm: 864698 TAKE ONE TABLET BY MOUTH DAILY 10/29/2016 12/04/2016 Inactive clonazepam 0.5 mg tablet RxNorm: 19740520 Tablet(s) TAKE 2 TABLETS BY MOUTH AT BEDTIME NEEDED 09/24/2016 11/22/2016 Inactive Lomotil 2.5 mg-0.025 mg tablet RxNorm: 0082520 1 Tablet(s) PO daily as needed 07/30/2016 01/23/2017 Inactive sucralfate 1 gram tablet RxNorm: 385946 TAKE ONE-HALF TABLET BY MOUTH TWO TIMES A DAY ONE HOUR BEFORE MEALS 07/28/201608/24 Inactive losartan 100 mg tablet RxNorm: 650616 TAKE ONE TABLET BY MOUTH DAILY 07/28/2016 01/23/2017 Inactive Lialda 1.2 gram tablet,delayed release RxNorm: 194637 3 Tablet(s) PO daily 07/02/2016 08/24/2017 Inactive Mirapex 0.5 mg tablet RxNorm: 459602 TAKE ONE TABLET BY MOUTH EVERY NIGHT AT BEDTIME 06/27/2016 10/24/2016 Inactive clonazepam 0.5 mg tablet RxNorm: 771217 Tablet(s) TAKE 2 TABLETS BY MOUTH AT BEDTIME NEEDED 06/27/2016 01/11/2017 Inactive clonazepam 0.5 mg tablet RxNorm: 19740520 Tablet(s) TAKE 2 TABLETS BY MOUTH AT BEDTIME NEEDED 04/29/2016 06/25/2016 Inactive folic acid 1 mg tablet RxNorm: 298471 TAKE ONE TABLET BY MOUTH DAILY 02/28/2016 11/23/2016 Inactive clonazepam 0.5 mg tablet RxNorm: 19740520 Tablet(s) TAKE 2 TABLETS BY MOUTH AT BEDTIME NEEDED 02/26/2016 01/11/2017 Inactive OneTouch Ultra Test strips RxNorm: TEST ONCE DAILY 02/25/2016 08/22/2016 Inactive sucralfate 1 gram tablet RxNorm: 821953 TAKE ONE-HALF TABLET BY MOUTH TWO TIMES A DAY ONE HOUR BEFORE MEALS 01/28/201607/25 Inactive Mirapex 0.5 mg tablet RxNorm: 422289 TAKE ONE TABLET BY MOUTH EVERY NIGHT AT BEDTIME 01/28/2016 06/25/2016 Inactive spironolactone 25 mg tablet RxNorm: 563980 TAKE ONE TABLET BY MOUTH DAILY 01/28/2016 10/23/2016 Inactive Lomotil 2.5 mg-0.025 mg tablet RxNorm: 7231680 1 Tablet(s) PO daily as needed 12/05/2015 01/11/2017 Inactive Klor-Con M20 mEq tablet,extended release RxNorm: 751726 TAKE ONE TABLET BY MOUTH THREE TIMES A DAY 12/05/2015 08/24/2017 Inactive losartan 100 mg tablet RxNorm: 701114 TAKE ONE TABLET BY MOUTH DAILY 11/22/2015 07/27/2016 Inactive amlodipine 5 mg tablet RxNorm: 485591 TAKE ONE TABLET BY MOUTH DAILY 11/13/2015 11/06/2016 Inactive Refill not appropriate clonazepam 0.5 mg tablet RxNorm: 517433 Tablet(s) TAKE 2 TABLETS BY MOUTH AT BEDTIME NEEDED 11/08/2015 01/11/2017 Inactive clonazepam 0.5 mg tablet RxNorm: 400796 Tablet(s) TAKE 2 TABLETS BY MOUTH AT BEDTIME NEEDED 11/02/2015 01/29/2016 Inactive Prozac 40 mg capsule RxNorm: 772878 1 Capsule(s) PO daily 10/3010/24/2016 Inactive pravastatin 80 mg tablet RxNorm: 910678 1 Tablet(s) PO QPM 10/23/2016 Inactive OneTouch Ultra Test strips RxNorm: TEST ONCE DAILY 10/30/2015 01/27/2016 Inactive Imuran 50 mg tablet RxNorm: 843163 1.5 (75) Tablet(s) PO daily 08/17/2015 08/10/2016 Inactive K75.4 clonazepam 0.5 mg tablet RxNorm: 112114 Tablet(s) TAKE 2 TABLETS BY MOUTH AT BEDTIME NEEDED 08/10/2015 01/11/2017 Inactive Imuran 50 mg tablet RxNorm: 290656 1.5 (75) Tablet(s) PO daily 08/10/2015 08/16/2015 Inactive OneTouch Ultra Test strips RxNorm: TEST ONCE DAILY 08/09/2015 10/29/2015 Inactive Vitamin D2 50,000 unit capsule RxNorm: 138327 1 Capsule(s) PO QW 08/07/2015 01/11/2017 Inactive Mirapex 0.5 mg tablet RxNorm: 249519 Tablet(s) TAKE ONE TABLET BY MOUTH EVERY NIGHT AT BEDTIME 07/19/2015 01/14/2016 Inactive Lomotil 2.5 mg-0.025 mg tablet RxNorm: 5227401 1 Tablet(s) PO daily as needed 06/06/2015 01/11/2017 Inactive clonazepam 0.5 mg tablet RxNorm: 615167 Tablet(s) TAKE 2 TABLETS BY MOUTH AT BEDTIME NEEDED 05/10/2015 08/06/2015 Inactive sucralfate 1 gram tablet RxNorm: 544734 TAKE ONE-HALF TABLET BY MOUTH TWO TIMES A DAY ONE HOUR BEFORE MEALS 05/04/201501/26 Inactive meclizine 25 mg tablet RxNorm: 285936 1/2-1 Tablet(s) PO Q6 PRN 03/15/2015 08/24/2017 Inactive spironolactone 25 mg tablet RxNorm: 202870 1 Tablet(s) PO daily 03/14/2015 01/27/2016 Inactive spironolactone 25 mg tablet RxNorm: 437682 1 Tablet(s) PO daily 03/14/2015 03/13/2015 Inactive clonazepam 0.5 mg tablet RxNorm: 724863 TAKE 2 TABLETS BY MOUTH AT BEDTIME NEEDED 02/08/2015 05/02/2015 Inactive folic acid 1 mg tablet RxNorm: 920236 1 Tablet(s) PO daily 02/01/2016 Inactive clonazepam 0.5 mg tablet RxNorm: 260280 TAKE 2 TABLETS BY MOUTH AT BEDTIME NEEDED 02/06/2015 02/08/2015 Inactive amlodipine 10 mg tablet RxNorm: 721322 1/2 Tablet(s) PO daily 02/06/2015 07/18/2015 Inactive this replaces her 5mg pill OneTouch Ultra Test strips RxNorm: TEST ONCE DAILY 01/30/2015 07/28/2015 Inactive Mirapex 0.5 mg tablet RxNorm: 890569 TAKE ONE TABLET BY MOUTH EVERY NIGHT AT BEDTIME 01/29/2015 07/18/2015 Inactive sucralfate 1 gram tablet RxNorm: 964673 TAKE ONE-HALF TABLET BY MOUTH TWO TIMES A DAY ONE HOUR BEFORE MEALS 01/11/201504/10 Inactive OneTouch Ultra Test strips RxNorm: 1 Miscellaneous daily 11/1401/29/2015 Inactive amlodipine 10 mg tablet RxNorm: 716726 1 Tablet(s) PO daily 02/05/2015 Inactive this replaces her 5mg pill clonazepam 0.5 mg tablet RxNorm: 812999 2 Tablet(s) PO QHS 10/201402/05/2015 Inactive sucralfate 1 gram tablet RxNorm: 059965 1/2 Tablet(s) PO BID 1 hour before meal 10/11/2014 01/08/2015 Inactive losartan 100 mg tablet RxNorm: 113665 1 Tablet(s) PO daily 04/201410/05/2015 Inactive amlodipine 5 mg tablet RxNorm: 706341 1 Tablet(s) PO daily 04/201410/30/2014 Inactive Imuran 50 mg tablet RxNorm: 851277 1.5 (75) Tablet(s) PO daily 10/11/2014 08/09/2015 Inactive Lomotil 2.5 mg-0.025 mg tablet RxNorm: 8692680 1 Tablet(s) PO daily as needed 10/11/2014 06/05/2015 Inactive pravastatin 80 mg tablet RxNorm: 722705 1 Tablet(s) PO QPM 04/201410/05/2015 Inactive Klor-Con M20 mEq tablet,extended release RxNorm: 404794 1 Tablet(s) PO TID 10/11/2014 10/05/2015 Inactive Mirapex 0.5 mg tablet RxNorm: 563746 1 Tablet(s) PO QHS 201401/28/2015 Inactive Prozac 40 mg capsule RxNorm: 360579 1 Capsule(s) PO daily 10/1110/05/2015 Inactive Colazal 750 mg capsule RxNorm: 479642 1 Capsule(s) PO TID No Start Date Active Combigan 0.2 %-0.5 % eye drops RxNorm: 599275 1 Drop(s) ophthalmic (eye) BID No Start Date Active Lumigan 0.01 % eye drops RxNorm: 3667730 1 Drop(s) OPH QHS No Start Date Active Prolia 60 mg/mL subcutaneous syringe RxNorm: 427134 1 Milliliter(s) SQ every 6 months No Start Date Active Vitamin D2 50,000 unit capsule RxNorm: 000773 1 Capsule(s) PO QW No Start Date 08/06/2015 Inactive OneTouch Ultra Test strips RxNorm: 1 Miscellaneous daily No Start Date 11/13/2014 Inactive Plavix 75 mg tablet RxNorm: 520828 1 Tablet(s) PO daily No Start Date 06/17/2017 Inactive Lomotil 2.5 mg-0.025 mg tablet RxNorm: 7977814 1 Tablet(s) PO daily as needed No Start Date 10/10/2014 Inactive folic acid 1 mg tablet RxNorm: 591719 1 Tablet(s) PO daily No Start Date 02/06/2015 Inactive amlodipine 5 mg tablet RxNorm: 546485 1 Tablet(s) PO daily No Start Date 10/10/2014 Inactive Imuran 50 mg tablet RxNorm: 711936 1 1/2 (75) Tablet(s) PO daily No Start Date 10/10/2014 Inactive Boniva 3 mg/3 mL intravenous syringe RxNorm: 919898 Milliliter(s) IV No Start Date 07/18/2015 Inactive potassium chloride 20 meq RxNorm: 926631 1 PO TID No Start Date 10/10/2014 Inactive sucralfate 1 gram tablet RxNorm: 479651 1/2 Tablet(s) PO BID 1 hour before meal No Start Date 10/10/2014 Inactive losartan 100 mg tablet RxNorm: 899830 1 Tablet(s) PO daily No Start Date 10/10/2014 Inactive Vitamin D3 2,000 unit tablet RxNorm: 100053 1 Tablet(s) PO daily No Start Date 08/23/2015 Inactive Calcium + D oral RxNorm: 811127 oral No Start Date 08/24/2017 Inactive Prozac 40 mg capsule RxNorm: 344512 1 Capsule(s) PO daily No Start Date 10/10/2014 Inactive timolol 0.5 % eye drops RxNorm: 758207 1 Drop(s) OPH BID No Start Date 12/28/2017 Inactive clonazepam 0.5 mg tablet RxNorm: 363129 2 Tablet(s) PO QHS No Start Date 10/16/2014 Inactive amlodipine 5 mg tablet RxNorm: 667364 1 Tablet(s) PO daily No Start Date 08/22/2015 Inactive pravastatin 80 mg tablet RxNorm: 920837 1 Tablet(s) PO QPM No Start Date 10/10/2014 Inactive Lialda 1.2 gram tablet,delayed release RxNorm: 013130 3 Tablet(s) PO daily No Start Date 07/01/2016 Inactive Alavert 10 mg disintegrating tablet RxNorm: 126905 1 Tablet(s) PO daily as needed No [...] 31.9 pg 02/23/2018 Cbc With Differential Ord2 Ro[place]% 8.8 % 02/23/2018 Cbc With Differential Ord2 [...] 1.24 K/ul 02/23/2018 Cbc With Differential Ord2 [place] ABS# 0.5 K/ul 02/23/2018 Cbc With Differential Ord2 Eos ABS# 0.1 K/ul 02/23/2018 Cbc With Differential Ord2 Baso ABS# 0.0 K/ul 02/23/2018 Comp Metabolic Nhy856 NA 136 mEq/L 02/23/2018 Comp Metabolic Fdc360 K 4.0 mEq/L 02/23/2018 Comp Metabolic Kik524 CL 105 mEq/L 02/23/2018 Comp Metabolic Rxd168 CO2 20.0 mEq/L 02/23/2018 Comp Metabolic Nws432 ANION GAP 15 02/23/2018 Comp Metabolic Okt088 GLUCOSE 129 mg/dL 02/23/2018 Comp Metabolic Uzf290 Creat 0.9 mg/dL 02/23/2018 Comp Metabolic Zao881 eGFR 66 ml/min/1.73m2 02/23/2018 Comp Metabolic Ung598 BUN 11 mg/dL 02/23/2018 Comp Metabolic Zmf469 B/C Ratio 12.2 Ratio 02/23/2018 Comp Metabolic Rxd710 CALCIUM 8.6 mg/dL 02/23/2018 Comp Metabolic Mjx676 ALK PHOS 43 U/L 02/23/2018 Comp Metabolic Gqc500 AST(SGOT) 33 U/L 02/23/2018 Comp Metabolic Kno681 ALT(SGPT) 24 U/L 02/23/2018 Comp Metabolic Mmb067 BILI T 0.5 mg/dL 02/23/2018 Comp Metabolic Sqc626 ALBUMIN 4.2 g/dL 02/23/2018 Comp Metabolic Fyv652 TPRO 6.8 g/dL 02/23/2018 Comp Metabolic Cpw890 GLOB 2.6 g/dL 02/23/2018 Comp Metabolic Yne721 A/G Ratio 1.6 Ratio 02/23/2018 Comp Metabolic Oea777 Osmo 273 mOsmo 02/23/2018 Vitamin D 25 Oh Bvc4384 VITAMIN D, 25 HYDROXY 29.25 ng/mL Sed Rate Ord21 ESR 8 mm/hr 02/23/2018 Hepatic Crw960 ALBUMIN 4.3 g/dL 01/05/2018 Hepatic Mnb181 TPRO 6.7 g/dL 01/05/2018 Hepatic Bdt439 GLOB 2.5 g/dL 01/05/2018 Hepatic Bmz710 A/G Ratio 1.7 Ratio 01/05/2018 Hepatic Enj167 ALK PHOS 53 U/L 01/05/2018 Hepatic Agm858 ALT(SGPT) 31 U/L 01/05/2018 Hepatic Hsl324 AST(SGOT) 44 U/L 01/05/2018 Hepatic Slm261 BILI T 0.4 mg/dL 01/05/2018 Hepatic Mrg350 BILI D 0.1 mg/dL 01/05/2018 Hepatic Glx560 BILI I 0.3 mg/dL 01/05/2018 Comp Metabolic Ylp798 NA 133 mEq/L 10/20/2017 Comp Metabolic Vrg946 K 4.1 mEq/L 10/20/2017 Comp Metabolic Vrf215 CL 103 mEq/L 10/20/2017 Comp Metabolic Dyt930 CO2 23.0 mEq/L 10/20/2017 Comp Metabolic Lyz002 ANION GAP 11 10/20/2017 Comp Metabolic Pgx522 GLUCOSE 118 mg/dL 10/20/2017 Comp Metabolic Xbr234 Creat 0.9 mg/dL 10/20/2017 Comp Metabolic Kcm431 eGFR 64 ml/min/1.73m2 10/20/2017 Comp Metabolic Xqf507 BUN 14 mg/dL 10/20/2017 Comp Metabolic Jwo999 B/C Ratio 15.2 Ratio 10/20/2017 Comp Metabolic Xlt714 CALCIUM 8.8 mg/dL 10/20/2017 Comp Metabolic Zpm898 ALK PHOS 43 U/L 10/20/2017 Comp Metabolic Gzw078 AST(SGOT) 31 U/L 10/20/2017 Comp Metabolic Egc567 ALT(SGPT) 25 U/L 10/20/2017 Comp Metabolic Dmq503 BILI T 0.4 mg/dL 10/20/2017 Comp Metabolic Zvt526 ALBUMIN 4.1 g/dL 10/20/2017 Comp Metabolic Jxu274 TPRO 6.6 g/dL 10/20/2017 Comp Metabolic Gqq543 GLOB 2.5 g/dL 10/20/2017 Comp Metabolic Aka885 A/G Ratio 1.6 Ratio 10/20/2017 Comp Metabolic Kwt386 Osmo 268 mOsmo 10/20/2017 Vitamin D 25 Oh Uzv0484 VITAMIN D, 25 HYDROXY 42.65 ng/mL C-Reactive [...] 32.0 pg 10/20/2017 Cbc With Differential Ord2 [place]% 8.6 % 10/20/2017 Cbc With Differential Ord2 [...] 1.16 K/ul 10/20/2017 Cbc With Differential Ord2 [place] ABS# 0.5 K/ul 10/20/2017 Cbc With Differential [...] 32.2 pg 07/21/2017 Cbc With Differential Ord2 [place]% 9.7 % 07/21/2017 Cbc With Differential Ord2 [...] 1.20 K/ul 07/21/2017 Cbc With Differential Ord2 [place] ABS# 0.6 K/ul 07/21/2017 Cbc With Differential Ord2 Eos ABS# 0.0 K/ul 07/21/2017 Cbc With Differential Ord2 Baso ABS# 0.0 K/ul 07/21/2017 Sed Rate Ord21 ESR 14 mm/hr 07/21/2017 Comp Metabolic Sug455 NA 135 mEq/L 07/21/2017 Comp Metabolic Pmc637 K 4.5 mEq/L 07/21/2017 Comp Metabolic Dhv689 CL 101 mEq/L 07/21/2017 Comp Metabolic Awv028 CO2 26.0 mEq/L 07/21/2017 Comp Metabolic Ute742 ANION GAP 13 07/21/2017 Comp Metabolic Uoi704 GLUCOSE 97 mg/dL 07/21/2017 Comp Metabolic Ksz551 Creat 0.9 mg/dL 07/21/2017 Comp Metabolic Wql043 eGFR 66 ml/min/1.73m2 07/21/2017 Comp Metabolic Rbf249 BUN 13 mg/dL 07/21/2017 Comp Metabolic Erv974 B/C Ratio 14.4 Ratio 07/21/2017 Comp Metabolic Cvn492 CALCIUM 9.2 mg/dL 07/21/2017 Comp Metabolic Dsm600 ALK PHOS 46 U/L 07/21/2017 Comp Metabolic Wai726 AST(SGOT) 31 U/L 07/21/2017 Comp Metabolic Jsg554 ALT(SGPT) 19 U/L 07/21/2017 Comp Metabolic Inu998 BILI T 0.5 mg/dL 07/21/2017 Comp Metabolic Qxl702 ALBUMIN 4.5 g/dL 07/21/2017 Comp Metabolic Xov888 TPRO 7.2 g/dL 07/21/2017 Comp Metabolic Aqf510 GLOB 2.7 g/dL 07/21/2017 Comp Metabolic Mut229 A/G Ratio 1.7 Ratio 07/21/2017 Comp Metabolic Rdj480 Osmo 270 mOsmo 07/21/2017 Vitamin D 25 Oh Ldt8200 VITAMIN D, 25 HYDROXY 31.39 ng/mL C-Reactive [...] 31.9 pg 04/14/2017 Cbc With Differential Ord2 [place]% 9.1 % 04/14/2017 Cbc With Differential Ord2 [...] 1.47 K/ul 04/14/2017 Cbc With Differential Ord2 [place] ABS# 0.7 K/ul 04/14/2017 Cbc With Differential Ord2 Eos ABS# 0.0 K/ul 04/14/2017 Cbc With Differential Ord2 Baso ABS# 0.0 K/ul 04/14/2017 Comp Metabolic Qxd579 NA 136 mEq/L 04/14/2017 Comp Metabolic Yce968 K 4.4 mEq/L 04/14/2017 Comp Metabolic Nbd993 CL 104 mEq/L 04/14/2017 Comp Metabolic Suh837 CO2 21.0 mEq/L 04/14/2017 Comp Metabolic Gft227 ANION GAP 15 04/14/2017 Comp Metabolic Wpq428 GLUCOSE 112 mg/dL 04/14/2017 Comp Metabolic Fck354 Creat 1.1 mg/dL 04/14/2017 Comp Metabolic Spf944 eGFR 51 ml/min/1.73m2 04/14/2017 Comp Metabolic Cbn263 BUN 16 mg/dL 04/14/2017 Comp Metabolic Efk075 B/C Ratio 14.3 Ratio 04/14/2017 Comp Metabolic Uzr159 CALCIUM 8.9 mg/dL 04/14/2017 Comp Metabolic Wck702 ALK PHOS 39 U/L 04/14/2017 Comp Metabolic Obr691 AST(SGOT) 24 U/L 04/14/2017 Comp Metabolic Cmk539 ALT(SGPT) 18 U/L 04/14/2017 Comp Metabolic Ivi944 BILI T 0.5 mg/dL 04/14/2017 Comp Metabolic Mle913 ALBUMIN 4.3 g/dL 04/14/2017 Comp Metabolic Cdx745 TPRO 6.8 g/dL 04/14/2017 Comp Metabolic Xdv076 GLOB 2.5 g/dL 04/14/2017 Comp Metabolic Wbn637 A/G Ratio 1.7 Ratio 04/14/2017 Comp Metabolic Rwf060 Osmo 274 mOsmo 04/14/2017 Vitamin D 25 Oh Dkm7002 VITAMIN D, 25 HYDROXY 29.88 ng/mL Sed Rate Ord21 ESR 15 mm/hr 04/14/2017 C-Reactive Protein Qnt Crqnt CRP 0.1 mg/dl 04/14/2017 C-Reactive Protein Qnt Crqnt CRP 0.1 mg/dl 02/09/2017 Comp Metabolic Qrw446 NA 135 mEq/L 02/09/2017 Comp Metabolic Ttj903 K 4.4 mEq/L 02/09/2017 Comp Metabolic Gok113 CL 102 mEq/L 02/09/2017 Comp Metabolic Tvc121 CO2 23.0 mEq/L 02/09/2017 Comp Metabolic Tkr261 ANION GAP 14 02/09/2017 Comp Metabolic Rcu750 GLUCOSE 98 mg/dL 02/09/2017 Comp Metabolic Exj039 Creat 0.9 mg/dL 02/09/2017 Comp Metabolic Ulx673 eGFR 65 ml/min/1.73m2 02/09/2017 Comp Metabolic Snr613 BUN 18 mg/dL 02/09/2017 Comp Metabolic Rwa012 B/C Ratio 19.8 Ratio 02/09/2017 Comp Metabolic Nfj174 CALCIUM 9.2 mg/dL 02/09/2017 Comp Metabolic Mgp329 ALK PHOS 42 U/L 02/09/2017 Comp Metabolic Rkc332 AST(SGOT) 24 U/L 02/09/2017 Comp Metabolic Mrg594 ALT(SGPT) 16 U/L 02/09/2017 Comp Metabolic Lrf473 BILI T 0.4 mg/dL 02/09/2017 Comp Metabolic Pzl207 ALBUMIN 4.4 g/dL 02/09/2017 Comp Metabolic Bcw715 TPRO 7.0 g/dL 02/09/2017 Comp Metabolic Zvi756 GLOB 2.6 g/dL 02/09/2017 Comp Metabolic Oqp321 A/G Ratio 1.7 Ratio 02/09/2017 Comp Metabolic Vjr720 Osmo 272 mOsmo 02/09/2017 Cbc With Differential [...] 32.5 pg 02/09/2017 Cbc With Differential Ord2 [place]% 8.7 % 02/09/2017 Cbc With Differential Ord2 [...] 1.06 K/ul 02/09/2017 Cbc With Differential Ord2 [place] ABS# 0.6 K/ul 02/09/2017 Cbc With Differential Ord2 Eos ABS# 0.0 K/ul 02/09/2017 Cbc With Differential Ord2 Baso ABS# 0.0 K/ul 02/09/2017 Vitamin D 25 Oh Grw7659 VITAMIN D, 25 HYDROXY 36.00 ng/mL Sed Rate Ord21 ESR 16 mm/hr 02/09/2017 %Hba1C Loq722 % HbA1c 51452-0 6.1 % 05/20/2016 %Hba1C Cso147 Gluc Ave 128 mg/dL 05/20/2016 Lipid Ord30 CHOL 212 mg/dL 05/20/2016 Lipid Ord30 HDL 52.0 mg/dl 05/20/2016 Lipid Ord30 TRIG 149 mg/dL 05/20/2016 Lipid Ord30 LDL 130 mg/dL 05/20/2016 Lipid Ord30 C/HDL 4.1 Ratio 05/20/2016 Comp Metabolic Mmp542 NA 134 mEq/L 04/21/2016 Comp Metabolic Zzx139 K 5.0 mEq/L 04/21/2016 Comp Metabolic Asi956 CL 103 mEq/L 04/21/2016 Comp Metabolic Yuh956 CO2 24.0 mEq/L 04/21/2016 Comp Metabolic Wpn741 ANION GAP 12 04/21/2016 Comp Metabolic Fll718 GLUCOSE 122 mg/dL 04/21/2016 Comp Metabolic Dmf936 Creat 1.1 mg/dL 04/21/2016 Comp Metabolic Yhr502 eGFR 52 ml/min/1.73m2 04/21/2016 Comp Metabolic Sfs023 BUN 24 mg/dL 04/21/2016 Comp Metabolic Jly841 B/C Ratio 21.6 Ratio 04/21/2016 Comp Metabolic Arf823 CALCIUM 9.7 mg/dL 04/21/2016 Comp Metabolic Umi991 ALK PHOS 51 U/L 04/21/2016 Comp Metabolic Sjs278 AST(SGOT) 23 U/L 04/21/2016 Comp Metabolic Ftb765 ALT(SGPT) 17 U/L 04/21/2016 Comp Metabolic Num716 BILI T 0.5 mg/dL 04/21/2016 Comp Metabolic Xuq716 ALBUMIN 4.4 g/dL 04/21/2016 Comp Metabolic Dzy389 TPRO 7.3 g/dL 04/21/2016 Comp Metabolic Qqr776 GLOB 2.9 g/dL 04/21/2016 Comp Metabolic Yvq032 A/G Ratio 1.5 Ratio 04/21/2016 Comp Metabolic Ivj210 Osmo 274 mOsmo 04/21/2016 Cbc With Differential [...] 32.0 pg 04/21/2016 Cbc With Differential Ord2 [place]% 9.1 % 04/21/2016 Cbc With Differential Ord2 [...] 1.39 K/ul 04/21/2016 Cbc With Differential Ord2 [place] ABS# 0.6 K/ul 04/21/2016 Cbc With Differential Ord2 Eos ABS# 0.1 K/ul 04/21/2016 Cbc With Differential Ord2 Baso ABS# 0.0 K/ul 04/21/2016 Bili D Ord93 BILI D 0.1 mg/dL 04/21/2016 Bili D Ord93 BILI I 0.4 mg/dL 04/21/2016 Vitamin D 25 Oh Fuv4780 VITAMIN D, 25 HYDROXY 51.65 ng/mL Sed Rate Ord21 ESR 26 mm/hr 04/21/2016 C-Reactive Protein Qnt Crqnt CRP 0.1 mg/dl 04/21/2016 Comp Metabolic Hbq767 NA 133 mEq/L 03/18/2016 Comp Metabolic Rns909 K 4.9 mEq/L 03/18/2016 Comp Metabolic Egt414 CL 102 mEq/L 03/18/2016 Comp Metabolic Kuq685 CO2 25.0 mEq/L 03/18/2016 Comp Metabolic Wse095 ANION GAP 11 03/18/2016 Comp Metabolic Aaz553 GLUCOSE 114 mg/dL 03/18/2016 Comp Metabolic Kee353 Creat 1.1 mg/dL 03/18/2016 Comp Metabolic Nnd327 eGFR 54 ml/min/1.73m2 03/18/2016 Comp Metabolic Hlm986 BUN 23 mg/dL 03/18/2016 Comp Metabolic Hzi197 B/C Ratio 21.3 Ratio 03/18/2016 Comp Metabolic Ili737 CALCIUM 9.7 mg/dL 03/18/2016 Comp Metabolic Wir857 ALK PHOS 54 U/L 03/18/2016 Comp Metabolic Nkc765 AST(SGOT) 21 U/L 03/18/2016 Comp Metabolic Xwi456 ALT(SGPT) 15 U/L 03/18/2016 Comp Metabolic Lel494 BILI T 0.4 mg/dL 03/18/2016 Comp Metabolic Iqg095 ALBUMIN 4.4 g/dL 03/18/2016 Comp Metabolic Ldk314 TPRO 7.4 g/dL 03/18/2016 Comp Metabolic Yhu711 GLOB 3.0 g/dL 03/18/2016 Comp Metabolic Yrk726 A/G Ratio 1.5 Ratio 03/18/2016 Comp Metabolic Sze861 Osmo 271 mOsmo 03/18/2016 Vitamin D 25 Oh [id number] VITAMIN D, 25 HYDROXY 46.10 ng/mL Sed Rate Ord21 ESR 26 mm/hr 02/13/2016 Comp Metabolic Vky198 NA 133 mEq/L 02/13/2016 Comp Metabolic Hob329 K 4.8 mEq/L 02/13/2016 Comp Metabolic Njb886 CL 104 mEq/L 02/13/2016 Comp Metabolic Wzd516 CO2 23.0 mEq/L 02/13/2016 Comp Metabolic Cff354 ANION GAP 11 02/13/2016 Comp Metabolic Nav674 GLUCOSE 104 mg/dL 02/13/2016 Comp Metabolic Lls891 Creat 1.0 mg/dL 02/13/2016 Comp Metabolic Opq177 eGFR 56 ml/min/1.73m2 02/13/2016 Comp Metabolic Ujm089 BUN 25 mg/dL 02/13/2016 Comp Metabolic Zqc606 B/C Ratio 24.0 Ratio 02/13/2016 Comp Metabolic Ype454 CALCIUM 9.1 mg/dL 02/13/2016 Comp Metabolic Ttb208 ALK PHOS 43 U/L 02/13/2016 Comp Metabolic Sqf223 AST(SGOT) 21 U/L 02/13/2016 Comp Metabolic Qxn274 ALT(SGPT) 17 U/L 02/13/2016 Comp Metabolic Aks692 BILI T 0.4 mg/dL 02/13/2016 Comp Metabolic Eqq637 ALBUMIN 4.3 g/dL 02/13/2016 Comp Metabolic Awd827 TPRO 7.1 g/dL 02/13/2016 Comp Metabolic Vpb632 GLOB 2.9 g/dL 02/13/2016 Comp Metabolic Edb060 A/G Ratio 1.5 Ratio 02/13/2016 Comp Metabolic Eml826 Osmo 271 mOsmo 02/13/2016 C-Reactive Protein Qnt [...] 31.6 pg 02/13/2016 Cbc With Differential Ord2 Rolette% 9.7 % 02/13/2016 Cbc With Differential Ord2 [...] 1.17 K/ul 02/13/2016 Cbc With Differential Ord2 Rolette ABS# 0.6 K/ul 02/13/2016 Cbc With Differential Ord2 Eos ABS# 0.1 K/ul 02/13/2016 Cbc With Differential Ord2 Baso ABS# 0.0 K/ul 02/13/2016 Comp Metabolic Ecf159 NA 132 mEq/L 10/08/2015 Comp Metabolic Ody983 K 4.7 mEq/L 10/08/2015 Comp Metabolic Ktk826 CL 101 mEq/L 10/08/2015 Comp Metabolic Jai720 CO2 24.0 mEq/L 10/08/2015 Comp Metabolic Ykg502 ANION GAP 12 10/08/2015 Comp Metabolic Law159 GLUCOSE 85 mg/dL 10/08/2015 Comp Metabolic Wnm114 Creat 0.9 mg/dL 10/08/2015 Comp Metabolic Kxm067 eGFR 66 ml/min/1.73m2 10/08/2015 Comp Metabolic Viz734 BUN 29 mg/dL 10/08/2015 Comp Metabolic Olp335 B/C Ratio 32.2 Ratio 10/08/2015 Comp Metabolic Hfg036 CALCIUM 9.1 mg/dL 10/08/2015 Comp Metabolic Huz551 ALK PHOS 40 U/L 10/08/2015 Comp Metabolic Etd241 AST(SGOT) 18 U/L 10/08/2015 Comp Metabolic Nnp478 ALT(SGPT) 14 U/L 10/08/2015 Comp Metabolic Aau045 BILI T 0.3 mg/dL 10/08/2015 Comp Metabolic Nzh472 ALBUMIN 4.1 g/dL 10/08/2015 Comp Metabolic Uck068 TPRO 6.8 g/dL 10/08/2015 Comp Metabolic Znm815 GLOB 2.7 g/dL 10/08/2015 Comp Metabolic Ytk217 A/G Ratio 1.5 Ratio 10/08/2015 Comp Metabolic Zfp793 Osmo 270 mOsmo 10/08/2015 C-Reactive Protein Qnt [...] 96.0 fl 10/08/2015 Cbc With Differential Ord2 Rolette% 10.5 % 10/08/2015 Cbc With Differential Ord2 [...] 1.24 K/ul 10/08/2015 Cbc With Differential Ord2 Rolette ABS# 0.8 K/ul 10/08/2015 Cbc With Differential Ord2 Eos ABS# 0.0 K/ul 10/08/2015 Cbc With Differential Ord2 Baso ABS# 0.0 K/ul 10/08/2015 Sed Rate Ord21 ESR 20 mm/hr 10/08/2015 Vitamin D 25 Oh Swr9522 VITAMIN D, 25 HYDROXY 54.28 ng/mL Tsh Ord6 hTSH II 1.72 uIU/mL 09/26/2015 Free T4 Ogz856 FREE T4 0.80 ng/dL 09/26/2015 Comp Metabolic Ykp324 NA 133 mEq/L 08/06/2015 Comp Metabolic Hbo015 K 4.6 mEq/L 08/06/2015 Comp Metabolic Zdp569 CL 102 mEq/L 08/06/2015 Comp Metabolic Hcg390 CO2 24.0 mEq/L 08/06/2015 Comp Metabolic Jgy357 ANION GAP 12 08/06/2015 Comp Metabolic Zsk116 GLUCOSE 105 mg/dL 08/06/2015 Comp Metabolic Udh224 Creat 1.0 mg/dL 08/06/2015 Comp Metabolic Clf084 eGFR 60 ml/min/1.73m2 08/06/2015 Comp Metabolic Lkb548 BUN 28 mg/dL 08/06/2015 Comp Metabolic Rwr086 B/C Ratio 28.6 Ratio 08/06/2015 Comp Metabolic Yti938 CALCIUM 9.2 mg/dL 08/06/2015 Comp Metabolic Vpn477 ALK PHOS 42 U/L 08/06/2015 Comp Metabolic Vwt607 AST(SGOT) 20 U/L 08/06/2015 Comp Metabolic Jcj327 ALT(SGPT) 16 U/L 08/06/2015 Comp Metabolic Mku519 BILI T 0.3 mg/dL 08/06/2015 Comp Metabolic Blr288 ALBUMIN 4.3 g/dL 08/06/2015 Comp Metabolic Qsh473 TPRO 6.9 g/dL 08/06/2015 Comp Metabolic Fst242 GLOB 2.7 g/dL 08/06/2015 Comp Metabolic Buy902 A/G Ratio 1.6 Ratio 08/06/2015 Comp Metabolic Zfw178 Osmo 272 mOsmo 08/06/2015 C-Reactive Protein Qnt Crqnt CRP 0.00 mg/dl 08/06/2015 Vitamin D 25 Oh Cmk6294 VITAMIN D, 25 HYDROXY 36.25 ng/mL Cbc [...] 20.4 % 08/06/2015 Cbc With Differential Ord2 Rolette% 8.9 % 08/06/2015 Cbc With Differential Ord2 [...] 1.31 K/ul 08/06/2015 Cbc With Differential Ord2 [place] ABS# 0.6 K/ul 08/06/2015 Cbc With Differential [...] Ord93 BILI I 0.4 mg/dL 04/04/2015 %Hba1C Jqf419 % HbA1c 15837-3 5.7 % 04/04/2015 %Hba1C Zxr365 Gluc Ave 117 mg/dL 04/04/2015 Vitamin D 25 Oh Cvj0956 VITAMIN D, 25 HYDROXY 47.62 ng/mL C-Reactive [...] Ord2 RDW 13.0 % 04/04/2015 Comp Metabolic Jib941 NA 132 mEq/L 04/04/2015 Comp Metabolic Orx531 K 4.6 mEq/L 04/04/2015 Comp Metabolic Ubz659 CL 100 mEq/L 04/04/2015 Comp Metabolic Xdf615 CO2 22.0 mEq/L 04/04/2015 Comp Metabolic Xhu113 ANION GAP 15 04/04/2015 Comp Metabolic Zhi261 GLUCOSE 118 mg/dL 04/04/2015 Comp Metabolic Mwa956 Creat 1.0 mg/dL 04/04/2015 Comp Metabolic Asi311 eGFR 60 ml/min/1.73m2 04/04/2015 Comp Metabolic Ymm986 BUN 18 mg/dL 04/04/2015 Comp Metabolic Jto380 B/C Ratio 18.4 Ratio 04/04/2015 Comp Metabolic Ztw095 CALCIUM 9.6 mg/dL 04/04/2015 Comp Metabolic Pin631 ALK PHOS 63 U/L 04/04/2015 Comp Metabolic Uho535 AST(SGOT) 17 U/L 04/04/2015 Comp Metabolic Fvu196 ALT(SGPT) 13 U/L 04/04/2015 Comp Metabolic Los853 BILI T 0.5 mg/dL 04/04/2015 Comp Metabolic Mib731 ALBUMIN 4.6 g/dL 04/04/2015 Comp Metabolic Chj475 TPRO 7.4 g/dL 04/04/2015 Comp Metabolic Lwh926 GLOB 2.8 g/dL 04/04/2015 Comp Metabolic Bxr431 A/G Ratio 1.6 Ratio 04/04/2015 Comp Metabolic Ltk579 Osmo 268 mOsmo 04/04/2015 Sed Rate Ord21 ESR 16 mm/hr 04/04/2015 Lipid Ord30 CHOL 214 mg/dL 04/04/2015 Lipid Ord30 HDL 61.0 mg/dl 04/04/2015 Lipid Ord30 TRIG 155 mg/dL 04/04/2015 Lipid Ord30 LDL 122 mg/dL 04/04/2015 Lipid Ord30 C/HDL 3.5 Ratio 04/04/2015 %Hba1C Agx334 % HbA1c 83608-6 5.9 % 11/28/2014 %Hba1C Aps835 Gluc Ave 123 mg/dL 11/28/2014 Cbc With [...] Rate Ord21 ESR 19 mm/hr 11/27/2014 Hepatic Gjz104 ALBUMIN 4.4 g/dL 11/27/2014 Hepatic Gul421 TPRO 7.0 g/dL 11/27/2014 Hepatic Qby004 GLOB 2.6 g/dL 11/27/2014 Hepatic Toi081 A/G Ratio 1.7 Ratio 11/27/2014 Hepatic Lcm320 ALK PHOS 63 U/L 11/27/2014 Hepatic Wbm348 ALT(SGPT) 14 U/L 11/27/2014 Hepatic Wtp646 AST(SGOT) 19 U/L 11/27/2014 Hepatic Sfa665 BILI T 0.4 mg/dL 11/27/2014 Hepatic Zim101 BILI D 0.1 mg/dL 11/27/2014 Hepatic Jvx528 BILI I 0.3 mg/dL 11/27/2014 Lipid Ord30 [...] Formatting Model/CDA Sections, Assigned to/Tabitha Velasquez CPT-4: 85017Aoyfazw 12/29/2017 PPPS, SUBSEQ VISIT CPT -4: G0439 09/17/2017 PPPS, SUBSEQ VISIT CPT -4: G0439 08/21/2016 PNEUMOCOCCAL VACC [address]: 29389763 CPT-4: 01861 02/20/2016 ADMIN PNEUMOCOCCAL VACCINE SNOMED CT: 87679868 CPT-4: G0009 02/20/2016 ADMIN INFLUENZA VIRUS VAC CPT-4: G0008 01/23/2016 FLU VACC 4 KATIE 3 YRS PLUS IM SNOMED CT: 21598883 CPT-4: 36201 01/23/2016 PPPS, SUBSEQ VISIT CPT -4: G0439 07/19/2015 Vital Signs Date Vital 01/12/2018 Blood Pressure 1: 124/70 Code : 8480-6 BMI: 30.2 Code : 65437-4 Heart Rate 1 : 59 bpm Height: 5'1" SpO2: 98% Weight: 160 lbs 12/29/2017 Blood Pressure 1: 148/82 Code : 8480-6 BMI: 30.4 Code : 90110-7 Heart Rate 1 : 60 bpm Height: 5'1" SpO2: 99% Weight: 161 lbs 09/17/2017 Height: Weight: 08/25/2017 Blood Pressure 1: 130/72 Code : 8480-6 BMI: 29.9 Code : 95327-8 Heart Rate 1 : 70 bpm Height: 5'1" SpO2: 93% Weight: 158 lbs 07/21/2017 Blood Pressure 1: 150/84 Code : 8480-6 BMI: 29.5 Code : 03979-9 Heart Rate 1 : 62 bpm Height: 5'1" SpO2: 98% Weight: 156 lbs 06/17/2017 Blood Pressure 1: 148/86 Code : 8480-6 BMI: 29.5 Code : 96083-3 Heart Rate 1 : 64 bpm Height: 5'1" SpO2: 98% Weight: 156 lbs 02/17/2017 Blood Pressure 1: 144/86 Code : 8480-6 BMI: 28.7 Code : 10770-0 Heart Rate 1 : 64 bpm Height: 5'1" SpO2: 96% Weight: 152 lbs 01/02/2017 Blood Pressure 1: 132/78 Code : 8480-6 BMI: 28.3 Code : 09699-4 Heart Rate 1 : 71 bpm Height: 5'1" SpO2: 97% Weight: 150 lbs 12/05/2016 Blood Pressure 1: 140/76 Code : 8480-6 BMI: 29.5 Code : 51439-0 Heart Rate 1 : 66 bpm Height: 5'1" SpO2: 98% Weight: 156 lbs 08/21/2016 Blood Pressure 1: 142/78 Code : 8480-6 BMI: 29.9 Code : 81529-3 Heart Rate 1 : 62 bpm Height: 5'1" SpO2: 98% Waist Measure (cm): 79 cm Weight: 158 lbs 08/19/2016 Blood Pressure 1: 142/78 Code : 8480-6 BMI: 29.9 Code : 01682-9 Heart Rate 1 : 62 bpm Height: 5'1" SpO2: 98% Weight: 158 lbs 05/20/2016 Blood Pressure 1: 152/76 Code : 8480-6 Blood Pressure 1: 144/80 Code: 8480-6 BMI: 29.3 Code: 69978-8 Heart Rate 1: 60 bpm Height: 5'1" SpO2: 95% Weight: 155 lbs 01/23/2016 Blood Pressure 1: 138/78 Code : 8480-6 BMI: 29.7 Code : 55148-3 Heart Rate 1 : 64 bpm Height: 5'1" SpO2: 98% Weight: 157 lbs 09/26/2015 Blood Pressure 1: 136/76 Code : 8480-6 BMI: 28.3 Code : 65031-7 Heart Rate 1 : 70 bpm Height: 5'1" SpO2: 98% Weight: 150 lbs 08/23/2015 Blood Pressure 1: 126/78 Code : 8480-6 BMI: 27.8 Code : 97925-1 Heart Rate 1 : 68 bpm Height: 5'1" SpO2: 97% Weight: 147 lbs 07/19/2015 Blood Pressure 1: 146/70 Code : 8480-6 BMI: 26.8 Code : 95811-6 Heart Rate 1 : 58 bpm Height: 5'1" SpO2: 96% Waist Measure (cm): 84 cm Weight: 142 lbs 04/17/2015 Blood Pressure 1: 132/62 Code : 8480-6 BMI: 25.3 Code : 65720-5 Heart Rate 1 : 98 bpm Height: 5'1" SpO2: 97% Weight: 134 lbs 03/15/2015 Blood Pressure 1: 158/72 Code : 8480-6 Blood Pressure 1: 160/70 Code: 8480-6 BMI: 25.5 Code: 98136-6 Heart Rate 1: 74 bpm Heart Rate 1: 72 bpm Height: 5'1" Height: SpO2: 98% Weight: 135 lbs Weight: 02/06/2015 Blood Pressure 1: 142/82 Code : 8480-6 BMI: 25.5 Code : 36373-7 Heart Rate 1 : 82 bpm Height: 5'1" SpO2: 96% Weight: 135 lbs 12/13/2014 Blood Pressure 1: 136/64 Code : 8480-6 BMI: 24.9 Code : 37843-0 Heart Rate 1 : 86 bpm Height: 5'1" SpO2: 95% Weight: 132 lbs 10/11/2014 Blood Pressure 1: 140/80 Code : 8480-6 BMI: 25.1 Code : 74471-4 Heart Rate 1 : 72 bpm Height: [...] M62.81] [facility] CPT-4: 11691 01/12/2018 ([id number]) 34400 EST. PATIENT, LEVEL IV Diagnosis: Essential (primary) hypertension[ICD10: I10] Diagnosis: Type 2 diabetes mellitus without complications[ICD10: E11.9] Diagnosis: Encounter for immunization[ICD10: Z23] Diagnosis: Muscle weakness (generalized)[ICD10: M62.81] [facility] CPT-4: 39772 12/29/2017 ([id number]) 66214 EST. 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 PATIENT, LEVEL IV Diagnosis: Essential (primary) hypertension[ICD10: I10] Diagnosis: Muscle weakness (generalized)[ICD10: M62.81] Diagnosis: Mixed hyperlipidemia[ICD10: E78.2] Maria Luisa Echeverria MD [facility] CPT-4: 11479 02/17/2017 ([id number]) 27135 EST. PATIENT, LEVEL III Diagnosis: Essential (primary) hypertension[ICD10: I10] Diagnosis: Muscle weakness (generalized)[ICD10: M62.81] Diamond Echeverria MD [facility] CPT-4: 10461 01/02/2017 ([id number]) 32426 EST. PATIENT, LEVEL IV Diagnosis: Muscle weakness (generalized)[ICD10: M62.81] Diagnosis: Cerebral infarction, unspecified[ICD10: I63.9] Diagnosis: Essential (primary) hypertension[ICD10: I10] Diagnosis: Gastro-esophageal reflux disease without esophagitis[ICD10: K21.9] Diagnosis: Allergic rhinitis due to pollen[ICD10: J30.1] Diamond Echeverria MD [facility] CPT-4: 73243 12/05/2016 ([id number]) 24493 EST. PATIENT, LEVEL IV Diagnosis: Essential (primary) hypertension[ICD10: I10] Diagnosis: Type 2 diabetes mellitus without complications[ICD10: E11.9] Maria Luisa Echeverria MD [facility] CPT-4: 64531 08/19/2016 19747 EST. PATIENT, LEVEL IV Diagnosis: Essential (primary) hypertension[ICD10: I10] Diagnosis: Type 2 diabetes mellitus without complications[ICD10: E11.9] Diagnosis: Mixed hyperlipidemia[ICD10: E78.2] Ashley Echeverria MD, [facility] CPT-4: 35465 05/20/2016 [id number]) 32070 EST. PATIENT, LEVEL IV Diagnosis: Type 2 diabetes mellitus without complications[ICD10: E11.9] Diagnosis: Family history of other endocrine, nutritional and metabolic diseases [ICD10: Z83.49] Diagnosis: Other fatigue[ICD10: R53.83] Diagnosis: Abnormal weight gain[ICD10: R63.5] Diagnosis: Actinic keratosis[ICD10: L57.0] Maria Luisa Echeverria MD, [facility] CPT- 4: 09019 01/23/2016 [id number]) 62004 EST. PATIENT, LEVEL IV Diagnosis: Family history of other endocrine, nutritional and metabolic diseases [ICD10: Z83.49] Diagnosis: Other fatigue[ICD10: R53.83] Diagnosis: Abnormal weight gain[ICD10: R63.5] Diagnosis: Actinic keratosis[ICD10: L57.0] Diagnosis: Type 2 diabetes mellitus without complications[ICD10: E11.9] Maria Luisa Echeverria MD, [facility] CPT-4: 50739 09/26/2015 [id number]) 22657 EST. PATIENT, LEVEL IV Diagnosis: Essential (primary) hypertension[ICD10: I10] Diagnosis: Type 2 diabetes mellitus without complications[ICD10: E11.9] Diagnosis: Other depressive episodes[ICD10: F32.8] Diagnosis: Vitamin D deficiency, unspecified[ICD10: E55.9] Maria Luisa Echeverria MD [facility] CPT-4: 63287 08/23/2015 [id number]) 76285 EST. PATIENT, LEVEL IV Diagnosis: Essential (primary) hypertension[ICD10: I10] Diagnosis: Benign paroxysmal vertigo, unspecified ear[ICD10: H81.10] Diagnosis: Type 2 diabetes mellitus without complications[ICD10: E11.9] Maria Luisa Echeverria MD, [facility] CPT-4: 27209 04/17/2015 ([id number]) 99022 EST. PATIENT, LEVEL III Diagnosis: Essential (primary) hypertension[ICD10: I10] Diagnosis: Benign paroxysmal vertigo, unspecified ear[ICD10: H81.10] Diamond Echeverria MD , [facility] CPT-4: 58877 03/15/2015 ([id number]) 15272 EST. PATIENT, LEVEL III Diagnosis: Essential (primary) hypertension[ICD10: I10] Diagnosis: Edema, unspecified[ICD10: R60.9] Diamond Echeverria MD, [facility] CPT-4: 58883 02/06/2015 [id number]) 37821 EST. PATIENT, LEVEL IV Diagnosis: ESSENTIAL HYPERTENSION[ICD9: 401.9] Diagnosis: HYPERLIPIDEMIA[ICD9: 272.4] Diagnosis: DEPRESSIVE DISORDER NEC[ICD9: 311] Diagnosis: ESOPHAGEAL REFLUX[ICD9: 530.81] Diagnosis: RESTLESS LEGS SYNDROME[ICD9: 333.94] Maria Luisa Echeverria MD, [facility] CPT-4: 15206 12/13/2014 ([id number]) OFFICE VISIT, NEW - LEVEL 4 Diagnosis: ESSENTIAL HYPERTENSION[ICD9: 401.9] Diagnosis: HYPERLIPIDEMIA[ICD9: 272.4] Diagnosis: DEPRESSIVE DISORDER NEC[ICD9: 311] Diagnosis: ESOPHAGEAL REFLUX[ICD9: 530.81] Diagnosis: RESTLESS LEGS SYNDROME[ICD9: 333.94] Maria Luisa Echeverria MD, [facility] CPT-4: 25063 10/11/2014 Plan of Care Planned Activity Notes Codes Status Date Visit Plan: Hypertension - improved control - continue with current medications, continue with no added salt diet. Pt has been encouraged to exercise daily. The pt has been advised to call the office if there are any acute concerns about change in blood pressure readings at home. 01/12/2018 Appointment: Maria Luisa Echeverria WPtel: [address] [place], [place] [phone] (15 min) Moderate 01/12/2018 Patient Education: Patient [...] 12/29/2017 Appointment: Maria Luisa Echeverria WPtel: [phone] [...] therapy. 08/25/2017 Appointment: Maria Luisa Echeverria WPtel: [facility] (15 min) [...] therapy. 07/21/2017 Appointment: Maria Luisa Echeverria WPtel: [facility] (15 min) Moderate 07/21/2017 Patient Education: Patient Medication Summary Completed 07/21/2017 Visit Plan: Right Middle Cerebral artery stroke - appt with neurology with Dr. Macario at Neurology. Gait instability - appt with [facility] physical therapy Hypertension - stable - continue with current treatment - monitor symptoms DM - diet controlled - 06/17/2017 Appointment: Maria Luisa Echeverria WPtel: [facility] (15 min) [...] medications. 02/17/2017 Appointment: Maria Luisa Echeverria WPtel: [facility]5 [facility] (15 min) Moderate 02/17/2017 Patient Education: Patient Medication Summary Completed 02/17/2017 Care Plan: Referral Order SNOMED-CT : [id number] Pending 02/17/2017 Visit Plan: Hypertension - well controlled - continue with current medications, continue with no added salt diet. Pt has been encouraged to exercise daily. The pt has been advised to call the office if there are any acute concerns about change in blood pressure readings at home. Weakness-recent stroke-strength improving-no changes 01/02/2017 Appointment: Diamond Sawyer WPtel: [phone] (30 min) Complex 01/02/2017 Patient Education: Patient Medication Summary Completed 01/02/2017 Visit Plan: Hypertension - well controlled - continue with current medications, continue with no added salt diet. Pt has been encouraged to exercise daily. The pt has been advised to call the office if there are any acute concerns about change in blood pressure readings at home. Generalized weakness-gait toufpxivshc-TBU-llavutdm PT-patient to use 4 wheeled walker GERD- dysphagia-refer for speech eval-start pepcid twice daily Allergies-chronic- restart allergy pill as directed 12/05/2016 Appointment: Diamond Sawyer WPtel: [phone] (15 min) Moderate 12/05/2016 Patient Education: Patient [...] surrogate. 08/21/2016 Appointment: [facility] Woot[facility] [facility] - Annual Wellness Visit 08/21/2016 Patient Education: [...] controlled. 08/19/2016 Appointment: Maria Luisa Echeverria [facility]Ptel[phone] [facility] (15 min) [...] medications. 05/20/2016 Appointment: Ashley Wooten WPtel: [phone] [facility] (15 min) Moderate 05/20/2016 Patient Education: Patient [...] 01/23/2016 Appointment: Maria Luisa Echeverria WPtel: [phone] [facility] (15 min) Moderate 01/23/2016 Patient Education: Patient [...] home. 09/26/2015 Appointment: Maria Luisa Echeverria WPtel: [facility] (15 min) Moderate 09/26/2015 Patient [...] Completed 08/23/2015 Appointment: Maria Luisa Echeverria WPtel: [facility] (15 min) Moderate 08/22/2015 Appointment: Maria Luisa Echeverria WPtel: [address] [place] [id number] (15 min) Moderate 08/15/2015 Visit Plan: Medicare [...] paperwork for health care surrogate. 07/19/2015 Appointment: [facility] - Annual Wellness Visit 07/19/2015 [...] week. 04/17/2015 Appointment: Maria Luisa Echeverria WPtel: [facility] (15 min) [...] 12/13/2014 Appointment: Maria Luisa Echeverria WPtel: [phone] [facility] (15 min) Moderate 12/13/2014 Patient Education: [...] medications. 10/11/2014 Appointment: Maria Luisa Echeverria WPtel: [facility] [place] Patient 10/11/2014 Appointment: Maria Luisa Echeverria WPtel: [facility] [place] (15 min) Moderate 10/11/2014 Patient Education: [...] blood pressure readings at home. Generalized weakness-gait rjotvhkgpix-WWQ-zrugdlrj PT-patient to use 4 wheeled walker UGYW-jmvzqgqpu-fjfkx for speech eval-start pepcid twice daily Dzypafhba-whfutnd-qdtxyop allergy pill as directed . Hypertension - [...]
[2018-07-02 14:51] LABS: BACTERIA,URINE NEGATIVE /HPF
--- OUTSIDE RECORDS SUMMARY | 2018-07-02 14:53 | XMS REPORT | CCD ---
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 In Name Role Phone PP Unavailable CCM Unavailable Summary Purpose Interface Exchange Insurance Providers Payer name Policy type / Coverage type Covered constitution party ID Effective Begin Date Effective End Date WPS Medicare Part B Medicare Part B [id number] 2017 Unknown [facility] Medicare Part B [id number] Unknown Family history Mother Diagnosis Age At [...] Unknown 5 10/11/[address]: 520064824 Never smoker 10/11/[address]: 293539214 Never drinks alcohol 10/11/2014 Allergies, Adverse Reactions, [...] Start Date Stop Date Status Fill Instructions Patch of [place] Ultra Test strips RxNorm: TEST 1 TIME DAILY 201804/08/2019 Active Benicar 40 mg tablet RxNorm: 101861 1 Tablet(s) PO daily 201707/23/2018 Active This replaces losartan Benicar 40 mg tablet RxNorm: 592845 1 Tablet(s) PO daily 201702/23/2018 Inactive This replaces losartan clonazepam 0.5 mg tablet RxNorm: 938365 Tablet(s) TAKE 2 TABLETS BY MOUTH AT BEDTIME NEEDED 01/20/2018 04/19/2018 Active Coreg 3.125 mg tablet RxNorm: 488079 1/2 Tablet(s) PO BID 201704/27/2018 Active Mirapex 0.5 mg tablet RxNorm: 302321 TAKE ONE TABLET BY MOUTH EVERY NIGHT AT BEDTIME 12/21/2017 05/19/2018 Active Plavix 75 mg tablet RxNorm: 725148 TAKE ONE TABLET BY MOUTH DAILY 12/11/2017 03/05/2019 Active folic acid 1 mg tablet RxNorm: 059396 TAKE ONE TABLET BY MOUTH DAILY 12/11/2017 12/05/2018 Active Aspirin Low Dose 81 mg tablet,delayed release RxNorm: 624165 TAKE ONE TABLET BY MOUTH DAILY 11/24/2017 12/28/2017 Inactive Request already responded to by other means (e.g. phone or fax) Aspirin Low Dose 81 mg tablet,delayed release RxNorm: 756160 1 Tablet(s) PO daily 11/18/2017 11/17/2017 Inactive Aspirin Low Dose 81 mg tablet,delayed release RxNorm: 775774 1 Tablet(s) PO daily 11/18/2017 11/23/2017 Inactive clonazepam 0.5 mg tablet RxNorm: 560480 Tablet(s) TAKE 2 TABLETS BY MOUTH AT BEDTIME NEEDED 10/23/2017 01/19/2018 Inactive Lomotil 2.5 mg-0.025 mg tablet RxNorm: 2444670 1 Tablet(s) PO daily as needed 09/28/2017 03/26/2018 Inactive pravastatin 80 mg tablet RxNorm: 466423 TAKE ONE TABLET BY MOUTH EVERY EVENING 08/19/2017 11/11/2018 Active clonazepam 0.5 mg tablet RxNorm: 480055 Tablet(s) TAKE 2 TABLETS BY MOUTH AT BEDTIME NEEDED 07/24/2017 10/20/2017 Inactive Mirapex 0.5 mg tablet RxNorm: 729123 TAKE ONE TABLET BY MOUTH EVERY NIGHT AT BEDTIME 07/23/2017 12/19/2017 Inactive Vitamin D2 50,000 unit capsule RxNorm: 731556 1 Capsule(s) PO QW 07/22/2017 07/21/2017 Inactive Vitamin D2 50,000 unit capsule RxNorm: 042493 1 Capsule(s) PO QW 07/22/2017 10/19/2017 Inactive amlodipine 5 mg tablet RxNorm: 499162 1 Tablet(s) PO daily 01/201812/28/2017 Inactive Refill not appropriate Prozac 40 mg capsule RxNorm: 059007 TAKE ONE CAPSULE BY MOUTH DAILY 06/24/2017 06/18/2018 Active Plavix 75 mg tablet RxNorm: 276071 TAKE ONE TABLET BY MOUTH DAILY 06/18/2017 12/10/2017 Inactive Lomotil 2.5 mg-0.025 mg tablet RxNorm: 2970243 1 Tablet(s) PO daily as needed 06/04/2017 11/17/2017 Inactive losartan 100 mg tablet RxNorm: 742173 TAKE ONE TABLET BY MOUTH DAILY 05/11/2017 02/23/2018 Inactive OneTouch Ultra Test strips RxNorm: TEST 1 TIME DAILY 201704/13/2018 Inactive clonazepam 0.5 mg tablet RxNorm: 344311 Tablet(s) TAKE 2 TABLETS BY MOUTH AT BEDTIME NEEDED 04/14/2017 11/17/2017 Inactive Lomotil 2.5 mg-0.025 mg tablet RxNorm: 7102771 1 Tablet(s) PO daily as needed 03/17/2017 06/03/2017 Inactive Mirapex 0.5 mg tablet RxNorm: 889879 TAKE ONE TABLET BY MOUTH EVERY NIGHT AT BEDTIME 01/19/2017 07/17/2017 Inactive clonazepam 0.5 mg tablet RxNorm: 766845 Tablet(s) TAKE 2 TABLETS BY MOUTH AT BEDTIME NEEDED 01/12/2017 04/09/2017 Inactive tramadol 50 mg tablet RxNorm: 288019 1-2 Tablet(s) PO Q6 PRN pain 12/31/2016 08/24/2017 Inactive folic acid 1 mg tablet RxNorm: 985618 TAKE ONE TABLET BY MOUTH DAILY 12/24/2016 12/10/2017 Inactive tramadol 50 mg tablet RxNorm: 625409 1-2 Tablet(s) PO Q6 PRN pain 12/12/2016 12/16/2016 Inactive tramadol 50 mg tablet RxNorm: 339804 1-2 Tablet(s) PO Q6 PRN pain 12/12/2016 12/11/2016 Inactive clonazepam 0.5 mg tablet RxNorm: 965471 Tablet(s) TAKE 2 TABLETS BY MOUTH AT BEDTIME NEEDED 12/09/2016 01/11/2017 Inactive pravastatin 80 mg tablet RxNorm: 378106 TAKE ONE TABLET BY MOUTH EVERY EVENING 11/11/2016 08/07/2017 Inactive Mirapex 0.5 mg tablet RxNorm: 550656 TAKE ONE TABLET BY MOUTH EVERY NIGHT AT BEDTIME 10/29/2016 01/18/2017 Inactive Prozac 40 mg capsule RxNorm: 262424 TAKE ONE CAPSULE BY MOUTH DAILY 10/29/2016 06/23/2017 Inactive spironolactone 25 mg tablet RxNorm: 172817 TAKE ONE TABLET BY MOUTH DAILY 10/29/2016 12/04/2016 Inactive clonazepam 0.5 mg tablet RxNorm: 19740520 Tablet(s) TAKE 2 TABLETS BY MOUTH AT BEDTIME NEEDED 09/24/2016 11/22/2016 Inactive Lomotil 2.5 mg-0.025 mg tablet RxNorm: 9901219 1 Tablet(s) PO daily as needed 07/30/2016 01/23/2017 Inactive sucralfate 1 gram tablet RxNorm: 282232 TAKE ONE-HALF TABLET BY MOUTH TWO TIMES A DAY ONE HOUR BEFORE MEALS 07/28/201608/24 Inactive losartan 100 mg tablet RxNorm: 533069 TAKE ONE TABLET BY MOUTH DAILY 07/28/2016 01/23/2017 Inactive Lialda 1.2 gram tablet,delayed release RxNorm: 567578 3 Tablet(s) PO daily 07/02/2016 08/24/2017 Inactive Mirapex 0.5 mg tablet RxNorm: 483670 TAKE ONE TABLET BY MOUTH EVERY NIGHT AT BEDTIME 06/27/2016 10/24/2016 Inactive clonazepam 0.5 mg tablet RxNorm: 699293 Tablet(s) TAKE 2 TABLETS BY MOUTH AT BEDTIME NEEDED 06/27/2016 01/11/2017 Inactive clonazepam 0.5 mg tablet RxNorm: 19740520 Tablet(s) TAKE 2 TABLETS BY MOUTH AT BEDTIME NEEDED 04/29/2016 06/25/2016 Inactive folic acid 1 mg tablet RxNorm: 951090 TAKE ONE TABLET BY MOUTH DAILY 02/28/2016 11/23/2016 Inactive clonazepam 0.5 mg tablet RxNorm: 19740520 Tablet(s) TAKE 2 TABLETS BY MOUTH AT BEDTIME NEEDED 02/26/2016 01/11/2017 Inactive OneTouch Ultra Test strips RxNorm: TEST ONCE DAILY 02/25/2016 08/22/2016 Inactive sucralfate 1 gram tablet RxNorm: 476342 TAKE ONE-HALF TABLET BY MOUTH TWO TIMES A DAY ONE HOUR BEFORE MEALS 01/28/201607/25 Inactive Mirapex 0.5 mg tablet RxNorm: 677914 TAKE ONE TABLET BY MOUTH EVERY NIGHT AT BEDTIME 01/28/2016 06/25/2016 Inactive spironolactone 25 mg tablet RxNorm: 493072 TAKE ONE TABLET BY MOUTH DAILY 01/28/2016 10/23/2016 Inactive Lomotil 2.5 mg-0.025 mg tablet RxNorm: 7575187 1 Tablet(s) PO daily as needed 12/05/2015 01/11/2017 Inactive Klor-Con M20 mEq tablet,extended release RxNorm: 503373 TAKE ONE TABLET BY MOUTH THREE TIMES A DAY 12/05/2015 08/24/2017 Inactive losartan 100 mg tablet RxNorm: 783508 TAKE ONE TABLET BY MOUTH DAILY 11/22/2015 07/27/2016 Inactive amlodipine 5 mg tablet RxNorm: 337881 TAKE ONE TABLET BY MOUTH DAILY 11/13/2015 11/06/2016 Inactive Refill not appropriate clonazepam 0.5 mg tablet RxNorm: 448551 Tablet(s) TAKE 2 TABLETS BY MOUTH AT BEDTIME NEEDED 11/08/2015 01/11/2017 Inactive clonazepam 0.5 mg tablet RxNorm: 909879 Tablet(s) TAKE 2 TABLETS BY MOUTH AT BEDTIME NEEDED 11/02/2015 01/29/2016 Inactive Prozac 40 mg capsule RxNorm: 457507 1 Capsule(s) PO daily 10/3010/24/2016 Inactive pravastatin 80 mg tablet RxNorm: 773646 1 Tablet(s) PO QPM 10/23/2016 Inactive OneTouch Ultra Test strips RxNorm: TEST ONCE DAILY 10/30/2015 01/27/2016 Inactive Imuran 50 mg tablet RxNorm: 442356 1.5 (75) Tablet(s) PO daily 08/17/2015 08/10/2016 Inactive K75.4 clonazepam 0.5 mg tablet RxNorm: 363691 Tablet(s) TAKE 2 TABLETS BY MOUTH AT BEDTIME NEEDED 08/10/2015 01/11/2017 Inactive Imuran 50 mg tablet RxNorm: 427454 1.5 (75) Tablet(s) PO daily 08/10/2015 08/16/2015 Inactive OneTouch Ultra Test strips RxNorm: TEST ONCE DAILY 08/09/2015 10/29/2015 Inactive Vitamin D2 50,000 unit capsule RxNorm: 886422 1 Capsule(s) PO QW 08/07/2015 01/11/2017 Inactive Mirapex 0.5 mg tablet RxNorm: 922785 Tablet(s) TAKE ONE TABLET BY MOUTH EVERY NIGHT AT BEDTIME 07/19/2015 01/14/2016 Inactive Lomotil 2.5 mg-0.025 mg tablet RxNorm: 2327788 1 Tablet(s) PO daily as needed 06/06/2015 01/11/2017 Inactive clonazepam 0.5 mg tablet RxNorm: 141338 Tablet(s) TAKE 2 TABLETS BY MOUTH AT BEDTIME NEEDED 05/10/2015 08/06/2015 Inactive sucralfate 1 gram tablet RxNorm: 385588 TAKE ONE-HALF TABLET BY MOUTH TWO TIMES A DAY ONE HOUR BEFORE MEALS 05/04/201501/26 Inactive meclizine 25 mg tablet RxNorm: 128589 1/2-1 Tablet(s) PO Q6 PRN 03/15/2015 08/24/2017 Inactive spironolactone 25 mg tablet RxNorm: 976525 1 Tablet(s) PO daily 03/14/2015 01/27/2016 Inactive spironolactone 25 mg tablet RxNorm: 796006 1 Tablet(s) PO daily 03/14/2015 03/13/2015 Inactive clonazepam 0.5 mg tablet RxNorm: 369936 TAKE 2 TABLETS BY MOUTH AT BEDTIME NEEDED 02/08/2015 05/02/2015 Inactive folic acid 1 mg tablet RxNorm: 518157 1 Tablet(s) PO daily 02/01/2016 Inactive clonazepam 0.5 mg tablet RxNorm: 112800 TAKE 2 TABLETS BY MOUTH AT BEDTIME NEEDED 02/06/2015 02/08/2015 Inactive amlodipine 10 mg tablet RxNorm: 809869 1/2 Tablet(s) PO daily 02/06/2015 07/18/2015 Inactive this replaces her 5mg pill OneTouch Ultra Test strips RxNorm: TEST ONCE DAILY 01/30/2015 07/28/2015 Inactive Mirapex 0.5 mg tablet RxNorm: 400188 TAKE ONE TABLET BY MOUTH EVERY NIGHT AT BEDTIME 01/29/2015 07/18/2015 Inactive sucralfate 1 gram tablet RxNorm: 858768 TAKE ONE-HALF TABLET BY MOUTH TWO TIMES A DAY ONE HOUR BEFORE MEALS 01/11/201504/10 Inactive OneTouch Ultra Test strips RxNorm: 1 Miscellaneous daily 11/1401/29/2015 Inactive amlodipine 10 mg tablet RxNorm: 942705 1 Tablet(s) PO daily 02/05/2015 Inactive this replaces her 5mg pill clonazepam 0.5 mg tablet RxNorm: 126198 2 Tablet(s) PO QHS 10/201402/05/2015 Inactive sucralfate 1 gram tablet RxNorm: 919209 1/2 Tablet(s) PO BID 1 hour before meal 10/11/2014 01/08/2015 Inactive losartan 100 mg tablet RxNorm: 693488 1 Tablet(s) PO daily 04/201410/05/2015 Inactive amlodipine 5 mg tablet RxNorm: 126505 1 Tablet(s) PO daily 04/201410/30/2014 Inactive Imuran 50 mg tablet RxNorm: 307795 1.5 (75) Tablet(s) PO daily 10/11/2014 08/09/2015 Inactive Lomotil 2.5 mg-0.025 mg tablet RxNorm: 1244731 1 Tablet(s) PO daily as needed 10/11/2014 06/05/2015 Inactive pravastatin 80 mg tablet RxNorm: 844510 1 Tablet(s) PO QPM 04/201410/05/2015 Inactive Klor-Con M20 mEq tablet,extended release RxNorm: 341289 1 Tablet(s) PO TID 10/11/2014 10/05/2015 Inactive Mirapex 0.5 mg tablet RxNorm: 095628 1 Tablet(s) PO QHS 201401/28/2015 Inactive Prozac 40 mg capsule RxNorm: 242863 1 Capsule(s) PO daily 10/1110/05/2015 Inactive Colazal 750 mg capsule RxNorm: 655060 1 Capsule(s) PO TID No Start Date Active Combigan 0.2 %-0.5 % eye drops RxNorm: 056995 1 Drop(s) ophthalmic (eye) BID No Start Date Active Lumigan 0.01 % eye drops RxNorm: 9270709 1 Drop(s) OPH QHS No Start Date Active Prolia 60 mg/mL subcutaneous syringe RxNorm: 779880 1 Milliliter(s) SQ every 6 months No Start Date Active Vitamin D2 50,000 unit capsule RxNorm: 627039 1 Capsule(s) PO QW No Start Date 08/06/2015 Inactive OneTouch Ultra Test strips RxNorm: 1 Miscellaneous daily No Start Date 11/13/2014 Inactive Plavix 75 mg tablet RxNorm: 340160 1 Tablet(s) PO daily No Start Date 06/17/2017 Inactive Lomotil 2.5 mg-0.025 mg tablet RxNorm: 5694631 1 Tablet(s) PO daily as needed No Start Date 10/10/2014 Inactive folic acid 1 mg tablet RxNorm: 360904 1 Tablet(s) PO daily No Start Date 02/06/2015 Inactive amlodipine 5 mg tablet RxNorm: 505258 1 Tablet(s) PO daily No Start Date 10/10/2014 Inactive Imuran 50 mg tablet RxNorm: 500692 1 1/2 (75) Tablet(s) PO daily No Start Date 10/10/2014 Inactive Boniva 3 mg/3 mL intravenous syringe RxNorm: 130270 Milliliter(s) IV No Start Date 07/18/2015 Inactive potassium chloride 20 meq RxNorm: 511736 1 PO TID No Start Date 10/10/2014 Inactive sucralfate 1 gram tablet RxNorm: 193739 1/2 Tablet(s) PO BID 1 hour before meal No Start Date 10/10/2014 Inactive losartan 100 mg tablet RxNorm: 612299 1 Tablet(s) PO daily No Start Date 10/10/2014 Inactive Vitamin D3 2,000 unit tablet RxNorm: 002149 1 Tablet(s) PO daily No Start Date 08/23/2015 Inactive Calcium + D oral RxNorm: 402048 oral No Start Date 08/24/2017 Inactive Prozac 40 mg capsule RxNorm: 631370 1 Capsule(s) PO daily No Start Date 10/10/2014 Inactive timolol 0.5 % eye drops RxNorm: 330396 1 Drop(s) OPH BID No Start Date 12/28/2017 Inactive clonazepam 0.5 mg tablet RxNorm: 171692 2 Tablet(s) PO QHS No Start Date 10/16/2014 Inactive amlodipine 5 mg tablet RxNorm: 626083 1 Tablet(s) PO daily No Start Date 08/22/2015 Inactive pravastatin 80 mg tablet RxNorm: 720975 1 Tablet(s) PO QPM No Start Date 10/10/2014 Inactive Lialda 1.2 gram tablet,delayed release RxNorm: 192870 3 Tablet(s) PO daily No Start Date 07/01/2016 Inactive Alavert 10 mg disintegrating tablet RxNorm: 868024 1 Tablet(s) PO daily as needed No [...] infarction, unspecified ICD-10: I63.9 ICD-9: 434.91 12/05/2016 Actinic keratosis ICD-10: L57.0 ICD-9: 702.0 01/23/2016 Other fatigue ICD-10: R53.83 ICD-9: 780.79 01/23/2016 Encounter for immunization ICD-10: Z23 ICD-9: V04.81 01/23/2016 Family history of other endocrine, nutritional and metabolic diseases ICD-10: Z83.49 ICD-9: V18.19 01/23/2016 Abnormal weight gain ICD-10: R63.5 ICD-9: 783.1 01/23/2016 Vitamin D deficiency, unspecified ICD-10: E55.9 ICD-9: 268.9 08/23/2015 Other depressive episodes ICD-10: F32.8 ICD-9: 311 08/23/2015 Encounter for general adult medical examination without abnormal findings ICD-10: Z00.00 ICD-9: V70.0 07/19/2015 Benign paroxysmal vertigo, unspecified ear ICD-10: H81.10 ICD-9: 386.11 04/17/2015 Edema, unspecified ICD-10: R60.9 ICD-9: 782.3 02/06/2015 DEPRESSIVE DISORDER NEC ICD-9: 311 2014 ESOPHAGEAL REFLUX ICD-9: 530.81 2014 RESTLESS LEGS SYNDROME ICD-9: 333.94 05/2014 HYPERLIPIDEMIA ICD-9: 272.4 12/13/2014 ESSENTIAL HYPERTENSION ICD-9: 401.9 12/13 Reason For Visit Reason For Visit Effective [...] 31.9 pg 02/23/2018 Cbc With Differential Ord2 Storey% 8.8 % 02/23/2018 Cbc With Differential Ord2 [...] 1.24 K/ul 02/23/2018 Cbc With Differential Ord2 Storey ABS# 0.5 K/ul 02/23/2018 Cbc With Differential Ord2 Eos ABS# 0.1 K/ul 02/23/2018 Cbc With Differential Ord2 Baso ABS# 0.0 K/ul 02/23/2018 Comp Metabolic Bkx867 NA 136 mEq/L 02/23/2018 Comp Metabolic Lxg787 K 4.0 mEq/L 02/23/2018 Comp Metabolic Vuu174 CL 105 mEq/L 02/23/2018 Comp Metabolic Jku905 CO2 20.0 mEq/L 02/23/2018 Comp Metabolic Dwy371 ANION GAP 15 02/23/2018 Comp Metabolic Lqv911 GLUCOSE 129 mg/dL 02/23/2018 Comp Metabolic Jvo680 Creat 0.9 mg/dL 02/23/2018 Comp Metabolic Tnc831 eGFR 66 ml/min/1.73m2 02/23/2018 Comp Metabolic Qkl232 BUN 11 mg/dL 02/23/2018 Comp Metabolic Ydz719 B/C Ratio 12.2 Ratio 02/23/2018 Comp Metabolic Xhn343 CALCIUM 8.6 mg/dL 02/23/2018 Comp Metabolic Rxt267 ALK PHOS 43 U/L 02/23/2018 Comp Metabolic Skp736 AST(SGOT) 33 U/L 02/23/2018 Comp Metabolic Yuj785 ALT(SGPT) 24 U/L 02/23/2018 Comp Metabolic Cnb777 BILI T 0.5 mg/dL 02/23/2018 Comp Metabolic Ccq068 ALBUMIN 4.2 g/dL 02/23/2018 Comp Metabolic Mkr528 TPRO 6.8 g/dL 02/23/2018 Comp Metabolic Puj059 GLOB 2.6 g/dL 02/23/2018 Comp Metabolic Zwg773 A/G Ratio 1.6 Ratio 02/23/2018 Comp Metabolic Sot591 Osmo 273 mOsmo 02/23/2018 Vitamin D 25 Oh Htc8526 VITAMIN D, 25 HYDROXY 29.25 ng/mL Sed Rate Ord21 ESR 8 mm/hr 02/23/2018 Hepatic Fql333 ALBUMIN 4.3 g/dL 01/05/2018 Hepatic Rgb974 TPRO 6.7 g/dL 01/05/2018 Hepatic Tco667 GLOB 2.5 g/dL 01/05/2018 Hepatic Pjk197 A/G Ratio 1.7 Ratio 01/05/2018 Hepatic Eyk365 ALK PHOS 53 U/L 01/05/2018 Hepatic Okz805 ALT(SGPT) 31 U/L 01/05/2018 Hepatic Ajp449 AST(SGOT) 44 U/L 01/05/2018 Hepatic Jzy645 BILI T 0.4 mg/dL 01/05/2018 Hepatic Yrv338 BILI D 0.1 mg/dL 01/05/2018 Hepatic Pqg153 BILI I 0.3 mg/dL 01/05/2018 Comp Metabolic Pwn853 NA 133 mEq/L 10/20/2017 Comp Metabolic Rzp659 K 4.1 mEq/L 10/20/2017 Comp Metabolic Fzd024 CL 103 mEq/L 10/20/2017 Comp Metabolic Yvk788 CO2 23.0 mEq/L 10/20/2017 Comp Metabolic Jlg630 ANION GAP 11 10/20/2017 Comp Metabolic Sus010 GLUCOSE 118 mg/dL 10/20/2017 Comp Metabolic Tcy886 Creat 0.9 mg/dL 10/20/2017 Comp Metabolic Cdc643 eGFR 64 ml/min/1.73m2 10/20/2017 Comp Metabolic Mfx756 BUN 14 mg/dL 10/20/2017 Comp Metabolic Sbr865 B/C Ratio 15.2 Ratio 10/20/2017 Comp Metabolic Lqi733 CALCIUM 8.8 mg/dL 10/20/2017 Comp Metabolic Ryo467 ALK PHOS 43 U/L 10/20/2017 Comp Metabolic Tpy451 AST(SGOT) 31 U/L 10/20/2017 Comp Metabolic Ivz741 ALT(SGPT) 25 U/L 10/20/2017 Comp Metabolic Juw866 BILI T 0.4 mg/dL 10/20/2017 Comp Metabolic Qee341 ALBUMIN 4.1 g/dL 10/20/2017 Comp Metabolic Slc139 TPRO 6.6 g/dL 10/20/2017 Comp Metabolic Iir720 GLOB 2.5 g/dL 10/20/2017 Comp Metabolic Soj941 A/G Ratio 1.6 Ratio 10/20/2017 Comp Metabolic Qju037 Osmo 268 mOsmo 10/20/2017 Vitamin D 25 Oh Usy5489 VITAMIN D, 25 HYDROXY 42.65 ng/mL C-Reactive [...] 32.0 pg 10/20/2017 Cbc With Differential Ord2 Storey% 8.6 % 10/20/2017 Cbc With Differential Ord2 [...] 1.16 K/ul 10/20/2017 Cbc With Differential Ord2 Storey ABS# 0.5 K/ul 10/20/2017 Cbc With Differential [...] 94.9 fl 07/21/2017 Cbc With Differential Ord2 Storey% 9.7 % 07/21/2017 Cbc With Differential Ord2 MCH 32.2 pg 07/21/2017 Cbc With Differential Ord2 Eos% 0.5 % 07/21/2017 Cbc With Differential Ord2 MCHC 33.9 pg 07/21/2017 Cbc With Differential Ord2 Baso% 0.3 % 07/21/2017 Cbc With Differential Ord2 PLT 216 K/ul 07/21/2017 Cbc With Differential Ord2 Neut ABS# 4.54 K/ul 07/21/2017 Cbc With Differential Ord2 RDW 13.3 % 07/21/2017 Cbc With Differential Ord2 Lymph ABS# 1.20 K/ul 07/21/2017 Cbc With Differential Ord2 Storey ABS# 0.6 K/ul 07/21/2017 Cbc With Differential Ord2 Eos ABS# 0.0 K/ul 07/21/2017 Cbc With Differential Ord2 Baso ABS# 0.0 K/ul 07/21/2017 Sed Rate Ord21 ESR 14 mm/hr 07/21/2017 Comp Metabolic Uax009 NA 135 mEq/L 07/21/2017 Comp Metabolic Jpo410 K 4.5 mEq/L 07/21/2017 Comp Metabolic Qag726 CL 101 mEq/L 07/21/2017 Comp Metabolic Khk943 CO2 26.0 mEq/L 07/21/2017 Comp Metabolic Qab886 ANION GAP 13 07/21/2017 Comp Metabolic Odc677 GLUCOSE 97 mg/dL 07/21/2017 Comp Metabolic Koc517 Creat 0.9 mg/dL 07/21/2017 Comp Metabolic Ctk519 eGFR 66 ml/min/1.73m2 07/21/2017 Comp Metabolic Hgj870 BUN 13 mg/dL 07/21/2017 Comp Metabolic Ovb883 B/C Ratio 14.4 Ratio 07/21/2017 Comp Metabolic Nrr714 CALCIUM 9.2 mg/dL 07/21/2017 Comp Metabolic Dru802 ALK PHOS 46 U/L 07/21/2017 Comp Metabolic Vtf720 AST(SGOT) 31 U/L 07/21/2017 Comp Metabolic Bsn040 ALT(SGPT) 19 U/L 07/21/2017 Comp Metabolic Zan573 BILI T 0.5 mg/dL 07/21/2017 Comp Metabolic Xvm881 ALBUMIN 4.5 g/dL 07/21/2017 Comp Metabolic Ofu202 TPRO 7.2 g/dL 07/21/2017 Comp Metabolic Dmb049 GLOB 2.7 g/dL 07/21/2017 Comp Metabolic Kjn982 A/G Ratio 1.7 Ratio 07/21/2017 Comp Metabolic Gcv842 Osmo 270 mOsmo 07/21/2017 Vitamin D 25 Oh Mqo4431 VITAMIN D, 25 HYDROXY 31.39 ng/mL C-Reactive [...] 96.0 fl 04/14/2017 Cbc With Differential Ord2 Storey% 9.1 % 04/14/2017 Cbc With Differential Ord2 MCH 31.9 pg 04/14/2017 Cbc With Differential Ord2 Eos% 0.1 % 04/14/2017 Cbc With Differential Ord2 MCHC 33.3 pg 04/14/2017 Cbc With Differential Ord2 PLT 207 K/ul 04/14/2017 Cbc With Differential Ord2 Baso% 0.3 % 04/14/2017 Cbc With Differential Ord2 Neut ABS# 5.27 K/ul 04/14/2017 Cbc With Differential Ord2 RDW 13.3 % 04/14/2017 Cbc With Differential Ord2 Lymph ABS# 1.47 K/ul 04/14/2017 Cbc With Differential Ord2 Storey ABS# 0.7 K/ul 04/14/2017 Cbc With Differential Ord2 Eos ABS# 0.0 K/ul 04/14/2017 Cbc With Differential Ord2 Baso ABS# 0.0 K/ul 04/14/2017 Comp Metabolic Fjq648 NA 136 mEq/L 04/14/2017 Comp Metabolic Mwr577 K 4.4 mEq/L 04/14/2017 Comp Metabolic Dmz869 CL 104 mEq/L 04/14/2017 Comp Metabolic Hgw603 CO2 21.0 mEq/L 04/14/2017 Comp Metabolic Buo938 ANION GAP 15 04/14/2017 Comp Metabolic Gdq084 GLUCOSE 112 mg/dL 04/14/2017 Comp Metabolic Yrf421 Creat 1.1 mg/dL 04/14/2017 Comp Metabolic Lsc506 eGFR 51 ml/min/1.73m2 04/14/2017 Comp Metabolic Thp010 BUN 16 mg/dL 04/14/2017 Comp Metabolic Abs243 B/C Ratio 14.3 Ratio 04/14/2017 Comp Metabolic Sqn358 CALCIUM 8.9 mg/dL 04/14/2017 Comp Metabolic Fyw469 ALK PHOS 39 U/L 04/14/2017 Comp Metabolic Cmy403 AST(SGOT) 24 U/L 04/14/2017 Comp Metabolic Fyx373 ALT(SGPT) 18 U/L 04/14/2017 Comp Metabolic Gzs210 BILI T 0.5 mg/dL 04/14/2017 Comp Metabolic Ozc626 ALBUMIN 4.3 g/dL 04/14/2017 Comp Metabolic Anf497 TPRO 6.8 g/dL 04/14/2017 Comp Metabolic Evw949 GLOB 2.5 g/dL 04/14/2017 Comp Metabolic Tnm626 A/G Ratio 1.7 Ratio 04/14/2017 Comp Metabolic Vim852 Osmo 274 mOsmo 04/14/2017 Vitamin D 25 Oh Xfs2420 VITAMIN D, 25 HYDROXY 29.88 ng/mL Sed Rate Ord21 ESR 15 mm/hr 04/14/2017 C-Reactive Protein Qnt Crqnt CRP 0.1 mg/dl 04/14/2017 C-Reactive Protein Qnt Crqnt CRP 0.1 mg/dl 02/09/2017 Comp Metabolic Gad191 NA 135 mEq/L 02/09/2017 Comp Metabolic Scj275 K 4.4 mEq/L 02/09/2017 Comp Metabolic Nmx193 CL 102 mEq/L 02/09/2017 Comp Metabolic Wam942 CO2 23.0 mEq/L 02/09/2017 Comp Metabolic Vtx341 ANION GAP 14 02/09/2017 Comp Metabolic Ytg287 GLUCOSE 98 mg/dL 02/09/2017 Comp Metabolic Xjy279 Creat 0.9 mg/dL 02/09/2017 Comp Metabolic Fzb916 eGFR 65 ml/min/1.73m2 02/09/2017 Comp Metabolic Kpp503 BUN 18 mg/dL 02/09/2017 Comp Metabolic Orh349 B/C Ratio 19.8 Ratio 02/09/2017 Comp Metabolic Hzd252 CALCIUM 9.2 mg/dL 02/09/2017 Comp Metabolic Ydt420 ALK PHOS 42 U/L 02/09/2017 Comp Metabolic Kua126 AST(SGOT) 24 U/L 02/09/2017 Comp Metabolic Vtt133 ALT(SGPT) 16 U/L 02/09/2017 Comp Metabolic Mao518 BILI T 0.4 mg/dL 02/09/2017 Comp Metabolic Asw720 ALBUMIN 4.4 g/dL 02/09/2017 Comp Metabolic Yen948 TPRO 7.0 g/dL 02/09/2017 Comp Metabolic Nbn767 GLOB 2.6 g/dL 02/09/2017 Comp Metabolic Fbg516 A/G Ratio 1.7 Ratio 02/09/2017 Comp Metabolic Qyp525 Osmo 272 mOsmo 02/09/2017 Cbc With Differential [...] 32.5 pg 02/09/2017 Cbc With Differential Ord2 Storey% 8.7 % 02/09/2017 Cbc With Differential Ord2 [...] 1.06 K/ul 02/09/2017 Cbc With Differential Ord2 Storey ABS# 0.6 K/ul 02/09/2017 Cbc With Differential Ord2 Eos ABS# 0.0 K/ul 02/09/2017 Cbc With Differential Ord2 Baso ABS# 0.0 K/ul 02/09/2017 Vitamin D 25 Oh Zed6017 VITAMIN D, 25 HYDROXY 36.00 ng/mL Sed Rate Ord21 ESR 16 mm/hr 02/09/2017 %Hba1C Cco525 % HbA1c 85847-2 6.1 % 05/20/2016 %Hba1C Een026 Gluc Ave 128 mg/dL 05/20/2016 Lipid Ord30 CHOL 212 mg/dL 05/20/2016 Lipid Ord30 HDL 52.0 mg/dl 05/20/2016 Lipid Ord30 TRIG 149 mg/dL 05/20/2016 Lipid Ord30 LDL 130 mg/dL 05/20/2016 Lipid Ord30 C/HDL 4.1 Ratio 05/20/2016 Comp Metabolic Ggh291 NA 134 mEq/L 04/21/2016 Comp Metabolic Niw535 K 5.0 mEq/L 04/21/2016 Comp Metabolic Vxu318 CL 103 mEq/L 04/21/2016 Comp Metabolic Sak825 CO2 24.0 mEq/L 04/21/2016 Comp Metabolic Iks970 ANION GAP 12 04/21/2016 Comp Metabolic Wns298 GLUCOSE 122 mg/dL 04/21/2016 Comp Metabolic Mfy265 Creat 1.1 mg/dL 04/21/2016 Comp Metabolic Bzm740 eGFR 52 ml/min/1.73m2 04/21/2016 Comp Metabolic Zvx669 BUN 24 mg/dL 04/21/2016 Comp Metabolic Cmp938 B/C Ratio 21.6 Ratio 04/21/2016 Comp Metabolic Ihi693 CALCIUM 9.7 mg/dL 04/21/2016 Comp Metabolic Vpc071 ALK PHOS 51 U/L 04/21/2016 Comp Metabolic Ftv495 AST(SGOT) 23 U/L 04/21/2016 Comp Metabolic Pwa374 ALT(SGPT) 17 U/L 04/21/2016 Comp Metabolic Psy059 BILI T 0.5 mg/dL 04/21/2016 Comp Metabolic Suo717 ALBUMIN 4.4 g/dL 04/21/2016 Comp Metabolic Hgr182 TPRO 7.3 g/dL 04/21/2016 Comp Metabolic Ojg947 GLOB 2.9 g/dL 04/21/2016 Comp Metabolic Rmd944 A/G Ratio 1.5 Ratio 04/21/2016 Comp Metabolic Utl384 Osmo 274 mOsmo 04/21/2016 Cbc With Differential Ord2 WBC 6.49 K/ul 04/21/2016 Cbc With Differential Ord2 RBC 4.28 M/ul 04/21/2016 Cbc With Differential Ord2 HGB 13.7 g/dl 04/21/2016 Cbc With Differential Ord2 Neut% 68.1 % 04/21/2016 Cbc With Differential Ord2 HCT 40.9 % 04/21/2016 Cbc With Differential Ord2 MCV 95.6 fl 04/21/2016 Cbc With Differential Ord2 Lymph% 21.4 % 04/21/2016 Cbc With Differential Ord2 Storey% 9.1 % 04/21/2016 Cbc With Differential Ord2 MCH 32.0 pg 04/21/2016 Cbc With Differential Ord2 Eos% 1.1 % 04/21/2016 Cbc With Differential Ord2 MCHC 33.5 pg 04/21/2016 Cbc With Differential Ord2 Baso% 0.3 % 04/21/2016 Cbc With Differential Ord2 PLT 190 K/ul 04/21/2016 Cbc With Differential Ord2 RDW 13.3 % 04/21/2016 Cbc With Differential Ord2 Neut ABS# 4.42 K/ul 04/21/2016 Cbc With Differential Ord2 Lymph ABS# 1.39 K/ul 04/21/2016 Cbc With Differential Ord2 Storey ABS# 0.6 K/ul 04/21/2016 Cbc With Differential Ord2 Eos ABS# 0.1 K/ul 04/21/2016 Cbc With Differential Ord2 Baso ABS# 0.0 K/ul 04/21/2016 Bili D Ord93 BILI D 0.1 mg/dL 04/21/2016 Bili D Ord93 BILI I 0.4 mg/dL 04/21/2016 Vitamin D 25 Oh Nvq8182 VITAMIN D, 25 HYDROXY 51.65 ng/mL Sed Rate Ord21 ESR 26 mm/hr 04/21/2016 C-Reactive Protein Qnt Crqnt CRP 0.1 mg/dl 04/21/2016 Comp Metabolic Atp092 NA 133 mEq/L 03/18/2016 Comp Metabolic Mpz939 K 4.9 mEq/L 03/18/2016 Comp Metabolic Iik415 CL 102 mEq/L 03/18/2016 Comp Metabolic Zbg812 CO2 25.0 mEq/L 03/18/2016 Comp Metabolic Uzy857 ANION GAP 11 03/18/2016 Comp Metabolic Tvn699 GLUCOSE 114 mg/dL 03/18/2016 Comp Metabolic Ryv425 Creat 1.1 mg/dL 03/18/2016 Comp Metabolic Nfd577 eGFR 54 ml/min/1.73m2 03/18/2016 Comp Metabolic Wbr207 BUN 23 mg/dL 03/18/2016 Comp Metabolic Pwx093 B/C Ratio 21.3 Ratio 03/18/2016 Comp Metabolic Pmv910 CALCIUM 9.7 mg/dL 03/18/2016 Comp Metabolic Apt828 ALK PHOS 54 U/L 03/18/2016 Comp Metabolic Qqp559 AST(SGOT) 21 U/L 03/18/2016 Comp Metabolic Pmo949 ALT(SGPT) 15 U/L 03/18/2016 Comp Metabolic Cyc425 BILI T 0.4 mg/dL 03/18/2016 Comp Metabolic Mru340 ALBUMIN 4.4 g/dL 03/18/2016 Comp Metabolic Jfn624 TPRO 7.4 g/dL 03/18/2016 Comp Metabolic Mxi046 GLOB 3.0 g/dL 03/18/2016 Comp Metabolic Hoo665 A/G Ratio 1.5 Ratio 03/18/2016 Comp Metabolic Zji604 Osmo 271 mOsmo 03/18/2016 Vitamin D 25 Oh Sqa1929 VITAMIN D, 25 HYDROXY 46.10 ng/mL Sed Rate Ord21 ESR 26 mm/hr 02/13/2016 Comp Metabolic Xlw506 NA 133 mEq/L 02/13/2016 Comp Metabolic Xvz053 K 4.8 mEq/L 02/13/2016 Comp Metabolic Xdl050 CL 104 mEq/L 02/13/2016 Comp Metabolic Cgj737 CO2 23.0 mEq/L 02/13/2016 Comp Metabolic Npo836 ANION GAP 11 02/13/2016 Comp Metabolic Nco477 GLUCOSE 104 mg/dL 02/13/2016 Comp Metabolic Utw464 Creat 1.0 mg/dL 02/13/2016 Comp Metabolic Tkg819 eGFR 56 ml/min/1.73m2 02/13/2016 Comp Metabolic Bto181 BUN 25 mg/dL 02/13/2016 Comp Metabolic Beg713 B/C Ratio 24.0 Ratio 02/13/2016 Comp Metabolic Blq591 CALCIUM 9.1 mg/dL 02/13/2016 Comp Metabolic Scp328 ALK PHOS 43 U/L 02/13/2016 Comp Metabolic Xei511 AST(SGOT) 21 U/L 02/13/2016 Comp Metabolic Xmq160 ALT(SGPT) 17 U/L 02/13/2016 Comp Metabolic Vqj792 BILI T 0.4 mg/dL 02/13/2016 Comp Metabolic Kdt339 ALBUMIN 4.3 g/dL 02/13/2016 Comp Metabolic Wyt262 TPRO 7.1 g/dL 02/13/2016 Comp Metabolic Zsm761 GLOB 2.9 g/dL 02/13/2016 Comp Metabolic Ztl042 A/G Ratio 1.5 Ratio 02/13/2016 Comp Metabolic Sab234 Osmo 271 mOsmo 02/13/2016 C-Reactive Protein Qnt [...] 18.5 % 02/13/2016 Cbc With Differential Ord2 Storey% 9.7 % 02/13/2016 Cbc With Differential Ord2 MCH 31.6 pg 02/13/2016 Cbc With Differential Ord2 Eos% 0.8 % 02/13/2016 Cbc With Differential Ord2 MCHC 33.7 pg 02/13/2016 Cbc With Differential Ord2 PLT 203 K/ul 02/13/2016 Cbc With Differential Ord2 Baso% 0.3 % 02/13/2016 Cbc With Differential Ord2 RDW 13.6 % 02/13/2016 Cbc With Differential Ord2 Neut ABS# 4.46 K/ul 02/13/2016 Cbc With Differential Ord2 Lymph ABS# 1.17 K/ul 02/13/2016 Cbc With Differential Ord2 Storey ABS# 0.6 K/ul 02/13/2016 Cbc With Differential Ord2 Eos ABS# 0.1 K/ul 02/13/2016 Cbc With Differential Ord2 Baso ABS# 0.0 K/ul 02/13/2016 Comp Metabolic Gxf154 NA 132 mEq/L 10/08/2015 Comp Metabolic Gfy588 K 4.7 mEq/L 10/08/2015 Comp Metabolic Swz846 CL 101 mEq/L 10/08/2015 Comp Metabolic Rmz529 CO2 24.0 mEq/L 10/08/2015 Comp Metabolic Goi930 ANION GAP 12 10/08/2015 Comp Metabolic Lsp346 GLUCOSE 85 mg/dL 10/08/2015 Comp Metabolic Xlw673 Creat 0.9 mg/dL 10/08/2015 Comp Metabolic Eis268 eGFR 66 ml/min/1.73m2 10/08/2015 Comp Metabolic Bct726 BUN 29 mg/dL 10/08/2015 Comp Metabolic Jom101 B/C Ratio 32.2 Ratio 10/08/2015 Comp Metabolic Rsb895 CALCIUM 9.1 mg/dL 10/08/2015 Comp Metabolic Jel886 ALK PHOS 40 U/L 10/08/2015 Comp Metabolic Uzj269 AST(SGOT) 18 U/L 10/08/2015 Comp Metabolic Gag994 ALT(SGPT) 14 U/L 10/08/2015 Comp Metabolic Mvw519 BILI T 0.3 mg/dL 10/08/2015 Comp Metabolic Woy593 ALBUMIN 4.1 g/dL 10/08/2015 Comp Metabolic Qxd055 TPRO 6.8 g/dL 10/08/2015 Comp Metabolic Nvm459 GLOB 2.7 g/dL 10/08/2015 Comp Metabolic Rvh775 A/G Ratio 1.5 Ratio 10/08/2015 Comp Metabolic Ack983 Osmo 270 mOsmo 10/08/2015 C-Reactive Protein Qnt [...] 16.6 % 10/08/2015 Cbc With Differential Ord2 Storey% 10.5 % 10/08/2015 Cbc With Differential Ord2 [...] 1.24 K/ul 10/08/2015 Cbc With Differential Ord2 Storey ABS# 0.8 K/ul 10/08/2015 Cbc With Differential Ord2 Eos ABS# 0.0 K/ul 10/08/2015 Cbc With Differential Ord2 Baso ABS# 0.0 K/ul 10/08/2015 Sed Rate Ord21 ESR 20 mm/hr 10/08/2015 Vitamin D 25 Oh Jyd7022 VITAMIN D, 25 HYDROXY 54.28 ng/mL Tsh Ord6 hTSH II 1.72 uIU/mL 09/26/2015 Free T4 Puo423 FREE T4 0.80 ng/dL 09/26/2015 Comp Metabolic Kmx889 NA 133 mEq/L 08/06/2015 Comp Metabolic Yft862 K 4.6 mEq/L 08/06/2015 Comp Metabolic Fyj999 CL 102 mEq/L 08/06/2015 Comp Metabolic Dye351 CO2 24.0 mEq/L 08/06/2015 Comp Metabolic Zsu840 ANION GAP 12 08/06/2015 Comp Metabolic Dra957 GLUCOSE 105 mg/dL 08/06/2015 Comp Metabolic Ste272 Creat 1.0 mg/dL 08/06/2015 Comp Metabolic Kte019 eGFR 60 ml/min/1.73m2 08/06/2015 Comp Metabolic Bmf897 BUN 28 mg/dL 08/06/2015 Comp Metabolic Syt745 B/C Ratio 28.6 Ratio 08/06/2015 Comp Metabolic Gqn518 CALCIUM 9.2 mg/dL 08/06/2015 Comp Metabolic Rld903 ALK PHOS 42 U/L 08/06/2015 Comp Metabolic Sxo978 AST(SGOT) 20 U/L 08/06/2015 Comp Metabolic Rpg754 ALT(SGPT) 16 U/L 08/06/2015 Comp Metabolic Gsd047 BILI T 0.3 mg/dL 08/06/2015 Comp Metabolic Vkz162 ALBUMIN 4.3 g/dL 08/06/2015 Comp Metabolic Oto687 TPRO 6.9 g/dL 08/06/2015 Comp Metabolic Dtx878 GLOB 2.7 g/dL 08/06/2015 Comp Metabolic Bbe353 A/G Ratio 1.6 Ratio 08/06/2015 Comp Metabolic Ytr805 Osmo 272 mOsmo 08/06/2015 C-Reactive Protein Qnt Crqnt CRP 0.00 mg/dl 08/06/2015 Vitamin D 25 Oh Zcd3512 VITAMIN D, 25 HYDROXY 36.25 ng/mL Cbc With Differential Ord2 WBC 6.41 K/ul 08/06/2015 Cbc With Differential Ord2 RBC 3.98 M/ul 08/06/2015 Cbc With Differential Ord2 HGB 12.6 g/dl 08/06/2015 Cbc With Differential Ord2 Neut% 69.9 % 08/06/2015 Cbc With Differential Ord2 HCT 37.5 % 08/06/2015 Cbc With Differential Ord2 MCV 94.2 fl 08/06/2015 Cbc With Differential Ord2 Lymph% 20.4 % 08/06/2015 Cbc With Differential Ord2 MCH 31.7 pg 08/06/2015 Cbc With Differential Ord2 Storey% 8.9 % 08/06/2015 Cbc With Differential Ord2 Eos% 0.6 % 08/06/2015 Cbc With Differential Ord2 MCHC 33.6 pg 08/06/2015 Cbc With Differential Ord2 PLT 216 K/ul 08/06/2015 Cbc With Differential Ord2 Baso% 0.2 % 08/06/2015 Cbc With Differential Ord2 Neut ABS# 4.48 K/ul 08/06/2015 Cbc With Differential Ord2 RDW 13.6 % 08/06/2015 Cbc With Differential Ord2 Lymph ABS# 1.31 K/ul 08/06/2015 Cbc With Differential Ord2 Storey ABS# 0.6 K/ul 08/06/2015 Cbc With Differential Ord2 Eos ABS# 0.0 K/ul 08/06/2015 Cbc With Differential Ord2 Baso ABS# 0.0 K/ul 08/06/2015 Cbc With Differential Ord2 New Analyzer Notice Please note new ref ranges starting 1-13-2016 due to implemntation of new five part differential hematolgy analyzer. 08/06/2015 Sed Rate Ord21 ESR 17 mm/hr 08/06/2015 Bili D Ord93 BILI D 0.1 mg/dL 04/04/2015 Bili D Ord93 BILI I 0.4 mg/dL 04/04/2015 %Hba1C Vbq434 % HbA1c 60511-1 5.7 % 04/04/2015 %Hba1C Fbq969 Gluc Ave 117 mg/dL 04/04/2015 Vitamin D 25 Oh Wio9787 VITAMIN D, 25 HYDROXY 47.62 ng/mL C-Reactive [...] Ord2 RDW 13.0 % 04/04/2015 Comp Metabolic Lew246 NA 132 mEq/L 04/04/2015 Comp Metabolic Kce859 K 4.6 mEq/L 04/04/2015 Comp Metabolic Vjr189 CL 100 mEq/L 04/04/2015 Comp Metabolic Yfa857 CO2 22.0 mEq/L 04/04/2015 Comp Metabolic Lhq716 ANION GAP 15 04/04/2015 Comp Metabolic The970 GLUCOSE 118 mg/dL 04/04/2015 Comp Metabolic Sgw697 Creat 1.0 mg/dL 04/04/2015 Comp Metabolic Zui478 eGFR 60 ml/min/1.73m2 04/04/2015 Comp Metabolic Hqi113 BUN 18 mg/dL 04/04/2015 Comp Metabolic Qfx726 B/C Ratio 18.4 Ratio 04/04/2015 Comp Metabolic Mqt038 CALCIUM 9.6 mg/dL 04/04/2015 Comp Metabolic Wqx695 ALK PHOS 63 U/L 04/04/2015 Comp Metabolic Pjx700 AST(SGOT) 17 U/L 04/04/2015 Comp Metabolic Wcp701 ALT(SGPT) 13 U/L 04/04/2015 Comp Metabolic Tlr421 BILI T 0.5 mg/dL 04/04/2015 Comp Metabolic Nmt144 ALBUMIN 4.6 g/dL 04/04/2015 Comp Metabolic Cps090 TPRO 7.4 g/dL 04/04/2015 Comp Metabolic Xui721 GLOB 2.8 g/dL 04/04/2015 Comp Metabolic Eke516 A/G Ratio 1.6 Ratio 04/04/2015 Comp Metabolic Hpr432 Osmo 268 mOsmo 04/04/2015 Sed Rate Ord21 ESR 16 mm/hr 04/04/2015 Lipid Ord30 CHOL 214 mg/dL 04/04/2015 Lipid Ord30 HDL 61.0 mg/dl 04/04/2015 Lipid Ord30 TRIG 155 mg/dL 04/04/2015 Lipid Ord30 LDL 122 mg/dL 04/04/2015 Lipid Ord30 C/HDL 3.5 Ratio 04/04/2015 %Hba1C Ylv562 % HbA1c 74610-2 5.9 % 11/28/2014 %Hba1C Yjn234 Gluc Ave 123 mg/dL 11/28/2014 Cbc With [...] Rate Ord21 ESR 19 mm/hr 11/27/2014 Hepatic Kpj605 ALBUMIN 4.4 g/dL 11/27/2014 Hepatic Pbe253 TPRO 7.0 g/dL 11/27/2014 Hepatic Lnm016 GLOB 2.6 g/dL 11/27/2014 Hepatic Bfa377 A/G Ratio 1.7 Ratio 11/27/2014 Hepatic Xih524 ALK PHOS 63 U/L 11/27/2014 Hepatic Bfc828 ALT(SGPT) 14 U/L 11/27/2014 Hepatic Nbt805 AST(SGOT) 19 U/L 11/27/2014 Hepatic Iix326 BILI T 0.4 mg/dL 11/27/2014 Hepatic Qea322 BILI D 0.1 mg/dL 11/27/2014 Hepatic Tnz051 BILI I 0.3 mg/dL 11/27/2014 Lipid Ord30 [...] FREE INC ANTIG Formatting Model/CDA Sections, Assigned to/Ron Tabitha CPT-4: 49918Tvlgyen 12/29/2017 PPPS, SUBSEQ VISIT CPT -4: G0439 09/17/2017 PPPS, SUBSEQ VISIT CPT -4: G0439 08/21/2016 PNEUMOCOCCAL VACC [address]: 29749163 CPT-4: 41553 02/20/2016 ADMIN PNEUMOCOCCAL VACCINE SNOMED CT: 02646056 CPT-4: G0009 02/20/2016 ADMIN INFLUENZA VIRUS VAC CPT-4: G0008 01/23/2016 FLU VACC 4 KATIE 3 YRS PLUS IM SNOMED CT: 83726261 CPT-4: 81276 01/23/2016 PPPS, SUBSEQ VISIT CPT -4: G0439 07/19/2015 Vital Signs Date Vital 01/12/2018 Blood Pressure 1: 124/70 Code : 8480-6 BMI: 30.2 Code : 65690-4 Heart Rate 1 : 59 bpm Height: 5'1" SpO2: 98% Weight: 160 lbs 12/29/2017 Blood Pressure 1: 148/82 Code : 8480-6 BMI: 30.4 Code : 36313-8 Heart Rate 1 : 60 bpm Height: 5'1" SpO2: 99% Weight: 161 lbs 09/17/2017 Height: Weight: 08/25/2017 Blood Pressure 1: 130/72 Code : 8480-6 BMI: 29.9 Code : 47905-6 Heart Rate 1 : 70 bpm Height: 5'1" SpO2: 93% Weight: 158 lbs 07/21/2017 Blood Pressure 1: 150/84 Code : 8480-6 BMI: 29.5 Code : 24581-6 Heart Rate 1 : 62 bpm Height: 5'1" SpO2: 98% Weight: 156 lbs 06/17/2017 Blood Pressure 1: 148/86 Code : 8480-6 BMI: 29.5 Code : 92569-3 Heart Rate 1 : 64 bpm Height: 5'1" SpO2: 98% Weight: 156 lbs 02/17/2017 Blood Pressure 1: 144/86 Code : 8480-6 BMI: 28.7 Code : 34881-2 Heart Rate 1 : 64 bpm Height: 5'1" SpO2: 96% Weight: 152 lbs 01/02/2017 Blood Pressure 1: 132/78 Code : 8480-6 BMI: 28.3 Code : 06038-3 Heart Rate 1 : 71 bpm Height: 5'1" SpO2: 97% Weight: 150 lbs 12/05/2016 Blood Pressure 1: 140/76 Code : 8480-6 BMI: 29.5 Code : 12839-7 Heart Rate 1 : 66 bpm Height: 5'1" SpO2: 98% Weight: 156 lbs 08/21/2016 Blood Pressure 1: 142/78 Code : 8480-6 BMI: 29.9 Code : 49979-1 Heart Rate 1 : 62 bpm Height: 5'1" SpO2: 98% Waist Measure (cm): 79 cm Weight: 158 lbs 08/19/2016 Blood Pressure 1: 142/78 Code : 8480-6 BMI: 29.9 Code : 55414-9 Heart Rate 1 : 62 bpm Height: 5'1" SpO2: 98% Weight: 158 lbs 05/20/2016 Blood Pressure 1: 144/80 Code : 8480-6 Blood Pressure 1: 152/76 Code: 8480-6 BMI: 29.3 Code: 79130-0 Heart Rate 1: 60 bpm Height: 5'1" SpO2: 95% Weight: 155 lbs 01/23/2016 Blood Pressure 1: 138/78 Code : 8480-6 BMI: 29.7 Code : 35613-4 Heart Rate 1 : 64 bpm Height: 5'1" SpO2: 98% Weight: 157 lbs 09/26/2015 Blood Pressure 1: 136/76 Code : 8480-6 BMI: 28.3 Code : 51404-6 Heart Rate 1 : 70 bpm Height: 5'1" SpO2: 98% Weight: 150 lbs 08/23/2015 Blood Pressure 1: 126/78 Code : 8480-6 BMI: 27.8 Code : 16701-8 Heart Rate 1 : 68 bpm Height: 5'1" SpO2: 97% Weight: 147 lbs 07/19/2015 Blood Pressure 1: 146/70 Code : 8480-6 BMI: 26.8 Code : 06779-2 Heart Rate 1 : 58 bpm Height: 5'1" SpO2: 96% Waist Measure (cm): 84 cm Weight: 142 lbs 04/17/2015 Blood Pressure 1: 132/62 Code : 8480-6 BMI: 25.3 Code : 47245-4 Heart Rate 1 : 98 bpm Height: 5'1" SpO2: 97% Weight: 134 lbs 03/15/2015 Blood Pressure 1: 158/72 Code : 8480-6 Blood Pressure 1: 160/70 Code: 8480-6 BMI: 25.5 Code: 06566-9 Heart Rate 1: 72 bpm Heart Rate 1: 74 bpm Height: Height: 5'1" SpO2: 98% Weight: 135 lbs Weight: 02/06/2015 Blood Pressure 1: 142/82 Code : 8480-6 BMI: 25.5 Code : 08841-0 Heart Rate 1 : 82 bpm Height: 5'1" SpO2: 96% Weight: 135 lbs 12/13/2014 Blood Pressure 1: 136/64 Code : 8480-6 BMI: 24.9 Code : 59884-8 Heart Rate 1 : 86 bpm Height: 5'1" SpO2: 95% Weight: 132 lbs 10/11/2014 Blood Pressure 1: 140/80 Code : 8480-6 BMI: 25.1 Code : 67230-2 Heart Rate 1 : 72 bpm Height: [...] Encounters Encounter Performer Location Codes Date ) 12262 EST. PATIENT, LEVEL III Diagnosis: Essential (primary) hypertension[ICD10: I10] Diagnosis: Type 2 diabetes mellitus without complications[ICD10: E11.9] Diagnosis: Encounter for immunization[ICD10: Z23] Diagnosis: Muscle weakness (generalized)[ICD10: M62.81] Maria Luisa Echeverria MD, [facility] CPT-4: 15743 01/12/2018 [id number]) 92589 EST. PATIENT, LEVEL IV Diagnosis: Essential (primary) hypertension[ICD10: I10] Diagnosis: Type 2 diabetes mellitus without complications[ICD10: E11.9] Diagnosis: Encounter for immunization[ICD10: Z23] Diagnosis: Muscle weakness (generalized)[ICD10: M62.81] [facility] CPT-4: 94989 12/29/2017 ([id number]) 02085 EST. PATIENT, LEVEL IV Diagnosis: Essential (primary) hypertension[ICD10: I10] Diagnosis: Muscle weakness (generalized)[ICD10: M62.81] Diagnosis: 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 artery[ICD10: I66.01 ] [facility] CPT-4: 20445 08/25/2017 [id number]) 59447 EST. PATIENT, LEVEL IV Diagnosis: Essential (primary) hypertension[ICD10: I10] Diagnosis: 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 artery[ICD10: I66.01 ] Maria Luisa Echeverria MD, [facility] CPT-4: 52972 07/21/2017 ([id number]) 38640 EST. PATIENT, LEVEL IV Diagnosis: Essential (primary) hypertension[ICD10: I10] Diagnosis: Type 2 diabetes mellitus without complications[ICD10: E11.9] Diagnosis: 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 artery[ICD10: I66.01 ] Maria Luisa Echeverria MD, [facility] CPT-4: 96868 06/17/2017 ([id number]) 39766 EST. PATIENT, LEVEL IV Diagnosis: Essential (primary) hypertension[ICD10: I10] Diagnosis: Muscle weakness (generalized)[ICD10: M62.81] Diagnosis: Mixed hyperlipidemia[ICD10: E78.2] Maria Luisa Echeverria MD, [facility] CPT-4: 44626 02/17/2017 ([id number]) 51910 EST. PATIENT, LEVEL III Diagnosis: Essential (primary) hypertension[ICD10: I10] Diagnosis: Muscle weakness (generalized)[ICD10: M62.81] Diamond Echeverria MD, [facility] CPT-4: 72081 01/02/2017 ([id number]) 76377 EST. PATIENT, LEVEL IV Diagnosis: Muscle weakness (generalized)[ICD10: M62.81] Diagnosis: Cerebral infarction, unspecified[ICD10: I63.9] Diagnosis: Essential (primary) hypertension[ICD10: I10] Diagnosis: Gastro-esophageal reflux disease without esophagitis[ICD10: K21.9] Diagnosis: Allergic rhinitis due to pollen[ICD10: J30.1] Diamond Echeverria MD, [facility] CPT-4: 83335 12/05/2016 ([id number]) 81641 EST. PATIENT, LEVEL IV Diagnosis: Essential (primary) hypertension[ICD10: I10] Diagnosis: Type 2 diabetes mellitus without complications[ICD10: E11.9] Maria Luisa Echeverria MD, [facility] CPT-4: 88662 08/19/2016 11030 EST. PATIENT, LEVEL IV Diagnosis: Essential (primary) hypertension[ICD10: I10] Diagnosis: Type 2 diabetes mellitus without complications[ICD10: E11.9] Diagnosis: Mixed hyperlipidemia[ICD10: E78.2] Ashley Echeverria MD, [facility] CPT-4: 90222 05/20/2016 ([id number]) 22580 EST. PATIENT, LEVEL IV Diagnosis: Type 2 diabetes mellitus without complications[ICD10: E11.9] Diagnosis: Family history of other endocrine, nutritional and metabolic diseases [ICD10: Z83.49] Diagnosis: Other fatigue[ICD10: R53.83] Diagnosis: Abnormal weight gain[ICD10: R63.5] Diagnosis: Actinic keratosis[ICD10: L57.0] Maria Luisa Echeverria MD, [facility] CPT- 4: 89016 01/23/2016 ([id number]) 04133 EST. PATIENT, LEVEL IV Diagnosis: Family history of other endocrine, nutritional and metabolic diseases [ICD10: Z83.49] Diagnosis: Other fatigue[ICD10: R53.83] Diagnosis: Abnormal weight gain[ICD10: R63.5] Diagnosis: Actinic keratosis[ICD10: L57.0] Diagnosis: Type 2 diabetes mellitus without complications[ICD10: E11.9] Maria Luisa Echeverria MD, [facility] CPT-4: 10339 09/26/2015 ([id number]) 01123 EST. PATIENT, LEVEL IV Diagnosis: Essential (primary) hypertension[ICD10: I10] Diagnosis: Type 2 diabetes mellitus without complications[ICD10: E11.9] Diagnosis: Other depressive episodes[ICD10: F32.8] Diagnosis: Vitamin D deficiency, unspecified[ICD10: E55.9] Maria Luisa Echeverria MD [facility] CPT-4: 52050 08/23/2015 ([id number]) 21243 EST. PATIENT, LEVEL IV Diagnosis: Essential (primary) hypertension[ICD10: I10] Diagnosis: Benign paroxysmal vertigo, unspecified ear[ICD10: H81.10] Diagnosis: Type 2 diabetes mellitus without complications[ICD10: E11.9] Maria Luisa Echeverria MD [facility] CPT-4: 36689 04/17/2015 [id number] 40225 EST. PATIENT, LEVEL III Diagnosis: Essential (primary) hypertension[ICD10: I10] Diagnosis: Benign paroxysmal vertigo, unspecified ear[ICD10: H81.10] Diamond Echeverria MD , [facility] CPT-4: 49405 03/15/2015 ([id number]) 17613 EST. PATIENT, LEVEL III Diagnosis: Essential (primary) hypertension[ICD10: I10] Diagnosis: Edema, unspecified[ICD10: R60.9] Diamond Echeverria MD, [facility] CPT-4: 76245 02/06/2015 ([id number]) 45955 EST. PATIENT, LEVEL IV Diagnosis: ESSENTIAL HYPERTENSION[ICD9: 401.9] Diagnosis: HYPERLIPIDEMIA[ICD9: 272.4] Diagnosis: DEPRESSIVE DISORDER NEC[ICD9: 311] Diagnosis: ESOPHAGEAL REFLUX[ICD9: 530.81] Diagnosis: RESTLESS LEGS SYNDROME[ICD9: 333.94] Maria Luisa Echeverria MD, [facility] CPT-4: 34600 12/13/2014 ([id number]) OFFICE VISIT, NEW - LEVEL 4 Diagnosis: ESSENTIAL HYPERTENSION[ICD9: 401.9] Diagnosis: HYPERLIPIDEMIA[ICD9: 272.4] Diagnosis: DEPRESSIVE DISORDER NEC[ICD9: 311] Diagnosis: ESOPHAGEAL REFLUX[ICD9: 530.81] Diagnosis: RESTLESS LEGS SYNDROME[ICD9: 333.94] Maria Luisa Echeverria MD, [facility] CPT-4: 67025 10/11/2014 Plan of Care Planned Activity Notes Codes Status Date Visit Plan: Hypertension - improved control - continue with current medications, continue with no added salt diet. Pt has been encouraged to exercise daily. The pt has been advised to call the office if there are any acute concerns about change in blood pressure readings at home. 01/12/2018 Appointment: Maria Luisa Echeverria WPtel: [address] [place], [place] [id number] (15 min) Moderate 01/12/2018 Patient Education: Patient [...] she stopped [facility]. She states that she does struggle with her strength. She states that she would rather do activities on her own rather than going to physical therapy. high dose flu shot today due to autoimmune deficiency 12/29/2017 Appointment: Maria Luisa Echeverria WPtel: [phone] [facility] (15 min) Moderate 12/29/2017 Patient Education: Patient [...] she stopped therapy when she left the [facility]. She states that she does struggle with her strength. She states that she would rather do activities on her own rather than going to physical therapy. 08/25/2017 Appointment: Maria Luisa Echeverria WPtel: [phone] [facility] (15 min) Moderate 08/25/2017 Patient Education: Patient [...] therapy. 07/21/2017 Appointment: Maria Luisa Echeverria WPtel: [facility] [place] (15 min) Moderate 07/21/2017 Patient Education: Patient Medication Summary Completed 07/21/2017 Visit Plan: Right Middle Cerebral artery stroke - appt with neurology with Dr. Macario at Neurology. Gait instability - appt with outpt physical therapy Hypertension - stable - continue with current treatment - monitor symptoms DM - diet controlled - 06/17/2017 Appointment: Maria Luisa Echeverria WPtel: [facility] [place] (15 min) Moderate 06/17/2017 Patient Education: Patient [...] 02/17/2017 Appointment: Maria Luisa Echeverria WPtel: [phone] [facility] (15 min) Moderate 02/17/2017 Patient Education: Patient Medication Summary Completed 02/17/2017 Care Plan: Referral Order SNOMED-CT : [id number] Pending 02/17/2017 Visit Plan: Hypertension - well controlled - continue with current medications, continue with no added salt diet. Pt has been encouraged to exercise daily. The pt has been advised to call the office if there are any acute concerns about change in blood pressure readings at home. Weakness-recent stroke-strength improving-no changes 01/02/2017 Appointment: Diamond Sawyer WPtel: [phone] [phone] (30 min) Complex 01/02/2017 Patient Education: Patient Medication Summary Completed 01/02/2017 Visit Plan: Hypertension - well controlled - continue with current medications, continue with no added salt diet. Pt has been encouraged to exercise daily. The pt has been advised to call the office if there are any acute concerns about change in blood pressure readings at home. Generalized weakness-gait jxbnipboovi-ZYM-ugpzijxj PT-patient to use 4 wheeled walker GERD- dysphagia-refer for speech eval-start pepcid twice daily Allergies-chronic- restart allergy pill as directed 12/05/2016 Appointment: Diamond Sawyer WPtel: [phone] [phone] (15 min) Moderate 12/05/2016 Patient Education: [...] surrogate. 08/21/2016 Appointment: Ashley Wooten WPtel: [phone] [facility] [facility] - Annual Wellness Visit 08/21/2016 Patient Education: [...] 08/19/2016 Appointment: Maria Luisa Echeverria WPtel: [phone] [facility] (15 min) Moderate 08/19/2016 Patient [...] to medications. 05/20/2016 Appointment: Ashley Wooten WPtel: [phone] [facility] (15 min) Moderate 05/20/2016 Patient Education: [...] TODAY 01/23/2016 Appointment: [phone] [facility] (15 min) Moderate 01/23/2016 Patient Education: Patient [...] home. 09/26/2015 Appointment: Maria Luisa Echeverria WPtel: [facility] [place] (15 min) Moderate 09/26/2015 Patient [...] Completed 08/23/2015 Appointment: Maria Luisa Echeverria WPtel: [facility] [place] (15 min) Moderate 08/22/2015 Appointment: Maria Luisa Echeverria WPtel: [facility] [place] (15 min) Moderate 08/15/2015 Visit [...] paperwork for health care surrogate. 07/19/2015 Appointment: [facility] - Annual Wellness Visit 07/19/2015 Patient [...] week. 04/17/2015 Appointment: Maria Luisa Echeverria WPtel: [address] [place], [place] [id number] (15 min) Moderate 04/17/2015 Patient Education: Patient [...] 12/13/2014 Appointment: [facility] Lu[facility]cheverria [facility] [phone] [phone] (15 min) Moderate 12/13/2014 Patient Education: Patient [...] 10/11/2014 Appointment: Maria Luisa Echeverria [facility] [phone] [facility] [place] New Patient 10/11/2014 Appointment: Maria Luisa Echeverria [facility]el[facility] [phone] [facility] (15 min) Moderate 10/11/2014 Patient Education: Patient [...] she stopped [facility]. She states that she does struggle with [...] blood pressure readings at home. Generalized weakness-gait recxrrhlaqg-DSW-ykgressh PT-patient to use 4 wheeled walker BXZR-szyqasped-howrk for speech eval-start pepcid twice daily Rjqgcbycu-ocsvvcw-obyxugw allergy pill as directed . Hypertension - [...] she stopped therapy when she left [facility]. She states that she does struggle with [...]
[2018-07-02 14:59] LABS: BASOPHILS % (AUTO) 1 % (0-10); EOSINOPHILS # (AUTO) 0.1 10^3/uL (0.0-0.3); EOSINOPHILS % (AUTO) 2 % (0-10); HEMATOCRIT 42 % (35-52); HEMOGLOBIN 14.3 G/DL (11.5-16.0); LYMPHOCYTES # (AUTO) 1.5 X 10^3 (1.0-4.0); LYMPHOCYTES % (AUTO) 24 % (12-44); MEAN CORPUSCULAR HEMOGLOBIN 31 PG (25-34); MEAN CORPUSCULAR HGB CONC 34 G/DL (32-36); MEAN CORPUSCULAR VOLUME 92 FL (80-99); MEAN PLATELET VOLUME 8.9 FL (7.4-10.4); MONOCYTES # (AUTO) 0.8 X 10^3 (0.0-1.0); MONOCYTES % (AUTO) 12 % (0-12); NEUTROPHILS % (AUTO) 62 % (42-75); PLATELET COUNT 213 10^3/uL (130-400); RED CELL DISTRIBUTION WIDTH 13.4 % (10.0-14.5); WHITE BLOOD COUNT 6.4 10^3/uL (4.3-11.0)
--- NOTE | 2018-07-02 15:03 | ED General ---
General Chief Complaint: General Problems/Pain Stated Complaint: DIZZINESS-WEAKNESS Nursing Triage Note: THE PT IS ASSISTED TO THE ROOM BY WHEELCHAIR. NO DISTRESS IS SEEN ON ARRIVAL. LOC IS NORMAL FOR THE PT. Nursing Sepsis Screen: No Definite Risk Source of Information: Patient Exam Limitations: No Limitations History of Present Illness Date Seen by Provider: Jul 02, 2018 Time Seen by Provider: 14:59 Initial Comments The patient is a 72-year-old white female who presents today with a complaint of generalized weakness she reports that she began feeling confused and off THE beam yesterday afternoon. It has worsened and today she is very poorly functional today. She feels confused and foggy. She reports that this actually began on Meg. She was discovered to be significantly hypertensive at that time and was apparently was given a dose of hydralazine which she believes make things worse. She was admitted overnight to the hospitalist service and her blood pressure improved. Any thoughts of hydralazine were discontinued after 1 dose. She reports that she has not returned fully to her normal state. She also states that she suffers from chronic fatigue syndrome Timing/Duration: 12-24 Hours Allergies and Home Medications Allergies Coded Allergies: Sulfa (Sulfonamide Antibiotics) (Verified Allergy, Unknown, 04/05/18) latex (Verified Allergy, Unknown, 04/05/18) Home Medications Aspirin 81 Mg Tablet.dr, 81 MG PO DAILY, (Reported) Azathioprine 50 Mg Tablet, 75 MG PO DAILY, (Reported) TAKES 1 & 1/2 OF A (50 MG) TABLET Bimatoprost 2.5 Ml Drops, 1 DROP OU HS, (Reported) Clonazepam 0.5 Mg Tablet, 1 MG PO HS, (Reported) TAKES 2 (0.5MG) TABLETS Clopidogrel Bisulfate 75 Mg Tablet, 75 MG PO DAILY, (Reported) Denosumab 60 Mg/1 Ml Disp.syrin, 60 MG SQ EVERY 6 MONTHS, (Reported) Diphenoxylate HCl/Atropine 1 Each Tablet, 1 TAB PO HS PRN for DIARRHEA, ( Reported) Famotidine 20 Mg Tablet, 20 MG PO HS PRN for HEARTBURN, (Reported) Fluoxetine HCl 40 Mg Capsule, 40 MG PO DAILY, (Reported) Folic Acid 1 Mg Tablet, 1 MG PO 1200, (Reported) Losartan Potassium 100 Mg Tablet, 100 MG PO HS, (Reported) Mesalamine 1.2 Gm Tablet.dr, 1.2 GM PO HS, (Reported) [place]-3/Dha/Epa/Fish Oil 1 Each Capsule.dr, 1,400 MG PO 1700, (Reported) Pramipexole Di-HCl 0.5 Mg Tablet, 0.5 MG PO HS, (Reported) Pravastatin Sodium 80 Mg Tablet, 80 MG PO HS, (Reported) Timolol Maleate 5 Ml Drops, 1 DROP OU BID, (Reported) Patient Home Medication List Home Medication List Reviewed: Yes Review of Systems Review of Systems Constitutional: see HPI EENTM: no symptoms reported Respiratory: no symptoms reported Cardiovascular: no symptoms reported Gastrointestinal: no symptoms reported Genitourinary: no symptoms reported Musculoskeletal: no symptoms reported, muscle weakness Skin: no symptoms reported Psychiatric/Neurological: See HPI, Anxiety Hematologic/Lymphatic: No Symptoms Reported Past Zdunqdd-Zbknip-Nkdswn Hx Patient Social History 2nd Hand Smoke Exposure: No Recent Foreign Travel: No Contact w/Someone Who Travel: No Recent Infectious Disease Expo: No Recent Hopitalizations: No Physical Abuse: No Sexual Abuse: No Mistreated: No Fear: No Immunizations Up To Date Tetanus Booster (TDap): Unknown Date of Pneumonia Vaccine: Jan 11, 2017 Date of Influenza Vaccine: Dec 12, 2017 Seasonal Allergies Seasonal Allergies: No Past Medical History Surgeries: Yes Breast, Hysterectomy, Lumpectomy Respiratory: No Currently Using CPAP: No Currently Using BIPAP: No Cardiac: Yes (STENT PLACEMENT) Atrial Fibrillation, Hypertension Neurological: Yes (chronic fatigue syndrome) Stroke, TIA Reproductive Disorders: No Female Reproductive Disorders: Denies Sexually Transmitted Disease: No Genitourinary: No Gastrointestinal: Yes Colitis, Gastroesophageal Reflux, Liver Disease/Jaundice, Hemorrhoids Musculoskeletal: Yes Arthritis Endocrine: Yes (DIET CONTROLLED DM ) Diabetes, Non-Insulin dep, Lupus HEENT: Yes Cataract, Glaucoma Loss of Vision: Bilateral Hearing Impairment: Denies Cancer: No Psychosocial: Yes Anxiety Integumentary: No Blood Disorders: No Adverse Reaction/Blood Tranf: No Family Medical History Completed stroke G8 BROTHER G8 SISTER Hypertension 19 MOTHER Neoplasm G8 BROTHER (colon cancer) Hypertension Physical Exam Vital Signs Vital Signs - First Documented 07/02/18 14:20 Temp 98.4 Pulse 60 Resp 18 B/P (MAP) 192/89 (123) Capillary Refill : Less Than 3 Seconds Height, Weight, BMI Height: 5'5.00" Weight: 170lbs. 2.0oz. [id number]; 30.2 BMI Method:Estimated General Appearance: No Apparent Distress, WD/WN Eyes: Bilateral Eye Normal Inspection HEENT: Normal ENT Inspection Neck: Normal Inspection Respiratory: Chest Non Tender, Lungs Clear, Normal Breath Sounds, No Accessory Muscle Use, No Respiratory Distress Cardiovascular: Regular Rate, Rhythm Gastrointestinal: Normal Bowel Sounds, No Organomegaly, No Pulsatile Mass, Non Tender, Soft Back: Normal Inspection Extremity: Normal Capillary Refill, Normal Inspection, Normal Range of Motion, Non Tender, No Calf Tenderness, No Pedal Edema Neurologic/Psychiatric: Alert, Oriented x3, No Motor/Sensory Deficits, Normal Mood/Affect Skin: Normal Color, Warm/Dry Lymphatic: No Adenopathy Progress/Results/Core Measures Suspected Sepsis Recent Fever Within 48 Hours: No Infection Criteria Present: None New/Unexplained Altered Menta: No Sepsis Screen: No Definite Risk SIRS Temperature:98.4 Pulse: 60 Respiratory Rate: 18 Laboratory Tests 07/02/18 14:55: White Blood Count 6.4 Blood Pressure 192 /89 Mean: 123 Laboratory Tests 07/02/18 14:55: Creatinine 0.90, Platelet Count 213, Total Bilirubin 0.5 Results/Orders Lab Results Laboratory Tests Test 07/02/18 14:33 07/02/18 14:55 Range/Units Urine Color YELLOW Urine Clarity CLEAR Urine pH 6 5-9 Urine Specific [place] 1.015 L 1.016-1.022 Urine Protein NEGATIVE NEGATIVE Urine Glucose (UA) NEGATIVE NEGATIVE Urine Ketones NEGATIVE NEGATIVE Urine Nitrite NEGATIVE NEGATIVE Urine Bilirubin NEGATIVE NEGATIVE Urine Urobilinogen NORMAL NORMAL MG/DL Urine Leukocyte Esterase NEGATIVE NEGATIVE Urine RBC (Auto) NEGATIVE NEGATIVE Urine RBC NONE /HPF Urine WBC NONE /HPF Urine Squamous Epithelial Cells 2-5 /HPF Urine Crystals NONE /LPF Urine Bacteria NEGATIVE /HPF Urine Casts NONE /LPF Urine Mucus NEGATIVE /LPF Urine Culture Indicated NO White Blood Count 6.4 4.3-11.0 10^3/uL Red Blood Count 4.55 4.35-5.85 10^6/uL Hemoglobin 14.3 11.5-16.0 G/DL Hematocrit 42 35-52 % Mean Corpuscular Volume 92 80-99 FL Mean Corpuscular Hemoglobin 31 25-34 PG Mean Corpuscular Hemoglobin Concent 34 32-36 G/DL Red Cell Distribution Width 13.4 10.0-14.5 % Platelet Count 213 130-400 10^3/uL Mean Platelet Volume 8.9 7.4-10.4 FL Neutrophils (%) (Auto) 62 42-75 % Lymphocytes (%) (Auto) 24 12-44 % Monocytes (%) (Auto) 12 0-12 % Eosinophils (%) (Auto) 2 0-10 % Basophils (%) (Auto) 1 0-10 % Neutrophils # (Auto) 4.0 1.8-7.8 X 10^3 Lymphocytes # (Auto) 1.5 1.0-4.0 X 10^3 Monocytes # (Auto) 0.8 0.0-1.0 X 10^3 Eosinophils # (Auto) 0.1 0.0-0.3 10^3/uL Basophils # (Auto) 0.0 0.0-0.1 10^3/uL Sodium Level 136 135-145 MMOL/L Potassium Level 4.1 3.6-5.0 MMOL/L Chloride Level 105 98-107 MMOL/L Carbon Dioxide Level 22 21-32 MMOL/L Anion Gap 9 5-14 MMOL/L Blood Urea Nitrogen 13 7-18 MG/DL Creatinine 0.90 0.60-1.30 MG/DL Estimat Glomerular Filtration Rate > 60 BUN/Creatinine Ratio 14 Glucose Level 93 70-105 MG/DL Calcium Level 9.2 8.5-10.1 MG/DL Corrected Calcium 9.3 8.5-10.1 MG/DL Total Bilirubin 0.5 0.1-1.0 MG/DL Aspartate Amino Transf (AST/SGOT) 30 5-34 U/L Alanine Aminotransferase (ALT/SGPT) 18 0-55 U/L Alkaline Phosphatase 48 40-136 U/L Total Protein 6.6 6.4-8.2 GM/DL Albumin 3.9 3.2-4.5 GM/DL My Orders Orders - DANIELLA DESAI MD Cbc With Automated Diff (07/02/18 14:10) Comprehensive Metabolic Panel (07/02/18 14:10) Ua Culture If Indicated (07/02/18 14:10) Vital Signs/I&O 07/02/18 14:20 Temp 98.4 Pulse 60 Resp 18 B/P (MAP) 192/89 (123) Capillary Refill : Less Than 3 Seconds Blood Pressure Mean: 123 Departure Communication (Admissions) CT scan shows a stable degree of encephalomalacia as compared to her previous CT scan. Impression Primary Impression: encephalomalacia, stable Disposition: 01 HOME, SELF-CARE Condition: Stable/Unchanged Departure-Patient Inst. Decision time for Depature: 16:44 Referrals: CHRISTINE LUNDY MD (PCP/Family) Primary Care Physician Add. Discharge Instructions: All discharge instructions reviewed with patient and/or family. Voiced understanding. See your provider if further problems DANIELLA DESAI MD Jul 02, 2018 15:03
--- OUTSIDE RECORDS SUMMARY | 2018-07-02 15:04 | XMS REPORT | Continuity of Care Document ---
Author Author [facility] Organization [facility] Address Unknown Phone Unavailable Allergies Active Description Code Type Severity Reaction Onset Reported/Identified Relationship to Patient Clinical Status Yes No Allergy Information Available [id number] Drug Allergy Unknown N/A 2016 Yes latex [id number] Drug Allergy Unknown N/A 04/05/2018 Yes Sulfa (Sulfonamide Antibiotics) [id number] Drug Allergy Unknown N/A 2017 Medications There is no data. Problems Date Dx Coded Attending Type Code Diagnosis Diagnosed By 02/11/2010 Ot 530.81 02/11/2010 Ot 535.40 02/28/2010 Ot 575.11 11/26/2010 Ot 558.9 11/26/2010 Ot 783.21 01/19/2011 Ot 787.91 DIARRHEA 03/02/2011 Ot 787.91 DIARRHEA 04/21/2014 MIRIAN ARNOLD MD Ot 401.9 04/21/2014 MIRIAN ARNODL MD Ot 780.2 04/21/2014 MIRIAN ARNOLD MD [...] MIRIAN Israel Ot 780.4 03/29/2015 CLAYTON KANG, MIRINA [place] Ot V76.12 04/19/2015 LILIAN DOBSON Ot Z12.31 [...] AND CEREB INFRC W 12/04/2016 LILIAN DOBSON RADIOLOGICAL HEALTH SPECIALIST Ot I63.9 CEREBRAL INFARCTION, UNSPECIFIED 12/08/2016 LILIAN DOBSON RADIOLOGICAL HEALTH SPECIALIST Ot I63.9 CEREBRAL INFARCTION, UNSPECIFIED 01/10/2017 LILIAN DOBSON RADIOLOGICAL HEALTH SPECIALIST Ot 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 01/10/2017 LILIAN DOBSONP Ot K21.9 GASTRO-ESOPHAGEAL REFLUX DISEASE WITHOUT 01/14/2017 LILIAN DOBSON RADIOLOGICAL HEALTH SPECIALIST Ot I63.9 CEREBRAL INFARCTION, UNSPECIFIED 02/13/2017 LILIAN DOBSON RADIOLOGICAL HEALTH SPECIALIST Ot I63.9 CEREBRAL INFARCTION, UNSPECIFIED 03/23/2017 IVAN [...] (PRIVATE 05/27/2017 STEPHANE LEHMAN MD Ot Z79.02 CARE HOME (CURRENT) USE OF ANTITHROMBOTI 05/27/2017 STEPHANE LEHMAN MD Ot Z79.82 CARE HOME (CURRENT) USE OF ASPIRIN 05/27/2017 STEPHANE LEHMAN [...] OF DIS OF THE BLD/BLD-FORM 10/08/2017 MELOTABITHA BUTTON PUSHER Ot Z86.73 PRSNL HX OF TIA (TIA), [...] FOR OTHER PREPROCEDURAL EXAMIN 10/16/2017 TABITHA ALEJO BUTTON PUSHER Ot Z86.2 PRSNL HISTORY OF DIS OF THE BLD/BLD-FORM 10/16/2017 TABITHA ALEJO BUTTON PUSHER Ot Z86.73 PRSNL HX OF TIA (TIA), AND CEREB INFRC W 10/16/2017 TABITHA ALEJO APRN Ot 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 MECHANISM 10/16/2017 TABITHA ALEJO BUTTON PUSHER Ot I63.9 CEREBRAL INFARCTION, UNSPECIFIED 10/19/2017 TABITHA [...] ERUPTION 12/23/2017 ZENAIDA NUR MD Ot 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 12/23/2017 ZENAIDA NUR MD Ot Z79.82 CARE HOME (CURRENT) USE OF ASPIRIN 12/23/2017 ZENAIDA NUR [...] Ot I10 ESSENTIAL (PRIMARY) HYPERTENSION 12/25/2017 ZENAIDA NUR MD Ot I48.91 UNSPECIFIED ATRIAL FIBRILLATION 12/25/2017 ZENAIDA NUR MD Ot K21.9 GASTRO-ESOPHAGEAL REFLUX DISEASE WITHOUT 12/25/2017 ZENAIDA NUR MD Ot R21 RASH AND OTHER NONSPECIFIC SKIN ERUPTION 12/25/2017 ZENAIDA NUR MD Ot Z79.02 CARE HOME (CURRENT) USE OF ANTITHROMBOTI 12/25/2017 ZENAIDA NUR MD Ot Z79.82 CARE HOME (CURRENT) USE OF ASPIRIN 12/25/2017 ZENAIDA NUR [...] AND OTHER NONSPECIFIC SKIN ERUPTION 12/29/2017 ZENAIDA NUR MD Ot 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 12/29/2017 ZENAIDA NUR MD Ot Z79.82 CARE HOME (CURRENT) USE OF ASPIRIN 12/29/2017 ZENAIDA NUR [...] Ot Z95.5 PRESENCE OF CORONARY ANGIOPLASTY IMPLANT 04/06/2018 MIRIAN ARNOLD MD, Ot E11.9 TYPE 2 DIABETES MELLITUS WITHOUT COMPLIC 04/06/2018 MIRIAN ARNOLD MD, Ot F41.9 ANXIETY DISORDER, UNSPECIFIED 04/06/2018 MIRIAN ARNOLD MD Ot G81.91 HEMIPLEGIA, UNSPECIFIED AFFECTING RIGHT 04/06/2018 MIRIAN ARNOLD MD Ot I16.0 HYPERTENSIVE URGENCY 04/06/2018 MIRIAN ARNOLD MD Ot I48.91 UNSPECIFIED ATRIAL FIBRILLATION 04/06/2018 MIRIAN ARNOLD MD Ot K21.9 GASTRO-ESOPHAGEAL REFLUX DISEASE WITHOUT 04/06/2018 MIRIAN ARNOLD MD Ot R23.2 FLUSHING 04/06/2018 MIRIAN ARNOLD MD Ot R53.82 CHRONIC FATIGUE, UNSPECIFIED 04/06/2018 MIRIAN ARNOLD MD Ot T46.5X5A ADVERSE EFFECT OF OTHER ANTIHYPERTENSIVE 04/06/2018 MIRIAN ARNOLD MD Ot Z79.82 CARE HOME (CURRENT) USE OF ASPIRIN 04/06/2018 MIRIAN ARNOLD MD Ot Z79.899 OTHER CHORE WORKER (CURRENT) DRUG THERAPY 04/06/2018 MIRIAN ARNOLD MD Ot Z86.73 PRSNL HX OF TIA (TIA), AND CEREB INFRC W 04/06/2018 MIRIAN ARNOLD MD Ot E11.9 TYPE 2 DIABETES MELLITUS WITHOUT COMPLIC 04/06/2018 MIRIAN ARNOLD MD, Ot F41.9 ANXIETY DISORDER, UNSPECIFIED 04/06/2018 MIRIAN ARNOLD MD Ot G81.91 HEMIPLEGIA, UNSPECIFIED AFFECTING RIGHT 04/06/2018 MIRIAN ARNOLD MD Ot I16.0 HYPERTENSIVE URGENCY 04/06/2018 MIRIAN ARNOLD MD Ot I48.91 UNSPECIFIED ATRIAL FIBRILLATION 04/06/2018 MIRIAN ARNOLD MD, Ot K21.9 GASTRO-ESOPHAGEAL REFLUX DISEASE WITHOUT 04/06/2018 MIRIAN ARNOLD MD Ot R23.2 FLUSHING 04/06/2018 MIRIAN ARNOLD MD Ot R53.82 CHRONIC FATIGUE, UNSPECIFIED 04/06/2018 MIRIAN ARNOLD MD Ot T46.5X5A ADVERSE EFFECT OF OTHER ANTIHYPERTENSIVE 04/06/2018 MIRIAN ARNOLD MD Ot Z79.82 CARE HOME (CURRENT) USE OF ASPIRIN 04/06/2018 MIRIAN ARNOLD MD, Ot Z79.899 OTHER CARE HOME (CURRENT) DRUG THERAPY 04/06/2018 MIRIAN ARNOLD MD, Ot Z86.73 PRSNL HX OF TIA (TIA), AND CEREB INFRC W 06/18/2018 CHAPO MAYS Ot E66.9 OBESITY, UNSPECIFIED 06/18/2018 CHAPO MAYS Ot E78.2 MIXED HYPERLIPIDEMIA 06/18/2018 CHAPO MAYS Ot I08.0 RHEUMATIC DISORDERS OF BOTH MITRAL AND A 06/18/2018 CHAPO MAYS Ot I10 ESSENTIAL (PRIMARY) HYPERTENSION 06/18/2018 CHAPO MAYS Ot I63.9 CEREBRAL INFARCTION, UNSPECIFIED 06/23/2018 CHAPO MAYS Ot E66.9 OBESITY, UNSPECIFIED 06/23/2018 CHAPO MAYS Ot E78.2 MIXED HYPERLIPIDEMIA 06/23/2018 CHAPO MAYS Ot I08.0 RHEUMATIC DISORDERS OF BOTH MITRAL AND A 06/23/2018 CHAPO MAYS Ot I10 ESSENTIAL (PRIMARY) HYPERTENSION 06/23/2018 CHAPO MAYS Ot I63.9 CEREBRAL INFARCTION, UNSPECIFIED 07/02/2018 CHRISTINE LUNDY MD Ot R53.1 WEAKNESS Procedures There is no data. Results Test [...] fluid protein measurement (mass/volume) 79 mg/dL 15-40 PT panel in platelet poor plasma by coagulation assay - 04/05/18 13:00 Prothrombin time (PT) in platelet poor plasma by coagulation assay 11.8 s 12.2-14.7 INR in platelet poor plasma or blood by coagulation assay 0.9 0.8-1.4 Activated partial thromboplastin time (aPTT) in platelet poor plasma bycoagulation assay - 04/05/18 13:00 Activated partial thromboplastin time (aPTT) in platelet poor plasma bycoagulation assay 25 s 24-35 Fibrin D-dimer FEU measurement in platelet poor plasma (mass/volume) - 13:00 Fibrin D-dimer FEU measurement in platelet poor plasma (mass/volume) 0.39 ug/mL 0.00-0.49 Complete blood count (CBC) with automated white blood cell (WBC) differential - 04/05/18 13:07 Blood leukocytes automated count (number/volume) 6.5 10*3/uL 4.3-11.0 Blood erythrocytes automated count (number/volume) 4.48 10*6/uL 4.35-5.85 Venous blood hemoglobin measurement (mass/volume) 14.5 g/dL 11.5-16.0 Blood hematocrit (volume fraction) 42 % 35-52 Automated erythrocyte mean corpuscular volume 93 [foz_us] 80-99 Automated erythrocyte mean corpuscular hemoglobin (mass per erythrocyte) 32 pg 25-34 Automated erythrocyte mean corpuscular hemoglobin concentration measurement ( mass/volume) 35 g/dL 32-36 Automated erythrocyte distribution width ratio 13.2 % 10.0-14.5 Automated blood platelet count (count/volume) 191 10*3/uL 130-400 Automated blood platelet mean volume measurement 8.7 [foz_us] 7.4-10.4 Automated blood neutrophils/100 leukocytes 69 % 42-75 Automated blood lymphocytes/100 leukocytes 21 % 12-44 Blood monocytes/100 leukocytes 9 % 0-12 Automated blood eosinophils/100 leukocytes 1 % 0-10 Automated blood basophils/100 leukocytes 1 % 0-10 Blood neutrophils automated count (number/volume) 4.5 10*3 1.8-7.8 Blood lymphocytes automated count (number/volume) 1.3 10*3 1.0-4.0 Blood monocytes automated count (number/volume) 0.6 10*3 0.0-1.0 Automated eosinophil count 0.1 10*3/uL 0.0-0.3 Automated blood basophil count (count/volume) 0.0 10*3/uL 0.0-0.1 Comprehensive metabolic panel - 04/05/18 13:07 Serum or plasma sodium measurement (moles/volume) 136 mmol/L 135-145 Serum or plasma potassium measurement (moles/volume) 4.2 mmol/L 3.6-5.0 Serum or plasma chloride measurement (moles/volume) 107 mmol/L 98-107 Carbon dioxide 19 mmol/L 21-32 Serum or plasma anion gap determination (moles/volume) 10 mmol/L 5-14 Serum or plasma urea nitrogen measurement (mass/volume) 12 mg/dL 7-18 Serum or plasma creatinine measurement (mass/volume) 0.87 mg/dL 0.60-1.30 Serum or plasma urea nitrogen/creatinine mass ratio 14 NRG Serum or plasma creatinine measurement with calculation of estimated glomerular filtration rate > NRG Serum or plasma glucose measurement (mass/volume) 98 mg/dL 70-105 Serum or plasma calcium measurement (mass/volume) 8.8 mg/dL 8.5-10.1 Serum or plasma total bilirubin measurement (mass/volume) 0.4 mg/dL 0.1-1.0 Serum or plasma alkaline phosphatase measurement (enzymatic activity/volume) 42 U/L 40-136 Serum or plasma aspartate aminotransferase measurement (enzymatic activity/ volume) 47 U/L 5-34 Serum or plasma alanine aminotransferase measurement (enzymatic activity/volume ) 31 U/L 0-55 Serum or plasma protein measurement (mass/volume) 7.1 g/dL 6.4-8.2 Serum or plasma albumin measurement (mass/volume) 4.2 g/dL 3.2-4.5 CALCIUM CORRECTED 8.6 mg/dL 8.5-10.1 Serum or plasma troponin i.cardiac measurement (mass/volume) - 04/05/18 13:07 Serum or plasma troponin i.cardiac measurement (mass/volume) < ng/ mL <0.30 Complete urinalysis with reflex to culture - 04/05/18 13:45 Urine color determination YELLOW NRG Urine clarity determination CLEAR NRG Urine pH measurement by test strip 8 5-9 Specific gravity of urine by test strip 1.010 1.016- 1.022 Urine protein assay by test [...] count by microscopy (number/high power field ) RARE NRG Bacteria detection in urine sediment by light microscopy NEGATIVE NRG Squamous epithelial cells detection in urine sediment by light microscopy 0-2 NRG Crystals detection in urine sediment by light microscopy NONE NRG Casts detection in urine sediment by light microscopy NONE NRG Mucus detection in urine sediment by light microscopy NEGATIVE NRG Complete urinalysis with reflex to culture NO NRG Capillary blood glucose measurement by glucometer (mass/volume) - 04/05/18 16: 53 Capillary blood glucose measurement by glucometer (mass/volume) 104 mg/dL 70-110 Lipid 1996 panel - 04/06/18 03:17 Serum or plasma triglyceride measurement (mass/volume) 70 mg/dL <150 Serum or plasma cholesterol measurement (mass/volume) 206 mg/dL < 200 Serum or plasma cholesterol in HDL measurement (mass/volume) 64 mg/ dL 40-60 Cholesterol in LDL [mass/volume] in serum or plasma by direct assay 131 mg/dL 1-129 Serum or plasma cholesterol in VLDL measurement (mass/volume) 14 mg/ dL 5-40 Encounters ACCT No. Visit Date/Time Discharge Status Pt. Type Provider Facility Loc./Unit Complaint [id number] 06/17/2018 10:42:00 06/17/2018 23:59:59 CLS Outpatient CHAPO MAYS [facility] CARD CVA,HTN [id number] 04/05/2018 16:57:00 04/06/2018 18:00:00 DIS Inpatient CLAYTON KANG, MIRIAN Israel [facility] ICU HYPERTENSION,R ARM AND LEG WEAKNESS [id number] 12/23/2017 10:53:00 12/23/2017 11:50:00 DIS Emergency ZENAIDA NUR MD [facility] ER ALLERGIC REACTION [id number] 11/09/2017 09:57:00 11/09/2017 23:59:59 CLS Outpatient CHRISTINE LUNDY MD [facility] REHAB UPPER AND LOWER EXT WEAKNESS; HX OF STROKE [id number] 10/16/2017 12:35:00 10/16/2017 15:45:00 DIS [facility] [id number] 10/07/2017 08:31:00 10/07/2017 23:59:59 CLS Outpatient TABITHA ALEJO APRN [facility] RAD HX STROKE,AUTO IMMUNE [id number] 05/24/2017 12:30:00 05/27/2017 15:15:00 DIS Inpatient FALLON KANG, STEPHANE Sheikh [facility] [address] POSS CVA/TIA [id number] 02/25/2017 08:36:00 02/25/2017 23:59:59 CLS Outpatient IVAN BAH MD [facility] CATH CRYPTOGENIC CVA [id number] 02/13/2017 13:30:00 02/13/2017 15:33:00 DIS Outpatient LILIAN DOBSON [facility] REHAB CVA;REFLUX, DYSPHAGIA POST STROKE [id number] 01/07/2017 09:56:00 01/10/2017 00:01:00 DIS Outpatient LILIAN DOBSON [facility] REHAB CVA;REFLUX, DYSPHAGIA POST STROKE [id number] 11/20/2016 09:52:00 11/21/2016 11:20:00 DIS Inpatient CHRISTINE LUNDY MD [facility] [address] AMS [id number] 06/04/2016 14:24:00 06/04/2016 23:59:59 CLS Outpatient TABITHA ALEJO APRN [facility] RAD SCREENING [id number] 03/29/2015 12:47:00 03/29/2015 23:59:59 CLS Outpatient LILIAN DOBSON [facility] RAD ROUTINE SCREENING [id number] 03/31/2014 13:56:00 03/31/2014 23:59:59 CLS Outpatient MIRIAN ARNOLD MD [facility] RAD HTN,SYNCOPE,VERTIGO, SCREENING [id number] 03/28/2013 08:54:00 03/28/2013 23:59:59 CLS Outpatient MIRIAN ARNOLD MD [facility] RAD SCREENING [id number] 07/02/2018 14:08:00 ACT Emergency ZENAIDA NUR MD [facility] ER DIZZINESS-WEAKNESS [id number] 06/30/2018 12:56:00 ACT Outpatient CHRISTINE LUNDY MD [facility] [id number] 05/04/2012 08:32:00 Document Registration [id number] 03/10/2012 09:19:00 Document Registration [id number] 04/08/2011 06:10:00 Document Registration [id number] 03/03/2011 00:00:00 Document Registration [id number] 02/17/2011 08:47:00 Document Registration [id number] 01/20/2011 00:00:00 Document Registration [id number] 12/03/2010 10:49:00 Document Registration [id number] 11/26/2010 08:55:00 Document Registration [id number] 10/22/2010 10:15:00 Document Registration [id number] 02/28/2010 05:38:00 Document Registration [id number] 02/25/2010 09:09:00 Document Registration [id number] 02/12/2010 09:01:00 Document Registration [id number] 02/11/2010 07:52:00 Document Registration [id number] 02/05/2010 08:40:00 Document Registration
[2018-07-02 15:19] LABS: ALANINE AMINOTRANSFERASE 18 U/L (0-55); ALBUMIN 3.9 GM/DL (3.2-4.5); ALKALINE PHOSPHATASE 48 U/L (40-136); BILIRUBIN,TOTAL 0.5 MG/DL (0.1-1.0); BUN/CREATININE RATIO 14; CALCIUM 9.2 MG/DL (8.5-10.1); CARBON DIOXIDE 22 MMOL/L (21-32); CHLORIDE 105 MMOL/L (98-107); GFR ESTIMATED > 60; GLUCOSE 93 MG/DL (70-105); POTASSIUM 4.1 MMOL/L (3.6-5.0); SODIUM 136 MMOL/L (135-145); TOTAL PROTEIN 6.6 GM/DL (6.4-8.2)
--- NOTE | 2018-07-02 16:01 | Diagnostic Imaging Report ---
PROCEDURE: CT head without contrast. TECHNIQUE: Multiple contiguous axial images were obtained through the brain without the use of intravenous contrast. Auto Exposure Controls were utilized during the CT exam to meet ALARA standards for radiation dose reduction. INDICATION: Dizziness, weakness and discoordination. COMPARISON: Comparison is made to study of 04/05/2018. FINDINGS: Ventricles and sulci are stable in size with persistent encephalomalacia in the deep white matter of the right parietal lobe. There is also low density again seen within the right occipital pole. There is no evidence of acute hemorrhage or new infarct. Calvarium is intact and the visualized paranasal sinuses are clear. There is atherosclerotic calcification within distal internal carotid and vertebral arteries. IMPRESSION: Stable CT head without acute abnormality detected. Dictated by: Dictated on workstation # [id number]
[2018-07-02 16:55] VITALS: BP 190/88
== END 2018-07-02 16:58 | disposition home or self-care (01) ==
LOC: EDUNIT# 14:06 → ER 14:08
DX: G93.89 Other specified disorders of brain (principal); I48.91 Unspecified atrial fibrillation; I10 Essential (primary) hypertension; K21.9 Gastro-esophageal reflux disease without esophagitis; E11.9 Type 2 diabetes mellitus without complications; F41.9 Anxiety disorder, unspecified; Z87.19 Personal history of other diseases of the digestive system; Z86.73 Personal history of transient ischemic attack (TIA), and cerebral infarction without residual deficits; Z88.2 Allergy status to sulfonamides; Z80.0 Family history of malignant neoplasm of digestive organs; Z91.040 Latex allergy status; Z79.82 Long term (current) use of aspirin; Z79.02 Long term (current) use of antithrombotics/antiplatelets; Z90.710 Acquired absence of both cervix and uterus; Z98.890 Other specified postprocedural states; Z95.5 Presence of coronary angioplasty implant and graft
CPT/HCPCS: 36415; 70450; 80053; 81000; 85025

== ENCOUNTER 2018-07-05 13:05 | Outpatient (RCR) | payer MEDICARE | END 2018-07-05 13:38 | disposition home or self-care (01) | PROVIDERS: ATTEND Family Medicine | DX: R53.1 Weakness (principal) ==

== ENCOUNTER → 2019-01-20 | Outpatient (CLI) | payer MEDICARE ==
--- NOTE | 2019-01-21 10:53 | Diagnostic Imaging Report ---
INDICATION: Routine screening. Comparison is made with prior mammogram from 06/04/2016 and 03/29/2015. 2-D and 3-D bilateral screening mammography was performed with CAD. Both breasts remain heterogeneously dense, limiting the sensitivity of mammography. Cardiac monitoring device overlies the left breast. There are benign calcifications bilaterally. No mass or malignant appearing microcalcifications are seen. Axillae are unremarkable. IMPRESSION: BI-RADS Category 2 No mammographic features suspicious for malignancy are identified. ACR BI-RADS Category 2: Benign findings. Result letter will be mailed to the patient. Note: At least 10% of breast cancer is not imaged by mammography. Dictated by: Dictated on workstation # [id number]
== END ==
LOC: RAD 14:43
PROVIDERS: ATTEND Family Medicine
DX: Z12.31 Encounter for screening mammogram for malignant neoplasm of breast (principal)
CPT/HCPCS: 77067

== ENCOUNTER → 2019-09-22 | Outpatient (CLI) | payer MEDICARE ==
[~2019-09-22] MED LIST changes: -CLON0.5T13 PO; +CLON0.5T4 PO
== END ==
LOC: CARD 11:12
PROVIDERS: ATTEND Internal Medicine Cardiovascular Disease
DX: I35.1 Nonrheumatic aortic (valve) insufficiency (principal); I63.9 Cerebral infarction, unspecified; I10 Essential (primary) hypertension; E78.2 Mixed hyperlipidemia; Z45.09 Encounter for adjustment and management of other cardiac device
CPT/HCPCS: 93306

== ENCOUNTER 2019-10-13 11:15 | Outpatient (RCR) | payer MEDICARE | END 2019-10-13 14:15 | disposition home or self-care (01) | PROVIDERS: ATTEND Nurse Practitioner Family | DX: R53.1 Weakness (principal); R29.6 Repeated falls ==

== ENCOUNTER → 2020-03-19 | Outpatient (CLI) | payer MEDICARE ==
[~2020-03-19] MED LIST changes: +ASPI-1238 PO; -ASPI-983 PO
--- NOTE | 2020-03-19 12:45 | Diagnostic Imaging Report ---
INDICATION: Routine screening. COMPARISON: 01/20/2019 and 06/04/2016. TECHNIQUE: 2D and 3D bilateral screening mammography was performed with CAD. FINDINGS: Both breasts are heterogeneously dense, limiting the sensitivity of mammography. Scattered benign calcifications are noted. A cardiac monitoring device over the medial left breast is noted. No mass or malignant appearing microcalcifications are seen. The axillae are unremarkable. IMPRESSION: No mammographic features suspicious for malignancy are identified. ACR BI-RADS Category 2: Benign findings. Result letter will be mailed to the patient. Note: At least 10% of breast cancer is not imaged by mammography. Dictated by: Dictated on workstation # [id number]
== END ==
LOC: RAD 10:59
PROVIDERS: ATTEND Family Medicine
DX: Z12.31 Encounter for screening mammogram for malignant neoplasm of breast (principal)
CPT/HCPCS: 77063; 77067

== ENCOUNTER → 2020-05-10 | Outpatient (CLI) | payer MEDICARE ==
[~2020-05-10] MED LIST changes: -FOLI1TAB24 PO; +FOLI1TAB33 PO
--- NOTE | 2020-05-10 13:57 | Diagnostic Imaging Report ---
EXAMINATION: US Retroperitoneal Complete. TECHNIQUE: Multiple real-time grayscale images were obtained over the kidneys in various projections bilaterally. HISTORY: CKD STAGE 3B. COMPARISON: None available. FINDINGS: The kidneys are slightly obscured from overlying bowel gas and shadowing artifact. The visualized portions appear normal in cortical thickness and echogenicity without hydronephrosis. The right kidney measures 9.1 x 3.4 x 4.0 cm. The left kidney measures 8.3 x 4.2 x 4.2 cm. The urinary bladder is unremarkable. Bilateral ureteral jets are seen. IMPRESSION: 1. Unremarkable kidneys without hydronephrosis. Dictated by: Dictated on workstation # [id number]
== END ==
LOC: RAD 12:30
PROVIDERS: ATTEND Internal Medicine Nephrology
DX: N18.32 Chronic kidney disease, stage 3b (principal)
CPT/HCPCS: 76770

== ENCOUNTER → 2020-09-12 | Outpatient (CLI) | payer MEDICARE ==
[~2020-09-12] MED LIST changes: +CATHETER FLUSH 10 ML SYR IV PRN; +REGADENOSON 0.4 MG/5 ML SYR (LEXISCAN) IV ONE
[2020-09-12 13:55] VITALS: BP 152/72
--- NOTE | 2020-09-12 15:25 | Cardiology Stress Test Report ---
Stress Test Report Date of Procedure/Referring: Date of Procedure: Sep 12, 2020 Paulette Mayo Admitting Physician Maria Luisa Echeverria MD Indications: HTN Baseline Blood Pressure: Blood Pressure Systolic: 152 Blood Pressure Diastolic: 72 Baseline Vitals Vital Signs Date Time Temp Pulse Resp B/P (MAP) Pulse Ox O2 Delivery O2 Flow Rate FiO2 09/12/20 13:55 56 152/72 (98) Baseline EKG: Baseline EKG: Normal sinus rhythm Summary After explaining the procedure to the patient, she signed a consent and then brought to the stress nuclear laboratory. Patient received 0.4 mg Lexiscan for stress test, ECG, heart rate and blood pressure were monitored continuously. Resting and stress dose of radio tracer were injected, imaging was acquired and reviewed in short axis, horizontal long axis and vertical long axis views. TID: 1.02 SSS: 3 SDS: 3 EF: 82 1. Patient tolerated Lexiscan well 2. No significant ischemia or infarction on SPECT images 3. Normal left ventricular size, EF 82% IVAN BAH MD Sep 12, 2020 15:25
== END ==
LOC: CARD 12:30
PROVIDERS: ATTEND Physician Assistant
DX: I10 Essential (primary) hypertension (principal)
CPT/HCPCS: 78452; 93017; A9502

== ENCOUNTER 2021-01-29 19:56 | Emergency (ER) | payer MEDICARE ==
[~2021-01-29] VITALS: Ht 157.5 cm; Wt 54.6 kg
[~2021-01-29 19:56] MED LIST changes: -CATHETER FLUSH 10 ML SYR IV PRN; -REGADENOSON 0.4 MG/5 ML SYR (LEXISCAN) IV ONE
[2021-01-29 20:28] LABS: BILIRUBIN,URINE NEGATIVE (NEGATIVE); CLARITY,URINE CLEAR; COLOR,URINE YELLOW; GLUCOSE, URINE (UA) NEGATIVE (NEGATIVE); KETONES,URINE NEGATIVE (NEGATIVE); LEUKOCYTE ESTERASE ,URINE TRACE (NEGATIVE); NITRITE,URINE NEGATIVE (NEGATIVE); PROTEIN,URINE NEGATIVE (NEGATIVE)
[2021-01-29 20:48] LABS: BASOPHILS # (AUTO) 0.1 10^3/uL (0.0-0.1); BASOPHILS % (AUTO) 0 % (0-10); EOSINOPHILS % (AUTO) 0 % (0-10); HEMATOCRIT 37 % (35-52); HEMOGLOBIN 12.4 g/dL (11.5-16.0); LYMPHOCYTES % (AUTO) 9 % (12-44); MEAN CORPUSCULAR HEMOGLOBIN 32 pg (25-34); MEAN CORPUSCULAR HGB CONC 34 g/dL (32-36); MEAN CORPUSCULAR VOLUME 94 fL (80-99); MEAN PLATELET VOLUME 9.3 fL (9.0-12.2); MONOCYTES # (AUTO) 0.6 10^3/uL (0.0-1.0); MONOCYTES % (AUTO) 5 % (0-12); NEUTROPHILS # (AUTO) 10.4 10^3/uL (1.8-7.8); NEUTROPHILS % (AUTO) 85 % (42-75); PLATELET COUNT 256 10^3/uL (130-400); WHITE BLOOD COUNT 12.1 10^3/uL (4.3-11.0)
[2021-01-29 21:03] LABS: ALBUMIN 4.6 GM/DL (3.2-4.5); CHLORIDE 101 MMOL/L (98-107); POTASSIUM 3.8 MMOL/L (3.6-5.0); SODIUM 140 MMOL/L (135-145)
[2021-01-29 21:05] LABS: CALCIUM 10.3 MG/DL (8.5-10.1)
[2021-01-29 21:06] LABS: GLUCOSE 123 MG/DL (70-105); TOTAL PROTEIN 8.2 GM/DL (6.4-8.2)
[2021-01-29 21:07] LABS: CARBON DIOXIDE 25 MMOL/L (21-32)
[2021-01-29 21:08] LABS: BILIRUBIN,TOTAL 0.6 MG/DL (0.1-1.0)
[2021-01-29 21:09] LABS: ALKALINE PHOSPHATASE 130 U/L (40-136); CREATININE SERUM 1.06 MG/DL (0.60-1.30); GFR ESTIMATED 51
[2021-01-29 21:10] LABS: AMORPHOUS SEDIMENT,UR RARE AMOR URATES /LPF; BACTERIA,URINE TRACE /HPF; RBC,URINE 0-2 /HPF
[2021-01-29 21:10] LABS: BUN/CREATININE RATIO 23
[2021-01-29 21:12] LABS: ALANINE AMINOTRANSFERASE 16 U/L (0-55)
--- NOTE | 2021-01-29 21:14 | ED Back Pain ---
General Chief Complaint: Back Problems Stated Complaint: LOWER BACK/KIDNEY PAIN Nursing Triage Note: TO ED VIA POV AND W/C TO ROOM 3. PT USES CANE. PT C/O RIGHT AND LEFT SIDE LOWER BACK PAIN X3 DAYS. PT HAS NOT BEEN TO PCP AND HAS NOT TAKEN ANY PAIN RELIEF MEDICATIONS. PT STATES HEATING PAD HELPS WITH PAIN AND LAYING DOWN MAKES IT WORSE. DENIES FALL/INJURY. History of Present Illness Date Seen by Provider: Jan 29, 2021 Time Seen by Provider: 20:10 Initial Comments 75-year-old female presents for low back pain. She states its been present for at least 3 days. She has not seen her primary care provider or taken any srmf-osp-vhyeaac medicines to help with her symptoms. She has had a history of diabetes and kidney disease. She denies any injuries to her low back, she has no history of kidney stones. She has had a stroke in the past. And uses a walker to ambulate. She has mild discomfort that radiates down into her buttocks and upper thighs. No paresthesias or radicular symptoms in her lower extremities. She denies any bowel or bladder incontinence or retention. Timing/Duration: 3-4 Days Severity: Moderate Pain/Injury Location: Back Radiation: Buttocks, Upper Legs Associated Symptoms: No muscle spasms, No numbness in legs/feet, No tingling in legs/feet, No sensory/motor loss; lower back pain; No loss of bladder control, No loss of bowel control Allergies and Home Medications Allergies Coded Allergies: Sulfa (Sulfonamide Antibiotics) (Verified Allergy, Unknown, 04/05/18) Thiazides (Verified Allergy, Unknown, 01/29/21) amlodipine (Verified Allergy, Unknown, 01/29/21) hydralazine (Verified Allergy, Unknown, 01/29/21) latex (Verified Allergy, Unknown, 04/05/18) Patient Home Medication List Home Medication List Reviewed: Yes Aspirin (Aspirin EC) 81 Mg Tablet.dr, 81 MG PO DAILY, (Reported) Entered as Reported by: ZANE MCFARLAND on 05/24/17 172 Azathioprine (Azathioprine) 50 Mg Tablet, 75 MG PO DAILY, (Reported) Entered as Reported by: ZANE MCFARLAND on 05/24/17 181 Bimatoprost (Lumigan) 2.5 Ml Drops, 1 DROP OU HS, (Reported) Entered as Reported by: ROSALINDA HERNANDEZ on 11/19/16 135 Clonazepam (Clonazepam) 0.5 Mg Tablet, 1 MG PO HS, (Reported) Entered as Reported by: ROSALINDA HERNANDEZ on 11/19/16 135 Clopidogrel Bisulfate (Clopidogrel) 75 Mg Tablet, 75 MG PO DAILY, (Reported) Entered as Reported by: ZANE MCFARLAND on 05/24/17 172 Denosumab (Prolia) 60 Mg/1 Ml Disp.syrin, 60 MG SQ EVERY 6 MONTHS, (Reported) Entered as Reported by: ROSALINDA HERNANDEZ on 11/19/16 135 Diphenoxylate HCl/Atropine (Diphenoxylate-Atrop 2.5-0.025) 1 Each Tablet, 1 TAB PO HS PRN for DIARRHEA, (Reported) Entered as Reported by: ROSALINDA HERNANDEZ on 11/19/16 135 Famotidine (Pepcid) 20 Mg Tablet, 20 MG PO HS PRN for HEARTBURN, (Reported) Entered as Reported by: ZANE MCFARLAND on 05/24/17 1848 Fluoxetine HCl (Fluoxetine HCl) 40 Mg Capsule, 40 MG PO DAILY, (Reported) Entered as Reported by: ZANE MCFARLAND on 05/24/17 172 Folic Acid (Folic Acid) 1 Mg Tablet, 1 MG PO 1200, (Reported) Entered as Reported by: ZANE MCFARLAND on 05/24/17 1820 Losartan Potassium (Losartan Potassium) 100 Mg Tablet, 100 MG PO HS, (Reported) Entered as Reported by: ROSALINDA HERNANDEZ on 11/19/16 135 Mesalamine (Lialda) 1.2 Gm Tablet.dr, 1.2 GM PO HS, (Reported) Entered as Reported by: ROSALINDA HERNANDEZ on 11/19/16 135 Mchenry-3/Dha/Epa/Fish Oil (Fish Oil 1,400 mg Softgel) 1 Each Capsule.dr, 1,400 MG PO 1700, (Reported) Entered as Reported by: ROSALINDA HERNANDEZ on 11/19/16 135 Pramipexole Di-HCl (Pramipexole Dihydrochloride) 0.5 Mg Tablet, 0.5 MG PO HS, (Reported) Entered as Reported by: ROSALINDA HERNANDEZ on 11/19/16 135 Pravastatin Sodium (Pravastatin Sodium) 80 Mg Tablet, 80 MG PO HS, (Reported) Entered as Reported by: ROSALINDA HERNANDEZ on 11/19/16 1356 Timolol Maleate (Timolol Maleate 0.5%) 5 Ml Drops, 1 DROP OU BID, (Reported) Entered as Reported by: ROSALINDA HERNANDEZ on 11/19/16 1356 Tramadol HCl (Tramadol HCl) 50 Mg Tablet, 50 MG PO Q6H PRN for PAIN Prescribed by: ANNE-MARIE ALVA on 01/29/211 Review of Systems Constitutional: no symptoms reported, see HPI Gastrointestinal: no symptoms reported, see HPI Musculoskeletal: see HPI, back pain, muscle pain All Other Systems Reviewed Negative Unless Noted: Yes Past Yvemnzr-Wfixta-Deszjz Hx Patient Social History Tobacco Use?: No Substance use?: No Alcohol Use?: No Immunizations Up To Date Tetanus Booster (TDap): Unknown First/Initial COVID19 Vaccinat: 06/13/20 Second COVID19 Vaccination Ron: 07/11/20 COVID19 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: [employer] Seasonal Allergies Seasonal Allergies: No Past Medical History Surgery/Hospitalization HX: TYPE 2 DM STAGE 3 KIDNEY DZ K[facility] HYSTERECTOMY Surgeries: Yes Breast, Hysterectomy, Lumpectomy Respiratory: No Currently Using CPAP: No Currently Using BIPAP: No Cardiac: Yes (STENT PLACEMENT) Atrial Fibrillation, Hypertension Neurological: Yes (chronic fatigue syndrome) Stroke, TIA Reproductive Disorders: No Female Reproductive Disorders: Denies Sexually Transmitted Disease: No Genitourinary: No Gastrointestinal: Yes Colitis, Gastroesophageal Reflux, Liver Disease/Jaundice, Hemorrhoids Musculoskeletal: Yes Arthritis Endocrine: Yes (DIET CONTROLLED DM ) Diabetes, Non-Insulin dep, Lupus HEENT: Yes Cataract, Glaucoma Loss of Vision: Bilateral Hearing Impairment: Denies Cancer: No Psychosocial: Yes Anxiety Integumentary: No Blood Disorders: No Adverse Reaction/Blood Tranf: No Family Medical History Reviewed Nursing Family Hx Completed stroke G8 BROTHER G8 SISTER Hypertension 19 MOTHER Neoplasm G8 BROTHER (colon cancer) Hypertension Physical Exam Vital Signs Vital Signs - First Documented 01/29/21 20:10 Temp 37.1 Pulse 67 Resp 18 B/P (MAP) 159/57 (91) Pulse Ox 100 O2 Delivery Room Air Capillary Refill : Less Than 3 Seconds Height, Weight, BMI Height: 5'5.00" Weight: 170lbs. 2.0oz. [id number]; 22.00 BMI Method:Estimated General Appearance: No Apparent Distress, WD/WN Neck: Full Range of Motion, Normal Inspection, Non Tender, Supple Cardiovascular: Regular Rate, Rhythm, No Murmur, Normal Peripheral Pulses Respiratory: Chest Non Tender, Lungs Clear, Normal Breath Sounds Gastrointestinal: Normal Bowel Sounds, Non Tender, Soft Back: Normal Inspection, No CVA Tenderness, Decreased Range of Motion, Muscle Spasm, Vertebral Tenderness (lumbar spine. ), Other (Power V/V L4-S1. Neg SLR. ) Extremity: Normal Capillary Refill, Normal Inspection, Normal Range of Motion, No Calf Tenderness Neurologic/Psychiatric: Alert, Oriented x3, No Motor/Sensory Deficits, Normal Mood/Affect Skin: Normal Color, Warm/Dry Progress/Results/Core Measures Results/Orders Lab Results Laboratory Tests Test 01/29/21 20:22 01/29/21 20:39 Range/Units Urine Color YELLOW Urine Clarity CLEAR Urine pH 6.0 5-9 Urine Specific [place] 1.025 H 1.016-1.022 Urine Protein NEGATIVE NEGATIVE Urine Glucose (UA) NEGATIVE NEGATIVE Urine Ketones NEGATIVE NEGATIVE Urine Nitrite NEGATIVE NEGATIVE Urine Bilirubin NEGATIVE NEGATIVE Urine Urobilinogen 0.2 < = 1.0 MG/DL Urine Leukocyte Esterase TRACE H NEGATIVE Urine RBC (Auto) NEGATIVE NEGATIVE Urine RBC 0-2 /HPF Urine WBC 2-5 /HPF Urine Crystals PRESENT H /LPF Urine Amorphous Sediment RARE ANN-MARIE URATES H /LPF Urine Bacteria TRACE /HPF Urine Casts NONE /LPF Urine Mucus NEGATIVE /LPF Urine Culture Indicated NO White Blood Count 12.1 H 4.3-11.0 10^3/uL Red Blood Count 3.92 3.80-5.11 10^6/uL Hemoglobin 12.4 11.5-16.0 g/dL Hematocrit 37 35-52 % Mean Corpuscular Volume 94 80-99 fL Mean Corpuscular Hemoglobin 32 25-34 pg Mean Corpuscular Hemoglobin Concent 34 32-36 g/dL Red Cell Distribution Width 12.8 10.0-14.5 % Platelet Count 256 130-400 10^3/uL Mean Platelet Volume 9.3 9.0-12.2 fL Immature Granulocyte % (Auto) 0 % Neutrophils (%) (Auto) 85 H 42-75 % Lymphocytes (%) (Auto) 9 L 12-44 % Monocytes (%) (Auto) 5 0-12 % Eosinophils (%) (Auto) 0 0-10 % Basophils (%) (Auto) 0 0-10 % Neutrophils # (Auto) 10.4 H 1.8-7.8 10^3/uL Lymphocytes # (Auto) 1.0 1.0-4.0 10^3/uL Monocytes # (Auto) 0.6 0.0-1.0 10^3/uL Eosinophils # (Auto) 0.0 0.0-0.3 10^3/uL Basophils # (Auto) 0.1 0.0-0.1 10^3/uL Immature Granulocyte # (Auto) 0.1 0.0-0.1 10^3/uL Sodium Level 140 135-145 MMOL/L Potassium Level 3.8 3.6-5.0 MMOL/L Chloride Level 101 98-107 MMOL/L Carbon Dioxide Level 25 21-32 MMOL/L Anion Gap 14 5-14 MMOL/L Blood Urea Nitrogen 24 H 7-18 MG/DL Creatinine 1.06 0.60-1.30 MG/DL Estimat Glomerular Filtration Rate 51 BUN/Creatinine Ratio 23 Glucose Level 123 H 70-105 MG/DL Calcium Level 10.3 H 8.5-10.1 MG/DL Corrected Calcium 8.5-10.1 MG/DL Total Bilirubin 0.6 0.1-1.0 MG/DL Aspartate Amino Transf (AST/SGOT) 44 H 5-34 U/L Alanine Aminotransferase (ALT/SGPT) 16 0-55 U/L Alkaline Phosphatase 130 40-136 U/L Total Protein 8.2 6.4-8.2 GM/DL Albumin 4.6 H 3.2-4.5 GM/DL My Orders Orders - ANNE-MARIE ALVA Ua Culture If Indicated (01/29/21 20:09) Cbc With Automated Diff (01/29/21 20:33) Comprehensive Metabolic Panel (01/29/21 20:33) Ct Abd/Pelvis Wo(Kidney Stone) (01/29/21 21:27) Tramadol Tablet (Ultram Tablet) (01/29/21 21:27) Ed Iv/Invasive Line Start (01/29/21 21:27) Ns Iv 1000 Ml (Sodium Chloride 0.9%) (01/29/21 21:30) Rx-Tramadol Hcl (Rx-Ultram) (01/29/21 22:31) Vital Signs/I&O 01/29/21 20:10 Temp 37.1 Pulse 67 Resp 18 B/P (MAP) 159/57 (91) Pulse Ox 100 O2 Delivery Room Air Blood Pressure Mean: 91 Progress Progress Note : Time: 20:10 Progress Note Patient seen and evaluated, will obtain labs and reevaluate. 2100 patient is complaining of pain 11/20, will give tramadol 50 mg orally, normal saline 1 L per IV and obtain CT of the abdomen and pelvis for kidney stones. 2199 patient reports improvement of pain since having the tramadol. CT results do not show urolithiasis. Moderate degenerative changes noted in the lumbar spine. CT results discussed with the patient and her family. No other requests at this time. Discharge instructions and return precautions reviewed. Diagnostic Imaging Diagonstic Imaging: CT Plain Films/CT/US/NM/MRI: abdomen, pelvis Comments NAME: MARINE SAMPSON [facility] REC#: [id number] PT STATUS: REG ER : 1945 PHYSICIAN: ANNE-MARIE ALVA ADMIT DATE: 01/29/21/ER Draft Date of Exam:01/29/21 CT ABD/PELVIS WO(KIDNEY STONE) INDICATION: Right flank pain TECHNIQUE: Multiple contiguous axial images were obtained through the abdomen and pelvis without the use of intravenous contrast. Auto Exposure Controls were utilized during the CT exam to meet ALARA standards for radiation dose reduction. COMPARISON made to 05/04/2012 The visualized portions of the lung bases are clear. There were no pleural fluid collections. There is no free intraperitoneal air. There are diffuse degenerative findings in the lumbar spine. There is mild loss of height of L5 and L1 of indeterminate age. The liver shows no focal lesion. Gallbladder is surgically absent. The spleen, adrenals, and pancreas are unremarkable. The kidneys bilaterally show no stone or hydronephrosis. There is no retroperitoneal mass or adenopathy. There is no ascites or abnormal fluid question. There are atherosclerotic calcifications of the aorta without evidence of aneurysm. There is no sign of bowel obstruction. There is prominent stool in the colon. IMPRESSION: No evidence of urinary tract stone or hydronephrosis. Prominent stool in the colon. No abdominal mass or abnormal fluid collection. There are diffuse degenerative findings in the lumbar spine. There is mild loss of height of L5 and L1 of indeterminate age. If there is focal pain in these areas, MRI may be of benefit. Dictated on workstation # [id number] Dict: 01/29/212210 Trans: 01/29/212215 [facility] [id number] Interpreted by: LUISA CHRISTINE MD Electronically signed by: Reviewed: Reviewed by Me Departure Impression Primary Impression: Back pain Qualified Codes: M54.42 - Lumbago with sciatica, left side; M54.41 - Lumbago with sciatica, right side Disposition: HOME, SELF-CARE Condition: Improved Departure-Patient Inst. Decision time for Depature: 21:50 Referrals: CHRISTINE ECHEVERRIA MD (PCP/Family) Primary Care Physician Patient Instructions: Low Back Pain (DC) Add. Discharge Instructions: You can alternate ice or heat to your low back as needed. Ambulate with your cane at all times. Follow-up with Dr. Echeverria if symptoms are not improving or worsen. Take the tramadol 1 tablet every 8 hours as needed for pain. Return to the emergency department for new, urgent healthcare needs. All discharge instructions reviewed with patient and/or family. Voiced understanding. Scripts Tramadol HCl (Tramadol HCl) 50 Mg Tablet 50 MG PO Q6H PRN for PAIN, #20 TAB 0 Refills Prov: ANNE-MARIE ALVA 01/29/21 Copy Copies To 1: CHRISTINE ECHEVERRIA MD, AMY ARNP Jan 29, 2021 21:13
[2021-01-29] MEDS ORDERED: NS IV 1000 ML 1,000 ML IV SCH (21:30)
--- NOTE | 2021-01-29 22:16 | Diagnostic Imaging Report ---
INDICATION: Right flank pain TECHNIQUE: Multiple contiguous axial images were obtained through the abdomen and pelvis without the use of intravenous contrast. Auto Exposure Controls were utilized during the CT exam to meet ALARA standards for radiation dose reduction. COMPARISON made to 05/04/2012 The visualized portions of the lung bases are clear. There were no pleural fluid collections. There is no free intraperitoneal air. There are diffuse degenerative findings in the lumbar spine. There is mild loss of height of L5 and L1 of indeterminate age. The liver shows no focal lesion. Gallbladder is surgically absent. The spleen, adrenals, and pancreas are unremarkable. The kidneys bilaterally show no stone or hydronephrosis. There is no retroperitoneal mass or adenopathy. There is no ascites or abnormal fluid question. There are atherosclerotic calcifications of the aorta without evidence of aneurysm. There is no sign of bowel obstruction. There is prominent stool in the colon. IMPRESSION: No evidence of urinary tract stone or hydronephrosis. Prominent stool in the colon. No abdominal mass or abnormal fluid collection. There are diffuse degenerative findings in the lumbar spine. There is mild loss of height of L5 and L1 of indeterminate age. If there is focal pain in these areas, MRI may be of benefit. Dictated by: Dictated on workstation # [id number]
[2021-01-29] MEDS ORDERED: TRM50T PO (22:30)
[2021-01-29 23:00] VITALS: BP 132/55
== END 2021-01-29 23:00 | disposition home or self-care (01) ==
LOC: EDUNIT# 19:56 → ER 19:58
DX: M54.50 Low back pain, unspecified (principal); I10 Essential (primary) hypertension; I48.91 Unspecified atrial fibrillation; K21.9 Gastro-esophageal reflux disease without esophagitis; F41.9 Anxiety disorder, unspecified; H40.9 Unspecified glaucoma; E11.9 Type 2 diabetes mellitus without complications; Z86.73 Personal history of transient ischemic attack (TIA), and cerebral infarction without residual deficits; Z79.82 Long term (current) use of aspirin; Z79.01 Long term (current) use of anticoagulants; Z79.899 Other long term (current) drug therapy
CPT/HCPCS: 36415; 74176; 80053; 81000; 85025

== ENCOUNTER 2021-02-19 20:15 | Emergency (ER) | payer MEDICARE ==
[~2021-02-19] VITALS: Ht 154 cm; Wt 54.6 kg
[~2021-02-19 20:15] MED LIST changes: +TRM50T PO
[2021-02-19 20:54] LABS: CLARITY,URINE SL CLOUDY; COLOR,URINE DARK YELLOW; GLUCOSE, URINE (UA) NEGATIVE (NEGATIVE); KETONES,URINE 1+ (NEGATIVE); LEUKOCYTE ESTERASE ,URINE NEGATIVE (NEGATIVE); NITRITE,URINE NEGATIVE (NEGATIVE); PROTEIN,URINE TRACE (NEGATIVE)
[2021-02-19] MEDS ORDERED: POTASSIUM CL 10MEQ/50ML IVPB 50 ML IV ONE (21:00)
[2021-02-19] MEDS ORDERED: NS IV 500 ML 500 ML IV ONE (21:00)
--- NOTE | 2021-02-19 21:02 | ED Cardiac General ---
History of Present Illness General Chief Complaint: General Problems/Pain Stated Complaint: WEAKNESS Nursing Triage Note: PT ARRIVES TO ER WITH VIA WC WITH C/O WEAKNESS AND LOW POTASSIUM LEVELS. PT WAS SEEN AT [facility] TODAY FOR A BACK SURGERY BUT AFTER INITIAL PRE OP LABS THEY CANCELLED THE SURGERY FOR LOW POTASSIUM. PT CAME HERE BC SHE WAS NOT BEING GIVEN MEDS OR BEING SEEN IN [facility] ER Source: patient Exam Limitations: no limitations History of Present Illness Date Seen by Provider: Feb 19, 2021 Time Seen by Provider: 20:44 Initial Comments Patient and to ER by private conveyance with chief complaint that she is having some weakness and back pain and was scheduled for kyphoplasty. She went to Dr. Mcdonnell for preoperative labs today and discovered the potassium was around 2.5. They were sent over to the ER to get an infusion of potassium. She is post to be on potassium tablets because she takes Lasix but she thinks she was told not to take potassium by her knitting machine operator automatic Dr. oLra so she has not been taking it. She is taking her Lasix and lisinopril and other medications as prescribed. She is on Eliquis for atrial fibrillation, she is on Imuran for lupus and rheumatoid arthritis. She is not having any chest pain or shortness of air. 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 Allergies and Home Medications Allergies Coded Allergies: Sulfa (Sulfonamide Antibiotics) (Verified Allergy, Unknown, 04/05/18) Thiazides (Verified Allergy, Unknown, 01/29/21) amlodipine (Verified Allergy, Unknown, 01/29/21) hydralazine (Verified Allergy, Unknown, 01/29/21) latex (Verified Allergy, Unknown, 04/05/18) Patient Home Medication List Home Medication List Reviewed: Yes Aspirin (Aspirin EC) 81 Mg Tablet., 81 MG PO DAILY, (Reported) Entered as Reported by: ZANE MCFARLAND on 05/24/17 1721 Azathioprine (Azathioprine) 50 Mg Tablet, 75 MG PO DAILY, (Reported) Entered as Reported by: ZANE MCFARLAND on 05/24/17 1818 Bimatoprost (Lumigan) 2.5 Ml Drops, 1 DROP OU HS, (Reported) Entered as Reported by: ROSALINDA HERNANDEZ on 11/19/16 1356 Clonazepam (Clonazepam) 0.5 Mg Tablet, 1 MG PO HS, (Reported) Entered as Reported by: ROSALINDA HERNANDEZ on 11/19/16 135 Clopidogrel Bisulfate (Clopidogrel) 75 Mg Tablet, 75 MG PO DAILY, (Reported) Entered as Reported by: ZANE MCFARLAND on 05/24/17 172 Denosumab (Prolia) 60 Mg/1 Ml Disp.syrin, 60 MG SQ EVERY 6 MONTHS, (Reported) Entered as Reported by: ROSALINDA HERNANDEZ on 11/19/16 135 Diphenoxylate HCl/Atropine (Diphenoxylate-Atrop 2.5-0.025) 1 Each Tablet, 1 TAB PO HS PRN for DIARRHEA, (Reported) Entered as Reported by: ROSALINDA HERNANDEZ on 11/19/16 135 Famotidine (Pepcid) 20 Mg Tablet, 20 MG PO HS PRN for HEARTBURN, (Reported) Entered as Reported by: ZANE MCFARLAND on 05/24/17 1848 Fluoxetine HCl (Fluoxetine HCl) 40 Mg Capsule, 40 MG PO DAILY, (Reported) Entered as Reported by: ZANE MCFARLAND on 05/24/17 172 Folic Acid (Folic Acid) 1 Mg Tablet, 1 MG PO 1200, (Reported) Entered as Reported by: ZANE MCFARLAND on 05/24/17 1820 Losartan Potassium (Losartan Potassium) 100 Mg Tablet, 100 MG PO HS, (Reported) Entered as Reported by: ROSALINDA HERNANDEZ on 11/19/16 135 Mesalamine (Lialda) 1.2 Gm Tablet.dr, 1.2 GM PO HS, (Reported) Entered as Reported by: ROSALINDA HERNANDEZ on 11/19/16 135 [place]-3/Dha/Epa/Fish Oil (Fish Oil 1,400 mg Softgel) 1 Each Capsule.dr, 1,400 MG PO 1700, (Reported) Entered as Reported by: ROSALINDA HERNANDEZ on 11/19/16 135 Pramipexole Di-HCl (Pramipexole Dihydrochloride) 0.5 Mg Tablet, 0.5 MG PO HS, (Reported) Entered as Reported by: ROSALINDA HERNANDEZ on 11/19/16 135 Pravastatin Sodium (Pravastatin Sodium) 80 Mg Tablet, 80 MG PO HS, (Reported) Entered as Reported by: ROSALINDA HERNANDEZ on 11/19/16 135 Timolol Maleate (Timolol Maleate 0.5%) 5 Ml Drops, 1 DROP OU BID, (Reported) Entered as Reported by: ROSALINDA HERNANDEZ on 11/19/16 1356 Tramadol HCl (Tramadol HCl) 50 Mg Tablet, 50 MG PO Q6H PRN for PAIN Prescribed by: ANNE-MARIE ALVA on 01/29/21 2231 Review of Systems Review of Systems Constitutional: No chills, No fever, No malaise EENTM: No Blurred Vision, No Double Vision Respiratory: Denies Cough, Denies Shortness of Air Cardiovascular: Denies Chest Pain, Denies Lightheadedness Gastrointestinal: Denies Constipated, Denies Diarrhea, Denies Nausea Genitourinary: Denies Burning, Denies Discharge Musculoskeletal: No back pain, No joint pain Skin: No pruritus, No rash Psychiatric/Neurological: Denies Anxiety, Denies Depressed All Other Systems Reviewed Negative Unless Noted: Yes Past Ehkvydm-Pcgbwh-Hfjbuu Hx Patient Social History Tobacco Use?: No Substance use?: No Alcohol Use?: No Pt feels they are or have been: No Immunizations Up To Date Tetanus Booster (TDap): Unknown Influenza Vaccine Up-to-Date: Yes; Up-to-Date First/Initial COVID19 Vaccinat: 06/13/20 Second COVID19 Vaccination Ron: 07/11/20 COVID19 Vaccine Optical Manufacturing Technician: NuzzelMiky Seasonal Allergies Seasonal Allergies: No Past Medical History Surgery/Hospitalization HX: TYPE 2 DM STAGE 3 KIDNEY DZ KAYLYN HYSTERECTOMY Surgeries: Yes Breast, Hysterectomy, Lumpectomy Respiratory: No Currently Using CPAP: No Currently Using BIPAP: No Cardiac: Yes (STENT PLACEMENT) Atrial Fibrillation, Hypertension Neurological: Yes (chronic fatigue syndrome) Stroke, TIA Reproductive Disorders: No Female Reproductive Disorders: Denies Sexually Transmitted Disease: No Genitourinary: No Gastrointestinal: Yes Colitis, Gastroesophageal Reflux, Liver Disease/Jaundice, Hemorrhoids Musculoskeletal: Yes Arthritis Endocrine: Yes (DIET CONTROLLED DM ) Diabetes, Non-Insulin dep, Lupus HEENT: Yes Cataract, Glaucoma Loss of Vision: Bilateral Hearing Impairment: Denies Cancer: No Psychosocial: Yes Anxiety Integumentary: No Blood Disorders: No Adverse Reaction/Blood Tranf: No Family Medical History Completed stroke G8 BROTHER G8 SISTER Hypertension 19 MOTHER Neoplasm G8 BROTHER (colon cancer) Hypertension Physical Exam Vital Signs Vital Signs - First Documented 02/19/21 20:20 Temp 36.3 Pulse 89 Resp 18 B/P (MAP) 154/66 (95) Pulse Ox 97 O2 Delivery Room Air Capillary Refill : Less Than 3 Seconds Height, Weight, BMI Height: 5'5.00" Weight: 170lbs. 2.0oz. [id number]; 23.00 BMI Method:Estimated General Appearance: No Apparent Distress, Chronically ill HEENT: PERRL/EOMI, Pharynx Normal, Moist Mucous Membranes Neck: Full Range of Motion, Normal Inspection Respiratory: Lungs Clear, Normal Breath Sounds, No Accessory Muscle Use, No R espiratory Distress Cardiovascular: Regular Rate, Rhythm, No Edema, Normal Peripheral Pulses Gastrointestinal: Normal Bowel Sounds, Non Tender, Soft Extremity: Normal Capillary Refill, Normal Inspection Neurologic/Psychiatric: Alert, Oriented x3 Skin: Normal Color, Warm/Dry Progress/Results/Core Measures Results/Orders Lab Results Laboratory Tests Test 02/19/21 20:49 02/19/21 21:09 Range/Units Urine Color DARK YELLOW Urine Clarity SL CLOUDY Urine pH 6.0 5-9 Urine Specific [place] >=1.030 1.016-1.022 Urine Protein TRACE H NEGATIVE Urine Glucose (UA) NEGATIVE NEGATIVE Urine Ketones 1+ H NEGATIVE Urine Nitrite NEGATIVE NEGATIVE Urine Bilirubin 2+ H NEGATIVE Urine Urobilinogen 0.2 < = 1.0 MG/DL Urine Leukocyte Esterase NEGATIVE NEGATIVE Urine RBC (Auto) TRACE-I H NEGATIVE Urine RBC 0-2 /HPF Urine WBC 5-10 H /HPF Urine Squamous Epithelial Cells 2-5 /HPF Urine Crystals NONE /LPF Urine Bacteria MODERATE H /HPF Urine Casts PRESENT /LPF Urine Hyaline Casts 0-2 H /LPF Urine Granular Casts 0-2 H /LPF Urine White Blood Cell Casts 0-2 H /LPF Urine Mucus SMALL H /LPF Urine Culture Indicated YES White Blood Count 11.2 H 4.3-11.0 10^3/uL Red Blood Count 3.85 3.80-5.11 10^6/uL Hemoglobin 11.8 11.5-16.0 g/dL Hematocrit 35 35-52 % Mean Corpuscular Volume 91 80-99 fL Mean Corpuscular Hemoglobin 31 25-34 pg Mean Corpuscular Hemoglobin Concent 34 32-36 g/dL Red Cell Distribution Width 13.6 10.0-14.5 % Platelet Count 403 H 130-400 10^3/uL Mean Platelet Volume 8.3 L 9.0-12.2 fL Immature Granulocyte % (Auto) 1 % Neutrophils (%) (Auto) 75 42-75 % Lymphocytes (%) (Auto) 14 12-44 % Monocytes (%) (Auto) 9 0-12 % Eosinophils (%) (Auto) 2 0-10 % Basophils (%) (Auto) 1 0-10 % Neutrophils # (Auto) 8.4 H 1.8-7.8 10^3/uL Lymphocytes # (Auto) 1.5 1.0-4.0 10^3/uL Monocytes # (Auto) 1.0 0.0-1.0 10^3/uL Eosinophils # (Auto) 0.2 0.0-0.3 10^3/uL Basophils # (Auto) 0.1 0.0-0.1 10^3/uL Immature Granulocyte # (Auto) 0.1 0.0-0.1 10^3/uL Sodium Level 138 135-145 MMOL/L Potassium Level 2.7 L 3.6-5.0 MMOL/L Chloride Level 86 L 98-107 MMOL/L Carbon Dioxide Level 30 21-32 MMOL/L Anion Gap 22 H 5-14 MMOL/L Blood Urea Nitrogen 22 H 7-18 MG/DL Creatinine 0.91 0.60-1.30 MG/DL Estimat Glomerular Filtration Rate 61 BUN/Creatinine Ratio 24 Glucose Level 104 70-105 MG/DL Calcium Level 9.2 8.5-10.1 MG/DL Corrected Calcium 9.7 8.5-10.1 MG/DL Magnesium Level 2.2 1.6-2.4 MG/DL Total Bilirubin 0.6 0.1-1.0 MG/DL Aspartate Amino Transf (AST/SGOT) 28 5-34 U/L Alanine Aminotransferase (ALT/SGPT) 21 0-55 U/L Alkaline Phosphatase 110 40-136 U/L C-Reactive Protein High Sensitivity 7.24 H 0.00-0.50 MG/DL Total Protein 6.7 6.4-8.2 GM/DL Albumin 3.4 3.2-4.5 GM/DL My Orders Orders - ZENAIDA NUR Ua Culture If Indicated (02/19/21 20:45) Cbc With Automated Diff (02/19/21 20:45) Comprehensive Metabolic Panel (02/19/21 20:45) Hs C Reactive Protein (02/19/21 20:45) Magnesium (02/19/21 20:57) Continuous Ekg Monitoring (02/19/21 20:57) Ekg Tracing (02/19/21 20:57) Ed Iv/Invasive Line Start (02/19/21 20:57) Ns Iv 500 Ml (Sodium Chloride 0.9%) (02/19/21 21:00) Potassium Cl 10meq/50ml Ivpb (Kcl 10 Meq (02/19/21 21:00) Urine Culture (02/19/21 20:49) Ceftriaxone (Rocephin) (02/19/21 22:00) Medications Given in ED Current Medications Medications Dose Ordered Sig/Bety Route Start Time Stop Time Status Last Admin Dose Admin Ceftriaxone Sodium 1000 mg/ Sterile Water 10 ml @ 200 mls/hr ONCE ONCE IV 02/19/21 22:00 02/19/21 22:02 DC 02/19/21 22:00 200 MLS/HR Potassium Chloride 50 ml @ 50 mls/hr ONCE ONCE IV 02/19/21 21:00 02/19/21 21:59 DC 02/19/21 21:18 50 MLS/HR Sodium Chloride 500 ml @ 0 mls/hr Q0M ONCE IV 02/19/21 21:00 02/19/21 21:01 DC 02/19/21 21:18 500 MLS/HR Vital Signs/I&O 02/19/21 20:20 Temp 36.3 Pulse 89 Resp 18 B/P (MAP) 154/66 (95) Pulse Ox 97 O2 Delivery Room Air Blood Pressure Mean: 95 Progress Progress Note : Time: 21:01 Progress Note 500 cc bag of fluid with 10 of potassium over an hour. We will get some labs including a magnesium and an EKG. Initial ECG Impression Date: Feb 19, 2021 Initial ECG Impression Time: 20:54 Initial ECG Rate: 86 Initial ECG Rhythm: A Fib/Flutter Initial ECG Intervals: QT (472) Initial ECG Impression: Normal, Nonspecific Changes Initial ECG Comparisson: No Previous ECG Available Comment Atrial fibrillation with rapid ventricular response. No clinically relevant ST changes. Departure Impression Primary Impression: Hypokalemia due to excessive renal loss of potassium Additional Impressions: Hypokalemia due to inadequate potassium intake Urinary tract infection Qualified Codes: N30.00 - Acute cystitis without hematuria Disposition: HOME, SELF-CARE Condition: Stable Departure-Patient Inst. Decision time for Depature: 22:20 Referrals: CHRISTINE LUNDY MD (PCP/Family) Primary Care Physician Patient Instructions: Hypokalemia (DC), Urinary Tract Infection, Adult (DC) Add. Discharge Instructions: Foods high in potassium such as bananas and spinach etc. You should also take potassium supplements 20 mEq twice a day using your previously prescribed supplements until you see the knitting machine operator automatic next week. Cephalexin 1 capsule twice a day for the next week to treat urinary tract infection. Return to ER for worsening symptoms. Call your orthopedic surgeon to arrange follow-up. All discharge instructions reviewed with patient and/or family. Voiced understanding. Scripts Cephalexin (Cephalexin) 500 Mg Tablet 500 MG PO BID for 7 Days, #14 TAB 0 Refills Prov: ZENAIDA NUR 02/19/21 ZENAIDA NUR Feb 19, 2021 21:02
[2021-02-19 21:17] LABS: BASOPHILS # (AUTO) 0.1 10^3/uL (0.0-0.1); BASOPHILS % (AUTO) 1 % (0-10); EOSINOPHILS # (AUTO) 0.2 10^3/uL (0.0-0.3); EOSINOPHILS % (AUTO) 2 % (0-10); HEMATOCRIT 35 % (35-52); HEMOGLOBIN 11.8 g/dL (11.5-16.0); LYMPHOCYTES # (AUTO) 1.5 10^3/uL (1.0-4.0); LYMPHOCYTES % (AUTO) 14 % (12-44); MEAN CORPUSCULAR HEMOGLOBIN 31 pg (25-34); MEAN CORPUSCULAR HGB CONC 34 g/dL (32-36); MEAN CORPUSCULAR VOLUME 91 fL (80-99); MEAN PLATELET VOLUME 8.3 fL (9.0-12.2); MONOCYTES % (AUTO) 9 % (0-12); NEUTROPHILS # (AUTO) 8.4 10^3/uL (1.8-7.8); NEUTROPHILS % (AUTO) 75 % (42-75); PLATELET COUNT 403 10^3/uL (130-400); WHITE BLOOD COUNT 11.2 10^3/uL (4.3-11.0)
[2021-02-19 21:22] LABS: BACTERIA,URINE MODERATE /HPF; RBC,URINE 0-2 /HPF
[2021-02-19 21:23] LABS: GRANULAR CASTS,URINE 0-2 /LPF; HYALINE CASTS, URINE 0-2 /LPF; WHITE BLOOD CELL CASTS, URINE 0-2 /LPF
[2021-02-19 21:24] LABS: ALBUMIN 3.4 GM/DL (3.2-4.5); POTASSIUM 2.7 MMOL/L (3.6-5.0)
[2021-02-19 21:25] LABS: CALCIUM 9.2 MG/DL (8.5-10.1)
[2021-02-19 21:27] LABS: TOTAL PROTEIN 6.7 GM/DL (6.4-8.2)
[2021-02-19 21:28] LABS: BILIRUBIN,TOTAL 0.6 MG/DL (0.1-1.0)
[2021-02-19 21:30] LABS: CREATININE SERUM 0.91 MG/DL (0.60-1.30)
[2021-02-19 21:33] LABS: MAGNESIUM 2.2 MG/DL (1.6-2.4)
[2021-02-19] MEDS ORDERED: cefTRIAXone 1,000 MG in WATER (STERILE) FOR INJECTION 10 ML IV ONE (22:00)
[2021-02-19] MEDS ORDERED: CEPH500T PO (22:22)
[2021-02-19 22:35] VITALS: BP 130/55
[2021-02-20 09:41] LABS: BILIRUBIN,URINE 2+ (NEGATIVE)
== END 2021-02-19 22:35 | disposition home or self-care (01) ==
LOC: EDUNIT# 20:15 → ER 20:17
DX: E87.6 Hypokalemia (principal); N39.0 Urinary tract infection, site not specified; I10 Essential (primary) hypertension; K21.9 Gastro-esophageal reflux disease without esophagitis; E11.9 Type 2 diabetes mellitus without complications; I48.91 Unspecified atrial fibrillation; H40.9 Unspecified glaucoma; F41.9 Anxiety disorder, unspecified; Z86.73 Personal history of transient ischemic attack (TIA), and cerebral infarction without residual deficits; Z79.899 Other long term (current) drug therapy; Z79.82 Long term (current) use of aspirin; Z79.01 Long term (current) use of anticoagulants
CPT/HCPCS: 36415; 80053; 81000; 83735; 85025; 86141; 87088; 93005

== ENCOUNTER → 2021-06-12 | Outpatient (CLI) | payer MEDICARE ==
[~2021-06-12] MED LIST changes: +CEPH500T PO; +POTA-169 PO; -POTA20TA8 PO
--- NOTE | 2021-06-12 14:07 | Diagnostic Imaging Report ---
INDICATION: Routine screening. Comparison is made with prior mammogram 03/19/2020 and 01/20/2019. 2-D and 3-D bilateral screening mammography was performed with CAD. Both breasts are heterogeneously dense, limiting the sensitivity of mammography. Left MLO view is limited. Reportedly patient had recent back surgery. No mass or malignant-appearing microcalcifications are seen. There are vascular calcifications present as well as benign parenchymal calcifications. Axillae are unremarkable. IMPRESSION: No mammographic features suspicious for malignancy are identified. BI-RADS Category 2 ACR BI-RADS Category 2: Benign findings. Result letter will be mailed to the patient. Note: At least 10% of breast cancer is not imaged by mammography. Dictated by: Dictated on workstation # [id number]
== END ==
LOC: RAD 10:45
PROVIDERS: ATTEND Family Medicine
DX: Z12.31 Encounter for screening mammogram for malignant neoplasm of breast (principal)
CPT/HCPCS: 77063; 77067

== ENCOUNTER → 2021-09-10 | Outpatient (RCR) | payer MEDICARE | END | disposition home or self-care (01) | PROVIDERS: ATTEND Family Medicine | DX: R53.1 Weakness (principal); R26.89 Other abnormalities of gait and mobility ==

== ENCOUNTER 2021-10-04 11:04 | Outpatient (RCR) | payer MEDICARE | END 2021-10-10 | disposition home or self-care (01) | PROVIDERS: ATTEND Family Medicine | DX: R53.1 Weakness (principal); R26.89 Other abnormalities of gait and mobility; E11.9 Type 2 diabetes mellitus without complications ==

== ENCOUNTER 2021-10-31 10:59 | Outpatient (RCR) | payer MEDICARE | END 2021-10-31 12:24 | disposition home or self-care (01) | PROVIDERS: ATTEND Family Medicine | DX: R53.1 Weakness (principal); R26.89 Other abnormalities of gait and mobility; E11.9 Type 2 diabetes mellitus without complications ==

== ENCOUNTER → 2022-02-11 | Outpatient (CLI) | payer MEDICARE | LOC: CARD 13:03 | PROVIDERS: ATTEND Internal Medicine Cardiovascular Disease | DX: I08.0 Rheumatic disorders of both mitral and aortic valves (principal); I10 Essential (primary) hypertension | CPT/HCPCS: 93306 ==

== ENCOUNTER → 2022-05-13 | Outpatient (RCR) | payer MEDICARE | END | disposition home or self-care (01) | PROVIDERS: ATTEND Family Medicine | DX: R53.1 Weakness (principal); R26.89 Other abnormalities of gait and mobility; Z98.1 Arthrodesis status ==

== ENCOUNTER 2022-06-06 10:28 | Outpatient (RCR) | payer MEDICARE | END 2022-06-06 16:06 | disposition home or self-care (01) | PROVIDERS: ATTEND Family Medicine | DX: R53.1 Weakness (principal); R26.89 Other abnormalities of gait and mobility; Z98.1 Arthrodesis status ==

== ENCOUNTER → 2022-07-28 | Outpatient (CLI) | payer MEDICARE ==
--- NOTE | 2022-07-28 12:15 | Diagnostic Imaging Report ---
INDICATION: Routine screening. COMPARISON: 06/12/2021 and 03/19/2020. TECHNIQUE: 2D and 3D bilateral screening mammography was performed with CAD. FINDINGS: Both breasts are heterogeneously dense, limiting the sensitivity of mammography. The parenchymal pattern is stable. There are scattered benign parenchymal and vascular calcifications bilaterally. The overall quality of the MLO studies is limited due to limited patient mobility. IMPRESSION: No mammographic features suspicious for malignancy are identified. ACR BI-RADS Category 2: Benign findings. Result letter will be mailed to the patient. Note: At least 10% of breast cancer is not imaged by mammography. Dictated by: Dictated on workstation # [id number]
== END ==
LOC: RAD 11:00
PROVIDERS: ATTEND Family Medicine
DX: Z12.31 Encounter for screening mammogram for malignant neoplasm of breast (principal)
CPT/HCPCS: 77063; 77067

== ENCOUNTER 2022-12-05 11:22 | Outpatient (CLI) | payer MEDICARE ==
[~2022-12-05] VITALS: Ht 154.9 cm; Wt 48.1 kg
[~2022-12-05 11:22] MED LIST changes: -LOSA100T57 PO; +LOSA100T58 PO; +TIMO5DRO16 OU; -TIMO5DRO5 OU
[2022-12-09] MEDS ORDERED: LORA10TA7 PO (07:19)
[2022-12-09] MEDS ORDERED: LISI20TA26 PO (07:19)
[2022-12-09] MEDS ORDERED: RIVA20TA PO (07:19)
[2022-12-09] MEDS ORDERED: POTA-169 PO (07:19)
[2022-12-09] MEDS ORDERED: OMEP20CA18 PO (07:19)
== END 2022-12-09 07:22 | disposition home or self-care (01) ==
LOC: PREOP 11:22
PROVIDERS: ATTEND Surgery
DX: Z01.818 Encounter for other preprocedural examination (principal)

== ENCOUNTER 2022-12-10 12:28 | Day surgery (SDC) | payer MEDICARE ==
[~2022-12-10] VITALS: Ht 154.9 cm; Wt 48.1 kg
[~2022-12-10 12:28] MED LIST changes: +LISI20TA26 PO; +LORA10TA7 PO; +OMEP20CA18 PO; +RIVA20TA PO
[2022-12-10] MEDS ORDERED: LACTATED RINGERS 1,000 ML 1,000 ML IV STA (12:34)
[2022-12-10] MEDS ORDERED: LIDOCAINE JELLY 2% 6 ML SYRINGE ONE (12:44)
[2022-12-10] MEDS ORDERED: LIDOCAINE JELLY 2% 6 ML SYRINGE MM PRN (12:45)
[2022-12-10] MEDS ORDERED: ONDANSETRON INJECTION 4 MG/2 ML (SDV) IVP PRN (13:00)
[2022-12-10] MEDS ORDERED: ONDANSETRON 4 MG ORAL DISSOLVE TABLET PO PRN (13:00)
--- NOTE | 2022-12-10 13:00 | Progress Note-Pre Operative ---
Pre-Operative Progress Note Date of Available H&P: Dec 10, 2022 Date H&P Reviewed: Dec 10, 2022 Time H&P Reviewed: 12:30 History & Physical: No changes noted Pre-Operative Diagnosis: screening/FH colon ca VALERY WITT MD Dec 10, 2022 13:00
--- NOTE | 2022-12-10 13:02 | Discharge Inst-Surgical ---
D/C Lap Instructions-EDUAR Follow Up Activity as tolerated High Fiber Diet 25g or more per day Avoid Alcohol, Caffeine, Spicy [place] and Acid foods. Drink 64 fluid oz or more of fluids per day. Symptoms to Report: Fever over 101 degree F, Nausea/Vomiting If any problems/questions: Contact your physician or go to Emergency Room VALERY WITT MD Dec 10, 2022 13:02
[2022-12-10 13:20] VITALS: BP 173/65
--- NOTE | 2022-12-10 14:37 | Anesthesia-General Post-Op ---
MAC Patient Condition Mental Status/LOC: Same as Preop Cardiovascular: Satisfactory Nausea/Vomiting: Absent Respiratory: Satisfactory Pain: Controlled Complications: Absent Post Op Complications Complications None Follow Up Care/Instructions Patient Instructions None needed. Anesthesiology Discharge Order Discharge Order Patient is doing well, no complaints, stable vital signs, no apparent adverse anesthesia problems. No complications reported per nursing. ALEJANDRO MEAD CRNA Dec 10, 2022 14:37
[2022-12-10 14:40] VITALS: BP 157/65
[2022-12-10 14:42] VITALS: BP 159/72
[2022-12-10 14:45] VITALS: BP 154/70
--- NOTE | 2022-12-10 14:49 | Progress Note-Post Operative ---
Post-Operative Progess Note Surgeon (s)/Heel Brusher (s) Surgeon VALERY WITT MD Heel Brusher: none Pre-Operative Diagnosis screening/FH colon ca Post-Operative Diagnosis mild chronic stage 2 ext and int hemorrhoids. Procedure & Operative Findings Date of Procedure 12/10/22 Procedure Performed/Findings colonoscopy Anesthesia Type mac Estimated Blood Loss Estimated blood loss (mL): minimal Specimens/Packing Specimens Removed none VALERY WITT MD Dec 10, 2022 14:49
[2022-12-10 15:40] VITALS: BP 154/70
--- NOTE | 2022-12-10 19:51 | OPERATIVE REPORT ---
DATE OF SERVICE: 12/10/2022 ATTENDING PRIMARY CARE PHYSICIAN: Dr. Maria Luisa Echeverria. PREOPERATIVE DIAGNOSES: Screening colonoscopy. Family history of colon cancer. POSTOPERATIVE DIAGNOSES: Mild chronic stage II, external and internal hemorrhoids. PROCEDURE: Colonoscopy. SURGEON: Valery Witt MD ANESTHESIA: Monitored anesthesia care. ESTIMATED BLOOD LOSS: Minimal. FINDINGS: Mild chronic stage II, external and internal hemorrhoids. DISPOSITION: The patient tolerated the procedure well. INDICATIONS: The patient is a 77-year-old female referred over to us for screening colonoscopy. Her last one was greater than 10 years ago and she believes this to be normal. She states that she has had some diarrhea approximately 3-4 times a week; however, states that this might be related to her diet. She does not report any change in diet as well as no change in her drinking water source. She does not report any red blood per rectum, nor any dark tarry stools. She does have a family history of colon cancer with her brother being diagnosed with the disease at age 42. The patient was brought to the endoscopy suite and laid in the left lateral decubitus position. After adequate IV pain and sedative medications and monitored anesthesia care, a digital rectal examination was performed. Mild chronic stage II, external and internal hemorrhoids were identified, not actively edematous nor inflamed and no bleeding. Normal sphincter tone was felt and there were no palpable masses. The endoscope was then intubated into the anus, rectum gently insufflated. The endoscope was then advanced through the valves of Sebastian of the rectum with no polyps or any neoplasms identified. We then proceeded through the sigmoid colon where no diverticulosis identified. The endoscope was then advanced through the remainder of the descending, transverse and ascending colon to the cecum, which were normal. There were no polyps or any neoplasms identified. There is also no mucosal inflammatory change to indicate any active colitis. The endoscope was then slowly withdrawn while taking a second look and suctioning of residual air with no additional findings. The patient tolerated the procedure well. We will recommend the necessary lifestyle and dietary accommodations including a high-fiber diet with addition of a fiber supplement, which should equal or exceed 25 grams daily, which helps with promoting soft stools on a daily basis when an individual has got harder stools with constipation or well-formed stools. This may also help with loose diarrhea and make this more solid in consistency. Due to her episodes of diarrhea, we will also proceed with trial of cholestyramine, which acts as bile acid binder in hopes of decreasing gastrointestinal motility and also decreasing the problems with diarrhea. If she is asymptomatic, we will still recommend a followup colonoscopy within 5 years due to her first-degree family history of colon cancer. Job ID: [id number] DocumentID: [id number] Dictated Date: 12/10/2022 14:40:58 Shuttle Fixer Date: 12/10/2022 19:48:00 Dictated By: VALERY WITT MD MTDKori
== END 2022-12-10 15:40 | disposition home or self-care (01) ==
LOC: ENDO 12:28
PROVIDERS: ATTEND Surgery
DX: Z12.11 Encounter for screening for malignant neoplasm of colon (principal); Z80.0 Family history of malignant neoplasm of digestive organs; K64.1 Second degree hemorrhoids; K64.4 Residual hemorrhoidal skin tags